=== PATIENT | male | born 1930 | race African-American/Black ===

== ENCOUNTER 2018-01-13 10:53 | Inpatient (IN) | payer OTHER, MEDICARE ==
[2018-01-13] MEDS ORDERED: ASPIRIN 81 MG PO STA (11:21)
--- NOTE | 2018-01-13 11:23 | ED ---
SOB HPI - General Chief Complaint: Shortness of Breath Stated Complaint: SOB/Ankles Swelling Time Seen by Provider: 01/13/18 11:17 Source: patient Mode of arrival: ambulatory Limitations: no limitations - History of Present Illness Initial Comments: Patient complains of shortness of breath. He states that shortness of breath is worse when he lies down to go to bed. He also complains of swelling in the legs. He has bilateral leg swelling. He has no calf pain or tenderness. He has no chest pain or pressure. He has no belly or back pain. He has no headache, lightheadedness or dizziness. He has no neck pain or stiffness. He has no change in vision or hearing. He has taken no new medications for the symptoms. He states he recently started new supplement, and thought his symptoms were related to that. - Related Data Home Medications Medication Instructions Recorded Confirmed Aspirin EC [Ecotrin Low Dose] 81 mg PO HS 01/13/18 01/13/18 Ferrous Sulfate [Feosol] 325 mg PO BID 01/13/18 01/13/18 Metoprolol Tartrate [Lopressor] 25 mg PO BID 01/13/18 01/13/18 Sun Chlorella 5 tab PO DAILY 01/13/18 01/13/18 diphenhydrAMINE [Benadryl] 25 mg PO BID 01/13/18 01/13/18 traZODone HCL 50 mg PO HS 01/13/18 01/13/18 Allergies Allergy/AdvReac Type Severity Reaction Status Date / Time No Known Allergies Allergy Verified 01/13/18 11:29 Review of Systems ROS Statement: Those systems with pertinent positive or pertinent negative responses have been documented in the HPI. ROS Other: All systems not noted in ROS Statement are negative. Past Medical History Past Medical History: Coronary Artery Disease (CAD) History of Any Multi-Drug Resistant Organisms: None Reported Past Surgical History: Coronary Bypass/CABG Past Psychological History: No Psychological Hx Reported Smoking Status: Former smoker Past Alcohol Use History: Rare Past Drug Use History: None Reported General Exam Limitations: no limitations General appearance: alert, in no apparent distress Head exam: Present: atraumatic, normocephalic, normal inspection Eye exam: Present: normal appearance, PERRL, EOMI. Absent: scleral icterus, conjunctival injection, periorbital swelling ENT exam: Present: normal exam, mucous membranes moist Neck exam: Present: normal inspection. Absent: tenderness, meningismus, lymphadenopathy Respiratory exam: Present: rales. Absent: respiratory distress, wheezes, rhonchi, stridor Cardiovascular Exam: Present: regular rate, normal rhythm, systolic murmur. Absent: diastolic murmur, rubs, gallop, clicks GI/Abdominal exam: Present: soft, normal bowel sounds. Absent: distended, tenderness, guarding, rebound, rigid Extremities exam: Present: normal inspection, full ROM, normal capillary refill , pedal edema. Absent: tenderness, joint swelling, calf tenderness Back exam: Present: normal inspection Neurological exam: Present: alert, oriented X3, CN II-XII intact Psychiatric exam: Present: normal affect, normal mood Skin exam: Present: warm, dry, intact, normal color. Absent: rash Course Vital Signs 01/13/18 01/13/18 01/13/18 10:57 11:34 12:30 Temperature 98.2 F Pulse Rate 79 60 Respiratory 20 18 18 Rate Blood Pressure 138/75 152/81 O2 Sat by Pulse 99 100 Oximetry Medical Decision Making - Medical Decision Making Patient complains of shortness of breath. Chest x-ray reveals pulmonary edema. He hasn't elevated BNP, but negative troponin. I ordered him 40 mg IV Lasix. He will be admitted to the hospital. I will consult cardiology. - Lab Data Result diagrams: 01/13/18 11:20 01/13/18 11:20 Lab Results 01/13/18 01/13/18 01/13/18 Range/Units 11:20 11:20 11:20 WBC 3.8 (3.8-10.6) k/uL RBC 3.00 L (4.30-5.90) m/uL Hgb 8.8 L (13.0-17.5) gm/dL Hct 27.4 L (39.0-53.0) % MCV 91.3 (80.0-100.0) fL MCH 29.4 (25.0-35.0) pg MCHC 32.2 (31.0-37.0) g/dL RDW 13.1 (11.5-15.5) % PT 10.9 (9.0-12.0) sec INR 1.1 (<1.2) APTT 26.8 (22.0-30.0) sec Sodium 124 L (137-145) mmol/L Potassium 4.9 (3.5-5.1) mmol/L Chloride 93 L (98-107) mmol/L Carbon Dioxide 21 L (22-30) mmol/L Anion Gap 10 mmol/L BUN 15 (9-20) mg/dL Creatinine 1.30 H (0.66-1.25) mg/dL Est GFR (CKD-EPI)AfAm 58 (>60 ml/min/1.73 sqM) Est GFR (CKD-EPI)NonAf 50 (>60 ml/min/1.73 sqM) Glucose 90 (74-99) mg/dL Calcium 8.7 (8.4-10.2) mg/dL Magnesium 1.6 (1.6-2.3) mg/dL Total Bilirubin 0.6 (0.2-1.3) mg/dL AST 64 H (17-59) U/L ALT 38 (21-72) U/L Alkaline Phosphatase 66 (38-126) U/L Troponin I (0.000-0.034) ng/mL Total Protein 6.7 (6.3-8.2) g/dL Albumin 3.7 (3.5-5.0) g/dL Lipase 262 (23-300) U/L 01/13/18 Range/Units 11:20 WBC (3.8-10.6) k/uL RBC (4.30-5.90) m/uL Hgb (13.0-17.5) gm/dL Hct (39.0-53.0) % MCV (80.0-100.0) fL MCH (25.0-35.0) pg MCHC (31.0-37.0) g/dL RDW (11.5-15.5) % PT (9.0-12.0) sec INR (<1.2) APTT (22.0-30.0) sec Sodium (137-145) mmol/L Potassium (3.5-5.1) mmol/L Chloride (98-107) mmol/L Carbon Dioxide (22-30) mmol/L Anion Gap mmol/L BUN (9-20) mg/dL Creatinine (0.66-1.25) mg/dL Est GFR (CKD-EPI)AfAm (>60 ml/min/1.73 sqM) Est GFR (CKD-EPI)NonAf (>60 ml/min/1.73 sqM) Glucose (74-99) mg/dL Calcium (8.4-10.2) mg/dL Magnesium (1.6-2.3) mg/dL Total Bilirubin (0.2-1.3) mg/dL AST (17-59) U/L ALT (21-72) U/L Alkaline Phosphatase (38-126) U/L Troponin I 0.023 (0.000-0.034) ng/mL Total Protein (6.3-8.2) g/dL Albumin (3.5-5.0) g/dL Lipase (23-300) U/L 01/13/18 11:58 Twelve-lead EKG shows ventricular rate 66 bpm, normal LA interval and QRS complexes, no ST elevation or depression, interpreted by me as normal sinus rhythm. Disposition Clinical Impression: Congestive heart failure Disposition: ADMITTED IP TO THIS HOSP Condition: Fair Is patient prescribed a controlled substance at d/c from ED?: No Referrals: [facility],Clinic [Primary Care Provider] - 1-2 days
--- NOTE | 2018-01-13 12:00 | XR ---
EXAMINATION TYPE: XR chest 2V DATE OF EXAM: 01/13/2018 COMPARISON: NONE HISTORY: Chest pain and shortness of breath, bilateral leg edema TECHNIQUE: Frontal and lateral views of the chest are obtained. FINDINGS: Patient is post median sternotomy. Heart is enlarged. Prominent lung lines compatible with COPD. Interstitium is increased. 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 Mild a nterior wedge compression deformity noted at the lower thoracic spine. Bone mineralization is reduced . No pneumothorax. Suspect small pleural effusions, there is blunting the costophrenic angles. IMPRESSION: Findings compatible with congestive heart failure. Follow-up is recommended.
[2018-01-13 12:04] LABS: Albumin 3.7 g/dL (3.5-5.0); Calcium 8.7 mg/dL (8.4-10.2); INR 1.1 (<1.2); Magnesium 1.6 mg/dL (1.6-2.3); Partial Thromboplastin Time 26.8 sec (22.0-30.0); Potassium 4.9 mmol/L (3.5-5.1); Prothrombin Time 10.9 sec (9.0-12.0); Total Bilirubin 0.6 mg/dL (0.2-1.3); Total Protein 6.7 g/dL (6.3-8.2)
[2018-01-13 12:10] LABS: HCT 27.4 % (39.0-53.0); HGB 8.8 gm/dL (13.0-17.5); MCH 29.4 pg (25.0-35.0); MCHC 32.2 g/dL (31.0-37.0); MCV 91.3 fL (80.0-100.0); Mean Platelet Volume 9.8; RDW 13.1 % (11.5-15.5); WBC 3.8 k/uL (3.8-10.6)
[2018-01-13] MEDS ORDERED: FUROSEMIDE 10 MG/ML 4 ML VIAL IV STA (12:32)
[2018-01-13] MEDS ORDERED: NALOXONE 0.4 MG/ML 1 ML VIAL IV PRN (12:37)
[2018-01-13 12:46] LABS: Eosinophils # (M) 0.42 k/uL (0-0.7); Lymphocytes # (M) 0.76 k/uL (1.0-4.8); Monocytes # (M) 0.46 k/uL (0-1.0); Neutrophils # (M) 2.17 k/uL (1.3-7.7); Neutrophils % (M) 57 %; Nucleated Red Blood Cells 0 /100 WBC (0-0); Total Cells Counted 100
[2018-01-13 12:48] LABS: Poikilocytosis (M) Present
--- NOTE | 2018-01-13 16:58 | P.HPIM ---
History of Present Illness Patient given comments of shortness of breath orthopnea and paroxysmal nocturnal dyspnea going on for 3 days patient does have pedal edema elevated JVD does have pulmonary edema on the chest x-ray patient had open heart surgery for valve replacement patient doesn't exactly remember what valve was replaced patient denied any fever chills patient was complaining of cough without any significant sputum production patient denied any lightheadedness dizziness. Fevers. Patient is being admitted for CHF exacerbation regarding her will be obtained. Review of Systems REVIEW OF SYSTEMS: CONSTITUTIONAL: No fever, no malaise, no fatigue. HEENT: No recent visual problems or hearing problems. Denied any sore throat. CARDIOVASCULAR: No chest pain, PULMONARY: No shortness of breath, no cough, no hemoptysis. GASTROINTESTINAL: No diarrhea, no nausea, no vomiting, no abdominal pain. Normoactive bowel sounds. NEUROLOGICAL: No headaches, no weakness, no numbness. HEMATOLOGICAL: Denies any bleeding or petechiae. GENITOURINARY: Denies any burning micturition, frequency, or urgency. MUSCULOSKELETAL/RHEUMATOLOGICAL: Denies any joint pain, swelling, or any muscle pain. ENDOCRINE: Denies any polyuria or polydipsia. The rest of the 14-point review of systems is negative. Past Medical History Past Medical History: Coronary Artery Disease (CAD) History of Any Multi-Drug Resistant Organisms: None Reported Past Surgical History: Coronary Bypass/CABG Smoking Status: Former smoker - Past Family History Father Family Medical History: Cancer Additional Family Medical History / Comment(s): lung cancer Sister(s) Family Medical History: Cancer Medications and Allergies Home Medications Medication Instructions Recorded Confirmed Type Aspirin EC [Ecotrin Low Dose] 81 mg PO HS 01/13/18 01/13/18 History Ferrous Sulfate [Feosol] 325 mg PO BID 01/13/18 01/13/18 History Metoprolol Tartrate [Lopressor] 25 mg PO BID 01/13/18 01/13/18 History Sun Chlorella 5 tab PO DAILY 01/13/18 01/13/18 History diphenhydrAMINE [Benadryl] 25 mg PO BID 01/13/18 01/13/18 History traZODone HCL 50 mg PO HS 01/13/18 01/13/18 History Allergies Allergy/AdvReac Type Severity Reaction Status Date / Time No Known Allergies Allergy Verified 01/13/18 11:29 Physical Exam Vitals: Vital Signs Temp Pulse Resp BP Pulse Ox 01/13/18 16:30 74 16 171/85 96 01/13/18 15:30 72 16 159/86 97 01/13/18 14:30 66 18 145/84 100 01/13/18 13:37 63 18 126/89 100 01/13/18 12:30 60 18 152/81 100 01/13/18 11:34 18 01/13/18 10:57 98.2 F 79 20 138/75 99 Intake and Output 01/13/18 01/13/18 01/13/18 06:59 14:59 22:59 Other: Weight 61.235 kg PHYSICAL EXAMINATION: GENERAL: The patient is alert and oriented x3, not in any acute distress. Well developed, well nourished. HEENT: Pupils are round and equally reacting to light. EOMI. No scleral icterus. No conjunctival pallor. Normocephalic, atraumatic. No pharyngeal erythema. No thyromegaly. CARDIOVASCULAR: S1 and S2 present. No murmurs, rubs, or gallops. Patient does have elevated JVD PULMONARY: Diffuse bilateral crackles were appreciated in bilateral lung phillips. ABDOMEN: Soft, nontender, nondistended, normoactive bowel sounds. No palpable organomegaly. MUSCULOSKELETAL: No joint swelling or deformity. EXTREMITIES: No cyanosis, clubbing, or does have 1+ pitting pedal edema. NEUROLOGICAL: Gross neurological examination did not reveal any focal deficits. SKIN: No rashes. Results CBC & Chem 7: 01/13/18 11:20 01/13/18 11:20 Labs: Abnormal Lab Results - Last 24 Hours (Table) 01/13/18 01/13/18 Range/Units 11:20 11:20 RBC 3.00 L (4.30-5.90) m/uL Hgb 8.8 L (13.0-17.5) gm/dL Hct 27.4 L (39.0-53.0) % Lymphocytes # (Manual) 0.76 L (1.0-4.8) k/uL Sodium 124 L (137-145) mmol/L Chloride 93 L (98-107) mmol/L Carbon Dioxide 21 L (22-30) mmol/L Creatinine 1.30 H (0.66-1.25) mg/dL AST 64 H (17-59) U/L Assessment and Plan Plan: -Possible new onset congestive heart failure do not have any ejection fraction available patient will be treated for CHF exacerbation, patient will be started on IV Lasix will obtain echocardiogram cardiology was consulted troponin so far negative -History of valve replacement unsure which valve was replaced may be contributing to his CHF -Hyponatremia: Hypervolemic hyponatremia expected to improve with IV Lasix -Renal failure: I do not have his baseline creatinine can be chronic kidney disease or acute renal failure will continue with Lasix repeat basic metabolic profile tomorrow -Anemia chronic etiology is unknown will need further evaluation as an outpatient outpatient patient has normocytic anemia
[2018-01-13] MEDS: METOPROLOL TARTRATE 25 MG TAB PO SCH (21:55)
[2018-01-13] MEDS: FERROUS SULFATE 325 MG TAB PO SCH (21:55)
[2018-01-13] MEDS: traZODone HCL 50 MG TAB PO SCH (21:55)
[2018-01-13] MEDS: FUROSEMIDE 10 MG/ML 4 ML VIAL IV SCH (21:57)
[2018-01-13] MEDS: FAMOTIDINE 20 MG TAB PO SCH (21:57)
[2018-01-14 07:40] LABS: Calcium 8.6 mg/dL (8.4-10.2); Potassium 4.1 mmol/L (3.5-5.1)
[2018-01-14] MEDS: FUROSEMIDE 10 MG/ML 4 ML VIAL IV SCH ×2 (07:52→19:46)
[2018-01-14] MEDS: METOPROLOL TARTRATE 25 MG TAB PO SCH ×2 (07:53→19:46)
[2018-01-14] MEDS: FAMOTIDINE 20 MG TAB PO SCH ×2 (07:53→19:45)
[2018-01-14] MEDS: FERROUS SULFATE 325 MG TAB PO SCH ×2 (07:53→19:46)
--- NOTE | 2018-01-14 10:43 | P.CRDCN ---
History of Present Illness Consult date: 01/14/18 Requesting physician: Iva Quinn Consult reason: congestive heart failure Chief complaint: Shortness of breath History of present illness: This is a pleasant 87-year-old -[place] gentleman with known history of prior aortic valve replacement with tissue valve, hypertension, [facility] [place]. [place] [facility] [place] He presents to the hospital with symptoms of a 3 day duration of shortness of breath with associated bilateral lower extremity edema. His blood pressure on arrival here was 138/75 , heart rate in the 70s, 99 percent on room air. A blood cell count 3.8, hemoglobin 8.8, platelet count not calculated. Sodium on admission 124, this morning 1:30. BUN 18, creatinine 1.3. Magnesium level I.6. Troponins 0.0-3, 0.012, 0.012. BNP level 5450. Patient was initiated on IV Lasix in the emergency room. According to him he has not been told in the past had any congestive heart failure. His home medications include metoprolol 25 mg twice a day, iron supplementation and a baby aspirin daily. Patient did diurese well through the night on IV Lasix although his weight is not reflective of this. He does state that his breathing has improved since his admission, edema is significantly less as well. Past Medical History Past Medical History: Coronary Artery Disease (CAD) History of Any Multi-Drug Resistant Organisms: None Reported Past Surgical History: Coronary Bypass/CABG Smoking Status: Former smoker - Past Family History Father Family Medical History: Cancer Additional Family Medical History / Comment(s): lung cancer Sister(s) Family Medical History: Cancer Medications and Allergies Home Medications Medication Instructions Recorded Confirmed Type Aspirin EC [Ecotrin Low Dose] 81 mg PO HS 01/13/18 01/13/18 History Ferrous Sulfate [Feosol] 325 mg PO BID 01/13/18 01/13/18 History Metoprolol Tartrate [Lopressor] 25 mg PO BID 01/13/18 01/13/18 History Sun Chlorella 5 tab PO DAILY 01/13/18 01/13/18 History diphenhydrAMINE [Benadryl] 25 mg PO BID 01/13/18 01/13/18 History traZODone HCL 50 mg PO HS 01/13/18 01/13/18 History Allergies Allergy/AdvReac Type Severity Reaction Status Date / Time No Known Allergies Allergy Verified 01/13/18 11:29 Physical Exam Vitals: Vital Signs Temp Pulse Pulse Resp BP BP Pulse Ox 01/14/18 08:00 98.2 F 73 18 113/67 94 L 01/14/18 04:00 98 F 71 18 120/70 96 01/14/18 00:00 71 18 133/71 97 01/13/18 20:00 96.9 F L 76 18 141/69 98 01/13/18 18:43 74 18 01/13/18 17:40 98.2 F 75 18 170/87 100 01/13/18 16:30 74 16 171/85 96 01/13/18 15:30 72 16 159/86 97 01/13/18 14:30 66 18 145/84 100 01/13/18 13:37 63 18 126/89 100 01/13/18 12:30 60 18 152/81 100 01/13/18 11:34 18 01/13/18 10:57 98.2 F 79 20 138/75 99 Intake and Output 01/13/18 01/14/18 01/14/18 22:59 06:59 14:59 Intake Total 240 Output Total 850 1550 280 Balance -850 -1550 -40 Intake: Oral 240 Output: Urine 850 1550 280 Other: Voiding Method Urinal Urinal Urinal # Voids 1 1 1 Weight 64.5 kg PHYSICAL EXAMINATION: GENERAL: -[place]e 87-year-old gentleman in no apparent distress at the time of my examination. HEENT: Head is atraumatic, normocephalic. Pupils equal, round. Sclera anicteric. Conjunctiva are clear. Mucous membranes of the mouth are moist. Neck is supple. There is elevated jugular venous pressure.] bruit is heard. HEART EXAMINATION: Heart S1 S2 1 systolic murmur is heard. CHEST EXAMINATION: Lungs reveal diminished air entry to bilateral bases. ABDOMEN: Soft, nontender. Bowel sounds are heard. No organomegaly noted. EXTREMITIES: 2+ peripheral pulses with trace evidence of peripheral edema and no calf tenderness noted. NEUROLOGIC patient is awake, alert and oriented -3. . Results 01/13/18 11:20 01/14/18 06:57 Cardiac Enzymes 01/13/18 01/13/18 01/13/18 Range/Units 11:20 11:20 17:37 AST 64 H (17-59) U/L Troponin I 0.023 <0.012 (0.000-0.034) ng/mL 01/13/18 Range/Units 22:56 AST (17-59) U/L Troponin I 0.012 (0.000-0.034) ng/mL Coagulation 01/13/18 Range/Units 11:20 PT 10.9 (9.0-12.0) sec APTT 26.8 (22.0-30.0) sec CBC 01/13/18 Range/Units 11:20 WBC 3.8 (3.8-10.6) k/uL RBC 3.00 L (4.30-5.90) m/uL Hgb 8.8 L (13.0-17.5) gm/dL Hct 27.4 L (39.0-53.0) % Plt Count (150-450) k/uL Comprehensive Metabolic Panel 01/13/18 01/14/18 Range/Units 11:20 06:57 Sodium 124 L 130 L (137-145) mmol/L Potassium 4.9 4.1 (3.5-5.1) mmol/L Chloride 93 L 94 L (98-107) mmol/L Carbon Dioxide 21 L 25 (22-30) mmol/L BUN 15 18 (9-20) mg/dL Creatinine 1.30 H 1.30 H (0.66-1.25) mg/dL Glucose 90 78 (74-99) mg/dL Calcium 8.7 8.6 (8.4-10.2) mg/dL AST 64 H (17-59) U/L ALT 38 (21-72) U/L Alkaline Phosphatase 66 (38-126) U/L Total Protein 6.7 (6.3-8.2) g/dL Albumin 3.7 (3.5-5.0) g/dL Current Medications Generic Name Dose Route Start Last Admin Trade Name Freq PRN Reason Stop Dose Admin Aspirin 81 mg 01/14/18 21:00 Aspirin PO HS YAHIR Famotidine 20 mg 01/13/18 21:00 01/14/18 07:53 Pepcid PO 20 mg BID YAHIR Administration Ferrous Sulfate 325 mg 01/13/18 21:00 01/14/18 07:53 Feosol PO 325 mg BID YAHIR Administration Furosemide 40 mg 01/13/18 21:00 01/14/18 07:52 Lasix IV 40 mg Q12HR YAHIR Administration Metoprolol Tartrate 25 mg 01/13/18 21:00 01/14/18 07:53 Lopressor PO 25 mg BID YAHIR Administration Naloxone HCl 0.2 mg 01/13/18 12:37 Narcan IV Q2M PRN Opioid Reversal Trazodone HCl 50 mg 01/13/18 21:00 01/13/18 21:55 Desyrel PO 50 mg HS YAHIR Administration Intake and Output 01/13/18 01/14/18 01/14/18 22:59 06:59 14:59 Intake Total 240 Output Total 850 1550 280 Balance -850 -1550 -40 Intake: Oral 240 Output: Urine 850 1550 280 Other: Voiding Method Urinal Urinal Urinal # Voids 1 1 1 Weight 64.5 kg 01/13/18 11:20 01/14/18 06:57 EKG Interpretations (text) EKG shows a normal sinus rhythm with no acute changes. 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 #3 hypertension #4 anemia, hemoglobin 8.8 #5 hyponatremia Plan We will order an echocardiogram with Doppler study. Continue IV Lasix. Monitor intake and output along with daily weights, daily lytes BUN and creatinine. DNP note has been reviewed, I agree with a documented findings and plan of care. Patient was seen and examined.
[2018-01-14 14:01] VITALS: BMI 20.9
--- NOTE | 2018-01-14 15:02 | P.CRDCN ---
History of Present Illness History of present illness: Patient interviewed and examined. Admitted with shortness of breath for the last 3-4 days only especially when he lay flat. On examination he has a murmur of mitral regurgitation, pansystolic. Prior dictated valve replacement with a tissue valve when he is back Responded to medical treatment. Suggest 2-D echo to assess the mitral valve May consider MARIVEL depending upon the findings, if indicated Past Medical History Past Medical History: Coronary Artery Disease (CAD) History of Any Multi-Drug Resistant Organisms: None Reported Past Surgical History: Coronary Bypass/CABG Smoking Status: Former smoker - Past Family History Father Family Medical History: Cancer Additional Family Medical History / Comment(s): lung cancer Sister(s) Family Medical History: Cancer Medications and Allergies Home Medications Medication Instructions Recorded Confirmed Type Aspirin EC [Ecotrin Low Dose] 81 mg PO HS 01/13/18 01/13/18 History Ferrous Sulfate [Feosol] 325 mg PO BID 01/13/18 01/13/18 History Metoprolol Tartrate [Lopressor] 25 mg PO BID 01/13/18 01/13/18 History Sun Chlorella 5 tab PO DAILY 01/13/18 01/13/18 History diphenhydrAMINE [Benadryl] 25 mg PO BID 01/13/18 01/13/18 History traZODone HCL 50 mg PO HS 01/13/18 01/13/18 History Allergies Allergy/AdvReac Type Severity Reaction Status Date / Time No Known Allergies Allergy Verified 01/13/18 11:29 Physical Exam Vitals: Vital Signs Temp Pulse Pulse Resp BP BP Pulse Ox 01/14/18 12:10 70 18 01/14/18 12:00 98.2 F 70 18 123/73 100 01/14/18 08:00 98.2 F 73 18 113/67 94 L 01/14/18 04:00 98 F 71 18 120/70 96 01/14/18 00:00 71 18 133/71 97 01/13/18 20:00 96.9 F L 76 18 141/69 98 01/13/18 18:43 74 18 01/13/18 17:40 98.2 F 75 18 170/87 100 01/13/18 16:30 74 16 171/85 96 01/13/18 15:30 72 16 159/86 97 Intake and Output 0601/14/18 01/14/18 06:59 14:59 22:59 Intake Total 1080 Output Total 1550 2120 Balance -1550 -1040 Intake: Oral 1080 Output: Urine 1550 2120 Other: Voiding Method Urinal Urinal # Voids 1 3 Weight 64.5 kg 64.5 kg Results 01/13/18 11:20 01/14/18 06:57 Cardiac Enzymes 01/13/18 01/13/18 Range/Units 17:37 22:56 Troponin I <0.012 0.012 (0.000-0.034) ng/mL Comprehensive Metabolic Panel 01/14/18 Range/Units 06:57 Sodium 130 L (137-145) mmol/L Potassium 4.1 (3.5-5.1) mmol/L Chloride 94 L (98-107) mmol/L Carbon Dioxide 25 (22-30) mmol/L BUN 18 (9-20) mg/dL Creatinine 1.30 H (0.66-1.25) mg/dL Glucose 78 (74-99) mg/dL Calcium 8.6 (8.4-10.2) mg/dL Current Medications Generic Name Dose Route Start Last Admin Trade Name Freq PRN Reason Stop Dose Admin Aspirin 81 mg 01/14/18 21:00 Aspirin PO HS YAHIR Famotidine 20 mg 01/13/18 21:00 01/14/18 07:53 Pepcid PO 20 mg BID YAHIR Administration Ferrous Sulfate 325 mg 01/13/18 21:00 01/14/18 07:53 Feosol PO 325 mg BID YAHIR Administration Furosemide 40 mg 01/13/18 21:00 01/14/18 07:52 Lasix IV 40 mg Q12HR YAHIR Administration Metoprolol Tartrate 25 mg 01/13/18 21:00 01/14/18 07:53 Lopressor PO 25 mg BID YAHIR Administration Naloxone HCl 0.2 mg 01/13/18 12:37 Narcan IV Q2M PRN Opioid Reversal Trazodone HCl 50 mg 01/13/18 21:00 01/13/18 21:55 Desyrel PO 50 mg HS YAHIR Administration Intake and Output 01/14/18 01/14/18 01/14/18 06:59 14:59 22:59 Intake Total 1080 Output Total 1550 2120 Balance -1550 -1040 Intake: Oral 1080 Output: Urine 1550 2120 Other: Voiding Method Urinal Urinal # Voids 1 3 Weight 64.5 kg 64.5 kg Patient Weight 01/15/18 06:59 Weight 64.5 kg 01/13/18 11:20 01/14/18 06:57
--- NOTE | 2018-01-14 15:24 | P.PN ---
Subjective Patient is admitted with new-onset congestive heart failure. Patient had what appears like a cardiac valve replacement in the past. Patient also has mitral regurgitant murmur. Patient has significant improvement in his is a respiratory status pedal edema resolved JVD improved lungs appear clear today. Echocardiogram is still pending. Constitutional: Denied any fatigue denied any fever. Cardio vascular: denied any chest pain, palpitations Gastrointestinal denied any nausea vomiting Pulmonary: Denied any shortness of breath cough Neurologic denied any new focal deficits Objective - Vital Signs Vital signs: Vital Signs Temp 98.2 F 01/14/18 12:00 Pulse 70 01/14/18 12:10 Resp 18 01/14/18 12:10 BP 123/73 01/14/18 12:00 Pulse Ox 100 01/14/18 12:00 Intake & Output 01/13/18 01/14/18 01/14/18 18:59 06:59 18:59 Intake Total 1080 Output Total 2400 2120 Balance -2400 -1040 Weight 61.235 kg 64.5 kg 64.5 kg Intake: Oral 1080 Output: Urine 2400 2120 Other: Voiding Method Urinal Urinal # Voids 1 1 3 - Exam PHYSICAL EXAMINATION: GENERAL: The patient is alert and oriented x3, not in any acute distress. Well developed, well nourished. HEENT: Pupils are round and equally reacting to light. EOMI. No scleral icterus. No conjunctival pallor. Normocephalic, atraumatic. No pharyngeal erythema. No thyromegaly. CARDIOVASCULAR: S1 and S2 present. . JVD improved patient does have S3, mitral regurgitant that is pansystolic murmur in the mitral area and systolic murmur and diuretic area PULMONARY: Diffuse bilateral crackles were appreciated in bilateral lung phillips. ABDOMEN: Soft, nontender, nondistended, normoactive bowel sounds. No palpable organomegaly. MUSCULOSKELETAL: No joint swelling or deformity. EXTREMITIES: No cyanosis, clubbing, or does have 1+ pitting pedal edema. NEUROLOGICAL: Gross neurological examination did not reveal any focal deficits. SKIN: No rashes. - Labs CBC & Chem 7: 01/13/18 11:20 01/14/18 06:57 Labs: Abnormal Lab Results - Last 24 Hours (Table) 01/14/18 Range/Units 06:57 Sodium 130 L (137-145) mmol/L Chloride 94 L (98-107) mmol/L Creatinine 1.30 H (0.66-1.25) mg/dL Assessment and Plan Plan: -Possible new onset congestive heart failure do not have any ejection fraction available patient will be treated for CHF exacerbation, improved heart failure symptoms with IV Lasix which will be continued echocardiac exam is pending -History of valve replacement appears to be adequate replacement. -Possibility of mitral regurgitation -Hyponatremia: Hypervolemic hyponatremia improving with IV Lasix -Renal failure: I do not have his baseline creatinine can be chronic kidney disease or acute renal failure, patient's creatinine remained stable continue with Lasix. Presently 1.3 on admission it was 1.3 -Anemia chronic etiology is unknown will need further evaluation as an outpatient outpatient patient has normocytic anemia
--- NOTE | 2018-01-14 15:43 | ECHOF ---
Referral Reason:CHF MEASUREMENTS -------- HEIGHT: 175.3 cm WEIGHT: 61.2 kg BP: 126/89 RVIDd: 3.0 cm (< 3.3) IVSd: 1.5 cm (0.6 - 1.1) LVIDd: 3.5 cm (3.9 - 5.3) LVPWd: 1.6 cm (0.6 - 1.1) IVSs: 1.7 cm LVIDs: 2.2 cm LVPWs: 1.7 cm LAESV Index (A-L): 81.29 ml/m Ao Diam: 3.7 cm (2.0 - 3.7) LA Diam: 5.3 cm (2.7 - 3.8) EPSS: 0.6 cm MV E Estuardo: 1.25 m/s MV DecT: 168 ms MV A Estuardo: 0.47 m/s MV E/A Ratio: 2.67 AV maxP.72 mmHg AV meanP.30 mmHg RAP: 15.00 mmHg RVSP: 62.54 mmHg MV EF SLOPE: 314.21 mm/s (70 - 150) MV EXCURSION: 3.17 cm (> 18.000) FINDINGS -------- Sinus rhythm. This was a technically good study. The left ventricular size is normal. There is moderate concentric left ventricular hypertrophy. O verall left ventricular systolic function is normal with, an EF between 60 - 65 %. The right ventricle is normal in size and function. LA is severely dilated >40 ml/m2 The right atrium is markedly enlarged. There is no evidence of aortic regurgitation. There is no evidence of aortic stenosis. Peak/mean gradient across the Aortic Valve is 25.72mmHg / 9.30mmHg. Normally functioning bioprosthetic valve. The mitral valve leaflets are moderately thickened. Mild mitral annular calcification present. Mo [id number] mitral regurgitation is present. Severe tricuspid regurgitation present. There is moderate pulmonary hypertension. The right ventr icular systolic pressure, as measured by Doppler, is 62.54mmHg. Trace/mild (physiologic) pulmonic regurgitation. The aortic root size is normal. The inferior vena cava is dilated with no significant inspiratory collapse which is consistent estima trevin right atrial pressure of >15mmHg. There is no pericardial effusion. CONCLUSIONS -------- 1. Sinus rhythm. 2. This was a technically good study. 3. The left ventricular size is normal. 4. There is moderate concentric left ventricular hypertrophy. 5. Overall left ventricular systolic function is normal with, an EF between 60 - 65 %. 6. LA is severely dilated >40 ml/m2 7. The right atrium is markedly enlarged. 8. Peak/mean gradient across the Aortic Valve is 25.72mmHg / 9.30mmHg. 9. Normally functioning bioprosthetic valve. 10. The mitral valve leaflets are moderately thickened. 11. Mild mitral annular calcification present. 12. Jjudleyo-gj-phfmur mitral regurgitation is present. 13. Severe tricuspid regurgitation present. 14. There is moderate pulmonary hypertension. 15. The right ventricular systolic pressure, as measured by Doppler, is 62.54mmHg. 16. Trace/mild (physiologic) pulmonic regurgitation. 17. The aortic root size is normal. 18. The inferior vena cava is dilated with no significant inspiratory collapse which is consistent es timated right atrial pressure of >15mmHg. 19. There is no pericardial effusion. [employer] REP: Bang Becker RDCS
[2018-01-14] MEDS: traZODone HCL 50 MG TAB PO SCH (19:54)
[2018-01-14] MEDS ORDERED: ASPIRIN 81 MG PO SCH (21:00)
[2018-01-15 06:38] LABS: Calcium 8.8 mg/dL (8.4-10.2); Potassium 4.1 mmol/L (3.5-5.1)
[2018-01-15] MEDS: FUROSEMIDE 10 MG/ML 4 ML VIAL IV SCH (07:46)
[2018-01-15] MEDS: FERROUS SULFATE 325 MG TAB PO SCH (07:47)
[2018-01-15] MEDS: FAMOTIDINE 20 MG TAB PO SCH (07:47)
[2018-01-15] MEDS: METOPROLOL TARTRATE 25 MG TAB PO SCH (07:47)
[2018-01-15 09:05] VITALS: RESP 18; TEMP 98
[2018-01-15 11:15] VITALS: BP 132/72; PULSE 71
[2018-01-15] MEDS ORDERED: LOSARTAN 50 MG TAB PO SCH (13:00)
--- NOTE | 2018-01-15 13:08 | P.DS ---
Providers Date of admission: 01/13/18 12:37 Attending physician: Iva Quinn Consults: 01/13/18 12:39 Consult Physician Routine Consulting Provider: Sofie Cifuentes Consult Reason/Comments: new onset heart failure Do you want consulting provider notified?: Yes Primary care physician: [facility] Hospital Course: Patient is admitted with new-onset congestive heart failure. Patient had what appears like a cardiac valve replacement in the past. Patient also has mitral regurgitant murmur. Patient has significant improvement in his is a respiratory status pedal edema resolved JVD improved lungs appear clear today. 01/15/2018 Patient is euvolemic at this point of time wanted to be discharged patient is found to have severe mitral regurgitation with moderate pulmonary hypertension with RVSP of around 62. Patient will be discharged on Lasix. Patient does not appear to have any systolic dysfunction may have some diastolic dysfunction. Patient's creatinine and the sodium remained stable. 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 PHYSICAL EXAMINATION: GENERAL: The patient is alert and oriented x3, not in any acute distress. Well developed, well nourished. HEENT: Pupils are round and equally reacting to light. EOMI. No scleral icterus. No conjunctival pallor. Normocephalic, atraumatic. No pharyngeal erythema. No thyromegaly. CARDIOVASCULAR: S1 and S2 present. . JVD improved patient does have S3, mitral regurgitant that is pansystolic murmur in the mitral area PULMONARY: Diffuse bilateral crackles were appreciated in bilateral lung phillips. ABDOMEN: Soft, nontender, nondistended, normoactive bowel sounds. No palpable organomegaly. MUSCULOSKELETAL: No joint swelling or deformity. EXTREMITIES: No cyanosis, clubbing, or does have 1+ pitting pedal edema. NEUROLOGICAL: Gross neurological examination did not reveal any focal deficits. SKIN: No rashes. Assessment and Plan Plan: - new onset congestive heart failure, chronic diastolic dysfunction with acute exacerbation, mitral regurgitation is precipitating his CHF. Patient does have secondary pulmonary hypertension from mitral regurgitation. -History of valve replacement appears to be aortic valve replacement. -Severe mitral regurgitation -Hyponatremia: Hypervolemic hyponatremia improved with Lasix -Renal failure: Probably chronic kidney disease stage III, etiology of chronic kidney disease is unknown -Anemia chronic etiology is unknown will need further evaluation as an outpatient outpatient patient has normocytic anemia Patient Condition at Discharge: Fair Plan - Discharge Summary Discharge Rx Participant: Yes New Discharge Prescriptions: New Furosemide [Lasix] 40 mg PO BID #60 tablet Continue traZODone HCL 50 mg PO HS Aspirin EC [Ecotrin Low Dose] 81 mg PO HS Metoprolol Tartrate [Lopressor] 25 mg PO BID Ferrous Sulfate [Iron (65 MG Elemental)] 325 mg PO BID diphenhydrAMINE [Benadryl] 25 mg PO BID Sun Chlorella 5 tab PO DAILY Discharge Medication List Aspirin EC [Ecotrin Low Dose] 81 mg PO HS 01/13/18 [History] Ferrous Sulfate [Iron (65 MG Elemental)] 325 mg PO BID 01/13/18 [History] Metoprolol Tartrate [Lopressor] 25 mg PO BID 01/13/18 [History] Sun Chlorella 5 tab PO DAILY 01/13/18 [History] diphenhydrAMINE [Benadryl] 25 mg PO BID 01/13/18 [History] traZODone HCL 50 mg PO HS 01/13/18 [History] Furosemide [Lasix] 40 mg PO BID #60 tablet 01/15/18 [Rx] Follow up Appointment(s)/Referral(s): [facility] [Provider Group] - 1 Week (Office to call with time for procedures on Thursday. MARIVEL and cardiac catheterization.) [facility] [Primary Care Provider] - 3 Days (Message left with office updating about patient stay.) Patient Instructions/Handouts: Heart Failure (DC), Left Heart Catheterization ( DC), Transesophageal Echocardiogram (DC), Low Sodium Diet (DC) Discharge Disposition: HOME SELF-CARE
--- NOTE | 2018-01-15 13:16 | PN ---
PROGRESS NOTE Mr. Blue is an 87-year-old male patient who presented with orthopnea, PND and shortness of breath for the last 3 to 4 days only. He has a known bioprosthetic aortic valve in and he underwent surgery many, many years back. On examination, I found a murmur of mitral regurgitation. He underwent a 2D echo after he was treated for his heart failure symptoms. His chest x-ray was consistent with his clinical assessment of congestive heart failure. His 12-lead ECG showed a sinus rhythm with a normal VT with LVH and nonspecific ST-T abnormalities in the lateral precordial leads of about 0.[address]-depression. His 2D echo showed a stable bioprosthetic aortic valve that was functioning normally. The peak gradient was 25. The mean gradient was 9 across this valve. The left atrium was severely dilated. Right atrium was markedly enlarged. Left ventricular systolic function was 60% to 65% with moderate left ventricular hypertrophy. There was severe tricuspid regurgitation and at least moderate to severe mitral regurgitation. Right ventricular systolic pressure is significantly elevated at 62 mmHg and a non-collapsing inferior vena cava. No pericardial effusion. I had a detailed discussion with the patient regarding future plans. On examination today, his heart rates are in the 70s and 80s. He is afebrile 98 degrees Fahrenheit. Blood pressure 132/72 mmHg. Head and neck examination is normal. HEART SOUNDS: There is a pansystolic murmur over the apex. There is a soft ejection systolic murmur over the aortic area. Lungs are clear to auscultation. Extremities are warm, no edema. IMPRESSION: 1. Congestive heart failure secondary to valvular heart disease with preserved left ventricular systolic function. 2. Pulmonary hypertension secondary to valvular heart disease. 3. Bioprosthetic aortic valve that is stable and functioning normally. 4. Severe tricuspid regurgitation secondary to pulmonary hypertension. 5. Significant biatrial enlargement. 6. Left ventricular hypertrophy. 7. Hypertension. SUGGEST: 1. Lasix 60 mg twice daily. 2. Losartan 50 mg daily. 3. Stop metoprolol. The patient would like to go home today and he will come back early next week on Thursday or Thursday for a MARIVEL and coronary angiography. I had a detailed discussion with him regarding management of mitral regurgitation. He understands that if mitral regurgitation is not addressed, then his heart failure would be recurrent and progressive. He will be admitted once again next week and we will re-evaluate his cardiac needs at that point. MAMI / RODYN: [id number] /
[2018-01-15] MEDS ORDERED: FUROSEMIDE 20 MG TAB PO SCH (16:00)
== END 2018-01-15 14:05 | disposition home or self-care (01) | DRG 291 ==
LOC: EC 10:53 → 6SEL 12:37
PROVIDERS: ADMIT Hospitalist; ATTEND Hospitalist
DX: I13.0 Hypertensive heart and chronic kidney disease with heart failure and stage 1 through stage 4 chronic kidney disease, or unspecified chronic kidney disease (principal); I50.33 Acute on chronic diastolic (congestive) heart failure; E87.1 Hypo-osmolality and hyponatremia; N18.3 Chronic kidney disease, stage 3 (moderate); Z87.891 Personal history of nicotine dependence; D63.8 Anemia in other chronic diseases classified elsewhere; I08.1 Rheumatic disorders of both mitral and tricuspid valves; I25.10 Atherosclerotic heart disease of native coronary artery without angina pectoris; Z79.82 Long term (current) use of aspirin; Z79.899 Other long term (current) drug therapy; Z80.1 Family history of malignant neoplasm of trachea, bronchus and lung; Z95.1 Presence of aortocoronary bypass graft; Z95.3 Presence of xenogenic heart valve; I27.22 Pulmonary hypertension due to left heart disease
CPT/HCPCS: 36415; 71046; 80048; 80053; 83690; 83735; 83880; 84484; 85025; 85610; 85730; 93005; 93306; 96374; 99285

== ENCOUNTER → 2019-06-17 | Outpatient (CLI) | payer MEDICARE ==
--- NOTE | 2019-06-17 14:13 | XR ---
EXAMINATION TYPE: XR chest 2V DATE OF EXAM: 06/17/2019 COMPARISON: 01/13/2018 HISTORY: Shortness of breath TECHNIQUE: Frontal and lateral views of the chest are obtained. FINDINGS: Scattered senescent parenchymal changes noted. Hyperinflation compatible with COPD. No evidence for infiltrate. No evidence for atelectasis. Heart size is stable. Mediastinal structures are stable and grossly unremarkable. No evidence for hilar prominence. Degenerative changes dorsal spine. IMPRESSION: 1. No evidence for acute pulmonary disease.
== END | disposition home or self-care (01) ==
LOC: RADXRMAIN 13:50
PROVIDERS: ATTEND Internal Medicine
DX: R06.02 Shortness of breath (principal)
CPT/HCPCS: 71046

== ENCOUNTER 2020-08-25 14:27 | Inpatient (IN) | payer MEDICARE ==
[2020-08-25] MEDS ORDERED: ZOLPIDEM 10 MG TAB PO PRN (19:45)
[2020-08-25] MEDS: IPRATROPIUM-ALBUTEROL 3 ML NEB INHALATION PRN (20:29)
[2020-08-25] MEDS: BUDESONIDE 0.5 MG/2 ML NEBU INHALATION SCH (20:29)
[2020-08-25] MEDS: SODIUM BICARBONATE TAB 650 MG TAB PO SCH (22:14)
[2020-08-25] MEDS: ATORVASTATIN 20 MG TAB PO SCH (22:15)
[2020-08-25] MEDS: METOPROLOL TARTRATE 25 MG TAB PO SCH (22:15)
[2020-08-25] MEDS: MEGESTROL 400 MG/10 ML CUP PO SCH (22:15)
[2020-08-25] MEDS: ASPIRIN 81 MG PO SCH (22:15)
[2020-08-25] MEDS: SODIUM CHLORIDE 0.9% 1,000 ML IV SCH (22:16)
[2020-08-26 06:26] LABS: Basophils % (A) 0 %; Eosinophils # (A) 0.2 k/uL (0-0.7); Eosinophils % (A) 3 %; HCT 22.5 % (39.0-53.0); HGB 7.5 gm/dL (13.0-17.5); Hypochromasia Slight; Lymphocytes # (A) 0.7 k/uL (1.0-4.8); Lymphocytes % (A) 9 %; MCHC 33.3 g/dL (31.0-37.0); MCV 90.1 fL (80.0-100.0); Mean Platelet Volume 8.3; Monocytes # (A) 0.7 k/uL (0-1.0); Monocytes % (A) 9 %; Neutrophils # (A) 5.9 k/uL (1.3-7.7); Neutrophils % (A) 76 %; Platelet Count 116 k/uL (150-450); Poikilocytosis Slight; RDW 15.3 % (11.5-15.5); WBC 7.7 k/uL (3.8-10.6)
[2020-08-26] MEDS: BUDESONIDE 0.5 MG/2 ML NEBU INHALATION SCH ×2 (08:01→19:46)
[2020-08-26] MEDS: IPRATROPIUM-ALBUTEROL 3 ML NEB INHALATION PRN ×2 (08:01→19:46)
[2020-08-26] MEDS: MEGESTROL 400 MG/10 ML CUP PO SCH ×2 (08:47→22:13)
[2020-08-26] MEDS: LOSARTAN 25 MG TAB PO SCH (08:47)
[2020-08-26] MEDS: FUROSEMIDE 20 MG TAB PO SCH (08:47)
[2020-08-26] MEDS: METOPROLOL TARTRATE 25 MG TAB PO SCH ×3 (08:47→22:13)
[2020-08-26] MEDS: FOLIC ACID 1 MG TAB PO SCH (08:47)
[2020-08-26] MEDS: SODIUM BICARBONATE TAB 650 MG TAB PO SCH ×2 (08:48→22:13)
[2020-08-26 09:02] LABS: ALT <8 U/L (10-49); AST 20 U/L (14-35); African American GFR (CKD) 47.8 (60.0-200.0); Alkaline Phosphatase 51 U/L (41-126); BUN/Creat Ratio 15.33 Ratio (12.00-20.00); Calcium 8.6 mg/dL (8.7-10.3); Carbon Dioxide 22.1 mmol/L (21.6-31.8); Chloride 109 mmol/L (96-109); Globulin 1.7 g/dL (1.6-3.3); Glucose 101 mg/dL (70-110); Non-African American GFR(CKD) 41.3 (60.0-200.0); Potassium 3.8 mmol/L (3.5-5.5); Sodium 141 mmol/L (135-145); Total Bilirubin 0.4 mg/dL (0.2-1.2); Total Protein 5.1 g/dL (6.2-8.2)
--- NOTE | 2020-08-26 10:52 | P.HPIM ---
History of Present Illness H&P Date: 08/26/20 Fitz Blue, is an 89-year-old male who presented to [facility] emergency room a week ago with a chief complaint of left lower extremity weakness computed tomography scan of the brain without contrast was done in the emergency room and did not reveal any acute abnormality patient was seen by tele-neurology and they advised to have an MRI of the brain and cervical spine and lumbar spine, MRI was done and revealed evidence of multiple lumbar vertebral fractures, MRI of the brain also revealed possible subacute infarct, patient was transferred to [facility] to be evaluated by neurology and neurosurgery. During his stay at this [facility] patient had anemia he was evaluated by gastroenterology and had an EGD that revealed evidence of gastritis and esophagitis. His past medical history is significant for history of coronary artery disease with history of coronary artery bypass graft surgery, history of valve replacement, history of pulmonary hypertension, history of hypertension, history of hyperlipidemia, history of gout and history of anemia. On review of systems patient is alert and oriented 3 in no distress he is still complaining of weakness in the left lower extremity difficulty walking otherwise he denies any complaints at this time there is no fever or chills no headache or dizziness no chest pain no shortness of breath no cough no nausea or vomiting no abdominal pain no diarrhea and no urinary symptoms. Past Medical History Past Medical History: Coronary Artery Disease (CAD), Cancer, COPD, GI Bleed, Osteoarthritis (OA), Seizure Disorder Additional Past Medical History / Comment(s): lung ca, anemia, seizures 20 years ago History of Any Multi-Drug Resistant Organisms: None Reported Past Surgical History: Coronary Bypass/CABG Past Anesthesia/Blood Transfusion Reactions: No Reported Reaction Past Psychological History: No Psychological Hx Reported Smoking Status: Former smoker Past Alcohol Use History: Rare Past Drug Use History: None Reported - Past Family History Father Family Medical History: Cancer Additional Family Medical History / Comment(s): lung cancer Sister(s) Family Medical History: Cancer Medications and Allergies Home Medications Medication Instructions Recorded Confirmed Type Aspirin EC [Ecotrin Low Dose] 81 mg PO HS 01/13/18 08/25/20 History Metoprolol Tartrate [Lopressor] 25 mg PO TID 01/13/18 08/25/20 History Budesonide [Pulmicort] 0.5 mg INHALATION RT-BID 08/25/20 08/25/20 History Folic Acid 1 mg PO DAILY 08/25/20 08/25/20 History Furosemide [Lasix] 20 mg PO DAILY 08/25/20 08/25/20 History Ipratropium-Albuterol Nebulize 3 ml INHALATION RT-Q6H PRN 08/25/20 08/25/20 History [Duoneb 0.5 mg-3 mg/3 ml Soln] Losartan Potassium [Cozaar] 25 mg PO DAILY 08/25/20 08/25/20 History Megestrol [Megace] 400 mg PO BID 08/25/20 08/25/20 History Simvastatin [Zocor] 40 mg PO HS 08/25/20 08/25/20 History Sodium Bicarbonate Tab 650 mg PO BID 08/25/20 08/25/20 History Zolpidem [Ambien] 10 mg PO HS PRN 08/25/20 08/25/20 History Allergies Allergy/AdvReac Type Severity Reaction Status Date / Time No Known Allergies Allergy Verified 08/25/20 18:11 Physical Exam Vitals: Vital Signs Temp Pulse Pulse Resp BP BP Pulse Ox 08/26/20 08:14 100 08/26/20 08:01 100 08/26/20 05:03 97.8 F 107 H 18 138/72 97 08/25/20 22:03 100.2 F H 106 H 16 129/69 96 08/25/20 20:44 104 H 08/25/20 20:30 105 H 08/25/20 20:00 16 08/25/20 17:29 97.9 F 116 H 16 154/81 95 Intake and Output 08/25/20 08/26/20 08/26/20 22:59 06:59 14:59 Output Total 400 Balance -400 Output: Urine 400 Other: Voiding Method Bedpan Urinal # Bowel Movements 0 Weight 51.71 kg In general patient is alert and oriented 3 in no apparent distress HEENT head normocephalic and atraumatic Neck is supple no JVD no goiter no lymphadenopathy Chest exam reveals a few scattered rhonchi no wheezing Cardiac exam reveals regular heart sounds S1 and S2 no gallops no murmurs Abdomen is soft nontender no organomegaly with normal bowel sounds Extremity exam reveals no edema no cyanosis or clubbing Neurological examination reveals, mild weakness in the left lower extremity as compared to the right otherwise no significant findings Results CBC & Chem 7: 08/26/20 06:04 08/26/20 06:04 Labs: Abnormal Lab Results - Last 24 Hours (Table) 08/26/20 08/26/20 Range/Units 06:04 06:04 RBC 2.50 L (4.30-5.90) m/uL Hgb 7.5 L (13.0-17.5) gm/dL Hct 22.5 L (39.0-53.0) % Plt Count 116 L (150-450) k/uL Lymphocytes # 0.7 L (1.0-4.8) k/uL Est GFR (CKD-EPI)AfAm 47.8 L (60.0-200.0) Est GFR (CKD-EPI)NonAf 41.3 L (60.0-200.0) Calcium 8.6 L (8.7-10.3) mg/dL ALT <8 L (10-49) U/L Total Protein 5.1 L (6.2-8.2) g/dL Albumin 3.40 L (3.80-4.90) g/dL Thrombosis Risk Factor Assmnt - Choose All That Apply Each Factor Represents 1 point: Abnormal pulmonary function (COPD) Other Risk Factors: Yes Each Risk Factor Represents 2 Points: Malignancy Each Risk Factor Represents 3 Points: Age 75 years or older Other congenital or acquired thrombophilia - If yes, enter type in comment: No Thrombosis Risk Factor Assessment Total Risk Factor Score: 6 Thrombosis Risk Factor Assessment Level: High Risk Assessment and Plan Plan: 1. Left lower extremity weakness with multiple falls 2. 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 Evidence of multiple lumbar compression vertebral fractures on MRI 4. Underlying history of hypertension 5. Underlying history of hyperlipidemia 6. Underlying history of coronary artery disease with history of coronary artery bypass graft surgery 7. Underlying history of valve replacement 8. Underlying history of pulmonary hypertension 9. Anemia with recent EGD done at [facility] At this time patient is transferred to [facility] Neurology consultation was requested in regard to subacute infarct on brain MRI and neurosurgery consultation was requested in regard to multiple lumbar vertebral fractures Will continue to monitor hemoglobin closely Will follow during this admission Prognosis is guarded due to advanced age and multiple medical problems
--- NOTE | 2020-08-26 11:30 | P.CNOR ---
History of Present Illness - HPI Consult date: 08/26/20 History of present illness: This is an 89-year-old male who was transferred from [facility]. Patient was admitted to [facility] on 08/19/2020 after a fall. Per the patient's chart, he was found to have left lower extremity weakness when working with physical therapy. Patient underwent multiple MRIs and was transferred for neurology consult. Orthopedics is consulted due to multiple lumbar compression fractures. Patient is seen and evaluated at bedside today. Patient states that he fell at home and had to crawl in order to call for help. Patient states that he lives alone and has a visiting nurse. Patient states that prior to his fall he was able to ambulate with a cane. Patient states that he has tried to work with physical therapy since his fall, but is unable to walk due to left lower extremity weakness. Patient also reports weakness in his left upper extremity. Patient does admit to some pain in his lower back. Patient denies any numbness, weakness or tingling. Patient's past medical history is significant for coronary artery disease, history of GI bleed, seizure disorder, osteoarthritis, COPD, history of lung cancer and history of anemia. Review of Systems See HPI. Past Medical History Past Medical History: Coronary Artery Disease (CAD), Cancer, COPD, GI Bleed, Osteoarthritis (OA), Seizure Disorder Additional Past Medical History / Comment(s): lung ca, anemia, seizures 20 years ago History of Any Multi-Drug Resistant Organisms: None Reported Past Surgical History: Coronary Bypass/CABG Past Anesthesia/Blood Transfusion Reactions: No Reported Reaction Past Psychological History: No Psychological Hx Reported Smoking Status: Former smoker Past Alcohol Use History: Rare Past Drug Use History: None Reported - Past Family History Father Family Medical History: Cancer Additional Family Medical History / Comment(s): lung cancer Sister(s) Family Medical History: Cancer Medications and Allergies Home Medications Medication Instructions Recorded Confirmed Type Aspirin EC [Ecotrin Low Dose] 81 mg PO HS 01/13/18 08/25/20 History Metoprolol Tartrate [Lopressor] 25 mg PO TID 01/13/18 08/25/20 History Budesonide [Pulmicort] 0.5 mg INHALATION RT-BID 08/25/20 08/25/20 History Folic Acid 1 mg PO DAILY 08/25/20 08/25/20 History Furosemide [Lasix] 20 mg PO DAILY 08/25/20 08/25/20 History Ipratropium-Albuterol Nebulize 3 ml INHALATION RT-Q6H PRN 08/25/20 08/25/20 History [Duoneb 0.5 mg-3 mg/3 ml Soln] Losartan Potassium [Cozaar] 25 mg PO DAILY 08/25/20 08/25/20 History Megestrol [Megace] 400 mg PO BID 08/25/20 08/25/20 History Simvastatin [Zocor] 40 mg PO HS 08/25/20 08/25/20 History Sodium Bicarbonate Tab 650 mg PO BID 08/25/20 08/25/20 History Zolpidem [Ambien] 10 mg PO HS PRN 08/25/20 08/25/20 History Allergies Allergy/AdvReac Type Severity Reaction Status Date / Time No Known Allergies Allergy Verified 08/25/20 18:11 Physical Examination On exam patient is resting comfortably in bed in no acute distress. Patient is alert and oriented 3. There is no tenderness to palpation over the lumbar spine. Patient has weakness of the left upper extremity, but is able to actively elevate the left upper extremity. Patient has full range of motion of bilateral lower extremities without pain or difficulty. Patient has some weakness with active dorsiflexion of the left foot and ankle. There is no loss of sensation to the first dorsal webspace of the left lower extremity. There is weakness of EHL on the left. EHL intact on the right. Sensation intact. The left lower extremity is warm and well perfused. Results An MRI report of the lumbar spine shows: There is no abnormal signal seen within the visualized spinal cord or paraspinal soft tissues. Heterogenous signal is present over all within the marrow. Intermediate low signal at superior endplate of L5, L4, L3 is consistent with subacute superior endplate compression deformities. A CT of the lumbar spine dated 08/21/2020 shows: Multiple compression fractures in the lumbar spine consistent with osteomalacia. Mild to moderate L5 bony spinal stenosis. Cortical edges are somewhat irregular at L3 and L4 these could be relatively acute fractures. - Labs Labs: Abnormal Lab Results - Last 24 Hours (Table) 08/26/20 08/26/20 Range/Units 06:04 06:04 RBC 2.50 L (4.30-5.90) m/uL Hgb 7.5 L (13.0-17.5) gm/dL Hct 22.5 L (39.0-53.0) % Plt Count 116 L (150-450) k/uL Lymphocytes # 0.7 L (1.0-4.8) k/uL Est GFR (CKD-EPI)AfAm 47.8 L (60.0-200.0) Est GFR (CKD-EPI)NonAf 41.3 L (60.0-200.0) Calcium 8.6 L (8.7-10.3) mg/dL ALT <8 L (10-49) U/L Total Protein 5.1 L (6.2-8.2) g/dL Albumin 3.40 L (3.80-4.90) g/dL H & H 08/26/20 Range/Units 06:04 Hgb 7.5 L (13.0-17.5) gm/dL Hct 22.5 L (39.0-53.0) % Result Diagrams: 08/26/20 06:04 08/26/20 06:04 Assessment and Plan (1) Weakness of left leg Current Visit: Yes Status: Acute Code(s): R29.898 - OTH SYMPTOMS AND SIGNS INVOLVING THE MUSCULOSKELETAL SYSTEM SNOMED Code(s): 668244006 (2) Compression fx, lumbar spine Current Visit: Yes Status: Acute Code(s): S32.000A - WEDGE COMPRESSION FRACTURE OF UNSP LUMBAR VERTEBRA, INIT SNOMED Code(s): 957857162 (3) Fall Current Visit: Yes Status: Acute Code(s): W19.XXXA - UNSPECIFIED FALL, INITIAL ENCOUNTER SNOMED Code(s): 5438332 Plan: 1. MRI and CT reports are reviewed. Imaging is not yet uploaded for review. Will review images when uploaded. 2. Will obtain LSO brace to be worn when the patient is out of bed. 3. Recommended physical therapy. 4. Patient is awaiting neurology consult due to subacute infarct on brain MRI. 5. No surgical intervention planned at this time. Will review imaging when uploaded to [facility]. Will continue to follow.
[2020-08-26 14:00] VITALS: BMI 16.8
[2020-08-26] MEDS: PANTOPRAZOLE 40 MG TABLET PO SCH (15:51)
[2020-08-26] MEDS: ATORVASTATIN 20 MG TAB PO SCH (22:13)
[2020-08-26] MEDS: ASPIRIN 81 MG PO SCH (22:13)
[2020-08-26] MEDS: SODIUM CHLORIDE 0.9% 1,000 ML IV SCH (22:16)
[2020-08-27 05:38] LABS: Basophils % (A) 0 %; Eosinophils # (A) 0.2 k/uL (0-0.7); Eosinophils % (A) 3 %; HCT 22.1 % (39.0-53.0); HGB 7.1 gm/dL (13.0-17.5); Hypochromasia Slight; Lymphocytes # (A) 0.6 k/uL (1.0-4.8); Lymphocytes % (A) 8 %; MCHC 32.3 g/dL (31.0-37.0); MCV 89.9 fL (80.0-100.0); Mean Platelet Volume 9.2; Monocytes # (A) 0.5 k/uL (0-1.0); Monocytes % (A) 6 %; Neutrophils # (A) 5.8 k/uL (1.3-7.7); Neutrophils % (A) 79 %; Platelet Count 113 k/uL (150-450); Poikilocytosis Slight; RBC 2.46 m/uL (4.30-5.90); RDW 15.7 % (11.5-15.5); WBC 7.4 k/uL (3.8-10.6)
[2020-08-27] MEDS: PANTOPRAZOLE 40 MG TABLET PO SCH (07:41)
[2020-08-27] MEDS: FOLIC ACID 1 MG TAB PO SCH (07:42)
[2020-08-27] MEDS: FUROSEMIDE 20 MG TAB PO SCH (07:42)
[2020-08-27] MEDS: METOPROLOL TARTRATE 25 MG TAB PO SCH ×3 (07:43→21:03)
[2020-08-27] MEDS: LOSARTAN 25 MG TAB PO SCH (07:43)
[2020-08-27] MEDS: MEGESTROL 400 MG/10 ML CUP PO SCH ×2 (08:13→21:05)
[2020-08-27] MEDS: SODIUM BICARBONATE TAB 650 MG TAB PO SCH ×2 (08:13→21:05)
[2020-08-27 09:14] LABS: Albumin 3.3 g/dL (3.80-4.90); Albumin/Globulin Ratio 1.83 (1.60-3.17); Anion Gap 10.4 mmol/L (4.00-12.00); BUN/Creat Ratio 18.57 Ratio (12.00-20.00); Calcium 8.6 mg/dL (8.7-10.3); Carbon Dioxide 23.6 mmol/L (21.6-31.8); Globulin 1.8 g/dL (1.6-3.3); Non-African American GFR(CKD) 44.9 (60.0-200.0); Potassium 3.7 mmol/L (3.5-5.5); Total Bilirubin 0.3 mg/dL (0.2-1.2); Total Protein 5.1 g/dL (6.2-8.2)
[2020-08-27] MEDS ORDERED: SODIUM FERRIC GLUCONAT-SUCROSE 125 MG in SODIUM CHLORIDE 0.9% 100 ML IVPB ONE (11:00)
[2020-08-27] MEDS: BUDESONIDE 0.5 MG/2 ML NEBU INHALATION SCH ×2 (11:09→21:19)
[2020-08-27] MEDS: IPRATROPIUM-ALBUTEROL 3 ML NEB INHALATION PRN ×2 (11:09→21:19)
--- NOTE | 2020-08-27 12:24 | P.CNNES ---
History of Present Illness Consult date: 08/27/20 Requesting physician: Margaret Boss Reason for Consult: Subacute infarct, left leg weakness History of Present Illness: Patient is a 89-year-old male, who initially presented to [facility] on 08/19/2020 with chief complaints of left lower and left upper extremity weakness after a fall. Patient states that he fell out of bed, couldn't get up. He is not sure how he fell. He thinks he may have reached too far and fell. No loss of control of urine, tongue bite or any evidence of seizure. He crawled to the telephone and called 911, and was brought to the hospital. Computed tomography scan of the head without contrast was done in the ER, did not reveal any acute abnormality. Patient was seen by tele-neurology Dr Wayne Herrera and was advised to have an MRI of the brain, cervical spine and lumbar spine. MRI was done and revealed evidence of multiple lumbar vertebral fractures. MRI of the brain also revealed an acute right thalamic infarct. Patient was transferred to [facility] yesterday to be evaluated by neurology and orthopedic spine. Patient also has anemia for which he underwent EGD, which revealed gastritis and esophagitis. Prior to the fall, he was able to ambulate with cane. Patient lives alone and has a visiting nurse, who comes twice a week for 2-1/2 hours each day. Patient is a , has no children. Patient's blood test shows WBC 7.7 hemoglobin 7.5, platelets 116. Chem-7 is normal with BUN 23, creatinine 1.5, GFR 41.3. Hepatic panel normal. TSH no rmal, lipid panel with cholesterol 119, LDL 50.2, HDL 57 and triglycerides 59. MRI of the lumbar spine revealed no abnormal signal within the visualized spinal cord or paraspinal soft tissues. Heterogeneous signal is present over all within the marrow. Intermediate low signal at superior endplate of L5, L4, L3 consistent with subacute superior endplate compression deformities. Patient does take aspirin 81 mg, metoprolol 25 mg 3 times a day, Ambien, simvastatin 40 mg, losartan 25 mg, Lasix 20 mg, folic acid 1 mg. Patient says that since he arrived to the hospital, his left arm is getting b tyshawn and left leg is also slightly better. He denies any history of strokes before. Patient has smoked 1 pack per day for 20-30 years, quit smoking 15 years ago after he had open-heart surgery in which he also had a big valves in the aortic valve. Patient does take aspirin every day. Patient denies any slurred speech or any problem with the vision. On review of records from [facility], patient's cholesterol 151, triglycerides 133 HDL 39 and LDL 85. Stool occult blood positive. Vitamin B12 389, folate >25 Serum Iron 64, transferrin 168 which is slightly decreased, TIBC 209 and also decreased percent saturation normal. UA negative. MRI of the cervical spine without contrast 08/24/2020 revealed very limited motion degraded exam, unable to accurately assess for myelopathic cord signal change. Unable to exclude subtle increased signal at C4 5 level and C6 level. No abnormal expansion of the cord which would be expected with acute compression and cord edema. Underlying chronic compressive myelomalacia is a possibility. The exam should be repeated with higher quality images when the patient is able to determinate if these changes are real or artifactual. Moderate spinal canal stenosis at C2 3, C3 4. MRI of the lumbar spine 08/24/2020 revealed multilevel superior osteoporotic compression fractures. Mild degenerative disc disease and facet arthropathy. No significant spinal stenosis. MRI of the brain without contrast 08/24/2020 showed acute to subacute stroke right thalamus and posterior limb of the external Sole on the right extending into the centrum semiovale. Review of Systems As above in detail. All other review of systems unremarkable. Patient can result generalized weakness, weakness of the left side. Some arthritis. Back pain. Denies any problems with vision, hoarseness, sore throat, dysphagia. Denies any chest pain abdominal pain. Patient does have anemia. Past Medical History Past Medical History: Coronary Artery Disease (CAD), Cancer, COPD, GI Bleed, Osteoarthritis (OA), Seizure Disorder Additional Past Medical History / Comment(s): lung ca, anemia, seizures 20 years ago History of Any Multi-Drug Resistant Organisms: None Reported Past Surgical History: Coronary Bypass/CABG Past Anesthesia/Blood Transfusion Reactions: No Reported Reaction Past Psychological History: No Psychological Hx Reported Smoking Status: Former smoker Past Alcohol Use History: Rare Past Drug Use History: None Reported - Past Family History Father Family Medical History: Cancer Additional Family Medical History / Comment(s): lung cancer Sister(s) Family Medical History: Cancer Medications and Allergies Home Medications Medication Instructions Recorded Confirmed Type Aspirin EC [Ecotrin Low Dose] 81 mg PO HS 01/13/18 08/25/20 History Metoprolol Tartrate [Lopressor] 25 mg PO TID 01/13/18 08/25/20 History Budesonide [Pulmicort] 0.5 mg INHALATION RT-BID 08/25/20 08/25/20 History Folic Acid 1 mg PO DAILY 08/25/20 08/25/20 History Furosemide [Lasix] 20 mg PO DAILY 08/25/20 08/25/20 History Ipratropium-Albuterol Nebulize 3 ml INHALATION RT-Q6H PRN 08/25/20 08/25/20 History [Duoneb 0.5 mg-3 mg/3 ml Soln] Losartan Potassium [Cozaar] 25 mg PO DAILY 08/25/20 08/25/20 History Megestrol [Megace] 400 mg PO BID 08/25/20 08/25/20 History Simvastatin [Zocor] 40 mg PO HS 08/25/20 08/25/20 History Sodium Bicarbonate Tab 650 mg PO BID 08/25/20 08/25/20 History Zolpidem [Ambien] 10 mg PO HS PRN 08/25/20 08/25/20 History Allergies Allergy/AdvReac Type Severity Reaction Status Date / Time No Known Allergies Allergy Verified 08/25/20 18:11 Physical Examination - Vital Signs Vital Signs: Vital Signs Temp Pulse Pulse Resp BP Pulse Ox 08/27/20 04:40 98.0 F 94 20 150/65 96 08/26/20 20:20 98.2 F 92 16 134/80 98 08/26/20 19:59 84 08/26/20 19:46 94 08/26/20 13:38 97.2 F L 97 20 129/66 99 Intake and Output 08/26/20 08/27/20 08/27/20 22:59 06:59 14:59 Intake Total 180 Balance 180 Intake: Intake, IV Titration 180 Amount Sodium Chloride 0.9% 1, 180 000 ml @ 20 mls/hr IV . Q24H [facility] Rx#:[id number] Other: Voiding Method Bedpan Urinal Urinal # Voids 4 # Bowel Movements 0 On examination patient is an elderly -[place] male, in no acute distress. Patient is alert awake oriented to time place and person. Patient states it is September 2020 and that it is Thursday, and that he is in [facility] in [place]. He knows name of the current president. Speech and language functions are normal. Attention and concentration fund of knowledge is adequate. On cranial evaluation pupils are round and reactive to light, visual phillips are full on confrontation with no neglect. Extraocular muscles are intact with no nystagmus. Face is symmetric, but does protrudes to the midline. Palatal elevation sensation normal, hearing and shoulder shrug normal. On muscle strength testing patient has left pronator drift. The strength is normal in the right arm and right leg. On the left side, his deltoid is 4+, director housekeeping 5-, biceps 5, capsules 4. In the left lower extremity hip flexion is 4-, ankle dorsiflexion 3 to 3-. Reflexes are (right/left) biceps 3/3, brachioradialis 1/2, knees 3/3, ankles 0/0, and plantar is down on the right, up on left. Sensory touch is equal with no neglect on double simultaneous stimulation. Patient is significantly ataxic for bfxhcr-pa-coxm and qxjh-zs-rduw testing on the left side. Tone is equal, bulk of muscles overall decrease. Patient appears cachectic. Gait was deferred. There is no obvious bruit, S1 and S2 audible, abdomen soft nontender, chest is clear. No peripheral edema. Peripheral pulses present. Results - Laboratory Findings CBC and BMP: 08/27/20 05:15 08/27/20 05:15 Abnormal Lab Findings: Abnormal Labs 08/26/20 08/26/20 08/27/20 06:04 06:04 05:15 RBC 2.50 L 2.46 L Hgb 7.5 L 7.1 L Hct 22.5 L 22.1 L RDW 15.7 H Plt Count 116 L 113 L Lymphocytes # 0.7 L 0.6 L Est GFR (CKD-EPI)AfAm 47.8 L Est GFR (CKD-EPI)NonAf 41.3 L Glucose Calcium 8.6 L ALT <8 L Total Protein 5.1 L Albumin 3.40 L 08/27/20 05:15 RBC Hgb Hct RDW Plt Count Lymphocytes # Est GFR (CKD-EPI)AfAm 52.0 L Est GFR (CKD-EPI)NonAf 44.9 L Glucose 112 H Calcium 8.6 L ALT 8 L Total Protein 5.1 L Albumin 3.30 L Assessment and Plan Assessment: * 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 * Status post fall with multiple compression fractures in the lumbar spine. * Hypertension * X tobacco use * Cervical spondylosis, rule out spinal stenosis. MRI cervical spine poor quality. Plan: * Patient had a subacute stroke right thalamus/internal capsule. Patient was on aspirin 81 mg daily. We will switch from aspirin to Plavix 75 mg daily. * Continue Protonix 40 mg daily for gastric ulcer prophylaxis. * Hemoglobin A1c. * I reviewed all records from [facility]. Apparently carotid Doppler and 2-D echo were done, but the results were not available. We will check these tests, if not performed in the outside hospital. Addendum: * Carotid Doppler from 08/18/2020 (report somewhat difficult to interpret). It reports 16-49% irregular heterogenous/smooth plaque. Minimal spectral broadening noted of bilateral common carotid arteries and bilateral external carotid arteries. Bilateral bulbs demonstrate calcified plaque with greater than 50% stenosis. 50-79% irregular heterogenous calcified plaque noted. Mo derate spectral broadening of the bilateral ICAs. * 2-D echo showed normal left ventricular size. Moderate concentric LVH. Left- ventricular ejection fraction 55-60%. No pericardial effusion. No evidence of shunt was identified. * Consider a vascular surgical consultation for moderate to severe bilateral ICA stenosis.
[2020-08-27] MEDS: CLOPIDOGREL 75 MG TAB PO SCH (12:50)
[2020-08-27 12:55] LABS: % Iron Saturation 11.06 (15.00-50.00); Folate, Serum >24.0 ng/mL; Iron 22 ug/dL (65-175); Total Iron Binding Capacity 199 ug/dL (228-460)
--- NOTE | 2020-08-27 17:52 | P.PN ---
Subjective Progress Note Date: 08/27/20 Fitz Blue, is an 89-year-old male who presented to [facility] emergency room a week ago with a chief complaint of left lower extremity weakness computed tomography scan of the brain without contrast was done in the emergency room and did not reveal any acute abnormality patient was seen by tele-neurology and they advised to have an MRI of the brain and cervical spine and lumbar spine, MRI was done and revealed evidence of multiple lumbar vertebral fractures, MRI of the brain also revealed possible subacute infarct, patient was transferred to [facility] to be evaluated by neurology and neurosurgery. During his stay at this [facility] patient had anemia he was evaluated by gastroenterology and had an EGD that revealed evidence of gastritis and esophagitis. His past medical history is significant for history of coronary artery disease with history of coronary artery bypass graft surgery, history of valve replacement, history of pulmonary hypertension, history of hypertension, history of hyperlipidemia, history of gout and history of anemia. On review of systems patient is alert and oriented 3 in no distress he is still complaining of weakness in the left lower extremity difficulty walking otherwise he denies any complaints at this time there is no fever or chills no headache or dizziness no chest pain no shortness of breath no cough no nausea or vomiting no abdominal pain no diarrhea and no urinary symptoms. On 08/27/2020 patient was seen and examined on the medical floor he is alert and oriented 3 in no distress he is still complaining of left lower extremity weakness otherwise he denies any complaints there is no fever or chills no headache or dizziness no chest pain no shortness of breath no cough no nausea or vomiting no abdominal pain no diarrhea no blood in the stools no burning with urination no frequency or urgency and no hematuria patient was evaluated by neurosurgery awaiting back brace at this time also awaiting neurology consultation in regard to subacute stroke, patient hemoglobin is down to 7.1 will reconsult gastroenterology will give 1 dose of IV iron today Will continue to monitor Objective - Vital Signs Vital signs: Vital Signs Temp 98.0 F 08/27/20 04:40 Pulse 94 08/27/20 04:40 Resp 20 08/27/20 04:40 BP 150/65 08/27/20 04:40 Pulse Ox 96 08/27/20 04:40 Intake & Output 08/26/20 08/27/20 08/27/20 18:59 06:59 18:59 Intake Total 180 Balance 180 Weight 51.71 kg Intake: Intake, IV Titration 180 Amount Sodium Chloride 0.9% 1, 180 000 ml @ 20 mls/hr IV . Q24H [facility] Rx#:[id number] Other: Voiding Method Bedpan Urinal Urinal # Voids 4 # Bowel Movements 0 - Exam In general patient is alert and oriented 3 in no apparent distress HEENT head normocephalic and atraumatic Neck is supple no JVD no goiter no lymphadenopathy Chest exam reveals a few scattered rhonchi no wheezing Cardiac exam reveals regular heart sounds S1 and S2 no gallops no murmurs Abdomen is soft nontender no organomegaly with normal bowel sounds Extremity exam reveals no edema no cyanosis or clubbing Neurological examination reveals, mild weakness in the left lower extremity as compared to the right otherwise no significant findings - Labs CBC & Chem 7: 08/27/20 05:15 08/27/20 05:15 Labs: Abnormal Lab Results - Last 24 Hours (Table) 08/26/20 08/27/20 Range/Units 06:04 05:15 RBC 2.46 L (4.30-5.90) m/uL Hgb 7.1 L (13.0-17.5) gm/dL Hct 22.1 L (39.0-53.0) % RDW 15.7 H (11.5-15.5) % Plt Count 113 L (150-450) k/uL Lymphocytes # 0.6 L (1.0-4.8) k/uL Est GFR (CKD-EPI)AfAm 47.8 L (60.0-200.0) Est GFR (CKD-EPI)NonAf 41.3 L (60.0-200.0) Calcium 8.6 L (8.7-10.3) mg/dL ALT <8 L (10-49) U/L Total Protein 5.1 L (6.2-8.2) g/dL Albumin 3.40 L (3.80-4.90) g/dL Assessment and Plan Plan: 1. Left lower extremity weakness with multiple falls 2. 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 Evidence of multiple lumbar compression vertebral fractures on MRI 4. Underlying history of hypertension 5. Underlying history of hyperlipidemia 6. Underlying history of coronary artery disease with history of coronary artery bypass graft surgery 7. Underlying history of valve replacement 8. Underlying history of pulmonary hypertension 9. Anemia with recent EGD done at [facility] At this time patient is transferred to [facility] Neurology consultation was requested in regard to subacute infarct on brain MRI and neurosurgery consultation was requested in regard to multiple lumbar vertebral fractures Will continue to monitor hemoglobin closely Will follow during this admission Prognosis is guarded due to advanced age and multiple medical problems
[2020-08-27] MEDS: ATORVASTATIN 20 MG TAB PO SCH (21:03)
[2020-08-27] MEDS: SODIUM CHLORIDE 0.9% 1,000 ML IV SCH (21:07)
[2020-08-27 21:11] LABS: Hemoglobin A1C 4.9 % (4.0-6.0)
[2020-08-28 06:19] LABS: Basophils % (A) 0 %; Eosinophils # (A) 0.2 k/uL (0-0.7); Eosinophils % (A) 3 %; HCT 22.4 % (39.0-53.0); HGB 7.3 gm/dL (13.0-17.5); Hypochromasia Slight; Lymphocytes # (A) 0.7 k/uL (1.0-4.8); Lymphocytes % (A) 12 %; MCH 29.6 pg (25.0-35.0); MCHC 32.8 g/dL (31.0-37.0); MCV 90.3 fL (80.0-100.0); Mean Platelet Volume 8.5; Monocytes # (A) 0.5 k/uL (0-1.0); Monocytes % (A) 9 %; Neutrophils # (A) 4.2 k/uL (1.3-7.7); Neutrophils % (A) 72 %; Platelet Count 135 k/uL (150-450); Poikilocytosis Slight; RBC 2.48 m/uL (4.30-5.90); RDW 15.7 % (11.5-15.5); WBC 5.8 k/uL (3.8-10.6)
--- NOTE | 2020-08-28 08:52 | CDI ---
Documentation Clarification Form Date: 08/28/2020 08:20:14 AM From: Jossy Beltre RN CCDS Admit Date: 08/25/2020 05:17:00 PM Patient Name: Fitz Hurtado Visit Number: [id number] Discharge Date: ATTENTION: The Clinical Documentation Specialists (CDI) and [facility] Coding Staff appreciate your assistance in clarifying documentation. Please respond to the clarification below the line at the bottom and electronically sign. The CDI & [facility] Coding staff will review the response and follow-up if needed. Please note: Queries are made part of the Legal Health Record. If you have any questions, please contact the author of this message via ITS. Dr. Margaret Boss Underweight, moderate clavicle and temporal muscle wasting, is documented in the Nutritional Assessment 08/26 History/Risk Factors: 89-year-old male presents as a transfer from [facility] to [facility] for evaluation of possible subacute infarct. Medical history: Pulmonary HTN, Lung cancer, CAD and COPD. Clinical Indicators: Admitting Diagnosis: Multiple lumbar compression vertebral fractures and evidence of subacute infarct on MRI. Nutritional Assessment 08/26: Appetite poor 1-2 weeks. BMI 16.8. Weight loss over two months. 08/26 Labs: Hgb 7.5, Ca 8.6, Na 151, K 3.8 Physical Findings: Underweight. Moderate clavicle and temporal muscle wasting. Nutritional Diagnosis Unintended weight loss. Related to decreased intake and constipation &.7.3kg weight loss in two months. Treatment: Regular diet. Megace 400mg PO BID. Monitoring supplement intake and PO intake. Dietary Consult: See above Nutritional assessment Supplements: Ensure Compact TID In your professional opinion, can you please clarify if these findings signify one of the following conditions? Mild Protein-Calorie Malnutrition Moderate Protein-Calorie Malnutrition Severe Protein-Calorie Malnutrition Other condition, please specify Unable to determine (Last Revision: January 2019) moderate protein calorie malnutrition MTDD
[2020-08-28] MEDS: CLOPIDOGREL 75 MG TAB PO SCH (09:11)
[2020-08-28] MEDS: FOLIC ACID 1 MG TAB PO SCH (09:11)
[2020-08-28] MEDS: PANTOPRAZOLE 40 MG TABLET PO SCH (09:11)
[2020-08-28] MEDS: MEGESTROL 400 MG/10 ML CUP PO SCH ×2 (09:12→20:32)
[2020-08-28] MEDS: METOPROLOL TARTRATE 25 MG TAB PO SCH ×3 (09:12→21:25)
[2020-08-28] MEDS: FUROSEMIDE 20 MG TAB PO SCH (09:12)
[2020-08-28] MEDS: LOSARTAN 25 MG TAB PO SCH (09:12)
[2020-08-28] MEDS: SODIUM BICARBONATE TAB 650 MG TAB PO SCH ×2 (09:13→20:32)
[2020-08-28] MEDS ORDERED: SENNOSIDES 8.6 MG TAB PO PRN (09:58)
[2020-08-28 10:07] LABS: African American GFR (CKD) 47.8 (60.0-200.0); Albumin 3.4 g/dL (3.80-4.90); Albumin/Globulin Ratio 1.89 (1.60-3.17); Anion Gap 10.4 mmol/L (4.00-12.00); Calcium 8.5 mg/dL (8.7-10.3); Carbon Dioxide 23.6 mmol/L (21.6-31.8); Globulin 1.8 g/dL (1.6-3.3); Non-African American GFR(CKD) 41.3 (60.0-200.0); Potassium 3.9 mmol/L (3.5-5.5); Total Bilirubin 0.3 mg/dL (0.2-1.2); Total Protein 5.2 g/dL (6.2-8.2)
[2020-08-28] MEDS ORDERED: SODIUM FERRIC GLUCONAT-SUCROSE 125 MG in SODIUM CHLORIDE 0.9% 100 ML IVPB ONE (10:45)
--- NOTE | 2020-08-28 11:48 | P.PN ---
Progress Note - Text Progress Note Date: 08/27/20 Orthopedic spine: History of present illness: Patient is a pleasant 89-year-old male who is seen at the bedside for follow evaluation for his lumbar spine. Patient was transferred from [facility] for further evaluation with neurology after imaging showed evidence of infarct found on brain MRI. Patient states he was recently experiencing weakness on the whole left side of his body. He is able to perform some active range of motion with left lower extremity but has difficulty with dorsiflexion and extensor hallucis longus. He is globally weaker with the left upper extremity as compared to the right. He states he did sustain a fall approximately 1 week ago. He was not previously diagnosed with any lumbar compression fractures. He states at the bedside is not currently experiencing any significant back pain. His back pain is not exacerbated with coughing or sneezing. He is urinating without difficulty. He has been able to eat at the bedside without difficulty. Patient has been seen by neurology today. He continues to be seen by medicine. Documentation from medicine states patient had presented to [facility] emergency room approximately one week ago with left lower extremity weakness and CT imaging of the brain was negative at that time. He was seen by tele-neurology who recommended MRI imaging of the brain, cervical spine, lumbar spine. Lumbar MRI imaging showed multiple lumbar compression fracture deformities. MRI of the brain revealed possible subacute infarct and he was hence transferred to [facility] for neurology consultation. Patient's past medical history includes coronary artery disease with history of bypass graft, history of valve replacement, pulmonary hypertension, hypertension, hyperlipidemia, gout, and anemia. Prior to being seen and examined at the bedside a prescription for an LSO brace was ordered and provided the case management. Nursing states case management is trying to obtain his brace today. Physical exam: Patient is awake, alert, and oriented 3 Vital signs stable Good chest excursion with deep inspiration and expiration Examination of lumbar spine reveals skin is intact with no abrasions, aspirations, or bruises; no erythema, purulence or signs of infection No pain palpation of the lumbar spine Dorsiflexion, plantarflexion, and extensor hallucis longus positive sustained on the right Left lower extremity weakness with dorsiflexion at 3/5 Left lower extremity weakness with extensor hallucis longus at 0/5 Lower extremity strength 5/5 bilaterally Patellar reflex 1/4 on the right and 3/4 on the left Straight leg test negative bilateral lower extremities Negative Lasegue's test bilaterally No signs or symptoms of DVT; no calf pain No pain with internal and external rotation of the hips bilaterally Neurovascularly intact Pertinent studies: MRI of the lumbar spine taken on 08/24/2020 at [facility]: L2-3 disc bulge and facet arthropathy; L3-4 and L4-5 disc protrusion and facet arthropathic with mild to moderate central canal stenosis and bilateral neural foraminal narrowing; L3 and L4 disc protrusion and facet arthropathic resulting in moderate moderate central canal stenosis and bilateral neural foraminal narrowing; L3 and L4 which in compression fracture deformities that appear chronic in nature; L5 acute to subacute compression fracture deformity at the superior endplate Assessment: Acute left-sided weakness of the left upper extremity and left lower extremity Significant weakness with dorsiflexion and extensor hallucis longus on the left L5 acute to subacute compression fracture deformity L3 and L4 chronic compression fracture deformities L3-4 and L4-5 mild to moderate central canal stenosis Lumbar facet spondylosis Status post fall 1 week ago Acute to subacute stroke in the right thalamus extending into the internal capsule, possible lacunar History of coronary artery disease with bypass graft History of valve replacement Pulmonary hypertension Hypertension Hyperlipidemia History of gout History of anemia Plan: 1. Patient has been discussed in detail with Dr. Efrain Gabriel. I have attempted to review imaging but is not been yet available to review in the synapse. MRI imaging has been reviewed by myself and Dr. Efrain Gabriel. Patient has had evidence of multiple compression fracture deformities at L3, L4, L5. L5 compression fracture deformity appears to be acute to subacute nature. Compression fracture deformity L3 and L4 appear to be chronic. Patient did sustain a fall approximately 1 week ago and states he has not had previously been diagnosed with compression fracture deformities. At this time we'll plan for conservative treatment. Given his recent diagnosis of fractures and history of recent fall, we'll plan for bracing. A prescription has been written and provided to case management for an LSO brace. Once this brace is delivered and fitted appropriately, patient should wear this brace while sitting upright at greater than 45, during increase activities, during ambulation. Brace is not have to or while lying in bed or while bathing. Following fitting of this brace, patient is clear for discharge from an orthopedic spine standpoint. Following discharge, patient may follow-up with Piotr Montiel PA-C or Dr. Efrain Gabriel at [facility] in approximately 2-3 weeks for further evaluation. We did discuss his left upper extremity and lower extremity weakness with the patient and feel that this is due to his recent diagnosis of acute to subacute stroke at the right thalamus extending into the internal capsule, possible lacunar. We recommend him continuing with further evaluation with neurology. 2. Neurology is diagnosed the patient with acute to subacute stroke at the right thalamus extending into the internal capsule, possible lacunar. Considering his ongoing left upper extremity and lower extremity weakness that c orrealtes well with his stroke diagnosis, we'll plan for the patient continue following with neurology for further treatment and evaluation. 3. Patient will continue be seen exam by medicine for his other medical diagnoses
[2020-08-28] MEDS: IPRATROPIUM-ALBUTEROL 3 ML NEB INHALATION PRN ×2 (11:49→21:00)
[2020-08-28] MEDS: BUDESONIDE 0.5 MG/2 ML NEBU INHALATION SCH ×2 (11:49→21:00)
--- NOTE | 2020-08-28 14:43 | P.GSCN ---
History of Present Illness History of present illness: 89-year-old -[place] male patient came to [facility] with history of fall at home from his bed complaining also of some weakness and left the lower extremity and upper extremity. With the recovery patient had a complete stroke workup computed tomography scan of the brain shows no intracranial bleed or hemorrhage MRI showed a subacute the thalamic stroke would be N infarct could be embolic. Patient also has a compression fracture of the L3 L4 L5 patient also has a history of coronary artery disease post coronary artery bypass graft, history of valve replacement, history of pulmonary hypertension, Personal history history of smoking Patient was seen in the room is laying comfortably in bed patient has a mild weakness on the left extremity and is improving( Chest is clear few crackles the lung bases Abdomen is soft nontender Center system or in time and place patient has a slight weakness on the left approximately right side no weakness noted Ultrasound of the carotid shows 5060% stenosis noted bilaterally mostly involving the bulb of the both carotid arteries patient is on aspirin culture which will be continued I will discuss with the Dr. Dixon and neurology follow with you Past Medical History Past Medical History: Coronary Artery Disease (CAD), Cancer, COPD, GI Bleed, Osteoarthritis (OA), Seizure Disorder Additional Past Medical History / Comment(s): lung ca, anemia, seizures 20 years ago History of Any Multi-Drug Resistant Organisms: None Reported Past Surgical History: Coronary Bypass/CABG Past Anesthesia/Blood Transfusion Reactions: No Reported Reaction Past Psychological History: No Psychological Hx Reported Smoking Status: Former smoker Past Alcohol Use History: Rare Past Drug Use History: None Reported - Past Family History Father Family Medical History: Cancer Additional Family Medical History / Comment(s): lung cancer Sister(s) Family Medical History: Cancer Medications and Allergies Home Medications Medication Instructions Recorded Confirmed Type Aspirin EC [Ecotrin Low Dose] 81 mg PO HS 01/13/18 08/25/20 History Metoprolol Tartrate [Lopressor] 25 mg PO TID 01/13/18 08/25/20 History Budesonide [Pulmicort] 0.5 mg INHALATION RT-BID 08/25/20 08/25/20 History Folic Acid 1 mg PO DAILY 08/25/20 08/25/20 History Furosemide [Lasix] 20 mg PO DAILY 08/25/20 08/25/20 History Ipratropium-Albuterol Nebulize 3 ml INHALATION RT-Q6H PRN 08/25/20 08/25/20 History [Duoneb 0.5 mg-3 mg/3 ml Soln] Losartan Potassium [Cozaar] 25 mg PO DAILY 08/25/20 08/25/20 History Megestrol [Megace] 400 mg PO BID 08/25/20 08/25/20 History Simvastatin [Zocor] 40 mg PO HS 08/25/20 08/25/20 History Sodium Bicarbonate Tab 650 mg PO BID 08/25/20 08/25/20 History Zolpidem [Ambien] 10 mg PO HS PRN 08/25/20 08/25/20 History Allergies Allergy/AdvReac Type Severity Reaction Status Date / Time No Known Allergies Allergy Verified 08/25/20 18:11 Surgical - Exam Vital Signs Temp Pulse Resp BP Pulse Ox 97.9 F 116 H 16 154/81 95 08/25/20 17:29 08/25/20 17:29 08/25/20 17:29 08/25/20 17:29 08/25/20 17:29 Results - Labs 08/28/20 05:49 08/28/20 05:49 Abnormal Lab Results - Last 24 Hours (Table) 08/28/20 08/28/20 Range/Units 05:49 05:49 RBC 2.48 L (4.30-5.90) m/uL Hgb 7.3 L (13.0-17.5) gm/dL Hct 22.4 L (39.0-53.0) % RDW 15.7 H (11.5-15.5) % Plt Count 135 L (150-450) k/uL Lymphocytes # 0.7 L (1.0-4.8) k/uL Est GFR (CKD-EPI)AfAm 47.8 L (60.0-200.0) Est GFR (CKD-EPI)NonAf 41.3 L (60.0-200.0) Calcium 8.5 L (8.7-10.3) mg/dL ALT 8 L (10-49) U/L Total Protein 5.2 L (6.2-8.2) g/dL Albumin 3.40 L (3.80-4.90) g/dL Diabetes panel 08/27/20 08/28/20 Range/Units 05:15 05:49 Sodium 143 (135-145) mmol/L Potassium 3.9 (3.5-5.5) mmol/L Chloride 109 (96-109) mmol/L Carbon Dioxide 23.6 (21.6-31.8) mmol/L BUN 27.0 (9.0-27.0) mg/dL Creatinine 1.5 (0.6-1.5) mg/dL Glucose 110 (70-110) mg/dL Hemoglobin A1c 4.9 (4.0-6.0) % Calcium 8.5 L (8.7-10.3) mg/dL AST 21 (14-35) U/L ALT 8 L (10-49) U/L Alkaline Phosphatase 53 (41-126) U/L Total Protein 5.2 L (6.2-8.2) g/dL Albumin 3.40 L (3.80-4.90) g/dL Calcium panel 08/28/20 Range/Units 05:49 Calcium 8.5 L (8.7-10.3) mg/dL Albumin 3.40 L (3.80-4.90) g/dL Pituitary panel 08/28/20 Range/Units 05:49 Sodium 143 (135-145) mmol/L Potassium 3.9 (3.5-5.5) mmol/L Chloride 109 (96-109) mmol/L Carbon Dioxide 23.6 (21.6-31.8) mmol/L BUN 27.0 (9.0-27.0) mg/dL Creatinine 1.5 (0.6-1.5) mg/dL Glucose 110 (70-110) mg/dL Calcium 8.5 L (8.7-10.3) mg/dL Adrenal panel 08/28/20 Range/Units 05:49 Sodium 143 (135-145) mmol/L Potassium 3.9 (3.5-5.5) mmol/L Chloride 109 (96-109) mmol/L Carbon Dioxide 23.6 (21.6-31.8) mmol/L BUN 27.0 (9.0-27.0) mg/dL Creatinine 1.5 (0.6-1.5) mg/dL Glucose 110 (70-110) mg/dL Calcium 8.5 L (8.7-10.3) mg/dL Total Bilirubin 0.3 (0.2-1.2) mg/dL AST 21 (14-35) U/L ALT 8 L (10-49) U/L Alkaline Phosphatase 53 (41-126) U/L Total Protein 5.2 L (6.2-8.2) g/dL Albumin 3.40 L (3.80-4.90) g/dL
--- NOTE | 2020-08-28 16:44 | P.PN ---
Subjective Progress Note Date: 08/28/20 Patient was seen for a follow-up. Patient states he is doing much better. His left arm and left leg both getting better. No new symptoms. Denies headache. Objective - Vital Signs Vital signs: Vital Signs Temp 91.0 F L 08/28/20 12:37 Pulse 80 08/28/20 12:37 Resp 20 08/28/20 12:37 BP 128/68 08/28/20 12:37 Pulse Ox 99 08/28/20 12:37 Intake & Output 08/27/20 08/28/20 08/28/20 18:59 06:59 18:59 Intake Total 320 160 Balance 320 160 Intake: Intake, IV Titration 320 160 Amount Sodium Chloride 0.9% 1, 220 160 000 ml @ 20 mls/hr IV . Q24H [facility] Rx#:[id number] Sodium Ferric Gluconat- 100 Sucrose 125 mg In Sodium Chloride 0.9% 100 ml @ 100 mls/hr IVPB ONCE ONE Rx#:[id number] Other: Voiding Method Urinal Urinal Bedside Commode Urinal - Exam On examination patient's mental status, speech and language functions are normal. Cranial nerves II through XII are normal. On muscle strength testing the strength is normal in the right arm and right leg. On the left side, his deltoid is 5-, biceps and triceps are normal. [employer] is almost as good as the right side. Patient's left ankle dorsiflexion is 3+, hip flexion is normal. Sensations are equal with no neglect on double simultaneous depression. Patient continues to be at least moderately ataxic for [id number] and [id number]-fh-[id number] testing on the left side. Bulk of muscles is overall decreased. Gait deferred. - Labs CBC & Chem 7: 08/28/20 05:49 08/28/20 05:49 Labs: Abnormal Lab Results - Last 24 Hours (Table) 08/28/20 08/28/20 08/28/20 Range/Units 05:49 05:49 05:49 RBC 2.48 L (4.30-5.90) m/uL Hgb 7.3 L (13.0-17.5) gm/dL Hct 22.4 L (39.0-53.0) % RDW 15.7 H (11.5-15.5) % Plt Count 135 L (150-450) k/uL Lymphocytes # 0.7 L (1.0-4.8) k/uL Est GFR (CKD-EPI)AfAm 47.8 L (60.0-200.0) Est GFR (CKD-EPI)NonAf 41.3 L (60.0-200.0) Calcium 8.5 L (8.7-10.3) mg/dL Ferritin 1622.6 H (22.0-322.0) ng/mL ALT 8 L (10-49) U/L Total Protein 5.2 L (6.2-8.2) g/dL Albumin 3.40 L (3.80-4.90) g/dL Assessment and Plan Assessment: * Acute to subacute stroke right thalamus extending to internal capsule, possible lacunar, although artery to artery embolic stroke also a possibility. * Moderate bilateral ICA stenosis 50-70%. * Status post fall with multiple compression fractures in the lumbar spine. * Hypertension * X tobacco use * Cervical spondylosis, rule out spinal stenosis. MRI cervical spine poor quality. Plan: * Patient had a subacute stroke right thalamus/internal capsule. Patient was on aspirin 81 mg daily. We will switch from aspirin to Plavix 75 mg daily. Patient's strength has much improved as compared to yesterday. Continue Plavix. * Continue Protonix 40 mg daily for gastric ulcer prophylaxis. * Hemoglobin A1c 4.9. * Cholesterol 119, LDL 50, HDL 57 and triglycerides 59. Continue Zocor 40 mg daily. * Carotid Doppler from 08/18/2020 (report somewhat difficult to interpret). It reports 16-49% irregular heterogenous/smooth plaque. Minimal spectral broadening noted of bilateral common carotid arteries and bilateral external carotid arteries. Bilateral bulbs demonstrate calcified plaque with greater than 50% stenosis. 50-79% irregular heterogenous calcified plaque noted. Moderate spectral broadening of the bilateral ICAs. * 2-D echo showed normal left ventricular size. Moderate concentric LVH. Left- ventricular ejection fraction 55-60%. No pericardial effusion. No evidence of shunt was identified. * Vascular surgical input appreciated. Patient is doing much better. No indication for CEA at this time. May follow up with vascular surgery as an outpatient. Neurologically clear for discharge to appropriate facility.
--- NOTE | 2020-08-28 18:02 | P.PN ---
Subjective Progress Note Date: 08/28/20 Fitz Blue, is an 89-year-old male who presented to [facility] emergency room a week ago with a chief complaint of left lower extremity weakness computed tomography scan of the brain without contrast was done in the emergency room and did not reveal any acute abnormality patient was seen by tele-neurology and they advised to have an MRI of the brain and cervical spine and lumbar spine, MRI was done and revealed evidence of multiple lumbar vertebral fractures, MRI of the brain also revealed possible subacute infarct, patient was transferred to [facility] to be evaluated by neurology and neurosurgery. During his stay at this [facility] patient had anemia he was evaluated by gastroenterology and had an EGD that revealed evidence of gastritis and esophagitis. His past medical history is significant for history of coronary artery disease with history of coronary artery bypass graft surgery, history of valve replacement, history of pulmonary hypertension, history of hypertension, history of hyperlipidemia, history of gout and history of anemia. On review of systems patient is alert and oriented 3 in no distress he is still complaining of weakness in the left lower extremity difficulty walking otherwise he denies any complaints at this time there is no fever or chills no headache or dizziness no chest pain no shortness of breath no cough no nausea or vomiting no abdominal pain no diarrhea and no urinary symptoms. On 08/27/2020 patient was seen and examined on the medical floor he is alert and oriented 3 in no distress he is still complaining of left lower extremity weakness otherwise he denies any complaints there is no fever or chills no headache or dizziness no chest pain no shortness of breath no cough no nausea or vomiting no abdominal pain no diarrhea no blood in the stools no burning with urination no frequency or urgency and no hematuria patient was evaluated by neurosurgery awaiting back brace at this time also awaiting neurology consultation in regard to subacute stroke, patient hemoglobin is down to 7.1 will reconsult gastroenterology will give 1 dose of IV iron today Will continue to monitor On 08/28/2020 patient was seen and examined on the medical floor he is alert and oriented 3 in no distress he reports some improvement in the weakness in the left lower extremity otherwise he denies any complaints there is no fever or chills no headache or dizziness no chest pain no shortness of breath no cough no nausea or vomiting no abdominal pain no diarrhea and no urinary symptoms. At this time no further intervention is recommended by consultants including neurology, vascular surgery, patient still has significant anemia hemoglobin is 7.3 Will continue to give IV iron Will consult Dr. Harley for possible rehab admission Objective - Vital Signs Vital signs: Vital Signs Temp 98.3 F 08/28/20 05:00 Pulse 98 08/28/20 05:00 Resp 18 08/28/20 05:00 BP 158/84 08/28/20 05:00 Pulse Ox 98 08/28/20 05:00 Intake & Output 08/27/20 08/28/20 08/28/20 18:59 06:59 18:59 Intake Total 320 160 Balance 320 160 Intake: Intake, IV Titration 320 160 Amount Sodium Chloride 0.9% 1, 220 160 000 ml @ 20 mls/hr IV . Q24H [facility] Rx#:[id number] Sodium Ferric Gluconat- 100 Sucrose 125 mg In Sodium Chloride 0.9% 100 ml @ 100 mls/hr IVPB ONCE ONE Rx#:[id number] Other: Voiding Method Urinal Urinal Urinal - Exam In general patient is alert and oriented 3 in no apparent distress HEENT head normocephalic and atraumatic Neck is supple no JVD no goiter no lymphadenopathy Chest exam reveals a few scattered rhonchi no wheezing Cardiac exam reveals regular heart sounds S1 and S2 no gallops no murmurs Abdomen is soft nontender no organomegaly with normal bowel sounds Extremity exam reveals no edema no cyanosis or clubbing Neurological examination reveals, mild weakness in the left lower extremity as compared to the right otherwise no significant findings - Labs CBC & Chem 7: 08/28/20 05:49 08/28/20 05:49 Labs: Abnormal Lab Results - Last 24 Hours (Table) 08/27/20 08/28/20 08/28/20 Range/Units 05:15 05:49 05:49 RBC 2.48 L (4.30-5.90) m/uL Hgb 7.3 L (13.0-17.5) gm/dL Hct 22.4 L (39.0-53.0) % RDW 15.7 H (11.5-15.5) % Plt Count 135 L (150-450) k/uL Lymphocytes # 0.7 L (1.0-4.8) k/uL Est GFR (CKD-EPI)AfAm 47.8 L (60.0-200.0) Est GFR (CKD-EPI)NonAf 41.3 L (60.0-200.0) Calcium 8.5 L (8.7-10.3) mg/dL Iron 22 L (65-175) ug/dL TIBC 199 L (228-460) ug/dL % Saturation 11.06 L (15.00-50.00) ALT 8 L (10-49) U/L Total Protein 5.2 L (6.2-8.2) g/dL Albumin 3.40 L (3.80-4.90) g/dL Assessment and Plan Plan: 1. Left lower extremity weakness with multiple falls 2. 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 Evidence of multiple lumbar compression vertebral fractures on MRI 4. Underlying history of hypertension 5. Underlying history of hyperlipidemia 6. Underlying history of coronary artery disease with history of coronary artery bypass graft surgery 7. Underlying history of valve replacement 8. Underlying history of pulmonary hypertension 9. Anemia with recent EGD done at [facility] At this time patient is transferred to [facility] Neurology consultation was requested in regard to subacute infarct on brain MRI and neurosurgery consultation was requested in regard to multiple lumbar vertebral fractures Will continue to monitor hemoglobin closely Will follow during this admission Prognosis is guarded due to advanced age and multiple medical problems
[2020-08-28] MEDS: ATORVASTATIN 20 MG TAB PO SCH (20:32)
[2020-08-28] MEDS ORDERED: ZOLPIDEM 5 MG TAB PO PRN (23:10)
--- NOTE | 2020-08-29 01:05 | P.CONS ---
History of Present Illness - Reason for Consult Consult date: 08/28/20 Anemia Requesting physician: Margaret Boss - Chief Complaint Neurology evaluation, lower extremity weakness - History of Present Illness 89-year-old male with multiple medical comorbidities including coronary artery disease, pulmonary hypertension, hypertension, hyperlipidemia, gout and anemia who was transferred from [facility] for further evaluation by the neurology service. Initially he had presented to the hospital with complaints of lower extremity weakness. At that time the gastroenterology service was consult to see the patient due to anemia. Patient's anemia was felt to be multifactorial and secondary to chronic disease in the setting of chronic kidney disease. He stated he previously had EGD and colonoscopy within the past few years. He underwent an EGD in evaluation of his anemia at [facility] on 08/21/2020 with findings of a small hiatal hernia, gastritis and LA grade B esophagitis. Currently the patient is seen lying in bed denying any signs or symptoms of GI bleed. No abdominal pain at this time. Review of Systems REVIEW OF SYSTEMS: CONSTITUTIONAL: Denies any fevers, chills, weight change or fatigue. CARDIOVASCULAR: Denies any chest pain, palpitations high or low blood pressures RESPIRATORY: Denies any shortness of breath, hemoptysis or cough. GENITOURINARY: No dysuria or hematuria, history of chronic kidney disease. MUSCULOSKELETAL: Lower extremity weakness. SKIN: Denies any new rashes or lesions, jaundice or pallor. PSYCHIATRIC: Denies any depression or anxiety. NEUROLOGY: Denies headache, denies any new focal deficits. EARS/NOSE/THROAT: No recent hearing change, congestion, nasal discharge or sore throat. EYES: No pain in eyes, discharge or change in vision. GASTROINTESTINAL: As per HPI. Past Medical History Past Medical History: Coronary Artery Disease (CAD), Cancer, COPD, GI Bleed, Osteoarthritis (OA), Seizure Disorder Additional Past Medical History / Comment(s): lung ca, anemia, seizures 20 years ago History of Any Multi-Drug Resistant Organisms: None Reported Past Surgical History: Coronary Bypass/CABG Past Anesthesia/Blood Transfusion Reactions: No Reported Reaction Past Psychological History: No Psychological Hx Reported Smoking Status: Former smoker Past Alcohol Use History: Rare Past Drug Use History: None Reported - Past Family History Father Family Medical History: Cancer Additional Family Medical History / Comment(s): lung cancer Sister(s) Family Medical History: Cancer Medications and Allergies Home Medications Medication Instructions Recorded Confirmed Type Aspirin EC [Ecotrin Low Dose] 81 mg PO HS 01/13/18 08/25/20 History Metoprolol Tartrate [Lopressor] 25 mg PO TID 01/13/18 08/25/20 History Budesonide [Pulmicort] 0.5 mg INHALATION RT-BID 08/25/20 08/25/20 History Folic Acid 1 mg PO DAILY 08/25/20 08/25/20 History Furosemide [Lasix] 20 mg PO DAILY 08/25/20 08/25/20 History Ipratropium-Albuterol Nebulize 3 ml INHALATION RT-Q6H PRN 08/25/20 08/25/20 History [Duoneb 0.5 mg-3 mg/3 ml Soln] Losartan Potassium [Cozaar] 25 mg PO DAILY 08/25/20 08/25/20 History Megestrol [Megace] 400 mg PO BID 08/25/20 08/25/20 History Simvastatin [Zocor] 40 mg PO HS 08/25/20 08/25/20 History Sodium Bicarbonate Tab 650 mg PO BID 08/25/20 08/25/20 History Zolpidem [Ambien] 10 mg PO HS PRN 08/25/20 08/25/20 History Allergies Allergy/AdvReac Type Severity Reaction Status Date / Time No Known Allergies Allergy Verified 08/25/20 18:11 Physical Exam Vitals: Vital Signs Temp Pulse Pulse Resp BP Pulse Ox 08/28/20 12:37 91.0 F L 80 20 128/68 99 08/28/20 12:00 92 08/28/20 11:52 95 08/28/20 05:00 98.3 F 98 18 158/84 98 08/27/20 21:35 91 08/27/20 21:19 91 08/27/20 20:54 97.9 F 91 18 124/70 98 Intake and Output 08/27/20 08/28/20 08/28/20 22:59 06:59 14:59 Intake Total 320 160 Balance 320 160 Intake: Intake, IV Titration 320 160 Amount Sodium Chloride 0.9% 1, 220 160 000 ml @ 20 mls/hr IV . Q24H [facility] Rx#:[id number] Sodium Ferric Gluconat- 100 Sucrose 125 mg In Sodium Chloride 0.9% 100 ml @ 100 mls/hr IVPB ONCE ONE Rx#:[id number] Other: Voiding Method Urinal Urinal On physical examination, patient appears comfortable in no apparent distress. HEAD: Normocephalic, atraumatic. EYES: No scleral icterus. No conjunctival injection. MOUTH: No lesions, tongue midline. NECK: Trachea midline, no gross abnormalities. CHEST: Decreased air entry in all lung phillips. HEART: S1-S2 appreciated. ABDOMEN: Soft, obese. Bowel sounds are positive. No organomegaly. No guarding or rigidity. EXTREMITIES: Bilateral pedal edema. SKIN: No rashes, no jaundice. NEUROLOGIC: Alert and oriented to person and place. Results CBC & Chem 7: 08/28/20 05:49 08/28/20 05:49 Labs: Abnormal Lab Results - Last 24 Hours (Table) 08/28/20 08/28/20 Range/Units 05:49 05:49 RBC 2.48 L (4.30-5.90) m/uL Hgb 7.3 L (13.0-17.5) gm/dL Hct 22.4 L (39.0-53.0) % RDW 15.7 H (11.5-15.5) % Plt Count 135 L (150-450) k/uL Lymphocytes # 0.7 L (1.0-4.8) k/uL Est GFR (CKD-EPI)AfAm 47.8 L (60.0-200.0) Est GFR (CKD-EPI)NonAf 41.3 L (60.0-200.0) Calcium 8.5 L (8.7-10.3) mg/dL ALT 8 L (10-49) U/L Total Protein 5.2 L (6.2-8.2) g/dL Albumin 3.40 L (3.80-4.90) g/dL Assessment and Plan (1) Anemia, normocytic normochromic Narrative/Plan: 89-year-old male with multiple medical comorbidities transferred from [facility] where he presented with complaints of lower extremity weakness for evaluation by the neurology service. Patient was noted to have anemia on initial hospitalization, at that time he reported EGD and colonoscopy within the past few years which she believes were normal. He denied any signs or symptoms of GI bleeding. Anemia felt to be multifactorial and secondary to chronic disease with EGD performed in evaluation which was significant for a small hiatal hernia, mild gastritis and LA grade B esophagitis. Current Visit: Yes Status: Acute Code(s): D64.9 - ANEMIA, UNSPECIFIED SNOMED Code(s): 29525791 (2) Esophagitis Current Visit: Yes Status: Acute Code(s): K20.90 - ESOPHAGITIS, UNSPECIFIED WITHOUT BLEEDING SNOMED Code(s): 58127604 (3) Gastritis Current Visit: Yes Status: Acute Code(s): K29.70 - GASTRITIS, UNSPECIFIED, WITHOUT BLEEDING SNOMED Code(s): 7601325 (4) Hiatal hernia Current Visit: Yes Status: Acute Code(s): K44.9 - DIAPHRAGMATIC HERNIA WITHOUT OBSTRUCTION OR GANGRENE SNOMED Code(s): 93200673 Plan: Supportive care Okay for diet as tolerated Continue to monitor hemoglobin and hematocrit and transfuse as needed Continue to monitor for any signs or symptoms of GI blood loss Continue iron supplementation ordered by the primary team Continue daily Protonix therapy with findings of hiatal hernia, gastritis and esophagitis on EGD on 08/21/2020 at [facility] Thank you for allowing us to participate in the care of the patient
[2020-08-29] MEDS: SODIUM CHLORIDE 0.9% 1,000 ML IV SCH ×2 (01:25→21:20)
[2020-08-29] MEDS: METOPROLOL TARTRATE 25 MG TAB PO SCH ×3 (08:50→21:19)
[2020-08-29] MEDS: FUROSEMIDE 20 MG TAB PO SCH (08:51)
[2020-08-29] MEDS: PANTOPRAZOLE 40 MG TABLET PO SCH (08:51)
[2020-08-29] MEDS: FOLIC ACID 1 MG TAB PO SCH (08:51)
[2020-08-29] MEDS: LOSARTAN 25 MG TAB PO SCH (08:52)
[2020-08-29] MEDS: CLOPIDOGREL 75 MG TAB PO SCH (08:52)
[2020-08-29 09:02] LABS: Basophils % (A) 0 %; Eosinophils # (A) 0.2 k/uL (0-0.7); Eosinophils % (A) 2 %; HCT 24.2 % (39.0-53.0); Hypochromasia Slight; Lymphocytes % (A) 13 %; MCH 29.7 pg (25.0-35.0); MCV 89.8 fL (80.0-100.0); Mean Platelet Volume 8.1; Monocytes # (A) 0.6 k/uL (0-1.0); Monocytes % (A) 7 %; Neutrophils # (A) 5.6 k/uL (1.3-7.7); Neutrophils % (A) 73 %; Platelet Count 178 k/uL (150-450); Poikilocytosis Slight; RBC 2.69 m/uL (4.30-5.90); WBC 7.8 k/uL (3.8-10.6)
[2020-08-29] MEDS: BUDESONIDE 0.5 MG/2 ML NEBU INHALATION SCH ×2 (09:07→20:23)
[2020-08-29] MEDS: IPRATROPIUM-ALBUTEROL 3 ML NEB INHALATION PRN ×3 (09:07→20:23)
[2020-08-29] MEDS: MEGESTROL 400 MG/10 ML CUP PO SCH ×2 (09:40→21:20)
[2020-08-29] MEDS: SODIUM BICARBONATE TAB 650 MG TAB PO SCH ×2 (09:40→21:20)
[2020-08-29] MEDS ORDERED: SODIUM FERRIC GLUCONAT-SUCROSE 125 MG in SODIUM CHLORIDE 0.9% 100 ML IVPB ONE (10:00)
--- NOTE | 2020-08-29 10:56 | P.CONS ---
History of Present Illness - Chief Complaint Gait disturbance - History of Present Illness I had the opportunity to see patient for inpatient rehab consultation with regard to gait disturbance. He was admitted to [place] [address] as a transfer from [facility] where he was admitted with left leg weakness. Initial head CT with chronic changes only. Brain MRI with subacute infarct right thalamic S. Lumbar MRI with multiple lumbar fractures. Seen by orthopedics who planned LSO. Seen by neurology, Dr. Reyes who diagnosed subacute right thalamic infarct. Seen by vascular, Dr. Littlejohn. Patient started therapies. PT reports moderate assistance bed mobility, transfers, gait 6 feet with roller walker. OT reports minimal assistance for upper dressing and maximal assistance for bathing and moderate assistance for lower dressing, toileting and transfers. Previous functional history as elicited from patient: 89-year-old right-handed white male who is lives in one floor home alone. Retired. Describes her seizures Meals on Wheels. He describes that he is independent with sitdown shower and gait with roller walker. A friend drives. Unsure PMD but could be Dr. Boss. Denies tobacco or alcohol. Review of Systems Review of systems: ENT: Denies sneezes or discharge. Eyes: Denies discharge or photophobia. Cardiac: Denies chest pain or palpitation. Pulmonary: Denies cough or shortness of breath. Gastrointestinal: Denies nausea, emesis, constipation, diarrhea. Genitourinary: Denies discharge or frequency. Musculoskeletal: Denies muscle or bone aches. Neurologic: Patient demonstrates confusion and difficulty answering biographical questions. Endocrine: Denies shakes or sweats. Oncology: Denies cancers. Dermatologic: Denies rash, itching, pruritus. ALLERGY/immunology: Denies sneezes, rashes. Past Medical History Past Medical History: Coronary Artery Disease (CAD), Cancer, COPD, GI Bleed, Osteoarthritis (OA), Seizure Disorder Additional Past Medical History / Comment(s): lung ca, anemia, seizures 20 years ago History of Any Multi-Drug Resistant Organisms: None Reported Past Surgical History: Coronary Bypass/CABG Past Anesthesia/Blood Transfusion Reactions: No Reported Reaction Past Psychological History: No Psychological Hx Reported Smoking Status: Former smoker Past Alcohol Use History: Rare Past Drug Use History: None Reported - Past Family History Father Family Medical History: Cancer Additional Family Medical History / Comment(s): lung cancer Sister(s) Family Medical History: Cancer Medications and Allergies Home Medications Medication Instructions Recorded Confirmed Type Aspirin EC [Ecotrin Low Dose] 81 mg PO HS 01/13/18 08/25/20 History Metoprolol Tartrate [Lopressor] 25 mg PO TID 01/13/18 08/25/20 History Budesonide [Pulmicort] 0.5 mg INHALATION RT-BID 08/25/20 08/25/20 History Folic Acid 1 mg PO DAILY 08/25/20 08/25/20 History Furosemide [Lasix] 20 mg PO DAILY 08/25/20 08/25/20 History Ipratropium-Albuterol Nebulize 3 ml INHALATION RT-Q6H PRN 08/25/20 08/25/20 History [Duoneb 0.5 mg-3 mg/3 ml Soln] Losartan Potassium [Cozaar] 25 mg PO DAILY 08/25/20 08/25/20 History Megestrol [Megace] 400 mg PO BID 08/25/20 08/25/20 History Simvastatin [Zocor] 40 mg PO HS 08/25/20 08/25/20 History Sodium Bicarbonate Tab 650 mg PO BID 08/25/20 08/25/20 History Zolpidem [Ambien] 10 mg PO HS PRN 08/25/20 08/25/20 History Allergies Allergy/AdvReac Type Severity Reaction Status Date / Time No Known Allergies Allergy Verified 08/25/20 18:11 Physical Exam Vitals: Vital Signs Temp Pulse Pulse Resp BP Pulse Ox 08/29/20 10:12 98.0 F 95 16 152/70 97 08/29/20 09:23 92 08/29/20 09:08 88 08/29/20 05:00 98.1 F 88 20 174/62 99 08/28/20 21:17 95 08/28/20 21:00 95 08/28/20 20:15 98.5 F 95 20 148/67 98 08/28/20 18:36 98.9 F 08/28/20 12:37 91.0 F L 80 20 128/68 99 08/28/20 12:00 92 08/28/20 11:52 95 Intake and Output 08/28/20 08/29/20 08/29/20 22:59 06:59 14:59 Intake Total 160 200 Output Total 300 Balance -140 200 Intake: Intake, IV Titration 160 Amount Sodium Chloride 0.9% 1, 160 000 ml @ 20 mls/hr IV . Q24H [facility] Rx#:[id number] Oral 200 Output: Urine 300 Other: Voiding Method Bedside Commode Urinal # Voids 1 # Bowel Movements 0 Skin: Atrophic, intact. General: Thin build and comfortable appearance. Head: Normocephalic, atraumatic. Eyes: Symmetric. Pupils equal round. Ears: Symmetric. Hearing within normal limits. Mouth: Clear. Neck: Supple. Carotid without bruit. Cardiac: Regular rate and rhythm. Lungs: Clear anteriorly and posteriorly. Abdomen: Soft active nontender. Extremities: Normal tone. Thin limbs. Neurological: Mental status: Confused and had some difficulty answering biographical questions. Cranial nerves: Symmetric facial tone and trapezius. Motor: Active movement all 4 limbs. Sensation: Intact throughout. DTRs: Symmetric and equal throughout. Mobility: Requires physical assist for bed mobility. Results CBC & Chem 7: 08/29/20 08:02 08/28/20 05:49 Labs: Abnormal Lab Results - Last 24 Hours (Table) 08/28/20 08/29/20 Range/Units 05:49 08:02 RBC 2.69 L (4.30-5.90) m/uL Hgb 8.0 L (13.0-17.5) gm/dL Hct 24.2 L (39.0-53.0) % RDW 16.0 H (11.5-15.5) % Ferritin 1622.6 H (22.0-322.0) ng/mL Assessment and Plan (1) Compression fx, lumbar spine Current Visit: Yes Status: Acute Code(s): S32.000A - WEDGE COMPRESSION FRACTURE OF UNSP LUMBAR VERTEBRA, INIT SNOMED Code(s): 755300289 (2) Weakness of left leg Current Visit: Yes Status: Acute Code(s): R29.898 - OTH SYMPTOMS AND SIGNS INVOLVING THE MUSCULOSKELETAL SYSTEM SNOMED Code(s): 599702479 Plan: Impression: 1. Gait disturbance due to subacute infarct right thalamic. 2. Multiple lumbar compression fractures. 3. Osteoarthritis. 4. COPD. 5. History of seizure disorder and GI bleed. Comments and plan: At this time PT and OT are ongoing. Both document some endurance issues and recommending subacute rehab thusly. I have added speech therapy for noted confusion. Must really verify/determine patient's premorbid functional abilities in any supports for possible discharge. Pending supports, may develop goals for possible inpatient rehab admission.
--- NOTE | 2020-08-29 12:27 | P.PN ---
Subjective Progress Note Date: 08/29/20 Fitz Blue, is an 89-year-old male who presented to [facility] emergency room a week ago with a chief complaint of left lower extremity weakness computed tomography scan of the brain without contrast was done in the emergency room and did not reveal any acute abnormality patient was seen by tele-neurology and they advised to have an MRI of the brain and cervical spine and lumbar spine, MRI was done and revealed evidence of multiple lumbar vertebral fractures, MRI of the brain also revealed possible subacute infarct, patient was transferred to [facility] to be evaluated by neurology and neurosurgery. During his stay at this [facility] patient had anemia he was evaluated by gastroenterology and had an EGD that revealed evidence of gastritis and esophagitis. His past medical history is significant for history of coronary artery disease with history of coronary artery bypass graft surgery, history of valve replacement, history of pulmonary hypertension, history of hypertension, history of hyperlipidemia, history of gout and history of anemia. On review of systems patient is alert and oriented 3 in no distress he is still complaining of weakness in the left lower extremity difficulty walking otherwise he denies any complaints at this time there is no fever or chills no headache or dizziness no chest pain no shortness of breath no cough no nausea or vomiting no abdominal pain no diarrhea and no urinary symptoms. On 08/27/2020 patient was seen and examined on the medical floor he is alert and oriented 3 in no distress he is still complaining of left lower extremity weakness otherwise he denies any complaints there is no fever or chills no headache or dizziness no chest pain no shortness of breath no cough no nausea or vomiting no abdominal pain no diarrhea no blood in the stools no burning with urination no frequency or urgency and no hematuria patient was evaluated by neurosurgery awaiting back brace at this time also awaiting neurology consultation in regard to subacute stroke, patient hemoglobin is down to 7.1 will reconsult gastroenterology will give 1 dose of IV iron today Will continue to monitor On 08/28/2020 patient was seen and examined on the medical floor he is alert and oriented 3 in no distress he reports some improvement in the weakness in the left lower extremity otherwise he denies any complaints there is no fever or chills no headache or dizziness no chest pain no shortness of breath no cough no nausea or vomiting no abdominal pain no diarrhea and no urinary symptoms. At this time no further intervention is recommended by consultants including neurology, vascular surgery, patient still has significant anemia hemoglobin is 7.3 Will continue to give IV iron Will consult Dr. Harley for possible rehab admission On 08/29/2020 patient is currently resting comfortably in bed. Patient denies any chest pain or shortness breath. Patient denies nausea vomiting or diarrhea. Patient denies any urinary burning or frequency. Dr. Harley has been consulted for possible inpatient rehab. Trying to determine discharge planning inpatient rehab versus ECF facility Objective - Vital Signs Vital signs: Vital Signs Temp 97.8 F 08/29/20 11:59 Pulse 110 H 08/29/20 11:59 Resp 16 08/29/20 11:59 BP 121/69 08/29/20 11:59 Pulse Ox 95 08/29/20 11:59 Intake & Output 08/28/20 08/29/20 08/29/20 18:59 06:59 18:59 Intake Total 160 200 Output Total 300 Balance -140 200 Intake: Intake, IV Titration 160 Amount Sodium Chloride 0.9% 1, 160 000 ml @ 20 mls/hr IV . Q24H [facility] Rx#:[id number] Oral 200 Output: Urine 300 Other: Voiding Method Bedside Commode Bedside Commode Urinal Urinal # Voids 5 1 # Bowel Movements 0 - Exam In general patient is alert and oriented 3 in no apparent distress HEENT head normocephalic and atraumatic Neck is supple no JVD no goiter no lymphadenopathy Chest exam reveals a few scattered rhonchi no wheezing Cardiac exam reveals regular heart sounds S1 and S2 no gallops no murmurs Abdomen is soft nontender no organomegaly with normal bowel sounds Extremity exam reveals no edema no cyanosis or clubbing Neurological examination reveals, mild weakness in the left lower extremity as compared to the right otherwise no significant findings - Labs CBC & Chem 7: 08/29/20 08:02 08/28/20 05:49 Labs: Abnormal Lab Results - Last 24 Hours (Table) 08/28/20 08/29/20 Range/Units 05:49 08:02 RBC 2.69 L (4.30-5.90) m/uL Hgb 8.0 L (13.0-17.5) gm/dL Hct 24.2 L (39.0-53.0) % RDW 16.0 H (11.5-15.5) % Ferritin 1622.6 H (22.0-322.0) ng/mL Assessment and Plan Plan: 1. Left lower extremity weakness with multiple falls 2. Evidence of subacute infarct on brain MRI. Patient was evaluated by neurology services patient has been switched to Plavix 75 mg daily. 3. Evidence of multiple lumbar compression vertebral fractures on MRI. Patient was evaluated by orthopedic services recommended LSO brace to be worn when patie nt is out of bed no intervention at this time 4. Underlying history of hypertension 5. Underlying history of hyperlipidemia 6. Underlying history of coronary artery disease with history of coronary artery bypass graft surgery 7. Underlying history of valve replacement 8. Underlying history of pulmonary hypertension 9. Anemia with recent EGD done at [facility]. GI services following. Hemoglobin 8.0. IV iron ordered 10. Carotid stenosis. Dr. Littlejohn has been consulted Neurology, vascular surgery in GI services following IV iron ordered Discharge planning inpatient rehab versus ECF
--- NOTE | 2020-08-29 13:09 | P.PN ---
Subjective Progress Note Date: 08/29/20 Principal diagnosis: Anemia Patient seen and examined lying in bed. He denies any abdominal pain, nausea, or vomiting. He denies any bowel movements with blood in it. Nurses at the bedside and states he had a bowel movement which was normal in color. He is receiving IV iron. Objective - Vital Signs Vital signs: Vital Signs Temp 98.1 F 08/29/20 05:00 Pulse 95 08/29/20 10:12 Resp 16 08/29/20 10:12 BP 152/70 08/29/20 10:12 Pulse Ox 97 08/29/20 10:12 Intake & Output 08/28/20 08/29/20 08/29/20 18:59 06:59 18:59 Intake Total 160 200 Output Total 300 Balance -140 200 Intake: Intake, IV Titration 160 Amount Sodium Chloride 0.9% 1, 160 000 ml @ 20 mls/hr IV . Q24H [facility] Rx#:[id number] Oral 200 Output: Urine 300 Other: Voiding Method Bedside Commode Bedside Commode Urinal Urinal # Voids 5 1 # Bowel Movements 0 - Exam General appearance: The patient is alert, oriented, appears in no acute distress. HET: Head is normocephalic and atraumatic. Conjunctiva pink. Sclera anicteric. Neck: Supple without lymphadenopathy. Abdomen: Soft, thin, nontender, nondistended with bowel sounds. No guarding or rigidity. Extremities: Normal skin color and turgor. No pedal edema Neurological: No focal deficits. Alert and oriented 3. - Labs CBC & Chem 7: 08/29/20 08:02 08/28/20 05:49 Labs: Abnormal Lab Results - Last 24 Hours (Table) 08/28/20 08/29/20 Range/Units 05:49 08:02 RBC 2.69 L (4.30-5.90) m/uL Hgb 8.0 L (13.0-17.5) gm/dL Hct 24.2 L (39.0-53.0) % RDW 16.0 H (11.5-15.5) % Ferritin 1622.6 H (22.0-322.0) ng/mL Assessment and Plan (1) Anemia, normocytic normochromic Narrative/Plan: This is an 89-year-old -[place] male with multiple medical comorbidities transfer from [facility] where he presented with complaints of lower extremity weakness for evaluation by the neurology service. Patient was noted to have anemia initial hospitalization that time he reported EGD and colonoscopy within the past few years which he believed was normal. He denied any signs or symptoms of GI bleeding. Anemia felt to be multifactorial and se condary to chronic disease with recent EGD performed an evaluation which was significant for small hiatal hernia, mild gastritis and a likely grade B esophagitis Current Visit: Yes Status: Acute Code(s): D64.9 - ANEMIA, UNSPECIFIED SNOMED Code(s): 00302958 (2) Esophagitis Current Visit: Yes Status: Acute Code(s): K20.90 - ESOPHAGITIS, UNSPECIFIED WITHOUT BLEEDING SNOMED Code(s): 19862779 (3) Gastritis Current Visit: Yes Status: Acute Code(s): K29.70 - GASTRITIS, UNSPECIFIED, WITHOUT BLEEDING SNOMED Code(s): 1093104 Plan: Supportive care Diet as tolerated Continue to monitor hemoglobin and hematocrit and transfuse for hemoglobin less than 7 Continue to monitor for any signs or symptoms of GI blood loss Continue iron supplementation as ordered Continue daily Protonix therapy with findings of hiatal hernia, gastritis and esophagitis on EGD on 08/21/2020 at [facility] Thank you for allowing us participate in the care of the patient we will continue to follow closely Dr. Hall I agree with the dictator's note, documented as a scribe by Sobia Loza.
--- NOTE | 2020-08-29 16:05 | P.PN ---
Subjective Progress Note Date: 08/29/20 Patient was seen for a follow-up. Patient states he is doing much better, even better than yesterday. His left arm and left leg both getting better. No new symptoms. Denies headache. Objective - Vital Signs Vital signs: Vital Signs Temp 97.8 F 08/29/20 11:59 Pulse 100 08/29/20 15:58 Resp 16 08/29/20 11:59 BP 121/69 08/29/20 11:59 Pulse Ox 95 08/29/20 11:59 Intake & Output 08/28/20 08/29/20 08/29/20 18:59 06:59 18:59 Intake Total 160 200 Output Total 300 150 Balance -140 50 Weight 51.71 kg Intake: Intake, IV Titration 160 Amount Sodium Chloride 0.9% 1, 160 000 ml @ 20 mls/hr IV . Q24H [facility] Rx#:[id number] Oral 200 Output: Urine 300 150 Other: Voiding Method Bedside Commode Bedside Commode Urinal Urinal Urinal # Voids 5 1 # Bowel Movements 0 - Exam On examination patient's mental status, speech and language functions are normal. Cranial nerves II through XII are normal. On muscle strength testing the strength is normal in the right arm and right leg. On the left side, his deltoid is 5-, biceps and triceps are normal. [employer] is almost as good as the right side. Patient's left ankle dorsiflexion is 4, hip flexion is normal. Sensations are equal with no neglect on double simultaneous depression. Patient continues to be significantly ataxic for [id number] and [id number] testing on the left side. Bulk of muscles is overall decreased. Gait deferred. - Labs CBC & Chem 7: 08/29/20 08:02 08/28/20 05:49 Labs: Abnormal Lab Results - Last 24 Hours (Table) 08/29/20 Range/Units 08:02 RBC 2.69 L (4.30-5.90) m/uL Hgb 8.0 L (13.0-17.5) gm/dL Hct 24.2 L (39.0-53.0) % RDW 16.0 H (11.5-15.5) % Assessment and Plan Assessment: * Acute to subacute stroke right thalamus extending to internal capsule, possible lacunar, although artery to artery embolic stroke also a possibility. * Moderate bilateral ICA stenosis 50-70%. * Status post fall with multiple compression fractures in the lumbar spine. * Hypertension * X tobacco use * Cervical spondylosis, rule out spinal stenosis. MRI cervical spine poor quality. Plan: * Patient had a subacute stroke right thalamus/internal capsule. Patient was on aspirin 81 mg daily. We will switch from aspirin to Plavix 75 mg daily. Patient's strength has much improved as compared to yesterday. Continue Plavix. * Continue Protonix 40 mg daily for gastric ulcer prophylaxis. * Hemoglobin A1c 4.9. * Cholesterol 119, LDL 50, HDL 57 and triglycerides 59. Continue Zocor 40 mg daily. * Carotid Doppler from 08/18/2020 (report somewhat difficult to interpret). It reports 16-49% irregular heterogenous/smooth plaque. Minimal spectral broadening noted of bilateral common carotid arteries and bilateral external carotid arteries. Bilateral bulbs demonstrate calcified plaque with greater than 50% stenosis. 50-79% irregular heterogenous calcified plaque noted. Moderate spectral broadening of the bilateral ICAs. * 2-D echo showed normal left ventricular size. Moderate concentric LVH. Left- ventricular ejection fraction 55-60%. No pericardial effusion. No evidence of shunt was identified. * Vascular surgical input appreciated. Patient is doing much better. No indication for CEA at this time. May follow up with vascular surgery as an outpatient. * Speech therapy cleared the patient. * Possible discharge to [facility] in a.m.
[2020-08-29] MEDS: ATORVASTATIN 20 MG TAB PO SCH (21:19)
[2020-08-30 07:08] LABS: Anisocytosis Slight; Basophils % (A) 0 %; Eosinophils # (A) 0.2 k/uL (0-0.7); Eosinophils % (A) 3 %; HCT 22.8 % (39.0-53.0); HGB 7.2 gm/dL (13.0-17.5); Hypochromasia Moderate; Lymphocytes # (A) 0.9 k/uL (1.0-4.8); Lymphocytes % (A) 12 %; MCH 28.6 pg (25.0-35.0); MCHC 31.7 g/dL (31.0-37.0); MCV 90.2 fL (80.0-100.0); Mean Platelet Volume 7.8; Monocytes # (A) 0.6 k/uL (0-1.0); Monocytes % (A) 8 %; Neutrophils # (A) 5.5 k/uL (1.3-7.7); Neutrophils % (A) 74 %; Platelet Count 185 k/uL (150-450); Poikilocytosis Slight; RBC 2.53 m/uL (4.30-5.90); RDW 16.1 % (11.5-15.5); WBC 7.4 k/uL (3.8-10.6)
[2020-08-30] MEDS: METOPROLOL TARTRATE 25 MG TAB PO SCH ×3 (08:08→21:17)
[2020-08-30] MEDS: LOSARTAN 25 MG TAB PO SCH (08:09)
[2020-08-30] MEDS: FUROSEMIDE 20 MG TAB PO SCH (08:09)
[2020-08-30] MEDS: CLOPIDOGREL 75 MG TAB PO SCH (08:09)
[2020-08-30] MEDS: PANTOPRAZOLE 40 MG TABLET PO SCH (08:09)
[2020-08-30] MEDS: FOLIC ACID 1 MG TAB PO SCH (08:10)
[2020-08-30] MEDS: SODIUM BICARBONATE TAB 650 MG TAB PO SCH ×2 (08:11→21:17)
[2020-08-30] MEDS: MEGESTROL 400 MG/10 ML CUP PO SCH ×2 (08:11→21:17)
[2020-08-30] MEDS: BUDESONIDE 0.5 MG/2 ML NEBU INHALATION SCH ×2 (08:56→19:47)
[2020-08-30] MEDS: IPRATROPIUM-ALBUTEROL 3 ML NEB INHALATION PRN ×3 (08:56→19:47)
--- NOTE | 2020-08-30 09:19 | P.PN ---
Subjective Progress Note Date: 08/30/20 Principal diagnosis: Anemia The patient was seen and examined sitting up in bed. He denies any abdominal pain, nausea, or vomiting. He has not had any bowel movement since yesterday. No complaints of rectal bleeding. He did have a slight drop in his hemoglobin which was 7.2 today, down from 8 yesterday. He has no signs of any GI blood loss. Physical therapy has been working with the patient. He continues to have left extremity weakness. Objective - Vital Signs Vital signs: Vital Signs Temp 97.4 F L 08/30/20 07:21 Pulse 104 H 08/30/20 07:21 Resp 16 08/30/20 07:21 BP 178/88 08/30/20 07:21 Pulse Ox 94 L 08/30/20 07:21 Intake & Output 08/29/20 08/30/20 08/30/20 18:59 06:59 18:59 Intake Total 200 Output Total 150 400 275 Balance 50 -400 -275 Weight 51.71 kg Intake: Oral 200 Output: Urine 150 400 275 Stool 0 Other: Voiding Method Urinal Urinal # Voids 0 - Exam General appearance: The patient is alert, oriented, appears in no acute distress. HET: Head is normocephalic and atraumatic. Conjunctiva pink. Sclera anicteric. Neck: Supple without lymphadenopathy. Abdomen: Soft, thin, nontender, nondistended with bowel sounds. No guarding or rigidity. Extremities: Normal skin color and turgor. No pedal edema Neurological: No focal deficits. Alert and oriented 3. - Labs CBC & Chem 7: 08/30/20 06:10 08/30/20 06:10 Labs: Abnormal Lab Results - Last 24 Hours (Table) 08/30/20 Range/Units 06:10 RBC 2.53 L (4.30-5.90) m/uL Hgb 7.2 L (13.0-17.5) gm/dL Hct 22.8 L (39.0-53.0) % RDW 16.1 H (11.5-15.5) % Lymphocytes # 0.9 L (1.0-4.8) k/uL Assessment and Plan (1) Anemia, normocytic normochromic Narrative/Plan: This is an 89-year-old -[place] male with multiple medical comorbidities transfer from [facility] where he presented with complaints of lower extremity weakness for evaluation by the neurology service. Patient was noted to have anemia initial hospitalization that time he reported EGD and colonoscopy within the past few years which he believed was normal. He denied any signs or symptoms of GI bleeding. Anemia felt to be multifactorial and secondary to chronic disease with recent EGD performed an evaluation which was significant for small hiatal hernia, mild gastritis and a likely grade B esophagitis Current Visit: Yes Status: Acute Code(s): D64.9 - ANEMIA, UNSPECIFIED SNOMED Code(s): 73450531 (2) Esophagitis Current Visit: Yes Status: Acute Code(s): K20.90 - ESOPHAGITIS, UNSPECIFIED WITHOUT BLEEDING SNOMED Code(s): 44033591 (3) Gastritis Current Visit: Yes Status: Acute Code(s): K29.70 - GASTRITIS, UNSPECIFIED, WITHOUT BLEEDING SNOMED Code(s): 0061008 Plan: Supportive care Diet as tolerated Continue to monitor hemoglobin and hematocrit and transfuse for hemoglobin less than 7 Continue to monitor for any signs or symptoms of GI blood loss Oral iron ordered daily Continue daily Protonix therapy with findings of hiatal hernia, gastritis and esophagitis on EGD on 08/21/2020 at [facility] No Plans for any further endoscopies Thank you for allowing us participate in the care of the patient we will continue to follow closely Dr. Hall I agree with the dictator's note, documented as a scribe by Sobia Loza.
[2020-08-30 09:39] LABS: ALT <8 U/L (10-49); AST 23 U/L (14-35); African American GFR (CKD) 44.2 (60.0-200.0); Albumin/Globulin Ratio 1.89 (1.60-3.17); Alkaline Phosphatase 51 U/L (41-126); Calcium 8.7 mg/dL (8.7-10.3); Chloride 111 mmol/L (96-109); Globulin 1.8 g/dL (1.6-3.3); Glucose 95 mg/dL (70-110); Non-African American GFR(CKD) 38.2 (60.0-200.0); Sodium 144 mmol/L (135-145); Total Bilirubin 0.3 mg/dL (0.3-1.2); Total Protein 5.2 g/dL (6.2-8.2)
--- NOTE | 2020-08-30 12:26 | P.PN ---
Subjective Progress Note Date: 08/30/20 Patient was seen for a follow-up. Patient states he is doing much better, even better than yesterday. His left arm and left leg both getting better. No new symptoms. Denies headache. Patient has been fitted with a body brace, was able to get up and sit in the recliner with to assist. Patient ready to be transferred to rehab facility. Objective - Vital Signs Vital signs: Vital Signs Temp 97.4 F L 08/30/20 07:21 Pulse 104 H 08/30/20 07:21 Resp 16 08/30/20 07:21 BP 178/88 08/30/20 07:21 Pulse Ox 94 L 08/30/20 07:21 Intake & Output 08/29/20 08/30/20 08/30/20 18:59 06:59 18:59 Intake Total 200 Output Total 150 400 625 Balance 50 -400 -625 Weight 51.71 kg Intake: Oral 200 Output: Urine 150 400 625 Stool 0 Other: Voiding Method Urinal Urinal Urinal # Voids 0 - Exam On examination patient's mental status, speech and language functions are normal. Cranial nerves II through XII are normal. On muscle strength testing the strength is normal in the right arm and right leg. On the left side, his deltoid is 5-, biceps and triceps are normal. [employer] is almost as good as the right side. Patient's left ankle dorsiflexion is 4, hip flexion is normal. Sensations are equal with no neglect on double simultaneous depression. Patient continues to be significantly ataxic for epihts-th-axal and ihhw-rb-cvza testing on the left side. Bulk of muscles is overall decreased. Patient required assist of 2 just to get up from the bed and be seated in the recliner. 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 * Moderate bilateral ICA stenosis 50-70%. * Status post fall with multiple compression fractures in the lumbar spine. * Hypertension * X tobacco use * Cervical spondylosis, possible spinal stenosis. MRI cervical spine poor quality. Plan: * Patient had a subacute stroke right thalamus/internal capsule. Patient was on aspirin 81 mg daily. We will switch from aspirin to Plavix 75 mg daily. Patient's strength has much improved as compared to yesterday. Continue Plavix. * Continue Protonix 40 mg daily for gastric ulcer prophylaxis. * Hemoglobin A1c 4.9. * Cholesterol 119, LDL 50, HDL 57 and triglycerides 59. Continue Zocor 40 mg daily. * Carotid Doppler from 08/18/2020 (report somewhat difficult to interpret). It reports 16-49% irregular heterogenous/smooth plaque. Minimal spectral b roadening noted of bilateral common carotid arteries and bilateral external carotid arteries. Bilateral bulbs demonstrate calcified plaque with greater than 50% stenosis. 50-79% irregular heterogenous calcified plaque noted. Moderate spectral broadening of the bilateral ICAs. * 2-D echo showed normal left ventricular size. Moderate concentric LVH. Left- ventricular ejection fraction 55-60%. No pericardial effusion. No evidence of shunt was identified. * Vascular surgical input appreciated. Patient is doing much better. No indication for CEA at this time. May follow up with vascular surgery as an outpatient. * Patient also has cervical spinal stenosis, lumbar compression fractures. Follow-up with orthopedic surgery. May need repeat MRI of the cervical spine for better evaluation of spinal stenosis. * Possible discharge to [facility] later today.
[2020-08-30] MEDS ORDERED: SODIUM FERRIC GLUCONAT-SUCROSE 125 MG in SODIUM CHLORIDE 0.9% 100 ML IVPB ONE (17:00)
--- NOTE | 2020-08-30 19:17 | P.PN ---
Subjective Progress Note Date: 08/30/20 Fitz Blue, is an 89-year-old male who presented to [facility] emergency room a week ago with a chief complaint of left lower extremity weakness computed tomography scan of the brain without contrast was done in the emergency room and did not reveal any acute abnormality patient was seen by tele-neurology and they advised to have an MRI of the brain and cervical spine and lumbar spine, MRI was done and revealed evidence of multiple lumbar vertebral fractures, MRI of the brain also revealed possible subacute infarct, patient was transferred to [facility] to be evaluated by neurology and neurosurgery. During his stay at this [facility] patient had anemia he was evaluated by gastroenterology and had an EGD that revealed evidence of gastritis and esophagitis. His past medical history is significant for history of coronary artery disease with history of coronary artery bypass graft surgery, history of valve replacement, history of pulmonary hypertension, history of hypertension, history of hyperlipidemia, history of gout and history of anemia. On review of systems patient is alert and oriented 3 in no distress he is still complaining of weakness in the left lower extremity difficulty walking otherwise he denies any complaints at this time there is no fever or chills no headache or dizziness no chest pain no shortness of breath no cough no nausea or vomiting no abdominal pain no diarrhea and no urinary symptoms. On 08/27/2020 patient was seen and examined on the medical floor he is alert and oriented 3 in no distress he is still complaining of left lower extremity weakness otherwise he denies any complaints there is no fever or chills no headache or dizziness no chest pain no shortness of breath no cough no nausea or vomiting no abdominal pain no diarrhea no blood in the stools no burning with urination no frequency or urgency and no hematuria patient was evaluated by neurosurgery awaiting back brace at this time also awaiting neurology consultation in regard to subacute stroke, patient hemoglobin is down to 7.1 will reconsult gastroenterology will give 1 dose of IV iron today Will continue to monitor On 08/28/2020 patient was seen and examined on the medical floor he is alert and oriented 3 in no distress he reports some improvement in the weakness in the left lower extremity otherwise he denies any complaints there is no fever or chills no headache or dizziness no chest pain no shortness of breath no cough no nausea or vomiting no abdominal pain no diarrhea and no urinary symptoms. At this time no further intervention is recommended by consultants including neurology, vascular surgery, patient still has significant anemia hemoglobin is 7.3 Will continue to give IV iron Will consult Dr. Harley for possible rehab admission On 08/29/2020 patient is currently resting comfortably in bed. Patient denies any chest pain or shortness breath. Patient denies nausea vomiting or diarrhea. Patient denies any urinary burning or frequency. Dr. Harley has been consulted for possible inpatient rehab. Trying to determine discharge planning inpatient rehab versus ECF facility. On 08/30/2020 patient was seen and examined on the medical floor he is alert and oriented 3 in no apparent distress weakness in the left lower extremity is improving. Patient has worsening anemia hemoglobin dropped from 8-7.2 today despite multiple doses of IV iron, stool Hemoccult is negative today, we will give 1 more dose of IV iron today Will recheck labs in a.m., possible transfer to subacute rehab tomorrow Objective - Vital Signs Vital signs: Vital Signs Temp 98.2 F 08/30/20 12:49 Pulse 92 08/30/20 13:47 Resp 16 08/30/20 12:49 BP 154/90 08/30/20 12:49 Pulse Ox 94 L 08/30/20 12:49 Intake & Output 08/29/20 08/30/20 08/30/20 18:59 06:59 18:59 Intake Total 200 Output Total 150 400 625 Balance 50 -400 -625 Weight 51.71 kg Intake: Oral 200 Output: Urine 150 400 625 Stool 0 Other: Voiding Method Urinal Urinal Urinal # Voids 0 - Exam In general patient is alert and oriented 3 in no apparent distress HEENT head normocephalic and atraumatic Neck is supple no JVD no goiter no lymphadenopathy Chest exam reveals a few scattered rhonchi no wheezing Cardiac exam reveals regular heart sounds S1 and S2 no gallops no murmurs Abdomen is soft nontender no organomegaly with normal bowel sounds Extremity exam reveals no edema no cyanosis or clubbing Neurological examination reveals, mild weakness in the left lower extremity as compared to the right otherwise no significant findings - Labs CBC & Chem 7: 08/30/20 06:10 08/30/20 06:10 Labs: Abnormal Lab Results - Last 24 Hours (Table) 08/30/20 08/30/20 Range/Units 06:10 06:10 RBC 2.53 L (4.30-5.90) m/uL Hgb 7.2 L (13.0-17.5) gm/dL Hct 22.8 L (39.0-53.0) % RDW 16.1 H (11.5-15.5) % Lymphocytes # 0.9 L (1.0-4.8) k/uL Chloride 111 H (96-109) mmol/L BUN 28.0 H (9.0-27.0) mg/dL Creatinine 1.6 H (0.6-1.5) mg/dL Est GFR (CKD-EPI)AfAm 44.2 L (60.0-200.0) Est GFR (CKD-EPI)NonAf 38.2 L (60.0-200.0) ALT <8 L (10-49) U/L Total Protein 5.2 L (6.2-8.2) g/dL Albumin 3.40 L (3.80-4.90) g/dL Assessment and Plan Plan: 1. Left lower extremity weakness with multiple falls 2. Evidence of subacute infarct on brain MRI. Patient was evaluated by neurology services patient has been switched to Plavix 75 mg daily. 3. Evidence of multiple lumbar compression vertebral fractures on MRI. Patient was evaluated by orthopedic services recommended LSO brace to be worn when patient is out of bed no intervention at this time 4. Underlying history of hypertension 5. Underlying history of hyperlipidemia 6. Underlying history of coronary artery disease with history of coronary artery bypass graft surgery 7. Underlying history of valve replacement 8. Underlying history of pulmonary hypertension 9. Anemia with recent EGD done at [facility]. GI services following. Hemoglobin 8.0. IV iron ordered 10. Carotid stenosis. Dr. Littlejohn has been consulted Neurology, vascular surgery in GI services following IV iron ordered Discharge planning inpatient rehab versus ECF
[2020-08-30] MEDS: ATORVASTATIN 20 MG TAB PO SCH (21:16)
[2020-08-30] MEDS: hydrALAZINE HCL 25 MG TAB PO SCH (21:16)
[2020-08-30] MEDS: SODIUM CHLORIDE 0.9% 1,000 ML IV SCH (21:19)
[2020-08-31 04:36] LABS: Anisocytosis Slight; Basophils % (A) 0 %; Eosinophils # (A) 0.3 k/uL (0-0.7); Eosinophils % (A) 3 %; HCT 24.2 % (39.0-53.0); HGB 7.7 gm/dL (13.0-17.5); Hypochromasia Moderate; Lymphocytes % (A) 10 %; MCH 28.9 pg (25.0-35.0); MCHC 31.9 g/dL (31.0-37.0); MCV 90.6 fL (80.0-100.0); Mean Platelet Volume 8.6; Monocytes # (A) 0.7 k/uL (0-1.0); Monocytes % (A) 7 %; Neutrophils # (A) 7.4 k/uL (1.3-7.7); Neutrophils % (A) 76 %; Platelet Count 200 k/uL (150-450); Poikilocytosis Slight; RBC 2.67 m/uL (4.30-5.90); RDW 16.7 % (11.5-15.5); WBC 9.8 k/uL (3.8-10.6)
[2020-08-31] MEDS: IPRATROPIUM-ALBUTEROL 3 ML NEB INHALATION PRN ×2 (05:04→10:50)
[2020-08-31] MEDS: hydrALAZINE HCL 25 MG TAB PO SCH (08:14)
[2020-08-31] MEDS: FUROSEMIDE 20 MG TAB PO SCH (08:14)
[2020-08-31] MEDS: LOSARTAN 25 MG TAB PO SCH (08:14)
[2020-08-31] MEDS: METOPROLOL TARTRATE 25 MG TAB PO SCH ×2 (08:14→16:04)
[2020-08-31] MEDS: MEGESTROL 400 MG/10 ML CUP PO SCH (08:14)
[2020-08-31] MEDS: SODIUM BICARBONATE TAB 650 MG TAB PO SCH (08:14)
[2020-08-31] MEDS: FOLIC ACID 1 MG TAB PO SCH (08:15)
[2020-08-31] MEDS: PANTOPRAZOLE 40 MG TABLET PO SCH (08:15)
[2020-08-31] MEDS: CLOPIDOGREL 75 MG TAB PO SCH (08:15)
[2020-08-31 09:40] LABS: African American GFR (CKD) 41.1 (60.0-200.0); Albumin 3.6 g/dL (3.80-4.90); Anion Gap 8.1 mmol/L (4.00-12.00); BUN/Creat Ratio 17.65 Ratio (12.00-20.00); Carbon Dioxide 23.9 mmol/L (21.6-31.8); Globulin 1.8 g/dL (1.6-3.3); Non-African American GFR(CKD) 35.5 (60.0-200.0); Potassium 4.1 mmol/L (3.5-5.5); Total Bilirubin 0.2 mg/dL (0.3-1.2); Total Protein 5.4 g/dL (6.2-8.2)
[2020-08-31 10:29] LABS: Glucose,Whole Blood 121 mg/dL (75-99)
[2020-08-31] MEDS: BUDESONIDE 0.5 MG/2 ML NEBU INHALATION SCH (10:50)
[2020-08-31] MEDS ORDERED: FERROUS SULFATE 325 MG TAB PO SCH (12:30)
[2020-08-31 13:07] VITALS: BP 131/70; PULSE 90; RESP 20; TEMP 97.9
--- NOTE | 2020-08-31 13:11 | P.DS ---
Providers Date of admission: 08/25/20 17:17 Expected date of discharge: 08/31/20 Attending physician: Margaret Boss Consults: 08/25/20 19:55 Consult Physician Routine Consulting Provider: Feliciano Gabriel Consult Reason/Comments: compression fracture of lumbar spine Do you want consulting provider notified?: Yes, Notify in am 08/26/20 10:53 Consult Physician Routine Consulting Provider: Kavya Nick Consult Reason/Comments: sub acute infarct, left leg weakness Do you want consulting provider notified?: Yes 08/27/20 10:36 Consult Physician Routine Consulting Provider: Meghann Amaya Consult Reason/Comments: anemia Do you want consulting provider notified?: Yes 08/27/20 17:13 Consult Physician Routine Consulting Provider: Bhupinder Littlejohn Consult Reason/Comments: carotid stenosis Do you want consulting provider notified?: Yes 08/28/20 18:00 Consult Physician Routine Consulting Provider: Jasvir Garcia Consult Reason/Comments: possible rehab admission Do you want consulting provider notified?: Yes Primary care physician: Margaret Boss [facility] Course: Diagnoses on discharge: 1. Left lower extremity weakness with multiple falls 2. Evidence of subacute infarct on brain MRI. Patient was evaluated by neurology services patient has been switched to Plavix 75 mg daily. 3. Evidence of multiple lumbar compression vertebral fractures on MRI. Patient was evaluated by orthopedic services recommended LSO brace to be worn when patient is out of bed no intervention at this time 4. Underlying history of hypertension 5. Underlying history of hyperlipidemia 6. Underlying history of coronary artery disease with history of coronary artery bypass graft surgery 7. Underlying history of valve replacement 8. Underlying history of pulmonary hypertension 9. Anemia with recent EGD done at [facility]. GI services following. Hemoglobin 7.7. Patient received IV iron during the hospital stay he was given oral iron at the time of discharge 10. Carotid stenosis. Dr. Littlejohn has been consulted no intervention recommended at this time 11. Moderate protein calorie malnutrition maintained on Megace as an appetite stimulant Hospital course: Fitz Blue, is an 89-year-old male who presented to [facility] emergency room a week ago with a chief complaint of left lower extremity weakness computed tomography scan of the brain without contrast was done in the emergency room and did not reveal any acute abnormality patient was seen by tele-neurology and they advised to have an MRI of the brain and cervical spine and lumbar spine, MRI was done and revealed evidence of multiple lumbar vertebral fractures, MRI of the brain also revealed possible subacute infarct, patient was transferred to [facility] to be evaluated by neurology and neurosurgery. During his stay at this clinic [facility] patient had anemia he was evaluated by gastroenterology and had an EGD that revealed evidence of gastritis and esophagitis. His past medical history is significant for history of coronary artery disease with history of coronary artery bypass graft surgery, history of valve replacement, history of pulmonary hypertension, history of hypertension, history of hyperlipidemia, history of gout and history of anemia. On review of systems patient is alert and oriented 3 in no distress he is still complaining of weakness in the left lower extremity difficulty walking otherwise he denies any complaints at this time there is no fever or chills no headache or dizziness no chest pain no shortness of breath no cough no nausea or vomiting no abdominal pain no diarrhea and no urinary symptoms. On 08/27/2020 patient was seen and examined on the medical floor he is alert and oriented 3 in no distress he is still complaining of left lower extremity weakness otherwise he denies any complaints there is no fever or chills no headache or dizziness no chest pain no shortness of breath no cough no nausea or vomiting no abdominal pain no diarrhea no blood in the stools no burning with urination no frequency or urgency and no hematuria patient was evaluated by neurosurgery awaiting back brace at this time also awaiting neurology consultation in regard to subacute stroke, patient hemoglobin is down to 7.1 will reconsult gastroenterology will give 1 dose of IV iron today Will continue to monitor On 08/28/2020 patient was seen and examined on the medical floor he is alert and oriented 3 in no distress he reports some improvement in the weakness in the left lower extremity otherwise he denies any complaints there is no fever or chills no headache or dizziness no chest pain no shortness of breath no cough no nausea or vomiting no abdominal pain no diarrhea and no urinary symptoms. At this time no further intervention is recommended by consultants including neurology, vascular surgery, patient still has significant anemia hemoglobin is 7.3 Will continue to give IV iron Will consult Dr. Harely for possible rehab admission On 08/29/2020 patient is currently resting comfortably in bed. Patient denies any chest pain or shortness breath. Patient denies nausea vomiting or diarrhea. Patient denies any urinary burning or frequency. Dr. Harley has been consulted for possible inpatient rehab. Trying to determine discharge planning inpatient rehab versus ECF facility. On 08/30/2020 patient was seen and examined on the medical floor he is alert and oriented 3 in no apparent distress weakness in the left lower extremity is improving. Patient has worsening anemia hemoglobin dropped from 8-7.2 today despite multiple doses of IV iron, stool Hemoccult is negative today, we will give 1 more dose of IV iron today Will recheck labs in a.m., possible transfer to subacute rehab tomorrow On 08/31/2020 patient was seen and examined on the medical floor he is alert and oriented 3 in no apparent distress he reports improvement in the weakness in the left lower extremity he is working with physical therapy and occupational therapy at this time will proceed with discharging patient to [facility] for further rehab continue with current medications will follow CBC closely Plan - Discharge Summary Discharge Rx Participant: No New Discharge Prescriptions: New hydrALAZINE HCL [Apresoline] 25 mg PO BID tab Ferrous Sulfate [Iron (65 MG Elemental)] 325 mg PO W/LUNCH tab Pantoprazole [Protonix] 40 mg PO AC-BRKFST tablet.dr Arrington [Senokot] 8.6 mg PO DAILY PRN tab PRN Reason: Constipation Continue Aspirin EC [Ecotrin Low Dose] 81 mg PO HS Metoprolol Tartrate [Lopressor] 25 mg PO TID Zolpidem [Ambien] 10 mg PO HS PRN PRN Reason: Insomnia Sodium Bicarbonate Tab 650 mg PO BID Simvastatin [Zocor] 40 mg PO HS Megestrol [Megace] 400 mg PO BID Losartan Potassium [Cozaar] 25 mg PO DAILY Ipratropium-Albuterol Nebulize [Duoneb 0.5 mg-3 mg/3 ml Soln] 3 ml INHALATION RT-Q6H PRN PRN Reason: Shortness Of Breath Furosemide [Lasix] 20 mg PO DAILY Folic Acid 1 mg PO DAILY Budesonide [Pulmicort] 0.5 mg INHALATION RT-BID Discharge Medication List Aspirin EC [Ecotrin Low Dose] 81 mg PO HS 01/13/18 [History] Metoprolol Tartrate [Lopressor] 25 mg PO TID 01/13/18 [History] Budesonide [Pulmicort] 0.5 mg INHALATION RT-BID 08/25/20 [History] Folic Acid 1 mg PO DAILY 08/25/20 [History] Furosemide [Lasix] 20 mg PO DAILY 08/25/20 [History] Ipratropium-Albuterol Nebulize [Duoneb 0.5 mg-3 mg/3 ml Soln] 3 ml INHALATION RT-Q6H PRN 08/25/20 [History] Losartan Potassium [Cozaar] 25 mg PO DAILY 08/25/20 [History] Megestrol [Megace] 400 mg PO BID 08/25/20 [History] Simvastatin [Zocor] 40 mg PO HS 08/25/20 [History] Sodium Bicarbonate Tab 650 mg PO BID 08/25/20 [History] Zolpidem [Ambien] 10 mg PO HS PRN 08/25/20 [History] Ferrous Sulfate [Iron (65 MG Elemental)] 325 mg PO W/LUNCH tab 08/31/20 [Rx] Pantoprazole [Protonix] 40 mg PO AC-BRKFST tablet. 08/31/20 [Rx] Sennosides [Senokot] 8.6 mg PO DAILY PRN tab 08/31/20 [Rx] hydrALAZINE HCL [Apresoline] 25 mg PO BID tab 08/31/20 [Rx] Follow up Appointment(s)/Referral(s): Piotr Montiel, JAMAL [PHYSICIAN DISPATCH SUPERVISOR] - 2 Weeks (Patient may follow-up with Piotr Montiel PA-C or Dr. Efrain Gabriel at [facility] in 2-3 weeks following discharge. ) Sebastian Cooper [NON-STAFF] - 1 Week Activity/Diet/Wound Care/Special Instructions: 1. Patient may wear LSO brace for comfort and support while sitting upright at greater than 45, while working with therapy, and while ambulating; patient does not have to wear the brace while lying in bed or bathing 2. Patient should avoid excessive bending, twisting, and lifting; no lifting greater than 10 pounds
--- NOTE | 2020-08-31 14:17 | P.PN ---
Subjective Progress Note Date: 08/31/20 Principal diagnosis: Anemia She was seen and examined lying in bed. He denies any acute changes through the night. He denies any abdominal pain, nausea, or vomiting. He has still had no reported blood per rectum or melena. He is tolerating his diet. Objective - Vital Signs Vital signs: Vital Signs Temp 98.2 F 08/31/20 04:27 Pulse 100 08/31/20 11:04 Resp 22 08/31/20 08:00 BP 138/77 08/31/20 04:27 Pulse Ox 95 08/31/20 04:27 Intake & Output 08/30/20 08/31/20 08/31/20 18:59 06:59 18:59 Intake Total 100 Output Total 875 550 0 Balance -875 -450 0 Intake: Intake, IV Titration 100 Amount Sodium Ferric Gluconat- 100 Sucrose 125 mg In Sodium Chloride 0.9% 100 ml @ 100 mls/hr IVPB ONCE ONE Rx#:[id number] Output: Urine 875 550 Stool 0 Other: Voiding Method Urinal Urinal Urinal # Bowel Movements 1 - Exam General appearance: The patient is alert, oriented, appears in no acute distress. HET: Head is normocephalic and atraumatic. Conjunctiva pink. Sclera anicteric. Neck: Supple without lymphadenopathy. Abdomen: Soft, thin, nontender, nondistended with bowel sounds. No guarding or rigidity. Extremities: Normal skin color and turgor. No pedal edema Neurological: No focal deficits. Alert and oriented 3. - Labs CBC & Chem 7: 08/31/20 04:20 08/31/20 04:20 Labs: Abnormal Lab Results - Last 24 Hours (Table) 08/31/20 08/31/20 08/31/20 Range/Units 04:20 04:20 10:26 RBC 2.67 L (4.30-5.90) m/uL Hgb 7.7 L (13.0-17.5) gm/dL Hct 24.2 L (39.0-53.0) % RDW 16.7 H (11.5-15.5) % BUN 30.0 H (9.0-27.0) mg/dL Creatinine 1.7 H (0.6-1.5) mg/dL Est GFR (CKD-EPI)AfAm 41.1 L (60.0-200.0) Est GFR (CKD-EPI)NonAf 35.5 L (60.0-200.0) Glucose 119 H (70-110) mg/dL POC Glucose (mg/dL) 121 H (75-99) mg/dL Total Bilirubin 0.2 L (0.3-1.2) mg/dL ALT 8 L (10-49) U/L Total Protein 5.4 L (6.2-8.2) g/dL Albumin 3.60 L (3.80-4.90) g/dL Assessment and Plan (1) Anemia, normocytic normochromic Narrative/Plan: This is an 89-year-old -Indian male with multiple medical comorbidities transfer from [facility] where he presented with complaints of lower extremity weakness for evaluation by the neurology service. Patient was noted to have anemia initial hospitalization that time he reported EGD and colonoscopy within the past few years which he believed was normal. He denied any signs or symptoms of GI bleeding. Anemia felt to be multifactorial and secondary to chronic disease with recent EGD performed an evaluation which was significant for small hiatal hernia, mild gastritis and a likely grade B esophagitis Current Visit: Yes Status: Acute Code(s): D64.9 - ANEMIA, UNSPECIFIED SNOMED Code(s): 15370515 (2) Esophagitis Current Visit: Yes Status: Acute Code(s): K20.90 - ESOPHAGITIS, UNSPECIFIED WITHOUT BLEEDING SNOMED Code(s): 13403754 (3) Gastritis Current Visit: Yes Status: Acute Code(s): K29.70 - GASTRITIS, UNSPECIFIED, WITHOUT BLEEDING SNOMED Code(s): 6963479 Plan: Supportive care Diet as tolerated Continue to monitor hemoglobin and hematocrit and transfuse for hemoglobin less than 7 Continue to monitor for any signs or symptoms of GI blood loss Oral iron ordered daily Continue daily Protonix therapy with findings of hiatal hernia, gastritis and esophagitis on EGD on 08/21/2020 at [facility] No Plans for any further endoscopies Thank you for allowing us participate in the care of the patient, we'll sign off at this time. Dr. Hall I agree with the dictator's note, documented as a scribe by Sobia Loza.
--- NOTE | 2020-09-03 12:35 | CDI ---
Documentation Clarification Form Date: 09/03/2020 12:12:00 PM From: Rebecca Beltran Phone: If you have a question about this query, please contact Louise Garibay Chemical Research Worker at [phone] between 8am and 5pm Admit Date: 08/25/2020 05:17:00 PM Patient Name: Fitz Hurtado Visit Number: [id number] Discharge Date: 08/31/2020 04:15:00 PM ATTENTION: The Clinical Documentation Specialists (CDI) and [facility] Coding Staff appreciate your assistance in clarifying documentation. Please respond to the clarification below the line at the bottom and electronically sign. The CDI & [facility] Coding staff will review the response and follow-up if needed. Please note: Queries are made part of the Legal Health Record. If you have any questions, please contact the author of this message via ITS. Dr. Margaret Boss CKD is documented in the Consult dated 08/28. Patient's anemia was felt to be mul tifactorial and secondary to chronic disease in the setting of chronic kidney disease. History/Risk Factors: HTN, CVA, PHTN, Epilepsy, COPD, Malnutrition Patients Historical BUN/CR/GFR [be sure to date and specify where obtained]: Clinical Indicators: Hx CKD Current BUN: 23, 26, 27 CR: 1.5, 1.4, 1.6 GFR: 41.3, 44.9, 38.2 Treatment: Monitor Consult: Velocci In order to capture the severity of condition, please clarify the stage of the CKD, if known: CKD Stage 1 (GFR > 90) CKD Stage 2 (GFR 60-89) CKD Stage 3a (GFR 45-59) CKD Stage 3b (GFR 30-44) CKD Stage 4 (GFR 15-29) CKD Stage 5 (GFR <15) ESRD Other, please specify Unable to determine CKD stage 3 MTDD
== END 2020-08-31 16:15 | DRG 65 ==
LOC: 5NMEDONC 17:17
PROVIDERS: ADMIT Internal Medicine; ATTEND Internal Medicine
DX: I63.81 Other cerebral infarction due to occlusion or stenosis of small artery (principal); S32.040A Wedge compression fracture of fourth lumbar vertebra, initial encounter for closed fracture; S32.050A Wedge compression fracture of fifth lumbar vertebra, initial encounter for closed fracture; S32.030A Wedge compression fracture of third lumbar vertebra, initial encounter for closed fracture; E44.0 Moderate protein-calorie malnutrition; G81.94 Hemiplegia, unspecified affecting left nondominant side; Z68.1 Body mass index [BMI] 19.9 or less, adult; I27.20 Pulmonary hypertension, unspecified; D63.1 Anemia in chronic kidney disease; G40.909 Epilepsy, unspecified, not intractable, without status epilepticus; J44.9 Chronic obstructive pulmonary disease, unspecified; N18.30 Chronic kidney disease, stage 3 unspecified; I12.9 Hypertensive chronic kidney disease with stage 1 through stage 4 chronic kidney disease, or unspecified chronic kidney disease; E78.5 Hyperlipidemia, unspecified; I25.10 Atherosclerotic heart disease of native coronary artery without angina pectoris; K20.90 Esophagitis, unspecified without bleeding; K29.70 Gastritis, unspecified, without bleeding; M10.9 Gout, unspecified; R29.6 Repeated falls; M48.061 Spinal stenosis, lumbar region without neurogenic claudication; M48.02 Spinal stenosis, cervical region; M51.36 Other intervertebral disc degeneration, lumbar region; M47.812 Spondylosis without myelopathy or radiculopathy, cervical region; I65.23 Occlusion and stenosis of bilateral carotid arteries; K44.9 Diaphragmatic hernia without obstruction or gangrene; W06.XXXA Fall from bed, initial encounter; Z79.899 Other long term (current) drug therapy; Z79.82 Long term (current) use of aspirin; Z79.51 Long term (current) use of inhaled steroids; Z95.1 Presence of aortocoronary bypass graft; Z95.2 Presence of prosthetic heart valve; Z87.19 Personal history of other diseases of the digestive system; Z85.118 Personal history of other malignant neoplasm of bronchus and lung; Z80.1 Family history of malignant neoplasm of trachea, bronchus and lung; Z87.891 Personal history of nicotine dependence; Z71.3 Dietary counseling and surveillance
CPT/HCPCS: 80053; 82272; 82607; 82728; 82746; 83036; 83540; 83550; 85025; 94640

== ENCOUNTER 2020-12-15 18:10 | Inpatient (IN) | payer MEDICARE, OTHER ==
[2020-12-15] MEDS ORDERED: DILTIAZEM DRIP BOLUS FROM BAG 1 MG SOLN IV ONE (18:29)
[2020-12-15 18:54] LABS: Basophils # (A) 0.1 k/uL (0-0.2); Basophils % (A) 0 %; Eosinophils # (A) 0.1 k/uL (0-0.7); Eosinophils % (A) 1 %; HCT 31.7 % (39.0-53.0); HGB 10.5 gm/dL (13.0-17.5); Lymphocytes # (A) 0.4 k/uL (1.0-4.8); Lymphocytes % (A) 3 %; MCH 28.1 pg (25.0-35.0); MCHC 33.1 g/dL (31.0-37.0); MCV 84.9 fL (80.0-100.0); Mean Platelet Volume 8.5; Monocytes # (A) 0.5 k/uL (0-1.0); Monocytes % (A) 3 %; Neutrophils # (A) 12.1 k/uL (1.3-7.7); Neutrophils % (A) 90 %; Platelet Count 134 k/uL (150-450); RBC 3.73 m/uL (4.30-5.90); RDW 14.5 % (11.5-15.5); WBC 13.5 k/uL (3.8-10.6)
--- NOTE | 2020-12-15 18:57 | ED ---
SOB HPI - General Chief Complaint: Shortness of Breath Stated Complaint: BRIAN Time Seen by Provider: 12/15/20 18:26 Source: patient, EMS Mode of arrival: EMS Limitations: no limitations - History of Present Illness Initial Comments: Fitz is an 89-year-old male with history of COPD who presents to the emergency department today via ambulance for respiratory distress, patient reports he began feeling short of breath today. EMS was contacted and found the patient to be wheezing and moderate respiratory distress he was placed on nonrebreather and treated with 3 DuoNeb's and 125 mg of Solu-Medrol. - Related Data Home Medications Medication Instructions Recorded Confirmed Metoprolol Tartrate [Lopressor] 25 mg PO TID 01/13/18 12/15/20 Furosemide [Lasix] 20 mg PO DAILY 08/25/20 12/15/20 Megestrol [Megace] 400 mg PO BID 08/25/20 12/15/20 Zolpidem [Ambien] 10 mg PO HS PRN 08/25/20 12/15/20 Previous Rx's Medication Instructions Recorded Pantoprazole [Protonix] 40 mg PO AC-BRKFST tablet. 08/31/20 hydrALAZINE HCL [Apresoline] 25 mg PO BID tab 08/31/20 Allergies Allergy/AdvReac Type Severity Reaction Status Date / Time No Known Allergies Allergy Verified 12/15/20 19:29 Review of Systems ROS Statement: Those systems with pertinent positive or pertinent negative responses have been documented in the HPI. ROS Other: All systems not noted in ROS Statement are negative. Past Medical History Past Medical History: Coronary Artery Disease (CAD), Cancer, COPD, GI Bleed, Osteoarthritis (OA), Seizure Disorder Additional Past Medical History / Comment(s): lung ca, anemia, seizures 20 years ago History of Any Multi-Drug Resistant Organisms: None Reported Past Surgical History: Coronary Bypass/CABG Past Anesthesia/Blood Transfusion Reactions: No Reported Reaction Past Psychological History: No Psychological Hx Reported Smoking Status: Former smoker Past Alcohol Use History: Rare Past Drug Use History: None Reported - Past Family History Father Family Medical History: Cancer Additional Family Medical History / Comment(s): lung cancer Sister(s) Family Medical History: Cancer General Exam - General Exam Comments Initial Comments: Physical Exam GENERAL: Chronically ill-appearing cachectic male in moderate respiratory distress BMI 16 HENT: Normocephalic, Atraumatic. Temporal wasting is noted EYES: PERRL, EOMI PULMONARY: Tachypnea, grunting respirations CARDIOVASCULAR: Tachycardic ABDOMEN: Soft and nontender with normal bowel sounds. SKIN: Dry, tenting : Deferred NEUROLOGIC: Patient is alert and oriented x3 Moving all extremities spontaneously MUSCULOSKELETAL: Generalized atrophy PSYCHIATRIC: Unable to assess secondary to respiratory distress Limitations: no limitations Course Vital Signs 12/15/20 12/15/20 12/15/20 18:14 18:26 19:00 Temperature 98.6 F Pulse Rate 142 H 141 H Respiratory 18 36 H 32 H Rate Blood Pressure 99/78 113/85 O2 Sat by Pulse 94 L 100 Oximetry 12/15/20 12/15/20 12/15/20 20:07 20:08 21:27 Temperature 98.6 F Pulse Rate 111 H 111 H 109 H Respiratory 32 H 32 H 25 H Rate Blood Pressure 113/77 113/77 91/64 O2 Sat by Pulse 98 98 98 Oximetry Medical Decision Making - Medical Decision Making Patient was seen and evaluated, patient appears dehydrated, in moderate respiratory distress and afib with RVR Labs IV fluids Cardizem and BiPAP were ordered upon arrival Patient's respiratory status improved with BiPAP, heart rate improved with Cardizem Labs resulted with multiple significant abnormalities including acute renal failure, high BUN suggestive of prerenal renal failure, additional IV fluid bolus was ordered Patient care was discussed with nephrology who recommends sodium bicarb infusion 0.45 NS with 2 A of bicarb to infuse a 70 mL/h overnight Patient's troponin is elevated I suspect that this is secondary to tachycardia type II and STEMI due to demand ischemia was renal failure high d-dimer patient will be placed on heparin - Lab Data Result diagrams: 12/15/20 18:16 12/15/20 18:16 Lab Results 12/15/20 12/15/20 12/15/20 Range/Units 18:16 18:16 18:16 WBC 13.5 H (3.8-10.6) k/uL RBC 3.73 L (4.30-5.90) m/uL Hgb 10.5 L (13.0-17.5) gm/dL Hct 31.7 L (39.0-53.0) % MCV 84.9 (80.0-100.0) fL MCH 28.1 (25.0-35.0) pg MCHC 33.1 (31.0-37.0) g/dL RDW 14.5 (11.5-15.5) % Plt Count 134 L (150-450) k/uL MPV 8.5 Neutrophils % 90 % Lymphocytes % 3 % Monocytes % 3 % Eosinophils % 1 % Basophils % 0 % Neutrophils # 12.1 H (1.3-7.7) k/uL Lymphocytes # 0.4 L (1.0-4.8) k/uL Monocytes # 0.5 (0-1.0) k/uL Eosinophils # 0.1 (0-0.7) k/uL Basophils # 0.1 (0-0.2) k/uL PT 11.3 (9.0-12.0) sec INR 1.1 (<1.2) APTT 34.8 H (22.0-30.0) sec D-Dimer 3.88 H (<0.60) mg/L FEU Sodium 140 (137-145) mmol/L Potassium 5.3 H (3.5-5.1) mmol/L Chloride 106 (98-107) mmol/L Carbon Dioxide 16 L (22-30) mmol/L Anion Gap 18 mmol/L BUN 99 H (9-20) mg/dL Creatinine 5.09 H (0.66-1.25) mg/dL Est GFR (CKD-EPI)AfAm 11 (>60 ml/min/1.73 sqM) Est GFR (CKD-EPI)NonAf 9 (>60 ml/min/1.73 sqM) Glucose 136 H (74-99) mg/dL Lactic Ac Sepsis Rflx Plasma Lactic Acid Jaspal (0.7-2.0) mmol/L Calcium 8.9 (8.4-10.2) mg/dL Magnesium 2.2 (1.6-2.3) mg/dL Total Bilirubin 0.5 (0.2-1.3) mg/dL AST 43 (17-59) U/L ALT 14 (4-49) U/L Alkaline Phosphatase 72 (38-126) U/L Troponin I (0.000-0.034) ng/mL C-Reactive Protein 58.6 H (<1.0) mg/dL Total Protein 6.3 (6.3-8.2) g/dL Albumin 3.3 L (3.5-5.0) g/dL 12/15/20 12/15/20 12/15/20 Range/Units 18:16 18:16 19:22 WBC (3.8-10.6) k/uL RBC (4.30-5.90) m/uL Hgb (13.0-17.5) gm/dL Hct (39.0-53.0) % MCV (80.0-100.0) fL MCH (25.0-35.0) pg MCHC (31.0-37.0) g/dL RDW (11.5-15.5) % Plt Count (150-450) k/uL MPV Neutrophils % % Lymphocytes % % Monocytes % % Eosinophils % % Basophils % % Neutrophils # (1.3-7.7) k/uL Lymphocytes # (1.0-4.8) k/uL Monocytes # (0-1.0) k/uL Eosinophils # (0-0.7) k/uL Basophils # (0-0.2) k/uL PT (9.0-12.0) sec INR (<1.2) APTT (22.0-30.0) sec D-Dimer (<0.60) mg/L FEU Sodium (137-145) mmol/L Potassium (3.5-5.1) mmol/L Chloride (98-107) mmol/L Carbon Dioxide (22-30) mmol/L Anion Gap mmol/L BUN (9-20) mg/dL Creatinine (0.66-1.25) mg/dL Est GFR (CKD-EPI)AfAm (>60 ml/min/1.73 sqM) Est GFR (CKD-EPI)NonAf (>60 ml/min/1.73 sqM) Glucose (74-99) mg/dL Lactic Ac Sepsis Rflx Y Plasma Lactic Acid Jaspal 3.5 H* (0.7-2.0) mmol/L Calcium (8.4-10.2) mg/dL Magnesium (1.6-2.3) mg/dL Total Bilirubin (0.2-1.3) mg/dL AST (17-59) U/L ALT (4-49) U/L Alkaline Phosphatase (38-126) U/L Troponin I 0.105 H* (0.000-0.034) ng/mL C-Reactive Protein (<1.0) mg/dL Total Protein (6.3-8.2) g/dL Albumin (3.5-5.0) g/dL Critical Care Time Critical Care Time: Yes Total Critical Care Time: 30 Critical Care Time: Critical care time was exclusive of separately billable procedures and treating other patients and teaching time. Critical care was necessary to treat or prevent imminent or life-threatening deterioration. Given the critical condition in which the patient arrived, the patient was immediately assessed by myself and the nurse, and cardiac monitoring initiated due to the potential for rapid decompensation of the patient's clinical condition. During the course of the patients stay, I spent a considerable amount of time at the bedside performing serial re-evaluations of the patient's hemodynamic and clinical status because of the recognized potential threat to life or limb in this condition. I then had a chance to review not only all of the available current laboratory and radiographic studies obtained today, but I also reviewed old records available to me at the time. Additionally, any ancillary information available including sample maker hand records were reviewed. Sequential vital signs were obtained. Disposition Clinical Impression: COPD (chronic obstructive pulmonary disease), Atrial fibrillation with RVR, ARF (acute renal failure), Elevated troponin, Cachexia Disposition: ADMITTED IP TO THIS [facility] Condition: Serious Is patient prescribed a controlled substance at d/c from ED?: No
[2020-12-15 19:05] LABS: Potassium 5.3 mmol/L (3.5-5.1)
[2020-12-15] MEDS: DILTIAZEM 125 MG in SODIUM CHLORIDE 0.9% 100 ML IV SCH (19:05)
[2020-12-15 19:08] LABS: Albumin 3.3 g/dL (3.5-5.0); Calcium 8.9 mg/dL (8.4-10.2); Magnesium 2.2 mg/dL (1.6-2.3); Total Bilirubin 0.5 mg/dL (0.2-1.3); Total Protein 6.3 g/dL (6.3-8.2)
[2020-12-15 19:09] LABS: INR 1.1 (<1.2); Partial Thromboplastin Time 34.8 sec (22.0-30.0); Prothrombin Time 11.3 sec (9.0-12.0)
--- NOTE | 2020-12-15 19:16 | XR ---
EXAMINATION TYPE: XR chest 1V portable DATE OF EXAM: 12/15/2020 COMPARISON: 08/17/2020 HISTORY: Pneumonia. Short of breath. TECHNIQUE: FINDINGS: Heart is enlarged. There is no obvious heart failure. There is coarse interstitial infiltra te in the right lung and left upper lobe. There is blunting right costophrenic angle. There is artifa ct over the chest. There are no hilar masses. There are sternal wires. IMPRESSION: Bilateral interstitial pneumonia. Cardiomegaly. Small right pleural effusion and pleural reaction right lung base appears increased compared to old exam. No obvious heart failure.
[2020-12-15 19:38] LABS: C Reactive Protein 58.6 mg/dL (<1.0)
[2020-12-15] MEDS ORDERED: SODIUM CHLORIDE 0.9% 500 ML 500 ML IV ONE (19:39)
[2020-12-15] MEDS ORDERED: SODIUM CHLORIDE 0.9% 1,000 ML IV ONE (21:18)
[2020-12-15] MEDS ORDERED: HEPARIN SODIUM 1,000 UN/ML (10ML VL) IV PRN (21:20)
[2020-12-15] MEDS ORDERED: HEPARIN SODIUM 1,000 UN/ML (10ML VL) IV ONE (21:20)
[2020-12-15] MEDS ORDERED: SODIUM CHLORIDE 0.9% 1,000 ML IV SCH (21:30)
[2020-12-15] MEDS: HEPARIN SOD,PORK IN 0.45% NACL 25,000 UNIT in 0.45% NACL 1 250ML.BAG IV SCH (21:35)
[2020-12-15] MEDS ORDERED: SODIUM CHLORIDE 0.45% 1,000 ML with SODIUM BICARB (1 MEQ/ML) 100 ML IV SCH ×2 (22:00)
[2020-12-15 23:03] LABS: Basophils % (A) 0 %; Eosinophils % (A) 0 %; HCT 33.2 % (39.0-53.0); HGB 9.7 gm/dL (13.0-17.5); Hypochromasia Marked; Lymphocytes # (A) 0.1 k/uL (1.0-4.8); Lymphocytes % (A) 1 %; MCH 26.6 pg (25.0-35.0); MCHC 29.3 g/dL (31.0-37.0); Mean Platelet Volume 8.4; Monocytes # (A) 0.3 k/uL (0-1.0); Monocytes % (A) 2 %; Neutrophils # (A) 13.3 k/uL (1.3-7.7); Neutrophils % (A) 95 %; Platelet Count 117 k/uL (150-450); RBC 3.67 m/uL (4.30-5.90); RDW 14.8 % (11.5-15.5)
[2020-12-15 23:04] LABS: MCV 90.6 fL (80.0-100.0)
[2020-12-15 23:10] LABS: INR 1.1 (<1.2); Partial Thromboplastin Time 74.3 sec (22.0-30.0); Prothrombin Time 11.9 sec (9.0-12.0)
[2020-12-16 04:25] LABS: Basophils # (A) 0.1 k/uL (0-0.2); Basophils % (A) 0 %; Eosinophils % (A) 0 %; HCT 30.5 % (39.0-53.0); HGB 9.1 gm/dL (13.0-17.5); Hypochromasia Marked; Lymphocytes # (A) 0.3 k/uL (1.0-4.8); Lymphocytes % (A) 2 %; MCH 27.3 pg (25.0-35.0); MCHC 29.7 g/dL (31.0-37.0); Mean Platelet Volume 8.6; Monocytes # (A) 0.4 k/uL (0-1.0); Monocytes % (A) 2 %; Neutrophils # (A) 16.5 k/uL (1.3-7.7); Neutrophils % (A) 95 %; Platelet Count 122 k/uL (150-450); RBC 3.32 m/uL (4.30-5.90); RDW 14.7 % (11.5-15.5); WBC 17.4 k/uL (3.8-10.6)
[2020-12-16 04:31] LABS: INR 1.1 (<1.2); Partial Thromboplastin Time 58.2 sec (22.0-30.0); Prothrombin Time 11.8 sec (9.0-12.0)
[2020-12-16] MEDS: DILTIAZEM 125 MG in SODIUM CHLORIDE 0.9% 100 ML IV SCH ×2 (06:34→20:11)
[2020-12-16] MEDS ORDERED: predniSONE 20 MG TAB PO SCH (09:00)
[2020-12-16 09:05] LABS: Calcium 7.9 mg/dL (8.4-10.2)
[2020-12-16 09:12] LABS: Potassium 5.4 mmol/L (3.5-5.1)
[2020-12-16] MEDS ORDERED: AZITHROMYCIN 500 MG TAB PO SCH (12:00)
--- NOTE | 2020-12-16 12:12 | CONS ---
CONSULTATION REASON FOR CONSULT: Renal failure. HISTORY OF PRESENT ILLNESS: The patient is an 89-year-old male who was admitted to the hospital with shortness of breath, increased weakness. He was found to be in moderate respiratory distress and placed on a nonrebreather. Patient was found to be COVID positive and is being treated for COVID pneumonia. His serum creatinine was 5.0 on admission. It is down to 3.75 today. Previous creatinine noted in October and September of 2.3 and 2.1 mg/dL. Patient's blood pressure had been on the lower side with systolic 99-106 mmHg. He has been voiding. At home patient was maintained on Lasix. No history of use of NSAIDs. PAST MEDICAL HISTORY: Hypertension, coronary artery disease, COPD, history of GI bleed, osteoarthritis, seizure disorder, lung cancer, details not known; chronic anemia. PAST SURGICAL HISTORY: Coronary artery bypass surgery. SOCIAL HISTORY: Patient is a former smoker. No history of drug abuse or alcohol abuse. MEDICATIONS: Medications prior to admission, Lopressor, Lasix, Megace, Ambien, Protonix, hydralazine. ALLERGIES: None. REVIEW OF SYSTEMS: As per HPI. Other systems negative. EXAMINATION: Patient is comfortable. He is awake, not in any acute distress. Blood pressure 99/52, heart rate 101 per minute, he is afebrile. Examination shows no evidence of edema lower extremities. Abdomen is soft, nontender. Heart and lungs are not examined. LAB: Show sodium 139, potassium 5.4, chloride 111, CO2 is 12, BUN 98, serum creatinine 3.75. Lactic acid was 3.5, down to 1.1 now. Magnesium of 2.2. ASSESSMENT: 1. Acute kidney injury, mostly prerenal and associated with volume depletion, possible component of acute tubular necrosis from underlying COVID pneumonia as well. Currently nonoliguric, rule out urine retention. Check postvoid scan. Continue with IV fluids for now. Renal function has improved. 2. Metabolic acidosis, anion gap associated with renal failure as well as lactic acidosis, maintained on bicarb drip which I will adjust as the bicarb is lower today. No ongoing diarrhea noted at this time. 3. Hyperkalemia associated with acute kidney injury, metabolic acidosis, rule out urine retention. 4. COVID pneumonia. 5. Acute hypoxic respiratory failure, currently maintained on nasal cannula at 3 L. 6. Atrial fibrillation, currently maintained on Cardizem drip. The patient had rapid ventricular response on admission. PLAN: Change IV fluids to D5W with 3 amps of bicarb. Check post-void residual. Encourage increased oral intake. Repeat labs in a.m. Avoid nephrotoxic agents. Avoid hypotension. Thank you for this consultation. Will continue to follow the patient with you during his hospitalization. MMKOURTNEY / RODYN: [id number] /
--- NOTE | 2020-12-16 12:14 | US ---
EXAMINATION TYPE: US kidneys/renal and bladder DATE OF EXAM: 12/16/2020 COMPARISON: NONE CLINICAL HISTORY: RF. Covid, renal failure EXAM MEASUREMENTS: Right Kidney: 9.5 x 3.7 x 4.6 cm Left Kidney: 9.3 x 5.4 x 4.3 cm Right Kidney: No evidence of hydro, difficult to visualize due to overlying bowel gas and pt's positi on Left Kidney: Appeared wnl Bladder: wnl Bilateral Jets seen: No IMPRESSION: Right renal assessment limited with no obvious hydronephrosis or nephrolithiasis kaity ortiz.
[2020-12-16] MEDS: DEXTROSE 5% IN WATER 1,000 ML with SODIUM BICARB (1 MEQ/ML) 150 ML IV SCH (12:36)
--- NOTE | 2020-12-16 12:55 | P.HPIM ---
History of Present Illness H&P Date: 12/16/20 Fitz Blue, is an 89 year old male who presented to [facility] emergency room with a chief complaint of worsening shortness of breath, patient stated that he started having shortness of breath on the day of presentation that progressed to significant breathing difficulty EMS were called, they found patient to be in significant respiratory distress he was started on nonrebreather mask and was treated with IV Solu-Medrol and DuoNeb updrafts and was brought in to [facility] emergency room. In the emergency room patient was evaluated, his vital examination on presentation revealed a temperature of 98.6 pulse 142 respiration 18 blood pressure 99/78 pulse ox 94% on room air, laboratory data on presentation revealed a white blood count of 13.5 hemoglobin 10.5 platelet count 134 d-dimer 3.88, sodium 140 potassium 5.3 chloride 106 CO2 16 BUN 19 9 creatinine 5.09 glucose level was 136 plasma lactic acid was 3.5 troponin level was elevated at 0.105 C-reactive protein 58.6 Procalcitonin more than 100 and coronavirus PCR was positive. Chest x-ray was done in the emergency room and revealed bilateral interstitial pneumonia, cardiomegaly, small right pleural effusion and pleural reaction , EKG was done in the emergency room and revealed atrial fibrillation with rapid ventricular response and nonspecific ST abnormality . Patient was admitted to telemetry floor for further evaluation and treatment. Patient was admitted to [facility] in August 2020 after having a stroke, he was discharged to [facility] on the [facility] for re habilitation and was discharged home about 6 weeks ago. His past medical history is also significant for hypertension, hyperlipidemia, coronary artery disease with history of coronary artery bypass graft surgery, history of COPD, history of pulmonary hypertension, history of multiple lumbar compression vertebral fractures, history of anemia, history of carotid stenosis, history of osteoarthritis, and history of protein calorie malnutrition. Past Medical History Past Medical History: Coronary Artery Disease (CAD), Cancer, COPD, GI Bleed, Osteoarthritis (OA), Seizure Disorder Additional Past Medical History / Comment(s): lung ca, anemia, seizures 20 years ago History of Any Multi-Drug Resistant Organisms: None Reported Past Surgical History: Coronary Bypass/CABG Past Anesthesia/Blood Transfusion Reactions: No Reported Reaction Past Psychological History: No Psychological Hx Reported Smoking Status: Former smoker Past Alcohol Use History: Rare Past Drug Use History: None Reported - Past Family History Father Family Medical History: Cancer Additional Family Medical History / Comment(s): lung cancer Sister(s) Family Medical History: Cancer Medications and Allergies Home Medications Medication Instructions Recorded Confirmed Type Metoprolol Tartrate [Lopressor] 25 mg PO TID 01/13/18 12/15/20 History Furosemide [Lasix] 20 mg PO DAILY 08/25/20 12/15/20 History Megestrol [Megace] 400 mg PO BID 08/25/20 12/15/20 History Zolpidem [Ambien] 10 mg PO HS PRN 08/25/20 12/15/20 History Pantoprazole [Protonix] 40 mg PO AC-BRKFST tablet. 08/31/20 12/15/20 Rx hydrALAZINE HCL [Apresoline] 25 mg PO BID tab 08/31/20 12/15/20 Rx Allergies Allergy/AdvReac Type Severity Reaction Status Date / Time No Known Allergies Allergy Verified 12/15/20 19:29 Physical Exam Vitals: Vital Signs Temp Pulse Pulse Resp BP BP Pulse Ox 12/16/20 09:43 97.8 F 101 H 16 99/52 99 12/16/20 04:00 97.9 F 103 H 21 106/61 99 12/16/20 02:00 111 H 20 12/16/20 00:00 98.3 F 111 H 20 113/71 99 12/15/20 21:27 109 H 25 H 91/64 98 12/15/20 20:08 98.6 F 111 H 32 H 113/77 98 12/15/20 20:07 111 H 32 H 113/77 98 12/15/20 19:59 98.3 F 111 H 20 113/71 99 12/15/20 19:00 141 H 32 H 113/85 100 12/15/20 18:26 36 H 12/15/20 18:14 98.6 F 142 H 18 99/78 94 L Intake and Output 12/15/20 12/16/20 12/16/20 22:59 06:59 14:59 Intake Total 126.408 0 Output Total 150 Balance -23.592 0 Intake: Intake, IV Titration 126.408 Amount Diltiazem 125 mg In 114.833 Sodium Chloride 0.9% 100 ml @ Per Protocol IV .Q0M YAHIR Rx#:[id number] Heparin Sod,Pork in 0.45% 11.575 NaCl 25,000 unit In 0.45 % NaCl 1 250ml.bag @ 12 UNITS/KG/HR 5.987 mls/hr IV .Q24H YAHIR Rx#: [id number] Oral 0 Output: Urine 150 Other: # Voids 1 Weight 49.895 kg 50 kg In general patient is alert and oriented x3 in no distress HEENT head normocephalic and atraumatic Neck is supple no JVD no goiter no lymphadenopathy no carotid bruit Chest examination reveals a crackles in both lung phillips with mild wheezing Cardiac exam reveals irregular heart sounds S1 and S2 with tachycardia no gallops no murmurs Abdomen is soft nontender no organomegaly with normal bowel sounds Extremity exam reveals no edema no cyanosis or clubbing Neurological examination reveals no gross focal deficits Results CBC & Chem 7: 12/16/20 03:29 12/16/20 03:29 Labs: Abnormal Lab Results - Last 24 Hours (Table) 12/15/20 12/15/20 12/15/20 Range/Units 18:16 18:16 18:16 WBC 13.5 H (3.8-10.6) k/uL RBC 3.73 L (4.30-5.90) m/uL Hgb 10.5 L (13.0-17.5) gm/dL Hct 31.7 L (39.0-53.0) % MCHC (31.0-37.0) g/dL Plt Count 134 L (150-450) k/uL Neutrophils # 12.1 H (1.3-7.7) k/uL Lymphocytes # 0.4 L (1.0-4.8) k/uL APTT 34.8 H (22.0-30.0) sec D-Dimer 3.88 H (<0.60) mg/L FEU Potassium 5.3 H (3.5-5.1) mmol/L Chloride (98-107) mmol/L Carbon Dioxide 16 L (22-30) mmol/L BUN 99 H (9-20) mg/dL Creatinine 5.09 H (0.66-1.25) mg/dL Glucose 136 H (74-99) mg/dL Plasma Lactic Acid Jaspal (0.7-2.0) mmol/L Calcium (8.4-10.2) mg/dL Troponin I (0.000-0.034) ng/mL C-Reactive Protein 58.6 H (<1.0) mg/dL Albumin 3.3 L (3.5-5.0) g/dL Procalcitonin (0.02-0.09) ng/mL Coronavirus (PCR) (Not Detectd) 12/15/20 12/15/20 12/15/20 Range/Units 18:16 18:16 18:16 WBC (3.8-10.6) k/uL RBC (4.30-5.90) m/uL Hgb (13.0-17.5) gm/dL Hct (39.0-53.0) % MCHC (31.0-37.0) g/dL Plt Count (150-450) k/uL Neutrophils # (1.3-7.7) k/uL Lymphocytes # (1.0-4.8) k/uL APTT (22.0-30.0) sec D-Dimer (<0.60) mg/L FEU Potassium (3.5-5.1) mmol/L Chloride (98-107) mmol/L Carbon Dioxide (22-30) mmol/L BUN (9-20) mg/dL Creatinine (0.66-1.25) mg/dL Glucose (74-99) mg/dL Plasma Lactic Acid Jaspal 3.5 H* (0.7-2.0) mmol/L Calcium (8.4-10.2) mg/dL Troponin I 0.105 H* (0.000-0.034) ng/mL C-Reactive Protein (<1.0) mg/dL Albumin (3.5-5.0) g/dL Procalcitonin >100.00 H (0.02-0.09) ng/mL Coronavirus (PCR) (Not Detectd) 12/15/20 12/15/20 12/15/20 Range/Units 20:07 22:16 22:16 WBC 14.0 H (3.8-10.6) k/uL RBC 3.67 L (4.30-5.90) m/uL Hgb 9.7 L (13.0-17.5) gm/dL Hct 33.2 L (39.0-53.0) % MCHC 29.3 L (31.0-37.0) g/dL Plt Count 117 L (150-450) k/uL Neutrophils # 13.3 H (1.3-7.7) k/uL Lymphocytes # 0.1 L (1.0-4.8) k/uL APTT 74.3 H (22.0-30.0) sec D-Dimer (<0.60) mg/L FEU Potassium (3.5-5.1) mmol/L Chloride (98-107) mmol/L Carbon Dioxide (22-30) mmol/L BUN (9-20) mg/dL Creatinine (0.66-1.25) mg/dL Glucose (74-99) mg/dL Plasma Lactic Acid Jaspal (0.7-2.0) mmol/L Calcium (8.4-10.2) mg/dL Troponin I (0.000-0.034) ng/mL C-Reactive Protein (<1.0) mg/dL Albumin (3.5-5.0) g/dL Procalcitonin (0.02-0.09) ng/mL Coronavirus (PCR) Detected A (Not Detectd) 12/15/20 12/16/20 12/16/20 Range/Units 22:16 03:29 03:29 WBC 17.4 H (3.8-10.6) k/uL RBC 3.32 L (4.30-5.90) m/uL Hgb 9.1 L (13.0-17.5) gm/dL Hct 30.5 L (39.0-53.0) % MCHC 29.7 L (31.0-37.0) g/dL Plt Count 122 L (150-450) k/uL Neutrophils # 16.5 H (1.3-7.7) k/uL Lymphocytes # 0.3 L (1.0-4.8) k/uL APTT 58.2 H (22.0-30.0) sec D-Dimer (<0.60) mg/L FEU Potassium (3.5-5.1) mmol/L Chloride (98-107) mmol/L Carbon Dioxide (22-30) mmol/L BUN (9-20) mg/dL Creatinine (0.66-1.25) mg/dL Glucose (74-99) mg/dL Plasma Lactic Acid Jaspal 2.2 H* (0.7-2.0) mmol/L Calcium (8.4-10.2) mg/dL Troponin I (0.000-0.034) ng/mL C-Reactive Protein (<1.0) mg/dL Albumin (3.5-5.0) g/dL Procalcitonin (0.02-0.09) ng/mL Coronavirus (PCR) (Not Detectd) 12/16/20 Range/Units 03:29 WBC (3.8-10.6) k/uL RBC (4.30-5.90) m/uL Hgb (13.0-17.5) gm/dL Hct (39.0-53.0) % MCHC (31.0-37.0) g/dL Plt Count (150-450) k/uL Neutrophils # (1.3-7.7) k/uL Lymphocytes # (1.0-4.8) k/uL APTT (22.0-30.0) sec D-Dimer (<0.60) mg/L FEU Potassium 5.4 H (3.5-5.1) mmol/L Chloride 111 H (98-107) mmol/L Carbon Dioxide 12 L (22-30) mmol/L BUN 98 H (9-20) mg/dL Creatinine 3.75 H (0.66-1.25) mg/dL Glucose 204 H (74-99) mg/dL Plasma Lactic Acid Jaspal (0.7-2.0) mmol/L Calcium 7.9 L (8.4-10.2) mg/dL Troponin I (0.000-0.034) ng/mL C-Reactive Protein (<1.0) mg/dL Albumin (3.5-5.0) g/dL Procalcitonin (0.02-0.09) ng/mL Coronavirus (PCR) (Not Detectd) Thrombosis Risk Factor Assmnt - Choose All That Apply Any of the Below Risk Factors Present?: Yes Each Factor Represents 1 point: Abnormal pulmonary function (COPD) Other Risk Factors: Yes Each Risk Factor Represents 3 Points: Age 75 years or older Other congenital or acquired thrombophilia - If yes, enter type in comment: No Thrombosis Risk Factor Assessment Total Risk Factor Score: 4 Thrombosis Risk Factor Assessment Level: Moderate Risk Assessment and Plan Plan: 1. COVID-19 infection 2. Bilateral interstitial pneumonia, possibly related to COVID-19, however bacterial superimposed infection cannot be ruled out 3. Evidence of sepsis, with leukocytosis, hypotension, and elevated lactic acid 4. Acute on chronic renal failure, creatinine on admission in August was 1.5 nephrology consultation requested 5. Severe hyperkalemia 6. Underlying history of COPD 7. Recent history of stroke in August 2020 8. Underlying history of hypertension 9. Underlying history of hyperlipidemia 10. Underlying history of coronary artery disease with previous history of coronary artery bypass graft surgery 11. Underlying history of multiple lumbar compression vertebral fractures. 12. Previous history of anemia and history of GI bleed At this time patient is admitted to telemetry floor He received IV fluid boluses He was started on IV heparin and IV Cardizem drip He was started on IV antibiotic Rocephin and Zithromax He was started on steroids prednisone 40 mg daily Pulmonary, nephrology, infectious disease and cardiology consultation requested. Prognosis is poor due to advanced age, severity of illness, and multiple underlying medical conditions
[2020-12-16] MEDS ORDERED: SODIUM POLYSTYRENE SULFONATE 15 GM/60 ML BOTTLE PO ONE (13:00)
[2020-12-16] MEDS: DEXAMETHASONE SOD PHOSPHATE 10 MG/ML 1 ML VIAL IV SCH (14:38)
--- NOTE | 2020-12-16 15:30 | P.CNPUL ---
History of Present Illness Consult date: 12/16/20 Requesting physician: Margaret Boss Reason for consult: dyspnea, COPD Chief complaint: Shortness of breath, chest tightness and wheezing History of present illness: This is a pleasant 89-year-old gentleman who follows with Dr. Boss as his primary care provider. He has history of hypertension, CVA, coronary artery disease with previous coronary artery bypass grafting, COPD, seizure disorder, previous smoker, lung cancer. He presented to the emergency room yesterday with complaints of increasing shortness of breath, chest tightness and wheezing. He was found to be in atrial fibrillation with a rapid ventricular response. Chest x-ray revealed bilateral interstitial pneumonia. Cardiomegaly. Small right pleural effusion and pleural reaction at the right lung base. White count 17.4. Hemoglobin 9.1. Sodium 139. Potassium 5.4. Creatinine 3.75. Presenting creatinine was 5.09. Pro-calcitonin greater than 100. Troponin 0.105. C- reactive protein 58.6. Andres virus positive. He is seen today in consultation on the selective care unit. The patient is a poor historian. Unable to determine when his symptoms started. He is currently resting fairly comfortably in bed. Awake and alert in no acute distress. Maintaining O2 saturations in the high 90s on 3 L/m per nasal cannula. Afebrile. Slightly tachycardic. Ultrasound of the kidneys revealed no hydronephrosis or nephrolithiasis bilaterally. His initiated on a Cardizem drip at 10 mg per hour, heparin drip and antibiotics in the form of ceftriaxone and azithromycin. His initiated on Decadron 10 mg IV daily. Review of Systems REVIEW OF SYSTEMS: CONSTITUTIONAL: Denies any recent significant weight loss or weight gain. EYES: Denies change in vision. EARS, NOSE, MOUTH, THROAT: Denies headaches, denies sore throat. CARDIOVASCULAR: Denies chest pain, palpitations or syncopal episodes. RESPIRATORY: Positive for shortness of breath, cough, congestion no hemoptysis. GASTROINTESTINAL: Denies change in appetite, denies abdominal pain GENITOURINARY: Denies hematuria, denies infections. MUSKULOSKELETAL: Denies pain, denies swelling. INTEGUMENTARY: Denies rash, denies eczema. NEUROLOGICAL: Denies recent memory loss, no recent seizure activity. PSYCHIATRIC: Denies anxiety, denies depression. HEMATOLOGIC/LYMPHATIC: Denies anemia, denies enlarged lymph nodes. Past Medical History Past Medical History: Coronary Artery Disease (CAD), Cancer, COPD, GI Bleed, Osteoarthritis (OA), Seizure Disorder Additional Past Medical History / Comment(s): lung ca, anemia, seizures 20 years ago History of Any Multi-Drug Resistant Organisms: None Reported Past Surgical History: Coronary Bypass/CABG Past Anesthesia/Blood Transfusion Reactions: No Reported Reaction Past Psychological History: No Psychological Hx Reported Smoking Status: Former smoker Past Alcohol Use History: Rare Past Drug Use History: None Reported - Past Family History Father Family Medical History: Cancer Additional Family Medical History / Comment(s): lung cancer Sister(s) Family Medical History: Cancer Medications and Allergies Home Medications Medication Instructions Recorded Confirmed Type Metoprolol Tartrate [Lopressor] 25 mg PO TID 01/13/18 12/15/20 History Furosemide [Lasix] 20 mg PO DAILY 08/25/20 12/15/20 History Megestrol [Megace] 400 mg PO BID 08/25/20 12/15/20 History Zolpidem [Ambien] 10 mg PO HS PRN 08/25/20 12/15/20 History Pantoprazole [Protonix] 40 mg PO AC-BRKFST tablet. 08/31/20 12/15/20 Rx hydrALAZINE HCL [Apresoline] 25 mg PO BID tab 08/31/20 12/15/20 Rx Allergies Allergy/AdvReac Type Severity Reaction Status Date / Time No Known Allergies Allergy Verified 12/15/20 19:29 Physical Exam Vitals: Vital Signs Temp Pulse Pulse Resp BP BP Pulse Ox 12/16/20 12:49 98.4 F 88 16 100/60 97 12/16/20 09:43 97.8 F 101 H 16 99/52 99 12/16/20 04:00 97.9 F 103 H 21 106/61 99 12/16/20 02:00 111 H 20 12/16/20 00:00 98.3 F 111 H 20 113/71 99 12/15/20 21:27 109 H 25 H 91/64 98 12/15/20 20:08 98.6 F 111 H 32 H 113/77 98 12/15/20 20:07 111 H 32 H 113/77 98 05/15/21 19:59 98.3 F 111 H 20 113/71 99 12/15/20 19:00 141 H 32 H 113/85 100 12/15/20 18:26 36 H 12/15/20 18:14 98.6 F 142 H 18 99/78 94 L Intake and Output 12/16/20 12/16/20 12/16/20 06:59 14:59 22:59 Intake Total 126.408 0 Output Total 150 Balance -23.592 0 Intake: Intake, IV Titration 126.408 Amount Diltiazem 125 mg In 114.833 Sodium Chloride 0.9% 100 ml @ Per Protocol IV .Q0M [facility] Rx#:[id number] Heparin Sod,Pork in 0.45% 11.575 NaCl 25,000 unit In 0.45 % NaCl 1 250ml.bag @ 12 UNITS/KG/HR 5.987 mls/hr IV .Q24H [facility] Rx#: [id number] Oral 0 Output: Urine 150 Other: # Voids 1 Weight 50 kg GENERAL EXAM: Alert, frail 89-year-old gentleman, on 3 L nasal cannula comfortable in no apparent distress. HEAD: Normocephalic. EYES: Normal reaction of pupils, equal size. NOSE: Clear with pink turbinates. THROAT: No erythema or exudates. NECK: No masses, no JVD. CHEST: No chest wall deformity. LUNGS: Equal air entry with us in the bilateral posterior bases right greater than left. CVS: S1 and S2 normal with no audible murmur, regular rhythm. ABDOMEN: No hepatosplenomegaly, normal bowel sounds, no guarding or rigidity. SPINE: No scoliosis or deformity SKIN: No rashes CENTRAL NERVOUS SYSTEM: No focal deficits, tone is normal in all 4 extremities. EXTREMITIES: There is no peripheral edema. No clubbing, no cyanosis. Peripheral pulses are intact. Results - Laboratory Findings CBC and BMP: 12/16/20 03:29 12/16/20 03:29 PT/INR, D-dimer PT 11.8 sec (9.0-12.0) 12/16/20 03:29 INR 1.1 (<1.2) 12/16/20 03:29 D-Dimer 3.88 mg/L FEU (<0.60) H 12/15/20 18:16 Abnormal lab findings: Abnormal Labs 12/15/20 12/15/20 12/15/20 18:16 18:16 18:16 WBC 13.5 H RBC 3.73 L Hgb 10.5 L Hct 31.7 L MCHC Plt Count 134 L Neutrophils # 12.1 H Lymphocytes # 0.4 L APTT 34.8 H D-Dimer 3.88 H Potassium 5.3 H Chloride Carbon Dioxide 16 L BUN 99 H Creatinine 5.09 H Glucose 136 H Plasma Lactic Acid Jaspal Calcium Troponin I C-Reactive Protein 58.6 H Albumin 3.3 L Procalcitonin Coronavirus (PCR) 12/15/20 12/15/20 12/15/20 18:16 18:16 18:16 WBC RBC Hgb Hct MCHC Plt Count Neutrophils # Lymphocytes # APTT D-Dimer Potassium Chloride Carbon Dioxide BUN Creatinine Glucose Plasma Lactic Acid Jaspal 3.5 H* Calcium Troponin I 0.105 H* C-Reactive Protein Albumin Procalcitonin >100.00 H Coronavirus (PCR) 12/15/20 12/15/20 12/15/20 20:07 22:16 22:16 WBC 14.0 H RBC 3.67 L Hgb 9.7 L Hct 33.2 L MCHC 29.3 L Plt Count 117 L Neutrophils # 13.3 H Lymphocytes # 0.1 L APTT 74.3 H D-Dimer Potassium Chloride Carbon Dioxide BUN Creatinine Glucose Plasma Lactic Acid Jaspal Calcium Troponin I C-Reactive Protein Albumin Procalcitonin Coronavirus (PCR) Detected A 12/15/20 12/16/20 12/16/20 22:16 03:29 03:29 WBC 17.4 H RBC 3.32 L Hgb 9.1 L Hct 30.5 L MCHC 29.7 L Plt Count 122 L Neutrophils # 16.5 H Lymphocytes # 0.3 L APTT 58.2 H D-Dimer Potassium Chloride Carbon Dioxide BUN Creatinine Glucose Plasma Lactic Acid Jaspal 2.2 H* Calcium Troponin I C-Reactive Protein Albumin Procalcitonin Coronavirus (PCR) 12/16/20 03:29 WBC RBC Hgb Hct MCHC Plt Count Neutrophils # Lymphocytes # APTT D-Dimer Potassium 5.4 H Chloride 111 H Carbon Dioxide 12 L BUN 98 H Creatinine 3.75 H Glucose 204 H Plasma Lactic Acid Jaspal Calcium 7.9 L Troponin I C-Reactive Protein Albumin Procalcitonin Coronavirus (PCR) - Diagnostic Findings Chest x-ray: image reviewed Assessment and Plan Assessment: 1 Acute hypoxemic respiratory failure secondary to acute COVID-19 pneumonia, cannot rule out underlying bacterial pneumonia. The patient is a poor historian unable to determine onset of symptoms. No Remdesivir for now. 2 Leukocytosis, pro-calcitonin greater than 100 secondary to above 3 Elevated inflammatory markers secondary to above 4 Acute renal failure 5 Atrial fibrillation with a rapid ventricular response, currently on Cardizem drip and heparin drip 6 Recent CVA 7 Troponin leak 8 Coronary artery disease with previous history of coronary artery bypass grafting 9 Chronic obstructive pulmonary disease 10 Remote history of lung cancer, details of which are unclear 11 Former smoker Plan: The patient was seen and evaluated by Dr. Chou Chest x-ray and labs reviewed Add bronchodilators Continue antibiotics Continue dexamethasone Currently on a heparin drip Add vitamin supplements We will continue to follow and make further recommendations based on his clinical status I, the cosigning physician, performed a history & physical examination of the patient. Lungs sounds with crackles in the bilateral bases. Maintaining good O2 saturations in the 90s on 3 L/m per nasal cannula. I discussed the assessment and plan of care with my nurse practitioner, Adia Guan. I attest to the above consultation as dictated by her. Time with Patient: Greater than 30
--- NOTE | 2020-12-16 20:53 | P.CRDCN ---
History of Present Illness History of present illness: HISTORY OF PRESENTING ILLNESS This is a pleasant 89-year-old with past medical history significant for hypertension, stroke, coronary artery disease with previous ? CABG, bioprosthetic aortic valve replacement, COPD, seizure disorder, previous tobacco abuse, lung cancer. He follows in the office with Dr. Cifuentes. Patient has been having increased shortness breath for last 2 days and therefore called EMS. Patient was found have COVID-19 pneumonia. Patient is somewhat poor historian and records were obtained from the office. Patient was last seen in 2018 in office. He had aortic valve replacement, had moderate to severe mitral regurgitation at that time with [facility] 01/19/20 which showed normal ejection fraction 60-65% with normal bioprosthetic aortic valve and moderate to severe mitral regurgitation with severe tricuspid regurgitation and an RVSP of 62 Blood work showed white blood cell count 13.5, hemoglobin 10.5, platelets 134, d-dimer 3.8, potassium 5.3, BUN 99, creatinine 5.09, pro-calcitonin greater than 100, troponin 0.1, CRP 58, coronavirus positive. Chest x-ray showed bilateral interstitial pneumonia, cardiomegaly, small right pleural effusion. Patient was seen by nephrology and was placed on D5W with bicarb. Initial EKG was called atrial fibrillation however appears to have regular P waves, sinus rhythm with frequent PACs. Additionally there are nonspecific ST, T-wave abnormalities. REVIEW OF SYSTEMS At the time of my exam: CONSTITUTIONAL: Denies fever or chills. CARDIOVASCULAR: Denies chest pain, +shortness of breath, no orthopnea, PND or palpitations. RESPIRATORY: Denies cough. GASTROINTESTINAL: Denies abdominal pain, diarrhea, constipation, nausea or vomiting. MUSCULOSKELETAL: Denies myalgias. NEUROLOGIC: Denies numbness, tingling or weakness. ENDOCRINE: +fatigue, no weight change, polydipsia or polyurina. GENITOURINARY: Denies burning, hematuria or urgency with micturation. HEMATOLOGIC: Denies history of anemia or bleeding. PHYSICAL EXAMINATION Vital signs reviewed. CONSTITUTIONAL: No apparent distress. HEENT: Head is normocephalic. Pupils are equal, round. Sclerae anicteric. Mucous membranes of the mouth are moist. No JVD. No carotid bruit. CHEST EXAMINATION: Decreased breath sounds bilaterally HEART EXAMINATION: Regular rate and rhythm. S1, S2 heard. No murmurs, gallops or rub. ABDOMEN: Soft, nontender. Positive bowel sounds. EXTREMITIES: 2+ peripheral pulses, no lower extremity edema and no calf tenderness. NEUROLOGIC EXAMINATION: Patient is awake, alert and oriented x3. ASSESSMENT 1. Sinus tachycardia with frequent PACs. Do not see evidence on EKG with atrial fibrillation 2. Acute renal failure 3. COVID-19 pneumonia 4. Mildly elevated troponins related to COVID-19 infection and chronic kidney disease, no symptoms to suggest acute coronary syndrome 5. History of bioprosthetic aortic valve replacement 6. History of moderate to severe mitral regurgitation, severe tricuspid regurgitation 7. History of pulmonary hypertension 8. Anemia 9. Hyperkalemia 10. Questionable history of CABG, none noted on office notes PLAN Patient's main presentation of shortness breath, COVID-19 infection with acute renal failure. Patient noted to have mildly elevated troponins however no clear-cut angina-type symptoms. We will check a 2-D echo to evaluate for left ventricular function as well as to evaluate for any significant valvular disease. Additionally monitor his bioprosthetic aortic valve and the degree of mitral regurgitation, tricuspid regurgitation. Given multiorgan failure and COVID-19 infection, prognosis is guarded. Past Medical History Past Medical History: Coronary Artery Disease (CAD), Cancer, COPD, GI Bleed, Osteoarthritis (OA), Seizure Disorder Additional Past Medical History / Comment(s): lung ca, anemia, seizures 20 years ago History of Any Multi-Drug Resistant Organisms: None Reported Past Surgical History: Coronary Bypass/CABG Past Anesthesia/Blood Transfusion Reactions: No Reported Reaction Past Psychological History: No Psychological Hx Reported Smoking Status: Former smoker Past Alcohol Use History: Rare Past Drug Use History: None Reported - Past Family History Father Family Medical History: Cancer Additional Family Medical History / Comment(s): lung cancer Sister(s) Family Medical History: Cancer Medications and Allergies Home Medications Medication Instructions Recorded Confirmed Type Metoprolol Tartrate [Lopressor] 25 mg PO TID 01/13/18 12/15/20 History Furosemide [Lasix] 20 mg PO DAILY 08/25/20 12/15/20 History Megestrol [Megace] 400 mg PO BID 08/25/20 12/15/20 History Zolpidem [Ambien] 10 mg PO HS PRN 08/25/20 12/15/20 History Pantoprazole [Protonix] 40 mg PO AC-BRKFST tablet. 08/31/20 12/15/20 Rx hydrALAZINE HCL [Apresoline] 25 mg PO BID tab 08/31/20 12/15/20 Rx Allergies Allergy/AdvReac Type Severity Reaction Status Date / Time No Known Allergies Allergy Verified 12/15/20 19:29 Physical Exam Vitals: Vital Signs Temp Pulse Pulse Resp BP BP Pulse Ox 12/16/20 16:00 98.4 F 92 16 116/55 96 12/16/20 14:00 16 12/16/20 12:49 98.4 F 88 16 100/60 97 12/16/20 09:43 97.8 F 101 H 16 99/52 99 12/16/20 04:00 97.9 F 103 H 21 106/61 99 12/16/20 02:00 111 H 20 12/16/20 00:00 98.3 F 111 H 20 113/71 99 12/15/20 21:27 109 H 25 H 91/64 98 Intake and Output 12/16/20 12/16/20 12/16/20 06:59 14:59 22:59 Intake Total 126.408 0 125 Output Total 150 Balance -23.592 0 125 Intake: Intake, IV Titration 126.408 125 Amount Diltiazem 125 mg In 114.833 125 Sodium Chloride 0.9% 100 ml @ Per Protocol IV .Q0M [facility] Rx#:[id number] Heparin Sod,Pork in 0.45% 11.575 NaCl 25,000 unit In 0.45 % NaCl 1 250ml.bag @ 12 UNITS/KG/HR 5.987 mls/hr IV .Q24H [facility] Rx#: [id number] Oral 0 0 Output: Urine 150 Other: # Voids 1 3 Weight 50 kg Results 12/16/20 03:29 12/16/20 03:29 Coagulation 12/15/20 12/16/20 Range/Units 22:16 03:29 PT 11.9 11.8 (9.0-12.0) sec APTT 74.3 H 58.2 H (22.0-30.0) sec CBC 12/15/20 12/16/20 Range/Units 22:16 03:29 WBC 14.0 H 17.4 H (3.8-10.6) k/uL RBC 3.67 L 3.32 L (4.30-5.90) m/uL Hgb 9.7 L 9.1 L (13.0-17.5) gm/dL Hct 33.2 L 30.5 L (39.0-53.0) % Plt Count 117 L 122 L (150-450) k/uL Comprehensive Metabolic Panel 12/16/20 Range/Units 03:29 Sodium 139 (137-145) mmol/L Potassium 5.4 H (3.5-5.1) mmol/L Chloride 111 H (98-107) mmol/L Carbon Dioxide 12 L (22-30) mmol/L BUN 98 H (9-20) mg/dL Creatinine 3.75 H (0.66-1.25) mg/dL Glucose 204 H (74-99) mg/dL Calcium 7.9 L (8.4-10.2) mg/dL Current Medications Generic Name Dose Route Start Last Admin Trade Name Freq PRN Reason Stop Dose Admin Ascorbic Acid 1,000 mg 12/17/20 09:00 Ascorbic Acid 500 Mg Tab PO DAILY [facility] Azithromycin 500 mg 12/16/20 12:00 12/16/20 12:26 Azithromycin 500 Mg Tab PO 500 mg DAILY@1200 [facility] Administration Cholecalciferol 25 mcg 12/17/20 09:00 Cholecalciferol 25 Mcg (1000 Iu) Tablet PO DAILY [facility] Dexamethasone Sodium Phosphate 10 mg 12/16/20 13:00 12/16/20 14:38 Dexamethasone Sod Phosphate 10 Mg/Ml 1 Ml Vial IV 10 mg DAILY [facility] Administration Heparin Sodium (Porcine) 0 unit 12/15/20 21:20 Heparin Sodium 1,000 Un/Ml (10ml Vl) IV PER PROTOCOL PRN Low PTT Protocol Diltiazem HCl 125 mg/ Sodium 125 mls @ 0 mls/hr 12/15/20 18:30 12/16/20 20:11 Chloride IV 10 mg/hr .Q0M [facility] 10 mls/hr Administration Protocol Per Protocol Heparin Sodium/Sodium Chloride 250 mls @ 5.987 mls/hr 12/15/20 21:30 12/15/20 23:31 25,000 unit/ Sodium Chloride IV 10 units/kg/hr .Q24H [facility] 4.99 mls/hr Titration Protocol 12 UNITS/KG/HR Sodium Bicarbonate 150 ml/ 1,150 mls @ 80 mls/hr 12/16/20 12:00 12/16/20 12:36 Dextrose/Water IV Not Given .[id number] [facility] Ceftriaxone Sodium 1 gm/ 50 mls @ 100 mls/hr 12/16/20 12:00 12/16/20 12:26 Sodium Chloride IVPB 100 mls/hr Q24HR [facility] Administration Zinc Sulfate 220 mg 12/17/20 09:00 Zinc Sulfate 220 Mg Cap PO DAILY [facility] Intake and Output 12/16/20 12/16/20 12/16/20 06:59 14:59 22:59 Intake Total 126.408 0 125 Output Total 150 Balance -23.592 0 125 Intake: Intake, IV Titration 126.408 125 Amount Diltiazem 125 mg In 114.833 125 Sodium Chloride 0.9% 100 ml @ Per Protocol IV .Q0M [facility] Rx#:[id number] Heparin Sod,Pork in 0.45% 11.575 NaCl 25,000 unit In 0.45 % NaCl 1 250ml.bag @ 12 UNITS/KG/HR 5.987 mls/hr IV .Q24H [facility] Rx#: [id number] Oral 0 0 Output: Urine 150 Other: # Voids 1 3 Weight 50 kg 12/16/20 03:29 12/16/20 03:29
[2020-12-17] MEDS: AMPICILLIN-SULBACTAM 3 GM in SODIUM CHLORIDE 0.9% 100 ML IVPB SCH ×3 (04:17→20:04)
--- NOTE | 2020-12-17 06:29 | CONS ---
CONSULTATION DATE OF SERVICE: 12/16/2020 REASON FOR CONSULTATION: Pneumonia and COVID. HISTORY OF PRESENT ILLNESS: The patient is an 89-year-old male with past medical history of COPD. The patient was brought into the ER by EMS for evaluation of increasing shortness of breath. Apparently the patient mentioned his breathing is slightly getting worse. The day of presentation hospital the patient was noticed to be in significant respiratory distress. EMS was called and the patient was placed on non-rebreather. He was treated with Solu-Medrol and DuoNeb and the patient was subsequently brought into the hospital for further evaluation. On arrival to the ER the patient was afebrile and no fever has been recorded since then. The patient did have white count of 13.5 and it is up to 17.4 today. Also have elevated BUN and creatinine. Lactic acid was elevated. CRP was 58.6, procalcitonin more than 100. Andres PCR came back positive. The patient has been started on Rocephin and Zithromax, in addition to heparin per protocol, zinc and Decadron. Infectious Disease was consulted for further management for antibiotic therapy. Patient is not a very good historian. He is complaining of a cough which is congested and moderate in intensity but not bringing up any sputum. The patient denies any nausea. No vomiting or choking on food. No abdominal pain or any diarrhea. REVIEW OF SYSTEMS: Positive points have been mentioned in HPI. Rest of systems are negative. PAST MEDICAL HISTORY: Coronary artery disease, cancer, COPD, GI bleed, osteoarthritis, seizure disorder, history of lung cancer. PAST SURGICAL HISTORY: Coronary artery bypass grafting. SOCIAL HISTORY: Remote history of smoking. Rarely drinks. No drug use. FAMILY HISTORY: Father with history of lung cancer. ALLERGIES: No known drug allergies. MEDICATIONS: The patient is currently on zinc, heparin, diltiazem, dexamethasone, vitamin C, Rocephin and Zithromax. PHYSICAL EXAMINATION: VITAL SIGNS: Blood pressure is 105/61 with a pulse of 90, temperature 97.9, he is 98% on 3 L nasal cannula. GENERAL DESCRIPTION: Patient is an elderly male lying in bed in no distress. No tachypnea or accessory muscles of respiration use. HEENT: Examination shows slight pallor, no scleral icterus. Oral mucous membrane is dry. NECK: Trachea central, no thyromegaly. LUNGS: Unlabored breathing, coarse breath sounds bilaterally. No wheeze or crackle. HEART: S1-S2, regular rate and rhythm. ABDOMEN: Soft, no tenderness. No guarding or rigidity. EXTREMITIES: No edema of the feet. SKIN: No rash or mass palpable. NEUROLOGICAL: Patient is awake, alert, oriented times two. Mood and affect normal. LABS: Hemoglobin is 9.1, white count 13.4, BUN of 98, creatinine 3.75. Andres PCR was detected. Procalcitonin more than 100. DIAGNOSTIC IMPRESSION: 1. Patient admitted to the hospital with acute shortness of breath in this patient who did have a cough, significantly elevated procalcitonin with bilateral interstitial pneumonia and pleural reaction, right lung base, increased compared to old exam, with concern for possible bacterial pneumonia, question aspiration etiology. 2. Patient did have a positive COVID test. However, it is hard to determine when his symptoms started with elevated procalcitonin, more features of bacterial pneumonia than a viral pneumonia. PLAN: 1. We will try to obtain sputum for Gram stain and culture. 2. We will check urine for Legionella antigen. 3. We will switch him over to Unasyn 3 g q.12h with the dose adjusted to his kidney function. 4. We will follow on his clinical condition and culture to further adjust medication if needed. Thank you for this consultation. Will follow this patient along with you. MMODL / IJN: [id number] /
[2020-12-17] MEDS: HEPARIN SOD,PORK IN 0.45% NACL 25,000 UNIT in 0.45% NACL 1 250ML.BAG IV SCH (07:51)
[2020-12-17] MEDS: DEXTROSE 5% IN WATER 1,000 ML with SODIUM BICARB (1 MEQ/ML) 150 ML IV SCH (07:52)
[2020-12-17 08:26] LABS: Albumin 2.7 g/dL (3.5-5.0); Calcium 7.9 mg/dL (8.4-10.2); Potassium 3.4 mmol/L (3.5-5.1); Total Bilirubin 0.4 mg/dL (0.2-1.3); Total Protein 5.3 g/dL (6.3-8.2)
[2020-12-17 08:34] LABS: Basophils % (A) 0 %; Eosinophils % (A) 0 %; HCT 24.8 % (39.0-53.0); HGB 7.9 gm/dL (13.0-17.5); Lymphocytes # (A) 0.2 k/uL (1.0-4.8); Lymphocytes % (A) 2 %; MCH 27.2 pg (25.0-35.0); MCHC 31.8 g/dL (31.0-37.0); Mean Platelet Volume 8.5; Monocytes # (A) 0.3 k/uL (0-1.0); Monocytes % (A) 2 %; Neutrophils # (A) 15.2 k/uL (1.3-7.7); Neutrophils % (A) 96 %; Platelet Count 120 k/uL (150-450); RDW 14.9 % (11.5-15.5); WBC 15.8 k/uL (3.8-10.6)
[2020-12-17 08:35] LABS: MCV 85.5 fL (80.0-100.0)
[2020-12-17] MEDS: ASCORBIC ACID 500 MG TAB PO SCH (10:05)
[2020-12-17] MEDS: LACTATED RINGERS 1,000 ML IV SCH ×2 (10:05→22:29)
[2020-12-17] MEDS: DEXAMETHASONE SOD PHOSPHATE 10 MG/ML 1 ML VIAL IV SCH (10:05)
[2020-12-17] MEDS: CHOLECALCIFEROL 25 MCG (1000 IU) TABLET PO SCH (10:05)
[2020-12-17] MEDS: ASPIRIN 81 MG PO SCH (10:06)
[2020-12-17] MEDS: ZINC SULFATE 220 MG CAP PO SCH (10:06)
[2020-12-17] MEDS: METOPROLOL TARTRATE 25 MG TAB PO SCH ×2 (10:06→20:01)
--- NOTE | 2020-12-17 10:41 | PN ---
PROGRESS NOTE Patient is seen for followup for acute kidney injury appears to be mostly prerenal currently improved with IV hydration. Patient was also quite acidotic on admission with lactic acidosis as well. He was started on IV bicarb and his renal function has improved today with creatinine going down from 5.0 on initial admission to 2.67 currently. The patient has been voiding well. He is awake. He has been eating. He does have underlying COVID pneumonia. PHYSICAL EXAMINATION: On examination today, blood pressure 112/55, heart rate 100 per minute. Patient is afebrile. He is awake, comfortable. He appears euvolemic. The patient's heart and lungs are not examined. 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 LABS: Labs show sodium 141, potassium 3.4, chloride 104, BUN 97, creatinine 2.67, hemoglobin 7.9 g/dL. Lactic acid down to 1.1. ASSESSMENT: 1. Acute kidney injury, acute tubular necrosis, secondary to hypotension, underlying COVID pneumonia currently improved. The patient is maintained on IV fluids. 2. COVID pneumonia, stable, O2 saturations 95% on 3 L nasal cannula, maintained on steroids. 3. Metabolic acidosis with lactic acidosis currently improved, discontinue IV bicarb. 4. Atrial fibrillation, maintained on Cardizem drip. The patient had rapid ventricular response on initial admission. PLAN: Change IV fluids to Ringer lactate. Repeat labs in a.m. Avoid nephrotoxic agents. Encourage increased oral intake. May continue with antibiotics and steroids. MMODL / IJN: [id number] /
--- NOTE | 2020-12-17 12:30 | ECHOF ---
Referral Reason:re: LV fuction MEASUREMENTS -------- HEIGHT: 175.3 cm WEIGHT: 49.9 kg BP: 105/61 IVSd: 1.4 cm (0.6 - 1.1) LVIDd: 4.2 cm (3.9 - 5.3) LVPWd: 1.6 cm (0.6 - 1.1) IVSs: 1.9 cm LVIDs: 2.5 cm LVPWs: 2.2 cm LAESV Index (A-L): 77.45 ml/m Ao Diam: 3.9 cm (2.0 - 3.7) AV Cusp: 2.1 cm (1.5 - 2.6) LA Diam: 3.2 cm (2.7 - 3.8) MV EXCURSION: 28.460 mm (> 18.000) MV EF SLOPE: 205 mm/s (70 - 150) EPSS: 1.0 cm MV E [place]: 1.03 m/s MV DecT: 253 ms MV A [place]: 0.60 m/s MV E/A Ratio: 1.70 AV maxP.37 mmHg AV meanP.81 mmHg RAP: 5.00 mmHg RVSP: 80.01 mmHg FINDINGS -------- This was a technically good study. The left ventricular size is normal. There is moderate concentric left ventricular hypertrophy. O verall left ventricular systolic function is normal with, an EF between 55 - 60 %. Increased LAP Gr lyle 2 Diastolic Dysfunction. The right ventricle is normal in size. LA is severely dilated >40 ml/m2 RA appears enlarged. Aortic valve is trileaflet and is moderately thickened. Peak/mean gradient across the Aortic Valve is 45.37mmHg / 24.81mmHg. 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 The mitral valve is normal. The mitral valve leaflets are mildly thickened. Mild mitral annular c alcification present. Moderate mitral regurgitation is present , predominately a posteriorly direct ed jet. The tricuspid valve appears structurally normal. Severe tricuspid regurgitation present. There is severe pulmonary hypertension. The right ventricular systolic pressure, as measured by Doppler, is 80.01mmHg. There is no pulmonic regurgitation present. The aortic root size is normal. Normal inferior vena cava with normal inspiratory collapse consistent with estimated right atrial pre ssure of 5 mmHg. There is no pericardial effusion. CONCLUSIONS -------- 1. The left ventricular size is normal. 2. There is moderate concentric left ventricular hypertrophy. 3. Overall left ventricular systolic function is normal with, an EF between 55 - 60 %. 4. Increased LAP Grade 2 Diastolic Dysfunction. 5. LA is severely dilated >40 ml/m2 6. RA appears enlarged. 7. Aortic valve is trileaflet and is moderately thickened. 8. Peak/mean gradient across the Aortic Valve is 45.37mmHg / 24.81mmHg. 9. 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 10. The mitral valve leaflets are mildly thickened. 11. Mild mitral annular calcification present. 12. Moderate mitral regurgitation is present. 13. , predominately a posteriorly directed jet. 14. Severe tricuspid regurgitation present. 15. There is severe pulmonary hypertension. 16. The right ventricular systolic pressure, as measured by Doppler, is 80.01mmHg. 17. The aortic root size is normal. 18. There is no pericardial effusion. TOP IRONER: Yolanda Mcdaniel RDCS
--- NOTE | 2020-12-17 13:14 | P.PN ---
Subjective HISTORY OF PRESENTING ILLNESS This is a pleasant 89-year-old with past medical history significant for hypertension, stroke, coronary artery disease with previous CABG, bioprosthetic aortic valve replacement, COPD, seizure disorder, previous tobacco abuse and lung cancer. He follows in the office with Dr. Cifuentes. Patient has been having increased shortness breath for last 2 days and therefore called EMS. Patient was found have COVID-19 pneumonia. Patient is somewhat poor historian and records were obtained from the office. Patient was last seen in 2018 in office. He had aortic valve replacement, had moderate to severe mitral regurgitation at that time with [facility]IVEL 01/19/20 which showed normal ejection fraction 60-65% with normal bioprosthetic aortic valve and moderate to severe mitral regurgitation with severe tricuspid regurgitation and an RVSP of 62. Blood work showed white blood cell count 13.5, hemoglobin 10.5, platelets 134, d-dimer 3.8, potassium 5.3, BUN 99, creatinine 5.09, pro-calcitonin greater than 100, troponin 0.1, CRP 58, coronavirus positive. Chest x-ray showed bilateral interstitial pneumonia, cardiomegaly, small right pleural effusion. Patient was seen by nephrology and was placed on D5W with bicarb. Initial EKG was called atrial fibrillation however appears to have regular P waves, sinus rhythm with frequent PACs. Additionally there are nonspecific ST, T-wave abnormalities. 12/17/2020 Patient seen and interviewed sitting up resting comfortably in bed in no acute distress. He denies symptoms of chest pain or worsening shortness of breath. Blood pressure 98/54 heart rate 96 afebrile maintaining oxygen saturation on nasal cannula. Laboratory data reviewed, WBC 15.8, hemoglobin 7.9, platelets 120, sodium 141, potassium 3.4, creatinine 2.67. GENERAL: Well-appearing, well-nourished and in no acute distress. Full examination deferred secondary to COVID-19 ASSESSMENT Sinus tachycardia with frequent PACs COVID-19 pneumonia Mildly elevated troponin related to COVID-19 infection and chronic kidney disease Acute renal failure History of bioprosthetic aortic valve replacement History of moderate to severe mitral regurgitation and severe tricuspid regurgitation History of pulmonary hypertension Anemia Hyperkalemia, resolved PLAN Echocardiogram has been obtained and will be reviewed. Troponin elevation secondary to COVID-19 and renal failure, no evidence to suggest ACS. Discontinue heparin infusion. Resume lopressor at 25 mg BID. Echocardiogram is unremarkable we will follow along as needed, recommend follow- up in the office with Dr. Cifuentes upon discharge. Nurse Practitioner note has been reviewed, I agree with a documented findings and plan of care. Patient was seen and examined. Objective - Vital Signs Vital signs: Vital Signs Temp 97.6 F 12/17/20 04:00 Pulse 96 12/17/20 04:00 Resp 20 12/17/20 04:00 BP 98/54 12/17/20 04:00 Pulse Ox 96 12/17/20 04:00 Intake & Output 12/16/20 12/17/20 12/17/20 18:59 06:59 18:59 Intake Total 0 1045 Output Total 700 350 Balance 0 345 -350 Weight 50.5 kg Intake: Intake, IV Titration 445 Amount Dextrose 5% in Water 1, 320 000 ml @ 80 mls/hr IV . [id number] AYHIR with Sodium Bicarb (1 Meq/ml) 150 ml Rx#:[id number] Diltiazem 125 mg In 125 Sodium Chloride 0.9% 100 ml @ Per Protocol IV .Q0M YAHIR Rx#:[id number] Oral 0 600 Output: Urine 700 350 Other: # Voids 3 - Labs CBC & Chem 7: 12/17/20 07:26 12/17/20 07:26 Labs: Abnormal Lab Results - Last 24 Hours (Table) 12/17/20 12/17/20 12/17/20 Range/Units 07:26 07:26 07:26 WBC 15.8 H (3.8-10.6) k/uL RBC 2.90 L (4.30-5.90) m/uL Hgb 7.9 L (13.0-17.5) gm/dL Hct 24.8 L (39.0-53.0) % Plt Count 120 L (150-450) k/uL Neutrophils # 15.2 H (1.3-7.7) k/uL Lymphocytes # 0.2 L (1.0-4.8) k/uL APTT 37.8 H (22.0-30.0) sec Potassium 3.4 L (3.5-5.1) mmol/L BUN 97 H (9-20) mg/dL Creatinine 2.67 H (0.66-1.25) mg/dL Glucose 144 H (74-99) mg/dL Calcium 7.9 L (8.4-10.2) mg/dL Total Protein 5.3 L (6.3-8.2) g/dL Albumin 2.7 L (3.5-5.0) g/dL Microbiology - Last 24 Hours (Table) 12/15/20 18:16 Blood Culture - Preliminary Blood No Growth after 24 hours 12/15/20 18:16 Blood Culture - Preliminary Blood No Growth after 24 hours
--- NOTE | 2020-12-17 15:38 | P.PN ---
Subjective Progress Note Date: 12/17/20 Principal diagnosis: COPD exacerbation, atrial fibrillation with RVR, pneumonia. This is a pleasant 89-year-old gentleman who follows with Dr. Boss as his primary care provider. He has history of hypertension, CVA, coronary artery disease with previous coronary artery bypass grafting, COPD, seizure disorder, previous smoker, lung cancer. He presented to the emergency room yesterday with complaints of increasing shortness of breath, chest tightness and wheezing. He was found to be in atrial fibrillation with a rapid ventricular response. Chest x-ray revealed bilateral interstitial pneumonia. Cardiomegaly. Small right pleural effusion and pleural reaction at the right lung base. White count 17.4. Hemoglobin 9.1. Sodium 139. Potassium 5.4. Creatinine 3.75. Presenting creatinine was 5.09. Pro-calcitonin greater than 100. Troponin 0.105. C- reactive protein 58.6. Andres virus positive. He is seen today in consultation on the selective care unit. The patient is a poor historian. Unable to determine when his symptoms started. He is currently resting fairly comfortably in bed. Awake and alert in no acute distress. Maintaining O2 saturations in the high 90s on 3 L/m per nasal cannula. Afebrile. Slightly tachycardic. Ultrasound of the kidneys revealed no hydronephrosis or nephrolithiasis bilaterally. His initiated on a Cardizem drip at 10 mg per hour, heparin drip and antibiotics in the form of ceftriaxone and azithromycin. His initiated on Decadron 10 mg IV daily. Progress note dated 12/17/2020. 89-year-old black male, seen by our nurse practitioner yesterday in consultation. The patient has a history of hypertension, CVA, coronary disease, previous bypass grafting, COPD, seizure disorder, and lung cancer. The patient apparently presented to the emergency department with complaints of increasing shortness of breath, chest tightness, and wheezing. He was found to have atrial fibrillation with RVR, and also was positive for coronavirus infection. The patient seems be recently comfortable this time. He is on 3 L. Saturations are 97%. Heart rate 86. Respiratory rate 18. No audible wheezing, use of accessory muscles, or conversational dyspnea. The patient is not a particularly good historian. White count 15.8, hemoglobin 7.9, hematocrit 24.8, and platelet count 120,000. PTT is 37.8. Sodium 141, potassium 3.4, chlorides 104, CO2 25, anion gap 12, BUN 97, and creatinine 2.67. Initial lactic acid 2.2. Repeat lactic acid 1.1. Chest x-ray shows bilateral interstitial pneumonia with cardiomegaly. There is a small right-sided pleural effusion. Objective - Vital Signs Vital signs: Vital Signs Temp 97.7 F 12/17/20 11:56 Pulse 86 12/17/20 14:00 Resp 18 12/17/20 14:00 BP 109/56 12/17/20 11:56 Pulse Ox 97 12/17/20 11:56 Intake & Output 12/16/20 12/17/20 12/17/20 18:59 06:59 18:59 Intake Total 0 1045 Output Total 700 450 Balance 0 345 -450 Weight 50.5 kg Intake: Intake, IV Titration 445 Amount Dextrose 5% in Water 1, 320 000 ml @ 80 mls/hr IV . [id number] YAHIR with Sodium Bicarb (1 Meq/ml) 150 ml Rx#:[id number] Diltiazem 125 mg In 125 Sodium Chloride 0.9% 100 ml @ Per Protocol IV .Q0M YAHIR Rx#:[id number] Oral 0 600 Output: Urine 700 450 Other: # Voids 3 - Exam No acute distress, poor historian, currently on 3 L nasal cannula, with saturations in mid 90s. No obvious respiratory distress. HEENT examination is grossly unremarkable. Neck supple. Full range of motion. No adenopathy thyromegaly or neck vein distention. Cardiovascular examination reveals regular rhythm rate. S1-S2 normal. No S3 or S4. No discernible murmur noted. Heart rate 77 bpm. Lungs reveal scattered rhonchi and crackles. Breath sounds equal bilaterally. He is not taking deep breaths. No distinct wheezes noted. Abdomen soft bowel sounds are heard. No masses or tenderness. Extremities are intact. No cyanosis clubbing or edema. Skin is without rash or lesion. Neurologic examination is brief but nonfocal. - Labs CBC & Chem 7: 12/17/20 07:26 12/17/20 07:26 Labs: Abnormal Lab Results - Last 24 Hours (Table) 12/17/20 12/17/20 12/17/20 Range/Units 07:26 07:26 07:26 WBC 15.8 H (3.8-10.6) k/uL RBC 2.90 L (4.30-5.90) m/uL Hgb 7.9 L (13.0-17.5) gm/dL Hct 24.8 L (39.0-53.0) % Plt Count 120 L (150-450) k/uL Neutrophils # 15.2 H (1.3-7.7) k/uL Lymphocytes # 0.2 L (1.0-4.8) k/uL APTT 37.8 H (22.0-30.0) sec Potassium 3.4 L (3.5-5.1) mmol/L BUN 97 H (9-20) mg/dL Creatinine 2.67 H (0.66-1.25) mg/dL Glucose 144 H (74-99) mg/dL Calcium 7.9 L (8.4-10.2) mg/dL Total Protein 5.3 L (6.3-8.2) g/dL Albumin 2.7 L (3.5-5.0) g/dL Microbiology - Last 24 Hours (Table) 12/15/20 18:16 Blood Culture - Preliminary Blood No Growth after 24 hours 12/15/20 18:16 Blood Culture - Preliminary Blood No Growth after 24 hours Assessment and Plan Assessment: Acute hypoxemic respiratory failure, likely secondary to acute COVID 19 pneumonia, but also related to underlying atrial fibrillation/RVR. Possible aspiration pneumonia, right lung. Elevated inflammatory markers secondary to coronavirus infection. Acute renal failure. Atrial fibrillation with RVR. Recent CVA. CAD with previous bypass grafting. History of COPD. Remote history of lung cancer. Former tobacco use. Plan: Plan dated 12/17/2020. The patient continues on antibiotics, Decadron, and vitamin supplements. Medications, labs, and x-rays all reviewed. The patient does not appear to be having any significant distress. He remains on 3 L nasal cannula with saturations in the mid 90s. Additional recommendations and suggestions are forthcoming. We'll continue to follow make recommendations were appropriate. Prognosis is guarded. CODE STATUS should be addressed by the primary service. The patient is 89 years of age. Time with Patient: Less than 30
--- NOTE | 2020-12-17 22:58 | PN ---
PROGRESS NOTE DATE OF SERVICE: 12/17/2020 REASON FOR FOLLOWUP: Pneumonia, likely aspiration pneumonia. INTERVAL HISTORY: Patient is afebrile. The patient is breathing comfortably. The patient denies having any chest pain. No shortness of breath. Did have a cough, not bringing up any sputum. No nausea. No vomiting. No abdominal pain or diarrhea. PHYSICAL EXAMINATION: Blood pressure 197/58 with a pulse of 80, temperature 97.6. He is 97% on 3 L nasal cannula. General description is an elderly male lying in bed in no distress. Respiratory system: Unlabored breathing. Clear to auscultation anteriorly. Heart S1, S2. Regular rate and rhythm. Abdomen soft. No tenderness. LABS: Hemoglobin is 7.1, white count 18.1, BUN of 97, creatinine is 2.67 DIAGNOSTIC IMPRESSION AND PLAN: Patient admitted to the hospital with increased shortness of breath and cough concerning for pneumonia, likely aspiration etiology. The patient did have significant elevated procalcitonin likely bacterial pneumonia rather than viral, to continue with Unasyn to which the patient still has responded. Try to obtain a sputum and continue supportive care. MMODL / IJN: [id number] / MTDD
--- NOTE | 2020-12-18 09:02 | CDI ---
Documentation Clarification Form Date: 12/18/2020 08:35:41 AM From: Oneyda Welsh RN, CCDS Admit Date: 12/15/2020 07:30:00 PM Patient Name: Fitz Hurtado Visit Number: [id number] ATTENTION: The Clinical Documentation Specialists (CDI) and [facility] Coding Staff appreciate your assistance in clarifying documentation. Please respond to the clarification below the line at the bottom and electronically sign. The CDI & [facility] Coding staff will review the response and follow-up if needed. Please note: Queries are made part of the Legal Health Record. If you have any questions, please contact the author of this message via ITS. Dr. Margaret Boss Malnutrition is documented 12/16 H&P. Additional clarification regarding the severity of malnutrition is requested. History/Risk Factors: Covid 19 pneumonia, right aspiration pneumonia, sepsis, COPD, HTN, HLD, Atrial fib RVR, CAD, OA, Seizure disorder, Lung CA, Anemia Clinical Indicators: 12/16 H&P: "history of protein calorie malnutrition." 12/15 ED note: Chronically ill-appearing cachectic male in moderate respiratory distress BMI 16. Temporal wasting is noted " Current BMI: 16.4 Insufficient energy intake: Pt on Bipap with respiratory distress and acute hypoxic respiratory failure. 12/18 Dietary assessment: Weight Loss: 14-23 lb. 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 was unable to be physically assessed d/t Covid) Treatment: Dietary Consult: completed 12/17/2020 Supplements: Ensure Enlive BID Lab monitoring: Am daily Orazinc 220 mg Po QD 12/15 1.5 L IVF bolus 0.9% NS Megace at home Please clarify the type of malnutrition, if known: [ ] Mild Protein-Calorie Malnutrition [ ] Moderate Protein-Calorie Malnutrition [ ] Severe Protein-Calorie Malnutrition [ ] Other condition, please specify [ ] Unable to Determine (Template Last Revised: October 2020) moderate protein-calorie malnutrition MTDD
[2020-12-18 09:03] LABS: Basophils % (A) 0 %; Eosinophils % (A) 0 %; HCT 25.6 % (39.0-53.0); HGB 7.8 gm/dL (13.0-17.5); Lymphocytes # (A) 0.1 k/uL (1.0-4.8); Lymphocytes % (A) 1 %; MCH 26.6 pg (25.0-35.0); MCHC 30.6 g/dL (31.0-37.0); MCV 86.8 fL (80.0-100.0); Monocytes # (A) 0.3 k/uL (0-1.0); Monocytes % (A) 2 %; Neutrophils # (A) 14.1 k/uL (1.3-7.7); Neutrophils % (A) 96 %; Platelet Count 121 k/uL (150-450); RBC 2.95 m/uL (4.30-5.90); RDW 15.3 % (11.5-15.5); WBC 14.6 k/uL (3.8-10.6)
[2020-12-18 09:13] LABS: Albumin 2.6 g/dL (3.5-5.0); Calcium 8.2 mg/dL (8.4-10.2); Potassium 3.8 mmol/L (3.5-5.1); Total Bilirubin 0.4 mg/dL (0.2-1.3); Total Protein 5.2 g/dL (6.3-8.2)
--- NOTE | 2020-12-18 09:28 | CDI ---
Documentation Clarification Form Date: 12/18/2020 09:13:35 AM From: Oneyda Welsh RN, CCDS Admit Date: 12/15/2020 07:30:00 PM Patient Name: Fitz Hurtado Visit Number: [id number] ATTENTION: The Clinical Documentation Specialists (CDI) and [facility] Coding Staff appreciate your assistance in clarifying documentation. Please respond to the clarification below the line at the bottom and electronically sign. The CDI & [facility] Coding staff will review the response and follow-up if needed. Please note: Queries are made part of the Legal Health Record. If you have any questions, please contact the author of this message via ITS. Dr. Dilan Mai Atrial Fibrillation RVR is documented in ED, H&P, and Consults. Additional clarification regarding the type of atrial fibrillation is requested. History/Risk Factors: CAD, HTN, COPD, lung ca, anemia, Covid 19 pneumonia, aspiration pneumonia, sepsis Clinical Indicators: 12/16 Nephrology consult: "Atrial fibrillation, currently maintained on Cardizem drip." 12/16 Cardiology consult & 12/17 cardiology progress notes: "Initial EKG was called atrial fibrillation however appears to have regular P waves, sinus rhythm with frequent PACs. ASSESSMENT: Do not see evidence on EKG with atrial fibrillation." 12/17 Pulmonary Progress Note: "Acute hypoxemic respiratory failure, likely secondary to acute COVID 19 pneumonia, but also related to underlying atrial fibrillation/RVR. Atrial fibrillation with RVR." EKG/telemetry: see cardiology note of EKG interpretation Treatment: 12/15-12/16 Cardizem Gtt @ 10 mg/hr. Iv Heparin Gtt low intensity protocol 12/17 Lopressor 25 mg PO BID Please clarify the type of atrial fibrillation, if known: [ ] Atrial Fib has been ruled out [ ] Permanent [ ] Paroxysmal [ ] Persistent [ ] Other, please specify [ ] Unable to determine (Template Last Revised: December 2020) As already documented when I saw patient, no evidence of Afib. MTDD
--- NOTE | 2020-12-18 09:59 | P.PN ---
Subjective Progress Note Date: 12/17/20 Fitz Blue, is an 89 year old male who presented to [facility] emergency room with a chief complaint of worsening shortness of breath, patient stated that he started having shortness of breath on the day of presentation that progressed to significant breathing difficulty EMS were sushma smith, they found patient to be in significant respiratory distress he was started on nonrebreather mask and was treated with IV Solu-Medrol and DuoNeb updrafts and was brought in to [facility] emergency room. In the emergency room patient was evaluated, his vital examination on presentation revealed a temperature of 98.6 pulse 142 respiration 18 blood pressure 99/78 pulse ox 94% on room air, laboratory data on presentation revealed a white blood count of 13.5 hemoglobin 10.5 platelet count 134 d-dimer 3.88, sodium 140 potassium 5.3 chloride 106 CO2 16 BUN 19 9 creatinine 5.09 glucose level was 136 plasma lactic acid was 3.5 troponin level was elevated at 0.105 C-reactive p rotein 58.6 Procalcitonin more than 100 and coronavirus PCR was positive. Chest x-ray was done in the emergency room and revealed bilateral interstitial pneumonia, cardiomegaly, small right pleural effusion and pleural reaction , EKG was done in the emergency room and revealed atrial fibrillation with rapid ventricular response and nonspecific ST abnormality . Patient was admitted to telemetry floor for further evaluation and treatment. Patient was admitted to [facility] in August 2020 after having a stroke, he was discharged to [facility] for rehabilit ation and was discharged home about 6 weeks ago. His past medical history is also significant for hypertension, hyperlipidemia, coronary artery disease with history of coronary artery bypass graft surgery, history of COPD, history of pulmonary hypertension, history of multiple lumbar compression vertebral fractures, history of anemia, history of carotid stenosis, history of osteoarthritis, and history of protein calorie malnutrition. On 12/17/2020 patient was seen and examined on the medical floor he is alert and oriented 3 in no apparent distress he is complaining of nausea otherwise he de nies any complaints there is no fever or chills no headache or dizziness no chest pain no shortness of breath no cough no vomiting no abdominal pain no diarrhea no blood in the stools no burning with urination no frequency or urgency and no hematuria. Kidney function has improved significantly since yesterday, otherwise no change in condition. Objective - Vital Signs Vital signs: Vital Signs Temp 97.6 F 12/17/20 08:00 Pulse 100 12/17/20 08:00 Resp 20 12/17/20 08:00 BP 112/55 12/17/20 08:00 Pulse Ox 95 12/17/20 08:00 Intake & Output 12/16/20 12/17/20 12/17/20 18:59 06:59 18:59 Intake Total 0 1045 Output Total 700 350 Balance 0 345 -350 Weight 50.5 kg Intake: Intake, IV Titration 445 Amount Dextrose 5% in Water 1, 320 000 ml @ 80 mls/hr IV . [id number] YAHIR with Sodium Bicarb (1 Meq/ml) 150 ml Rx#:[id number] Diltiazem 125 mg In 125 Sodium Chloride 0.9% 100 ml @ Per Protocol IV .Q0M YAHIR Rx#:[id number] Oral 0 600 Output: Urine 700 350 Other: # Voids 3 - Exam In general patient is alert and oriented ?-3 in no distress HEENT head normocephalic and atraumatic Neck is supple no JVD no goiter no lymphadenopathy no carotid bruit Chest examination is clear to auscultation no crackles no wheezing Cardiac exam reveals regular heart sounds S1 and S2 no gallops no murmurs Abdomen is soft nontender no organomegaly with normal bowel sounds Extremity exam reveals no edema no cyanosis or clubbing Neurological examination reveals no gross focal deficits - Labs CBC & Chem 7: 12/18/20 07:47 12/18/20 07:47 Labs: Abnormal Lab Results - Last 24 Hours (Table) 12/17/20 12/17/20 12/17/20 Range/Units 07:26 07:26 07:26 WBC 15.8 H (3.8-10.6) k/uL RBC 2.90 L (4.30-5.90) m/uL Hgb 7.9 L (13.0-17.5) gm/dL Hct 24.8 L (39.0-53.0) % Plt Count 120 L (150-450) k/uL Neutrophils # 15.2 H (1.3-7.7) k/uL Lymphocytes # 0.2 L (1.0-4.8) k/uL APTT 37.8 H (22.0-30.0) sec Potassium 3.4 L (3.5-5.1) mmol/L BUN 97 H (9-20) mg/dL Creatinine 2.67 H (0.66-1.25) mg/dL Glucose 144 H (74-99) mg/dL Calcium 7.9 L (8.4-10.2) mg/dL Total Protein 5.3 L (6.3-8.2) g/dL Albumin 2.7 L (3.5-5.0) g/dL Microbiology - Last 24 Hours (Table) 12/15/20 18:16 Blood Culture - Preliminary Blood No Growth after 24 hours 12/15/20 18:16 Blood Culture - Preliminary Blood No Growth after 24 hours Assessment and Plan Plan: 1. COVID-19 infection 2. Bilateral interstitial pneumonia, possibly related to COVID-19, however bacterial superimposed infection cannot be ruled out 3. Evidence of sepsis, with leukocytosis, hypotension, and elevated lactic acid 4. Acute on chronic renal failure, creatinine on admission in August was 1.5 nephrology consultation requested 5. Severe hyperkalemia 6. Underlying history of COPD 7. Recent history of stroke in August 2020 8. Underlying history of hypertension 9. Underlying history of hyperlipidemia 10. Underlying history of coronary artery disease with previous history of coronary artery bypass graft surgery 11. Underlying history of multiple lumbar compression vertebral fractures. 12. Previous history of anemia and history of GI bleed At this time patient is admitted to telemetry floor He received IV fluid boluses He was started on IV heparin and IV Cardizem drip He was started on IV antibiotic Rocephin and Zithromax He was started on steroids prednisone 40 mg daily Pulmonary, nephrology, infectious disease and cardiology consultation requested. Prognosis is poor due to advanced age, severity of illness, and multiple underlying medical conditions
[2020-12-18] MEDS: DEXAMETHASONE SOD PHOSPHATE 10 MG/ML 1 ML VIAL IV SCH (10:00)
[2020-12-18] MEDS: METOPROLOL TARTRATE 25 MG TAB PO SCH ×2 (10:00→21:05)
[2020-12-18] MEDS: ZINC SULFATE 220 MG CAP PO SCH (10:00)
[2020-12-18] MEDS: AMPICILLIN-SULBACTAM 3 GM in SODIUM CHLORIDE 0.9% 100 ML IVPB SCH ×2 (10:00→21:06)
[2020-12-18] MEDS: ASPIRIN 81 MG PO SCH (10:00)
[2020-12-18] MEDS: CHOLECALCIFEROL 25 MCG (1000 IU) TABLET PO SCH (10:00)
[2020-12-18] MEDS: ASCORBIC ACID 500 MG TAB PO SCH (10:00)
[2020-12-18] MEDS: LACTATED RINGERS 1,000 ML IV SCH (11:17)
--- NOTE | 2020-12-18 11:50 | PN ---
PROGRESS NOTE Patient is seen for followup for acute kidney injury associated with volume depletion underlying COVID pneumonia. Patient is overall doing better. His renal function has improved with creatinine down to 2.1 from 5.0 on initial admission. He currently has been voiding. This morning he is comfortable. He is sleeping but arousable. He does not have much edema. Vital signs shows blood pressure 119/62, heart rate 98 per minute. Patient is afebrile. LABS: Labs are reviewed. Labs show sodium 141, potassium 3.8, chloride 108, BUN 76, creatinine 2.19, hemoglobin 7.8 g/dL. ASSESSMENT: 1. Acute kidney injury, acute tubular necrosis as well as an element of hypovolemia currently improving. Patient is maintained on IV fluids. He is tolerating oral intake. We will continue with fluids for now. 2. COVID pneumonia, maintained on Decadron. 3. Volume depletion, currently improved. 4. Lactic acidosis, status post IV fluids and now improved. 5. Severe metabolic acidosis associated with renal failure as well as lactic acidosis status post bicarb drip. 6. Hyperkalemia on initial admission, now resolved. 7. Anemia no active bleeding noted. Hemoglobin is at 7.8. Check iron profile if not done. PLAN: Continue IV fluids. Check iron profile. Avoid nephrotoxic agents. Repeat labs in a.m. MMODL / IJN: [id number] /
[2020-12-18] MEDS: ENOXAPARIN 30 MG/0.3 ML SYRINGE SQ SCH (12:04)
[2020-12-18] MEDS: ONDANSETRON 4 MG/2 ML VIAL IVP PRN (12:31)
--- NOTE | 2020-12-18 13:42 | P.PN ---
Subjective Progress Note Date: 12/18/20 Principal diagnosis: COPD exacerbation, atrial fibrillation with RVR, pneumonia. This is a pleasant 89-year-old gentleman who follows with Dr. Boss as his primary care provider. He has history of hypertension, CVA, coronary artery disease with previous coronary artery bypass grafting, COPD, seizure disorder, previous smoker, lung cancer. He presented to the emergency room yesterday with complaints of increasing shortness of breath, chest tightness and wheezing. He was found to be in atrial fibrillation with a rapid ventricular response. Chest x-ray revealed bilateral interstitial pneumonia. Cardiomegaly. Small right pleural effusion and pleural reaction at the right lung base. White count 17.4. Hemoglobin 9.1. Sodium 139. Potassium 5.4. Creatinine 3.75. Presenting creatinine was 5.09. Pro-calcitonin greater than 100. Troponin 0.105. C- reactive protein 58.6. Andres virus positive. He is seen today in consultation on the selective care unit. The patient is a poor historian. Unable to determine when his symptoms started. He is currently resting fairly comfortably in bed. Awake and alert in no acute distress. Maintaining O2 saturations in the high 90s on 3 L/m per nasal cannula. Afebrile. Slightly tachycardic. Ultrasound of the kidneys revealed no hydronephrosis or nephrolithiasis bilaterally. His initiated on a Cardizem drip at 10 mg per hour, heparin drip and antibiotics in the form of ceftriaxone and azithromycin. His initiated on Decadron 10 mg IV daily. Progress note dated 12/17/2020. 89-year-old black male, seen by our nurse practitioner yesterday in consultation. The patient has a history of hypertension, CVA, coronary disease, previous bypass grafting, COPD, seizure disorder, and lung cancer. The patient apparently presented to the emergency department with complaints of increasing shortness of breath, chest tightness, and wheezing. He was found to have atrial fibrillation with RVR, and also was positive for coronavirus infection. The patient seems be recently comfortable this time. He is on 3 L. Saturations are 97%. Heart rate 86. Respiratory rate 18. No audible wheezing, use of accessory muscles, or conversational dyspnea. The patient is not a particularly good historian. White count 15.8, hemoglobin 7.9, hematocrit 24.8, and platelet count 120,000. PTT is 37.8. Sodium 141, potassium 3.4, chlorides 104, CO2 25, anion gap 12, BUN 97, and creatinine 2.67. Initial lactic acid 2.2. Repeat lactic acid 1.1. Chest x-ray shows bilateral interstitial pneumonia with cardiomegaly. There is a small right-sided pleural effusion. Progress note dated 12/18/2020. 89-year-old black male, seen in consultation 2 days ago. I saw the patient yesterday in follow-up. The patient has a history of essential hypertension, CVA, coronary artery disease, previous bypass grafting, COPD, seizure disorder, and lung cancer. The patient presented to the emergency department with complaints of increasing shortness of breath, chest tightness and wheezing, and was found to have atrial fibrillation with RVR, and also tested positive for coronavirus infection. Currently, the patient appears to be relatively comfortable. He is on 3 L nasal cannula, and his saturations are 100%. Blood pressure 112/72, heart rate 89, respiratory rate 18, and his temperature is 97.8. Labs show a white count of 14.6, hemoglobin 7.8, hematocrit 25.6, and platelet count 121,000. D-dimer is 2.0. Sodium 141, potassium 3.8, chlorides 108, CO2 26, anion gap 7, BUN 76, creatinine 2.19. No recent chest x-ray to review. Objective - Vital Signs Vital signs: Vital Signs Temp 97.8 F 12/18/20 11:57 Pulse 89 12/18/20 11:57 Resp 18 12/18/20 11:57 BP 112/72 12/18/20 11:57 Pulse Ox 100 12/18/20 11:57 Intake & Output 12/17/20 12/18/20 12/18/20 18:59 06:59 18:59 Intake Total 990 480 Output Total 450 590 Balance -450 400 480 Weight 50.5 kg Intake: Intake, IV Titration 750 Amount Ampicillin-Sulbactam 3 gm 100 In Sodium Chloride 0.9% 100 ml @ 200 mls/hr IVPB Q12HR [facility] Rx#:[id number] Lactated Ringers 1,000 ml 650 @ 75 mls/hr IV .[id number] [facility] Rx#:[id number] Oral 240 480 Output: Urine 450 590 Other: # Voids 1 # Bowel Movements 1 - Exam No acute distress, poor historian, currently on 3 L nasal cannula, with saturations at 95-98%. No obvious respiratory distress. HEENT examination is grossly unremarkable. Neck supple. Full range of motion. No adenopathy thyromegaly or neck vein distention. Cardiovascular examination reveals regular rhythm rate. S1-S2 normal. No S3 or S4. No discernible murmur noted. Heart rate 89 bpm. Lungs reveal scattered rhonchi and crackles. Breath sounds equal bilaterally. He is not taking deep breaths. No distinct wheezes noted. Abdomen soft bowel sounds are heard. No masses or tenderness. Extremities are intact. No cyanosis clubbing or edema. Skin is without rash or lesion. Neurologic examination is brief but nonfocal. - Labs CBC & Chem 7: 12/18/20 07:47 12/18/20 07:47 Labs: Abnormal Lab Results - Last 24 Hours (Table) 12/18/20 12/18/20 12/18/20 Range/Units 07:47 07:47 07:47 WBC 14.6 H (3.8-10.6) k/uL RBC 2.95 L (4.30-5.90) m/uL Hgb 7.8 L (13.0-17.5) gm/dL Hct 25.6 L (39.0-53.0) % MCHC 30.6 L (31.0-37.0) g/dL Plt Count 121 L (150-450) k/uL Neutrophils # 14.1 H (1.3-7.7) k/uL Lymphocytes # 0.1 L (1.0-4.8) k/uL D-Dimer 2.00 H (<0.60) mg/L FEU Chloride 108 H (98-107) mmol/L BUN 76 H (9-20) mg/dL Creatinine 2.19 H (0.66-1.25) mg/dL Glucose 120 H (74-99) mg/dL Calcium 8.2 L (8.4-10.2) mg/dL Total Protein 5.2 L (6.3-8.2) g/dL Albumin 2.6 L (3.5-5.0) g/dL Microbiology - Last 24 Hours (Table) 12/15/20 18:16 Blood Culture - Preliminary Blood No Growth after 48 hours 12/15/20 18:16 Blood Culture - Preliminary Blood No Growth after 48 hours Assessment and Plan Assessment: Acute hypoxemic respiratory failure, likely secondary to acute COVID 19 pneumonia, but also related to underlying atrial fibrillation/RVR. Possible aspiration pneumonia, right lung. Elevated inflammatory markers secondary to coronavirus infection. Acute renal failure. Atrial fibrillation with RVR. Recent CVA. CAD with previous bypass grafting. History of COPD. Remote history of lung cancer. Former tobacco use. Plan: Plan dated 12/17/2020. The patient continues on antibiotics, Decadron, and vitamin supplements. Medications, labs, and x-rays all reviewed. The patient does not appear to be having any significant distress. He remains on 3 L nasal cannula with saturations in the mid 90s. Additional recommendations and suggestions are forthcoming. We'll continue to follow make recommendations were appropriate. Prognosis is guarded. CODE STATUS should be addressed by the primary service. The patient is 89 years of age. Plan dated 12/18/2020. The patient will have a chest x-ray tomorrow. No additional recommendations are made. The patient remains on Decadron, and vitamin supplements. He also remains on antibiotics. His saturations are in the mid to high 90s on 3 L nasal cannula. CODE STATUS should be addressed by the primary service. We will continue to follow and make recommendations were appropriate. Prognosis is guarded given his age, and multiple medical problems. Time with Patient: Less than 30
--- NOTE | 2020-12-18 14:08 | PN ---
PROGRESS NOTE DATE OF SERVICE: 12/18/2020 REASON FOR FOLLOWUP: Pneumonia. INTERVAL HISTORY: The patient is currently afebrile. The patient is breathing more comfortably. Denies having any chest pain. Cough has decreased intensity, nonproductive. No abdominal pain. No diarrhea. PHYSICAL EXAMINATION: Blood pressure 112/72 with a pulse of 89, temperature is 97.8. He is 100% on 3 L nasal cannula. General description is an elderly male lying in bed in no distress. RESPIRATORY SYSTEM: Unlabored breathing, decreased intensity of breath sounds. No wheeze. HEART: S1, S2. Regular rate and rhythm. ABDOMEN: Soft, no tenderness. LABS: Hemoglobin 7.8, white count 14.6, BUN of 76, creatinine is 2.19. Blood culture repeat has been negative. DIAGNOSTIC IMPRESSION AND PLAN: The patient admitted to the hospital with shortness of breath and cough with evidence of pneumonia, high procalcitonin, likely bacterial/aspiration. Patient is covered with Unasyn to continue and monitor clinical course closely. MMODL / IJN: [id number] /
[2020-12-18 18:33] LABS: % Iron Saturation 6.86 (15.00-50.00)
[2020-12-19] MEDS: LACTATED RINGERS 1,000 ML IV SCH ×3 (03:42→20:48)
[2020-12-19 08:01] LABS: Basophils % (A) 0 %; Eosinophils % (A) 0 %; HCT 23.6 % (39.0-53.0); HGB 7.7 gm/dL (13.0-17.5); Lymphocytes # (A) 0.2 k/uL (1.0-4.8); Lymphocytes % (A) 1 %; MCH 28.6 pg (25.0-35.0); MCHC 32.7 g/dL (31.0-37.0); MCV 87.2 fL (80.0-100.0); Mean Platelet Volume 10.2; Monocytes # (A) 0.2 k/uL (0-1.0); Monocytes % (A) 2 %; Neutrophils # (A) 11.8 k/uL (1.3-7.7); Neutrophils % (A) 95 %; Platelet Count 113 k/uL (150-450); WBC 12.4 k/uL (3.8-10.6)
[2020-12-19 08:18] LABS: Reticulocyte % 0.7 % (0.5-2.0)
[2020-12-19 08:25] LABS: Albumin 2.7 g/dL (3.5-5.0); Calcium 8.5 mg/dL (8.4-10.2); Total Bilirubin 0.4 mg/dL (0.2-1.3); Total Protein 5.1 g/dL (6.3-8.2)
[2020-12-19] MEDS: ENOXAPARIN 30 MG/0.3 ML SYRINGE SQ SCH (10:24)
[2020-12-19] MEDS: AMPICILLIN-SULBACTAM 3 GM in SODIUM CHLORIDE 0.9% 100 ML IVPB SCH ×2 (10:24→20:48)
[2020-12-19] MEDS: DEXAMETHASONE SOD PHOSPHATE 10 MG/ML 1 ML VIAL IV SCH (10:24)
[2020-12-19] MEDS: ZINC SULFATE 220 MG CAP PO SCH (10:25)
[2020-12-19] MEDS: ASCORBIC ACID 500 MG TAB PO SCH (10:25)
[2020-12-19] MEDS: ASPIRIN 81 MG PO SCH (10:25)
[2020-12-19] MEDS: METOPROLOL TARTRATE 25 MG TAB PO SCH ×2 (10:25→20:47)
[2020-12-19] MEDS: CHOLECALCIFEROL 25 MCG (1000 IU) TABLET PO SCH (10:25)
--- NOTE | 2020-12-19 10:53 | XR ---
EXAMINATION TYPE: XR chest 1V portable DATE OF EXAM: 12/19/2020 COMPARISON: Chest x-ray 12/15/2020, chest x-ray 01/13/2018 HISTORY: Covid 19, shortness of breath and cough TECHNIQUE: Single frontal view of the chest is obtained. FINDINGS: Patchy bilateral airspace disease, prominence interstitium again noted. No evident pneumot horax. There is some thickening along the right costophrenic angle, right lateral chest margin, diffi cult to exclude small effusion. Heart remains enlarged. Aorta is dense. IMPRESSION: Correlate to exclude congestive heart failure in a patient with pre-existing COPD, pneum onia. There may be chronic pleural reaction. There is cardiomegaly.
--- NOTE | 2020-12-19 11:04 | PN ---
PROGRESS NOTE Patient is seen for followup for acute kidney injury on top of chronic kidney disease. Patient was admitted with COVID pneumonia. He is currently doing better. He is comfortable, awake, not in any acute distress. PHYSICAL EXAMINATION: Blood pressure was 116/60, heart rate 99 per minute. He is afebrile. Examination shows no significant edema lower extremities. The rest of the exam not performed. LABS: Labs show sodium 141, potassium 4.0, chloride 107, BUN 69, creatinine 2.0, hemoglobin 7.7 g/dL. ASSESSMENT: 1. Acute kidney injury prerenal currently improved. Serum creatinine close to baseline. 2. COVID pneumonia, maintained on Decadron. 3. Volume depletion, now improved. 4. Acute hypoxic respiratory failure on initial admission, currently improved, maintained on 3 L nasal cannula. 5. Atrial fibrillation with rapid ventricular response. 6. Possible aspiration. PLAN: Decrease IV fluids. Encourage increased oral intake. MMODL / IJN: [id number] /
--- NOTE | 2020-12-19 11:54 | P.CONS ---
History of Present Illness - Reason for Consult Consult date: 12/19/20 Anemia Requesting physician: Margaret Boss - Chief Complaint Shortness of breath, chest tightness - History of Present Illness This is an 89-year-old male with multiple medical comorbidities including coronary artery disease, pulmonary hypertension, hypertension, hyperlipidemia, gout and anemia presented to the emergency department by EMS for complaints of increased shortness of breath, wheezing, and chest pressure 4 days ago. He was diagnosed with Covid 19 infection. Initially he presented with hemoglobin of 10.5 on admission and has dropped over the last several days. The patient has no signs or symptoms of GI bleed. He was recently seen earlier this year for weakness in his extremities and gastroenterology was consulted for anemia, again the patient had no signs or symptoms of GI bleed at that time. Patient's anemia was felt to be multifactorial and secondary to chronic disease in the setting of chronic kidney disease. He underwent an EGD in evaluation of his anemia at [facility] on 08/21/2020 with findings of a small hiatal hernia, gastritis and LA grade B esophagitis. Currently the patient is seen lying in bed denying any signs or symptoms of GI bleed. No abdominal pain at this time. Today's labs include WBC 14.6, hemoglobin 7.8, hematocrit 25.6, platelet count 121,000, INR 1.1, iron studies were completed as well iron 12, TIBC 175, saturation 6.86. He said heparin drip, that has been discontinued. Hemoccult stool ordered, has not been collected yet. Review of Systems REVIEW OF SYSTEMS: CARDIOPULMONARY: No chest pain, positive for shortness of breath. Gastrointestinal: No epigastric pain, abdominal pain. No nausea or vomiting. No hematemesis, coffee-ground emesis. No rectal bleeding, or melena. GENITOURINARY: No dysuria or hematuria. MUSCULOSKELETAL: Reports normal range of motion., Joint pain. SKIN: No rashes. No jaundice. ENDOCRINE: Unremarkable. PSYCHIATRIC: Unremarkable. NEUROLOGY: No change in mental status. Denies dizziness, headache. ENT: Vision unremarkable. CONSTITUTIONAL: No recent weight loss. No fever, chills, night sweats. Past Medical History Past Medical History: Coronary Artery Disease (CAD), Cancer, COPD, GI Bleed, Osteoarthritis (OA), Seizure Disorder Additional Past Medical History / Comment(s): lung ca, anemia, seizures 20 years ago History of Any Multi-Drug Resistant Organisms: None Reported Past Surgical History: Coronary Bypass/CABG Past Anesthesia/Blood Transfusion Reactions: No Reported Reaction Past Psychological History: No Psychological Hx Reported Smoking Status: Former smoker Past Alcohol Use History: Rare Past Drug Use History: None Reported - Past Family History Father Family Medical History: Cancer Additional Family Medical History / Comment(s): lung cancer Sister(s) Family Medical History: Cancer Medications and Allergies Home Medications Medication Instructions Recorded Confirmed Type Metoprolol Tartrate [Lopressor] 25 mg PO TID 01/13/18 12/15/20 History Furosemide [Lasix] 20 mg PO DAILY 08/25/20 12/15/20 History Megestrol [Megace] 400 mg PO BID 08/25/20 12/15/20 History Zolpidem [Ambien] 10 mg PO HS PRN 08/25/20 12/15/20 History Pantoprazole [Protonix] 40 mg PO [id number] tablet. 08/31/20 12/15/20 Rx hydrALAZINE HCL [Apresoline] 25 mg PO BID tab 08/31/20 12/15/20 Rx Allergies Allergy/AdvReac Type Severity Reaction Status Date / Time No Known Allergies Allergy Verified 12/15/20 19:29 Physical Exam Vitals: Vital Signs Temp Pulse Resp BP Pulse Ox 12/19/20 04:00 99 20 116/60 94 L 12/19/20 02:00 94 18 12/19/20 00:00 94 18 112/67 95 12/18/20 20:00 98.8 F 86 20 118/62 97 12/18/20 16:00 98.0 F 97 18 104/64 98 12/18/20 14:00 89 18 12/18/20 11:57 97.8 F 89 18 112/72 100 Intake and Output 12/18/20 12/19/20 12/19/20 22:59 06:59 14:59 Intake Total 240 240 240 Output Total 575 300 300 Balance -335 -60 -60 Intake: Oral 240 240 240 Output: Urine 575 300 300 Other: # Voids 2 # Bowel Movements 2 Weight 54.5 kg General appearance: The patient is alert, oriented, appears in no acute distress. Thin. HET: Head is normocephalic and atraumatic. Pupils are equal and reactive. Oropharynx is clear without lesions. Neck: Supple without lymphadenopathy. Trachea midline. Heart: S1 S2. Regular rate and rhythm. Lungs: Scattered rhonchi and crackles. Abdomen: Soft, nontender, nondistended with bowel sounds. No peritoneal signs. No palpable organomegaly or masses. Extremities: Normal skin color and turgor. No pedal edema. Neurological: No focal deficits. Alert and oriented 3. Results CBC & Chem 7: 12/19/20 07:16 12/19/20 07:16 Labs: Abnormal Lab Results - Last 24 Hours (Table) 12/18/20 12/18/20 12/19/20 Range/Units 07:47 07:47 07:16 WBC 12.4 H (3.8-10.6) k/uL RBC 2.70 L (4.30-5.90) m/uL Hgb 7.7 L (13.0-17.5) gm/dL Hct 23.6 L (39.0-53.0) % Plt Count 113 L (150-450) k/uL Neutrophils # 11.8 H (1.3-7.7) k/uL Lymphocytes # 0.2 L (1.0-4.8) k/uL D-Dimer 2.00 H (<0.60) mg/L FEU BUN (9-20) mg/dL Creatinine (0.66-1.25) mg/dL Glucose (74-99) mg/dL Iron 12 L (65-175) ug/dL TIBC 175 L (228-460) ug/dL % Saturation 6.86 L (15.00-50.00) Total Protein (6.3-8.2) g/dL Albumin (3.5-5.0) g/dL 12/19/20 Range/Units 07:16 WBC (3.8-10.6) k/uL RBC (4.30-5.90) m/uL Hgb (13.0-17.5) gm/dL Hct (39.0-53.0) % Plt Count (150-450) k/uL Neutrophils # (1.3-7.7) k/uL Lymphocytes # (1.0-4.8) k/uL D-Dimer (<0.60) mg/L FEU BUN 69 H (9-20) mg/dL Creatinine 2.09 H (0.66-1.25) mg/dL Glucose 111 H (74-99) mg/dL Iron (65-175) ug/dL TIBC (228-460) ug/dL % Saturation (15.00-50.00) Total Protein 5.1 L (6.3-8.2) g/dL Albumin 2.7 L (3.5-5.0) g/dL Microbiology - Last 24 Hours (Table) 12/15/20 18:16 Blood Culture - Preliminary Blood No Growth after 72 hours 12/15/20 18:16 Blood Culture - Preliminary Blood No Growth after 72 hours Assessment and Plan (1) Anemia, normocytic normochromic Narrative/Plan: 89-year-old male with multiple medical comorbidities admitted for shortness of breath and Covid-19 infection. Patient was noted to have anemia on initial hospitalization, with a continued drop in his hemoglobin. He reports his last colonoscopy was approximately one year ago however reports are not available at this time. He also underwent an EGD in August of this year at [facility] with findings including a small hiatal hernia, gastritis, and LA grade B esophagitis as part of a workup for his anemia at that time. He denies any signs or symptoms of GI bleeding. Anemia is likely multifactorial related to chronic disease and acute on chronic renal failure. Current Visit: No Status: Acute Code(s): D64.9 - ANEMIA, UNSPECIFIED SNOMED Code(s): 87965743 (2) Acute on chronic renal failure Current Visit: Yes Status: Acute Code(s): N17.9 - ACUTE KIDNEY FAILURE, UNSPECIFIED; N18.9 - CHRONIC KIDNEY DISEASE, UNSPECIFIED SNOMED Code(s): 868847060 (3) COVID-19 Current Visit: Yes Status: Acute Code(s): U07.1 - COVID-19 SNOMED Code(s): 777766822 (4) COPD (chronic obstructive pulmonary disease) Current Visit: Yes Status: Acute Code(s): J44.9 - CHRONIC OBSTRUCTIVE PULMONARY DISEASE, UNSPECIFIED SNOMED Code(s): 19034890 Plan: Continue symptomatic and supportive care Iron studies reviewed Stool Hemoccult ordered IV iron ordered Ferritin ordered Daily CBC, transfuse for hemoglobin less than 7 Consider hematology consult No plans for endoscopic evaluation at this time, patient recently had endoscopic evaluation earlier this year. Thank you for this consultation, and allowing us take part in the plan of care of your patient Dr. Hall I agree with the dictator's note, documented as a scribe by Sobia Loza.
--- NOTE | 2020-12-19 14:02 | P.PN ---
Subjective Progress Note Date: 12/19/20 Principal diagnosis: COPD exacerbation, A. fib with RVR, pneumonia This is a pleasant 89-year-old gentleman who follows with Dr. Boss as his primary care provider. He has history of hypertension, CVA, coronary artery disease with previous coronary artery bypass grafting, COPD, seizure disorder, previous smoker, lung cancer. He presented to the emergency room yesterday with complaints of increasing shortness of breath, chest tightness and wheezing. He was found to be in atrial fibrillation with a rapid ventricular response. Chest x-ray revealed bilateral interstitial pneumonia. Cardiomegaly. Small right pleural effusion and pleural reaction at the right lung base. White count 17.4. Hemoglobin 9.1. Sodium 139. Potassium 5.4. Creatinine 3.75. Presenting crea tinine was 5.09. Pro-calcitonin greater than 100. Troponin 0.105. C-reactive protein 58.6. Andres virus positive. He is seen today in consultation on the selective care unit. The patient is a poor historian. Unable to determine when his symptoms started. He is currently resting fairly comfortably in bed. Awake and alert in no acute distress. Maintaining O2 saturations in the high 90s on 3 L/m per nasal cannula. Afebrile. Slightly tachycardic. Ultrasound of the kidneys revealed no hydronephrosis or nephrolithiasis bilaterally. His initiated on a Cardizem drip at 10 mg per hour, heparin drip and antibiotics in the form of ceftriaxone and azithromycin. His initiated on Decadron 10 mg IV daily. Progress note dated 12/17/2020. 89-year-old black male, seen by our nurse practitioner yesterday in consultation. The patient has a history of hypertension, CVA, coronary disease, previous bypass grafting, COPD, seizure disorder, and lung cancer. The patient apparently presented to the emergency department with complaints of increasing shortness of breath, chest tightness, and wheezing. He was found to have atrial fibrillation with RVR, and also was positive for coronavirus infection. The patient seems be recently comfortable this time. He is on 3 L. Saturations are 97%. Heart rate 86. Respiratory rate 18. No audible wheezing, use of accessory muscles, or conversational dyspnea. The patient is not a particularly good historian. White count 15.8, hemoglobin 7.9, hematocrit 24.8, and platelet count 120,000. PTT is 37.8. Sodium 141, potassium 3.4, chlorides 104, CO2 25, anion gap 12, BUN 97, and creatinine 2.67. Initial lactic acid 2.2. Repeat lactic acid 1.1. Chest x-ray shows bilateral interstitial pneumonia with cardiomegaly. There is a small right-sided pleural effusion. Progress note dated 12/18/2020. 89-year-old black male, seen in consultation 2 days ago. I saw the patient yesterday in follow-up. The patient has a history of essential hypertension, CVA, coronary artery disease, previous bypass grafting, COPD, seizure disorder, and lung cancer. The patient presented to the emergency department with complaints of increasing shortness of breath, chest tightness and wheezing, and was found to have atrial fibrillation with RVR, and also tested positive for coronavirus infection. Currently, the patient appears to be relatively comforta ble. He is on 3 L nasal cannula, and his saturations are 100%. Blood pressure 112/72, heart rate 89, respiratory rate 18, and his temperature is 97.8. Labs show a white count of 14.6, hemoglobin 7.8, hematocrit 25.6, and platelet count 121,000. D-dimer is 2.0. Sodium 141, potassium 3.8, chlorides 108, CO2 26, anion gap 7, BUN 76, creatinine 2.19. No recent chest x-ray to review. The patient is seen today 12/19/2020 in follow-up on the cardiac floor. He is currently resting comfortably in bed. Awake, alert and in no acute distress. He is maintaining O2 saturation in the 90s on 3 L/m per nasal cannula. Lactated Ringer's at 75 ML's per hour. He's been afebrile. Hemodynamically stable. Chest x-ray reveals evidence of congestive heart failure and underlying COPD. Chronic pleural reaction. Blood cultures reveal no growth. White count 12.4. Hemoccult was 7.7. Platelets 113. Sodium 141. Potassium 4.0. Creatinine 2.09. ProBNP 36,700. He remains on Decadron, Lovenox, vitamin supplements. Antibiotics in the form of Unasyn. Objective - Vital Signs Vital signs: Vital Signs Temp 98.0 F 12/19/20 12:00 Pulse 96 12/19/20 13:22 Resp 16 12/19/20 13:22 BP 112/62 12/19/20 12:00 Pulse Ox 96 12/19/20 12:00 Intake & Output 12/18/20 12/19/20 12/19/20 18:59 06:59 18:59 Intake Total 1570 240 240 Output Total 325 550 300 Balance 1245 -310 -60 Weight 54.5 kg Intake: Intake, IV Titration 450 Amount Lactated Ringers 1,000 ml 450 @ 75 mls/hr IV .[id number] YAHIR Rx#:[id number] Oral 1120 240 240 Output: Urine 325 550 300 Other: # Voids 2 # Bowel Movements 2 - Exam No acute distress, pleasant 89-year-old gentleman, poor historian, currently on 3 L nasal cannula, with saturations at 96%. No obvious respiratory distress. HEENT examination is grossly unremarkable. Neck supple. Full range of motion. No adenopathy thyromegaly or neck vein distention. Cardiovascular examination reveals regular rhythm rate. S1-S2 normal. No S3 or S4. No discernible murmur noted. Heart rate 89 bpm. Lungs reveal scattered rhonchi and crackles. Breath sounds equal bilaterally. He is not taking deep breaths. No distinct wheezes noted. Abdomen soft bowel sounds are heard. No masses or tenderness. Extremities are intact. No cyanosis clubbing or edema. Skin is without rash or lesion. Neurologic examination is brief but nonfocal. - Labs CBC & Chem 7: 12/19/20 07:16 12/19/20 07:16 Labs: Abnormal Lab Results - Last 24 Hours (Table) 12/18/20 12/19/20 12/19/20 Range/Units 07:47 07:16 07:16 WBC 12.4 H (3.8-10.6) k/uL RBC 2.70 L (4.30-5.90) m/uL Hgb 7.7 L (13.0-17.5) gm/dL Hct 23.6 L (39.0-53.0) % Plt Count 113 L (150-450) k/uL Neutrophils # 11.8 H (1.3-7.7) k/uL Lymphocytes # 0.2 L (1.0-4.8) k/uL BUN 69 H (9-20) mg/dL Creatinine 2.09 H (0.66-1.25) mg/dL Glucose 111 H (74-99) mg/dL Iron 12 L (65-175) ug/dL TIBC 175 L (228-460) ug/dL % Saturation 6.86 L (15.00-50.00) Total Protein 5.1 L (6.3-8.2) g/dL Albumin 2.7 L (3.5-5.0) g/dL Microbiology - Last 24 Hours (Table) 12/15/20 18:16 Blood Culture - Preliminary Blood No Growth after 72 hours 12/15/20 18:16 Blood Culture - Preliminary Blood No Growth after 72 hours Assessment and Plan Assessment: 1 Acute hypoxemic respiratory failure secondary to acute COVID-19 pneumonia, cannot rule out underlying bacterial pneumonia. The patient is a poor historian unable to determine onset of symptoms. No Remdesivir for now. 2 Leukocytosis, pro-calcitonin greater than 100 secondary to above 3 Elevated inflammatory markers secondary to above 4 Acute renal failure 5 Atrial fibrillation with a rapid ventricular response, currently on Cardizem drip and heparin drip 6 Recent CVA 7 Troponin leak 8 Coronary artery disease with previous history of coronary artery bypass grafting 9 Chronic obstructive pulmonary disease 10 Remote history of lung cancer, details of which are unclear 11 Former smoker Plan: The patient was seen and evaluated by Dr. Akers Chest x-ray and labs reviewed Continue antibiotics Continue dexamethasone, Lovenox, vitamin supplements We will continue to follow I, the cosigning physician, performed a history & physical examination of the patient. Lungs sounds with few scattered rhonchi, crackles in the bilateral bases. Maintaining good O2 saturations in the 90s on 3 L/m per nasal cannula. I discussed the assessment and plan of care with my nurse practitioner, Adai Guan. I attest to the above consultation as dictated by her.
[2020-12-19] MEDS: SODIUM FERRIC GLUCONAT-SUCROSE 125 MG in SODIUM CHLORIDE 0.9% 100 ML IVPB SCH (14:16)
[2020-12-19 15:14] LABS: Ferritin 950.1 ng/mL (22.0-322.0)
--- NOTE | 2020-12-19 17:18 | PN ---
PROGRESS NOTE DATE OF SERVICE: 12/19/2020 REASON FOR FOLLOWUP: Pneumonia. INTERVAL HISTORY: The patient is currently afebrile. The patient is breathing slightly comfortably. The patient denies having any chest pain , cough decreased in intensity. No vomiting. No abdominal pain or diarrhea. PHYSICAL EXAMINATION: Blood pressure 112/62 with a pulse of 93, temperature 98. He is 96% on 3 L nasal cannula. General description is an elderly male lying in bed in no distress. RESPIRATORY SYSTEM: Unlabored breathing. Clear to auscultation anteriorly. HEART: S1, S2. Regular rate and rhythm. ABDOMEN: Soft. No tenderness. LABS: Hemoglobin is 7.7, white count 12.4, BUN of 69, creatinine 2.09. DIAGNOSTIC IMPRESSION AND PLAN: Patient admitted to hospital with shortness of breath and a cough which is multifactorial. Did have a component of pneumonia. Did have significant elevated procalcitonin. Patient clinically responded to the Unasyn; to continue. Transition to oral Augmentin on discharge. MMODL / IJN: [id number] / GINA
--- NOTE | 2020-12-19 17:48 | P.PN ---
Subjective Progress Note Date: 12/18/20 Fitz Blue, is an 89 year old male who presented to [facility] emergency room with a chief complaint of worsening shortness of breath, patient stated that he started having shortness of breath on the day of presentation that progressed to significant breathing difficulty EMS were sushma smith, they found patient to be in significant respiratory distress he was started on nonrebreather mask and was treated with IV Solu-Medrol and DuoNeb updrafts and was brought in to [facility] emergency room. In the emergency room patient was evaluated, his vital examination on presentation revealed a temperature of 98.6 pulse 142 respiration 18 blood pressure 99/78 pulse ox 94% on room air, laboratory data on presentation revealed a white blood count of 13.5 hemoglobin 10.5 platelet count 134 d-dimer 3.88, sodium 140 potassium 5.3 chloride 106 CO2 16 BUN 19 9 creatinine 5.09 glucose level was 136 plasma lactic acid was 3.5 troponin level was elevated at 0.105 C-reactive p rotein 58.6 Procalcitonin more than 100 and coronavirus PCR was positive. Chest x-ray was done in the emergency room and revealed bilateral interstitial pneumonia, cardiomegaly, small right pleural effusion and pleural reaction , EKG was done in the emergency room and revealed atrial fibrillation with rapid ventricular response and nonspecific ST abnormality . Patient was admitted to telemetry floor for further evaluation and treatment. Patient was admitted to [facility] in August 2020 after having a stroke, he was discharged to [facility] on the [facility] for rehabilit ation and was discharged home about 6 weeks ago. His past medical history is also significant for hypertension, hyperlipidemia, coronary artery disease with history of coronary artery bypass graft surgery, history of COPD, history of pulmonary hypertension, history of multiple lumbar compression vertebral fractures, history of anemia, history of carotid stenosis, history of osteoarthritis, and history of protein calorie malnutrition. On 12/17/2020 patient was seen and examined on the medical floor he is alert and oriented 3 in no apparent distress he is complaining of nausea otherwise he de nies any complaints there is no fever or chills no headache or dizziness no chest pain no shortness of breath no cough no vomiting no abdominal pain no diarrhea no blood in the stools no burning with urination no frequency or urgency and no hematuria. Kidney function has improved significantly since yesterday, otherwise no change in condition. On 12/18/2020 patient was seen and examined on the medical floor he is alert and oriented 3 in no apparent distress he is complaining of nausea otherwise he denies any complaints there is no fever or chills no headache or dizziness no chest pain , he has some shortness of breath no cough no vomiting no abdominal pain no diarrhea no blood in the stools no burning with urination no frequency or urgency and no hematuria. Kidney function has improved significantly since yesterday, otherwise no change in condition. Objective - Vital Signs Vital signs: Vital Signs Temp 98.0 F 12/18/20 16:00 Pulse 97 12/18/20 16:00 Resp 18 12/18/20 16:00 BP 104/64 12/18/20 16:00 Pulse Ox 98 12/18/20 16:00 Intake & Output 12/17/20 12/18/20 12/18/20 18:59 06:59 18:59 Intake Total 990 1330 Output Total 450 590 Balance -898 310 9130 Weight 50.5 kg Intake: Intake, IV Titration 750 450 Amount Ampicillin-Sulbactam 3 gm 100 In Sodium Chloride 0.9% 100 ml @ 200 mls/hr IVPB Q12HR YAHIR Rx#:[id number] Lactated Ringers 1,000 ml 650 450 @ 75 mls/hr IV .[id number] YAHIR Rx#:[id number] Oral 240 880 Output: Urine 450 590 Other: # Voids 1 # Bowel Movements 1 - Exam In general patient is alert and oriented ?-3 in no distress HEENT head normocephalic and atraumatic Neck is supple no JVD no goiter no lymphadenopathy no carotid bruit Chest examination is clear to auscultation no crackles no wheezing Cardiac exam reveals regular heart sounds S1 and S2 no gallops no murmurs Abdomen is soft nontender no organomegaly with normal bowel sounds Extremity exam reveals no edema no cyanosis or clubbing Neurological examination reveals no gross focal deficits - Labs CBC & Chem 7: 12/19/20 07:16 12/19/20 07:16 Labs: Abnormal Lab Results - Last 24 Hours (Table) 12/18/20 12/18/20 12/18/20 Range/Units 07:47 07:47 07:47 WBC 14.6 H (3.8-10.6) k/uL RBC 2.95 L (4.30-5.90) m/uL Hgb 7.8 L (13.0-17.5) gm/dL Hct 25.6 L (39.0-53.0) % MCHC 30.6 L (31.0-37.0) g/dL Plt Count 121 L (150-450) k/uL Neutrophils # 14.1 H (1.3-7.7) k/uL Lymphocytes # 0.1 L (1.0-4.8) k/uL D-Dimer 2.00 H (<0.60) mg/L FEU Chloride 108 H (98-107) mmol/L BUN 76 H (9-20) mg/dL Creatinine 2.19 H (0.66-1.25) mg/dL Glucose 120 H (74-99) mg/dL Calcium 8.2 L (8.4-10.2) mg/dL Total Protein 5.2 L (6.3-8.2) g/dL Albumin 2.6 L (3.5-5.0) g/dL Microbiology - Last 24 Hours (Table) 12/15/20 18:16 Blood Culture - Preliminary Blood No Growth after 48 hours 12/15/20 18:16 Blood Culture - Preliminary Blood No Growth after 48 hours Assessment and Plan Plan: 1. COVID-19 infection 2. Bilateral interstitial pneumonia, possibly related to COVID-19, however bacterial superimposed infection cannot be ruled out 3. Evidence of sepsis, with leukocytosis, hypotension, and elevated lactic acid 4. Acute on chronic renal failure, creatinine on admission in August was 1.5 nephrology consultation requested 5. Severe hyperkalemia 6. Underlying history of COPD 7. Recent history of stroke in August 2020 8. Underlying history of hypertension 9. Underlying history of hyperlipidemia 10. Underlying history of coronary artery disease with previous history of coronary artery bypass graft surgery 11. Underlying history of multiple lumbar compression vertebral fractures. 12. Previous history of anemia and history of GI bleed, Hgb down to 7.7 will consult GI At this time patient is admitted to telemetry floor He received IV fluid boluses He was started on IV heparin and IV Cardizem drip He was started on IV antibiotic Rocephin and Zithromax He was started on steroids prednisone 40 mg daily Pulmonary, nephrology, infectious disease and cardiology consultation requested. Prognosis is poor due to advanced age, severity of illness, and multiple underlying medical conditions
--- NOTE | 2020-12-19 17:50 | P.PN ---
Subjective Progress Note Date: 12/19/20 Fitz Blue, is an 89 year old male who presented to [facility] emergency room with a chief complaint of worsening shortness of breath, patient stated that he started having shortness of breath on the day of presentation that progressed to significant breathing difficulty EMS were sushma smith, they found patient to be in significant respiratory distress he was started on nonrebreather mask and was treated with IV Solu-Medrol and DuoNeb updrafts and was brought in to [facility] emergency room. In the emergency room patient was evaluated, his vital examination on presentation revealed a temperature of 98.6 pulse 142 respiration 18 blood pressure 99/78 pulse ox 94% on room air, laboratory data on presentation revealed a white blood count of 13.5 hemoglobin 10.5 platelet count 134 d-dimer 3.88, sodium 140 potassium 5.3 chloride 106 CO2 16 BUN 19 9 creatinine 5.09 glucose level was 136 plasma lactic acid was 3.5 troponin level was elevated at 0.105 C-reactive p rotein 58.6 Procalcitonin more than 100 and coronavirus PCR was positive. Chest x-ray was done in the emergency room and revealed bilateral interstitial pneumonia, cardiomegaly, small right pleural effusion and pleural reaction , EKG was done in the emergency room and revealed atrial fibrillation with rapid ventricular response and nonspecific ST abnormality . Patient was admitted to telemetry floor for further evaluation and treatment. Patient was admitted to [facility] in August 2020 after having a stroke, he was discharged to [facility] on the [facility] for rehabilit ation and was discharged home about 6 weeks ago. His past medical history is also significant for hypertension, hyperlipidemia, coronary artery disease with history of coronary artery bypass graft surgery, history of COPD, history of pulmonary hypertension, history of multiple lumbar compression vertebral fractures, history of anemia, history of carotid stenosis, history of osteoarthritis, and history of protein calorie malnutrition. On 12/17/2020 patient was seen and examined on the medical floor he is alert and oriented 3 in no apparent distress he is complaining of nausea otherwise he de nies any complaints there is no fever or chills no headache or dizziness no chest pain no shortness of breath no cough no vomiting no abdominal pain no diarrhea no blood in the stools no burning with urination no frequency or urgency and no hematuria. Kidney function has improved significantly since yesterday, otherwise no change in condition. On 12/18/2020 patient was seen and examined on the medical floor he is alert and oriented 3 in no apparent distress he is complaining of nausea otherwise he denies any complaints there is no fever or chills no headache or dizziness no chest pain , he has some shortness of breath no cough no vomiting no abdominal pain no diarrhea no blood in the stools no burning with urination no frequency or urgency and no hematuria. Kidney function has improved significantly since yesterday, otherwise no change in condition. On 12/19/2020 patient was seen and examined on the medical floor he is alert and oriented 3 in no apparent distress he is complaining of nausea otherwise he denies any complaints there is no fever or chills no headache or dizziness no chest pain , he has some shortness of breath no cough no vomiting no abdominal pain no diarrhea no blood in the stools no burning with urination no frequency or urgency and no hematuria. Kidney function has improved significantly since yesterday, otherwise no change in condition. BNP is significantly elevated, patient still having shortness of breath, will check Echocardiogram and consult cardiology Objective - Vital Signs Vital signs: Vital Signs Temp 98.0 F 12/19/20 12:00 Pulse 106 H 12/19/20 16:00 Resp 16 12/19/20 16:00 BP 129/85 12/19/20 16:00 Pulse Ox 96 12/19/20 16:00 Intake & Output 12/18/20 12/19/20 12/19/20 18:59 06:59 18:59 Intake Total 5482 504 4392 Output Total 325 550 300 Balance 1245 -310 980 Weight 54.5 kg Intake: Intake, IV Titration 450 800 Amount Ampicillin-Sulbactam 3 gm 100 In Sodium Chloride 0.9% 100 ml @ 200 mls/hr IVPB Q12HR YAHIR Rx#:[id number] Lactated Ringers 1,000 ml 450 600 @ 75 mls/hr IV .[id number] YAHIR Rx#:[id number] Sodium Ferric Gluconat- 100 Sucrose 125 mg In Sodium Chloride 0.9% 100 ml @ 100 mls/hr IVPB DAILY YAHIR Rx#:[id number] Oral 1120 240 480 Output: Urine 325 550 300 Other: # Voids 2 # Bowel Movements 2 - Exam In general patient is alert and oriented ?-3 in no distress HEENT head normocephalic and atraumatic Neck is supple no JVD no goiter no lymphadenopathy no carotid bruit Chest examination is clear to auscultation no crackles no wheezing Cardiac exam reveals regular heart sounds S1 and S2 no gallops no murmurs Abdomen is soft nontender no organomegaly with normal bowel sounds Extremity exam reveals no edema no cyanosis or clubbing Neurological examination reveals no gross focal deficits - Labs CBC & Chem 7: 12/19/20 07:16 12/19/20 07:16 Labs: Abnormal Lab Results - Last 24 Hours (Table) 12/18/20 12/19/20 12/19/20 Range/Units 07:47 07:16 07:16 WBC 12.4 H (3.8-10.6) k/uL RBC 2.70 L (4.30-5.90) m/uL Hgb 7.7 L (13.0-17.5) gm/dL Hct 23.6 L (39.0-53.0) % Plt Count 113 L (150-450) k/uL Neutrophils # 11.8 H (1.3-7.7) k/uL Lymphocytes # 0.2 L (1.0-4.8) k/uL BUN 69 H (9-20) mg/dL Creatinine 2.09 H (0.66-1.25) mg/dL Glucose 111 H (74-99) mg/dL Iron 12 L (65-175) ug/dL TIBC 175 L (228-460) ug/dL % Saturation 6.86 L (15.00-50.00) Ferritin 950.1 H (22.0-322.0) ng/mL Total Protein 5.1 L (6.3-8.2) g/dL Albumin 2.7 L (3.5-5.0) g/dL Microbiology - Last 24 Hours (Table) 12/15/20 18:16 Blood Culture - Preliminary Blood No Growth after 72 hours 12/15/20 18:16 Blood Culture - Preliminary Blood No Growth after 72 hours Assessment and Plan Plan: 1. COVID-19 infection 2. Bilateral interstitial pneumonia, possibly related to COVID-19, however bacterial superimposed infection cannot be ruled out 3. Evidence of sepsis, with leukocytosis, hypotension, and elevated lactic acid 4. Acute on chronic renal failure, creatinine on admission in August was 1.5 nephrology consultation requested 5. Severe hyperkalemia 6. Underlying history of COPD 7. Recent history of stroke in August 2020 8. Underlying history of hypertension 9. Underlying history of hyperlipidemia 10. Underlying history of coronary artery disease with previous history of coronary artery bypass graft surgery 11. Underlying history of multiple lumbar compression vertebral fractures. 12. Previous history of anemia and history of GI bleed, Hgb down to 7.7 will consult GI At this time patient is admitted to telemetry floor He received IV fluid boluses He was started on IV heparin and IV Cardizem drip He was started on IV antibiotic Rocephin and Zithromax He was started on steroids prednisone 40 mg daily Pulmonary, nephrology, infectious disease and cardiology consultation requested. Prognosis is poor due to advanced age, severity of illness, and multiple underlying medical conditions
[2020-12-20] MEDS: CHOLECALCIFEROL 25 MCG (1000 IU) TABLET PO SCH (09:24)
[2020-12-20] MEDS: ASCORBIC ACID 500 MG TAB PO SCH (09:24)
[2020-12-20] MEDS: AMPICILLIN-SULBACTAM 3 GM in SODIUM CHLORIDE 0.9% 100 ML IVPB SCH ×2 (09:24→20:25)
[2020-12-20] MEDS: ZINC SULFATE 220 MG CAP PO SCH (09:24)
[2020-12-20] MEDS: ASPIRIN 81 MG PO SCH (09:24)
[2020-12-20] MEDS: ENOXAPARIN 30 MG/0.3 ML SYRINGE SQ SCH (09:25)
[2020-12-20] MEDS: DEXAMETHASONE SOD PHOSPHATE 10 MG/ML 1 ML VIAL IV SCH (09:25)
[2020-12-20] MEDS: METOPROLOL TARTRATE 25 MG TAB PO SCH (09:25)
[2020-12-20] MEDS ORDERED: METOPROLOL TARTRATE 25 MG TAB PO STA (11:03)
[2020-12-20] MEDS: SODIUM FERRIC GLUCONAT-SUCROSE 125 MG in SODIUM CHLORIDE 0.9% 100 ML IVPB SCH (12:13)
--- NOTE | 2020-12-20 12:22 | P.PN ---
Subjective Progress Note Date: 12/20/20 Principal diagnosis: COPD exacerbation, A. fib with RVR, pneumonia This is a pleasant 89-year-old gentleman who follows with Dr. Boss as his primary care provider. He has history of hypertension, CVA, coronary artery disease with previous coronary artery bypass grafting, COPD, seizure disorder, previous smoker, lung cancer. He presented to the emergency room yesterday with complaints of increasing shortness of breath, chest tightness and wheezing. He was found to be in atrial fibrillation with a rapid ventricular response. Chest x-ray revealed bilateral interstitial pneumonia. Cardiomegaly. Small right pleural effusion and pleural reaction at the right lung base. White count 17.4. Hemoglobin 9.1. Sodium 139. Potassium 5.4. Creatinine 3.75. Presenting crea tinine was 5.09. Pro-calcitonin greater than 100. Troponin 0.105. C-reactive protein 58.6. Andres virus positive. He is seen today in consultation on the selective care unit. The patient is a poor historian. Unable to determine when his symptoms started. He is currently resting fairly comfortably in bed. Awake and alert in no acute distress. Maintaining O2 saturations in the high 90s on 3 L/m per nasal cannula. Afebrile. Slightly tachycardic. Ultrasound of the kidneys revealed no hydronephrosis or nephrolithiasis bilaterally. His initiated on a Cardizem drip at 10 mg per hour, heparin drip and antibiotics in the form of ceftriaxone and azithromycin. His initiated on Decadron 10 mg IV daily. Progress note dated 12/17/2020. 89-year-old black male, seen by our nurse practitioner yesterday in consultation. The patient has a history of hypertension, CVA, coronary disease, previous bypass grafting, COPD, seizure disorder, and lung cancer. The patient apparently presented to the emergency department with complaints of increasing shortness of breath, chest tightness, and wheezing. He was found to have atrial fibrillation with RVR, and also was positive for coronavirus infection. The patient seems be recently comfortable this time. He is on 3 L. Saturations are 97%. Heart rate 86. Respiratory rate 18. No audible wheezing, use of accessory muscles, or conversational dyspnea. The patient is not a particularly good historian. White count 15.8, hemoglobin 7.9, hematocrit 24.8, and platelet count 120,000. PTT is 37.8. Sodium 141, potassium 3.4, chlorides 104, CO2 25, anion gap 12, BUN 97, and creatinine 2.67. Initial lactic acid 2.2. Repeat lactic acid 1.1. Chest x-ray shows bilateral interstitial pneumonia with cardiomegaly. There is a small right-sided pleural effusion. Progress note dated 12/18/2020. 89-year-old black male, seen in consultation 2 days ago. I saw the patient yesterday in follow-up. The patient has a history of essential hypertension, CVA, coronary artery disease, previous bypass grafting, COPD, seizure disorder, and lung cancer. The patient presented to the emergency department with complaints of increasing shortness of breath, chest tightness and wheezing, and was found to have atrial fibrillation with RVR, and also tested positive for coronavirus infection. Currently, the patient appears to be relatively comforta ble. He is on 3 L nasal cannula, and his saturations are 100%. Blood pressure 112/72, heart rate 89, respiratory rate 18, and his temperature is 97.8. Labs show a white count of 14.6, hemoglobin 7.8, hematocrit 25.6, and platelet count 121,000. D-dimer is 2.0. Sodium 141, potassium 3.8, chlorides 108, CO2 26, anion gap 7, BUN 76, creatinine 2.19. No recent chest x-ray to review. The patient is seen today 12/19/2020 in follow-up on the cardiac floor. He is currently resting comfortably in bed. Awake, alert and in no acute distress. He is maintaining O2 saturation in the 90s on 3 L/m per nasal cannula. Lactated Ringer's at 75 ML's per hour. He's been afebrile. Hemodynamically stable. Chest x-ray reveals evidence of congestive heart failure and underlying COPD. Chronic pleural reaction. Blood cultures reveal no growth. White count 12.4. Hemoccult was 7.7. Platelets 113. Sodium 141. Potassium 4.0. Creatinine 2.09. ProBNP 36,700. He remains on Decadron, Lovenox, vitamin supplements. Antibiotics in the form of Unasyn. The patient is seen today 12/20/2020 in follow-up on the selective care unit. He is currently resting comfortably in bed. Awake and alert in no acute distress. Rectal maintaining O2 saturations in the 90s on 3 L/m per nasal cannula. She's been afebrile. Hemodynamically stable. Blood cultures reveal no growth. No new labs today. He remains on Decadron, Lovenox, vitamin supplements. Antibiotics in the form of Unasyn. Lactated Ringer's at 75 ML's per hour. Objective - Vital Signs Vital signs: Vital Signs Temp 98.2 F 12/20/20 08:00 Pulse 115 H 12/20/20 08:00 Resp 20 12/20/20 08:00 BP 125/85 12/20/20 08:00 Pulse Ox 96 12/20/20 08:00 Intake & Output 12/19/20 12/20/20 12/20/20 18:59 06:59 18:59 Intake Total 1280 240 Output Total 300 525 275 Balance 980 -525 -35 Weight 50 kg Intake: Intake, IV Titration 800 Amount Ampicillin-Sulbactam 3 gm 100 In Sodium Chloride 0.9% 100 ml @ 200 mls/hr IVPB Q12HR [facility] Rx#:[id number] Lactated Ringers 1,000 ml 600 @ 75 mls/hr IV .[id number] [facility] Rx#:[id number] Sodium Ferric Gluconat- 100 Sucrose 125 mg In Sodium Chloride 0.9% 100 ml @ 100 mls/hr IVPB DAILY [facility] Rx#:[id number] Oral 480 240 Output: Urine 300 525 275 Other: Voiding Method Urinal # Bowel Movements 1 - Exam No acute distress, pleasant 89-year-old gentleman, poor historian, currently on 3 L nasal cannula, with saturations at 96%. No obvious respiratory distress. HEENT examination is grossly unremarkable. Neck supple. Full range of motion. No adenopathy thyromegaly or neck vein distention. Cardiovascular examination reveals regular rhythm rate. S1-S2 normal. No S3 or S4. No discernible murmur noted. Heart rate 89 bpm. Lungs reveal scattered rhonchi and crackles. Breath sounds equal bilaterally. He is not taking deep breaths. No distinct wheezes noted. Abdomen soft bowel sounds are heard. No masses or tenderness. Extremities are intact. No cyanosis clubbing or edema. Skin is without rash or lesion. Neurologic examination is brief but nonfocal. - Labs CBC & Chem 7: 12/19/20 07:16 12/19/20 07:16 Labs: Abnormal Lab Results - Last 24 Hours (Table) 12/19/20 Range/Units 07:16 Ferritin 950.1 H (22.0-322.0) ng/mL Microbiology - Last 24 Hours (Table) 12/15/20 18:16 Blood Culture - Preliminary Blood No Growth after 96 hours 12/15/20 18:16 Blood Culture - Preliminary Blood No Growth after 96 hours Assessment and Plan Assessment: 1 Acute hypoxemic respiratory failure secondary to acute COVID-19 pneumonia, cannot rule out underlying bacterial pneumonia. The patient is a poor historian unable to determine onset of symptoms. No Remdesivir for now. 2 Leukocytosis, pro-calcitonin greater than 100 secondary to above, improving 3 Elevated inflammatory markers secondary to above 4 Acute renal failure 5 Atrial fibrillation with a rapid ventricular response, currently on Cardizem drip and heparin drip 6 Recent CVA 7 Troponin leak 8 Coronary artery disease with previous history of coronary artery bypass grafting 9 Chronic obstructive pulmonary disease 10 Remote history of lung cancer, details of which are unclear 11 Former smoker Plan: The patient was seen and evaluated by Dr. Akers Breathing a bit easier today Continue the current treatment plan We will continue to follow I, the cosigning physician, performed a history & physical examination of the patient. Lungs sounds with few scattered rhonchi, crackles in the bilateral bases. Maintaining good O2 saturations in the 90s on 3 L/m per nasal cannula. I discussed the assessment and plan of care with my nurse practitioner, Adia Guan. I attest to the above consultation as dictated by her.
--- NOTE | 2020-12-20 12:29 | P.PN ---
Subjective Progress Note Date: 12/20/20 Principal diagnosis: Anemia Patient was seen and examined lying in bed. He is denying any abdominal pain, nausea, or vomiting. He denies any black or bloody stool. He has had no acute changes through the night. Objective - Vital Signs Vital signs: Vital Signs Temp 98.2 F 12/20/20 08:00 Pulse 115 H 12/20/20 08:00 Resp 20 12/20/20 08:00 BP 125/85 12/20/20 08:00 Pulse Ox 96 12/20/20 08:00 Intake & Output 12/19/20 12/20/20 12/20/20 18:59 06:59 18:59 Intake Total 1280 240 Output Total 300 525 275 Balance 980 -525 -35 Weight 50 kg Intake: Intake, IV Titration 800 Amount Ampicillin-Sulbactam 3 gm 100 In Sodium Chloride 0.9% 100 ml @ 200 mls/hr IVPB Q12HR [facility] Rx#:[id number] Lactated Ringers 1,000 ml 600 @ 75 mls/hr IV .[id number] [facility] Rx#:[id number] Sodium Ferric Gluconat- 100 Sucrose 125 mg In Sodium Chloride 0.9% 100 ml @ 100 mls/hr IVPB DAILY [facility] Rx#:[id number] Oral 480 240 Output: Urine 300 525 275 Other: Voiding Method Urinal # Bowel Movements 1 - Exam General appearance: The patient is alert, oriented, appears in no acute distress. HET: Head is normocephalic and atraumatic. Conjunctiva pink. Sclera anicteric. Neck: Supple without lymphadenopathy. Abdomen: Soft, nontender, nondistended with bowel sounds. No guarding or rigidity. Extremities: Normal skin color and turgor. No pedal edema Skin: No rashes, no jaundice Neurological: No focal deficits. Alert and oriented 3. - Labs CBC & Chem 7: 12/19/20 07:16 12/19/20 07:16 Labs: Abnormal Lab Results - Last 24 Hours (Table) 12/19/20 Range/Units 07:16 Ferritin 950.1 H (22.0-322.0) ng/mL Microbiology - Last 24 Hours (Table) 12/15/20 18:16 Blood Culture - Preliminary Blood No Growth after 96 hours 12/15/20 18:16 Blood Culture - Preliminary Blood No Growth after 96 hours Assessment and Plan (1) Anemia, normocytic normochromic Narrative/Plan: 89-year-old male with multiple medical comorbidities admitted for shortness of breath and Covid-19 infection. Patient was noted to have anemia on initial hospitalization, with a continued drop in his hemoglobin. He reports his last colonoscopy was approximately one year ago however reports are not available at this time. He also underwent an EGD in August of this year at [facility] with findings including a small hiatal hernia, gastritis, and LA grade B esophagitis as part of a workup for his anemia at that time. He denies any signs or symptoms of GI bleeding. Anemia is likely multifactorial related to chronic disease and acute on chronic renal failure. Current Visit: No Status: Acute Code(s): D64.9 - ANEMIA, UNSPECIFIED SNOMED Code(s): 69237620 (2) Acute on chronic renal failure Current Visit: Yes Status: Acute Code(s): N17.9 - ACUTE KIDNEY FAILURE, UNSPECIFIED; N18.9 - CHRONIC KIDNEY DISEASE, UNSPECIFIED SNOMED Code(s): 814083855 (3) COVID-19 Current Visit: Yes Status: Acute Code(s): U07.1 - COVID-19 SNOMED Code(s): 043207376 (4) COPD (chronic obstructive pulmonary disease) Current Visit: Yes Status: Acute Code(s): J44.9 - CHRONIC OBSTRUCTIVE PULMONARY DISEASE, UNSPECIFIED SNOMED Code(s): 14974216 Plan: Continue symptomatic and supportive care Iron studies reviewed Stool Hemoccult ordered IV iron ordered Daily CBC, transfuse for hemoglobin less than 7 Consider hematology consult No plans for endoscopic evaluation at this time, patient recently had endoscopic evaluation earlier this year. Thank you for this consultation, will be sign off at this time, however patient has any signs or symptoms of GI bleed please don't hesitate to contact us Dr. Hall I agree with the dictator's note, documented as a scribe by Sobia Loza.
--- NOTE | 2020-12-20 13:11 | PN ---
PROGRESS NOTE Patient is seen for followup for acute kidney injury and chronic kidney disease. He was admitted with COVID pneumonia. Serum creatinine was 5.0 on initial admission and has decreased to about 2.0 which appears to be baseline as creatinine was 1.7 and 2.3 in August and September of 2020 as well. Currently patient is off of IV fluids. He is awake. He has been able to eat although he ate a much less today. He has been voiding and 24-hour output documented at about 875 mL. PHYSICAL EXAMINATION: On examination today, blood pressure 125/85, heart rate 115 per minute. There is no evidence of edema of lower extremities. Patient is awake, following commands. Heart and lungs are not examined. LABS: Labs are not available from today. ASSESSMENT: 1. Acute kidney injury prerenal currently improved post IV hydration. 2. Chronic kidney disease NKF stage 4 baseline creatinine about 1.7-2.0. Etiology mostly nephrosclerosis. I do not have a UA from this admission. 3. COVID pneumonia, currently stable. 4. Acute hypoxic respiratory failure, currently improved, maintained on 3 L nasal cannula and oxygen will be decreased to about 2 L. 5. Atrial fibrillation with rapid ventricular response, on initial admission currently with controlled ventricular response. PLAN: Continue off of IV fluids. Check labs in a.m. Continue to encourage increased oral intake. MMODL / IJN: [id number] /
--- NOTE | 2020-12-20 13:18 | P.PN ---
Subjective HISTORY OF PRESENTING ILLNESS This is a pleasant 89-year-old with past medical history significant for hypertension, stroke, coronary artery disease with previous CABG, bioprosthetic aortic valve replacement, COPD, seizure disorder, previous tobacco abuse and lung cancer. He follows in the office with Dr. Cifuentes. Patient has been having increased shortness breath for last 2 days and therefore called EMS. Patient was found have COVID-19 pneumonia. Patient is somewhat poor historian and records were obtained from the office. Patient was last seen in 2018 in office. He had aortic valve replacement, had moderate to severe mitral regurgitation at that time with [facility]EL 01/19/20 which showed normal ejection fraction 60-65% with normal bioprosthetic aortic valve and moderate to severe mitral regurgitation with severe tricuspid regurgitation and an RVSP of 62. Blood work showed white blood cell count 13.5, hemoglobin 10.5, platelets 134, d-dimer 3.8, potassium 5.3, BUN 99, creatinine 5.09, pro-calcitonin greater than 100, troponin 0.1, CRP 58, coronavirus positive. Chest x-ray showed bilateral interstitial pneumonia, cardiomegaly, small right pleural effusion. Patient was seen by nephrology and was placed on D5W with bicarb. Initial EKG was called atrial fibrillation however appears to have regular P waves, sinus rhythm with frequent PACs. Additionally there are nonspecific ST, T-wave abnormalities. 12/20/2020 Patient seen and examined sitting up in bed in no acute distress. He states overall his breathing is stable. He has had no worsening shortness of breath however no real improvement. He denies chest pain, dizziness or palpitations. Blood pressure 125/85 heart rate 115 afebrile maintaining oxygen saturation on nasal cannula. Telemetry tracings reviewed, he continues to maintain sinus mechanism with episodes of atrial tachycardia and has had frequent PVCs with short runs of nonsustained ventricular tachycardia. Laboratory data from yesterday reviewed, WBC improving at 12.4, hemoglobin stable at 7.7, platelets 113, sodium 141, potassium 4, creatinine improving at 2.09 and NT proBNP 36,700. Chest x-ray obtained yesterday reveals patchy bilateral air space disease, prominent interstitium, thickening along the right costophrenic angle, right lateral chest margin with a small effusion noted. Pulmonology is following and treating for possible underlying bacterial aspiration pneumonia. Echocardiogram obtained on this admission reveals preserved LV systolic function with ejection fraction 55-60%, grade 2 diastolic dysfunction, severely dilated left atrium, mild to moderate stenosis of the bioprosthetic aortic valve with a mean gradient of 24 mmHg, moderate mitral regurgitation with a predominantly posterior directed jet, severe tricuspid regurgitation and severe pulmonary hypertension with RVSP of 80 mmHg. GENERAL: Well-appearing, well-nourished and in no acute distress. GENERAL: Well-appearing, well-nourished and in no acute distress. NECK: Supple without JVD or thyromegaly. LUNGS: Bibasilar rales, no wheezes or rhonchi. Respiration equal and unlabored. HEART: Regular rate and rhythm with systolic ejection murmur at the base, no rubs or gallops. S1 and S2 heard. EXTREMITIES: Normal range of motion, no edema. No clubbing or cyanosis. Peripheral pulses intact. ASSESSMENT Sinus tachycardia with frequent PACs COVID-19 pneumonia Mildly elevated troponin related to COVID-19 infection and chronic kidney disease [place] on chronic diastolic heart failure Acute renal failure History of bioprosthetic aortic valve replacement History of moderate to severe mitral regurgitation and severe tricuspid regurgitation Pulmonary hypertension Anemia Hyperkalemia, resolved PLAN Initiate on IV diuretics for 24 hours. Follow renal function and electrolytes in the morning. Nurse Practitioner note has been reviewed, I agree with a documented findings and plan of care. Patient was seen and examined. Objective - Vital Signs Vital signs: Vital Signs Temp 98.2 F 12/20/20 08:00 Pulse 115 H 12/20/20 08:00 Resp 20 12/20/20 08:00 BP 125/85 12/20/20 08:00 Pulse Ox 96 12/20/20 08:00 Intake & Output 12/19/20 12/20/20 12/20/20 18:59 06:59 18:59 Intake Total 1280 240 Output Total 300 525 275 Balance 980 -525 -35 Weight 50 kg Intake: Intake, IV Titration 800 Amount Ampicillin-Sulbactam 3 gm 100 In Sodium Chloride 0.9% 100 ml @ 200 mls/hr IVPB Q12HR [facility] Rx#:[id number] Lactated Ringers 1,000 ml 600 @ 75 mls/hr IV .[id number] [facility] Rx#:[id number] Sodium Ferric Gluconat- 100 Sucrose 125 mg In Sodium Chloride 0.9% 100 ml @ 100 mls/hr IVPB DAILY [facility] Rx#:[id number] Oral 480 240 Output: Urine 300 525 275 Other: Voiding Method Urinal # Bowel Movements 1 - Labs CBC & Chem 7: 12/19/20 07:16 12/19/20 07:16 Labs: Abnormal Lab Results - Last 24 Hours (Table) 12/19/20 Range/Units 07:16 Ferritin 950.1 H (22.0-322.0) ng/mL Microbiology - Last 24 Hours (Table) 12/15/20 18:16 Blood Culture - Preliminary Blood No Growth after 96 hours 12/15/20 18:16 Blood Culture - Preliminary Blood No Growth after 96 hours
[2020-12-20] MEDS: FUROSEMIDE 10 MG/ML 4 ML VIAL IV SCH ×2 (14:50→20:25)
[2020-12-20] MEDS: LACTATED RINGERS 1,000 ML IV SCH (17:39)
--- NOTE | 2020-12-20 17:53 | PN ---
PROGRESS NOTE DATE OF SERVICE: 12/22/2020 REASON FOR FOLLOWUP: Aspiration pneumonia. INTERVAL HISTORY: The patient is afebrile. The patient is breathing comfortably. The patient denies having any chest pain. His cough has decreased in intensity. No vomiting or abdominal pain or diarrhea. PHYSICAL EXAMINATION: Blood pressure 141/74, pulse of 105, temperature 98.1. He is 95% on 1 L nasal cannula. General description is an elderly male lying in bed in no distress. RESPIRATORY SYSTEM: Unlabored breathing with decreased intensity of breath sounds. No wheeze. HEART: S1, S2. Regular rate and rhythm. ABDOMEN: Soft. No tenderness. LABS: No new labs have been obtained today. DIAGNOSTIC IMPRESSION AND PLAN: Patient admitted to hospital with shortness of breath and a cough with evidence of pneumonia, possibly aspiration in etiology. Patient does respond to Unasyn; to continue and finish therapy with oral Augmentin. Continue supportive care. MMODL / IJN: [id number] /
--- NOTE | 2020-12-20 18:05 | P.PN ---
Subjective Progress Note Date: 12/20/20 Fitz Blue, is an 89 year old male who presented to [facility] emergency room with a chief complaint of worsening shortness of breath, patient stated that he started having shortness of breath on the day of presentation that progressed to significant breathing difficulty EMS were sushma smith, they found patient to be in significant respiratory distress he was started on nonrebreather mask and was treated with IV Solu-Medrol and DuoNeb updrafts and was brought in to [facility] emergency room. In the emergency room patient was evaluated, his vital examination on presentation revealed a temperature of 98.6 pulse 142 respiration 18 blood pressure 99/78 pulse ox 94% on room air, laboratory data on presentation revealed a white blood count of 13.5 hemoglobin 10.5 platelet count 134 d-dimer 3.88, sodium 140 potassium 5.3 chloride 106 CO2 16 BUN 19 9 creatinine 5.09 glucose level was 136 plasma lactic acid was 3.5 troponin level was elevated at 0.105 C-reactive p rotein 58.6 Procalcitonin more than 100 and coronavirus PCR was positive. Chest x-ray was done in the emergency room and revealed bilateral interstitial pneumonia, cardiomegaly, small right pleural effusion and pleural reaction , EKG was done in the emergency room and revealed atrial fibrillation with rapid ventricular response and nonspecific ST abnormality . Patient was admitted to telemetry floor for further evaluation and treatment. Patient was admitted to [facility] in August 2020 after having a stroke, he was discharged to [facility] on the [facility] for rehabilit ation and was discharged home about 6 weeks ago. His past medical history is also significant for hypertension, hyperlipidemia, coronary artery disease with history of coronary artery bypass graft surgery, history of COPD, history of pulmonary hypertension, history of multiple lumbar compression vertebral fractures, history of anemia, history of carotid stenosis, history of osteoarthritis, and history of protein calorie malnutrition. On 12/17/2020 patient was seen and examined on the medical floor he is alert and oriented 3 in no apparent distress he is complaining of nausea otherwise he de nies any complaints there is no fever or chills no headache or dizziness no chest pain no shortness of breath no cough no vomiting no abdominal pain no diarrhea no blood in the stools no burning with urination no frequency or urgency and no hematuria. Kidney function has improved significantly since yesterday, otherwise no change in condition. On 12/18/2020 patient was seen and examined on the medical floor he is alert and oriented 3 in no apparent distress he is complaining of nausea otherwise he denies any complaints there is no fever or chills no headache or dizziness no chest pain , he has some shortness of breath no cough no vomiting no abdominal pain no diarrhea no blood in the stools no burning with urination no frequency or urgency and no hematuria. Kidney function has improved significantly since yesterday, otherwise no change in condition. On 12/19/2020 patient was seen and examined on the medical floor he is alert and oriented 3 in no apparent distress he is complaining of nausea otherwise he denies any complaints there is no fever or chills no headache or dizziness no chest pain , he has some shortness of breath no cough no vomiting no abdominal pain no diarrhea no blood in the stools no burning with urination no frequency or urgency and no hematuria. Kidney function has improved significantly since yesterday, otherwise no change in condition. BNP is significantly elevated, patient still having shortness of breath, will check Echocardiogram and consult cardiology. On 12/20/2020 patient was seen and examined on the medical floor he is alert and oriented 3 in no apparent distress he is complaining of nausea otherwise he denies any complaints there is no fever or chills no headache or dizziness no chest pain , he has some shortness of breath no cough no vomiting no abdominal pain no diarrhea no blood in the stools no burning with urination no frequency or urgency and no hematuria. Kidney function has improved significantly since yesterday, otherwise no change in condition. BNP is significantly elevated, patient still having shortness of breath, will check Echocardiogram and consult cardiology. patient was started on IV lasix, awaiting Echo Objective - Vital Signs Vital signs: Vital Signs Temp 98.1 F 12/20/20 12:00 Pulse 107 H 12/20/20 14:00 Resp 22 12/20/20 12:00 BP 141/74 12/20/20 12:00 Pulse Ox 95 12/20/20 12:00 Intake & Output 12/19/20 12/20/20 12/20/20 18:59 06:59 18:59 Intake Total 1280 240 Output Total 300 525 275 Balance 980 -525 -35 Weight 50 kg 50 kg Intake: Intake, IV Titration 800 Amount Ampicillin-Sulbactam 3 gm 100 In Sodium Chloride 0.9% 100 ml @ 200 mls/hr IVPB Q12HR [facility] Rx#:[id number] Lactated Ringers 1,000 ml 600 @ 75 mls/hr IV .[id number] [facility] Rx#:[id number] Sodium Ferric Gluconat- 100 Sucrose 125 mg In Sodium Chloride 0.9% 100 ml @ 100 mls/hr IVPB DAILY [facility] Rx#:[id number] Oral 480 240 Output: Urine 300 525 275 Other: Voiding Method Urinal # Bowel Movements 1 1 - Exam In general patient is alert and oriented x3 in no distress HEENT head normocephalic and atraumatic Neck is supple no JVD no goiter no lymphadenopathy no carotid bruit Chest examination is clear to auscultation no crackles no wheezing Cardiac exam reveals regular heart sounds S1 and S2 no gallops no murmurs Abdomen is soft nontender no organomegaly with normal bowel sounds Extremity exam reveals no edema no cyanosis or clubbing Neurological examination reveals no gross focal deficits - Labs CBC & Chem 7: 12/19/20 07:16 12/19/20 07:16 Labs: Microbiology - Last 24 Hours (Table) 12/15/20 18:16 Blood Culture - Preliminary Blood No Growth after 96 hours 12/15/20 18:16 Blood Culture - Preliminary Blood No Growth after 96 hours Assessment and Plan Plan: 1. COVID-19 infection 2. Bilateral interstitial pneumonia, possibly related to COVID-19, however bacterial superimposed infection cannot be ruled out 3. Evidence of sepsis, with leukocytosis, hypotension, and elevated lactic acid 4. Acute on chronic renal failure, creatinine on admission in August was 1.5 nephrology consultation requested 5. Severe hyperkalemia 6. Underlying history of COPD 7. Recent history of stroke in August 2020 8. Underlying history of hypertension 9. Underlying history of hyperlipidemia 10. Underlying history of coronary artery disease with previous history of coronary artery bypass graft surgery 11. Underlying history of multiple lumbar compression vertebral fractures. 12. Previous history of anemia and history of GI bleed, Hgb down to 7.7 will consult GI At this time patient is admitted to telemetry floor He received IV fluid boluses He was started on IV heparin and IV Cardizem drip He was started on IV antibiotic Rocephin and Zithromax He was started on steroids prednisone 40 mg daily Pulmonary, nephrology, infectious disease and cardiology consultation requested. Prognosis is poor due to advanced age, severity of illness, and multiple underlying medical conditions
[2020-12-20] MEDS: METOPROLOL TARTRATE 50 MG TAB PO SCH (20:25)
[2020-12-21] MEDS: AMPICILLIN-SULBACTAM 3 GM in SODIUM CHLORIDE 0.9% 100 ML IVPB SCH ×2 (08:30→20:45)
[2020-12-21] MEDS: DEXAMETHASONE SOD PHOSPHATE 10 MG/ML 1 ML VIAL IV SCH (08:30)
[2020-12-21] MEDS: ZINC SULFATE 220 MG CAP PO SCH (08:31)
[2020-12-21] MEDS: METOPROLOL TARTRATE 50 MG TAB PO SCH ×3 (08:31→20:45)
[2020-12-21] MEDS: ASPIRIN 81 MG PO SCH (08:31)
[2020-12-21] MEDS: ASCORBIC ACID 500 MG TAB PO SCH (08:31)
[2020-12-21] MEDS: CHOLECALCIFEROL 25 MCG (1000 IU) TABLET PO SCH (08:31)
[2020-12-21] MEDS: ENOXAPARIN 30 MG/0.3 ML SYRINGE SQ SCH (08:31)
[2020-12-21] MEDS: FUROSEMIDE 10 MG/ML 4 ML VIAL IV SCH ×2 (08:31→20:45)
[2020-12-21 08:56] LABS: Basophils # (A) 0.1 k/uL (0-0.2); Basophils % (A) 1 %; Eosinophils % (A) 0 %; HCT 28.2 % (39.0-53.0); HGB 8.9 gm/dL (13.0-17.5); Hypochromasia Slight; Lymphocytes # (A) 0.3 k/uL (1.0-4.8); Lymphocytes % (A) 2 %; MCH 27.8 pg (25.0-35.0); MCHC 31.4 g/dL (31.0-37.0); MCV 88.3 fL (80.0-100.0); Mean Platelet Volume 9.8; Monocytes # (A) 0.3 k/uL (0-1.0); Monocytes % (A) 2 %; Neutrophils # (A) 15.9 k/uL (1.3-7.7); Neutrophils % (A) 94 %; RBC 3.19 m/uL (4.30-5.90); RDW 15.4 % (11.5-15.5)
[2020-12-21 09:02] LABS: Platelet Count 170 k/uL (150-450)
[2020-12-21 09:30] LABS: Albumin 2.8 g/dL (3.5-5.0); Potassium 3.7 mmol/L (3.5-5.1); Total Bilirubin 0.4 mg/dL (0.2-1.3); Total Protein 5.7 g/dL (6.3-8.2)
--- NOTE | 2020-12-21 10:01 | ECHOF ---
Referral Reason:chf MEASUREMENTS -------- HEIGHT: 175.3 cm WEIGHT: 49.9 kg BP: 135/80 RVIDd: 3.9 cm (< 3.3) AV maxP.66 mmHg AV meanP.09 mmHg RAP: 5.00 mmHg RVSP: 74.58 mmHg FINDINGS -------- Atrial fibrillation. Limited Study Overall left ventricular systolic function is mild-moderately impaired with, an EF between 40 - 45 %. The right ventricle is moderately enlarged. Interatrial and interventricular septum intact. Moderate mitral regurgitation is present , predominately a posteriorly directed jet. Moderate to severe tricuspid regurgitation present. There is severe pulmonary hypertension. The r ight ventricular systolic pressure, as measured by Doppler, is 74.58mmHg. Normal inferior vena cava with normal inspiratory collapse consistent with estimated right atrial pre ssure of 5 mmHg. There is no pericardial effusion. CONCLUSIONS -------- 1. Overall left ventricular systolic function is mild-moderately impaired with, an EF between 40 - 45 %. 2. The right ventricle is moderately enlarged. 3. , predominately a posteriorly directed jet. 4. Moderate to severe tricuspid regurgitation present. 5. There is severe pulmonary hypertension. 6. The right ventricular systolic pressure, as measured by Doppler, is 74.58mmHg. 7. There is no pericardial effusion. PROGRAM INSTRUCTOR: Susanne Ibanez RDCS
[2020-12-21] MEDS: SODIUM FERRIC GLUCONAT-SUCROSE 125 MG in SODIUM CHLORIDE 0.9% 100 ML IVPB SCH (10:20)
--- NOTE | 2020-12-21 11:30 | PN ---
PROGRESS NOTE Patient is seen for followup for acute kidney injury. He was admitted with COVID pneumonia. Renal function has improved. He did have some degree of volume depletion on initial admission. Serum creatinine has decreased from 5.0 on admission to 1.9 now. PHYSICAL EXAMINATION: On examination today, patient is comfortable, awake. He is not in any acute distress. Blood pressure 138/84, heart rate 119 per minute, O2 sats are maintained at 94% on 2 L nasal cannula. No evidence of edema in the lower extremities. LOAD OUT PERSON exam grossly intact. Lungs and heart are not examined. LABS: Labs show sodium 140, potassium 3.7, chloride 106, BUN 59, creatinine 1.92, hemoglobin 8.9 g/dL. ASSESSMENT: 1. Acute kidney injury, acute tubular necrosis, currently improved post hydration. The patient is now being diuresed. Renal function continues to improve. Therefore, we can continue with the Lasix for now. 2. Underlying history of chronic obstructive pulmonary disease. 3. Chronic kidney disease secondary to nephrosclerosis. Previous creatinine about 1.4- 1.5 mg/dL in August of [address] back to 2018. UA has still not been sent out. It has been ordered multiple times. I will discuss with nursing staff. PLAN: Continue with Lasix for now. Repeat labs in a.m. Check urinalysis. MMODL / IJN: [id number] /
--- NOTE | 2020-12-21 11:44 | P.PN ---
Subjective HISTORY OF PRESENTING ILLNESS This is a pleasant 89-year-old with past medical history significant for hypertension, stroke, coronary artery disease with previous CABG, bioprosthetic aortic valve replacement, COPD, seizure disorder, previous tobacco abuse and lung cancer. He follows in the office with Dr. Cifuentes. Patient has been having increased shortness breath for last 2 days and therefore called EMS. Patient was found have COVID-19 pneumonia. Patient is somewhat poor historian and records were obtained from the office. Patient was last seen in 2018 in office. He had aortic valve replacement, had moderate to severe mitral regurgitation at that time with MARIVEL 01/19/20 which showed normal ejection fraction 60-65% with normal bioprosthetic aortic valve and moderate to severe mitral regurgitation with severe tricuspid regurgitation and an RVSP of 62. Blood work showed white blood cell count 13.5, hemoglobin 10.5, platelets 134, d-dimer 3.8, potassium 5.3, BUN 99, creatinine 5.09, pro-calcitonin greater than 100, troponin 0.1, CRP 58, coronavirus positive. Chest x-ray showed bilateral interstitial pneumonia, cardiomegaly, small right pleural effusion. Patient was seen by nephrology and was placed on D5W with bicarb. Initial EKG was called atrial fibrillation however appears to have regular P waves, sinus rhythm with frequent PACs. Additionally there are nonspecific ST, T-wave abnormalities. 12/21/2020 Patient seen and examined resting comfortably in bed. IV Lasix was initiated yesterday. Urine output for the previous 24 hours was 1150 mL. Blood pressure 138/84 heart rate 119 afebrile maintaining oxygen saturation on nasal cannula. Telemetry tracings reviewed, he his having multi-focal atrial tachycardia with frequent PVC's and PAC's. Laboratory data reviewed, WBC 17, hemoglobin 8.9, platelets 170, sodium 140, potassium 3.7 and creatinine 1.92. GENERAL: Well-appearing, well-nourished and in no acute distress. NECK: Supple without JVD or thyromegaly. LUNGS: Bibasilar rales, scatterd rhonchi, no wheezes. Respiration equal and unlabored. HEART: Regular rate and rhythm with systolic ejection murmur at the base, no rubs or gallops. S1 and S2 heard. EXTREMITIES: Normal range of motion, no edema. No clubbing or cyanosis. Peripheral pulses intact. ASSESSMENT Sinus tachycardia with frequent PACs COVID-19 pneumonia Mildly elevated troponin related to COVID-19 infection and chronic kidney disease [place] on chronic diastolic heart failure Acute renal failure History of bioprosthetic aortic valve replacement History of moderate to severe mitral regurgitation and severe tricuspid regurgitation Pulmonary hypertension Anemia Hyperkalemia, resolved PLAN Repeat chest xray in the morning. Follow renal function and electrolytes in the morning. Increase lopressor to 50 mg TID. Continue diuresis. Nurse Practitioner note has been reviewed, I agree with a documented findings and plan of care. Patient was seen and examined. Objective - Vital Signs Vital signs: Vital Signs Temp 99.4 F 12/21/20 08:00 Pulse 119 H 12/21/20 08:00 Resp 28 H 12/21/20 08:00 BP 138/84 12/21/20 08:00 Pulse Ox 94 L 12/21/20 08:00 Intake & Output 12/20/20 12/21/20 12/21/20 18:59 06:59 18:59 Intake Total 480 Output Total 425 725 Balance 55 -725 Weight 50 kg Intake: Oral 480 Output: Urine 425 725 Other: Voiding Method Urinal # Bowel Movements 1 - Labs CBC & Chem 7: 12/21/20 08:20 12/21/20 08:20 Labs: Abnormal Lab Results - Last 24 Hours (Table) 12/21/20 12/21/20 Range/Units 08:20 08:20 WBC 17.0 H (3.8-10.6) k/uL RBC 3.19 L (4.30-5.90) m/uL Hgb 8.9 L (13.0-17.5) gm/dL Hct 28.2 L (39.0-53.0) % Neutrophils # 15.9 H (1.3-7.7) k/uL Lymphocytes # 0.3 L (1.0-4.8) k/uL BUN 59 H (9-20) mg/dL Creatinine 1.92 H (0.66-1.25) mg/dL Glucose 109 H (74-99) mg/dL Total Protein 5.7 L (6.3-8.2) g/dL Albumin 2.8 L (3.5-5.0) g/dL Microbiology - Last 24 Hours (Table) 12/15/20 18:16 Blood Culture - Preliminary Blood No Growth after 120 hours 12/15/20 18:16 Blood Culture - Preliminary Blood No Growth after 120 hours
--- NOTE | 2020-12-21 12:57 | P.PN ---
Subjective Progress Note Date: 12/21/20 Principal diagnosis: COPD exacerbation, A. fib with RVR, pneumonia This is a pleasant 89-year-old gentleman who follows with Dr. Boss as his primary care provider. He has history of hypertension, CVA, coronary artery disease with previous coronary artery bypass grafting, COPD, seizure disorder, previous smoker, lung cancer. He presented to the emergency room yesterday with complaints of increasing shortness of breath, chest tightness and wheezing. He was found to be in atrial fibrillation with a rapid ventricular response. Chest x-ray revealed bilateral interstitial pneumonia. Cardiomegaly. Small right pleural effusion and pleural reaction at the right lung base. White count 17.4. Hemoglobin 9.1. Sodium 139. Potassium 5.4. Creatinine 3.75. Presenting crea tinine was 5.09. Pro-calcitonin greater than 100. Troponin 0.105. C-reactive protein 58.6. Andres virus positive. He is seen today in consultation on the selective care unit. The patient is a poor historian. Unable to determine when his symptoms started. He is currently resting fairly comfortably in bed. Awake and alert in no acute distress. Maintaining O2 saturations in the high 90s on 3 L/m per nasal cannula. Afebrile. Slightly tachycardic. Ultrasound of the kidneys revealed no hydronephrosis or nephrolithiasis bilaterally. His initiated on a Cardizem drip at 10 mg per hour, heparin drip and antibiotics in the form of ceftriaxone and azithromycin. His initiated on Decadron 10 mg IV daily. Progress note dated 12/17/2020. 89-year-old black male, seen by our nurse practitioner yesterday in consultation. The patient has a history of hypertension, CVA, coronary disease, previous bypass grafting, COPD, seizure disorder, and lung cancer. The patient apparently presented to the emergency department with complaints of increasing shortness of breath, chest tightness, and wheezing. He was found to have atrial fibrillation with RVR, and also was positive for coronavirus infection. The patient seems be recently comfortable this time. He is on 3 L. Saturations are 97%. Heart rate 86. Respiratory rate 18. No audible wheezing, use of accessory muscles, or conversational dyspnea. The patient is not a particularly good historian. White count 15.8, hemoglobin 7.9, hematocrit 24.8, and platelet count 120,000. PTT is 37.8. Sodium 141, potassium 3.4, chlorides 104, CO2 25, anion gap 12, BUN 97, and creatinine 2.67. Initial lactic acid 2.2. Repeat lactic acid 1.1. Chest x-ray shows bilateral interstitial pneumonia with cardiomegaly. There is a small right-sided pleural effusion. Progress note dated 12/18/2020. 89-year-old black male, seen in consultation 2 days ago. I saw the patient yesterday in follow-up. The patient has a history of essential hypertension, CVA, coronary artery disease, previous bypass grafting, COPD, seizure disorder, and lung cancer. The patient presented to the emergency department with complaints of increasing shortness of breath, chest tightness and wheezing, and was found to have atrial fibrillation with RVR, and also tested positive for coronavirus infection. Currently, the patient appears to be relatively comforta ble. He is on 3 L nasal cannula, and his saturations are 100%. Blood pressure 112/72, heart rate 89, respiratory rate 18, and his temperature is 97.8. Labs show a white count of 14.6, hemoglobin 7.8, hematocrit 25.6, and platelet count 121,000. D-dimer is 2.0. Sodium 141, potassium 3.8, chlorides 108, CO2 26, anion gap 7, BUN 76, creatinine 2.19. No recent chest x-ray to review. The patient is seen today 12/19/2020 in follow-up on the cardiac floor. He is currently resting comfortably in bed. Awake, alert and in no acute distress. He is maintaining O2 saturation in the 90s on 3 L/m per nasal cannula. Lactated Ringer's at 75 ML's per hour. He's been afebrile. Hemodynamically stable. Chest x-ray reveals evidence of congestive heart failure and underlying COPD. Chronic pleural reaction. Blood cultures reveal no growth. White count 12.4. Hemoccult was 7.7. Platelets 113. Sodium 141. Potassium 4.0. Creatinine 2.09. ProBNP 36,700. He remains on Decadron, Lovenox, vitamin supplements. Antibiotics in the form of Unasyn. The patient is seen today 12/20/2020 in follow-up on the selective care unit. He is currently resting comfortably in bed. Awake and alert in no acute distress. Rectal maintaining O2 saturations in the 90s on 3 L/m per nasal cannula. She's been afebrile. Hemodynamically stable. Blood cultures reveal no growth. No new labs today. He remains on Decadron, Lovenox, vitamin supplements. Antibiotics in the form of Unasyn. Lactated Ringer's at 75 ML's per hour. The patient is seen today 12/21/2020 in follow-up on the selective care unit. He has currently resting comfortably in bed. Awake and alert in no acute distress. He is on 2 L/m per nasal cannula. O2 saturation 98%. White count 17.0. Hemoglobin 8.9. Sodium 140. Potassium 3.7. Creatinine 1.92. He is continued on Unasyn. Remains on Decadron, Lovenox, vitamin supplements. Echocardiogram reveals moderate impaired left ventricular systolic function with ejection fraction 40-45%. Severe pulmonary hypertension. Objective - Vital Signs Vital signs: Vital Signs Temp 99 F 12/21/20 11:44 Pulse 105 H 12/21/20 11:44 Resp 24 12/21/20 11:44 BP 137/87 12/21/20 11:44 Pulse Ox 94 L 12/21/20 08:00 Intake & Output 12/20/20 12/21/20 12/21/20 18:59 06:59 18:59 Intake Total 480 240 Output Total 425 725 Balance 55 -725 240 Weight 50 kg Intake: Oral 480 240 Output: Urine 425 725 Other: Voiding Method Urinal # Bowel Movements 1 - Exam No acute distress, pleasant 89-year-old gentleman, poor historian, currently on 2 L nasal cannula, with saturations at 94%. No obvious respiratory distress. HEENT examination is grossly unremarkable. Neck supple. Full range of motion. No adenopathy thyromegaly or neck vein distention. Cardiovascular examination reveals regular rhythm rate. S1-S2 normal. No S3 or S4. No discernible murmur noted. Heart rate 105 bpm. Lungs reveal scattered rhonchi and crackles. Breath sounds equal bilaterally. He is not taking deep breaths. No distinct wheezes noted. Abdomen soft bowel sounds are heard. No masses or tenderness. Extremities are intact. No cyanosis clubbing or edema. Skin is without rash or lesion. Neurologic examination is brief but nonfocal. - Labs CBC & Chem 7: 12/21/20 08:20 12/21/20 08:20 Labs: Abnormal Lab Results - Last 24 Hours (Table) 12/21/20 12/21/20 Range/Units 08:20 08:20 WBC 17.0 H (3.8-10.6) k/uL RBC 3.19 L (4.30-5.90) m/uL Hgb 8.9 L (13.0-17.5) gm/dL Hct 28.2 L (39.0-53.0) % Neutrophils # 15.9 H (1.3-7.7) k/uL Lymphocytes # 0.3 L (1.0-4.8) k/uL BUN 59 H (9-20) mg/dL Creatinine 1.92 H (0.66-1.25) mg/dL Glucose 109 H (74-99) mg/dL Total Protein 5.7 L (6.3-8.2) g/dL Albumin 2.8 L (3.5-5.0) g/dL Microbiology - Last 24 Hours (Table) 12/15/20 18:16 Blood Culture - Preliminary Blood No Growth after 120 hours 12/15/20 18:16 Blood Culture - Preliminary Blood No Growth after 120 hours Assessment and Plan Assessment: 1 Acute hypoxemic respiratory failure secondary to acute COVID-19 pneumonia, cannot rule out underlying bacterial pneumonia. Currently on Unasyn 2 Leukocytosis, pro-calcitonin greater than 100 secondary to above, improving 3 Acute exacerbation of systolic congestive heart failure 4 Acute renal failure with a history of chronic renal failure secondary to nephrosclerosis 5 Atrial fibrillation with a rapid ventricular response, currently atrial tachycardia, on beta blockers 6 Recent CVA 7 Troponin leak 8 Coronary artery disease with previous history of coronary artery bypass grafting 9 Chronic obstructive pulmonary disease 10 Remote history of lung cancer, details of which are unclear 11 Former smoker Plan: The patient was seen and evaluated by Dr. Akers Remains on IV diuretics Follow-up chest x-ray in a.m. Remains on Decadron, Lovenox, vitamin supplements We will continue to follow I, the cosigning physician, performed a history & physical examination of the patient. Lungs sounds with few scattered rhonchi, crackles in the bilateral bases. Maintaining good O2 saturations in the 90s on 2 L/m per nasal cannula. I discussed the assessment and plan of care with my nurse practitioner, Adia Guan. I attest to the above note as dictated by her.
--- NOTE | 2020-12-21 13:07 | P.PN ---
Subjective Progress Note Date: 12/21/20 Fitz Blue, is an 89 year old male who presented to [facility] emergency room with a chief complaint of worsening shortness of breath, patient stated that he started having shortness of breath on the day of presentation that progressed to significant breathing difficulty EMS were sushma smith, they found patient to be in significant respiratory distress he was started on nonrebreather mask and was treated with IV Solu-Medrol and DuoNeb updrafts and was brought in to [facility] emergency room. In the emergency room patient was evaluated, his vital examination on presentation revealed a temperature of 98.6 pulse 142 respiration 18 blood pressure 99/78 pulse ox 94% on room air, laboratory data on presentation revealed a white blood count of 13.5 hemoglobin 10.5 platelet count 134 d-dimer 3.88, sodium 140 potassium 5.3 chloride 106 CO2 16 BUN 19 9 creatinine 5.09 glucose level was 136 plasma lactic acid was 3.5 troponin level was elevated at 0.105 C-reactive p rotein 58.6 Procalcitonin more than 100 and coronavirus PCR was positive. Chest x-ray was done in the emergency room and revealed bilateral interstitial pneumonia, cardiomegaly, small right pleural effusion and pleural reaction , EKG was done in the emergency room and revealed atrial fibrillation with rapid ventricular response and nonspecific ST abnormality . Patient was admitted to telemetry floor for further evaluation and treatment. Patient was admitted to [facility] in August 2020 after having a stroke, he was discharged to [facility] on the [facility] for rehabilit ation and was discharged home about 6 weeks ago. His past medical history is also significant for hypertension, hyperlipidemia, coronary artery disease with history of coronary artery bypass graft surgery, history of COPD, history of pulmonary hypertension, history of multiple lumbar compression vertebral fractures, history of anemia, history of carotid stenosis, history of osteoarthritis, and history of protein calorie malnutrition. On 12/17/2020 patient was seen and examined on the medical floor he is alert and oriented 3 in no apparent distress he is complaining of nausea otherwise he de nies any complaints there is no fever or chills no headache or dizziness no chest pain no shortness of breath no cough no vomiting no abdominal pain no diarrhea no blood in the stools no burning with urination no frequency or urgency and no hematuria. Kidney function has improved significantly since yesterday, otherwise no change in condition. On 12/18/2020 patient was seen and examined on the medical floor he is alert and oriented 3 in no apparent distress he is complaining of nausea otherwise he denies any complaints there is no fever or chills no headache or dizziness no chest pain , he has some shortness of breath no cough no vomiting no abdominal pain no diarrhea no blood in the stools no burning with urination no frequency or urgency and no hematuria. Kidney function has improved significantly since yesterday, otherwise no change in condition. On 12/19/2020 patient was seen and examined on the medical floor he is alert and oriented 3 in no apparent distress he is complaining of nausea otherwise he denies any complaints there is no fever or chills no headache or dizziness no chest pain , he has some shortness of breath no cough no vomiting no abdominal pain no diarrhea no blood in the stools no burning with urination no frequency or urgency and no hematuria. Kidney function has improved significantly since yesterday, otherwise no change in condition. BNP is significantly elevated, patient still having shortness of breath, will check Echocardiogram and consult cardiology. On 12/20/2020 patient was seen and examined on the medical floor he is alert and oriented 3 in no apparent distress he is complaining of nausea otherwise he denies any complaints there is no fever or chills no headache or dizziness no chest pain , he has some shortness of breath no cough no vomiting no abdominal pain no diarrhea no blood in the stools no burning with urination no frequency or urgency and no hematuria. Kidney function has improved significantly since yesterday, otherwise no change in condition. BNP is significantly elevated, patient still having shortness of breath, will check Echocardiogram and consult cardiology. patient was started on IV lasix, awaiting Echo. On 12/20/2020 patient was seen and examined on the medical floor he is alert and oriented 3 in no apparent distress he is complaining of nausea otherwise he denies any complaints there is no fever or chills no headache or dizziness no chest pain , he has some shortness of breath no cough no vomiting no abdominal pain no diarrhea no blood in the stools no burning with urination no frequency or urgency and no hematuria. Kidney function has improved significantly since yesterday, otherwise no change in condition. BNP is significantly elevated, patient still having shortness of breath, will check Echocardiogram and consult cardiology. patient was started on IV lasix, repeat CXR ordered for tomorrow. Objective - Vital Signs Vital signs: Vital Signs Temp 99 F 12/21/20 11:44 Pulse 105 H 12/21/20 11:44 Resp 24 12/21/20 11:44 BP 137/87 12/21/20 11:44 Pulse Ox 94 L 12/21/20 08:00 Intake & Output 12/20/20 12/21/20 12/21/20 18:59 06:59 18:59 Intake Total 480 240 Output Total 425 725 Balance 55 -725 240 Weight 50 kg Intake: Oral 480 240 Output: Urine 425 725 Other: Voiding Method Urinal # Bowel Movements 1 - Exam In general patient is alert and oriented x3 in no distress HEENT head normocephalic and atraumatic Neck is supple no JVD no goiter no lymphadenopathy no carotid bruit Chest examination is clear to auscultation no crackles no wheezing Cardiac exam reveals regular heart sounds S1 and S2 no gallops no murmurs Abdomen is soft nontender no organomegaly with normal bowel sounds Extremity exam reveals no edema no cyanosis or clubbing Neurological examination reveals no gross focal deficits - Labs CBC & Chem 7: 12/21/20 08:20 12/21/20 08:20 Labs: Abnormal Lab Results - Last 24 Hours (Table) 12/21/20 12/21/20 Range/Units 08:20 08:20 WBC 17.0 H (3.8-10.6) k/uL RBC 3.19 L (4.30-5.90) m/uL Hgb 8.9 L (13.0-17.5) gm/dL Hct 28.2 L (39.0-53.0) % Neutrophils # 15.9 H (1.3-7.7) k/uL Lymphocytes # 0.3 L (1.0-4.8) k/uL BUN 59 H (9-20) mg/dL Creatinine 1.92 H (0.66-1.25) mg/dL Glucose 109 H (74-99) mg/dL Total Protein 5.7 L (6.3-8.2) g/dL Albumin 2.8 L (3.5-5.0) g/dL Microbiology - Last 24 Hours (Table) 12/15/20 18:16 Blood Culture - Preliminary Blood No Growth after 120 hours 12/15/20 18:16 Blood Culture - Preliminary Blood No Growth after 120 hours Assessment and Plan Plan: 1. COVID-19 infection 2. Bilateral interstitial pneumonia, possibly related to COVID-19, however bacterial superimposed infection cannot be ruled out 3. Evidence of sepsis, with leukocytosis, hypotension, and elevated lactic acid 4. Acute on chronic renal failure, creatinine on admission in August was 1.5 nephrology consultation requested 5. Severe hyperkalemia 6. Underlying history of COPD 7. Recent history of stroke in August 2020 8. Underlying history of hypertension 9. Underlying history of hyperlipidemia 10. Underlying history of coronary artery disease with previous history of coronary artery bypass graft surgery 11. Underlying history of multiple lumbar compression vertebral fractures. 12. Previous history of anemia and history of GI bleed, Hgb down to 7.7 will consult GI At this time patient is admitted to telemetry floor He received IV fluid boluses He was started on IV heparin and IV Cardizem drip He was started on IV antibiotic Rocephin and Zithromax He was started on steroids prednisone 40 mg daily Pulmonary, nephrology, infectious disease and cardiology consultation requested. Prognosis is poor due to advanced age, severity of illness, and multiple underlying medical conditions
--- NOTE | 2020-12-21 15:40 | P.PN ---
Subjective Progress Note Date: 12/21/20 Principal diagnosis: Anemia The patient was seen and examined lying in bed. Yesterday it was noted that he had a large bowel movement that was dark. Today he has had no further dark bowel movements. Hemoglobin his improved at 8.9. He denies any abdominal pain, nausea, or vomiting. Objective - Vital Signs Vital signs: Vital Signs Temp 99 F 12/21/20 11:44 Pulse 105 H 12/21/20 11:44 Resp 24 12/21/20 11:44 BP 137/87 12/21/20 11:44 Pulse Ox 94 L 12/21/20 08:00 Intake & Output 12/20/20 12/21/20 12/21/20 18:59 06:59 18:59 Intake Total 480 240 Output Total 425 725 Balance 55 -725 240 Weight 50 kg Intake: Oral 480 240 Output: Urine 425 725 Other: Voiding Method Urinal # Bowel Movements 1 - Exam General appearance: The patient is alert, oriented, appears in no acute distress. HET: Head is normocephalic and atraumatic. Conjunctiva pink. Sclera anicteric. Neck: Supple without lymphadenopathy. Abdomen: Soft, nontender, nondistended with bowel sounds. No guarding or rig idity. Extremities: Normal skin color and turgor. No pedal edema Skin: No rashes, no jaundice Neurological: No focal deficits. Alert and oriented 3. - Labs CBC & Chem 7: 12/21/20 08:20 12/21/20 08:20 Labs: Abnormal Lab Results - Last 24 Hours (Table) 12/21/20 12/21/20 Range/Units 08:20 08:20 WBC 17.0 H (3.8-10.6) k/uL RBC 3.19 L (4.30-5.90) m/uL Hgb 8.9 L (13.0-17.5) gm/dL Hct 28.2 L (39.0-53.0) % Neutrophils # 15.9 H (1.3-7.7) k/uL Lymphocytes # 0.3 L (1.0-4.8) k/uL BUN 59 H (9-20) mg/dL Creatinine 1.92 H (0.66-1.25) mg/dL Glucose 109 H (74-99) mg/dL Total Protein 5.7 L (6.3-8.2) g/dL Albumin 2.8 L (3.5-5.0) g/dL Microbiology - Last 24 Hours (Table) 12/15/20 18:16 Blood Culture - Preliminary Blood No Growth after 120 hours 12/15/20 18:16 Blood Culture - Preliminary Blood No Growth after 120 hours Assessment and Plan (1) Anemia, normocytic normochromic Narrative/Plan: 89-year-old male with multiple medical comorbidities admitted for shortness of breath and Covid-19 infection. Patient was noted to have anemia on initial ho spitalization, with a continued drop in his hemoglobin. He reports his last colonoscopy was approximately one year ago however reports are not available at this time. He also underwent an EGD in August of this year at [facility] with findings including a small hiatal hernia, gastritis, and LA grade B esophagitis as part of a workup for his anemia at that time. He denies any signs or symptoms of GI bleeding. Anemia is likely multifactorial related to chronic disease and acute on chronic renal failure. Current Visit: No Status: Acute Code(s): D64.9 - ANEMIA, UNSPECIFIED SNOMED Code(s): 36926028 (2) Acute on chronic renal failure Current Visit: Yes Status: Acute Code(s): N17.9 - ACUTE KIDNEY FAILURE, UNSPECIFIED; N18.9 - CHRONIC KIDNEY DISEASE, UNSPECIFIED SNOMED Code(s): 061009549 (3) COVID-19 Current Visit: Yes Status: Acute Code(s): U07.1 - COVID-19 SNOMED Code(s): 409270668 (4) COPD (chronic obstructive pulmonary disease) Current Visit: Yes Status: Acute Code(s): J44.9 - CHRONIC OBSTRUCTIVE PULMONARY DISEASE, UNSPECIFIED SNOMED Code(s): 72877470 Plan: Continue symptomatic and supportive care Iron studies reviewed Stool Hemoccult ordered, not collected IV iron ordered Daily CBC, transfuse for hemoglobin less than 7 Consider hematology consult No plans for endoscopic evaluation at this time, patient recently had endoscopic evaluation earlier this year. If patient has further drop in hemoglobin or signs of GI bleed, will consider possible endoscopic evaluation Thank you for this consultation, we will continue to follow. Dr. Hall I agree with the dictator's note, documented as a scribe by Sobia Phelps
--- NOTE | 2020-12-21 15:44 | PN ---
PROGRESS NOTE DATE OF SERVICE: 12/21/2020 REASON FOR FOLLOWUP: Pneumonia. INTERVAL HISTORY: The patient is afebrile. The patient is breathing comfortably. The patient denies having any chest pain. Mentions occasional cough, not bringing up any sputum. No vomiting. No abdominal pain or diarrhea. PHYSICAL EXAMINATION: Blood pressure 137/87, pulse 105, temperature 99. He is 94% on 2 L nasal cannula. General description is an elderly male lying in bed in no distress. RESPIRATORY SYSTEM: Unlabored breathing, clear to auscultation anteriorly. HEART: S1, S2. Regular rate and rhythm. ABDOMEN: Soft, no tenderness. LABS: Hemoglobin 8.9, white count 17, BUN of 59, creatinine 1.92. Blood culture has been negative. DIAGNOSTIC IMPRESSION AND PLAN: Patient admitted to the hospital with fever, shortness of breath, cough, pneumonia with concern for possible aspiration etiology. Patient is on Unasyn. Overall clinical improvement. The patient did have slight worsening of the white count, probably related steroid effect as clinically not showing any worsening and we will monitor closely. Continue supportive care. MMODL / IJN: [id number] /
[2020-12-21 16:40] LABS: Appearance,Urine Clear (Clear); Bilirubin,Urine Negative (Negative); Blood,Urine Negative (Negative); Color,Urine Yellow; Glucose,Urine (UA) Negative (Negative); Ketones,Urine Negative (Negative); Leukocyte Esterase,Urine Negative (Negative); Nitrite,Urine Negative (Negative); PH, Urine 5.5 (5.0-8.0); Protein,Urine Negative (Negative); Specific Gravity,Urine 1.013 (1.001-1.035); Urobilinogen,Urine <2.0 mg/dL (<2.0)
--- NOTE | 2020-12-22 07:32 | XR ---
EXAMINATION TYPE: XR chest 1V portable DATE OF EXAM: 12/22/2020 CLINICAL HISTORY: Difficulty breathing and COPD progress study. TECHNIQUE: Single AP portable upright view of the chest is obtained. COMPARISON: Chest x-ray from 3 days earlier FINDINGS: Overlying sternal wires are redemonstrated. Surgical change of cardiac valve redemonstrated . Cardiomegaly with atherosclerotic aorta redemonstrated. Chronic parenchymal changes with bilateral multifocal opacities more prominent in the right lung. Tiny bilateral pleural effusions. Osseous stru ctures are intact. Axillary vascular calcifications redemonstrated. IMPRESSION: Cardiomegaly and chronic parenchymal changes with right greater than left bilateral multi focal opacities and tiny bilateral pleural effusions redemonstrated. No significant change from most recent x-ray.
[2020-12-22 08:42] LABS: Albumin 2.9 g/dL (3.5-5.0); Calcium 8.7 mg/dL (8.4-10.2); Potassium 3.9 mmol/L (3.5-5.1); Total Bilirubin 0.6 mg/dL (0.2-1.3); Total Protein 5.8 g/dL (6.3-8.2)
[2020-12-22 08:52] LABS: Basophils # (A) 0.1 k/uL (0-0.2); Basophils % (A) 1 %; Eosinophils % (A) 0 %; HCT 27.5 % (39.0-53.0); HGB 8.8 gm/dL (13.0-17.5); Lymphocytes # (A) 0.4 k/uL (1.0-4.8); Lymphocytes % (A) 2 %; MCH 27.3 pg (25.0-35.0); MCHC 31.9 g/dL (31.0-37.0); MCV 85.6 fL (80.0-100.0); Mean Platelet Volume 9.2; Monocytes # (A) 0.3 k/uL (0-1.0); Monocytes % (A) 2 %; Neutrophils # (A) 17.4 k/uL (1.3-7.7); Neutrophils % (A) 94 %; Platelet Count 178 k/uL (150-450); RBC 3.21 m/uL (4.30-5.90); RDW 15.7 % (11.5-15.5); WBC 18.5 k/uL (3.8-10.6)
[2020-12-22] MEDS: AMPICILLIN-SULBACTAM 3 GM in SODIUM CHLORIDE 0.9% 100 ML IVPB SCH ×2 (09:10→20:41)
[2020-12-22] MEDS: ASCORBIC ACID 500 MG TAB PO SCH (09:11)
[2020-12-22] MEDS: DEXAMETHASONE SOD PHOSPHATE 10 MG/ML 1 ML VIAL IV SCH (09:11)
[2020-12-22] MEDS: ASPIRIN 81 MG PO SCH (09:11)
[2020-12-22] MEDS: FUROSEMIDE 10 MG/ML 4 ML VIAL IV SCH (09:11)
[2020-12-22] MEDS: CHOLECALCIFEROL 25 MCG (1000 IU) TABLET PO SCH (09:11)
[2020-12-22] MEDS: METOPROLOL TARTRATE 50 MG TAB PO SCH ×3 (09:11→20:41)
[2020-12-22] MEDS: ZINC SULFATE 220 MG CAP PO SCH (09:11)
[2020-12-22] MEDS: ENOXAPARIN 30 MG/0.3 ML SYRINGE SQ SCH (09:12)
--- NOTE | 2020-12-22 09:28 | P.PN ---
Subjective Progress Note Date: 12/22/20 Principal diagnosis: This is an 89-year-old male seen in consultation because of acute kidney injury, covered pneumonia. He came in with shortness of breath. Currently he is awake alert but profoundly weak is on nasal cannula oxygen. He has mild shortness of breath no nausea vomiting poor appetite Known with coronary artery disease, history of CABG, COPD seizure disorder and a recent stroke in August 2020 Visit vital signs are stable blood pressure is 106-134 systolic Afebrile urine output is documented at 11 50 mL for the last 24, creatinine going down Objective - Vital Signs Vital signs: Vital Signs Temp 98.0 F 12/22/20 04:17 Pulse 104 H 12/22/20 04:17 Resp 18 12/22/20 04:17 BP 117/96 12/22/20 04:17 Pulse Ox 95 12/22/20 04:17 Intake & Output 12/21/20 12/22/20 12/22/20 18:59 06:59 18:59 Intake Total 480 Output Total 450 Balance 480 -450 Intake: Oral 480 Output: Urine 450 Other: Voiding Method Urinal # Bowel Movements 1 On examination profoundly weak but awake alert oriented HEENT exam no JVP neck is supple no facial asymmetry Lungs are significant for bilateral coarse crackles fair air entry bilaterally Heart sounds are unremarkable for any murmur rub gallop Abdomen soft nontender Extremity exam was 1+ edema Neurologically awake alert oriented but profoundly weak - Labs CBC & Chem 7: 12/22/20 07:56 12/22/20 07:56 Labs: Abnormal Lab Results - Last 24 Hours (Table) 12/21/20 12/22/20 12/22/20 Range/Units 08:20 07:56 07:56 WBC 18.5 H (3.8-10.6) k/uL RBC 3.21 L (4.30-5.90) m/uL Hgb 8.8 L (13.0-17.5) gm/dL Hct 27.5 L (39.0-53.0) % RDW 15.7 H (11.5-15.5) % Neutrophils # 17.4 H (1.3-7.7) k/uL Lymphocytes # 0.4 L (1.0-4.8) k/uL BUN 59 H 67 H (9-20) mg/dL Creatinine 1.92 H 1.82 H (0.66-1.25) mg/dL Glucose 109 H 118 H (74-99) mg/dL Total Protein 5.7 L 5.8 L (6.3-8.2) g/dL Albumin 2.8 L 2.9 L (3.5-5.0) g/dL Microbiology - Last 24 Hours (Table) 12/15/20 18:16 Blood Culture - Final Blood No Growth after 144 hours 12/15/20 18:16 Blood Culture - Final Blood No Growth after 144 hours Assessment and Plan Assessment: Impression 1. Acute kidney injury secondary cord pneumonia improving, creatinine on admission is 5 and is now down to 1.8 to, with adequate urine output 2. Chronic kidney disease creatinine has been 1.7-2.1 earlier this year August and October 2020. Etiology is nephrosclerosis, urinalysis benign no proteinuria dated 12/21/2020 3. Anemia hemoglobin is 8.8 4. Status post Venofer infusion 5. Code with pneumonia, possibly improved chest x-ray Recommendation 1. Continue current medication including Lasix at 40 every 12 with close monitoring of labs blood pressure. He does have mild edema and his chest x-ray dose did not show CHF. 2. Watch hemoglobin. 3. Continue to monitor closely monitor closely
--- NOTE | 2020-12-22 11:55 | P.PN ---
Subjective Progress Note Date: 12/22/20 Principal diagnosis: COPD exacerbation, A. fib with RVR, pneumonia This is a pleasant 89-year-old gentleman who follows with Dr. Boss as his primary care provider. He has history of hypertension, CVA, coronary artery disease with previous coronary artery bypass grafting, COPD, seizure disorder, previous smoker, lung cancer. He presented to the emergency room yesterday with complaints of increasing shortness of breath, chest tightness and wheezing. He was found to be in atrial fibrillation with a rapid ventricular response. Chest x-ray revealed bilateral interstitial pneumonia. Cardiomegaly. Small right pleural effusion and pleural reaction at the right lung base. White count 17.4. Hemoglobin 9.1. Sodium 139. Potassium 5.4. Creatinine 3.75. Presenting crea tinine was 5.09. Pro-calcitonin greater than 100. Troponin 0.105. C-reactive protein 58.6. Andres virus positive. He is seen today in consultation on the selective care unit. The patient is a poor historian. Unable to determine when his symptoms started. He is currently resting fairly comfortably in bed. Awake and alert in no acute distress. Maintaining O2 saturations in the high 90s on 3 L/m per nasal cannula. Afebrile. Slightly tachycardic. Ultrasound of the kidneys revealed no hydronephrosis or nephrolithiasis bilaterally. His initiated on a Cardizem drip at 10 mg per hour, heparin drip and antibiotics in the form of ceftriaxone and azithromycin. His initiated on Decadron 10 mg IV daily. Progress note dated 12/17/2020. 89-year-old black male, seen by our nurse practitioner yesterday in consultation. The patient has a history of hypertension, CVA, coronary disease, previous bypass grafting, COPD, seizure disorder, and lung cancer. The patient apparently presented to the emergency department with complaints of increasing shortness of breath, chest tightness, and wheezing. He was found to have atrial fibrillation with RVR, and also was positive for coronavirus infection. The patient seems be recently comfortable this time. He is on 3 L. Saturations are 97%. Heart rate 86. Respiratory rate 18. No audible wheezing, use of accessory muscles, or conversational dyspnea. The patient is not a particularly good historian. White count 15.8, hemoglobin 7.9, hematocrit 24.8, and platelet count 120,000. PTT is 37.8. Sodium 141, potassium 3.4, chlorides 104, CO2 25, anion gap 12, BUN 97, and creatinine 2.67. Initial lactic acid 2.2. Repeat lactic acid 1.1. Chest x-ray shows bilateral interstitial pneumonia with cardiomegaly. There is a small right-sided pleural effusion. Progress note dated 12/18/2020. 89-year-old black male, seen in consultation 2 days ago. I saw the patient yesterday in follow-up. The patient has a history of essential hypertension, CVA, coronary artery disease, previous bypass grafting, COPD, seizure disorder, and lung cancer. The patient presented to the emergency department with complaints of increasing shortness of breath, chest tightness and wheezing, and was found to have atrial fibrillation with RVR, and also tested positive for coronavirus infection. Currently, the patient appears to be relatively comforta ble. He is on 3 L nasal cannula, and his saturations are 100%. Blood pressure 112/72, heart rate 89, respiratory rate 18, and his temperature is 97.8. Labs show a white count of 14.6, hemoglobin 7.8, hematocrit 25.6, and platelet count 121,000. D-dimer is 2.0. Sodium 141, potassium 3.8, chlorides 108, CO2 26, anion gap 7, BUN 76, creatinine 2.19. No recent chest x-ray to review. The patient is seen today 12/19/2020 in follow-up on the cardiac floor. He is currently resting comfortably in bed. Awake, alert and in no acute distress. He is maintaining O2 saturation in the 90s on 3 L/m per nasal cannula. Lactated Ringer's at 75 ML's per hour. He's been afebrile. Hemodynamically stable. Chest x-ray reveals evidence of congestive heart failure and underlying COPD. Chronic pleural reaction. Blood cultures reveal no growth. White count 12.4. Hemoccult was 7.7. Platelets 113. Sodium 141. Potassium 4.0. Creatinine 2.09. ProBNP 36,700. He remains on Decadron, Lovenox, vitamin supplements. Antibiotics in the form of Unasyn. The patient is seen today 12/20/2020 in follow-up on the selective care unit. He is currently resting comfortably in bed. Awake and alert in no acute distress. Rectal maintaining O2 saturations in the 90s on 3 L/m per nasal cannula. She's been afebrile. Hemodynamically stable. Blood cultures reveal no growth. No new labs today. He remains on Decadron, Lovenox, vitamin supplements. Antibiotics in the form of Unasyn. Lactated Ringer's at 75 ML's per hour. The patient is seen today 12/21/2020 in follow-up on the selective care unit. He has currently resting comfortably in bed. Awake and alert in no acute distress. He is on 2 L/m per nasal cannula. O2 saturation 98%. White count 17.0. Hemoglobin 8.9. Sodium 140. Potassium 3.7. Creatinine 1.92. He is continued on Unasyn. Remains on Decadron, Lovenox, vitamin supplements. Echocardiogram reveals moderate impaired left ventricular systolic function with ejection fraction 40-45%. Severe pulmonary hypertension. The patient is seen today 12/22/2020 in follow-up on the selective care unit. He is currently resting comfortably in bed. Maintaining O2 saturations in the 90s on 2 L/m per nasal cannula. Chest x-ray shows cardiomegaly with chronic parenchymal changes with right greater than left bilateral multifocal opacities and tiny bilateral pleural effusions. No change compared to previous. 0.9 normal saline @ 20 ML's per hour. He is continued on Decadron, Lovenox, vitamin supplements. Antibiotics in the form of Unasyn. Blood cultures reveal no growth. White count 18.5. Hemoglobin 8.8. Lymphocytes 0.4. Sodium 141. Potassium 3.9. Creatinine 1.82. Objective - Vital Signs Vital signs: Vital Signs Temp 98.0 F 12/22/20 04:17 Pulse 104 H 12/22/20 04:17 Resp 18 12/22/20 04:17 BP 117/96 12/22/20 04:17 Pulse Ox 95 12/22/20 04:17 Intake & Output 12/21/20 12/22/20 12/22/20 18:59 06:59 18:59 Intake Total 480 Output Total 450 Balance 480 -450 Intake: Oral 480 Output: Urine 450 Other: Voiding Method Urinal # Bowel Movements 1 - Exam No acute distress, pleasant 89-year-old gentleman, poor historian, currently on 2 L nasal cannula, with saturations at 95%. No obvious respiratory distress. HEENT examination is grossly unremarkable. Neck supple. Full range of motion. No adenopathy thyromegaly or neck vein distention. Cardiovascular examination reveals regular rhythm rate. S1-S2 normal. No S3 or S4. No discernible murmur noted. Heart rate 105 bpm. Lungs reveal scattered rhonchi and crackles. Breath sounds equal bilaterally. He is not taking deep breaths. No distinct wheezes noted. Abdomen soft bowel sounds are heard. No masses or tenderness. Extremities are intact. No cyanosis clubbing or edema. Skin is without rash or lesion. Neurologic examination is brief but nonfocal. - Labs CBC & Chem 7: 12/22/20 07:56 12/22/20 07:56 Labs: Abnormal Lab Results - Last 24 Hours (Table) 12/22/20 12/22/20 Range/Units 07:56 07:56 WBC 18.5 H (3.8-10.6) k/uL RBC 3.21 L (4.30-5.90) m/uL Hgb 8.8 L (13.0-17.5) gm/dL Hct 27.5 L (39.0-53.0) % RDW 15.7 H (11.5-15.5) % Neutrophils # 17.4 H (1.3-7.7) k/uL Lymphocytes # 0.4 L (1.0-4.8) k/uL BUN 67 H (9-20) mg/dL Creatinine 1.82 H (0.66-1.25) mg/dL Glucose 118 H (74-99) mg/dL Total Protein 5.8 L (6.3-8.2) g/dL Albumin 2.9 L (3.5-5.0) g/dL Microbiology - Last 24 Hours (Table) 12/15/20 18:16 Blood Culture - Final Blood No Growth after 144 hours 12/15/20 18:16 Blood Culture - Final Blood No Growth after 144 hours Assessment and Plan Assessment: 1 Acute hypoxemic respiratory failure secondary to acute COVID-19 pneumonia, cannot rule out underlying bacterial pneumonia. Currently on Unasyn 2 Leukocytosis, pro-calcitonin greater than 100 secondary to above, improving 3 Acute exacerbation of systolic congestive heart failure 4 Acute renal failure with a history of chronic renal failure secondary to nephrosclerosis 5 Atrial fibrillation with a rapid ventricular response, currently atrial tachycardia, on beta blockers 6 Recent CVA 7 Troponin leak 8 Coronary artery disease with previous history of coronary artery bypass gra fting 9 Chronic obstructive pulmonary disease 10 Remote history of lung cancer, details of which are unclear 11 Former smoker Plan: The patient was seen and evaluated by Dr. Akers Chest x-ray and labs reviewed Check a follow-up pro-calcitonin Remains on IV diuretics Remains on Decadron, Lovenox, vitamin supplements We will continue to follow I, the cosigning physician, performed a history & physical examination of the patient. Lungs sounds with few scattered rhonchi, crackles in the bilateral bases. Maintaining good O2 saturations in the 90s on 2 L/m per nasal cannula. I discussed the assessment and plan of care with my nurse practitioner, Adia Guan. I attest to the above note as dictated by her.
--- NOTE | 2020-12-22 11:57 | P.PN ---
Subjective Progress Note Date: 12/22/20 Principal diagnosis: Anemia The patient is seen lying comfortably in bed today. No abdominal pain reported but he is reporting some nausea. He did tolerate his breakfast. Hemoglobin is stable at 8.8 from 8.9 yesterday. No signs or symptoms of bleeding. Objective - Vital Signs Vital signs: Vital Signs Temp 98.0 F 12/22/20 04:17 Pulse 104 H 12/22/20 04:17 Resp 18 12/22/20 04:17 BP 117/96 12/22/20 04:17 Pulse Ox 95 12/22/20 04:17 Intake & Output 12/21/20 12/22/20 12/22/20 18:59 06:59 18:59 Intake Total 480 Output Total 450 Balance 480 -450 Intake: Oral 480 Output: Urine 450 Other: Voiding Method Urinal # Bowel Movements 1 - Exam On physical examination, patient appears comfortable in no apparent distress. HEAD: Normocephalic, atraumatic. EYES: No scleral icterus. No conjunctival injection. MOUTH: No lesions, tongue midline. NECK: Trachea midline, no gross abnormalities. ABDOMEN: Soft, thin and nontender. Bowel sounds are positive. No organomegaly. No guarding or rigidity. EXTREMITIES: No pedal edema. SKIN: No rashes, no jaundice. NEUROLOGIC: Alert and oriented x3. No focal deficits. - Labs CBC & Chem 7: 12/22/20 07:56 12/22/20 07:56 Labs: Abnormal Lab Results - Last 24 Hours (Table) 12/22/20 12/22/20 Range/Units 07:56 07:56 WBC 18.5 H (3.8-10.6) k/uL RBC 3.21 L (4.30-5.90) m/uL Hgb 8.8 L (13.0-17.5) gm/dL Hct 27.5 L (39.0-53.0) % RDW 15.7 H (11.5-15.5) % Neutrophils # 17.4 H (1.3-7.7) k/uL Lymphocytes # 0.4 L (1.0-4.8) k/uL BUN 67 H (9-20) mg/dL Creatinine 1.82 H (0.66-1.25) mg/dL Glucose 118 H (74-99) mg/dL Total Protein 5.8 L (6.3-8.2) g/dL Albumin 2.9 L (3.5-5.0) g/dL Microbiology - Last 24 Hours (Table) 12/15/20 18:16 Blood Culture - Final Blood No Growth after 144 hours 12/15/20 18:16 Blood Culture - Final Blood No Growth after 144 hours Assessment and Plan Assessment: Normocytic normochromic anemia 89-year-old male with multiple medical comorbidities admitted for shortness of breath and COVID-19 infection. Patient was noted to have anemia on initial hospitalization and continued to drop his hemoglobin. He should feels his last colonoscopy was approximately 1 year ago however reports are not available at this time. He underwent EGD and a . at [facility] with findings of small hiatal hernia, gastritis and esophagitis as part of workup of anemia. No signs or symptoms of GI bleeding and hemoglobin has remained stable at 8.8 from 8.9. Anemia is likely multifactorial and secondary to anemia of chronic disease as well as chronic renal failure. X line acute on chronic renal failure COVID-19 infection COPD Plan: Supportive care Iron studies reviewed Stool for occult blood ordered and not collected IV iron therapy ordered Continue to monitor hemoglobin and hematocrit and transfuse as needed Consider hematology consult if continued anemia plans for endoscopic evaluation at this time, if further fall in hemoglobin or signs or symptoms of GI bleeding develop will reconsider at that time Thank you for allowing us to participate in the care of the patient
[2020-12-22] MEDS: ONDANSETRON 4 MG/2 ML VIAL IVP PRN (13:23)
--- NOTE | 2020-12-22 13:26 | P.PN ---
Subjective Progress Note Date: 12/22/20 HISTORY OF PRESENT ILLNESS: This is a pleasant 89-year-old with past medical history significant for hypertension, stroke, coronary artery disease with previous CABG, bioprosthetic aortic valve replacement, COPD, seizure disorder, previous tobacco abuse and lenin ng cancer. He follows in the office with Dr. Cifuentes. Patient has been having increased shortness breath for last 2 days and therefore called EMS. Patient was found have COVID-19 pneumonia. Patient is somewhat poor historian and records were obtained from the office. Patient was last seen in 2018 in office. He had aortic valve replacement, had moderate to severe mitral regurgitation at that time with MARIVEL 01/19/20 which showed normal ejection fraction 60-65% with normal bioprosthetic aortic valve and moderate to severe mitral regurgitation with severe tricuspid regurgitation and an RVSP of 62. Blood work showed white blood cell count 13.5, hemoglobin 10.5, platelets 134, d-dimer 3.8, potassium 5.3, BUN 99, creatinine 5.09, pro-calcitonin greater than 100, troponin 0.1, CRP 58, coronavirus positive. Chest x-ray showed bilateral interstitial pneumonia, cardiomegaly, small right pleural effusion. Patient was seen by nephrology and was placed on D5W with bicarb. Initial EKG was called atrial fibrillation however appears to have regular P waves, sinus rhythm with frequent PACs. Addit ionally there are nonspecific ST, T-wave abnormalities. 12/21/2020 Patient seen and examined resting comfortably in bed. IV Lasix was initiated yesterday. Urine output for the previous 24 hours was 1150 mL. Blood pressure 138/84 heart rate 119 afebrile maintaining oxygen saturation on nasal cannula. Telemetry tracings reviewed, he his having multi-focal atrial tachycardia with frequent PVC's and PAC's. Laboratory data reviewed, WBC 17, hemoglobin 8.9, platelets 170, sodium 140, potassium 3.7 and creatinine 1.92. 12/22/2020 Patient remains tachycardic this morning with a heart rate in the 130s. However, after his metoprolol his heart rate is around 100. Blood pressure 136/57. He is afebrile. He is on 2 L nasal cannula with oxygen saturations greater than 92%. He remains on IV Lasix. Creatinine 1.82. BUN 67. PHYSICAL EXAM: Thorough physical exam not completed secondary to limited evaluation/examination due to Covid19 ASSESSMENT: Sinus tachycardia with frequent PACs COVID-19 pneumonia Mildly elevated troponin related to COVID-19 infection and chronic kidney disease Acuet on chronic diastolic heart failure Acute renal failure History of bioprosthetic aortic valve replacement History of moderate to severe mitral regurgitation and severe tricuspid regurgitation Pulmonary hypertension Anemia Hyperkalemia, resolved PLAN: Continue current dose of metoprolol Continue telemetry monitoring Continue IV Lasix Accurate I&O Daily weights Monitor kidney function Further recommendations pending patient's course Nurse practitioner note has been reviewed by physician. Signing provider agrees with the documented findings, assessment, and plan of care. Objective - Vital Signs Vital signs: Vital Signs Temp 98.0 F 12/22/20 08:00 Pulse 128 H 12/22/20 08:00 Resp 18 12/22/20 04:17 BP 136/57 12/22/20 08:00 Pulse Ox 92 L 12/22/20 08:00 Intake & Output 12/21/20 12/22/20 12/22/20 18:59 06:59 18:59 Intake Total 480 Output Total 450 150 Balance 480 -450 -150 Intake: Oral 480 Output: Urine 450 150 Other: Voiding Method Urinal # Bowel Movements 1 - Labs CBC & Chem 7: 12/22/20 07:56 12/22/20 07:56 Labs: Abnormal Lab Results - Last 24 Hours (Table) 12/22/20 12/22/20 Range/Units 07:56 07:56 WBC 18.5 H (3.8-10.6) k/uL RBC 3.21 L (4.30-5.90) m/uL Hgb 8.8 L (13.0-17.5) gm/dL Hct 27.5 L (39.0-53.0) % RDW 15.7 H (11.5-15.5) % Neutrophils # 17.4 H (1.3-7.7) k/uL Lymphocytes # 0.4 L (1.0-4.8) k/uL BUN 67 H (9-20) mg/dL Creatinine 1.82 H (0.66-1.25) mg/dL Glucose 118 H (74-99) mg/dL Total Protein 5.8 L (6.3-8.2) g/dL Albumin 2.9 L (3.5-5.0) g/dL Microbiology - Last 24 Hours (Table) 12/15/20 18:16 Blood Culture - Final Blood No Growth after 144 hours 12/15/20 18:16 Blood Culture - Final Blood No Growth after 144 hours
--- NOTE | 2020-12-22 15:39 | P.PN ---
Subjective Progress Note Date: 12/22/20 Fitz Blue, is an 89 year old male who presented to [facility] emergency room with a chief complaint of worsening shortness of breath, patient stated that he started having shortness of breath on the day of presentation that progressed to significant breathing difficulty EMS were sushma smith, they found patient to be in significant respiratory distress he was started on nonrebreather mask and was treated with IV Solu-Medrol and DuoNeb updrafts and was brought in to [facility] emergency room. In the emergency room patient was evaluated, his vital examination on presentation revealed a temperature of 98.6 pulse 142 respiration 18 blood pressure 99/78 pulse ox 94% on room air, laboratory data on presentation revealed a white blood count of 13.5 hemoglobin 10.5 platelet count 134 d-dimer 3.88, sodium 140 potassium 5.3 chloride 106 CO2 16 BUN 19 9 creatinine 5.09 glucose level was 136 plasma lactic acid was 3.5 troponin level was elevated at 0.105 C-reactive p rotein 58.6 Procalcitonin more than 100 and coronavirus PCR was positive. Chest x-ray was done in the emergency room and revealed bilateral interstitial pneumonia, cardiomegaly, small right pleural effusion and pleural reaction , EKG was done in the emergency room and revealed atrial fibrillation with rapid ventricular response and nonspecific ST abnormality . Patient was admitted to telemetry floor for further evaluation and treatment. Patient was admitted to [facility] in August 2020 after having a stroke, he was discharged to [facility] on the [facility] for rehabilit ation and was discharged home about 6 weeks ago. His past medical history is also significant for hypertension, hyperlipidemia, coronary artery disease with history of coronary artery bypass graft surgery, history of COPD, history of pulmonary hypertension, history of multiple lumbar compression vertebral fractures, history of anemia, history of carotid stenosis, history of osteoarthritis, and history of protein calorie malnutrition. On 12/17/2020 patient was seen and examined on the medical floor he is alert and oriented 3 in no apparent distress he is complaining of nausea otherwise he de nies any complaints there is no fever or chills no headache or dizziness no chest pain no shortness of breath no cough no vomiting no abdominal pain no diarrhea no blood in the stools no burning with urination no frequency or urgency and no hematuria. Kidney function has improved significantly since yesterday, otherwise no change in condition. On 12/18/2020 patient was seen and examined on the medical floor he is alert and oriented 3 in no apparent distress he is complaining of nausea otherwise he denies any complaints there is no fever or chills no headache or dizziness no chest pain , he has some shortness of breath no cough no vomiting no abdominal pain no diarrhea no blood in the stools no burning with urination no frequency or urgency and no hematuria. Kidney function has improved significantly since yesterday, otherwise no change in condition. On 12/19/2020 patient was seen and examined on the medical floor he is alert and oriented 3 in no apparent distress he is complaining of nausea otherwise he denies any complaints there is no fever or chills no headache or dizziness no chest pain , he has some shortness of breath no cough no vomiting no abdominal pain no diarrhea no blood in the stools no burning with urination no frequency or urgency and no hematuria. Kidney function has improved significantly since yesterday, otherwise no change in condition. BNP is significantly elevated, patient still having shortness of breath, will check Echocardiogram and consult cardiology. On 12/20/2020 patient was seen and examined on the medical floor he is alert and oriented 3 in no apparent distress he is complaining of nausea otherwise he denies any complaints there is no fever or chills no headache or dizziness no chest pain , he has some shortness of breath no cough no vomiting no abdominal pain no diarrhea no blood in the stools no burning with urination no frequency or urgency and no hematuria. Kidney function has improved significantly since yesterday, otherwise no change in condition. BNP is significantly elevated, patient still having shortness of breath, will check Echocardiogram and consult cardiology. patient was started on IV lasix, awaiting Echo. On 12/21/2020 patient was seen and examined on the medical floor he is alert and oriented 3 in no apparent distress he is complaining of nausea otherwise he denies any complaints there is no fever or chills no headache or dizziness no chest pain , he has some shortness of breath no cough no vomiting no abdominal pain no diarrhea no blood in the stools no burning with urination no frequency or urgency and no hematuria. Kidney function has improved significantly since yesterday, otherwise no change in condition. BNP is significantly elevated, patient still having shortness of breath, will check Echocardiogram and consult cardiology. patient was started on IV lasix, repeat CXR ordered for tomorrow. On 12/22/2020 patient was seen and examined on the medical floor he is alert and oriented 3 in no apparent distress he is complaining of nausea otherwise he denies any complaints there is no fever or chills no headache or dizziness no chest pain , he has some shortness of breath no cough no vomiting no abdominal pain no diarrhea no blood in the stools no burning with urination no frequency or urgency and no hematuria. Kidney function has improved significantly since yesterday, otherwise no change in condition. BNP is significantly elevated, patient still having shortness of breath, will check Echocardiogram and consult cardiology. patient was started on IV lasix, repeat CXR ordered for tomorrow. at this time will switch to oral lasix and oral Decadron continue to monitor, possi ble discharge in the next 1-2 days. Objective - Vital Signs Vital signs: Vital Signs Temp 98.0 F 12/22/20 04:17 Pulse 104 H 12/22/20 04:17 Resp 18 12/22/20 04:17 BP 117/96 12/22/20 04:17 Pulse Ox 95 12/22/20 04:17 Intake & Output 12/21/20 12/22/20 12/22/20 18:59 06:59 18:59 Intake Total 480 Output Total 450 Balance 480 -450 Intake: Oral 480 Output: Urine 450 Other: Voiding Method Urinal # Bowel Movements 1 - Exam In general patient is alert and oriented x3 in no distress HEENT head normocephalic and atraumatic Neck is supple no JVD no goiter no lymphadenopathy no carotid bruit Chest examination is clear to auscultation no crackles no wheezing Cardiac exam reveals regular heart sounds S1 and S2 no gallops no murmurs Abdomen is soft nontender no organomegaly with normal bowel sounds Extremity exam reveals no edema no cyanosis or clubbing Neurological examination reveals no gross focal deficits - Labs CBC & Chem 7: 12/22/20 07:56 12/22/20 07:56 Labs: Abnormal Lab Results - Last 24 Hours (Table) 12/22/20 12/22/20 Range/Units 07:56 07:56 WBC 18.5 H (3.8-10.6) k/uL RBC 3.21 L (4.30-5.90) m/uL Hgb 8.8 L (13.0-17.5) gm/dL Hct 27.5 L (39.0-53.0) % RDW 15.7 H (11.5-15.5) % Neutrophils # 17.4 H (1.3-7.7) k/uL Lymphocytes # 0.4 L (1.0-4.8) k/uL BUN 67 H (9-20) mg/dL Creatinine 1.82 H (0.66-1.25) mg/dL Glucose 118 H (74-99) mg/dL Total Protein 5.8 L (6.3-8.2) g/dL Albumin 2.9 L (3.5-5.0) g/dL Microbiology - Last 24 Hours (Table) 12/15/20 18:16 Blood Culture - Final Blood No Growth after 144 hours 12/15/20 18:16 Blood Culture - Final Blood No Growth after 144 hours Assessment and Plan Plan: 1. COVID-19 infection 2. Bilateral interstitial pneumonia, possibly related to COVID-19, however bacterial superimposed infection cannot be ruled out 3. Evidence of sepsis, with leukocytosis, hypotension, and elevated lactic acid 4. Acute on chronic renal failure, creatinine on admission in August was 1.5 nephrology consultation requested 5. Severe hyperkalemia 6. Underlying history of COPD 7. Recent history of stroke in August 2020 8. Underlying history of hypertension 9. Underlying history of hyperlipidemia 10. Underlying history of coronary artery disease with previous history of coronary artery bypass graft surgery 11. Underlying history of multiple lumbar compression vertebral fractures. 12. Previous history of anemia and history of GI bleed, Hgb down to 7.7 will consult GI At this time patient is admitted to telemetry floor He received IV fluid boluses He was started on IV heparin and IV Cardizem drip He was started on IV antibiotic Rocephin and Zithromax He was started on steroids prednisone 40 mg daily Pulmonary, nephrology, infectious disease and cardiology consultation requested. Prognosis is poor due to advanced age, severity of illness, and multiple underlying medical conditions
--- NOTE | 2020-12-22 23:08 | PN ---
PROGRESS NOTE DATE OF SERVICE: 12/22/2020 REASON FOR FOLLOWUP: Aspiration pneumonia. INTERVAL HISTORY: Patient is afebrile, seemed to be breathing comfortably. Denies having any chest pain. Did have a cough, not bringing up any sputum. No vomiting. No abdominal pain or diarrhea. PHYSICAL EXAMINATION: Blood pressure is 126/79, pulse of 104, temperature is 97.7. He is 92% on 2 L nasal cannula. General description is an elderly male lying in bed in no distress. Respiratory system: Unlabored breathing, decreased intensity of breath sounds. No wheeze. HEART: S1, S2. Regular rate and rhythm. ABDOMEN: Soft, no tenderness. LABS: Hemoglobin 8.8, white count of 18.5, BUN of 67, creatinine 1.82. DIAGNOSTIC IMPRESSION AND PLAN: Patient with pneumonia, likely aspiration etiology, covered with Unasyn, slight worsening of the infiltrate seen on the x-ray and did have worsening of the white count which could be related to the steroids the patient is on. We will recheck inflammatory markers for the evening, and monitor the patient closely. MMODL / IJN: [id number] /
[2020-12-23] MEDS ORDERED: FUROSEMIDE 40 MG TAB PO SCH ×2 (09:00→16:00)
[2020-12-23] MEDS: AMPICILLIN-SULBACTAM 3 GM in SODIUM CHLORIDE 0.9% 100 ML IVPB SCH ×2 (09:28→20:19)
[2020-12-23] MEDS: ASPIRIN 81 MG PO SCH (09:28)
[2020-12-23] MEDS: CHOLECALCIFEROL 25 MCG (1000 IU) TABLET PO SCH (09:28)
[2020-12-23] MEDS: ZINC SULFATE 220 MG CAP PO SCH (09:28)
[2020-12-23] MEDS: METOPROLOL TARTRATE 50 MG TAB PO SCH ×2 (09:28→20:18)
[2020-12-23] MEDS: ASCORBIC ACID 500 MG TAB PO SCH (09:28)
[2020-12-23] MEDS: ENOXAPARIN 30 MG/0.3 ML SYRINGE SQ SCH (09:29)
[2020-12-23] MEDS: dexAMETHasone 4 MG TAB PO SCH (09:29)
[2020-12-23] MEDS ORDERED: METOPROLOL TARTRATE 50 MG TAB PO STA (11:35)
--- NOTE | 2020-12-23 11:39 | P.PN ---
Subjective Progress Note Date: 12/23/20 HISTORY OF PRESENT ILLNESS: This is a pleasant 89-year-old with past medical history significant for hypertension, stroke, coronary artery disease with previous CABG, bioprosthetic aortic valve replacement, COPD, seizure disorder, previous tobacco abuse and lenin ng cancer. He follows in the office with Dr. Cifuentes. Patient has been having increased shortness breath for last 2 days and therefore called EMS. Patient was found have COVID-19 pneumonia. Patient is somewhat poor historian and records were obtained from the office. Patient was last seen in 2018 in office. He had aortic valve replacement, had moderate to severe mitral regurgitation at that time with MARIVEL 01/19/20 which showed normal ejection fraction 60-65% with normal bioprosthetic aortic valve and moderate to severe mitral regurgitation with severe tricuspid regurgitation and an RVSP of 62. Blood work showed white blood cell count 13.5, hemoglobin 10.5, platelets 134, d-dimer 3.8, potassium 5.3, BUN 99, creatinine 5.09, pro-calcitonin greater than 100, troponin 0.1, CRP 58, coronavirus positive. Chest x-ray showed bilateral interstitial pneumonia, cardiomegaly, small right pleural effusion. Patient was seen by nephrology and was placed on D5W with bicarb. Initial EKG was called atrial fibrillation however appears to have regular P waves, sinus rhythm with frequent PACs. Addit ionally there are nonspecific ST, T-wave abnormalities. 12/21/2020 Patient seen and examined resting comfortably in bed. IV Lasix was initiated yesterday. Urine output for the previous 24 hours was 1150 mL. Blood pressure 138/84 heart rate 119 afebrile maintaining oxygen saturation on nasal cannula. Telemetry tracings reviewed, he his having multi-focal atrial tachycardia with frequent PVC's and PAC's. Laboratory data reviewed, WBC 17, hemoglobin 8.9, platelets 170, sodium 140, potassium 3.7 and creatinine 1.92. 12/22/2020 Patient remains tachycardic this morning with a heart rate in the 130s. However, after his metoprolol his heart rate is around 100. Blood pressure 136/57. He is afebrile. He is on 2 L nasal cannula with oxygen saturations greater than 92%. He remains on IV Lasix. Creatinine 1.82. BUN 67. 12/23/2020 Patient remains mildly tachycardic this morning with a heart rate in the low 100s. Telemetry reveals sinus tachycardia with frequent PACs and PVCs. He is currently on metoprolol 50 mg 3 times a day. He has been transitioned to oral Lasix. BUN 67. Creatinine 1.82. Blood pressure 131/75. PHYSICAL EXAM: Thorough physical exam not completed secondary to limited evaluation/examination due to Covid19 ASSESSMENT: Sinus tachycardia with frequent PACs COVID-19 pneumonia Mildly elevated troponin related to COVID-19 infection and chronic kidney disease Acuet on chronic diastolic heart failure Acute renal failure History of bioprosthetic aortic valve replacement History of moderate to severe mitral regurgitation and severe tricuspid regurgitation Pulmonary hypertension Anemia Hyperkalemia, resolved PLAN: Increase metoprolol to 100mg BID Continue telemetry monitoring Continue oral lasix Accurate I&O Daily weights Monitor kidney function Further recommendations pending patient's course Nurse practitioner note has been reviewed by physician. Signing provider agrees with the documented findings, assessment, and plan of care. Objective - Vital Signs Vital signs: Vital Signs Temp 97.8 F 12/23/20 04:06 Pulse 108 H 12/23/20 04:06 Resp 18 12/23/20 04:06 BP 131/75 12/23/20 04:06 Pulse Ox 94 L 12/23/20 08:03 Intake & Output 12/22/20 12/23/20 12/23/20 18:59 06:59 18:59 Intake Total 237 480 Output Total 400 250 200 Balance -400 -13 280 Intake: Oral 237 480 Output: Urine 400 250 200 Other: Voiding Method Urinal - Labs CBC & Chem 7: 12/22/20 07:56 12/22/20 07:56 Labs: Abnormal Lab Results - Last 24 Hours (Table) 12/22/20 Range/Units 07:56 Procalcitonin 3.60 H (0.02-0.09) ng/mL
--- NOTE | 2020-12-23 12:21 | P.PN ---
Subjective Progress Note Date: 12/23/20 Principal diagnosis: This is an 89-year-old male seen in consultation because of acute kidney injury, COVID pneumonia. He came in with shortness of breath. Currently he is awake alert but profoundly weak is on nasal cannula oxygen. He has mild shortness of breath, no nausea vomiting poor appetite Known with coronary artery disease, history of CABG, COPD seizure disorder and a recent stroke in August 2020 Visit vital signs are stable blood pressure afebrile urine output is documented at 650 mL for the last 24 hours Objective - Vital Signs Vital signs: Vital Signs Temp 97.3 F L 12/23/20 08:00 Pulse 114 H 12/23/20 08:00 Resp 18 12/23/20 04:06 BP 119/73 12/23/20 08:00 Pulse Ox 95 12/23/20 09:00 Intake & Output 12/22/20 12/23/20 12/23/20 18:59 06:59 18:59 Intake Total 237 480 Output Total 400 250 200 Balance -400 -13 280 Intake: Oral 237 480 Output: Urine 400 250 200 Other: Voiding Method Urinal # Bowel Movements 1 On examination awake alert oriented he did profoundly weak though No JVP noted at is supple no facial asymmetry Lungs are clear to auscultation fair air entry bilaterally Heart sounds unremarkable for any murmur rub gallop Abdomen soft nontender Extremity. No Edema Neurologically awake alert oriented but weak - Labs CBC & Chem 7: 12/22/20 07:56 12/22/20 07:56 Labs: Abnormal Lab Results - Last 24 Hours (Table) 12/22/20 Range/Units 07:56 Procalcitonin 3.60 H (0.02-0.09) ng/mL Assessment and Plan Assessment: Impression 1. Acute kidney injury secondary cord pneumonia improving, creatinine on admission is 5 and is down to 1.8, as of yesterday, with adequate urine output. No labs this morning 2. Chronic kidney disease creatinine has been 1.7-2.1 earlier this year August and October 2020. Etiology is nephrosclerosis, urinalysis benign no proteinuria d ated 12/21/2020 3. Anemia hemoglobin is 8.8 4. Status post Venofer infusion 5. Code with pneumonia, possibly improved chest x-ray Recommendation 1. Reduce Lasix to 20 mg as his blood pressure is somewhat low and the edema has resolved. 2. Watch hemoglobin. 3. Continue to monitor closely monitor closely
[2020-12-23] MEDS: FUROSEMIDE 20 MG TAB PO SCH (12:53)
--- NOTE | 2020-12-23 13:30 | P.PN ---
Subjective Progress Note Date: 12/23/20 Principal diagnosis: COPD exacerbation, A. fib with RVR, pneumonia This is a pleasant 89-year-old gentleman who follows with Dr. Boss as his primary care provider. He has history of hypertension, CVA, coronary artery disease with previous coronary artery bypass grafting, COPD, seizure disorder, previous smoker, lung cancer. He presented to the emergency room yesterday with complaints of increasing shortness of breath, chest tightness and wheezing. He was found to be in atrial fibrillation with a rapid ventricular response. Chest x-ray revealed bilateral interstitial pneumonia. Cardiomegaly. Small right pleural effusion and pleural reaction at the right lung base. White count 17.4. Hemoglobin 9.1. Sodium 139. Potassium 5.4. Creatinine 3.75. Presenting crea tinine was 5.09. Pro-calcitonin greater than 100. Troponin 0.105. C-reactive protein 58.6. Andres virus positive. He is seen today in consultation on the selective care unit. The patient is a poor historian. Unable to determine when his symptoms started. He is currently resting fairly comfortably in bed. Awake and alert in no acute distress. Maintaining O2 saturations in the high 90s on 3 L/m per nasal cannula. Afebrile. Slightly tachycardic. Ultrasound of the kidneys revealed no hydronephrosis or nephrolithiasis bilaterally. His initiated on a Cardizem drip at 10 mg per hour, heparin drip and antibiotics in the form of ceftriaxone and azithromycin. His initiated on Decadron 10 mg IV daily. Progress note dated 12/17/2020. 89-year-old black male, seen by our nurse practitioner yesterday in consultation. The patient has a history of hypertension, CVA, coronary disease, previous bypass grafting, COPD, seizure disorder, and lung cancer. The patient apparently presented to the emergency department with complaints of increasing shortness of breath, chest tightness, and wheezing. He was found to have atrial fibrillation with RVR, and also was positive for coronavirus infection. The patient seems be recently comfortable this time. He is on 3 L. Saturations are 97%. Heart rate 86. Respiratory rate 18. No audible wheezing, use of accessory muscles, or conversational dyspnea. The patient is not a particularly good historian. White count 15.8, hemoglobin 7.9, hematocrit 24.8, and platelet count 120,000. PTT is 37.8. Sodium 141, potassium 3.4, chlorides 104, CO2 25, anion gap 12, BUN 97, and creatinine 2.67. Initial lactic acid 2.2. Repeat lactic acid 1.1. Chest x-ray shows bilateral interstitial pneumonia with cardiomegaly. There is a small right-sided pleural effusion. Progress note dated 12/18/2020. 89-year-old black male, seen in consultation 2 days ago. I saw the patient yesterday in follow-up. The patient has a history of essential hypertension, CVA, coronary artery disease, previous bypass grafting, COPD, seizure disorder, and lung cancer. The patient presented to the emergency department with complaints of increasing shortness of breath, chest tightness and wheezing, and was found to have atrial fibrillation with RVR, and also tested positive for coronavirus infection. Currently, the patient appears to be relatively comforta ble. He is on 3 L nasal cannula, and his saturations are 100%. Blood pressure 112/72, heart rate 89, respiratory rate 18, and his temperature is 97.8. Labs show a white count of 14.6, hemoglobin 7.8, hematocrit 25.6, and platelet count 121,000. D-dimer is 2.0. Sodium 141, potassium 3.8, chlorides 108, CO2 26, anion gap 7, BUN 76, creatinine 2.19. No recent chest x-ray to review. The patient is seen today 12/19/2020 in follow-up on the cardiac floor. He is currently resting comfortably in bed. Awake, alert and in no acute distress. He is maintaining O2 saturation in the 90s on 3 L/m per nasal cannula. Lactated Ringer's at 75 ML's per hour. He's been afebrile. Hemodynamically stable. Chest x-ray reveals evidence of congestive heart failure and underlying COPD. Chronic pleural reaction. Blood cultures reveal no growth. White count 12.4. Hemoccult was 7.7. Platelets 113. Sodium 141. Potassium 4.0. Creatinine 2.09. ProBNP 36,700. He remains on Decadron, Lovenox, vitamin supplements. Antibiotics in the form of Unasyn. The patient is seen today 12/20/2020 in follow-up on the selective care unit. He is currently resting comfortably in bed. Awake and alert in no acute distress. Rectal maintaining O2 saturations in the 90s on 3 L/m per nasal cannula. She's been afebrile. Hemodynamically stable. Blood cultures reveal no growth. No new labs today. He remains on Decadron, Lovenox, vitamin supplements. Antibiotics in the form of Unasyn. Lactated Ringer's at 75 ML's per hour. The patient is seen today 12/21/2020 in follow-up on the selective care unit. He has currently resting comfortably in bed. Awake and alert in no acute distress. He is on 2 L/m per nasal cannula. O2 saturation 98%. White count 17.0. Hemoglobin 8.9. Sodium 140. Potassium 3.7. Creatinine 1.92. He is continued on Unasyn. Remains on Decadron, Lovenox, vitamin supplements. Echocardiogram reveals moderate impaired left ventricular systolic function with ejection fraction 40-45%. Severe pulmonary hypertension. The patient is seen today 12/22/2020 in follow-up on the selective care unit. He is currently resting comfortably in bed. Maintaining O2 saturations in the 90s on 2 L/m per nasal cannula. Chest x-ray shows cardiomegaly with chronic parenchymal changes with right greater than left bilateral multifocal opacities and tiny bilateral pleural effusions. No change compared to previous. 0.9 normal saline @ 20 ML's per hour. He is continued on Decadron, Lovenox, vitamin supplements. Antibiotics in the form of Unasyn. Blood cultures reveal no growth. White count 18.5. Hemoglobin 8.8. Lymphocytes 0.4. Sodium 141. Potassium 3.9. Creatinine 1.82. The patient is seen today 12/23/2020 in follow-up on the selective care unit. He is awake and alert in no acute distress. Resting quite comfortably in bed. Maintaining O2 saturations in the 90s on 4 L/m per nasal cannula. No IV fluids. Pro-calcitonin down to 3.6. He remains on Unasyn. He remains on dexamethasone, Lovenox, vitamin supplements. Transitioned to oral diuretics. Objective - Vital Signs Vital signs: Vital Signs Temp 97.3 F L 12/23/20 08:00 Pulse 114 H 12/23/20 08:00 Resp 18 12/23/20 04:06 BP 119/73 05/23/21 08:00 Pulse Ox 95 12/23/20 09:00 Intake & Output 12/22/20 12/23/20 12/23/20 18:59 06:59 18:59 Intake Total 237 480 Output Total 400 250 200 Balance -400 -13 280 Intake: Oral 237 480 Output: Urine 400 250 200 Other: Voiding Method Urinal # Bowel Movements 1 - Exam No acute distress, pleasant 89-year-old gentleman, poor historian, currently on 4 L nasal cannula, with saturations at 95%. No obvious respiratory distress. HEENT examination is grossly unremarkable. Neck supple. Full range of motion. No adenopathy thyromegaly or neck vein distention. Cardiovascular examination reveals regular rhythm rate. S1-S2 normal. No S3 or S4. No discernible murmur noted. Heart rate 105 bpm. Lungs reveal scattered rhonchi and crackles. Breath sounds equal bilaterally. He is not taking deep breaths. No distinct wheezes noted. Abdomen soft bowel sounds are heard. No masses or tenderness. Extremities are intact. No cyanosis clubbing or edema. Skin is without rash or lesion. Neurologic examination is brief but nonfocal. - Labs CBC & Chem 7: 12/22/20 07:56 12/22/20 07:56 Labs: Abnormal Lab Results - Last 24 Hours (Table) 12/22/20 Range/Units 07:56 Procalcitonin 3.60 H (0.02-0.09) ng/mL Assessment and Plan Assessment: 1 Acute hypoxemic respiratory failure secondary to acute COVID-19 pneumonia, cannot rule out underlying bacterial pneumonia. Currently on Unasyn 2 Leukocytosis, pro-calcitonin greater than 100 secondary to above, currently down to 3.6 3 Acute exacerbation of systolic congestive heart failure 4 Acute renal failure with a history of chronic renal failure secondary to nephrosclerosis 5 Atrial fibrillation with a rapid ventricular response, currently atrial tachycardia, on beta blockers 6 Recent CVA 7 Troponin leak 8 Coronary artery disease with previous history of coronary artery bypass grafting 9 Chronic obstructive pulmonary disease 10 Remote history of lung cancer, details of which are unclear 11 Former smoker Plan: The patient was seen and evaluated by Dr. Akers Follow-up pro-calcitonin 3.6, remains on Unasyn Transitioned to oral diuretics Remains on Decadron, Lovenox, vitamin supplements We will continue to follow I, the cosigning physician, performed a history & physical examination of the patient. Lungs sounds with few scattered rhonchi, crackles in the bilateral bases. Maintaining good O2 saturations in the 90s on 2 L/m per nasal cannula. I discussed the assessment and plan of care with my nurse practitioner, Adia Guan. I attest to the above note as dictated by her.
--- NOTE | 2020-12-23 16:33 | P.PN ---
Subjective Progress Note Date: 12/23/20 Principal diagnosis: Anemia The patient is seen lying comfortably in bed today. no acute complaints reported. No signs or symptoms of GI bleeding reported Objective - Vital Signs Vital signs: Vital Signs Temp 97.8 F 12/23/20 04:06 Pulse 108 H 12/23/20 04:06 Resp 18 12/23/20 04:06 BP 131/75 12/23/20 04:06 Pulse Ox 94 L 12/23/20 08:03 Intake & Output 12/22/20 12/23/20 12/23/20 18:59 06:59 18:59 Intake Total 237 480 Output Total 400 250 200 Balance -400 -13 280 Intake: Oral 237 480 Output: Urine 400 250 200 Other: Voiding Method Urinal - Exam On physical examination, patient appears comfortable in no apparent distress. HEAD: Normocephalic, atraumatic. EYES: No scleral icterus. No conjunctival injection. MOUTH: No lesions, tongue midline. NECK: Trachea midline, no gross abnormalities. ABDOMEN: Soft, thin and nontender. Bowel sounds are positive. No organomegaly. No guarding or rigidity. EXTREMITIES: No pedal edema. SKIN: No rashes, no jaundice. NEUROLOGIC: Alert and oriented to person and place. - Labs CBC & Chem 7: 12/22/20 07:56 12/22/20 07:56 Labs: Abnormal Lab Results - Last 24 Hours (Table) 12/22/20 Range/Units 07:56 Procalcitonin 3.60 H (0.02-0.09) ng/mL Assessment and Plan Assessment: Normocytic normochromic anemia 89-year-old male with multiple medical comorbidities admitted for shortness of breath and COVID-19 infection. Patient was noted to have anemia on initial hospitalization and continued to drop his hemoglobin. He should feels his last colonoscopy was approximately 1 year ago however reports are not available at this time. He underwent EGD on 08/2020 at [facility] with findings of small hiatal hernia, gastritis and esophagitis as part of workup of anemia. No signs or symptoms of GI bleeding and hemoglobin has remained stable at 8.8 from 8.9yesterday with no repeat hemoglobin drawn today. Anemia is likely multifactorial and secondary to anemia of chronic disease as well as chronic renal failure. Acute on chronic renal failure COVID-19 infection COPD Plan: Supportive care Iron studies reviewed Stool for occult blood ordered and not collected IV iron therapy ordered Continue to monitor hemoglobin and hematocrit and transfuse as needed Consider hematology consult if continued anemia No plans for endoscopic evaluation at this time, if further fall in hemoglobin or signs or symptoms of GI bleeding develop will reconsider at that time Thank you for allowing us to participate in the care of the patient
--- NOTE | 2020-12-24 05:39 | PN ---
PROGRESS NOTE DATE OF SERVICE: 12/23/2020 REASON FOR FOLLOWUP: Aspiration pneumonia. INTERVAL HISTORY: The patient is afebrile. The patient is breathing comfortably, currently on 4 L nasal cannula. The patient denies any chest pain. Did have a cough, not bringing up any sputum. No nausea, vomiting, abdominal pain, no diarrhea. PHYSICAL EXAMINATION: Blood pressure 119/75 with a pulse of 93, temperature 97.9. He is 98% on 4 L nasal cannula. General description is an elderly male lying in bed in no distress. Respiratory system: Unlabored breathing, decreased intensity with no wheeze. Heart S1, S2. Regular rate and rhythm. Abdomen soft, no tenderness. LABS: White count elevated 18.5. BUN of 67, creatinine 1.82. DIAGNOSTIC IMPRESSION AND PLAN: Patient with a component of pneumonia with possible aspiration. Patient is covered with Unasyn. Overall improvement clinically. White count elevated, more likely steroid effect and will monitor closely. Continue supportive care. MMODL / IJN: [id number] /
[2020-12-24] MEDS: ONDANSETRON 4 MG/2 ML VIAL IVP PRN ×2 (08:56→14:57)
[2020-12-24] MEDS: METOPROLOL TARTRATE 50 MG TAB PO SCH ×2 (08:57→20:38)
[2020-12-24] MEDS: ENOXAPARIN 30 MG/0.3 ML SYRINGE SQ SCH (08:57)
[2020-12-24] MEDS: ZINC SULFATE 220 MG CAP PO SCH (08:57)
[2020-12-24] MEDS: CHOLECALCIFEROL 25 MCG (1000 IU) TABLET PO SCH (08:57)
[2020-12-24] MEDS: dexAMETHasone 4 MG TAB PO SCH (08:57)
[2020-12-24] MEDS: FUROSEMIDE 20 MG TAB PO SCH (08:57)
[2020-12-24] MEDS: ASPIRIN 81 MG PO SCH (08:57)
[2020-12-24] MEDS: ASCORBIC ACID 500 MG TAB PO SCH (08:58)
[2020-12-24] MEDS: AMOXIC-POT CLAV 500-125 MG 1 EACH TAB PO SCH ×2 (09:30→20:38)
--- NOTE | 2020-12-24 09:41 | XR ---
EXAMINATION TYPE: XR chest 1V portable DATE OF EXAM: 12/24/2020 COMPARISON: Chest x-ray 12/22/2020 HISTORY: Covid, shortness of breath, abnormal chest x-ray TECHNIQUE: Single frontal view of the chest is obtained. FINDINGS: Patient is rotated. Interstitium is prominent, patchy bilateral increased density is again noted within the lungs. Heart is likely enlarged, patient is post median sternotomy. Aorta is dense. No evident pneumothorax. No sizable effusion evident. IMPRESSION: Findings consistent with patient's history of Covid pneumonia. Cardiomegaly and postop c hanges. Difficult to exclude interstitial edema.
--- NOTE | 2020-12-24 11:56 | P.PN ---
Subjective Patient is seen in follow-up for acute kidney injury on chronic kidney disease. Creatinine 1.8 as of December 22. No edema. Hemodynamically stable. Oral intake fair. Currently on 4 L nasal cannula. Vital signs are stable. General: The patient appeared well nourished and normally developed. HEENT: Head exam is unremarkable. Neck is without jugular venous distension. LUNGS: Breath sounds decreased. HEART: Rate and Rhythm are regular. ABDOMEN: Soft, no distention. EXTREMITITES: No edema. Objective - Vital Signs Vital signs: Vital Signs Temp 97.3 F L 12/24/20 08:45 Pulse 102 H 12/24/20 08:45 Resp 16 12/24/20 08:45 BP 129/82 12/24/20 08:45 Pulse Ox 93 L 12/24/20 08:45 Intake & Output 12/23/20 12/24/20 12/24/20 18:59 06:59 18:59 Intake Total 900 240 Output Total 350 Balance 550 240 Intake: Oral 900 240 Output: Urine 350 Other: Voiding Method Urinal # Bowel Movements 1 - Labs CBC & Chem 7: 12/22/20 07:56 12/22/20 07:56 Assessment and Plan Plan: Assessment: 1. Acute kidney injury mostly prerenal secondary to infection. Improving. Creatinine 1.8 to as of 12/22/2020. No proteinuria on UA. No evidence of hydronephrosis noted on kidney ultrasound 2. Chronic kidney disease stage IIIB with baseline creatinine 1.5-2.3 earlier this year. Etiology is nephrosclerosis. 3. COVID-19 pneumonia with component of aspiration maintained on antibiotics. 4. Anemia of chronic kidney disease. Status post IV iron. 5. Chronic diastolic CHF with moderate mitral regurgitation, severe tricuspid regurgitation and pulmonary hypertension. Plan: Encourage oral intake. Maintain oral Lasix. Add Aranesp. Repeat electrolytes in the morning.
--- NOTE | 2020-12-24 12:19 | P.PN ---
Subjective Progress Note Date: 12/23/20 Fitz Blue, is an 89 year old male who presented to [facility] emergency room with a chief complaint of worsening shortness of breath, patient stated that he started having shortness of breath on the day of presentation that progressed to significant breathing difficulty EMS were sushma smith, they found patient to be in significant respiratory distress he was started on nonrebreather mask and was treated with IV Solu-Medrol and DuoNeb updrafts and was brought in to [facility] emergency room. In the emergency room patient was evaluated, his vital examination on presentation revealed a temperature of 98.6 pulse 142 respiration 18 blood pressure 99/78 pulse ox 94% on room air, laboratory data on presentation revealed a white blood count of 13.5 hemoglobin 10.5 platelet count 134 d-dimer 3.88, sodium 140 potassium 5.3 chloride 106 CO2 16 BUN 19 9 creatinine 5.09 glucose level was 136 plasma lactic acid was 3.5 troponin level was elevated at 0.105 C-reactive p rotein 58.6 Procalcitonin more than 100 and coronavirus PCR was positive. Chest x-ray was done in the emergency room and revealed bilateral interstitial pneumonia, cardiomegaly, small right pleural effusion and pleural reaction , EKG was done in the emergency room and revealed atrial fibrillation with rapid ventricular response and nonspecific ST abnormality . Patient was admitted to telemetry floor for further evaluation and treatment. Patient was admitted to [facility] in August 2020 after having a stroke, he was discharged to [facility] on the [facility] for rehabilit ation and was discharged home about 6 weeks ago. His past medical history is also significant for hypertension, hyperlipidemia, coronary artery disease with history of coronary artery bypass graft surgery, history of COPD, history of pulmonary hypertension, history of multiple lumbar compression vertebral fractures, history of anemia, history of carotid stenosis, history of osteoarthritis, and history of protein calorie malnutrition. On 12/17/2020 patient was seen and examined on the medical floor he is alert and oriented 3 in no apparent distress he is complaining of nausea otherwise he de nies any complaints there is no fever or chills no headache or dizziness no chest pain no shortness of breath no cough no vomiting no abdominal pain no diarrhea no blood in the stools no burning with urination no frequency or urgency and no hematuria. Kidney function has improved significantly since yesterday, otherwise no change in condition. On 12/18/2020 patient was seen and examined on the medical floor he is alert and oriented 3 in no apparent distress he is complaining of nausea otherwise he denies any complaints there is no fever or chills no headache or dizziness no chest pain , he has some shortness of breath no cough no vomiting no abdominal pain no diarrhea no blood in the stools no burning with urination no frequency or urgency and no hematuria. Kidney function has improved significantly since yesterday, otherwise no change in condition. On 12/19/2020 patient was seen and examined on the medical floor he is alert and oriented 3 in no apparent distress he is complaining of nausea otherwise he denies any complaints there is no fever or chills no headache or dizziness no chest pain , he has some shortness of breath no cough no vomiting no abdominal pain no diarrhea no blood in the stools no burning with urination no frequency or urgency and no hematuria. Kidney function has improved significantly since yesterday, otherwise no change in condition. BNP is significantly elevated, patient still having shortness of breath, will check Echocardiogram and consult cardiology. On 12/20/2020 patient was seen and examined on the medical floor he is alert and oriented 3 in no apparent distress he is complaining of nausea otherwise he denies any complaints there is no fever or chills no headache or dizziness no chest pain , he has some shortness of breath no cough no vomiting no abdominal pain no diarrhea no blood in the stools no burning with urination no frequency or urgency and no hematuria. Kidney function has improved significantly since yesterday, otherwise no change in condition. BNP is significantly elevated, patient still having shortness of breath, will check Echocardiogram and consult cardiology. patient was started on IV lasix, awaiting Echo. On 12/21/2020 patient was seen and examined on the medical floor he is alert and oriented 3 in no apparent distress he is complaining of nausea otherwise he denies any complaints there is no fever or chills no headache or dizziness no chest pain , he has some shortness of breath no cough no vomiting no abdominal pain no diarrhea no blood in the stools no burning with urination no frequency or urgency and no hematuria. Kidney function has improved significantly since yesterday, otherwise no change in condition. BNP is significantly elevated, patient still having shortness of breath, will check Echocardiogram and consult cardiology. patient was started on IV lasix, repeat CXR ordered for tomorrow. On 12/22/2020 patient was seen and examined on the medical floor he is alert and oriented 3 in no apparent distress he is complaining of nausea otherwise he denies any complaints there is no fever or chills no headache or dizziness no chest pain , he has some shortness of breath no cough no vomiting no abdominal pain no diarrhea no blood in the stools no burning with urination no frequency or urgency and no hematuria. Kidney function has improved significantly since yesterday, otherwise no change in condition. BNP is significantly elevated, patient still having shortness of breath, will check Echocardiogram and consult cardiology. patient was started on IV lasix, repeat CXR ordered for tomorrow. at this time will switch to oral lasix and oral Decadron continue to monitor, possi ble discharge in the next 1-2 days. On 12/23/2020 Patient was seen and examined on the medical floor, he is alert and oriented x 3 in no distress, he denies any complaints there is no fever or chills no headache or dizziness no chest pain no shortness of breath no palpitation no cough no nausea or vomiting no abdominal pain no diarrhea no blood in the stools no burning with urination no frequency or urgency and no hematuria, there is no weakness or numbness in any of the extremities no change in vision speech or gait. White blood count is still significantly elevated pro calcitonin is elevated chest x-rays revealing some worsening infectious disease following awaiting further recommendation will continue to monitor Objective - Vital Signs Vital signs: Vital Signs Temp 97.3 F L 12/23/20 08:00 Pulse 114 H 12/23/20 08:00 Resp 18 12/23/20 04:06 BP 119/73 12/23/20 08:00 Pulse Ox 95 12/23/20 09:00 Intake & Output 12/22/20 12/23/20 12/23/20 18:59 06:59 18:59 Intake Total 237 480 Output Total 400 250 200 Balance -400 -13 280 Intake: Oral 237 480 Output: Urine 400 250 200 Other: Voiding Method Urinal # Bowel Movements 1 - Exam In general patient is alert and oriented x3 in no distress HEENT head normocephalic and atraumatic Neck is supple no JVD no goiter no lymphadenopathy no carotid bruit Chest examination is clear to auscultation no crackles no wheezing Cardiac exam reveals regular heart sounds S1 and S2 no gallops no murmurs Abdomen is soft nontender no organomegaly with normal bowel sounds Extremity exam reveals no edema no cyanosis or clubbing Neurological examination reveals no gross focal deficits - Labs CBC & Chem 7: 12/22/20 07:56 12/22/20 07:56 Labs: Abnormal Lab Results - Last 24 Hours (Table) 12/22/20 Range/Units 07:56 Procalcitonin 3.60 H (0.02-0.09) ng/mL Assessment and Plan Plan: 1. COVID-19 infection 2. Bilateral interstitial pneumonia, possibly related to COVID-19, however bacterial superimposed infection cannot be ruled out 3. Evidence of sepsis, with leukocytosis, hypotension, and elevated lactic acid 4. Acute on chronic renal failure, creatinine on admission in August was 1.5 nephrology consultation requested 5. Severe hyperkalemia 6. Underlying history of COPD 7. Recent history of stroke in August 2020 8. Underlying history of hypertension 9. Underlying history of hyperlipidemia 10. Underlying history of coronary artery disease with previous history of coronary artery bypass graft surgery 11. Underlying history of multiple lumbar compression vertebral fractures. 12. Previous history of anemia and history of GI bleed, Hgb down to 7.7 will consult GI At this time patient is admitted to telemetry floor He received IV fluid boluses He was started on IV heparin and IV Cardizem drip He was started on IV antibiotic Rocephin and Zithromax He was started on steroids prednisone 40 mg daily Pulmonary, nephrology, infectious disease and cardiology consultation requested. Prognosis is poor due to advanced age, severity of illness, and multiple underlying medical conditions
--- NOTE | 2020-12-24 12:25 | P.PN ---
Subjective Progress Note Date: 12/24/20 COPD exacerbation, A. fib with RVR, pneumonia This is a pleasant 89-year-old gentleman who follows with Dr. Boss as his primary care provider. He has history of hypertension, CVA, coronary artery disease with previous coronary artery bypass grafting, COPD, seizure disorder, previous smoker, lung cancer. He presented to the emergency room yesterday with complaints of increasing shortness of breath, chest tightness and wheezing. He was found to be in atrial fibrillation with a rapid ventricular response. Chest x-ray revealed bilateral interstitial pneumonia. Cardiomegaly. Small right pleural effusion and pleural reaction at the right lung base. White count 17.4. Hemoglobin 9.1. Sodium 139. Potassium 5.4. Creatinine 3.75. Presenting creatinine was 5.09. Pro-calcitonin greater than 100. Troponin 0.105. C- reactive protein 58.6. Andres virus positive. He is seen today in consultation on the selective care unit. The patient is a poor historian. Unable to determine when his symptoms started. He is currently resting fairly comfortably in bed. Awake and alert in no acute distress. Maintaining O2 saturations in the high 90s on 3 L/m per nasal cannula. Afebrile. Slightly tachycardic. Ultrasound of the kidneys revealed no hydronephrosis or nephrolithiasis bilaterally. His initiated on a Cardizem drip at 10 mg per hour, heparin drip and antibiotics in the form of ceftriaxone and azithromycin. His initiated on Decadron 10 mg IV daily. Progress note dated 12/17/2020. 89-year-old black male, seen by our nurse practitioner yesterday in consultation. The patient has a history of hypertension, CVA, coronary disease, previous bypass grafting, COPD, seizure disorder, and lung cancer. The patient apparently presented to the emergency department with complaints of increasing shortness of breath, chest tightness, and wheezing. He was found to have atrial fibrillation with RVR, and also was positive for coronavirus infection. The patient seems be recently comfortable this time. He is on 3 L. Saturations are 97%. Heart rate 86. Respiratory rate 18. No audible wheezing, use of accessory muscles, or conversational dyspnea. The patient is not a particularly good historian. White count 15.8, hemoglobin 7.9, hematocrit 24.8, and platelet count 120,000. PTT is 37.8. Sodium 141, potassium 3.4, chlorides 104, CO2 25, anion gap 12, BUN 97, and creatinine 2.67. Initial lactic acid 2.2. Repeat lactic acid 1.1. Chest x-ray shows bilateral interstitial pneumonia with cardiomegaly. There is a small right-sided pleural effusion. Progress note dated 12/18/2020. 89-year-old black male, seen in consultation 2 days ago. I saw the patient yesterday in follow-up. The patient has a history of essential hypertension, CVA, coronary artery disease, previous bypass grafting, COPD, seizure disorder, and lung cancer. The patient presented to the emergency department with complaints of increasing shortness of breath, chest tightness and wheezing, and was found to have atrial fibrillation with RVR, and also tested positive for coronavirus infection. Currently, the patient appears to be relatively comfortable. He is on 3 L nasal cannula, and his saturations are 100%. Blood pressure 112/72, heart rate 89, respiratory rate 18, and his temperature is 97.8. Labs show a white count of 14.6, hemoglobin 7.8, hematocrit 25.6, and platelet count 121,000. D-dimer is 2.0. Sodium 141, potassium 3.8, chlorides 108, CO2 26, anion gap 7, BUN 76, creatinine 2.19. No recent chest x-ray to review. The patient is seen today 12/19/2020 in follow-up on the cardiac floor. He is currently resting comfortably in bed. Awake, alert and in no acute distress. He is maintaining O2 saturation in the 90s on 3 L/m per nasal cannula. Lactated Ringer's at 75 ML's per hour. He's been afebrile. Hemodynamically stable. Chest x-ray reveals evidence of congestive heart failure and underlying COPD. Chronic pleural reaction. Blood cultures reveal no growth. White count 12.4. Hemoccult was 7.7. Platelets 113. Sodium 141. Potassium 4.0. Creatinine 2.09. ProBNP 36,700. He remains on Decadron, Lovenox, vitamin supplements. Antibiotics in the form of Unasyn. The patient is seen today 12/20/2020 in follow-up on the selective care unit. He is currently resting comfortably in bed. Awake and alert in no acute distress. Rectal maintaining O2 saturations in the 90s on 3 L/m per nasal cannula. She's been afebrile. Hemodynamically stable. Blood cultures reveal no growth. No new labs today. He remains on Decadron, Lovenox, vitamin supplements. Antibiotics in the form of Unasyn. Lactated Ringer's at 75 ML's per hour. The patient is seen today 12/21/2020 in follow-up on the selective care unit. He has currently resting comfortably in bed. Awake and alert in no acute distress. He is on 2 L/m per nasal cannula. O2 saturation 98%. White count 17.0. Hemoglobin 8.9. Sodium 140. Potassium 3.7. Creatinine 1.92. He is continued on Unasyn. Remains on Decadron, Lovenox, vitamin supplements. Echocardiogram reveals moderate impaired left ventricular systolic function with ejection fraction 40-45%. Severe pulmonary hypertension. The patient is seen today 12/22/2020 in follow-up on the selective care unit. He is currently resting comfortably in bed. Maintaining O2 saturations in the 90s on 2 L/m per nasal cannula. Chest x-ray shows cardiomegaly with chronic parenchymal changes with right greater than left bilateral multifocal opacities and tiny bilateral pleural effusions. No change compared to previous. 0.9 normal saline @ 20 ML's per hour. He is continued on Decadron, Lovenox, vitamin supplements. Antibiotics in the form of Unasyn. Blood cultures reveal no growth. White count 18.5. Hemoglobin 8.8. Lymphocytes 0.4. Sodium 141. Potassium 3.9. Creatinine 1.82. The patient is seen today 12/23/2020 in follow-up on the selective care unit. He is awake and alert in no acute distress. Resting quite comfortably in bed. Maintaining O2 saturations in the 90s on 4 L/m per nasal cannula. No IV fluids. Pro-calcitonin down to 3.6. He remains on Unasyn. He remains on dexamethasone, Lovenox, vitamin supplements. Transitioned to oral diuretics. 2020, the patient is being seen for a follow-up. The patient remains on 4 L of Oxymizer nasal cannula to maintain a saturation above 90%. Is a case of COV ID-19 related pneumonia with secondary story failure. His superinfection is also suspected knowing that the patient's pro-calcitonin level was elevated significantly. The most recent chest x-ray showing diffuse but the pulmonary infiltrates right more than left. The pro-calcitonin level is down to 3.6 from 12/22/2020. The white cell count of 18.5 with a hemoglobin of 8.9. Platelet count is stable at 178. The patient continues to have some lymphopenia. Creatinine is down to 1.8 with the rest of the electrodes being within normal limits. She remains on empiric antibiotic coverage with IV Unasyn initially and later on Augmentin. He is on Decadron 4 mg by mouth daily. He is on Lasix 20 mg by mouth daily and he is also on Lovenox 30 mg subcu for DVT prophylaxis. Objective - Vital Signs Vital signs: Vital Signs Temp 97.7 F 12/24/20 12:01 Pulse 98 12/24/20 12:01 Resp 16 12/24/20 12:01 BP 109/61 12/24/20 12:01 Pulse Ox 96 12/24/20 12:01 Intake & Output 12/23/20 12/24/20 12/24/20 18:59 06:59 18:59 Intake Total 900 240 Output Total 350 Balance 550 240 Intake: Oral 900 240 Output: Urine 350 Other: Voiding Method Urinal # Bowel Movements 1 - Exam No acute distress, pleasant 89-year-old gentleman, poor historian, currently on 4 L nasal cannula, with saturations at 95%. No obvious respiratory distress. HEENT examination is grossly unremarkable. Neck supple. Full range of motion. No adenopathy thyromegaly or neck vein distention. Cardiovascular examination reveals regular rhythm rate. S1-S2 normal. No S3 or S4. No discernible murmur noted. Heart rate 105 bpm. Lungs reveal scattered rhonchi and crackles. Breath sounds equal bilaterally. He is not taking deep breaths. No distinct wheezes noted. Abdomen soft bowel sounds are heard. No masses or tenderness. Extremities are intact. No cyanosis clubbing or edema. Skin is without rash or lesion. Neurologic examination is brief but nonfocal. - Labs CBC & Chem 7: 12/22/20 07:56 12/22/20 07:56 Assessment and Plan Plan: 1 Acute hypoxemic respiratory failure secondary to acute COVID-19 pneumonia, cannot rule out underlying bacterial pneumonia. Currently Decadron sap bw architect and the patient is also taking an oral Augmentin after being on Unasyn for a few days. Pro-calcitonin level has declined down to 3.6. Leukocytosis still present. Chest x-ray showing diffuse but the pulmonary infiltrates right more than left consistent more so with COVID-19 related pneumonia. 2 Leukocytosis, pro-calcitonin greater than 100 secondary to above, currently down to 3.6 3 Acute exacerbation of systolic congestive heart failure 4 Acute renal failure with a history of chronic renal failure secondary to nephrosclerosis, creatinine stable at 1.8 and a drop down to 1.8 from a baseline of 5.09 at time of admission. 5 Atrial fibrillation with a rapid ventricular response, currently atrial tachycardia, on beta blockers 6 Recent CVA 7 Troponin leak 8 Coronary artery disease with previous history of coronary artery bypass grafting 9 Chronic obstructive pulmonary disease 10 Remote history of lung cancer, details of which are unclear 11 Former smoker Plan: Wean down the FiO2 to maintain saturation above 90% currently on 4 L Continue oral Augmentin Repeat chest x-ray in a.m. Monitor renal function Monitor mental status Remains on Decadron, Lovenox, vitamin supplements We will continue to follow
--- NOTE | 2020-12-24 12:53 | P.PN ---
Subjective Progress Note Date: 12/24/20 HISTORY OF PRESENT ILLNESS: This is a pleasant 89-year-old with past medical history significant for hypertension, stroke, coronary artery disease with previous CABG, bioprosthetic aortic valve replacement, COPD, seizure disorder, previous tobacco abuse and lenin ng cancer. He follows in the office with Dr. Cifuentes. Patient has been having increased shortness breath for last 2 days and therefore called EMS. Patient was found have COVID-19 pneumonia. Patient is somewhat poor historian and records were obtained from the office. Patient was last seen in 2018 in office. He had aortic valve replacement, had moderate to severe mitral regurgitation at that time with MARIVEL 01/19/20 which showed normal ejection fraction 60-65% with normal bioprosthetic aortic valve and moderate to severe mitral regurgitation with severe tricuspid regurgitation and an RVSP of 62. Blood work showed white blood cell count 13.5, hemoglobin 10.5, platelets 134, d-dimer 3.8, potassium 5.3, BUN 99, creatinine 5.09, pro-calcitonin greater than 100, troponin 0.1, CRP 58, coronavirus positive. Chest x-ray showed bilateral interstitial pneumonia, cardiomegaly, small right pleural effusion. Patient was seen by nephrology and was placed on D5W with bicarb. Initial EKG was called atrial fibrillation however appears to have regular P waves, sinus rhythm with frequent PACs. Addit ionally there are nonspecific ST, T-wave abnormalities. 12/21/2020 Patient seen and examined resting comfortably in bed. IV Lasix was initiated yesterday. Urine output for the previous 24 hours was 1150 mL. Blood pressure 138/84 heart rate 119 afebrile maintaining oxygen saturation on nasal cannula. Telemetry tracings reviewed, he his having multi-focal atrial tachycardia with frequent PVC's and PAC's. Laboratory data reviewed, WBC 17, hemoglobin 8.9, platelets 170, sodium 140, potassium 3.7 and creatinine 1.92. 12/22/2020 Patient remains tachycardic this morning with a heart rate in the 130s. However, after his metoprolol his heart rate is around 100. Blood pressure 136/57. He is afebrile. He is on 2 L nasal cannula with oxygen saturations greater than 92%. He remains on IV Lasix. Creatinine 1.82. BUN 67. 12/23/2020 Patient remains mildly tachycardic this morning with a heart rate in the low 100s. Telemetry reveals sinus tachycardia with frequent PACs and PVCs. He is currently on metoprolol 50 mg 3 times a day. He has been transitioned to oral Lasix. BUN 67. Creatinine 1.82. Blood pressure 131/75. 12/24/2020 Patient remains in sinus mechanism with frequent PACs. Metoprolol increased yesterday. Heart rate better controlled today. Blood pressure 109/61. He is afebrile. He is on 4 L nasal cannula oxygen saturations greater than 92%. PHYSICAL EXAM: Thorough physical exam not completed secondary to limited evaluation/examination due to Covid19 ASSESSMENT: Sinus tachycardia with frequent PACs COVID-19 pneumonia Mildly elevated troponin related to COVID-19 infection and chronic kidney disease Acuet on chronic diastolic heart failure Acute renal failure History of bioprosthetic aortic valve replacement History of moderate to severe mitral regurgitation and severe tricuspid regurgitation Pulmonary hypertension Anemia Hyperkalemia, resolved PLAN: Continue current cardiac medications Patient is stable from a cardiac standpoint We will follow on an as-needed basis. Please call with questions or concerns. Nurse practitioner note has been reviewed by physician. Signing provider agrees with the documented findings, assessment, and plan of care. Objective - Vital Signs Vital signs: Vital Signs Temp 97.7 F 12/24/20 12:01 Pulse 98 12/24/20 12:01 Resp 16 12/24/20 12:01 BP 109/61 12/24/20 12:01 Pulse Ox 96 12/24/20 12:01 Intake & Output 12/23/20 12/24/20 12/24/20 18:59 06:59 18:59 Intake Total 900 480 Output Total 350 300 Balance 550 180 Intake: Oral 900 480 Output: Urine 350 300 Other: Voiding Method Urinal # Bowel Movements 1 1 - Labs CBC & Chem 7: 12/22/20 07:56 12/22/20 07:56
[2020-12-24] MEDS: DARBEPOETIN ALFA 40 MCG/0.4 ML SYRINGE SQ SCH (13:37)
--- NOTE | 2020-12-24 19:03 | P.PN ---
Subjective Progress Note Date: 12/24/20 Fitz Blue, is an 89 year old male who presented to [facility] emergency room with a chief complaint of worsening shortness of breath, patient stated that he started having shortness of breath on the day of presentation that progressed to significant breathing difficulty EMS were sushma smith, they found patient to be in significant respiratory distress he was started on nonrebreather mask and was treated with IV Solu-Medrol and DuoNeb updrafts and was brought in to [facility] emergency room. In the emergency room patient was evaluated, his vital examination on presentation revealed a temperature of 98.6 pulse 142 respiration 18 blood pressure 99/78 pulse ox 94% on room air, laboratory data on presentation revealed a white blood count of 13.5 hemoglobin 10.5 platelet count 134 d-dimer 3.88, sodium 140 potassium 5.3 chloride 106 CO2 16 BUN 19 9 creatinine 5.09 glucose level was 136 plasma lactic acid was 3.5 troponin level was elevated at 0.105 C-reactive p rotein 58.6 Procalcitonin more than 100 and coronavirus PCR was positive. Chest x-ray was done in the emergency room and revealed bilateral interstitial pneumonia, cardiomegaly, small right pleural effusion and pleural reaction , EKG was done in the emergency room and revealed atrial fibrillation with rapid ventricular response and nonspecific ST abnormality . Patient was admitted to telemetry floor for further evaluation and treatment. Patient was admitted to [facility] in August 2020 after having a stroke, he was discharged to [facility] on the [facility] for rehabilit ation and was discharged home about 6 weeks ago. His past medical history is also significant for hypertension, hyperlipidemia, coronary artery disease with history of coronary artery bypass graft surgery, history of COPD, history of pulmonary hypertension, history of multiple lumbar compression vertebral fractures, history of anemia, history of carotid stenosis, history of osteoarthritis, and history of protein calorie malnutrition. On 12/17/2020 patient was seen and examined on the medical floor he is alert and oriented 3 in no apparent distress he is complaining of nausea otherwise he de nies any complaints there is no fever or chills no headache or dizziness no chest pain no shortness of breath no cough no vomiting no abdominal pain no diarrhea no blood in the stools no burning with urination no frequency or urgency and no hematuria. Kidney function has improved significantly since yesterday, otherwise no change in condition. On 12/18/2020 patient was seen and examined on the medical floor he is alert and oriented 3 in no apparent distress he is complaining of nausea otherwise he denies any complaints there is no fever or chills no headache or dizziness no chest pain , he has some shortness of breath no cough no vomiting no abdominal pain no diarrhea no blood in the stools no burning with urination no frequency or urgency and no hematuria. Kidney function has improved significantly since yesterday, otherwise no change in condition. On 12/19/2020 patient was seen and examined on the medical floor he is alert and oriented 3 in no apparent distress he is complaining of nausea otherwise he denies any complaints there is no fever or chills no headache or dizziness no chest pain , he has some shortness of breath no cough no vomiting no abdominal pain no diarrhea no blood in the stools no burning with urination no frequency or urgency and no hematuria. Kidney function has improved significantly since yesterday, otherwise no change in condition. BNP is significantly elevated, patient still having shortness of breath, will check Echocardiogram and consult cardiology. On 12/20/2020 patient was seen and examined on the medical floor he is alert and oriented 3 in no apparent distress he is complaining of nausea otherwise he denies any complaints there is no fever or chills no headache or dizziness no chest pain , he has some shortness of breath no cough no vomiting no abdominal pain no diarrhea no blood in the stools no burning with urination no frequency or urgency and no hematuria. Kidney function has improved significantly since yesterday, otherwise no change in condition. BNP is significantly elevated, patient still having shortness of breath, will check Echocardiogram and consult cardiology. patient was started on IV lasix, awaiting Echo. On 12/21/2020 patient was seen and examined on the medical floor he is alert and oriented 3 in no apparent distress he is complaining of nausea otherwise he denies any complaints there is no fever or chills no headache or dizziness no chest pain , he has some shortness of breath no cough no vomiting no abdominal pain no diarrhea no blood in the stools no burning with urination no frequency or urgency and no hematuria. Kidney function has improved significantly since yesterday, otherwise no change in condition. BNP is significantly elevated, patient still having shortness of breath, will check Echocardiogram and consult cardiology. patient was started on IV lasix, repeat CXR ordered for tomorrow. On 12/22/2020 patient was seen and examined on the medical floor he is alert and oriented 3 in no apparent distress he is complaining of nausea otherwise he denies any complaints there is no fever or chills no headache or dizziness no chest pain , he has some shortness of breath no cough no vomiting no abdominal pain no diarrhea no blood in the stools no burning with urination no frequency or urgency and no hematuria. Kidney function has improved significantly since yesterday, otherwise no change in condition. BNP is significantly elevated, patient still having shortness of breath, will check Echocardiogram and consult cardiology. patient was started on IV lasix, repeat CXR ordered for tomorrow. at this time will switch to oral lasix and oral Decadron continue to monitor, possi ble discharge in the next 1-2 days. On 12/23/2020 Patient was seen and examined on the medical floor, he is alert and oriented x 3 in no distress, he denies any complaints there is no fever or chills no headache or dizziness no chest pain no shortness of breath no palpitation no cough no nausea or vomiting no abdominal pain no diarrhea no blood in the stools no burning with urination no frequency or urgency and no hematuria, there is no weakness or numbness in any of the extremities no change in vision speech or gait. White blood count is still significantly elevated pro calcitonin is elevated chest x-rays revealing some worsening infectious disease following awaiting further recommendation will continue to monitor On 12/24/2020 Patient was seen and examined on the medical floor, he is alert and oriented x 3 in no distress, he denies any complaints there is no fever or chills no headache or dizziness no chest pain no shortness of breath no palpitation no cough no nausea or vomiting no abdominal pain no diarrhea no blood in the stools no burning with urination no frequency or urgency and no hematuria, there is no weakness or numbness in any of the extremities no change in vision speech or gait. White blood count is still significantly elevated pro calcitonin is elevated chest x-rays revealing some worsening opacities, infectious disease following awaiting further recommendation will continue to monitor, today Will decrease dose of Decadron and continue to monitor Objective - Vital Signs Vital signs: Vital Signs Temp 97.7 F 12/24/20 12:01 Pulse 98 12/24/20 12:01 Resp 16 12/24/20 12:01 BP 109/61 12/24/20 12:01 Pulse Ox 96 12/24/20 12:01 Intake & Output 12/23/20 12/24/20 12/24/20 18:59 06:59 18:59 Intake Total 900 480 Output Total 350 300 Balance 550 180 Intake: Oral 900 480 Output: Urine 350 300 Other: Voiding Method Urinal # Bowel Movements 1 1 - Exam In general patient is alert and oriented x3 in no distress HEENT head normocephalic and atraumatic Neck is supple no JVD no goiter no lymphadenopathy no carotid bruit Chest examination is clear to auscultation no crackles no wheezing Cardiac exam reveals regular heart sounds S1 and S2 no gallops no murmurs Abdomen is soft nontender no organomegaly with normal bowel sounds Extremity exam reveals no edema no cyanosis or clubbing Neurological examination reveals no gross focal deficits - Labs CBC & Chem 7: 12/22/20 07:56 12/22/20 07:56 Assessment and Plan Plan: 1. COVID-19 infection 2. Bilateral interstitial pneumonia, possibly related to COVID-19, however bacterial superimposed infection cannot be ruled out 3. Evidence of sepsis, with leukocytosis, hypotension, and elevated lactic acid 4. Acute on chronic renal failure, creatinine on admission in August was 1.5 nephrology consultation requested 5. Severe hyperkalemia 6. Underlying history of COPD 7. Recent history of stroke in August 2020 8. Underlying history of hypertension 9. Underlying history of hyperlipidemia 10. Underlying history of coronary artery disease with previous history of coronary artery bypass graft surgery 11. Underlying history of multiple lumbar compression vertebral fractures. 12. Previous history of anemia and history of GI bleed, Hgb down to 7.7 will consult GI At this time patient is admitted to telemetry floor He received IV fluid boluses He was started on IV heparin and IV Cardizem drip He was started on IV antibiotic Rocephin and Zithromax He was started on steroids prednisone 40 mg daily Pulmonary, nephrology, infectious disease and cardiology consultation requested. Prognosis is poor due to advanced age, severity of illness, and multiple underlying medical conditions
--- NOTE | 2020-12-25 03:58 | PN ---
PROGRESS NOTE DATE OF SERVICE: 12/24/2020 REASON FOR FOLLOWUP: Pneumonia. INTERVAL HISTORY: The patient is afebrile. The patient is breathing comfortably, currently on 4 L nasal cannula. Patient denies any chest pain. Did have a cough not bringing up any sputum. No abdominal pain or diarrhea. PHYSICAL EXAMINATION: Blood pressure is 120/74 with a pulse of 105, temperature of 98.5. He is 94% on 4 L nasal cannula. General description: The patient is an elderly male lying in bed in no distress. Respiratory system: Unlabored breathing. Bilateral crackles. Heart: S1-S2 regular rate and rhythm. ABDOMEN: Soft, no tenderness. LABS: No new labs have been obtained today. DIAGNOSTIC IMPRESSION AND PLAN: Patient admitted to the hospital with shortness of breath and pneumonia. He did have positive Covid test. Did have Covid bacterial component. He did have significant elevated procalcitonin. Has finished Unasyn. Currently, short course of oral Augmentin. Continue while monitoring clinical course closely. MMODL / IJN: [id number] /
[2020-12-25] MEDS: ONDANSETRON 4 MG/2 ML VIAL IVP PRN ×2 (08:00→23:47)
[2020-12-25 08:21] LABS: Albumin 2.7 g/dL (3.5-5.0); Calcium 8.2 mg/dL (8.4-10.2); Magnesium 1.8 mg/dL (1.6-2.3); Potassium 4.1 mmol/L (3.5-5.1); Total Bilirubin 0.3 mg/dL (0.2-1.3); Total Protein 5.6 g/dL (6.3-8.2)
[2020-12-25 08:42] LABS: Anisocytosis Slight; Basophils # (A) 0.1 k/uL (0-0.2); Basophils % (A) 1 %; Eosinophils % (A) 0 %; HCT 20.6 % (39.0-53.0); Hypochromasia Slight; Lymphocytes # (A) 0.7 k/uL (1.0-4.8); Lymphocytes % (A) 5 %; MCH 28.3 pg (25.0-35.0); MCHC 32.9 g/dL (31.0-37.0); Mean Platelet Volume 9.4; Monocytes # (A) 0.5 k/uL (0-1.0); Monocytes % (A) 3 %; Neutrophils % (A) 89 %; Platelet Count 172 k/uL (150-450); RBC 2.39 m/uL (4.30-5.90); RDW 17.2 % (11.5-15.5); WBC 14.7 k/uL (3.8-10.6)
[2020-12-25] MEDS: AMOXIC-POT CLAV 500-125 MG 1 EACH TAB PO SCH ×2 (08:53→20:39)
[2020-12-25] MEDS: FUROSEMIDE 20 MG TAB PO SCH (08:53)
[2020-12-25] MEDS: ASPIRIN 81 MG PO SCH (08:53)
[2020-12-25] MEDS: ENOXAPARIN 30 MG/0.3 ML SYRINGE SQ SCH ×2 (08:53→10:30)
[2020-12-25] MEDS: ASCORBIC ACID 500 MG TAB PO SCH (08:53)
[2020-12-25] MEDS: CHOLECALCIFEROL 25 MCG (1000 IU) TABLET PO SCH (08:54)
[2020-12-25] MEDS: ZINC SULFATE 220 MG CAP PO SCH (08:54)
[2020-12-25] MEDS: dexAMETHasone 2 MG TAB PO SCH (08:54)
[2020-12-25] MEDS: METOPROLOL TARTRATE 50 MG TAB PO SCH ×2 (08:54→20:39)
[2020-12-25 08:59] LABS: HGB 6.8 gm/dL (13.0-17.5)
--- NOTE | 2020-12-25 11:42 | P.PN ---
Subjective Progress Note Date: 12/25/20 COPD exacerbation, A. fib with RVR, pneumonia This is a pleasant 89-year-old gentleman who follows with Dr. Boss as his primary care provider. He has history of hypertension, CVA, coronary artery disease with previous coronary artery bypass grafting, COPD, seizure disorder, previous smoker, lung cancer. He presented to the emergency room yesterday with complaints of increasing shortness of breath, chest tightness and wheezing. He was found to be in atrial fibrillation with a rapid ventricular response. Chest x-ray revealed bilateral interstitial pneumonia. Cardiomegaly. Small right pleural effusion and pleural reaction at the right lung base. White count 17.4. Hemoglobin 9.1. Sodium 139. Potassium 5.4. Creatinine 3.75. Presenting creatinine was 5.09. Pro-calcitonin greater than 100. Troponin 0.105. C- reactive protein 58.6. Andres virus positive. He is seen today in consultation on the selective care unit. The patient is a poor historian. Unable to determine when his symptoms started. He is currently resting fairly comfortably in bed. Awake and alert in no acute distress. Maintaining O2 saturations in the high 90s on 3 L/m per nasal cannula. Afebrile. Slightly tachycardic. Ultrasound of the kidneys revealed no hydronephrosis or nephrolithiasis bilaterally. His initiated on a Cardizem drip at 10 mg per hour, heparin drip and antibiotics in the form of ceftriaxone and azithromycin. His initiated on Decadron 10 mg IV daily. Progress note dated 12/17/2020. 89-year-old black male, seen by our nurse practitioner yesterday in consultation. The patient has a history of hypertension, CVA, coronary disease, previous bypass grafting, COPD, seizure disorder, and lung cancer. The patient apparently presented to the emergency department with complaints of increasing shortness of breath, chest tightness, and wheezing. He was found to have atrial fibrillation with RVR, and also was positive for coronavirus infection. The patient seems be recently comfortable this time. He is on 3 L. Saturations are 97%. Heart rate 86. Respiratory rate 18. No audible wheezing, use of accessory muscles, or conversational dyspnea. The patient is not a particularly good historian. White count 15.8, hemoglobin 7.9, hematocrit 24.8, and platelet count 120,000. PTT is 37.8. Sodium 141, potassium 3.4, chlorides 104, CO2 25, anion gap 12, BUN 97, and creatinine 2.67. Initial lactic acid 2.2. Repeat lactic acid 1.1. Chest x-ray shows bilateral interstitial pneumonia with cardiomegaly. There is a small right-sided pleural effusion. Progress note dated 12/18/2020. 89-year-old black male, seen in consultation 2 days ago. I saw the patient yesterday in follow-up. The patient has a history of essential hypertension, CVA, coronary artery disease, previous bypass grafting, COPD, seizure disorder, and lung cancer. The patient presented to the emergency department with complaints of increasing shortness of breath, chest tightness and wheezing, and was found to have atrial fibrillation with RVR, and also tested positive for coronavirus infection. Currently, the patient appears to be relatively comfortable. He is on 3 L nasal cannula, and his saturations are 100%. Blood pressure 112/72, heart rate 89, respiratory rate 18, and his temperature is 97.8. Labs show a white count of 14.6, hemoglobin 7.8, hematocrit 25.6, and platelet count 121,000. D-dimer is 2.0. Sodium 141, potassium 3.8, chlorides 108, CO2 26, anion gap 7, BUN 76, creatinine 2.19. No recent chest x-ray to review. The patient is seen today 12/19/2020 in follow-up on the cardiac floor. He is currently resting comfortably in bed. Awake, alert and in no acute distress. He is maintaining O2 saturation in the 90s on 3 L/m per nasal cannula. Lactated Ringer's at 75 ML's per hour. He's been afebrile. Hemodynamically stable. Chest x-ray reveals evidence of congestive heart failure and underlying COPD. Chronic pleural reaction. Blood cultures reveal no growth. White count 12.4. Hemoccult was 7.7. Platelets 113. Sodium 141. Potassium 4.0. Creatinine 2.09. ProBNP 36,700. He remains on Decadron, Lovenox, vitamin supplements. Antibiotics in the form of Unasyn. The patient is seen today 12/20/2020 in follow-up on the selective care unit. He is currently resting comfortably in bed. Awake and alert in no acute distress. Rectal maintaining O2 saturations in the 90s on 3 L/m per nasal cannula. She's been afebrile. Hemodynamically stable. Blood cultures reveal no growth. No new labs today. He remains on Decadron, Lovenox, vitamin supplements. Antibiotics in the form of Unasyn. Lactated Ringer's at 75 ML's per hour. The patient is seen today 12/21/2020 in follow-up on the selective care unit. He has currently resting comfortably in bed. Awake and alert in no acute distress. He is on 2 L/m per nasal cannula. O2 saturation 98%. White count 17.0. Hemoglobin 8.9. Sodium 140. Potassium 3.7. Creatinine 1.92. He is continued on Unasyn. Remains on Decadron, Lovenox, vitamin supplements. Echocardiogram reveals moderate impaired left ventricular systolic function with ejection fraction 40-45%. Severe pulmonary hypertension. The patient is seen today 12/22/2020 in follow-up on the selective care unit. He is currently resting comfortably in bed. Maintaining O2 saturations in the 90s on 2 L/m per nasal cannula. Chest x-ray shows cardiomegaly with chronic parenchymal changes with right greater than left bilateral multifocal opacities and tiny bilateral pleural effusions. No change compared to previous. 0.9 normal saline @ 20 ML's per hour. He is continued on Decadron, Lovenox, vitamin supplements. Antibiotics in the form of Unasyn. Blood cultures reveal no growth. White count 18.5. Hemoglobin 8.8. Lymphocytes 0.4. Sodium 141. Potassium 3.9. Creatinine 1.82. The patient is seen today 12/23/2020 in follow-up on the selective care unit. He is awake and alert in no acute distress. Resting quite comfortably in bed. Maintaining O2 saturations in the 90s on 4 L/m per nasal cannula. No IV fluids. Pro-calcitonin down to 3.6. He remains on Unasyn. He remains on dexamethasone, Lovenox, vitamin supplements. Transitioned to oral diuretics. 12/24 2020, the patient is being seen for a follow-up. The patient remains on 4 L of T3ynyff cannula to maintain a saturation above 90%. Is a case of COVID-19 related pneumonia with secondary story failure. His superinfection is also suspected knowing that the patient's pro-calcitonin level was elevated significantly. The most recent chest x-ray showing diffuse but the pulmonary infiltrates right more than left. The pro-calcitonin level is down to 3.6 from 12/22/2020. The white cell count of 18.5 with a hemoglobin of 8.9. Platelet count is stable at 178. The patient continues to have some lymphopenia. Creatinine is down to 1.8 with the rest of the electrodes being within normal limits. She remains on empiric antibiotic coverage with IV Unasyn initially and later on Augmentin. He is on Decadron 4 mg by mouth daily. He is on Lasix 20 mg by mouth daily and he is also on Lovenox 30 mg subcu for DVT prophylaxis. 12/25/2020, the patient is being seen for a follow-up. He is a case of COVID-19 infection/pneumonia with superinfection, possibly a pneumonia based on elevated calcitonin level. The chest x-ray was showing patchy bilateral infiltrates and cardiomegaly. This was the x-ray from yesterday. Based on this, the patient was kept on a combination of Decadron currently on 2 mg and the patient is also on a course of Augmentin 875 mg twice a day after being treated with IV Unasyn. This morning, the patient is on oxygen on 4 L with a pulse ox of 94%. Remains on Lovenox 30 mg subcu for DVT prophylaxis. With that was of 14.7. Hemoglobin dropped down to 6.8 with a platelet count of 172. Coagulation profile has been adequate from prior evaluations. His creatinine is up to 2.27 with a BUN of 62 and the patient had a follow-up pro-calcitonin level of 3.6. Stool for occult blood was also negative. Units of packed RBC has already been ordered for this patient. Objective - Vital Signs Vital signs: Vital Signs Temp 97.7 F 12/25/20 08:07 Pulse 95 12/25/20 08:07 Resp 24 12/25/20 08:07 BP 138/85 12/25/20 08:07 Pulse Ox 94 L 12/25/20 08:07 Intake & Output 12/24/20 12/25/20 12/25/20 18:59 06:59 18:59 Intake Total 720 462 240 Output Total 300 Balance 420 462 240 Weight 50 kg 53 kg Intake: Oral 720 462 240 Output: Urine 300 Other: Voiding Method Urinal Urinal # Voids 1 # Bowel Movements 1 1 - Exam No acute distress, pleasant 89-year-old gentleman, poor historian, currently on 4 L nasal cannula, with saturations at 95%. No obvious respiratory distress. HEENT examination is grossly unremarkable. Neck supple. Full range of motion. No adenopathy thyromegaly or neck vein distention. Cardiovascular examination reveals regular rhythm rate. S1-S2 normal. No S3 or S4. No discernible murmur noted. Heart rate 105 bpm. Lungs reveal scattered rhonchi and crackles. Breath sounds equal bilaterally. He is not taking deep breaths. No distinct wheezes noted. Abdomen soft bowel sounds are heard. No masses or tenderness. Extremities are intact. No cyanosis clubbing or edema. Skin is without rash or lesion. Neurologic examination is brief but nonfocal. - Labs CBC & Chem 7: 12/25/20 07:21 12/25/20 07:21 Labs: Abnormal Lab Results - Last 24 Hours (Table) 12/25/20 12/25/20 Range/Units 07:21 07:21 WBC 14.7 H (3.8-10.6) k/uL RBC 2.39 L (4.30-5.90) m/uL Hgb 6.8 L* D (13.0-17.5) gm/dL Hct 20.6 L (39.0-53.0) % RDW 17.2 H (11.5-15.5) % Neutrophils # 13.0 H (1.3-7.7) k/uL Lymphocytes # 0.7 L (1.0-4.8) k/uL Chloride 109 H (98-107) mmol/L BUN 62 H (9-20) mg/dL Creatinine 2.27 H (0.66-1.25) mg/dL Glucose 108 H (74-99) mg/dL Calcium 8.2 L (8.4-10.2) mg/dL Total Protein 5.6 L (6.3-8.2) g/dL Albumin 2.7 L (3.5-5.0) g/dL Assessment and Plan Plan: 1 Acute hypoxemic respiratory failure secondary to acute COVID-19 pneumonia, cannot rule out underlying bacterial pneumonia. 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 Pro-calcitonin level has declined down to 3.6. Leukocytosis still present. Chest x-ray showing diffuse but the pulmonary infiltrates right more than left consistent more so with COVID-19 related pneumonia. Overall pulmonary status is stable. The patient is suspected to have a superinfection based on an elevated pro-calcitonin level. Remains on Decadron. Remains on Augmentin. Repeat chest x-ray will be obtained for tomorrow. He is white cell count is down to 14.7. Nontender 2 Leukocytosis, pro-calcitonin greater than 100 secondary to above, currently down to 3.6 3 Acute exacerbation of systolic congestive heart failure 4 Acute renal failure with a history of chronic renal failure secondary to nephrosclerosis, creatinine 2.27 5 Atrial fibrillation with a rapid ventricular response, currently atrial tachyc ardia, on beta blockers 6 Recent CVA 7 Troponin leak 8 Coronary artery disease with previous history of coronary artery bypass grafting 9 Chronic obstructive pulmonary disease 10 Remote history of lung cancer, details of which are unclear 11 Former smoker 12 acute drop in hemoglobin down to 6.8 without evidence of any bleeding. Acute anemia. Patient will receive 1 unit of packed RBC. Plan: His urination is stable with FiO2 to maintain saturation above 90% currently on 4 L Continue oral Augmentin Continue Decadron Agree with transfusion with units of packed RBC Repeat chest x-ray in a.m. Monitor renal function Monitor mental status Remains on Decadron, Lovenox, vitamin supplements Recommend a bedside swallow evaluation We will continue to follow
--- NOTE | 2020-12-25 11:51 | P.PN ---
Subjective Patient is seen in follow-up for acute kidney injury on chronic kidney disease. Creatinine 2.27 today. Hemoglobin 6.8. No active bleeding. Will be receiving a unit of blood today. No edema. Hemodynamically stable. Oral intake fair. Currently on 4 L nasal cannula. Vital signs are stable. General: The patient appeared well nourished and normally developed. HEENT: Head exam is unremarkable. Neck is without jugular venous distension. LUNGS: Breath sounds decreased. HEART: Rate and Rhythm are regular. ABDOMEN: Soft, no distention. EXTREMITITES: No edema. Objective - Vital Signs Vital signs: Vital Signs Temp 97.4 F L 12/25/20 11:46 Pulse 84 12/25/20 11:46 Resp 22 12/25/20 11:46 BP 127/73 12/25/20 11:46 Pulse Ox 96 12/25/20 11:46 Intake & Output 12/24/20 12/25/20 12/25/20 18:59 06:59 18:59 Intake Total 720 462 240 Output Total 300 Balance 420 462 240 Weight 50 kg 53 kg Intake: Oral 720 462 240 Output: Urine 300 Other: Voiding Method Urinal Urinal # Voids 1 # Bowel Movements 1 1 - Labs CBC & Chem 7: 12/25/20 07:21 12/25/20 07:21 Labs: Abnormal Lab Results - Last 24 Hours (Table) 12/25/20 12/25/20 Range/Units 07:21 07:21 WBC 14.7 H (3.8-10.6) k/uL RBC 2.39 L (4.30-5.90) m/uL Hgb 6.8 L* D (13.0-17.5) gm/dL Hct 20.6 L (39.0-53.0) % RDW 17.2 H (11.5-15.5) % Neutrophils # 13.0 H (1.3-7.7) k/uL Lymphocytes # 0.7 L (1.0-4.8) k/uL Chloride 109 H (98-107) mmol/L BUN 62 H (9-20) mg/dL Creatinine 2.27 H (0.66-1.25) mg/dL Glucose 108 H (74-99) mg/dL Calcium 8.2 L (8.4-10.2) mg/dL Total Protein 5.6 L (6.3-8.2) g/dL Albumin 2.7 L (3.5-5.0) g/dL Assessment and Plan Plan: Assessment: 1. Acute kidney injury mostly prerenal secondary to infection/anemia. Creatinine 2.27 today. No proteinuria on UA. No evidence of hydronephrosis noted on kidney ultrasound 2. Chronic kidney disease stage IIIB with baseline creatinine 1.5-2.3 earlier this year. Etiology is nephrosclerosis. 3. COVID-19 pneumonia with component of aspiration maintained on antibiotics. 4. Anemia of chronic kidney disease. Status post IV iron. Maintained on Aranesp. 5. Chronic diastolic CHF with moderate mitral regurgitation, severe tricuspid regurgitation and pulmonary hypertension. Plan: Encourage oral intake. Maintain oral Lasix. Scheduled to receive a unit of blood today. Repeat electrolytes in the morning.
--- NOTE | 2020-12-25 12:16 | PN ---
PROGRESS NOTE DATE OF SERVICE: 12/25/2020. REASON FOR FOLLOWUP: Pneumonia. INTERVAL HISTORY: The patient is afebrile. The patient is breathing slightly comfortable, still on 4 L nasal cannula. Patient denies having any chest pain, did have a cough, not bringing up any sputum. No abdominal pain or diarrhea. PHYSICAL EXAMINATION: Blood pressure 138/85 with a pulse of 95, temperature 97.7. He is 94% on 4 L nasal cannula. General description is an elderly male lying in bed in no distress. RESPIRATORY SYSTEM: Unlabored breathing, decreased intensity of breath sounds. No wheeze. HEART: S1, S2. Regular rate and rhythm. ABDOMEN: Soft, no tenderness. LABS: Hemoglobin is down to 6.8, white count 14.7. Creatinine is worse to 2.27. DIAGNOSTIC IMPRESSION AND PLAN: Patient admitted to the hospital with shortness of breath which is multifactorial with a component of pneumonia concern for possible aspiration covered with Augmentin with worsening of his kidney function and a drop in hemoglobin being addressed by admitting team. Prognosis remains to be guarded. MMODL / IJN: [id number] /
--- NOTE | 2020-12-25 20:21 | P.PN ---
Subjective Progress Note Date: 12/25/20 Fitz Blue, is an 89 year old male who presented to [facility] emergency room with a chief complaint of worsening shortness of breath, patient stated that he started having shortness of breath on the day of presentation that progressed to significant breathing difficulty EMS were sushma smith, they found patient to be in significant respiratory distress he was started on nonrebreather mask and was treated with IV Solu-Medrol and DuoNeb updrafts and was brought in to [facility] emergency room. In the emergency room patient was evaluated, his vital examination on presentation revealed a temperature of 98.6 pulse 142 respiration 18 blood pressure 99/78 pulse ox 94% on room air, laboratory data on presentation revealed a white blood count of 13.5 hemoglobin 10.5 platelet count 134 d-dimer 3.88, sodium 140 potassium 5.3 chloride 106 CO2 16 BUN 19 9 creatinine 5.09 glucose level was 136 plasma lactic acid was 3.5 troponin level was elevated at 0.105 C-reactive p rotein 58.6 Procalcitonin more than 100 and coronavirus PCR was positive. Chest x-ray was done in the emergency room and revealed bilateral interstitial pneumonia, cardiomegaly, small right pleural effusion and pleural reaction , EKG was done in the emergency room and revealed atrial fibrillation with rapid ventricular response and nonspecific ST abnormality . Patient was admitted to telemetry floor for further evaluation and treatment. Patient was admitted to [facility] in August 2020 after having a stroke, he was discharged to [facility] on the [facility] for rehabilit ation and was discharged home about 6 weeks ago. His past medical history is also significant for hypertension, hyperlipidemia, coronary artery disease with history of coronary artery bypass graft surgery, history of COPD, history of pulmonary hypertension, history of multiple lumbar compression vertebral fractures, history of anemia, history of carotid stenosis, history of osteoarthritis, and history of protein calorie malnutrition. On 12/17/2020 patient was seen and examined on the medical floor he is alert and oriented 3 in no apparent distress he is complaining of nausea otherwise he de nies any complaints there is no fever or chills no headache or dizziness no chest pain no shortness of breath no cough no vomiting no abdominal pain no diarrhea no blood in the stools no burning with urination no frequency or urgency and no hematuria. Kidney function has improved significantly since yesterday, otherwise no change in condition. On 12/18/2020 patient was seen and examined on the medical floor he is alert and oriented 3 in no apparent distress he is complaining of nausea otherwise he denies any complaints there is no fever or chills no headache or dizziness no chest pain , he has some shortness of breath no cough no vomiting no abdominal pain no diarrhea no blood in the stools no burning with urination no frequency or urgency and no hematuria. Kidney function has improved significantly since yesterday, otherwise no change in condition. On 12/19/2020 patient was seen and examined on the medical floor he is alert and oriented 3 in no apparent distress he is complaining of nausea otherwise he denies any complaints there is no fever or chills no headache or dizziness no chest pain , he has some shortness of breath no cough no vomiting no abdominal pain no diarrhea no blood in the stools no burning with urination no frequency or urgency and no hematuria. Kidney function has improved significantly since yesterday, otherwise no change in condition. BNP is significantly elevated, patient still having shortness of breath, will check Echocardiogram and consult cardiology. On 12/20/2020 patient was seen and examined on the medical floor he is alert and oriented 3 in no apparent distress he is complaining of nausea otherwise he denies any complaints there is no fever or chills no headache or dizziness no chest pain , he has some shortness of breath no cough no vomiting no abdominal pain no diarrhea no blood in the stools no burning with urination no frequency or urgency and no hematuria. Kidney function has improved significantly since yesterday, otherwise no change in condition. BNP is significantly elevated, patient still having shortness of breath, will check Echocardiogram and consult cardiology. patient was started on IV lasix, awaiting Echo. On 12/21/2020 patient was seen and examined on the medical floor he is alert and oriented 3 in no apparent distress he is complaining of nausea otherwise he denies any complaints there is no fever or chills no headache or dizziness no chest pain , he has some shortness of breath no cough no vomiting no abdominal pain no diarrhea no blood in the stools no burning with urination no frequency or urgency and no hematuria. Kidney function has improved significantly since yesterday, otherwise no change in condition. BNP is significantly elevated, patient still having shortness of breath, will check Echocardiogram and consult cardiology. patient was started on IV lasix, repeat CXR ordered for tomorrow. On 12/22/2020 patient was seen and examined on the medical floor he is alert and oriented 3 in no apparent distress he is complaining of nausea otherwise he denies any complaints there is no fever or chills no headache or dizziness no chest pain , he has some shortness of breath no cough no vomiting no abdominal pain no diarrhea no blood in the stools no burning with urination no frequency or urgency and no hematuria. Kidney function has improved significantly since yesterday, otherwise no change in condition. BNP is significantly elevated, patient still having shortness of breath, will check Echocardiogram and consult cardiology. patient was started on IV lasix, repeat CXR ordered for tomorrow. at this time will switch to oral lasix and oral Decadron continue to monitor, possi ble discharge in the next 1-2 days. On 12/23/2020 Patient was seen and examined on the medical floor, he is alert and oriented x 3 in no distress, he denies any complaints there is no fever or chills no headache or dizziness no chest pain no shortness of breath no palpitation no cough no nausea or vomiting no abdominal pain no diarrhea no blood in the stools no burning with urination no frequency or urgency and no hematuria, there is no weakness or numbness in any of the extremities no change in vision speech or gait. White blood count is still significantly elevated pro calcitonin is elevated chest x-rays revealing some worsening infectious disease following awaiting further recommendation will continue to monitor On 12/24/2020 Patient was seen and examined on the medical floor, he is alert and oriented x 3 in no distress, he denies any complaints there is no fever or chills no headache or dizziness no chest pain no shortness of breath no palpitation no cough no nausea or vomiting no abdominal pain no diarrhea no blood in the stools no burning with urination no frequency or urgency and no hematuria, there is no weakness or numbness in any of the extremities no change in vision speech or gait. White blood count is still significantly elevated pro calcitonin is elevated chest x-rays revealing some worsening opacities, infectious disease following awaiting further recommendation will continue to monitor, today Will decrease dose of Decadron and continue to monitor On 12/25/2020 Patient was seen and examined on the medical floor, he is alert and oriented x 3 in no distress, he denies any complaints there is no fever or chills no headache or dizziness no chest pain no shortness of breath no palpitation no cough no nausea or vomiting no abdominal pain no diarrhea no blood in the stools no burning with urination no frequency or urgency and no hematuria, there is no weakness or numbness in any of the extremities no change in vision speech or gait. Hemoglobin is down to 6.8 today 1 unit of red blood cell transfusion was ordered will follow closely Objective - Vital Signs Vital signs: Vital Signs Temp 97.7 F 12/25/20 08:07 Pulse 95 12/25/20 08:07 Resp 24 12/25/20 08:07 BP 138/85 12/25/20 08:07 Pulse Ox 94 L 12/25/20 08:07 Intake & Output 12/24/20 12/25/20 12/25/20 18:59 06:59 18:59 Intake Total 720 462 240 Output Total 300 Balance 420 462 240 Weight 50 kg 53 kg Intake: Oral 720 462 240 Output: Urine 300 Other: Voiding Method Urinal Urinal # Voids 1 # Bowel Movements 1 1 - Exam In general patient is alert and oriented x3 in no distress HEENT head normocephalic and atraumatic Neck is supple no JVD no goiter no lymphadenopathy no carotid bruit Chest examination is clear to auscultation no crackles no wheezing Cardiac exam reveals regular heart sounds S1 and S2 no gallops no murmurs Abdomen is soft nontender no organomegaly with normal bowel sounds Extremity exam reveals no edema no cyanosis or clubbing Neurological examination reveals no gross focal deficits - Labs CBC & Chem 7: 12/25/20 07:21 12/25/20 07:21 Labs: Abnormal Lab Results - Last 24 Hours (Table) 12/25/20 12/25/20 Range/Units 07:21 07:21 WBC 14.7 H (3.8-10.6) k/uL RBC 2.39 L (4.30-5.90) m/uL Hgb 6.8 L* D (13.0-17.5) gm/dL Hct 20.6 L (39.0-53.0) % RDW 17.2 H (11.5-15.5) % Neutrophils # 13.0 H (1.3-7.7) k/uL Lymphocytes # 0.7 L (1.0-4.8) k/uL Chloride 109 H (98-107) mmol/L BUN 62 H (9-20) mg/dL Creatinine 2.27 H (0.66-1.25) mg/dL Glucose 108 H (74-99) mg/dL Calcium 8.2 L (8.4-10.2) mg/dL Total Protein 5.6 L (6.3-8.2) g/dL Albumin 2.7 L (3.5-5.0) g/dL Assessment and Plan Plan: 1. COVID-19 infection 2. Bilateral interstitial pneumonia, possibly related to COVID-19, however bacterial superimposed infection cannot be ruled out 3. Evidence of sepsis, with leukocytosis, hypotension, and elevated lactic acid 4. Acute on chronic renal failure, creatinine on admission in August was 1.5 nephrology consultation requested 5. Severe hyperkalemia 6. Underlying history of COPD 7. Recent history of stroke in August 2020 8. Underlying history of hypertension 9. Underlying history of hyperlipidemia 10. Underlying history of coronary artery disease with previous history of coronary artery bypass graft surgery 11. Underlying history of multiple lumbar compression vertebral fractures. 12. Previous history of anemia and history of GI bleed, Hgb down to 7.7 will consult GI At this time patient is admitted to telemetry floor He received IV fluid boluses He was started on IV heparin and IV Cardizem drip He was started on IV antibiotic Rocephin and Zithromax He was started on steroids prednisone 40 mg daily Pulmonary, nephrology, infectious disease and cardiology consultation requested. Prognosis is poor due to advanced age, severity of illness, and multiple und erlying medical conditions
[2020-12-26 07:32] LABS: Albumin 2.9 g/dL (3.5-5.0); Calcium 8.6 mg/dL (8.4-10.2); Magnesium 1.8 mg/dL (1.6-2.3); Total Bilirubin 0.6 mg/dL (0.2-1.3); Total Protein 5.9 g/dL (6.3-8.2)
--- NOTE | 2020-12-26 07:46 | XR ---
EXAMINATION TYPE: XR chest 1V portable DATE OF EXAM: 12/26/2020 COMPARISON: Chest x-ray 12/24/2020 HISTORY: Covid infection, abnormal chest x-ray TECHNIQUE: Single frontal view of the chest is obtained. FINDINGS: There is not significant interval change. Interstitium is increased bilaterally, patchy ai rspace disease also suspected. Heart remains enlarged. Patient is post median sternotomy. Patient is rotated. Apical pleural thickening again noted on the right. No evident pneumothorax or sizable effus ion. IMPRESSION: Findings consistent with patient's history of Covid pneumonia, edema not excluded, there may be underlying interstitial lung disease. Cardiomegaly.
[2020-12-26 07:56] LABS: Anisocytosis Slight; HCT 29.7 % (39.0-53.0); Hypochromasia Moderate; MCV 90.2 fL (80.0-100.0); Mean Platelet Volume 8.9; Platelet Count 197 k/uL (150-450); Poikilocytosis Moderate; RBC 3.29 m/uL (4.30-5.90); RDW 17.8 % (11.5-15.5)
[2020-12-26 08:25] LABS: HGB 9.2 gm/dL (13.0-17.5)
[2020-12-26] MEDS: METOPROLOL TARTRATE 50 MG TAB PO SCH ×2 (08:28→20:33)
[2020-12-26] MEDS: dexAMETHasone 2 MG TAB PO SCH (08:28)
[2020-12-26] MEDS: ASCORBIC ACID 500 MG TAB PO SCH (08:28)
[2020-12-26] MEDS: CHOLECALCIFEROL 25 MCG (1000 IU) TABLET PO SCH (08:28)
[2020-12-26] MEDS: FUROSEMIDE 20 MG TAB PO SCH (08:28)
[2020-12-26] MEDS: ASPIRIN 81 MG PO SCH (08:28)
[2020-12-26] MEDS: ZINC SULFATE 220 MG CAP PO SCH (08:28)
[2020-12-26] MEDS: AMOXIC-POT CLAV 500-125 MG 1 EACH TAB PO SCH ×2 (08:29→20:34)
[2020-12-26 08:44] LABS: C Reactive Protein 7.5 mg/dL (<1.0)
[2020-12-26 09:13] LABS: Band Neutrophils % 1 %; Metamyelocytes % 1 %; Myelocytes % 3 %; Neutrophils % (M) 92 %; Nucleated Red Blood Cells 6 /100 WBC (0-0); Total Cells Counted 200
[2020-12-26 09:15] LABS: Lymphocytes # (M) 0.52 k/uL (1.0-4.8); Metamyelocytes # (M) 0.17 k/uL (0); Monocytes # (M) 0.35 k/uL (0-1.0); Myelocytes # (M) 0.52 k/uL (0); WBC 17.4 k/uL (3.8-10.6)
[2020-12-26 09:17] LABS: Polychromasia Present
[2020-12-26] MEDS: ONDANSETRON 4 MG/2 ML VIAL IVP PRN (10:39)
--- NOTE | 2020-12-26 11:15 | P.PN ---
Subjective Patient is seen in follow-up for acute kidney injury on chronic kidney disease. Creatinine 2.1 today. Hemoglobin improved post blood transfusion given December 25. No active bleeding. No edema. Hemodynamically stable. Oral intake fair. Currently on 5 L nasal cannula. Vital signs are stable. General: The patient appeared well nourished and normally developed. HEENT: On nasal cannula. LUNGS: Breath sounds decreased. HEART: Rate and Rhythm are regular. ABDOMEN: Soft, no distention. EXTREMITITES: No edema. Objective - Vital Signs Vital signs: Vital Signs Temp 98 F 12/26/20 10:48 Pulse 69 12/26/20 10:48 Resp 22 12/26/20 10:48 BP 129/89 12/26/20 10:48 Pulse Ox 92 L 12/26/20 10:48 Intake & Output 12/25/20 12/26/20 12/26/20 18:59 06:59 18:59 Intake Total 550 Output Total 1000 780 Balance -450 -780 Intake: Oral 240 Blood Product 310 Rc Irr As1 Unit 310 [id number] Output: Urine 1000 780 Other: Voiding Method Urinal Urinal # Voids 2 2 # Bowel Movements 1 - Labs CBC & Chem 7: 12/26/20 06:59 12/26/20 06:59 Labs: Abnormal Lab Results - Last 24 Hours (Table) 12/25/20 12/26/20 12/26/20 Range/Units 10:33 06:59 06:59 WBC 17.4 H (3.8-10.6) k/uL RBC 3.29 L (4.30-5.90) m/uL Hgb 9.2 L D (13.0-17.5) gm/dL Hct 29.7 L (39.0-53.0) % RDW 17.8 H (11.5-15.5) % Neutrophils # (Manual) 16.10 H (1.3-7.7) k/uL Lymphocytes # (Manual) 0.52 L (1.0-4.8) k/uL Metamyelocytes # (Man) 0.17 H (0) k/uL Myelocytes # (Manual) 0.52 H (0) k/uL Nucleated RBCs 6 H (0-0) /100 WBC D-Dimer (<0.60) mg/L FEU Chloride 110 H (98-107) mmol/L BUN 62 H (9-20) mg/dL Creatinine 2.10 H (0.66-1.25) mg/dL Lactate Dehydrogenase 1482 H (313-618) U/L C-Reactive Protein 7.5 H (<1.0) mg/dL Total Protein 5.9 L (6.3-8.2) g/dL Albumin 2.9 L (3.5-5.0) g/dL Crossmatch See Detail 12/26/20 Range/Units 06:59 WBC (3.8-10.6) k/uL RBC (4.30-5.90) m/uL Hgb (13.0-17.5) gm/dL Hct (39.0-53.0) % RDW (11.5-15.5) % Neutrophils # (Manual) (1.3-7.7) k/uL Lymphocytes # (Manual) (1.0-4.8) k/uL Metamyelocytes # (Man) (0) k/uL Myelocytes # (Manual) (0) k/uL Nucleated RBCs (0-0) /100 WBC D-Dimer 4.22 H (<0.60) mg/L FEU Chloride (98-107) mmol/L BUN (9-20) mg/dL Creatinine (0.66-1.25) mg/dL Lactate Dehydrogenase (313-618) U/L C-Reactive Protein (<1.0) mg/dL Total Protein (6.3-8.2) g/dL Albumin (3.5-5.0) g/dL Crossmatch Microbiology - Last 24 Hours (Table) 12/25/20 09:00 Gram Stain - Preliminary Sputum Sputum Culture - Preliminary Gram Neg Bacilli Gram Neg Bacilli#2 Assessment and Plan Plan: Assessment: 1. Acute kidney injury mostly prerenal secondary to infection/anemia. Creatinine 2.1 today. No proteinuria on UA. No evidence of hydronephrosis noted on kidney ultrasound 2. Chronic kidney disease stage IIIB with baseline creatinine 1.5-2.3 earlier this year. Etiology is nephrosclerosis. 3. COVID-19 pneumonia with component of aspiration maintained on antibiotics. Sputum culture positive for gram-negative bacilli. 4. Anemia of chronic kidney disease. Status post IV iron. Maintained on Clif sara. 5. Chronic diastolic CHF with moderate mitral regurgitation, severe tricuspid regurgitation and pulmonary hypertension. Plan: Encourage oral intake. Maintain oral Lasix. Continue to monitor renal function and urine output.
--- NOTE | 2020-12-26 14:42 | P.PN ---
Subjective Progress Note Date: 12/26/20 COPD exacerbation, A. fib with RVR, pneumonia This is a pleasant 89-year-old gentleman who follows with Dr. Boss as his primary care provider. He has history of hypertension, CVA, coronary artery disease with previous coronary artery bypass grafting, COPD, seizure disorder, previous smoker, lung cancer. He presented to the emergency room yesterday with complaints of increasing shortness of breath, chest tightness and wheezing. He was found to be in atrial fibrillation with a rapid ventricular response. Chest x-ray revealed bilateral interstitial pneumonia. Cardiomegaly. Small right pleural effusion and pleural reaction at the right lung base. White count 17.4. Hemoglobin 9.1. Sodium 139. Potassium 5.4. Creatinine 3.75. Presenting creatinine was 5.09. Pro-calcitonin greater than 100. Troponin 0.105. C- reactive protein 58.6. Andres virus positive. He is seen today in consultation on the selective care unit. The patient is a poor historian. Unable to determine when his symptoms started. He is currently resting fairly comfortably in bed. Awake and alert in no acute distress. Maintaining O2 saturations in the high 90s on 3 L/m per nasal cannula. Afebrile. Slightly tachycardic. Ultrasound of the kidneys revealed no hydronephrosis or nephrolithiasis bilaterally. His initiated on a Cardizem drip at 10 mg per hour, heparin drip and antibiotics in the form of ceftriaxone and azithromycin. His initiated on Decadron 10 mg IV daily. Progress note dated 12/17/2020. 89-year-old black male, seen by our nurse practitioner yesterday in consultation. The patient has a history of hypertension, CVA, coronary disease, previous bypass grafting, COPD, seizure disorder, and lung cancer. The patient apparently presented to the emergency department with complaints of increasing shortness of breath, chest tightness, and wheezing. He was found to have atrial fibrillation with RVR, and also was positive for coronavirus infection. The patient seems be recently comfortable this time. He is on 3 L. Saturations are 97%. Heart rate 86. Respiratory rate 18. No audible wheezing, use of accessory muscles, or conversational dyspnea. The patient is not a particularly good historian. White count 15.8, hemoglobin 7.9, hematocrit 24.8, and platelet count 120,000. PTT is 37.8. Sodium 141, potassium 3.4, chlorides 104, CO2 25, anion gap 12, BUN 97, and creatinine 2.67. Initial lactic acid 2.2. Repeat lactic acid 1.1. Chest x-ray shows bilateral interstitial pneumonia with cardiomegaly. There is a small right-sided pleural effusion. Progress note dated 12/18/2020. 89-year-old black male, seen in consultation 2 days ago. I saw the patient yesterday in follow-up. The patient has a history of essential hypertension, CVA, coronary artery disease, previous bypass grafting, COPD, seizure disorder, and lung cancer. The patient presented to the emergency department with complaints of increasing shortness of breath, chest tightness and wheezing, and was found to have atrial fibrillation with RVR, and also tested positive for coronavirus infection. Currently, the patient appears to be relatively comfortable. He is on 3 L nasal cannula, and his saturations are 100%. Blood pressure 112/72, heart rate 89, respiratory rate 18, and his temperature is 97.8. Labs show a white count of 14.6, hemoglobin 7.8, hematocrit 25.6, and platelet count 121,000. D-dimer is 2.0. Sodium 141, potassium 3.8, chlorides 108, CO2 26, anion gap 7, BUN 76, creatinine 2.19. No recent chest x-ray to review. The patient is seen today 12/19/2020 in follow-up on the cardiac floor. He is currently resting comfortably in bed. Awake, alert and in no acute distress. He is maintaining O2 saturation in the 90s on 3 L/m per nasal cannula. Lactated Ringer's at 75 ML's per hour. He's been afebrile. Hemodynamically stable. Chest x-ray reveals evidence of congestive heart failure and underlying COPD. Chronic pleural reaction. Blood cultures reveal no growth. White count 12.4. Hemoccult was 7.7. Platelets 113. Sodium 141. Potassium 4.0. Creatinine 2.09. ProBNP 36,700. He remains on Decadron, Lovenox, vitamin supplements. Antibiotics in the form of Unasyn. The patient is seen today 12/20/2020 in follow-up on the selective care unit. He is currently resting comfortably in bed. Awake and alert in no acute distress. Rectal maintaining O2 saturations in the 90s on 3 L/m per nasal cannula. She's been afebrile. Hemodynamically stable. Blood cultures reveal no growth. No new labs today. He remains on Decadron, Lovenox, vitamin supplements. Antibiotics in the form of Unasyn. Lactated Ringer's at 75 ML's per hour. The patient is seen today 12/21/2020 in follow-up on the selective care unit. He has currently resting comfortably in bed. Awake and alert in no acute distress. He is on 2 L/m per nasal cannula. O2 saturation 98%. White count 17.0. Hemoglobin 8.9. Sodium 140. Potassium 3.7. Creatinine 1.92. He is continued on Unasyn. Remains on Decadron, Lovenox, vitamin supplements. Echocardiogram reveals moderate impaired left ventricular systolic function with ejection fraction 40-45%. Severe pulmonary hypertension. The patient is seen today 12/22/2020 in follow-up on the selective care unit. He is currently resting comfortably in bed. Maintaining O2 saturations in the 90s on 2 L/m per nasal cannula. Chest x-ray shows cardiomegaly with chronic parenchymal changes with right greater than left bilateral multifocal opacities and tiny bilateral pleural effusions. No change compared to previous. 0.9 normal saline @ 20 ML's per hour. He is continued on Decadron, Lovenox, vitamin supplements. Antibiotics in the form of Unasyn. Blood cultures reveal no growth. White count 18.5. Hemoglobin 8.8. Lymphocytes 0.4. Sodium 141. Potassium 3.9. Creatinine 1.82. The patient is seen today 12/23/2020 in follow-up on the selective care unit. He is awake and alert in no acute distress. Resting quite comfortably in bed. Maintaining O2 saturations in the 90s on 4 L/m per nasal cannula. No IV fluids. Pro-calcitonin down to 3.6. He remains on Unasyn. He remains on dexamethasone, Lovenox, vitamin supplements. Transitioned to oral diuretics. 12/24 2020, the patient is being seen for a follow-up. The patient remains on 4 L of W3zewcm cannula to maintain a saturation above 90%. Is a case of COVID-19 related pneumonia with secondary story failure. His superinfection is also suspected knowing that the patient's pro-calcitonin level was elevated significantly. The most recent chest x-ray showing diffuse but the pulmonary infiltrates right more than left. The pro-calcitonin level is down to 3.6 from 12/22/2020. The white cell count of 18.5 with a hemoglobin of 8.9. Platelet count is stable at 178. The patient continues to have some lymphopenia. Creatinine is down to 1.8 with the rest of the electrodes being within normal limits. She remains on empiric antibiotic coverage with IV Unasyn initially and later on Augmentin. He is on Decadron 4 mg by mouth daily. He is on Lasix 20 mg by mouth daily and he is also on Lovenox 30 mg subcu for DVT prophylaxis. 12/25/2020, the patient is being seen for a follow-up. He is a case of COVID-19 infection/pneumonia with superinfection, possibly a pneumonia based on elevated calcitonin level. The chest x-ray was showing patchy bilateral infiltrates and cardiomegaly. This was the x-ray from yesterday. Based on this, the patient was kept on a combination of Decadron currently on 2 mg and the patient is also on a course of Augmentin 875 mg twice a day after being treated with IV Unasyn. This morning, the patient is on oxygen on 4 L with a pulse ox of 94%. Remains on Lovenox 30 mg subcu for DVT prophylaxis. With that was of 14.7. Hemoglobin dropped down to 6.8 with a platelet count of 172. Coagulation profile has been adequate from prior evaluations. His creatinine is up to 2.27 with a BUN of 62 and the patient had a follow-up pro-calcitonin level of 3.6. Stool for occult blood was also negative. Units of packed RBC has already been ordered for this patient. 12/26/2020, the patient essentially looks the same as yesterday and he remains on 5 L of oxygen by nasal cannula. His swallow mechanism has been suspected to be 4 and was suspected felt aspiration and for that reason we sent him for a swallow evaluation and the patient is having a modified barium swallow done today. He is a case of COVID-19 related pneumonia. His pro calcitonin level was elevated and is improving and is down to 1.53 also and we suspected superinfection and for that reason the patient was given antibiotics initially Zosyn and later on Augmentin. His chest x-ray from today is showing interstitial infiltrates bilaterally more so on the right where the right lung is essentially infiltrated in the left upper lobe was also infiltrated in the left lower lobe essentially spared. He is receiving Decadron at a dose of 2 mg by mouth daily. He is also on Lovenox and we had to stop it because of a drop in hemoglobin down to 6.8 and this can be essentially resumed as the patient has no evidence of bleeding. He received a unit of packed RBC and hemoglobin responded nicely and felt to 9.2. His creatinine is stable at 2.1 which is improved compared to yesterday. Objective - Vital Signs Vital signs: Vital Signs Temp 98 F 12/26/20 10:48 Pulse 69 12/26/20 10:48 Resp 22 12/26/20 13:24 BP 129/89 12/26/20 10:48 Pulse Ox 92 L 12/26/20 10:48 Intake & Output 12/25/20 12/26/20 12/26/20 18:59 06:59 18:59 Intake Total 550 Output Total 1000 780 300 Balance -450 -780 -300 Weight 53 kg Intake: Oral 240 Blood Product 310 Rc Irr As1 Unit 310 [id number] Output: Urine 1000 780 300 Other: Voiding Method Urinal Urinal # Voids 2 2 1 # Bowel Movements 1 1 - Exam No acute distress, pleasant 89-year-old gentleman, poor historian, currently on 5 L nasal cannula, with saturations at 95%. No obvious respiratory distress. HEENT examination is grossly unremarkable. Neck supple. Full range of motion. No adenopathy thyromegaly or neck vein distention. Cardiovascular examination reveals regular rhythm rate. S1-S2 normal. No S3 or S4. No discernible murmur noted. Heart rate 105 bpm. Lungs reveal scattered rhonchi and crackles. Breath sounds equal bilaterally. He is not taking deep breaths. No distinct wheezes noted. Abdomen soft bowel sounds are heard. No masses or tenderness. Extremities are intact. No cyanosis clubbing or edema. Skin is without rash or lesion. Neurologic examination is brief but nonfocal. - Labs CBC & Chem 7: 12/26/20 06:59 12/26/20 06:59 Labs: Abnormal Lab Results - Last 24 Hours (Table) 05/12/26/20 12/26/20 Range/Units 10:33 06:59 06:59 WBC 17.4 H (3.8-10.6) k/uL RBC 3.29 L (4.30-5.90) m/uL Hgb 9.2 L D (13.0-17.5) gm/dL Hct 29.7 L (39.0-53.0) % RDW 17.8 H (11.5-15.5) % Neutrophils # (Manual) 16.10 H (1.3-7.7) k/uL Lymphocytes # (Manual) 0.52 L (1.0-4.8) k/uL Metamyelocytes # (Man) 0.17 H (0) k/uL Myelocytes # (Manual) 0.52 H (0) k/uL Nucleated RBCs 6 H (0-0) /100 WBC D-Dimer (<0.60) mg/L FEU Chloride (98-107) mmol/L BUN (9-20) mg/dL Creatinine (0.66-1.25) mg/dL Lactate Dehydrogenase (313-618) U/L C-Reactive Protein (<1.0) mg/dL Total Protein (6.3-8.2) g/dL Albumin (3.5-5.0) g/dL Procalcitonin 1.53 H (0.02-0.09) ng/mL Crossmatch See Detail 12/26/20 12/26/20 Range/Units 06:59 06:59 WBC (3.8-10.6) k/uL RBC (4.30-5.90) m/uL Hgb (13.0-17.5) gm/dL Hct (39.0-53.0) % RDW (11.5-15.5) % Neutrophils # (Manual) (1.3-7.7) k/uL Lymphocytes # (Manual) (1.0-4.8) k/uL Metamyelocytes # (Man) (0) k/uL Myelocytes # (Manual) (0) k/uL Nucleated RBCs (0-0) /100 WBC D-Dimer 4.22 H (<0.60) mg/L FEU Chloride 110 H (98-107) mmol/L BUN 62 H (9-20) mg/dL Creatinine 2.10 H (0.66-1.25) mg/dL Lactate Dehydrogenase 1482 H (313-618) U/L C-Reactive Protein 7.5 H (<1.0) mg/dL Total Protein 5.9 L (6.3-8.2) g/dL Albumin 2.9 L (3.5-5.0) g/dL Procalcitonin (0.02-0.09) ng/mL Crossmatch Microbiology - Last 24 Hours (Table) 12/25/20 09:00 Gram Stain - Preliminary Sputum Sputum Culture - Preliminary Gram Neg Bacilli Gram Neg Bacilli#2 Assessment and Plan Plan: 1 Acute hypoxemic respiratory failure secondary to acute COVID-19 pneumonia, cannot rule out underlying bacterial pneumonia. Currently Decadron and the patient is also taking an oral Augmentin after being on Unasyn for a few days. Pro-calcitonin level has declined down to 1.3. Leukocytosis is present . Chest x-ray showing diffuse but the pulmonary infiltrates right more than left consis tent more so with COVID-19 related pneumonia. Overall pulmonary status is stable. The patient is on Decadron. Remains on Augmentin. Repeat chest x-ray will be obtained for tomorrow. He is white cell count is up to 17 2 Leukocytosis, pro-calcitonin greater than 100 secondary to above, currently down to 1.53 3 Acute exacerbation of systolic congestive heart failure 4 Acute renal failure with a history of chronic renal failure secondary to nephrosclerosis, creatinine 2.1 5 Atrial fibrillation with a rapid ventricular response, currently atrial tachycardia, on beta blockers 6 Recent CVA 7 Troponin leak 8 Coronary artery disease with previous history of coronary artery bypass grafting 9 Chronic obstructive pulmonary disease 10 Remote history of lung cancer, details of which are unclear 11 Former smoker 12 acute drop in hemoglobin down to 6.8 without evidence of any bleeding. Acute anemia. Patient received 1 unit of packed RBC. His Hb is up to 9.2 Plan: stable with FiO2 to maintain saturation above 90% currently on 4 L Continue oral Augmentin Continue Decadron Monitor renal function Monitor mental status Remains on Decadron, Lovenox, vitamin supplements swallow evaluation , the patient is undergoing a modified barium swallow. Awaiting further recommendations based on the results of the study. We will continue to follow
--- NOTE | 2020-12-26 16:58 | PN ---
PROGRESS NOTE DATE OF SERVICE: 12/26/2020. REASON FOR FOLLOW UP: Pneumonia. INTERVAL HISTORY: The patient is currently afebrile. He is breathing comfortably though. Denies any chest pain. Did have a cough. Not bringing up any sputum. No abdominal pain. No diarrhea. PHYSICAL EXAMINATION: Blood pressure is 129/89 with a pulse of 69, temperature 98. He is 92% on 5 L nasal cannula. General description is a middle-aged male lying in bed in no distress. Respiratory system: Unlabored breathing. Clear to auscultation anteriorly. Heart S1, S2. Regular rate and rhythm. Abdomen soft, no tenderness. Extremities: No edema of the feet. LABS: Hemoglobin 9.1, white count 14.4. BUN of 22, creatinine is 2.10. Urine now showing Gram-negative bacilli. DIAGNOSTIC IMPRESSION AND PLAN: Patient admitted to the hospital with pneumonia. Did have positive Covid with concern for possible aspiration. Sputum now showing gram negative. Patient is covered with Augmentin. We will adjust antibiotic further based on culture report. Continue supportive care. MMODL / IJN: [id number] /
--- NOTE | 2020-12-27 08:28 | XR ---
EXAMINATION TYPE: XR chest 1V DATE OF EXAM: 12/27/2020 COMPARISON: Chest x-ray 12/26/2020 HISTORY: Covid pneumonia TECHNIQUE: Single frontal view of the chest is obtained. FINDINGS: There is no significant interval change. IMPRESSION: Essentially stable findings. Interstitial lung disease, correlate for pneumonia. Postop changes, cardiomegaly.
[2020-12-27] MEDS: ENOXAPARIN 30 MG/0.3 ML SYRINGE SQ SCH (08:47)
[2020-12-27] MEDS: ZINC SULFATE 220 MG CAP PO SCH (08:47)
[2020-12-27] MEDS: ONDANSETRON 4 MG/2 ML VIAL IVP PRN (08:47)
[2020-12-27] MEDS: ASPIRIN 81 MG PO SCH (08:52)
[2020-12-27] MEDS: CHOLECALCIFEROL 25 MCG (1000 IU) TABLET PO SCH (08:52)
[2020-12-27] MEDS: AMOXIC-POT CLAV 500-125 MG 1 EACH TAB PO SCH (08:52)
[2020-12-27] MEDS: METOPROLOL TARTRATE 50 MG TAB PO SCH ×2 (08:52→19:49)
[2020-12-27] MEDS: FUROSEMIDE 20 MG TAB PO SCH (08:52)
[2020-12-27] MEDS: dexAMETHasone 2 MG TAB PO SCH (08:52)
[2020-12-27] MEDS: ASCORBIC ACID 500 MG TAB PO SCH (08:52)
--- NOTE | 2020-12-27 10:01 | FL ---
EXAMINATION TYPE: FL barium swallow w video DATE OF EXAM: 12/26/2020 MODIFIED SWALLOW / DEGLUTITION STUDY CLINICAL HISTORY: Dysphagia. TECHNIQUE: Deglutition study is performed utilizing thin liquid barium, honey and nectar thick liqui d barium, barium thick applesauce, and barium coated cracker. COMPARISON: None. Impression: Speech pathologist performed the study. The oral and pharyngeal phases show satisfactory initiation and propagation with all modalities tested. Normal mastication is seen with solid modalit ies tested. No gross evidence of aspiration. Please see speech pathologist note same date.
--- NOTE | 2020-12-27 10:02 | P.PN ---
Subjective Patient is seen in follow-up for acute kidney injury on chronic kidney disease. Creatinine 2.1 as of yesterday. Hemoglobin improved post blood transfusion given December 25. No active bleeding. No edema. Hemodynamically stable. Oral intake poor. Currently on 5 L nasal cannula. No changes overnight. Vital signs are stable. General: The patient appeared well nourished and normally developed. HEENT: On nasal cannula. LUNGS: Breath sounds decreased. HEART: Rate and Rhythm are regular. ABDOMEN: Soft, no distention. EXTREMITITES: No edema. Objective - Vital Signs Vital signs: Vital Signs Temp 97.9 F 12/27/20 08:57 Pulse 100 12/27/20 08:57 Resp 24 12/27/20 08:57 BP 130/81 12/27/20 08:57 Pulse Ox 93 L 12/27/20 08:57 Intake & Output 12/26/20 12/27/20 12/27/20 18:59 06:59 18:59 Intake Total 240 0 Output Total 300 300 Balance -300 -60 0 Weight 53 kg 53 kg Intake: Oral 240 0 Output: Urine 300 300 Other: Voiding Method Urinal Urinal # Voids 1 2 # Bowel Movements 1 1 - Labs CBC & Chem 7: 12/26/20 06:59 12/26/20 06:59 Labs: Abnormal Lab Results - Last 24 Hours (Table) 12/26/20 Range/Units 06:59 Procalcitonin 1.53 H (0.02-0.09) ng/mL Microbiology - Last 24 Hours (Table) 12/25/20 09:00 Gram Stain - Preliminary Sputum Sputum Culture - Preliminary Serratia marcescens Gram Neg Bacilli Assessment and Plan Plan: Assessment: 1. Acute kidney injury mostly prerenal secondary to infection/anemia. Creatinine 2.1 as of yesterday. No proteinuria on UA. No evidence of hydronephrosis noted on kidney ultrasound 2. Chronic kidney disease stage IIIB with baseline creatinine 1.5-2.3 earlier this year. Etiology is nephrosclerosis. 3. COVID-19 pneumonia with component of aspiration maintained on antibiotics. Sputum culture positive for gram-negative bacilli. 4. Anemia of chronic kidney disease. Status post IV iron. Maintained on Aranesp. also received blood transfusion this admission. 5. Chronic diastolic CHF with moderate mitral regurgitation, severe tricuspid regurgitation and pulmonary hypertension. Plan: Encourage oral intake. Maintain oral Lasix. Continue to monitor renal function and urine output. Repeat electrolytes in the morning.
--- NOTE | 2020-12-27 12:10 | P.PN ---
Subjective Progress Note Date: 12/27/20 COPD exacerbation, A. fib with RVR, pneumonia This is a pleasant 89-year-old gentleman who follows with Dr. Boss as his primary care provider. He has history of hypertension, CVA, coronary artery disease with previous coronary artery bypass grafting, COPD, seizure disorder, previous smoker, lung cancer. He presented to the emergency room yesterday with complaints of increasing shortness of breath, chest tightness and wheezing. He was found to be in atrial fibrillation with a rapid ventricular response. Chest x-ray revealed bilateral interstitial pneumonia. Cardiomegaly. Small right pleural effusion and pleural reaction at the right lung base. White count 17.4. Hemoglobin 9.1. Sodium 139. Potassium 5.4. Creatinine 3.75. Presenting creatinine was 5.09. Pro-calcitonin greater than 100. Troponin 0.105. C- reactive protein 58.6. Andres virus positive. He is seen today in consultation on the selective care unit. The patient is a poor historian. Unable to determine when his symptoms started. He is currently resting fairly comfortably in bed. Awake and alert in no acute distress. Maintaining O2 saturations in the high 90s on 3 L/m per nasal cannula. Afebrile. Slightly tachycardic. Ultrasound of the kidneys revealed no hydronephrosis or nephrolithiasis bilaterally. His initiated on a Cardizem drip at 10 mg per hour, heparin drip and antibiotics in the form of ceftriaxone and azithromycin. His initiated on Decadron 10 mg IV daily. Progress note dated 12/17/2020. 89-year-old black male, seen by our nurse practitioner yesterday in consultation. The patient has a history of hypertension, CVA, coronary disease, previous bypass grafting, COPD, seizure disorder, and lung cancer. The patient apparently presented to the emergency department with complaints of increasing shortness of breath, chest tightness, and wheezing. He was found to have atrial fibrillation with RVR, and also was positive for coronavirus infection. The patient seems be recently comfortable this time. He is on 3 L. Saturations are 97%. Heart rate 86. Respiratory rate 18. No audible wheezing, use of accessory muscles, or conversational dyspnea. The patient is not a particularly good historian. White count 15.8, hemoglobin 7.9, hematocrit 24.8, and platelet count 120,000. PTT is 37.8. Sodium 141, potassium 3.4, chlorides 104, CO2 25, anion gap 12, BUN 97, and creatinine 2.67. Initial lactic acid 2.2. Repeat lactic acid 1.1. Chest x-ray shows bilateral interstitial pneumonia with cardiomegaly. There is a small right-sided pleural effusion. Progress note dated 12/18/2020. 89-year-old black male, seen in consultation 2 days ago. I saw the patient yesterday in follow-up. The patient has a history of essential hypertension, CVA, coronary artery disease, previous bypass grafting, COPD, seizure disorder, and lung cancer. The patient presented to the emergency department with complaints of increasing shortness of breath, chest tightness and wheezing, and was found to have atrial fibrillation with RVR, and also tested positive for coronavirus infection. Currently, the patient appears to be relatively comfortable. He is on 3 L nasal cannula, and his saturations are 100%. Blood pressure 112/72, heart rate 89, respiratory rate 18, and his temperature is 97.8. Labs show a white count of 14.6, hemoglobin 7.8, hematocrit 25.6, and platelet count 121,000. D-dimer is 2.0. Sodium 141, potassium 3.8, chlorides 108, CO2 26, anion gap 7, BUN 76, creatinine 2.19. No recent chest x-ray to review. The patient is seen today 12/19/2020 in follow-up on the cardiac floor. He is currently resting comfortably in bed. Awake, alert and in no acute distress. He is maintaining O2 saturation in the 90s on 3 L/m per nasal cannula. Lactated Ringer's at 75 ML's per hour. He's been afebrile. Hemodynamically stable. Chest x-ray reveals evidence of congestive heart failure and underlying COPD. Chronic pleural reaction. Blood cultures reveal no growth. White count 12.4. Hemoccult was 7.7. Platelets 113. Sodium 141. Potassium 4.0. Creatinine 2.09. ProBNP 36,700. He remains on Decadron, Lovenox, vitamin supplements. Antibiotics in the form of Unasyn. The patient is seen today 12/20/2020 in follow-up on the selective care unit. He is currently resting comfortably in bed. Awake and alert in no acute distress. Rectal maintaining O2 saturations in the 90s on 3 L/m per nasal cannula. She's been afebrile. Hemodynamically stable. Blood cultures reveal no growth. No new labs today. He remains on Decadron, Lovenox, vitamin supplements. Antibiotics in the form of Unasyn. Lactated Ringer's at 75 ML's per hour. The patient is seen today 12/21/2020 in follow-up on the selective care unit. He has currently resting comfortably in bed. Awake and alert in no acute distress. He is on 2 L/m per nasal cannula. O2 saturation 98%. White count 17.0. Hemoglobin 8.9. Sodium 140. Potassium 3.7. Creatinine 1.92. He is continued on Unasyn. Remains on Decadron, Lovenox, vitamin supplements. Echocardiogram reveals moderate impaired left ventricular systolic function with ejection fraction 40-45%. Severe pulmonary hypertension. The patient is seen today 12/22/2020 in follow-up on the selective care unit. He is currently resting comfortably in bed. Maintaining O2 saturations in the 90s on 2 L/m per nasal cannula. Chest x-ray shows cardiomegaly with chronic parenchymal changes with right greater than left bilateral multifocal opacities and tiny bilateral pleural effusions. No change compared to previous. 0.9 normal saline @ 20 ML's per hour. He is continued on Decadron, Lovenox, vitamin supplements. Antibiotics in the form of Unasyn. Blood cultures reveal no growth. White count 18.5. Hemoglobin 8.8. Lymphocytes 0.4. Sodium 141. Potassium 3.9. Creatinine 1.82. The patient is seen today 12/23/2020 in follow-up on the selective care unit. He is awake and alert in no acute distress. Resting quite comfortably in bed. Maintaining O2 saturations in the 90s on 4 L/m per nasal cannula. No IV fluids. Pro-calcitonin down to 3.6. He remains on Unasyn. He remains on dexamethasone, Lovenox, vitamin supplements. Transitioned to oral diuretics. 12/24 2020, the patient is being seen for a follow-up. The patient remains on 4 L of H6cibba cannula to maintain a saturation above 90%. Is a case of COVID-19 related pneumonia with secondary story failure. His superinfection is also suspected knowing that the patient's pro-calcitonin level was elevated significantly. The most recent chest x-ray showing diffuse but the pulmonary infiltrates right more than left. The pro-calcitonin level is down to 3.6 from 12/22/2020. The white cell count of 18.5 with a hemoglobin of 8.9. Platelet count is stable at 178. The patient continues to have some lymphopenia. Creatinine is down to 1.8 with the rest of the electrodes being within normal limits. She remains on empiric antibiotic coverage with IV Unasyn initially and later on Augmentin. He is on Decadron 4 mg by mouth daily. He is on Lasix 20 mg by mouth daily and he is also on Lovenox 30 mg subcu for DVT prophylaxis. 12/25/2020, the patient is being seen for a follow-up. He is a case of COVID-19 infection/pneumonia with superinfection, possibly a pneumonia based on elevated calcitonin level. The chest x-ray was showing patchy bilateral infiltrates and cardiomegaly. This was the x-ray from yesterday. Based on this, the patient was kept on a combination of Decadron currently on 2 mg and the patient is also on a course of Augmentin 875 mg twice a day after being treated with IV Unasyn. This morning, the patient is on oxygen on 4 L with a pulse ox of 94%. Remains on Lovenox 30 mg subcu for DVT prophylaxis. With that was of 14.7. Hemoglobin dropped down to 6.8 with a platelet count of 172. Coagulation profile has been adequate from prior evaluations. His creatinine is up to 2.27 with a BUN of 62 and the patient had a follow-up pro-calcitonin level of 3.6. Stool for occult blood was also negative. Units of packed RBC has already been ordered for this patient. 12/26/2020, the patient essentially looks the same as yesterday and he remains on 5 L of oxygen by nasal cannula. His swallow mechanism has been suspected to be 4 and was suspected felt aspiration and for that reason we sent him for a swallow evaluation and the patient is having a modified barium swallow done today. He is a case of COVID-19 related pneumonia. His pro calcitonin level was elevated and is improving and is down to 1.53 also and we suspected superinfection and for that reason the patient was given antibiotics initially Zosyn and later on Augmentin. His chest x-ray from today is showing interstitial infiltrates bilaterally more so on the right where the right lung is essentially infiltrated in the left upper lobe was also infiltrated in the left lower lobe essentially spared. He is receiving Decadron at a dose of 2 mg by mouth daily. He is also on Lovenox and we had to stop it because of a drop in hemoglobin down to 6.8 and this can be essentially resumed as the patient has no evidence of bleeding. He received a unit of packed RBC and hemoglobin responded nicely and felt to 9.2. His creatinine is stable at 2.1 which is improved compared to yesterday. 12/27/2020 the patient remains on oxygen at 5 L which is essentially the same as yesterday. With suspected aspiration. With a bedside swallow evaluation following that the patient was given a modified barium swallow and the patient was found to have some oral and pharyngeal phases that were appropriate and there was appropriate for propagation up with material. There was normal mastication. No evidence of any aspiration. As such, the patient was cleared. At this point in time, the patient is still being treated for a combination of COVID-19 related pneumonia with a suspected superinfection. The patient remains on Augmentin leg grams twice a day. Sputum sample was sent and the patient sputum sample came back positive for gram-negative bacillus including sedation marcescens and this microorganism was resistant to Augmentin. The patient is also on Decadron 2 mg by mouth daily and the patient is also taking Lovenox 30 mg subcu on a daily basis. Chest x-ray findings and essentially unchanged the patient has diffuse interstitial infiltrates bilaterally more so on the right compared to the left. His d-dimer is at 4.22. Creatinine is stable at 2.1 . He continues to have some congested cough. His pro calcitonin level has dropped down to 1.53. As stated, chest x-ray findings are essentially unchanged and stable. He remains quite debilitated at this point in time. He passed a swallow evaluation. Objective - Vital Signs Vital signs: Vital Signs Temp 97.9 F 12/27/20 08:57 Pulse 100 12/27/20 08:57 Resp 24 12/27/20 08:57 BP 130/81 12/27/20 08:57 Pulse Ox 93 L 12/27/20 08:57 Intake & Output 12/26/20 12/27/20 12/27/20 18:59 06:59 18:59 Intake Total 240 0 Output Total 300 300 175 Balance -300 -60 -175 Weight 53 kg 53 kg Intake: Oral 240 0 Output: Urine 300 300 175 Other: Voiding Method Urinal Urinal # Voids 1 2 1 # Bowel Movements 1 1 - Exam No acute distress, pleasant 89-year-old gentleman, poor historian, currently on 5 L nasal cannula, with saturations at 95%. No obvious respiratory distress. He looks quite lethargic and he looks significantly debilitated at this point in time. He is laying down on his right side. Doesn't do a lot of activity. Does communicate HEENT examination is grossly unremarkable. Neck supple. Full range of motion. No adenopathy thyromegaly or neck vein distention. Cardiovascular examination reveals regular rhythm rate. S1-S2 normal. No S3 or S4. No discernible murmur noted. Heart rate 105 bpm. Lungs reveal scattered rhonchi and crackles. Breath sounds equal bilaterally. He is not taking deep breaths. No distinct wheezes noted. Abdomen soft bowel sounds are heard. No masses or tenderness. Extremities are intact. No cyanosis clubbing or edema. Skin is without rash or lesion. Neurologic examination is brief but nonfocal. - Labs CBC & Chem 7: 12/26/20 06:59 12/26/20 06:59 Labs: Abnormal Lab Results - Last 24 Hours (Table) 12/26/20 Range/Units 06:59 Procalcitonin 1.53 H (0.02-0.09) ng/mL Microbiology - Last 24 Hours (Table) 12/25/20 09:00 Gram Stain - Preliminary Sputum Sputum Culture - Preliminary Serratia marcescens Gram Neg Bacilli Assessment and Plan Plan: 1 Acute hypoxemic respiratory failure secondary to acute COVID-19 pneumonia, cannot rule out underlying bacterial pneumonia. Currently Decadron and the patient is also taking an oral Augmentin after being on Unasyn for a few days. Pro-calcitonin level has declined down to 1.3. Leukocytosis is present . Chest x-ray showing diffuse but the pulmonary infiltrates right more than left consistent more so with COVID-19 related pneumonia. Overall pulmonary status is stable. The patient is on Decadron. Remains on Augmentin. The repeat chest x- ray still showing evidence of pulmonary infiltrates more so on the right compared to the left. The findings are essentially stable. Nevertheless, the sputum sample came back positive for Serratia marcescens in addition to gram- negative bacillus and this was resistant to Augmentin. It was sensitive to Zosyn. 2 Leukocytosis, pro-calcitonin greater than 100 secondary to above, currently down to 1.53 3 Acute exacerbation of systolic congestive heart failure 4 Acute renal failure with a history of chronic renal failure secondary to nephrosclerosis, creatinine 2.1 5 Atrial fibrillation with a rapid ventricular response, currently atrial tachycardia, on beta blockers 6 Recent CVA 7 Troponin leak 8 Coronary artery disease with previous history of coronary artery bypass grafting 9 Chronic obstructive pulmonary disease 10 Remote history of lung cancer, details of which are unclear 11 Former smoker 12 acute drop in hemoglobin down to 6.8 without evidence of any bleeding. Acute anemia. Patient received 1 unit of packed RBC. His Hb is up to 9.2. This level is from yesterday and no further bouts of GI bleed and the repeat hemoglobin has not been obtained. Plan: stable with FiO2 to maintain saturation above 90% currently on 4 L -5 L per minute nasal cannula Stop the Augmentin is was this patient to Levaquin 500 grams daily basis Chest x-ray findings are stable Oxygenation is stable Hemoglobin is stable and there is no further bouts of GI bleed Continue Decadron Monitor renal function Monitor mental status Remains on Decadron, Lovenox, vitamin supplements The patient passed a swallow evaluation He remains extremely debilitated and obviously carries a poor prognosis. Labs will be repeated from today We will continue to follow
[2020-12-27] MEDS ORDERED: LEVOFLOXACIN 500 MG TAB PO ONE (12:15)
[2020-12-27] MEDS ORDERED: CEFEPIME 2 GM in SODIUM CHLORIDE 0.9% 100 ML IVPB SCH (14:00)
[2020-12-27] MEDS: CEFEPIME 1 GM in SODIUM CHLORIDE 0.9% 50 ML IVPB SCH ×2 (16:14→19:52)
[2020-12-27] MEDS: MEGESTROL 400 MG/10 ML CUP PO SCH (19:50)
--- NOTE | 2020-12-27 23:28 | PN ---
PROGRESS NOTE DATE OF SERVICE: 12/27/2020 REASON FOR FOLLOWUP: Gram-negative pneumonia. INTERVAL HISTORY: The patient is currently afebrile. The patient is breathing slightly comfortably. The patient denies having any chest pain. Did have a cough, not bringing up any sputum. No vomiting. No abdominal pain or diarrhea. PHYSICAL EXAMINATION: Blood pressure is 121/68 with a pulse of 103, temperature of 97.3. He is 94% on 5 L nasal cannula. General description is an elderly male lying in bed in no distress. RESPIRATORY SYSTEM: Unlabored breathing with decreased breath sounds at the base. No wheeze. HEART: S1, S2. Regular rate and rhythm. ABDOMEN: Soft. No tenderness. LABS: Hemoglobin 9.2, white count 17.4. BUN of 62, creatinine is 2.10. Sputum is showing Serratia marcescens. DIAGNOSTIC IMPRESSION AND PLAN: Patient with a Gram-negative pneumonia with Serratia marcescens. Antibiotic will be adjusted to cefepime. Directed against this pathogen and clinical course will be monitored closely. MMODL / IJN: [id number] / MTDD
[2020-12-28] MEDS: ONDANSETRON 4 MG/2 ML VIAL IVP PRN ×3 (05:12→20:51)
--- NOTE | 2020-12-28 07:30 | XR ---
EXAMINATION TYPE: XR chest 1V portable DATE OF EXAM: 12/28/2020 COMPARISON: Chest x-ray 12/27/2020 HISTORY: Pneumonia TECHNIQUE: Single frontal view of the chest is obtained. FINDINGS: Patient is rotated. Median sternotomy. Heart remains enlarged. Interstitium remains increa sed, there is no evident pneumothorax or pleural effusion. Patchy airspace disease is again seen bila terally. Aorta is dense. IMPRESSION: Correlate for pneumonia, interstitial edema. There is cardiomegaly.
[2020-12-28 07:58] LABS: Albumin 2.7 g/dL (3.5-5.0); Calcium 8.3 mg/dL (8.4-10.2); Magnesium 1.9 mg/dL (1.6-2.3); Potassium 3.6 mmol/L (3.5-5.1); Total Bilirubin 0.6 mg/dL (0.2-1.3); Total Protein 5.7 g/dL (6.3-8.2)
[2020-12-28] MEDS: MEGESTROL 400 MG/10 ML CUP PO SCH ×2 (08:00→21:04)
[2020-12-28] MEDS: ENOXAPARIN 30 MG/0.3 ML SYRINGE SQ SCH (08:00)
[2020-12-28] MEDS: dexAMETHasone 2 MG TAB PO SCH (08:00)
[2020-12-28] MEDS: METOPROLOL TARTRATE 50 MG TAB PO SCH ×2 (08:00→20:39)
[2020-12-28] MEDS: ASCORBIC ACID 500 MG TAB PO SCH (08:00)
[2020-12-28] MEDS: CEFEPIME 1 GM in SODIUM CHLORIDE 0.9% 50 ML IVPB SCH ×2 (08:00→20:39)
[2020-12-28] MEDS: FUROSEMIDE 20 MG TAB PO SCH (08:01)
[2020-12-28] MEDS: CHOLECALCIFEROL 25 MCG (1000 IU) TABLET PO SCH (08:01)
[2020-12-28] MEDS: ASPIRIN 81 MG PO SCH (08:01)
[2020-12-28] MEDS: ZINC SULFATE 220 MG CAP PO SCH (08:01)
[2020-12-28 08:19] LABS: Anisocytosis Slight; HCT 26.7 % (39.0-53.0); HGB 8.7 gm/dL (13.0-17.5); Hypochromasia Moderate; MCH 29.7 pg (25.0-35.0); MCHC 32.6 g/dL (31.0-37.0); MCV 91.3 fL (80.0-100.0); Macrocytosis Slight; Mean Platelet Volume 8.7; Platelet Count 166 k/uL (150-450); Poikilocytosis Slight; RBC 2.93 m/uL (4.30-5.90); RDW 19.7 % (11.5-15.5)
[2020-12-28] MEDS ORDERED: POTASSIUM CHLORIDE ER 20 MEQ TAB.ER PO STA (10:06)
--- NOTE | 2020-12-28 10:07 | P.PN ---
Subjective Patient is seen in follow-up for acute kidney injury on chronic kidney disease. Renal function stable. Hemoglobin improved post blood transfusion given December 25. No active bleeding. No edema. Hemodynamically stable. Oral intake poor. Currently on 5 L nasal cannula. Weak. Vital signs are stable. General: The patient appeared well nourished and normally developed. HEENT: On nasal cannula. LUNGS: Breath sounds decreased. HEART: Rate and Rhythm are regular. ABDOMEN: Soft, no distention. EXTREMITITES: No edema. Objective - Vital Signs Vital signs: Vital Signs Temp 98.4 F 12/28/20 08:00 Pulse 103 H 12/28/20 08:00 Resp 26 H 12/28/20 08:00 BP 119/57 12/28/20 08:00 Pulse Ox 92 L 12/28/20 08:00 Intake & Output 12/27/20 12/28/20 12/28/20 18:59 06:59 18:59 Intake Total 287 170 Output Total 625 200 Balance -338 -30 Weight 52.5 kg Intake: Intake, IV Titration 50 50 Amount Cefepime 1 gm In Sodium 50 50 Chloride 0.9% 50 ml @ 12. 5 mls/hr IVPB Q12HR YAHIR Rx#:[id number] Oral 237 120 Output: Urine 625 200 Other: Voiding Method Urinal Urinal # Voids 3 - Labs CBC & Chem 7: 12/28/20 06:57 12/28/20 06:57 Labs: Abnormal Lab Results - Last 24 Hours (Table) 12/28/20 12/28/20 12/28/20 Range/Units 06:57 06:57 06:57 WBC 16.6 H (3.8-10.6) k/uL RBC 2.93 L (4.30-5.90) m/uL Hgb 8.7 L (13.0-17.5) gm/dL Hct 26.7 L (39.0-53.0) % RDW 19.7 H (11.5-15.5) % D-Dimer 5.88 H (<0.60) mg/L FEU Chloride 114 H (98-107) mmol/L BUN 58 H (9-20) mg/dL Creatinine 2.04 H (0.66-1.25) mg/dL Glucose 105 H (74-99) mg/dL Calcium 8.3 L (8.4-10.2) mg/dL Lactate Dehydrogenase 1259 H (313-618) U/L Total Protein 5.7 L (6.3-8.2) g/dL Albumin 2.7 L (3.5-5.0) g/dL Microbiology - Last 24 Hours (Table) 12/25/20 09:00 Gram Stain - Preliminary Sputum Sputum Culture - Preliminary Serratia marcescens Gram Neg Bacilli Assessment and Plan Plan: Assessment: 1. Acute kidney injury mostly prerenal secondary to infection/anemia. Creatinine 2.04. No proteinuria on UA. No evidence of hydronephrosis noted on kidney ultrasound 2. Chronic kidney disease stage IIIB with baseline creatinine 1.5-2.3 earlier this year. Etiology is nephrosclerosis. 3. COVID-19 pneumonia with component of aspiration maintained on antibiotics. Sputum culture positive for gram-negative bacilli/serratia. 4. Anemia of chronic kidney disease. Status post IV iron. Maintained on Aranesp. Also received blood transfusion this admission. 5. Chronic diastolic CHF with moderate mitral regurgitation, severe tricuspid regurgitation and pulmonary hypertension. 6. Hypokalemia from diuresis. Plan: Encourage oral intake. Maintain oral Lasix. Continue to monitor renal function and urine output. Replace potassium.
[2020-12-28 10:59] LABS: Band Neutrophils % 1 %; Lymphocytes # (M) 0.66 k/uL (1.0-4.8); Myelocytes % 1 %; Neutrophils % (M) 89 %; Nucleated Red Blood Cells 1 /100 WBC (0-0); Total Cells Counted 200
[2020-12-28 11:00] LABS: Basophils # (M) 0.16 k/uL (0-0.2); Monocytes # (M) 0.98 k/uL (0-1.0); Myelocytes # (M) 0.16 k/uL (0); Polychromasia Present; WBC 16.4 k/uL (3.8-10.6)
[2020-12-28] MEDS ORDERED: LEVOFLOXACIN 250 MG TAB PO SCH (13:00)
--- NOTE | 2020-12-28 13:37 | P.PN ---
Subjective Progress Note Date: 12/27/20 Fitz Blue, is an 89 year old male who presented to [facility] emergency room with a chief complaint of worsening shortness of breath, patient stated that he started having shortness of breath on the day of presentation that progressed to significant breathing difficulty EMS were sushma smith, they found patient to be in significant respiratory distress he was started on nonrebreather mask and was treated with IV Solu-Medrol and DuoNeb updrafts and was brought in to [facility] emergency room. In the emergency room patient was evaluated, his vital examination on presentation revealed a temperature of 98.6 pulse 142 respiration 18 blood pressure 99/78 pulse ox 94% on room air, laboratory data on presentation revealed a white blood count of 13.5 hemoglobin 10.5 platelet count 134 d-dimer 3.88, sodium 140 potassium 5.3 chloride 106 CO2 16 BUN 19 9 creatinine 5.09 glucose level was 136 plasma lactic acid was 3.5 troponin level was elevated at 0.105 C-reactive p rotein 58.6 Procalcitonin more than 100 and coronavirus PCR was positive. Chest x-ray was done in the emergency room and revealed bilateral interstitial pneumonia, cardiomegaly, small right pleural effusion and pleural reaction , EKG was done in the emergency room and revealed atrial fibrillation with rapid ventricular response and nonspecific ST abnormality . Patient was admitted to telemetry floor for further evaluation and treatment. Patient was admitted to [facility] in August 2020 after having a stroke, he was discharged to [facility] on the [facility] for rehabilit ation and was discharged home about 6 weeks ago. His past medical history is also significant for hypertension, hyperlipidemia, coronary artery disease with history of coronary artery bypass graft surgery, history of COPD, history of pulmonary hypertension, history of multiple lumbar compression vertebral fractures, history of anemia, history of carotid stenosis, history of osteoarthritis, and history of protein calorie malnutrition. On 12/17/2020 patient was seen and examined on the medical floor he is alert and oriented 3 in no apparent distress he is complaining of nausea otherwise he de nies any complaints there is no fever or chills no headache or dizziness no chest pain no shortness of breath no cough no vomiting no abdominal pain no diarrhea no blood in the stools no burning with urination no frequency or urgency and no hematuria. Kidney function has improved significantly since yesterday, otherwise no change in condition. On 12/18/2020 patient was seen and examined on the medical floor he is alert and oriented 3 in no apparent distress he is complaining of nausea otherwise he denies any complaints there is no fever or chills no headache or dizziness no chest pain , he has some shortness of breath no cough no vomiting no abdominal pain no diarrhea no blood in the stools no burning with urination no frequency or urgency and no hematuria. Kidney function has improved significantly since yesterday, otherwise no change in condition. On 12/19/2020 patient was seen and examined on the medical floor he is alert and oriented 3 in no apparent distress he is complaining of nausea otherwise he denies any complaints there is no fever or chills no headache or dizziness no chest pain , he has some shortness of breath no cough no vomiting no abdominal pain no diarrhea no blood in the stools no burning with urination no frequency or urgency and no hematuria. Kidney function has improved significantly since yesterday, otherwise no change in condition. BNP is significantly elevated, patient still having shortness of breath, will check Echocardiogram and consult cardiology. On 12/20/2020 patient was seen and examined on the medical floor he is alert and oriented 3 in no apparent distress he is complaining of nausea otherwise he denies any complaints there is no fever or chills no headache or dizziness no chest pain , he has some shortness of breath no cough no vomiting no abdominal pain no diarrhea no blood in the stools no burning with urination no frequency or urgency and no hematuria. Kidney function has improved significantly since yesterday, otherwise no change in condition. BNP is significantly elevated, patient still having shortness of breath, will check Echocardiogram and consult cardiology. patient was started on IV lasix, awaiting Echo. On 12/21/2020 patient was seen and examined on the medical floor he is alert and oriented 3 in no apparent distress he is complaining of nausea otherwise he denies any complaints there is no fever or chills no headache or dizziness no chest pain , he has some shortness of breath no cough no vomiting no abdominal pain no diarrhea no blood in the stools no burning with urination no frequency or urgency and no hematuria. Kidney function has improved significantly since yesterday, otherwise no change in condition. BNP is significantly elevated, patient still having shortness of breath, will check Echocardiogram and consult cardiology. patient was started on IV lasix, repeat CXR ordered for tomorrow. On 12/22/2020 patient was seen and examined on the medical floor he is alert and oriented 3 in no apparent distress he is complaining of nausea otherwise he denies any complaints there is no fever or chills no headache or dizziness no chest pain , he has some shortness of breath no cough no vomiting no abdominal pain no diarrhea no blood in the stools no burning with urination no frequency or urgency and no hematuria. Kidney function has improved significantly since yesterday, otherwise no change in condition. BNP is significantly elevated, patient still having shortness of breath, will check Echocardiogram and consult cardiology. patient was started on IV lasix, repeat CXR ordered for tomorrow. at this time will switch to oral lasix and oral Decadron continue to monitor, possi ble discharge in the next 1-2 days. On 12/23/2020 Patient was seen and examined on the medical floor, he is alert and oriented x 3 in no distress, he denies any complaints there is no fever or chills no headache or dizziness no chest pain no shortness of breath no palpitation no cough no nausea or vomiting no abdominal pain no diarrhea no blood in the stools no burning with urination no frequency or urgency and no hematuria, there is no weakness or numbness in any of the extremities no change in vision speech or gait. White blood count is still significantly elevated pro calcitonin is elevated chest x-rays revealing some worsening infectious disease following awaiting further recommendation will continue to monitor On 12/24/2020 Patient was seen and examined on the medical floor, he is alert and oriented x 3 in no distress, he denies any complaints there is no fever or chills no headache or dizziness no chest pain no shortness of breath no palpitation no cough no nausea or vomiting no abdominal pain no diarrhea no blood in the stools no burning with urination no frequency or urgency and no hematuria, there is no weakness or numbness in any of the extremities no change in vision speech or gait. White blood count is still significantly elevated pro calcitonin is elevated chest x-rays revealing some worsening opacities, infectious disease following awaiting further recommendation will continue to monitor, today Will decrease dose of Decadron and continue to monitor On 12/25/2020 Patient was seen and examined on the medical floor, he is alert and oriented x 3 in no distress, he denies any complaints there is no fever or chills no headache or dizziness no chest pain no shortness of breath no palpitation no cough no nausea or vomiting no abdominal pain no diarrhea no blood in the stools no burning with urination no frequency or urgency and no hematuria, there is no weakness or numbness in any of the extremities no change in vision speech or gait. Hemoglobin is down to 6.8 today 1 unit of red blood cell transfusion was ordered will follow closely On 12/27/2020 Patient was seen and examined on the medical floor, he is alert and oriented x 3 in no distress, he has very poor oral intake he denies any complaints there is no fever or chills no headache or dizziness no chest pain no shortness of breath no palpitation no cough no nausea or vomiting no abdominal pain no diarrhea no blood in the stools no burning with urination no frequency or urgency and no hematuria, there is no weakness or numbness in any of the extremities no change in vision speech or gait. Nutrition are recommending appetite stimulant patient will be started on Megace Objective - Vital Signs Vital signs: Vital Signs Temp 97.9 F 12/27/20 08:57 Pulse 100 12/27/20 08:57 Resp 24 12/27/20 08:57 BP 130/81 12/27/20 08:57 Pulse Ox 93 L 12/27/20 08:57 Intake & Output 12/26/20 12/27/20 12/27/20 18:59 06:59 18:59 Intake Total 240 0 Output Total 300 300 Balance -300 -60 0 Weight 53 kg 53 kg Intake: Oral 240 0 Output: Urine 300 300 Other: Voiding Method Urinal Urinal # Voids 1 2 # Bowel Movements 1 1 - Exam In general patient is alert and oriented x3 in no distress HEENT head normocephalic and atraumatic Neck is supple no JVD no goiter no lymphadenopathy no carotid bruit Chest examination is clear to auscultation no crackles no wheezing Cardiac exam reveals regular heart sounds S1 and S2 no gallops no murmurs Abdomen is soft nontender no organomegaly with normal bowel sounds Extremity exam reveals no edema no cyanosis or clubbing Neurological examination reveals no gross focal deficits - Labs CBC & Chem 7: 12/28/20 06:57 12/28/20 06:57 Labs: Abnormal Lab Results - Last 24 Hours (Table) 12/26/20 Range/Units 06:59 Procalcitonin 1.53 H (0.02-0.09) ng/mL Microbiology - Last 24 Hours (Table) 12/25/20 09:00 Gram Stain - Preliminary Sputum Sputum Culture - Preliminary Serratia marcescens Gram Neg Bacilli Assessment and Plan Plan: 1. COVID-19 infection 2. Bilateral interstitial pneumonia, possibly related to COVID-19, however bacterial superimposed infection cannot be ruled out 3. Evidence of sepsis, with leukocytosis, hypotension, and elevated lactic acid 4. Acute on chronic renal failure, creatinine on admission in August was 1.5 nephrology consultation requested 5. Severe hyperkalemia 6. Underlying history of COPD 7. Recent history of stroke in August 2020 8. Underlying history of hypertension 9. Underlying history of hyperlipidemia 10. Underlying history of coronary artery disease with previous history of coronary artery bypass graft surgery 11. Underlying history of multiple lumbar compression vertebral fractures. 12. Previous history of anemia and history of GI bleed, Hgb down to 7.7 will consult GI At this time patient is admitted to telemetry floor He received IV fluid boluses He was started on IV heparin and IV Cardizem drip He was started on IV antibiotic Rocephin and Zithromax He was started on steroids prednisone 40 mg daily Pulmonary, nephrology, infectious disease and cardiology consultation requested. Prognosis is poor due to advanced age, severity of illness, and multiple underlying medical conditions
--- NOTE | 2020-12-28 13:59 | P.PN ---
Subjective Progress Note Date: 12/28/20 COPD exacerbation, A. fib with RVR, pneumonia This is a pleasant 89-year-old gentleman who follows with Dr. Boss as his primary care provider. He has history of hypertension, CVA, coronary artery disease with previous coronary artery bypass grafting, COPD, seizure disorder, previous smoker, lung cancer. He presented to the emergency room yesterday with complaints of increasing shortness of breath, chest tightness and wheezing. He was found to be in atrial fibrillation with a rapid ventricular response. Chest x-ray revealed bilateral interstitial pneumonia. Cardiomegaly. Small right pleural effusion and pleural reaction at the right lung base. White count 17.4. Hemoglobin 9.1. Sodium 139. Potassium 5.4. Creatinine 3.75. Presenting creatinine was 5.09. Pro-calcitonin greater than 100. Troponin 0.105. C- reactive protein 58.6. Andres virus positive. He is seen today in consultation on the selective care unit. The patient is a poor historian. Unable to determine when his symptoms started. He is currently resting fairly comfortably in bed. Awake and alert in no acute distress. Maintaining O2 saturations in the high 90s on 3 L/m per nasal cannula. Afebrile. Slightly tachycardic. Ultrasound of the kidneys revealed no hydronephrosis or nephrolithiasis bilaterally. His initiated on a Cardizem drip at 10 mg per hour, heparin drip and antibiotics in the form of ceftriaxone and azithromycin. His initiated on Decadron 10 mg IV daily. Progress note dated 12/17/2020. 89-year-old black male, seen by our nurse practitioner yesterday in consultation. The patient has a history of hypertension, CVA, coronary disease, previous bypass grafting, COPD, seizure disorder, and lung cancer. The patient apparently presented to the emergency department with complaints of increasing shortness of breath, chest tightness, and wheezing. He was found to have atrial fibrillation with RVR, and also was positive for coronavirus infection. The patient seems be recently comfortable this time. He is on 3 L. Saturations are 97%. Heart rate 86. Respiratory rate 18. No audible wheezing, use of accessory muscles, or conversational dyspnea. The patient is not a particularly good historian. White count 15.8, hemoglobin 7.9, hematocrit 24.8, and platelet count 120,000. PTT is 37.8. Sodium 141, potassium 3.4, chlorides 104, CO2 25, anion gap 12, BUN 97, and creatinine 2.67. Initial lactic acid 2.2. Repeat lactic acid 1.1. Chest x-ray shows bilateral interstitial pneumonia with cardiomegaly. There is a small right-sided pleural effusion. Progress note dated 12/18/2020. 89-year-old black male, seen in consultation 2 days ago. I saw the patient yesterday in follow-up. The patient has a history of essential hypertension, CVA, coronary artery disease, previous bypass grafting, COPD, seizure disorder, and lung cancer. The patient presented to the emergency department with complaints of increasing shortness of breath, chest tightness and wheezing, and was found to have atrial fibrillation with RVR, and also tested positive for coronavirus infection. Currently, the patient appears to be relatively comfortable. He is on 3 L nasal cannula, and his saturations are 100%. Blood pressure 112/72, heart rate 89, respiratory rate 18, and his temperature is 97.8. Labs show a white count of 14.6, hemoglobin 7.8, hematocrit 25.6, and platelet count 121,000. D-dimer is 2.0. Sodium 141, potassium 3.8, chlorides 108, CO2 26, anion gap 7, BUN 76, creatinine 2.19. No recent chest x-ray to review. The patient is seen today 12/19/2020 in follow-up on the cardiac floor. He is currently resting comfortably in bed. Awake, alert and in no acute distress. He is maintaining O2 saturation in the 90s on 3 L/m per nasal cannula. Lactated Ringer's at 75 ML's per hour. He's been afebrile. Hemodynamically stable. Chest x-ray reveals evidence of congestive heart failure and underlying COPD. Chronic pleural reaction. Blood cultures reveal no growth. White count 12.4. Hemoccult was 7.7. Platelets 113. Sodium 141. Potassium 4.0. Creatinine 2.09. ProBNP 36,700. He remains on Decadron, Lovenox, vitamin supplements. Antibiotics in the form of Unasyn. The patient is seen today 12/20/2020 in follow-up on the selective care unit. He is currently resting comfortably in bed. Awake and alert in no acute distress. Rectal maintaining O2 saturations in the 90s on 3 L/m per nasal cannula. She's been afebrile. Hemodynamically stable. Blood cultures reveal no growth. No new labs today. He remains on Decadron, Lovenox, vitamin supplements. Antibiotics in the form of Unasyn. Lactated Ringer's at 75 ML's per hour. The patient is seen today 12/21/2020 in follow-up on the selective care unit. He has currently resting comfortably in bed. Awake and alert in no acute distress. He is on 2 L/m per nasal cannula. O2 saturation 98%. White count 17.0. Hemoglobin 8.9. Sodium 140. Potassium 3.7. Creatinine 1.92. He is continued on Unasyn. Remains on Decadron, Lovenox, vitamin supplements. Echocardiogram reveals moderate impaired left ventricular systolic function with ejection fraction 40-45%. Severe pulmonary hypertension. The patient is seen today 12/22/2020 in follow-up on the selective care unit. He is currently resting comfortably in bed. Maintaining O2 saturations in the 90s on 2 L/m per nasal cannula. Chest x-ray shows cardiomegaly with chronic parenchymal changes with right greater than left bilateral multifocal opacities and tiny bilateral pleural effusions. No change compared to previous. 0.9 normal saline @ 20 ML's per hour. He is continued on Decadron, Lovenox, vitamin supplements. Antibiotics in the form of Unasyn. Blood cultures reveal no growth. White count 18.5. Hemoglobin 8.8. Lymphocytes 0.4. Sodium 141. Potassium 3.9. Creatinine 1.82. The patient is seen today 12/23/2020 in follow-up on the selective care unit. He is awake and alert in no acute distress. Resting quite comfortably in bed. Maintaining O2 saturations in the 90s on 4 L/m per nasal cannula. No IV fluids. Pro-calcitonin down to 3.6. He remains on Unasyn. He remains on dexamethasone, Lovenox, vitamin supplements. Transitioned to oral diuretics. 12/24 2020, the patient is being seen for a follow-up. The patient remains on 4 L of A2vrijt cannula to maintain a saturation above 90%. Is a case of COVID-19 related pneumonia with secondary story failure. His superinfection is also suspected knowing that the patient's pro-calcitonin level was elevated significantly. The most recent chest x-ray showing diffuse but the pulmonary infiltrates right more than left. The pro-calcitonin level is down to 3.6 from 12/22/2020. The white cell count of 18.5 with a hemoglobin of 8.9. Platelet count is stable at 178. The patient continues to have some lymphopenia. Creatinine is down to 1.8 with the rest of the electrodes being within normal limits. She remains on empiric antibiotic coverage with IV Unasyn initially and later on Augmentin. He is on Decadron 4 mg by mouth daily. He is on Lasix 20 mg by mouth daily and he is also on Lovenox 30 mg subcu for DVT prophylaxis. 12/25/2020, the patient is being seen for a follow-up. He is a case of COVID-19 infection/pneumonia with superinfection, possibly a pneumonia based on elevated calcitonin level. The chest x-ray was showing patchy bilateral infiltrates and cardiomegaly. This was the x-ray from yesterday. Based on this, the patient was kept on a combination of Decadron currently on 2 mg and the patient is also on a course of Augmentin 875 mg twice a day after being treated with IV Unasyn. This morning, the patient is on oxygen on 4 L with a pulse ox of 94%. Remains on Lovenox 30 mg subcu for DVT prophylaxis. With that was of 14.7. Hemoglobin dropped down to 6.8 with a platelet count of 172. Coagulation profile has been adequate from prior evaluations. His creatinine is up to 2.27 with a BUN of 62 and the patient had a follow-up pro-calcitonin level of 3.6. Stool for occult blood was also negative. Units of packed RBC has already been ordered for this patient. 12/26/2020, the patient essentially looks the same as yesterday and he remains on 5 L of oxygen by nasal cannula. His swallow mechanism has been suspected to be 4 and was suspected felt aspiration and for that reason we sent him for a swallow evaluation and the patient is having a modified barium swallow done today. He is a case of COVID-19 related pneumonia. His pro calcitonin level was elevated and is improving and is down to 1.53 also and we suspected superinfection and for that reason the patient was given antibiotics initially Zosyn and later on Augmentin. His chest x-ray from today is showing interstitial infiltrates bilaterally more so on the right where the right lung is essentially infiltrated in the left upper lobe was also infiltrated in the left lower lobe essentially spared. He is receiving Decadron at a dose of 2 mg by mouth daily. He is also on Lovenox and we had to stop it because of a drop in hemoglobin down to 6.8 and this can be essentially resumed as the patient has no evidence of bleeding. He received a unit of packed RBC and hemoglobin responded nicely and felt to 9.2. His creatinine is stable at 2.1 which is improved compared to yesterday. 12/27/2020 the patient remains on oxygen at 5 L which is essentially the same as yesterday. With suspected aspiration. With a bedside swallow evaluation following that the patient was given a modified barium swallow and the patient was found to have some oral and pharyngeal phases that were appropriate and there was appropriate for propagation up with material. There was normal mastication. No evidence of any aspiration. As such, the patient was cleared. At this point in time, the patient is still being treated for a combination of COVID-19 related pneumonia with a suspected superinfection. The patient remains on Augmentin leg grams twice a day. Sputum sample was sent and the patient sputum sample came back positive for gram-negative bacillus including sedation marcescens and this microorganism was resistant to Augmentin. The patient is also on Decadron 2 mg by mouth daily and the patient is also taking Lovenox 30 mg subcu on a daily basis. Chest x-ray findings and essentially unchanged the patient has diffuse interstitial infiltrates bilaterally more so on the right compared to the left. His d-dimer is at 4.22. Creatinine is stable at 2.1 . He continues to have some congested cough. His pro calcitonin level has dropped down to 1.53. As stated, chest x-ray findings are essentially unchanged and stable. He remains quite debilitated at this point in time. He passed a swallow evaluation. 12/28/2020, the patient is being seen for a follow-up. He remains on 5 L of oxygen by nasal cannula. His chest x-ray was showing diffuse pulmonary infiltrates most on the right compared to the left. Noted is a case of COVID-19 related pneumonia in his sputum also showed Serratia and subsequent culture showed Pseudomonas. Both of them are sensitive to Levaquin. Nevertheless, due to presence of pseudomonas, would like to cover this patient with a broader spectrum antibiotics with IV cefepime. Otherwise, the patient is essentially t he same as yesterday. White cell count is elevated with a white cell count of 16. Hemoglobin stable at 8.7 and the patient has not had any further episodes of GI bleeds. His creatinine is also stable at 2.04 with a BUN of 58 and the patient's serum bicarb is 22. Electrodes are normal. His d-dimer is at 5.88. LDH level is at 1259 which is slightly improved compared to earlier studies. He is weak. His debilitated. Oral intake is quite diminished. He has a congested cough. Heart is using his incentive spirometer. He did pass a swallow evaluation. He remains on Decadron. He remains on Lovenox 30 mg subcutaneous for DVT prophylaxis. This was restarted yesterday. Objective - Vital Signs Vital signs: Vital Signs Temp 98.6 F 12/28/20 12:00 Pulse 96 12/28/20 12:00 Resp 24 12/28/20 12:09 BP 102/65 12/28/20 12:00 Pulse Ox 93 L 12/28/20 12:00 Intake & Output 12/27/20 12/28/20 12/28/20 18:59 06:59 18:59 Intake Total 287 170 Output Total 625 200 Balance -338 -30 Weight 52.5 kg 52.5 kg Intake: Intake, IV Titration 50 50 Amount Cefepime 1 gm In Sodium 50 50 Chloride 0.9% 50 ml @ 12. 5 mls/hr IVPB Q12HR [facility] Rx#:[id number] Oral 237 120 Output: Urine 625 200 Other: Voiding Method Urinal Urinal # Voids 3 - Exam No acute distress, pleasant 89-year-old gentleman, poor historian, currently on 5 L nasal cannula, with saturations at 95%. No obvious respiratory distress. He looks quite lethargic and he looks significantly debilitated at this point in time. He is laying down on his right side. Doesn't do a lot of activity. Does communicate HEENT examination is grossly unremarkable. Neck supple. Full range of motion. No adenopathy thyromegaly or neck vein distention. Cardiovascular examination reveals regular rhythm rate. S1-S2 normal. No S3 or S4. No discernible murmur noted. Heart rate 105 bpm. Lungs reveal scattered rhonchi and crackles. Breath sounds equal bilaterally. He is not taking deep breaths. No distinct wheezes noted. Abdomen soft bowel sounds are heard. No masses or tenderness. Extremities are intact. No cyanosis clubbing or edema. Skin is without rash or lesion. Neurologic examination is brief but nonfocal. - Labs CBC & Chem 7: 12/28/20 06:57 12/28/20 06:57 Labs: Abnormal Lab Results - Last 24 Hours (Table) 12/28/20 12/28/20 12/28/20 Range/Units 06:57 06:57 06:57 WBC 16.4 H (3.8-10.6) k/uL RBC 2.93 L (4.30-5.90) m/uL Hgb 8.7 L (13.0-17.5) gm/dL Hct 26.7 L (39.0-53.0) % RDW 19.7 H (11.5-15.5) % Neutrophils # (Manual) 14.70 H (1.3-7.7) k/uL Lymphocytes # (Manual) 0.66 L (1.0-4.8) k/uL Myelocytes # (Manual) 0.16 H (0) k/uL Nucleated RBCs 1 H (0-0) /100 WBC D-Dimer 5.88 H (<0.60) mg/L FEU Chloride 114 H (98-107) mmol/L BUN 58 H (9-20) mg/dL Creatinine 2.04 H (0.66-1.25) mg/dL Glucose 105 H (74-99) mg/dL Calcium 8.3 L (8.4-10.2) mg/dL Lactate Dehydrogenase 1259 H (313-618) U/L Total Protein 5.7 L (6.3-8.2) g/dL Albumin 2.7 L (3.5-5.0) g/dL Microbiology - Last 24 Hours (Table) 12/25/20 09:00 Gram Stain - Final Sputum Sputum Culture - Final Serratia marcescens Pseudomonas aeruginosa Assessment and Plan Plan: 1 Acute hypoxemic respiratory failure secondary to acute COVID-19 pneumonia, cannot rule out underlying bacterial pneumonia. Currently Decadron and the patient is also taking an oral Augmentin after being on Unasyn for a few days. Pro-calcitonin level has declined down to 1.3. Leukocytosis is present . Chest x-ray showing diffuse but the pulmonary infiltrates right more than left consistent more so with COVID-19 related pneumonia. The patient has also grown Serratia and Pseudomonas and the patient and his sputum. His antibiotics have been modified into IV cefepime. She remains on oxygen 5 L of oxygen by nasal cannula. His condition essentially unchanged. Very much debilitated. Very much weak. He is limited and the patient would have a Dobbhoff catheter inserted for enteral feeding and nutritional support. 2 Leukocytosis, pro-calcitonin greater than 100 secondary to above, currently down to 1.53 3 Acute exacerbation of systolic congestive heart failure 4 Acute renal failure with a history of chronic renal failure secondary to nephrosclerosis, creatinine 2.0 stable for now 5 Atrial fibrillation with a rapid ventricular response, currently atrial tachycardia, on beta blockers 6 Recent CVA 7 Troponin leak 8 Coronary artery disease with previous history of coronary artery bypass grafting 9 Chronic obstructive pulmonary disease 10 Remote history of lung cancer, details of which are unclear 11 Former smoker 12 chronic anemia, multifactorial. No signs of any acute GI bleed. Hemoglobin is stable for now. Plan: stable with FiO2 to maintain saturation above 90% currently on 4 L -5 L per minute nasal cannula Continue IV cefepime Chest x-ray findings are stable from today Oxygenation is stable Hemoglobin is stable and there is no further bouts of GI bleed Continue Decadron Monitor renal function Monitor mental status Remains on Decadron, Lovenox, vitamin supplements The patient passed a swallow evaluation is less, his oral intake is minimal and the patient would benefit from a Dobbhoff and enteral feeding for nutritional support. He remains extremely debilitated and obviously carries a poor prognosis. Labs were reviewed and the patient's LDH is slightly improved compared to yesterday. Hemoglobin is stable. Creatinine is stable. We will continue to follow
--- NOTE | 2020-12-28 15:07 | XR ---
EXAMINATION TYPE: XR chest 1V portable DATE OF EXAM: 12/28/2020 COMPARISON: Chest x-ray same dated earlier time HISTORY: NG tube placement TECHNIQUE: Single frontal view of the chest is obtained. FINDINGS: There is been interval placement of NG tube which is overlying the thoracic esophagus leve l. No significant interval change. IMPRESSION: NG tube as described
--- NOTE | 2020-12-28 15:08 | XR ---
EXAMINATION TYPE: XR chest 1V portable DATE OF EXAM: 12/28/2020 COMPARISON: Prior chest x-ray same dated earlier time HISTORY: NG tube placement TECHNIQUE: Single frontal view of the chest is obtained. FINDINGS: There is been interval removal of the Dobbhoff tube. NG tube is not seen. No significant i nterval change. IMPRESSION: Removal of Dobbhoff tube
--- NOTE | 2020-12-28 15:09 | XR ---
EXAMINATION TYPE: XR chest 1V DATE OF EXAM: 12/28/2020 COMPARISON: Chest x-ray same date at earlier time HISTORY: Pneumonia, Dobbhoff tube placement TECHNIQUE: Single frontal view of the chest is obtained. FINDINGS: There is been interval placement of a Dobbhoff tube which is coursing into the right chantal tem bronchus region. No other significant interval change. IMPRESSION: Dobbhoff tube as described
--- NOTE | 2020-12-28 15:10 | XR ---
EXAMINATION TYPE: XR chest 1V portable DATE OF EXAM: 12/28/2020 COMPARISON: Prior chest x-ray and same dated earlier time. HISTORY: NG tube placement TECHNIQUE: Single frontal view of the chest is obtained. FINDINGS: There is been interval advancement of NG tube which is showing the side-port within the st omach. No other significant interval change. IMPRESSION: NG tube is in appropriate position.
--- NOTE | 2020-12-28 18:42 | PN ---
PROGRESS NOTE DATE OF SERVICE: 12/28/2020 REASON FOR FOLLOWUP: Pneumonia. INTERVAL HISTORY: The patient is currently afebrile. The patient is breathing comfortably. The patient seems to have developed an ileus and did have an NG placed in. Denied any chest pain or worsening of abdominal pain and no diarrhea has been reported. PHYSICAL EXAMINATION: Blood pressure 109/67, pulse of 94, temperature 98.1. He is 91% on 5 L nasal cannula. General description is an elderly male lying in bed in no distress. RESPIRATORY SYSTEM: Unlabored breathing with decreased intensity of breath sounds. No wheeze. HEART: S1, S2. Regular rate and rhythm. ABDOMEN: Soft. No tenderness. LABS: Hemoglobin is 8.3, white count 16.4, BUN of 58, creatinine 2.04. Sputum with Pseudomonas and Serratia marcescens. DIAGNOSTIC IMPRESSION AND PLAN: Patient with Pseudomonas/Serratia marcescens pneumonia, covered with cefepime; to continue while monitoring his clinical course closely. Antibiotic dose has been adjusted. Continue with supportive care. MMODL / IJN: [id number] /
[2020-12-28 23:40] LABS: Glucose,Whole Blood 112 mg/dL (75-99)
[2020-12-29] MEDS ORDERED: LORazepam 2 MG/ML INJ IV ONE (01:30)
[2020-12-29 08:07] LABS: Albumin 2.8 g/dL (3.5-5.0); Calcium 8.4 mg/dL (8.4-10.2); Potassium 4.1 mmol/L (3.5-5.1); Total Bilirubin 0.5 mg/dL (0.2-1.3); Total Protein 5.9 g/dL (6.3-8.2)
[2020-12-29 08:14] LABS: Anisocytosis Moderate; HCT 26.9 % (39.0-53.0); HGB 8.5 gm/dL (13.0-17.5); Hypochromasia Moderate; MCHC 31.7 g/dL (31.0-37.0); MCV 91.7 fL (80.0-100.0); Macrocytosis Slight; Mean Platelet Volume 8.2; Platelet Count 139 k/uL (150-450); Poikilocytosis Slight; RBC 2.93 m/uL (4.30-5.90); RDW 20.3 % (11.5-15.5)
--- NOTE | 2020-12-29 09:05 | CONS ---
CONSULTATION DATE OF SERVICE: December 29, 2020 REASON FOR CONSULTATION: Enteral tube placement. HISTORY OF PRESENT ILLNESS: The patient is an 89-year-old male admitted to the hospital with COVID- 19 pneumonia. He subsequently developed Pseudomonas/Serratia pneumonia and currently on broad-spectrum antibiotics. Apparently the patient has been having significantly decreased oral intake. He currently is on the floor. Remains on 5 L of oxygen and Pulmonary and Infectious Disease are following the patient closely. He had an attempted Dobbhoff tube placement yesterday by Dr. Ambriz which was not successful and subsequently he had an NG tube placed and apparently just before the feedings were initiated, the patient accidentally pulled the tube out around 3:00 am this morning. He did have a video fluoroscopy examination of the swallow that showed no evidence of aspiration. We are consulted for Dobhoff feeding tube placement. The patient is somewhat sleepy this morning. However, he is arousable and he denies any symptoms. He reports no abdominal pain. No nausea, no vomiting. PAST MEDICAL HISTORY: Significant for hypertension, hyperlipidemia, coronary artery disease, previous CABG, COPD, seizure disorder, and prior history of lung cancer. MEDICATIONS: Include apresoline, Ambien, Protonix, Lopressor, Megace, and Lasix. SOCIAL HISTORY: History of smoking. No alcohol use. FAMILY HISTORY: Unremarkable. REVIEW OF SYSTEMS: Review of systems could not be obtained as patient is quite sleepy during examination. PHYSICAL EXAMINATION: VITAL SIGNS: Blood pressure 121/68, pulse rate 106, temperature 97.4. HEENT: Examination unremarkable. Conjunctivae are pink. Sclerae anicteric. Oral cavity no lesions. CHEST: Not auscultated. HEART: Not auscultated. ABDOMEN: Soft, it was nontender, not distended. EXTREMITIES: No pedal edema. NEURO: Very sleepy. LABS: Labs done today WBC 16.4, hemoglobin 8.7, platelets normal. Basic metabolic panel showed a BUN of 58, creatinine 2.04. LDH 1259. CRP 7.5. Albumin 2.8. IMPRESSION: 1. This is a patient with COVID-19 pneumonia admitted to the hospital 2 weeks ago with acute respiratory failure and presently he is maintained on 5 L of oxygen through the nasal cannula and remains somewhat stable. Continues to have significantly poor appetite and apparently as per the nursing staff, he had not been eating much since being in the hospital secondary to poor oral intake. Recent modified barium swallow did not show any evidence of aspiration. He had an attempted Dobbhoff tube feeding placement by Dr. Ambriz yesterday which was unsuccessful. Subsequently had an NG tube placed, but the patient pulled it out early this morning even before the tube feeds were initiated. 2. Pneumonia on broad-spectrum antibiotics. 3. History of chronic obstructive pulmonary disease. 4. History of hypertension and hyperlipidemia. 5. Anemia of chronic disease. RECOMMENDATIONS: 1. Will will attempt to place a Dobhoff tube feeding at the bedside again and if this is not successful, we will recommend a PEG tube placement for nutritional purposes. 2. Continue with symptomatic supportive care. 3. Continue with broad-spectrum antibiotics. 4. We will follow with you closely. Thank you for this consultation. MMODL / IJN: [id number] /
[2020-12-29 09:13] LABS: Band Neutrophils % 1 %; Monocytes # (M) 0.89 k/uL (0-1.0); Neutrophils % (M) 90 %; Nucleated Red Blood Cells 1 /100 WBC (0-0); Total Cells Counted 200
[2020-12-29 09:14] LABS: Lymphocytes # (M) 0.74 k/uL (1.0-4.8); Polychromasia Present; WBC 14.8 k/uL (3.8-10.6)
[2020-12-29 09:15] LABS: Mixed Population RBC Present
[2020-12-29] MEDS: dexAMETHasone 2 MG TAB PO SCH (10:16)
[2020-12-29] MEDS: METOPROLOL TARTRATE 50 MG TAB PO SCH ×2 (10:16→20:05)
[2020-12-29] MEDS: ASPIRIN 81 MG PO SCH (10:16)
[2020-12-29] MEDS: ASCORBIC ACID 500 MG TAB PO SCH (10:17)
[2020-12-29] MEDS: CHOLECALCIFEROL 25 MCG (1000 IU) TABLET PO SCH (10:17)
[2020-12-29] MEDS: ZINC SULFATE 220 MG CAP PO SCH (10:17)
[2020-12-29] MEDS: FUROSEMIDE 20 MG TAB PO SCH (10:17)
[2020-12-29] MEDS: CEFEPIME 1 GM in SODIUM CHLORIDE 0.9% 50 ML IVPB SCH ×2 (10:18→20:05)
[2020-12-29] MEDS: ENOXAPARIN 30 MG/0.3 ML SYRINGE SQ SCH (10:26)
[2020-12-29] MEDS: MEGESTROL 400 MG/10 ML CUP PO SCH ×2 (10:26→20:05)
--- NOTE | 2020-12-29 11:02 | P.PN ---
Subjective Progress Note Date: 12/29/20 COPD exacerbation, A. fib with RVR, pneumonia This is a pleasant 89-year-old gentleman who follows with Dr. Boss as his primary care provider. He has history of hypertension, CVA, coronary artery disease with previous coronary artery bypass grafting, COPD, seizure disorder, previous smoker, lung cancer. He presented to the emergency room yesterday with complaints of increasing shortness of breath, chest tightness and wheezing. He was found to be in atrial fibrillation with a rapid ventricular response. Chest x-ray revealed bilateral interstitial pneumonia. Cardiomegaly. Small right pleural effusion and pleural reaction at the right lung base. White count 17.4. Hemoglobin 9.1. Sodium 139. Potassium 5.4. Creatinine 3.75. Presenting creatinine was 5.09. Pro-calcitonin greater than 100. Troponin 0.105. C- reactive protein 58.6. Andres virus positive. He is seen today in consultation on the selective care unit. The patient is a poor historian. Unable to determine when his symptoms started. He is currently resting fairly comfortably in bed. Awake and alert in no acute distress. Maintaining O2 saturations in the high 90s on 3 L/m per nasal cannula. Afebrile. Slightly tachycardic. Ultrasound of the kidneys revealed no hydronephrosis or nephrolithiasis bilaterally. His initiated on a Cardizem drip at 10 mg per hour, heparin drip and antibiotics in the form of ceftriaxone and azithromycin. His initiated on Decadron 10 mg IV daily. Progress note dated 12/17/2020. 89-year-old black male, seen by our nurse practitioner yesterday in consultation. The patient has a history of hypertension, CVA, coronary disease, previous bypass grafting, COPD, seizure disorder, and lung cancer. The patient apparently presented to the emergency department with complaints of increasing shortness of breath, chest tightness, and wheezing. He was found to have atrial fibrillation with RVR, and also was positive for coronavirus infection. The patient seems be recently comfortable this time. He is on 3 L. Saturations are 97%. Heart rate 86. Respiratory rate 18. No audible wheezing, use of accessory muscles, or conversational dyspnea. The patient is not a particularly good historian. White count 15.8, hemoglobin 7.9, hematocrit 24.8, and platelet count 120,000. PTT is 37.8. Sodium 141, potassium 3.4, chlorides 104, CO2 25, anion gap 12, BUN 97, and creatinine 2.67. Initial lactic acid 2.2. Repeat lactic acid 1.1. Chest x-ray shows bilateral interstitial pneumonia with cardiomegaly. There is a small right-sided pleural effusion. Progress note dated 12/18/2020. 89-year-old black male, seen in consultation 2 days ago. I saw the patient yesterday in follow-up. The patient has a history of essential hypertension, CVA, coronary artery disease, previous bypass grafting, COPD, seizure disorder, and lung cancer. The patient presented to the emergency department with complaints of increasing shortness of breath, chest tightness and wheezing, and was found to have atrial fibrillation with RVR, and also tested positive for coronavirus infection. Currently, the patient appears to be relatively comfortable. He is on 3 L nasal cannula, and his saturations are 100%. Blood pressure 112/72, heart rate 89, respiratory rate 18, and his temperature is 97.8. Labs show a white count of 14.6, hemoglobin 7.8, hematocrit 25.6, and platelet count 121,000. D-dimer is 2.0. Sodium 141, potassium 3.8, chlorides 108, CO2 26, anion gap 7, BUN 76, creatinine 2.19. No recent chest x-ray to review. The patient is seen today 12/19/2020 in follow-up on the cardiac floor. He is currently resting comfortably in bed. Awake, alert and in no acute distress. He is maintaining O2 saturation in the 90s on 3 L/m per nasal cannula. Lactated Ringer's at 75 ML's per hour. He's been afebrile. Hemodynamically stable. Chest x-ray reveals evidence of congestive heart failure and underlying COPD. Chronic pleural reaction. Blood cultures reveal no growth. White count 12.4. Hemoccult was 7.7. Platelets 113. Sodium 141. Potassium 4.0. Creatinine 2.09. ProBNP 36,700. He remains on Decadron, Lovenox, vitamin supplements. Antibiotics in the form of Unasyn. The patient is seen today 12/20/2020 in follow-up on the selective care unit. He is currently resting comfortably in bed. Awake and alert in no acute distress. Rectal maintaining O2 saturations in the 90s on 3 L/m per nasal cannula. She's been afebrile. Hemodynamically stable. Blood cultures reveal no growth. No new labs today. He remains on Decadron, Lovenox, vitamin supplements. Antibiotics in the form of Unasyn. Lactated Ringer's at 75 ML's per hour. The patient is seen today 12/21/2020 in follow-up on the selective care unit. He has currently resting comfortably in bed. Awake and alert in no acute distress. He is on 2 L/m per nasal cannula. O2 saturation 98%. White count 17.0. Hemoglobin 8.9. Sodium 140. Potassium 3.7. Creatinine 1.92. He is continued on Unasyn. Remains on Decadron, Lovenox, vitamin supplements. Echocardiogram reveals moderate impaired left ventricular systolic function with ejection fraction 40-45%. Severe pulmonary hypertension. The patient is seen today 12/22/2020 in follow-up on the selective care unit. He is currently resting comfortably in bed. Maintaining O2 saturations in the 90s on 2 L/m per nasal cannula. Chest x-ray shows cardiomegaly with chronic parenchymal changes with right greater than left bilateral multifocal opacities and tiny bilateral pleural effusions. No change compared to previous. 0.9 normal saline @ 20 ML's per hour. He is continued on Decadron, Lovenox, vitamin supplements. Antibiotics in the form of Unasyn. Blood cultures reveal no growth. White count 18.5. Hemoglobin 8.8. Lymphocytes 0.4. Sodium 141. Potassium 3.9. Creatinine 1.82. The patient is seen today 12/23/2020 in follow-up on the selective care unit. He is awake and alert in no acute distress. Resting quite comfortably in bed. Maintaining O2 saturations in the 90s on 4 L/m per nasal cannula. No IV fluids. Pro-calcitonin down to 3.6. He remains on Unasyn. He remains on dexamethasone, Lovenox, vitamin supplements. Transitioned to oral diuretics. 12/24 2020, the patient is being seen for a follow-up. The patient remains on 4 L of [id number] cannula to maintain a saturation above 90%. Is a case of COVID-19 related pneumonia with secondary story failure. His superinfection is also suspected knowing that the patient's pro-calcitonin level was elevated significantly. The most recent chest x-ray showing diffuse but the pulmonary infiltrates right more than left. The pro-calcitonin level is down to 3.6 from 12/22/2020. The white cell count of 18.5 with a hemoglobin of 8.9. Platelet count is stable at 178. The patient continues to have some lymphopenia. Creatinine is down to 1.8 with the rest of the electrodes being within normal limits. She remains on empiric antibiotic coverage with IV Unasyn initially and later on Augmentin. He is on Decadron 4 mg by mouth daily. He is on Lasix 20 mg by mouth daily and he is also on Lovenox 30 mg subcu for DVT prophylaxis. 12/25/2020, the patient is being seen for a follow-up. He is a case of COVID-19 infection/pneumonia with superinfection, possibly a pneumonia based on elevated calcitonin level. The chest x-ray was showing patchy bilateral infiltrates and cardiomegaly. This was the x-ray from yesterday. Based on this, the patient was kept on a combination of Decadron currently on 2 mg and the patient is also on a course of Augmentin 875 mg twice a day after being treated with IV Unasyn. This morning, the patient is on oxygen on 4 L with a pulse ox of 94%. Remains on Lovenox 30 mg subcu for DVT prophylaxis. With that was of 14.7. Hemoglobin dropped down to 6.8 with a platelet count of 172. Coagulation profile has been adequate from prior evaluations. His creatinine is up to 2.27 with a BUN of 62 and the patient had a follow-up pro-calcitonin level of 3.6. Stool for occult blood was also negative. Units of packed RBC has already been ordered for this patient. 12/26/2020, the patient essentially looks the same as yesterday and he remains on 5 L of oxygen by nasal cannula. His swallow mechanism has been suspected to be 4 and was suspected felt aspiration and for that reason we sent him for a swallow evaluation and the patient is having a modified barium swallow done today. He is a case of COVID-19 related pneumonia. His pro calcitonin level was elevated and is improving and is down to 1.53 also and we suspected superinfection and for that reason the patient was given antibiotics initially Zosyn and later on Augmentin. His chest x-ray from today is showing interstitial infiltrates bilaterally more so on the right where the right lung is essentially infiltrated in the left upper lobe was also infiltrated in the left lower lobe essentially spared. He is receiving Decadron at a dose of 2 mg by mouth daily. He is also on Lovenox and we had to stop it because of a drop in hemoglobin down to 6.8 and this can be essentially resumed as the patient has no evidence of bleeding. He received a unit of packed RBC and hemoglobin responded nicely and felt to 9.2. His creatinine is stable at 2.1 which is improved compared to yesterday. 12/27/2020 the patient remains on oxygen at 5 L which is essentially the same as yesterday. With suspected aspiration. With a bedside swallow evaluation following that the patient was given a modified barium swallow and the patient was found to have some oral and pharyngeal phases that were appropriate and there was appropriate for propagation up with material. There was normal mastication. No evidence of any aspiration. As such, the patient was cleared. At this point in time, the patient is still being treated for a combination of COVID-19 related pneumonia with a suspected superinfection. The patient remains on Augmentin leg grams twice a day. Sputum sample was sent and the patient sputum sample came back positive for gram-negative bacillus including sedation marcescens and this microorganism was resistant to Augmentin. The patient is also on Decadron 2 mg by mouth daily and the patient is also taking Lovenox 30 mg subcu on a daily basis. Chest x-ray findings and essentially unchanged the patient has diffuse interstitial infiltrates bilaterally more so on the right compared to the left. His d-dimer is at 4.22. Creatinine is stable at 2.1 . He continues to have some congested cough. His pro calcitonin level has dropped down to 1.53. As stated, chest x-ray findings are essentially unchanged and stable. He remains quite debilitated at this point in time. He passed a swallow evaluation. 12/28/2020, the patient is being seen for a follow-up. He remains on 5 L of oxygen by nasal cannula. His chest x-ray was showing diffuse pulmonary infiltrates most on the right compared to the left. Noted is a case of COVID-19 related pneumonia in his sputum also showed Serratia and subsequent culture showed Pseudomonas. Both of them are sensitive to Levaquin. Nevertheless, due to presence of pseudomonas, would like to cover this patient with a broader spectrum antibiotics with IV cefepime. Otherwise, the patient is essentially t he same as yesterday. White cell count is elevated with a white cell count of 16. Hemoglobin stable at 8.7 and the patient has not had any further episodes of GI bleeds. His creatinine is also stable at 2.04 with a BUN of 58 and the patient's serum bicarb is 22. Electrodes are normal. His d-dimer is at 5.88. LDH level is at 1259 which is slightly improved compared to earlier studies. He is weak. His debilitated. Oral intake is quite diminished. He has a congested cough. Heart is using his incentive spirometer. He did pass a swallow evaluation. He remains on Decadron. He remains on Lovenox 30 mg subcutaneous for DVT prophylaxis. This was restarted yesterday. 12/29/2020 the patient is on 8 L of oxygen by nasal cannula. Dobbhoff insertion catheter was unsuccessful. I switched him to a NG tube catheter which she was keeping it on till evening and later on he pulled it out because of discomfort. As such, enteral feeding was also discontinued. He is going back to his regular oral habits which is essentially poor at this point in time. There is also a concern of aspiration. He did pass a swallow evaluation nevertheless, he is eating habits has been poor and his caloric intake has been also poor. Aspiration is to be given for PEG tube insertion. GI is on the case. He is known to have also pseudomonas in his sputum in addition to Serratia. I put him on IV cefepime yesterday. He does have pneumonia which is probably a combination of gram-negative and COVID-19 related pneumonia. On his blood work, the patient has a white cell count 14.8. His hemoglobin is at 8.5. He has a creatinine of 2.0 which is stable compared to yesterday and the sodium level is at 144. Has implemented markings from few days back showed an LDH level of 1259. His long-term prognosis poor. He is quite debilitated. He is 89 years of age. He has multiple medical problems and comorbidities and he has been significantly weak and debilitated especially with this ongoing COVID-19 pneumonia with superinfection with gram-negative bacteria. Objective - Vital Signs Vital signs: Vital Signs Temp 97.5 F L 12/29/20 08:47 Pulse 106 H 12/29/20 08:47 Resp 24 12/29/20 08:47 BP 146/73 12/29/20 08:47 Pulse Ox 89 L 12/29/20 08:47 Intake & Output 12/28/20 12/29/20 12/29/20 18:59 06:59 18:59 Intake Total 90 270 Output Total 850 Balance -760 270 Weight 52.5 kg 43.5 kg Intake: Oral 270 Tube Feeding 90 Output: Urine 850 Other: Voiding Method Urinal Urinal # Voids 1 2 1 # Bowel Movements 1 1 - Exam No acute distress, pleasant 89-year-old gentleman, poor historian, currently on 8 L nasal cannula, with saturations at 95%. No obvious respiratory distress. He looks quite lethargic and he looks significantly debilitated at this point in time. He is laying down on his right side. Doesn't do a lot of activity. Does communicate HEENT examination is grossly unremarkable. Neck supple. Full range of motion. No adenopathy thyromegaly or neck vein distention. Cardiovascular examination reveals regular rhythm rate. S1-S2 normal. No S3 or S4. No discernible murmur noted. Heart rate 105 bpm. Lungs reveal scattered rhonchi and crackles. Breath sounds equal bilaterally. He is not taking deep breaths. No distinct wheezes noted. Abdomen soft bowel sounds are heard. No masses or tenderness. Extremities are intact. No cyanosis clubbing or edema. Skin is without rash or lesion. Neurologic examination is brief but nonfocal. - Labs CBC & Chem 7: 12/29/20 07:29 12/29/20 07:29 Labs: Abnormal Lab Results - Last 24 Hours (Table) 12/28/20 12/28/20 12/29/20 Range/Units 06:57 23:37 07:29 WBC 16.4 H 14.8 H (3.8-10.6) k/uL RBC 2.93 L (4.30-5.90) m/uL Hgb 8.5 L (13.0-17.5) gm/dL Hct 26.9 L (39.0-53.0) % RDW 20.3 H (11.5-15.5) % Plt Count 139 L (150-450) k/uL Neutrophils # (Manual) 14.70 H 13.40 H (1.3-7.7) k/uL Lymphocytes # (Manual) 0.66 L 0.74 L (1.0-4.8) k/uL Myelocytes # (Manual) 0.16 H (0) k/uL Nucleated RBCs 1 H 1 H (0-0) /100 WBC Chloride (98-107) mmol/L Carbon Dioxide (22-30) mmol/L BUN (9-20) mg/dL Creatinine (0.66-1.25) mg/dL Glucose (74-99) mg/dL POC Glucose (mg/dL) 112 H (75-99) mg/dL Alkaline Phosphatase (38-126) U/L Total Protein (6.3-8.2) g/dL Albumin (3.5-5.0) g/dL 12/29/20 Range/Units 07:29 WBC (3.8-10.6) k/uL RBC (4.30-5.90) m/uL Hgb (13.0-17.5) gm/dL Hct (39.0-53.0) % RDW (11.5-15.5) % Plt Count (150-450) k/uL Neutrophils # (Manual) (1.3-7.7) k/uL Lymphocytes # (Manual) (1.0-4.8) k/uL Myelocytes # (Manual) (0) k/uL Nucleated RBCs (0-0) /100 WBC Chloride 115 H (98-107) mmol/L Carbon Dioxide 21 L (22-30) mmol/L BUN 59 H (9-20) mg/dL Creatinine 2.18 H (0.66-1.25) mg/dL Glucose 101 H (74-99) mg/dL POC Glucose (mg/dL) (75-99) mg/dL Alkaline Phosphatase 136 H (38-126) U/L Total Protein 5.9 L (6.3-8.2) g/dL Albumin 2.8 L (3.5-5.0) g/dL Microbiology - Last 24 Hours (Table) 12/25/20 09:00 Gram Stain - Final Sputum Sputum Culture - Final Serratia marcescens Pseudomonas aeruginosa Assessment and Plan Plan: 1 Acute hypoxemic respiratory failure secondary to acute COVID-19 pneumonia, . The patient has also grown Serratia and Pseudomonas and the patient and his sputum. His antibiotics have been modified into IV cefepime. She remains on o xygen 8 L of oxygen by nasal cannula. His condition essentially unchanged. Very much debilitated. Very much weak. Quite debilitated. Most recent pro- calcitonin level from 12/26/2020 was 1.5. A follow-up levels will be obtained. There is still showing bilateral point infiltrates right more than left. Patient currently on IV cefepime. The patient is also on decadrone 2 Leukocytosis, pro-calcitonin greater than 100 secondary to above, currently down to 1.53 3 Acute exacerbation of systolic congestive heart failure 4 Acute renal failure with a history of chronic renal failure secondary to nephrosclerosis, creatinine stable 5 Atrial fibrillation with a rapid ventricular response, currently atrial tachycardia, on beta blockers 6 Recent CVA 7 Troponin leak 8 Coronary artery disease with previous history of coronary artery bypass grafting 9 Chronic obstructive pulmonary disease 10 Remote history of lung cancer, details of which are unclear 11 Former smoker 12 chronic anemia, multifactorial. No signs of any acute GI bleed. Hemoglobin is stable for now. Plan: stable with FiO2 to maintain saturation above 90% currently on 8 L per minute nasal cannula Continue IV cefepime Continue Decadron Recheck pro-calcitonin level Obtain a follow-up chest x-ray for morning Hemoglobin is stable and there is no further bouts of GI bleed Monitor renal function Monitor mental status Lovenox, vitamin supplements The patient passed a swallow evaluation the less nevertheless, his oral intake is minimal and a Dobbhoff tube was unsuccessful and the patient had an NG tube which ultimately refused and he pulled out. GI is on the case. Consider PEG tube insertion. He remains extremely debilitated and obviously carries a poor prognosis. We will continue to follow
--- NOTE | 2020-12-29 13:11 | PN ---
PROGRESS NOTE Patient is seen for followup for acute kidney injury. His renal function has been fairly stable. Serum creatinine staying at about 2 mg/dL. It appears that patient also has underlying CKD. He is currently seen sitting up and eating. The patient is being fed. PHYSICAL EXAMINATION: Blood pressure this morning 146/73, heart rate 101 per minute. He is afebrile. No evidence of edema noted in and lower extremities. Patient is awake and following commands. Moving all 4 extremities. LAB: Show sodium 144, potassium 4.1, chloride 115, BUN 59, creatinine 2. ASSESSMENT: 1. Acute kidney injury acute tubular necrosis currently improved. Renal function currently staying stable with creatinine at about 2 mg/dL. No proteinuria on UA. No evidence of hydronephrosis on ultrasound. 2. Chronic kidney disease stage IIIB. Baseline creatinine 1.5-2.3 secondary to nephrosclerosis. 3. COVID pneumonia with component of aspiration, maintained on antibiotics. Sputum culture positive for Serratia. 4. 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 5. Hypokalemia from diuresis. 6. Anemia of chronic kidney disease. PLAN: Continue to encourage increased oral intake. Continue with Aranesp and continue with current dose of Lasix. MMODL / IJN: [id number] /
--- NOTE | 2020-12-29 16:30 | P.PN ---
Subjective Progress Note Date: 12/28/20 Fitz Blue, is an 89 year old male who presented to [facility] emergency room with a chief complaint of worsening shortness of breath, patient stated that he started having shortness of breath on the day of presentation that progressed to significant breathing difficulty EMS were sushma smith, they found patient to be in significant respiratory distress he was started on nonrebreather mask and was treated with IV Solu-Medrol and DuoNeb updrafts and was brought in to [facility] emergency room. In the emergency room patient was evaluated, his vital examination on presentation revealed a temperature of 98.6 pulse 142 respiration 18 blood pressure 99/78 pulse ox 94% on room air, laboratory data on presentation revealed a white blood count of 13.5 hemoglobin 10.5 platelet count 134 d-dimer 3.88, sodium 140 potassium 5.3 chloride 106 CO2 16 BUN 19 9 creatinine 5.09 glucose level was 136 plasma lactic acid was 3.5 troponin level was elevated at 0.105 C-reactive p rotein 58.6 Procalcitonin more than 100 and coronavirus PCR was positive. Chest x-ray was done in the emergency room and revealed bilateral interstitial pneumonia, cardiomegaly, small right pleural effusion and pleural reaction , EKG was done in the emergency room and revealed atrial fibrillation with rapid ventricular response and nonspecific ST abnormality . Patient was admitted to telemetry floor for further evaluation and treatment. Patient was admitted to [facility] in August 2020 after having a stroke, he was discharged to [facility] for rehabilit ation and was discharged home about 6 weeks ago. His past medical history is also significant for hypertension, hyperlipidemia, coronary artery disease with history of coronary artery bypass graft surgery, history of COPD, history of pulmonary hypertension, history of multiple lumbar compression vertebral fractures, history of anemia, history of carotid stenosis, history of osteoarthritis, and history of protein calorie malnutrition. On 12/17/2020 patient was seen and examined on the medical floor he is alert and oriented 3 in no apparent distress he is complaining of nausea otherwise he de nies any complaints there is no fever or chills no headache or dizziness no chest pain no shortness of breath no cough no vomiting no abdominal pain no diarrhea no blood in the stools no burning with urination no frequency or urgency and no hematuria. Kidney function has improved significantly since yesterday, otherwise no change in condition. On 12/18/2020 patient was seen and examined on the medical floor he is alert and oriented 3 in no apparent distress he is complaining of nausea otherwise he denies any complaints there is no fever or chills no headache or dizziness no chest pain , he has some shortness of breath no cough no vomiting no abdominal pain no diarrhea no blood in the stools no burning with urination no frequency or urgency and no hematuria. Kidney function has improved significantly since yesterday, otherwise no change in condition. On 12/19/2020 patient was seen and examined on the medical floor he is alert and oriented 3 in no apparent distress he is complaining of nausea otherwise he denies any complaints there is no fever or chills no headache or dizziness no chest pain , he has some shortness of breath no cough no vomiting no abdominal pain no diarrhea no blood in the stools no burning with urination no frequency or urgency and no hematuria. Kidney function has improved significantly since yesterday, otherwise no change in condition. BNP is significantly elevated, patient still having shortness of breath, will check Echocardiogram and consult cardiology. On 12/20/2020 patient was seen and examined on the medical floor he is alert and oriented 3 in no apparent distress he is complaining of nausea otherwise he denies any complaints there is no fever or chills no headache or dizziness no chest pain , he has some shortness of breath no cough no vomiting no abdominal pain no diarrhea no blood in the stools no burning with urination no frequency or urgency and no hematuria. Kidney function has improved significantly since yesterday, otherwise no change in condition. BNP is significantly elevated, patient still having shortness of breath, will check Echocardiogram and consult cardiology. patient was started on IV lasix, awaiting Echo. On 12/21/2020 patient was seen and examined on the medical floor he is alert and oriented 3 in no apparent distress he is complaining of nausea otherwise he denies any complaints there is no fever or chills no headache or dizziness no chest pain , he has some shortness of breath no cough no vomiting no abdominal pain no diarrhea no blood in the stools no burning with urination no frequency or urgency and no hematuria. Kidney function has improved significantly since yesterday, otherwise no change in condition. BNP is significantly elevated, patient still having shortness of breath, will check Echocardiogram and consult cardiology. patient was started on IV lasix, repeat CXR ordered for tomorrow. On 12/22/2020 patient was seen and examined on the medical floor he is alert and oriented 3 in no apparent distress he is complaining of nausea otherwise he denies any complaints there is no fever or chills no headache or dizziness no chest pain , he has some shortness of breath no cough no vomiting no abdominal pain no diarrhea no blood in the stools no burning with urination no frequency or urgency and no hematuria. Kidney function has improved significantly since yesterday, otherwise no change in condition. BNP is significantly elevated, patient still having shortness of breath, will check Echocardiogram and consult cardiology. patient was started on IV lasix, repeat CXR ordered for tomorrow. at this time will switch to oral lasix and oral Decadron continue to monitor, possi ble discharge in the next 1-2 days. On 12/23/2020 Patient was seen and examined on the medical floor, he is alert and oriented x 3 in no distress, he denies any complaints there is no fever or chills no headache or dizziness no chest pain no shortness of breath no palpitation no cough no nausea or vomiting no abdominal pain no diarrhea no blood in the stools no burning with urination no frequency or urgency and no hematuria, there is no weakness or numbness in any of the extremities no change in vision speech or gait. White blood count is still significantly elevated pro calcitonin is elevated chest x-rays revealing some worsening infectious disease following awaiting further recommendation will continue to monitor On 12/24/2020 Patient was seen and examined on the medical floor, he is alert and oriented x 3 in no distress, he denies any complaints there is no fever or chills no headache or dizziness no chest pain no shortness of breath no palpitation no cough no nausea or vomiting no abdominal pain no diarrhea no blood in the stools no burning with urination no frequency or urgency and no hematuria, there is no weakness or numbness in any of the extremities no change in vision speech or gait. White blood count is still significantly elevated pro calcitonin is elevated chest x-rays revealing some worsening opacities, infectious disease following awaiting further recommendation will continue to monitor, today Will decrease dose of Decadron and continue to monitor On 12/25/2020 Patient was seen and examined on the medical floor, he is alert and oriented x 3 in no distress, he denies any complaints there is no fever or chills no headache or dizziness no chest pain no shortness of breath no palpitation no cough no nausea or vomiting no abdominal pain no diarrhea no blood in the stools no burning with urination no frequency or urgency and no hematuria, there is no weakness or numbness in any of the extremities no change in vision speech or gait. Hemoglobin is down to 6.8 today 1 unit of red blood cell transfusion was ordered will follow closely On 12/27/2020 Patient was seen and examined on the medical floor, he is alert and oriented x 3 in no distress, he has very poor oral intake he denies any complaints there is no fever or chills no headache or dizziness no chest pain no shortness of breath no palpitation no cough no nausea or vomiting no abdominal pain no diarrhea no blood in the stools no burning with urination no frequency or urgency and no hematuria, there is no weakness or numbness in any of the extremities no change in vision speech or gait. Nutrition are recommending appetite stimulant patient will be started on Megace. On 12/28/2020 Patient was seen and examined on the medical floor, he is alert and oriented x 3 in no distress, he denies any complaints there is no fever or chills no headache or dizziness no chest pain no shortness of breath no palpitation no cough no nausea or vomiting no abdominal pain no diarrhea no blood in the stools no burning with urination no frequency or urgency and no hematuria, patient has very poor oral intake, recommendation by nutrition is to start a Dobbhoff tube with enteral feeding will proceed as above. Objective - Vital Signs Vital signs: Vital Signs Temp 98.6 F 12/28/20 12:00 Pulse 96 12/28/20 12:00 Resp 24 12/28/20 12:09 BP 102/65 12/28/20 12:00 Pulse Ox 93 L 12/28/20 12:00 Intake & Output 12/27/20 12/28/20 12/28/20 18:59 06:59 18:59 Intake Total 287 170 Output Total 625 200 Balance -338 -30 Weight 52.5 kg 52.5 kg Intake: Intake, IV Titration 50 50 Amount Cefepime 1 gm In Sodium 50 50 Chloride 0.9% 50 ml @ 12. 5 mls/hr IVPB Q12HR [facility] Rx#:[id number] Oral 237 120 Output: Urine 625 200 Other: Voiding Method Urinal Urinal # Voids 3 - Exam In general patient is alert and oriented x3 in no distress HEENT head normocephalic and atraumatic Neck is supple no JVD no goiter no lymphadenopathy no carotid bruit Chest examination is clear to auscultation no crackles no wheezing Cardiac exam reveals regular heart sounds S1 and S2 no gallops no murmurs Abdomen is soft nontender no organomegaly with normal bowel sounds Extremity exam reveals no edema no cyanosis or clubbing Neurological examination reveals no gross focal deficits - Labs CBC & Chem 7: 12/29/20 07:29 12/29/20 07:29 Labs: Abnormal Lab Results - Last 24 Hours (Table) 12/28/20 12/28/20 12/28/20 Range/Units 06:57 06:57 06:57 WBC 16.4 H (3.8-10.6) k/uL RBC 2.93 L (4.30-5.90) m/uL Hgb 8.7 L (13.0-17.5) gm/dL Hct 26.7 L (39.0-53.0) % RDW 19.7 H (11.5-15.5) % Neutrophils # (Manual) 14.70 H (1.3-7.7) k/uL Lymphocytes # (Manual) 0.66 L (1.0-4.8) k/uL Myelocytes # (Manual) 0.16 H (0) k/uL Nucleated RBCs 1 H (0-0) /100 WBC D-Dimer 5.88 H (<0.60) mg/L FEU Chloride 114 H (98-107) mmol/L BUN 58 H (9-20) mg/dL Creatinine 2.04 H (0.66-1.25) mg/dL Glucose 105 H (74-99) mg/dL Calcium 8.3 L (8.4-10.2) mg/dL Lactate Dehydrogenase 1259 H (313-618) U/L Total Protein 5.7 L (6.3-8.2) g/dL Albumin 2.7 L (3.5-5.0) g/dL Microbiology - Last 24 Hours (Table) 12/25/20 09:00 Gram Stain - Final Sputum Sputum Culture - Final Serratia marcescens Pseudomonas aeruginosa Assessment and Plan Plan: 1. COVID-19 infection 2. Bilateral interstitial pneumonia, possibly related to COVID-19, however bacterial superimposed infection cannot be ruled out 3. Evidence of sepsis, with leukocytosis, hypotension, and elevated lactic acid 4. Acute on chronic renal failure, creatinine on admission in August was 1.5 nephrology consultation requested 5. Severe hyperkalemia 6. Underlying history of COPD 7. Recent history of stroke in August 2020 8. Underlying history of hypertension 9. Underlying history of hyperlipidemia 10. Underlying history of coronary artery disease with previous history of coronary artery bypass graft surgery 11. Underlying history of multiple lumbar compression vertebral fractures. 12. Previous history of anemia and history of GI bleed, Hgb down to 7.7 will consult GI At this time patient is admitted to telemetry floor He received IV fluid boluses He was started on IV heparin and IV Cardizem drip He was started on IV antibiotic Rocephin and Zithromax He was started on steroids prednisone 40 mg daily Pulmonary, nephrology, infectious disease and cardiology consultation requested. Prognosis is poor due to advanced age, severity of illness, and multiple underlying medical conditions
--- NOTE | 2020-12-29 16:32 | P.PN ---
Subjective Progress Note Date: 12/29/20 Fitz Blue, is an 89 year old male who presented to [facility] emergency room with a chief complaint of worsening shortness of breath, patient stated that he started having shortness of breath on the day of presentation that progressed to significant breathing difficulty EMS were sushma smith, they found patient to be in significant respiratory distress he was started on nonrebreather mask and was treated with IV Solu-Medrol and DuoNeb updrafts and was brought in to [facility] emergency room. In the emergency room patient was evaluated, his vital examination on presentation revealed a temperature of 98.6 pulse 142 respiration 18 blood pressure 99/78 pulse ox 94% on room air, laboratory data on presentation revealed a white blood count of 13.5 hemoglobin 10.5 platelet count 134 d-dimer 3.88, sodium 140 potassium 5.3 chloride 106 CO2 16 BUN 19 9 creatinine 5.09 glucose level was 136 plasma lactic acid was 3.5 troponin level was elevated at 0.105 C-reactive p rotein 58.6 Procalcitonin more than 100 and coronavirus PCR was positive. Chest x-ray was done in the emergency room and revealed bilateral interstitial pneumonia, cardiomegaly, small right pleural effusion and pleural reaction , EKG was done in the emergency room and revealed atrial fibrillation with rapid ventricular response and nonspecific ST abnormality . Patient was admitted to telemetry floor for further evaluation and treatment. Patient was admitted to [facility] in August 2020 after having a stroke, he was discharged to [facility] for rehabilit ation and was discharged home about 6 weeks ago. His past medical history is also significant for hypertension, hyperlipidemia, coronary artery disease with history of coronary artery bypass graft surgery, history of COPD, history of pulmonary hypertension, history of multiple lumbar compression vertebral fractures, history of anemia, history of carotid stenosis, history of osteoarthritis, and history of protein calorie malnutrition. On 12/17/2020 patient was seen and examined on the medical floor he is alert and oriented 3 in no apparent distress he is complaining of nausea otherwise he de nies any complaints there is no fever or chills no headache or dizziness no chest pain no shortness of breath no cough no vomiting no abdominal pain no diarrhea no blood in the stools no burning with urination no frequency or urgency and no hematuria. Kidney function has improved significantly since yesterday, otherwise no change in condition. On 12/18/2020 patient was seen and examined on the medical floor he is alert and oriented 3 in no apparent distress he is complaining of nausea otherwise he denies any complaints there is no fever or chills no headache or dizziness no chest pain , he has some shortness of breath no cough no vomiting no abdominal pain no diarrhea no blood in the stools no burning with urination no frequency or urgency and no hematuria. Kidney function has improved significantly since yesterday, otherwise no change in condition. On 12/19/2020 patient was seen and examined on the medical floor he is alert and oriented 3 in no apparent distress he is complaining of nausea otherwise he denies any complaints there is no fever or chills no headache or dizziness no chest pain , he has some shortness of breath no cough no vomiting no abdominal pain no diarrhea no blood in the stools no burning with urination no frequency or urgency and no hematuria. Kidney function has improved significantly since yesterday, otherwise no change in condition. BNP is significantly elevated, patient still having shortness of breath, will check Echocardiogram and consult cardiology. On 12/20/2020 patient was seen and examined on the medical floor he is alert and oriented 3 in no apparent distress he is complaining of nausea otherwise he denies any complaints there is no fever or chills no headache or dizziness no chest pain , he has some shortness of breath no cough no vomiting no abdominal pain no diarrhea no blood in the stools no burning with urination no frequency or urgency and no hematuria. Kidney function has improved significantly since yesterday, otherwise no change in condition. BNP is significantly elevated, patient still having shortness of breath, will check Echocardiogram and consult cardiology. patient was started on IV lasix, awaiting Echo. On 12/21/2020 patient was seen and examined on the medical floor he is alert and oriented 3 in no apparent distress he is complaining of nausea otherwise he denies any complaints there is no fever or chills no headache or dizziness no chest pain , he has some shortness of breath no cough no vomiting no abdominal pain no diarrhea no blood in the stools no burning with urination no frequency or urgency and no hematuria. Kidney function has improved significantly since yesterday, otherwise no change in condition. BNP is significantly elevated, patient still having shortness of breath, will check Echocardiogram and consult cardiology. patient was started on IV lasix, repeat CXR ordered for tomorrow. On 12/22/2020 patient was seen and examined on the medical floor he is alert and oriented 3 in no apparent distress he is complaining of nausea otherwise he denies any complaints there is no fever or chills no headache or dizziness no chest pain , he has some shortness of breath no cough no vomiting no abdominal pain no diarrhea no blood in the stools no burning with urination no frequency or urgency and no hematuria. Kidney function has improved significantly since yesterday, otherwise no change in condition. BNP is significantly elevated, patient still having shortness of breath, will check Echocardiogram and consult cardiology. patient was started on IV lasix, repeat CXR ordered for tomorrow. at this time will switch to oral lasix and oral Decadron continue to monitor, possi ble discharge in the next 1-2 days. On 12/23/2020 Patient was seen and examined on the medical floor, he is alert and oriented x 3 in no distress, he denies any complaints there is no fever or chills no headache or dizziness no chest pain no shortness of breath no palpitation no cough no nausea or vomiting no abdominal pain no diarrhea no blood in the stools no burning with urination no frequency or urgency and no hematuria, there is no weakness or numbness in any of the extremities no change in vision speech or gait. White blood count is still significantly elevated pro calcitonin is elevated chest x-rays revealing some worsening infectious disease following awaiting further recommendation will continue to monitor On 12/24/2020 Patient was seen and examined on the medical floor, he is alert and oriented x 3 in no distress, he denies any complaints there is no fever or chills no headache or dizziness no chest pain no shortness of breath no palpitation no cough no nausea or vomiting no abdominal pain no diarrhea no blood in the stools no burning with urination no frequency or urgency and no hematuria, there is no weakness or numbness in any of the extremities no change in vision speech or gait. White blood count is still significantly elevated pro calcitonin is elevated chest x-rays revealing some worsening opacities, infectious disease following awaiting further recommendation will continue to monitor, today Will decrease dose of Decadron and continue to monitor On 12/25/2020 Patient was seen and examined on the medical floor, he is alert and oriented x 3 in no distress, he denies any complaints there is no fever or chills no headache or dizziness no chest pain no shortness of breath no palpitation no cough no nausea or vomiting no abdominal pain no diarrhea no blood in the stools no burning with urination no frequency or urgency and no hematuria, there is no weakness or numbness in any of the extremities no change in vision speech or gait. Hemoglobin is down to 6.8 today 1 unit of red blood cell transfusion was ordered will follow closely On 12/27/2020 Patient was seen and examined on the medical floor, he is alert and oriented x 3 in no distress, he has very poor oral intake he denies any complaints there is no fever or chills no headache or dizziness no chest pain no shortness of breath no palpitation no cough no nausea or vomiting no abdominal pain no diarrhea no blood in the stools no burning with urination no frequency or urgency and no hematuria, there is no weakness or numbness in any of the extremities no change in vision speech or gait. Nutrition are recommending appetite stimulant patient will be started on Megace. On 12/28/2020 Patient was seen and examined on the medical floor, he is alert and oriented x 3 in no distress, he denies any complaints there is no fever or chills no headache or dizziness no chest pain no shortness of breath no palpitation no cough no nausea or vomiting no abdominal pain no diarrhea no blood in the stools no burning with urination no frequency or urgency and no hematuria, patient has very poor oral intake, recommendation by nutrition is to start a Dobbhoff tube with enteral feeding will proceed as above. On 12/29/2020 Patient was seen and examined on the medical floor, he is alert and oriented x 3 in no distress, he denies any complaints there is no fever or chills no headache or dizziness no chest pain no shortness of breath no palpitation no cough no nausea or vomiting no abdominal pain no diarrhea no blood in the stools no burning with urination no frequency or urgency and no he maturia, patient was unable to tolerate Dobbhoff tube he pulled it out last night, gastroenterology are following, will monitor patient oral intake and decide whether there is an indication for a PEG tube if patient agrees for theat. Objective - Vital Signs Vital signs: Vital Signs Temp 97.5 F L 12/29/20 12:45 Pulse 87 12/29/20 12:45 Resp 20 12/29/20 12:45 BP 111/73 12/29/20 12:45 Pulse Ox 97 12/29/20 12:45 Intake & Output 12/28/20 12/29/20 12/29/20 18:59 06:59 18:59 Intake Total 90 270 Output Total 850 150 Balance -760 120 Weight 52.5 kg 43.5 kg Intake: Oral 270 Tube Feeding 90 Output: Urine 850 150 Other: Voiding Method Urinal Urinal # Voids 1 2 1 # Bowel Movements 1 1 - Exam In general patient is alert and oriented x3 in no distress HEENT head normocephalic and atraumatic Neck is supple no JVD no goiter no lymphadenopathy no carotid bruit Chest examination is clear to auscultation no crackles no wheezing Cardiac exam reveals regular heart sounds S1 and S2 no gallops no murmurs Abdomen is soft nontender no organomegaly with normal bowel sounds Extremity exam reveals no edema no cyanosis or clubbing Neurological examination reveals no gross focal deficits - Labs CBC & Chem 7: 12/29/20 07:29 12/29/20 07:29 Labs: Abnormal Lab Results - Last 24 Hours (Table) 12/28/20 12/29/20 12/29/20 Range/Units 23:37 07:29 07:29 WBC 14.8 H (3.8-10.6) k/uL RBC 2.93 L (4.30-5.90) m/uL Hgb 8.5 L (13.0-17.5) gm/dL Hct 26.9 L (39.0-53.0) % RDW 20.3 H (11.5-15.5) % Plt Count 139 L (150-450) k/uL Neutrophils # (Manual) 13.40 H (1.3-7.7) k/uL Lymphocytes # (Manual) 0.74 L (1.0-4.8) k/uL Nucleated RBCs 1 H (0-0) /100 WBC Chloride 115 H (98-107) mmol/L Carbon Dioxide 21 L (22-30) mmol/L BUN 59 H (9-20) mg/dL Creatinine 2.18 H (0.66-1.25) mg/dL Glucose 101 H (74-99) mg/dL POC Glucose (mg/dL) 112 H (75-99) mg/dL Alkaline Phosphatase 136 H (38-126) U/L Total Protein 5.9 L (6.3-8.2) g/dL Albumin 2.8 L (3.5-5.0) g/dL Assessment and Plan Plan: 1. COVID-19 infection 2. Bilateral interstitial pneumonia, possibly related to COVID-19, however bacterial superimposed infection cannot be ruled out 3. Evidence of sepsis, with leukocytosis, hypotension, and elevated lactic acid 4. Acute on chronic renal failure, creatinine on admission in August was 1.5 nephrology consultation requested 5. Severe hyperkalemia 6. Underlying history of COPD 7. Recent history of stroke in August 2020 8. Underlying history of hypertension 9. Underlying history of hyperlipidemia 10. Underlying history of coronary artery disease with previous history of kiran nary artery bypass graft surgery 11. Underlying history of multiple lumbar compression vertebral fractures. 12. Previous history of anemia and history of GI bleed, Hgb down to 7.7 will consult GI At this time patient is admitted to telemetry floor He received IV fluid boluses He was started on IV heparin and IV Cardizem drip He was started on IV antibiotic Rocephin and Zithromax He was started on steroids prednisone 40 mg daily Pulmonary, nephrology, infectious disease and cardiology consultation requested. Prognosis is poor due to advanced age, severity of illness, and multiple underlying medical conditions
--- NOTE | 2020-12-29 18:12 | PN ---
PROGRESS NOTE DATE OF SERVICE: 12/29/2020 REASON FOR FOLLOWUP: Serratia marcescens pneumonia. INTERVAL HISTORY: Patient is currently afebrile. Patient is breathing comfortably. Denies any chest pain. No worsening cough. No nausea, no vomiting. No abdominal pain or diarrhea. The patient's oral intake remains to be poor. However, no choking on food has been reported by the nursing staff. PHYSICAL EXAMINATION: Blood pressure 111/73 with a pulse of 87, temperature 97.5. He is 96% oxygen. General description is an elderly male lying in bed in no distress. Respiratory system: Unlabored breathing. Coarse rhonchi and crackles at the bases. HEART: S1, S2. Regular rate and rhythm. ABDOMEN: Soft, no tenderness. LABS: Hemoglobin 8.5, white count 14.8. BUN of 29, creatinine 2.1. DIAGNOSTIC IMPRESSION AND PLAN: Patient admitted to the hospital with pneumonia. Sputum has been positive for Serratia and Pseudomonas, covered with cefepime to continue while monitoring clinical course closely. Continue supportive care. MMODL / IJN: [id number] / MTDD
--- NOTE | 2020-12-30 08:18 | XR ---
EXAMINATION TYPE: XR chest 1V portable DATE OF EXAM: 12/30/2020 COMPARISON: Chest x-ray 12/28/2020 HISTORY: Covid pneumonia TECHNIQUE: Single frontal view of the chest is obtained. FINDINGS: Pleural parenchymal changes show similar appearance, there may be more confluent density i n the right lung as compared to prior exam. Interstitium remains increased. Heart remains enlarged, p atient is post median sternotomy. There is no evident pneumothorax. There are overlying artifacts. IMPRESSION: There may be worsening airspace disease.
[2020-12-30] MEDS: METOPROLOL TARTRATE 50 MG TAB PO SCH ×2 (09:11→21:37)
[2020-12-30] MEDS: CHOLECALCIFEROL 25 MCG (1000 IU) TABLET PO SCH (09:11)
[2020-12-30] MEDS: ASCORBIC ACID 500 MG TAB PO SCH (09:11)
[2020-12-30] MEDS: dexAMETHasone 2 MG TAB PO SCH (09:11)
[2020-12-30] MEDS: ZINC SULFATE 220 MG CAP PO SCH (09:11)
[2020-12-30] MEDS: ASPIRIN 81 MG PO SCH (09:11)
[2020-12-30] MEDS: FUROSEMIDE 20 MG TAB PO SCH (09:11)
[2020-12-30] MEDS: ENOXAPARIN 30 MG/0.3 ML SYRINGE SQ SCH (09:12)
[2020-12-30] MEDS: MEGESTROL 400 MG/10 ML CUP PO SCH ×2 (09:13→21:37)
[2020-12-30] MEDS: CEFEPIME 1 GM in SODIUM CHLORIDE 0.9% 50 ML IVPB SCH ×2 (09:13→21:36)
--- NOTE | 2020-12-30 09:48 | P.PN ---
Subjective Progress Note Date: 12/30/20 COPD exacerbation, A. fib with RVR, pneumonia This is a pleasant 89-year-old gentleman who follows with Dr. Boss as his primary care provider. He has history of hypertension, CVA, coronary artery disease with previous coronary artery bypass grafting, COPD, seizure disorder, previous smoker, lung cancer. He presented to the emergency room yesterday with complaints of increasing shortness of breath, chest tightness and wheezing. He was found to be in atrial fibrillation with a rapid ventricular response. Chest x-ray revealed bilateral interstitial pneumonia. Cardiomegaly. Small right pleural effusion and pleural reaction at the right lung base. White count 17.4. Hemoglobin 9.1. Sodium 139. Potassium 5.4. Creatinine 3.75. Presenting creatinine was 5.09. Pro-calcitonin greater than 100. Troponin 0.105. C- reactive protein 58.6. Andres virus positive. He is seen today in consultation on the selective care unit. The patient is a poor historian. Unable to determine when his symptoms started. He is currently resting fairly comfortably in bed. Awake and alert in no acute distress. Maintaining O2 saturations in the high 90s on 3 L/m per nasal cannula. Afebrile. Slightly tachycardic. Ultrasound of the kidneys revealed no hydronephrosis or nephrolithiasis bilaterally. His initiated on a Cardizem drip at 10 mg per hour, heparin drip and antibiotics in the form of ceftriaxone and azithromycin. His initiated on Decadron 10 mg IV daily. Progress note dated 12/17/2020. 89-year-old black male, seen by our nurse practitioner yesterday in consultation. The patient has a history of hypertension, CVA, coronary disease, previous bypass grafting, COPD, seizure disorder, and lung cancer. The patient apparently presented to the emergency department with complaints of increasing shortness of breath, chest tightness, and wheezing. He was found to have atrial fibrillation with RVR, and also was positive for coronavirus infection. The patient seems be recently comfortable this time. He is on 3 L. Saturations are 97%. Heart rate 86. Respiratory rate 18. No audible wheezing, use of accessory muscles, or conversational dyspnea. The patient is not a particularly good historian. White count 15.8, hemoglobin 7.9, hematocrit 24.8, and platelet count 120,000. PTT is 37.8. Sodium 141, potassium 3.4, chlorides 104, CO2 25, anion gap 12, BUN 97, and creatinine 2.67. Initial lactic acid 2.2. Repeat lactic acid 1.1. Chest x-ray shows bilateral interstitial pneumonia with cardiomegaly. There is a small right-sided pleural effusion. Progress note dated 12/18/2020. 89-year-old black male, seen in consultation 2 days ago. I saw the patient yesterday in follow-up. The patient has a history of essential hypertension, CVA, coronary artery disease, previous bypass grafting, COPD, seizure disorder, and lung cancer. The patient presented to the emergency department with complaints of increasing shortness of breath, chest tightness and wheezing, and was found to have atrial fibrillation with RVR, and also tested positive for coronavirus infection. Currently, the patient appears to be relatively comfortable. He is on 3 L nasal cannula, and his saturations are 100%. Blood pressure 112/72, heart rate 89, respiratory rate 18, and his temperature is 97.8. Labs show a white count of 14.6, hemoglobin 7.8, hematocrit 25.6, and platelet count 121,000. D-dimer is 2.0. Sodium 141, potassium 3.8, chlorides 108, CO2 26, anion gap 7, BUN 76, creatinine 2.19. No recent chest x-ray to review. The patient is seen today 12/19/2020 in follow-up on the cardiac floor. He is currently resting comfortably in bed. Awake, alert and in no acute distress. He is maintaining O2 saturation in the 90s on 3 L/m per nasal cannula. Lactated Ringer's at 75 ML's per hour. He's been afebrile. Hemodynamically stable. Chest x-ray reveals evidence of congestive heart failure and underlying COPD. Chronic pleural reaction. Blood cultures reveal no growth. White count 12.4. Hemoccult was 7.7. Platelets 113. Sodium 141. Potassium 4.0. Creatinine 2.09. ProBNP 36,700. He remains on Decadron, Lovenox, vitamin supplements. Antibiotics in the form of Unasyn. The patient is seen today 12/20/2020 in follow-up on the selective care unit. He is currently resting comfortably in bed. Awake and alert in no acute distress. Rectal maintaining O2 saturations in the 90s on 3 L/m per nasal cannula. She's been afebrile. Hemodynamically stable. Blood cultures reveal no growth. No new labs today. He remains on Decadron, Lovenox, vitamin supplements. Antibiotics in the form of Unasyn. Lactated Ringer's at 75 ML's per hour. The patient is seen today 12/21/2020 in follow-up on the selective care unit. He has currently resting comfortably in bed. Awake and alert in no acute distress. He is on 2 L/m per nasal cannula. O2 saturation 98%. White count 17.0. Hemoglobin 8.9. Sodium 140. Potassium 3.7. Creatinine 1.92. He is continued on Unasyn. Remains on Decadron, Lovenox, vitamin supplements. Echocardiogram reveals moderate impaired left ventricular systolic function with ejection fraction 40-45%. Severe pulmonary hypertension. The patient is seen today 12/22/2020 in follow-up on the selective care unit. He is currently resting comfortably in bed. Maintaining O2 saturations in the 90s on 2 L/m per nasal cannula. Chest x-ray shows cardiomegaly with chronic parenchymal changes with right greater than left bilateral multifocal opacities and tiny bilateral pleural effusions. No change compared to previous. 0.9 normal saline @ 20 ML's per hour. He is continued on Decadron, Lovenox, vitamin supplements. Antibiotics in the form of Unasyn. Blood cultures reveal no growth. White count 18.5. Hemoglobin 8.8. Lymphocytes 0.4. Sodium 141. Potassium 3.9. Creatinine 1.82. The patient is seen today 12/23/2020 in follow-up on the selective care unit. He is awake and alert in no acute distress. Resting quite comfortably in bed. Maintaining O2 saturations in the 90s on 4 L/m per nasal cannula. No IV fluids. Pro-calcitonin down to 3.6. He remains on Unasyn. He remains on dexamethasone, Lovenox, vitamin supplements. Transitioned to oral diuretics. 12/24 2020, the patient is being seen for a follow-up. The patient remains on 4 L of [id number] cannula to maintain a saturation above 90%. Is a case of COVID-19 related pneumonia with secondary story failure. His superinfection is also suspected knowing that the patient's pro-calcitonin level was elevated significantly. The most recent chest x-ray showing diffuse but the pulmonary infiltrates right more than left. The pro-calcitonin level is down to 3.6 from 12/22/2020. The white cell count of 18.5 with a hemoglobin of 8.9. Platelet count is stable at 178. The patient continues to have some lymphopenia. Creatinine is down to 1.8 with the rest of the electrodes being within normal limits. She remains on empiric antibiotic coverage with IV Unasyn initially and later on Augmentin. He is on Decadron 4 mg by mouth daily. He is on Lasix 20 mg by mouth daily and he is also on Lovenox 30 mg subcu for DVT prophylaxis. 12/25/2020, the patient is being seen for a follow-up. He is a case of COVID-19 infection/pneumonia with superinfection, possibly a pneumonia based on elevated calcitonin level. The chest x-ray was showing patchy bilateral infiltrates and cardiomegaly. This was the x-ray from yesterday. Based on this, the patient was kept on a combination of Decadron currently on 2 mg and the patient is also on a course of Augmentin 875 mg twice a day after being treated with IV Unasyn. This morning, the patient is on oxygen on 4 L with a pulse ox of 94%. Remains on Lovenox 30 mg subcu for DVT prophylaxis. With that was of 14.7. Hemoglobin dropped down to 6.8 with a platelet count of 172. Coagulation profile has been adequate from prior evaluations. His creatinine is up to 2.27 with a BUN of 62 and the patient had a follow-up pro-calcitonin level of 3.6. Stool for occult blood was also negative. Units of packed RBC has already been ordered for this patient. 12/26/2020, the patient essentially looks the same as yesterday and he remains on 5 L of oxygen by nasal cannula. His swallow mechanism has been suspected to be 4 and was suspected felt aspiration and for that reason we sent him for a swallow evaluation and the patient is having a modified barium swallow done today. He is a case of COVID-19 related pneumonia. His pro calcitonin level was elevated and is improving and is down to 1.53 also and we suspected superinfection and for that reason the patient was given antibiotics initially Zosyn and later on Augmentin. His chest x-ray from today is showing interstitial infiltrates bilaterally more so on the right where the right lung is essentially infiltrated in the left upper lobe was also infiltrated in the left lower lobe essentially spared. He is receiving Decadron at a dose of 2 mg by mouth daily. He is also on Lovenox and we had to stop it because of a drop in hemoglobin down to 6.8 and this can be essentially resumed as the patient has no evidence of bleeding. He received a unit of packed RBC and hemoglobin responded nicely and felt to 9.2. His creatinine is stable at 2.1 which is improved compared to yesterday. 12/27/2020 the patient remains on oxygen at 5 L which is essentially the same as yesterday. With suspected aspiration. With a bedside swallow evaluation following that the patient was given a modified barium swallow and the patient was found to have some oral and pharyngeal phases that were appropriate and there was appropriate for propagation up with material. There was normal mastication. No evidence of any aspiration. As such, the patient was cleared. At this point in time, the patient is still being treated for a combination of COVID-19 related pneumonia with a suspected superinfection. The patient remains on Augmentin leg grams twice a day. Sputum sample was sent and the patient sputum sample came back positive for gram-negative bacillus including sedation marcescens and this microorganism was resistant to Augmentin. The patient is also on Decadron 2 mg by mouth daily and the patient is also taking Lovenox 30 mg subcu on a daily basis. Chest x-ray findings and essentially unchanged the patient has diffuse interstitial infiltrates bilaterally more so on the right compared to the left. His d-dimer is at 4.22. Creatinine is stable at 2.1 . He continues to have some congested cough. His pro calcitonin level has dropped down to 1.53. As stated, chest x-ray findings are essentially unchanged and stable. He remains quite debilitated at this point in time. He passed a swallow evaluation. 12/28/2020, the patient is being seen for a follow-up. He remains on 5 L of oxygen by nasal cannula. His chest x-ray was showing diffuse pulmonary infiltrates most on the right compared to the left. Noted is a case of COVID-19 related pneumonia in his sputum also showed Serratia and subsequent culture showed Pseudomonas. Both of them are sensitive to Levaquin. Nevertheless, due to presence of pseudomonas, would like to cover this patient with a broader spectrum antibiotics with IV cefepime. Otherwise, the patient is essentially t he same as yesterday. White cell count is elevated with a white cell count of 16. Hemoglobin stable at 8.7 and the patient has not had any further episodes of GI bleeds. His creatinine is also stable at 2.04 with a BUN of 58 and the patient's serum bicarb is 22. Electrodes are normal. His d-dimer is at 5.88. LDH level is at 1259 which is slightly improved compared to earlier studies. He is weak. His debilitated. Oral intake is quite diminished. He has a congested cough. Heart is using his incentive spirometer. He did pass a swallow evaluation. He remains on Decadron. He remains on Lovenox 30 mg subcutaneous for DVT prophylaxis. This was restarted yesterday. 12/29/2020 the patient is on 8 L of oxygen by nasal cannula. Dobbhoff insertion catheter was unsuccessful. I switched him to a NG tube catheter which she was keeping it on till evening and later on he pulled it out because of discomfort. As such, enteral feeding was also discontinued. He is going back to his regular oral habits which is essentially poor at this point in time. There is also a concern of aspiration. He did pass a swallow evaluation nevertheless, he is eating habits has been poor and his caloric intake has been also poor. Aspiration is to be given for PEG tube insertion. GI is on the case. He is known to have also pseudomonas in his sputum in addition to Serratia. I put him on IV cefepime yesterday. He does have pneumonia which is probably a combination of gram-negative and COVID-19 related pneumonia. On his blood work, the patient has a white cell count 14.8. His hemoglobin is at 8.5. He has a creatinine of 2.0 which is stable compared to yesterday and the sodium level is at 144. Has implemented markings from few days back showed an LDH level of 1259. His long-term prognosis poor. He is quite debilitated. He is 89 years of age. He has multiple medical problems and comorbidities and he has been significantly weak and debilitated especially with this ongoing COVID-19 pneumonia with superinfection with gram-negative bacteria. 2020 the patient is on oxygen at 10 L. As mentioned earlier, attempt to keep the patient has failed and the patient pulled out his NG tube and currently he is taken oral intake and modest amounts. Meanwhile, the patient is currently on 10 L of oxygen by nasal cannula. Repeat chest x-ray from today is showing bilateral pulmonary infiltrates right more than left and there is obvious interval worsening in the pulmonary infiltration on the right and there is obvious interval worsening of airspace disease bilaterally and this is most likely consistent with COVID-19 related pneumonia. His white cell count is at 14.8 with a hemoglobin of 8.5. His creatinine is still stable at 2.1. Inflammatory markers are still pending from today. LDH from few days back was at 1259. He remains on IV cefepime. He remains on Decadron and the dose will be adjusted up to 6 mg IV every 12 hours specially with his interval progression of the bilateral pulmonary infiltrates. His hemoglobin is at 8.5. He is quite lethargic and debilitated. He sleeps most of the time. His breathing seems to be more labored compared to yesterday and he seems to be in mild degree of respiratory distress at this point in time. CODE STATUS is full and obviouslyto be addressed pressure with his interval progression and worsening of the pneumonia. Objective - Vital Signs Vital signs: Vital Signs Temp 97.8 F 12/30/20 08:54 Pulse 102 H 12/30/20 08:54 Resp 20 12/30/20 08:54 BP 123/81 12/30/20 08:54 Pulse Ox 93 L 12/30/20 08:55 Intake & Output 12/29/20 12/30/20 12/30/20 18:59 06:59 18:59 Intake Total 420 150 Output Total 450 150 Balance -30 0 Intake: Oral 420 Blood Product 150 Output: Urine 450 150 Other: Voiding Method Urinal Urinal # Voids 1 1 # Bowel Movements 1 - Exam No acute distress, pleasant 89-year-old gentleman, poor historian, currently on 10 L nasal cannula, with saturations at 95%. No obvious respiratory distress. He looks quite lethargic and he looks significantly debilitated at this point in time. He is laying down on his right side. Doesn't do a lot of activity. Does communicate more labored compared to yesterday and the patient is more tachypneic. HEENT examination is grossly unremarkable. Neck supple. Full range of motion. No adenopathy thyromegaly or neck vein distention. Cardiovascular examination reveals regular rhythm rate. S1-S2 normal. No S3 or S4. No discernible murmur noted. Heart rate 105 bpm. Lungs reveal scattered rhonchi and crackles. Breath sounds equal bilaterally. He is not taking deep breaths. No distinct wheezes noted. Abdomen soft bowel sounds are heard. No masses or tenderness. Extremities are intact. No cyanosis clubbing or edema. Skin is without rash or lesion. Neurologic examination is brief but nonfocal. - Labs CBC & Chem 7: 12/29/20 07:29 12/29/20 07:29 Labs: Abnormal Lab Results - Last 24 Hours (Table) 12/29/20 Range/Units 07:29 Procalcitonin 2.27 H (0.02-0.09) ng/mL Assessment and Plan Plan: 1 Acute hypoxemic respiratory failure secondary to acute COVID-19 pneumonia, . The patient has also grown Serratia and Pseudomonas and the patient and his sputum. His antibiotics have been modified into IV cefepime. Showing interval worsening of the consolidation and airspace disease involving the right lung and the patient is currently up to 10 L of Oxymizer nasal cannula. In my opinion, this is progression of COVID-19. Patient is covered with IV cefepime regarding gram-negative pneumonia 2. We'll repeat chest x-ray in the morning. We'll repeat a metabolic markers. We'll obtain LDH, CRP and will also obtain a pro- calcitonin level. Aspiration precautions. He is requiring assistance for activities such as feeding. His white cell count from yesterday was 14. Awaiting follow-up lab for today. 2 Leukocytosis, pro-calcitonin greater than 100 secondary to above, currently down to 1.53 3 Acute exacerbation of systolic congestive heart failure 4 Acute renal failure with a history of chronic renal failure secondary to nephrosclerosis, creatinine stable and awaiting follow-up labs from today 5 Atrial fibrillation with a rapid ventricular response, currently atrial tachycardia, on beta blockers 6 Recent CVA 7 Troponin leak 8 Coronary artery disease with previous history of coronary artery bypass grafting 9 Chronic obstructive pulmonary disease 10 Remote history of lung cancer, details of which are unclear 11 Former smoker 12 chronic anemia, multifactorial. No signs of any acute GI bleed. Hemoglobin is stable for now. Plan: Clinically worsen the patient has obvious progression of his pneumonia with diff use airspace disease involving the right lung. His oxygen requirement has gone up to 10 L and the patient seems to be clinically more labored in terms of his breathing. Obviously there is interval progression. We'll recheck inflammatory markers. Recheck the pro-calcitonin level. Titrate FiO2 to maintain a saturation above 90%. Nevertheless, this patient will ultimately need a CODE STATUS change. He will not survive intubation mechanical ventilation. I strongly urge a CODE STATUS change in this patient. stable with FiO2 to maintain saturation above 90% currently on 10 L per minute nasal cannula Continue IV cefepime Continue Decadron the Decadron dose to 6 medical grams IV every 12 hours Recheck pro-calcitonin level Recheck labs Obtain a follow-up chest x-ray for morning Hemoglobin is stable and there is no further bouts of GI bleed Monitor renal function Monitor mental status Lovenox, vitamin supplements swallow evaluation the less nevertheless, his oral intake is minimal and a Dobbhoff tube was unsuccessful and the patient had an NG tube which ultimately refused and he pulled out. GI is on the case. Consider PEG tube insertion. He remains extremely debilitated and obviously carries a poor prognosis. We will continue to follow , is a very poor prognosis
[2020-12-30 10:36] LABS: Anisocytosis Moderate; HCT 27.1 % (39.0-53.0); HGB 8.6 gm/dL (13.0-17.5); Hypochromasia Moderate; MCH 29.5 pg (25.0-35.0); MCHC 31.6 g/dL (31.0-37.0); MCV 93.1 fL (80.0-100.0); Macrocytosis Slight; Mean Platelet Volume 11.1; Platelet Count 115 k/uL (150-450); Poikilocytosis Slight; RBC 2.91 m/uL (4.30-5.90); RDW 20.7 % (11.5-15.5); WBC 12.7 k/uL (3.8-10.6)
[2020-12-30 10:51] LABS: Albumin 2.6 g/dL (3.5-5.0); Calcium 8.4 mg/dL (8.4-10.2); Potassium 4.3 mmol/L (3.5-5.1); Total Bilirubin 0.4 mg/dL (0.2-1.3); Total Protein 5.7 g/dL (6.3-8.2)
--- NOTE | 2020-12-30 11:13 | PN ---
PROGRESS NOTE DATE OF SERVICE: 12/30/2020 The patient is an 89-year-old male admitted to hospital with COVID-19 pneumonia/acute respiratory failure. During the course of his hospitalization, his oral intake has been significantly decreased and we were consulted for Dobbhoff tube placement yesterday. However, the patient refused to have the Dobbhoff tube placement yesterday. As per the nursing staff, he was eating a little bit better yesterday and had almost consumed about 30-40% of his meals. This morning his shortness of breath has been much worse and patient is somewhat irritable. He is complaining of shortness of breath. He refused to eat this morning. He denies any abdominal pain. PHYSICAL EXAMINATION: He is somewhat uncomfortable in respiratory distress. VITAL SIGNS: Blood pressure 120/81, pulse rate 102, temperature 97.8. HEENT examination unremarkable. Conjunctivae pink, sclerae anicteric. Oral cavity no lesions. NECK: No JVD. Chest and heart were not auscultated. ABDOMEN was soft. It was nontender. Bowel sounds are positive. No organomegaly. NEURO: He is alert and oriented x3. LABS: From yesterday, WBC 14.8, hemoglobin 8.5, platelets 130. Chest x-ray done this morning did show worsening airspace disease. IMPRESSION: 1. COVID-19 pneumonia. He was on 5 L of oxygen. This morning, patient's respiratory status appears to be worse than yesterday. Dr. Ambriz following the patient closely. 2. Decreased oral intake related to COVID-19 infection. The patient is being encouraged to increase his oral intake. Once again, I discussed with the patient regarding the Dobbhoff tube placement but he refused at this time. He is not a candidate for a PEG tube placement given his overall respiratory condition. 3. History of hypertension. RECOMMENDATIONS: 1. Continue with symptomatic and supportive care. 2. Discussed with the nursing staff to provide with him a hospitality aide to help with his meals. 3. We will hold off on Dobbhoff tube placement. 4. Not a candidate for a PEG tube placement at the present time given his overall respiratory condition. 5. Will follow with you closely. Thank you for this consultation. MMODL / IJN: [id number] /
--- NOTE | 2020-12-30 12:37 | PN ---
PROGRESS NOTE Patient is seen for followup for chronic kidney disease and acute kidney injury. He is currently lying in bed. He is comfortable. Denies any significant complaints. PHYSICAL EXAMINATION: Blood pressure was 123/81, heart rate 102 per minute he is afebrile. Examination shows no evidence of edema lower extremities. 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 Patient is moving all four extremities. Lungs and heart are not examined. LAB: Show sodium 140, potassium 4.3, chloride 112, CO2 is 21, BUN 60, serum creatinine 2.1, hemoglobin 8.6 g/dL. ASSESSMENT: 1. Acute kidney injury, acute tubular necrosis, currently improved. 2. Chronic kidney disease, stage 4. Baseline creatinine appears to be around 2 mg/dL. 3. COVID pneumonia, fairly stable. 4. 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 5. Hypokalemia secondary to diuresis status post replacement, currently within range. PLAN: Continue with Aranesp. Continue low-dose loop diuretics. Encourage increased oral intake. MMODL / IJN: [id number] /
--- NOTE | 2020-12-30 13:06 | P.PN ---
Subjective Progress Note Date: 12/30/20 Fitz Blue, is an 89 year old male who presented to [facility] emergency room with a chief complaint of worsening shortness of breath, patient stated that he started having shortness of breath on the day of presentation that progressed to significant breathing difficulty EMS were sushma smith, they found patient to be in significant respiratory distress he was started on nonrebreather mask and was treated with IV Solu-Medrol and DuoNeb updrafts and was brought in to [facility] emergency room. In the emergency room patient was evaluated, his vital examination on presentation revealed a temperature of 98.6 pulse 142 respiration 18 blood pressure 99/78 pulse ox 94% on room air, laboratory data on presentation revealed a white blood count of 13.5 hemoglobin 10.5 platelet count 134 d-dimer 3.88, sodium 140 potassium 5.3 chloride 106 CO2 16 BUN 19 9 creatinine 5.09 glucose level was 136 plasma lactic acid was 3.5 troponin level was elevated at 0.105 C-reactive p rotein 58.6 Procalcitonin more than 100 and coronavirus PCR was positive. Chest x-ray was done in the emergency room and revealed bilateral interstitial pneumonia, cardiomegaly, small right pleural effusion and pleural reaction , EKG was done in the emergency room and revealed atrial fibrillation with rapid ventricular response and nonspecific ST abnormality . Patient was admitted to telemetry floor for further evaluation and treatment. Patient was admitted to [facility] in August 2020 after having a stroke, he was discharged to [facility] on the [facility] for rehabilit ation and was discharged home about 6 weeks ago. His past medical history is also significant for hypertension, hyperlipidemia, coronary artery disease with history of coronary artery bypass graft surgery, history of COPD, history of pulmonary hypertension, history of multiple lumbar compression vertebral fractures, history of anemia, history of carotid stenosis, history of osteoarthritis, and history of protein calorie malnutrition. On 12/17/2020 patient was seen and examined on the medical floor he is alert and oriented 3 in no apparent distress he is complaining of nausea otherwise he de nies any complaints there is no fever or chills no headache or dizziness no chest pain no shortness of breath no cough no vomiting no abdominal pain no diarrhea no blood in the stools no burning with urination no frequency or urgency and no hematuria. Kidney function has improved significantly since yesterday, otherwise no change in condition. On 12/18/2020 patient was seen and examined on the medical floor he is alert and oriented 3 in no apparent distress he is complaining of nausea otherwise he denies any complaints there is no fever or chills no headache or dizziness no chest pain , he has some shortness of breath no cough no vomiting no abdominal pain no diarrhea no blood in the stools no burning with urination no frequency or urgency and no hematuria. Kidney function has improved significantly since yesterday, otherwise no change in condition. On 12/19/2020 patient was seen and examined on the medical floor he is alert and oriented 3 in no apparent distress he is complaining of nausea otherwise he denies any complaints there is no fever or chills no headache or dizziness no chest pain , he has some shortness of breath no cough no vomiting no abdominal pain no diarrhea no blood in the stools no burning with urination no frequency or urgency and no hematuria. Kidney function has improved significantly since yesterday, otherwise no change in condition. BNP is significantly elevated, patient still having shortness of breath, will check Echocardiogram and consult cardiology. On 12/20/2020 patient was seen and examined on the medical floor he is alert and oriented 3 in no apparent distress he is complaining of nausea otherwise he denies any complaints there is no fever or chills no headache or dizziness no chest pain , he has some shortness of breath no cough no vomiting no abdominal pain no diarrhea no blood in the stools no burning with urination no frequency or urgency and no hematuria. Kidney function has improved significantly since yesterday, otherwise no change in condition. BNP is significantly elevated, patient still having shortness of breath, will check Echocardiogram and consult cardiology. patient was started on IV lasix, awaiting Echo. On 12/21/2020 patient was seen and examined on the medical floor he is alert and oriented 3 in no apparent distress he is complaining of nausea otherwise he denies any complaints there is no fever or chills no headache or dizziness no chest pain , he has some shortness of breath no cough no vomiting no abdominal pain no diarrhea no blood in the stools no burning with urination no frequency or urgency and no hematuria. Kidney function has improved significantly since yesterday, otherwise no change in condition. BNP is significantly elevated, patient still having shortness of breath, will check Echocardiogram and consult cardiology. patient was started on IV lasix, repeat CXR ordered for tomorrow. On 12/22/2020 patient was seen and examined on the medical floor he is alert and oriented 3 in no apparent distress he is complaining of nausea otherwise he denies any complaints there is no fever or chills no headache or dizziness no chest pain , he has some shortness of breath no cough no vomiting no abdominal pain no diarrhea no blood in the stools no burning with urination no frequency or urgency and no hematuria. Kidney function has improved significantly since yesterday, otherwise no change in condition. BNP is significantly elevated, patient still having shortness of breath, will check Echocardiogram and consult cardiology. patient was started on IV lasix, repeat CXR ordered for tomorrow. at this time will switch to oral lasix and oral Decadron continue to monitor, possi ble discharge in the next 1-2 days. On 12/23/2020 Patient was seen and examined on the medical floor, he is alert and oriented x 3 in no distress, he denies any complaints there is no fever or chills no headache or dizziness no chest pain no shortness of breath no palpitation no cough no nausea or vomiting no abdominal pain no diarrhea no blood in the stools no burning with urination no frequency or urgency and no hematuria, there is no weakness or numbness in any of the extremities no change in vision speech or gait. White blood count is still significantly elevated pro calcitonin is elevated chest x-rays revealing some worsening infectious disease following awaiting further recommendation will continue to monitor On 12/24/2020 Patient was seen and examined on the medical floor, he is alert and oriented x 3 in no distress, he denies any complaints there is no fever or chills no headache or dizziness no chest pain no shortness of breath no palpitation no cough no nausea or vomiting no abdominal pain no diarrhea no blood in the stools no burning with urination no frequency or urgency and no hematuria, there is no weakness or numbness in any of the extremities no change in vision speech or gait. White blood count is still significantly elevated pro calcitonin is elevated chest x-rays revealing some worsening opacities, infectious disease following awaiting further recommendation will continue to monitor, today Will decrease dose of Decadron and continue to monitor On 12/25/2020 Patient was seen and examined on the medical floor, he is alert and oriented x 3 in no distress, he denies any complaints there is no fever or chills no headache or dizziness no chest pain no shortness of breath no palpitation no cough no nausea or vomiting no abdominal pain no diarrhea no blood in the stools no burning with urination no frequency or urgency and no hematuria, there is no weakness or numbness in any of the extremities no change in vision speech or gait. Hemoglobin is down to 6.8 today 1 unit of red blood cell transfusion was ordered will follow closely On 12/27/2020 Patient was seen and examined on the medical floor, he is alert and oriented x 3 in no distress, he has very poor oral intake he denies any complaints there is no fever or chills no headache or dizziness no chest pain no shortness of breath no palpitation no cough no nausea or vomiting no abdominal pain no diarrhea no blood in the stools no burning with urination no frequency or urgency and no hematuria, there is no weakness or numbness in any of the extremities no change in vision speech or gait. Nutrition are recommending appetite stimulant patient will be started on Megace. On 12/28/2020 Patient was seen and examined on the medical floor, he is alert and oriented x 3 in no distress, he denies any complaints there is no fever or chills no headache or dizziness no chest pain no shortness of breath no palpitation no cough no nausea or vomiting no abdominal pain no diarrhea no blood in the stools no burning with urination no frequency or urgency and no hematuria, patient has very poor oral intake, recommendation by nutrition is to start a Dobbhoff tube with enteral feeding will proceed as above. On 12/29/2020 Patient was seen and examined on the medical floor, he is alert and oriented x 3 in no distress, he denies any complaints there is no fever or chills no headache or dizziness no chest pain no shortness of breath no palpitation no cough no nausea or vomiting no abdominal pain no diarrhea no blood in the stools no burning with urination no frequency or urgency and no he maturia, patient was unable to tolerate Dobbhoff tube he pulled it out last night, gastroenterology are following, will monitor patient oral intake and decide whether there is an indication for a PEG tube if patient agrees for that. On 12/30/2020 Patient was seen and examined on the medical floor, he is alert and oriented x 3 in no distress, he denies any complaints there is no fever or chills no headache or dizziness no chest pain no shortness of breath no palpitation no cough no nausea or vomiting no abdominal pain no diarrhea no blood in the stools no burning with urination no frequency or urgency and no hematuria, dietitian is stating that patient is still having very low oral intake. I have discussed possibility of PEG tube with patient, at this time he is stating that he does not want a PEG tube and he is going to try to eat more, will continue to monitor closely. Objective - Vital Signs Vital signs: Vital Signs Temp 97.6 F 12/30/20 04:00 Pulse 74 12/30/20 04:00 Resp 22 12/30/20 04:00 BP 123/69 12/30/20 04:00 Pulse Ox 94 L 12/30/20 04:00 Intake & Output 12/29/20 12/30/20 12/30/20 18:59 06:59 18:59 Intake Total 420 150 Output Total 450 150 Balance -30 0 Intake: Oral 420 Blood Product 150 Output: Urine 450 150 Other: Voiding Method Urinal Urinal # Voids 1 1 # Bowel Movements 1 - Exam In general patient is alert and oriented x3 in no distress HEENT head normocephalic and atraumatic Neck is supple no JVD no goiter no lymphadenopathy no carotid bruit Chest examination is clear to auscultation no crackles no wheezing Cardiac exam reveals regular heart sounds S1 and S2 no gallops no murmurs Abdomen is soft nontender no organomegaly with normal bowel sounds Extremity exam reveals no edema no cyanosis or clubbing Neurological examination reveals no gross focal deficits - Labs CBC & Chem 7: 12/30/20 10:25 12/30/20 10:25 Labs: Abnormal Lab Results - Last 24 Hours (Table) 12/29/20 12/29/20 12/29/20 Range/Units 07: 07: 07:29 WBC 14.8 H (3.8-10.6) k/uL RBC 2.93 L (4.30-5.90) m/uL Hgb 8.5 L (13.0-17.5) gm/dL Hct 26.9 L (39.0-53.0) % RDW 20.3 H (11.5-15.5) % Plt Count 139 L (150-450) k/uL Neutrophils # (Manual) 13.40 H (1.3-7.7) k/uL Lymphocytes # (Manual) 0.74 L (1.0-4.8) k/uL Nucleated RBCs 1 H (0-0) /100 WBC Chloride 115 H (98-107) mmol/L Carbon Dioxide 21 L (22-30) mmol/L BUN 59 H (9-20) mg/dL Creatinine 2.18 H (0.66-1.25) mg/dL Glucose 101 H (74-99) mg/dL Alkaline Phosphatase 136 H (38-126) U/L Total Protein 5.9 L (6.3-8.2) g/dL Albumin 2.8 L (3.5-5.0) g/dL Procalcitonin 2.27 H (0.02-0.09) ng/mL Assessment and Plan Plan: 1. COVID-19 infection 2. Bilateral interstitial pneumonia, possibly related to COVID-19, however bacterial superimposed infection cannot be ruled out 3. Evidence of sepsis, with leukocytosis, hypotension, and elevated lactic acid 4. Acute on chronic renal failure, creatinine on admission in August was 1.5 nephrology consultation requested 5. Severe hyperkalemia 6. Underlying history of COPD 7. Recent history of stroke in August 2020 8. Underlying history of hypertension 9. Underlying history of hyperlipidemia 10. Underlying history of coronary artery disease with previous history of coronary artery bypass graft surgery 11. Underlying history of multiple lumbar compression vertebral fractures. 12. Previous history of anemia and history of GI bleed, Hgb down to 7.7 will consult GI At this time patient is admitted to telemetry floor He received IV fluid boluses He was started on IV heparin and IV Cardizem drip He was started on IV antibiotic Rocephin and Zithromax He was started on steroids prednisone 40 mg daily Pulmonary, nephrology, infectious disease and cardiology consultation requested. Prognosis is poor due to advanced age, severity of illness, and multiple underlying medical conditions
[2020-12-30] MEDS: ONDANSETRON 4 MG/2 ML VIAL IVP PRN (15:38)
--- NOTE | 2020-12-30 19:50 | PN ---
PROGRESS NOTE DATE OF SERVICE: 12/30/2020. REASON FOR FOLLOW UP: Serratia marcescens pneumonia. INTERVAL HISTORY: Patient is currently afebrile. The patient is breathing comfortably. Patient denies having any chest pain or shortness of breath. He did have some cough, not bringing up any sputum. No abdominal pain or diarrhea. EXAM: Blood pressure 117/52 with a pulse of 90. Temperature 97.5. He is 99% on 10 L high- flow oxygen. General description is an elderly male lying in bed in no distress. Respiratory system: Unlabored breathing, decreased intensity of breath sounds in the bases. No wheeze. Heart S1, S2. Regular rate and rhythm. Abdomen soft, no tenderness. LABS: Hemoglobin 8.7, white count 12.7, BUN of 60, creatinine is 2.15. DIAGNOSTIC IMPRESSION AND PLAN: Patient with Gram-negative pneumonia. Sputum is positive for Pseudomonas and Serratia. Patient is covered with cefepime. White count showing a downward trend. Continue antibiotics and monitor clinical course closely. MMODL / IJN: [id number] /
--- NOTE | 2020-12-31 07:47 | XR ---
EXAMINATION TYPE: XR chest 1V portable DATE OF EXAM: 12/31/2020 COMPARISON: Chest x-ray 12/30/2020 HISTORY: Follow up Covid TECHNIQUE: Single frontal view of the chest is obtained. FINDINGS: Bilateral airspace disease is again noted. Patient is post median sternotomy. Heart is enl arged. No evident pneumothorax or pleural effusion. IMPRESSION: Findings consistent with pneumonia. Cardiomegaly.
[2020-12-31] MEDS: MEGESTROL 400 MG/10 ML CUP PO SCH ×2 (08:31→20:37)
[2020-12-31] MEDS: ASCORBIC ACID 500 MG TAB PO SCH (08:31)
[2020-12-31] MEDS: CEFEPIME 1 GM in SODIUM CHLORIDE 0.9% 50 ML IVPB SCH ×2 (08:32→20:37)
[2020-12-31] MEDS: CHOLECALCIFEROL 25 MCG (1000 IU) TABLET PO SCH (08:32)
[2020-12-31] MEDS: ASPIRIN 81 MG PO SCH (08:32)
[2020-12-31] MEDS: FUROSEMIDE 20 MG TAB PO SCH (08:32)
[2020-12-31] MEDS: dexAMETHasone 2 MG TAB PO SCH (08:32)
[2020-12-31] MEDS: ZINC SULFATE 220 MG CAP PO SCH (08:33)
[2020-12-31] MEDS: METOPROLOL TARTRATE 50 MG TAB PO SCH ×2 (08:33→20:37)
[2020-12-31] MEDS: ENOXAPARIN 30 MG/0.3 ML SYRINGE SQ SCH (08:33)
--- NOTE | 2020-12-31 09:25 | PN ---
PROGRESS NOTE DATE OF DICTATION: December 31, 2020 Patient is an 89-year-old male with COVID-19 pneumonia admitted to hospital 2 weeks ago and has been having significantly decreased oral intake. Dobbhoff tube was unsuccessful. The patient refusing any tube placements at the present time. As per the nursing staff, his oral intake remains quite poor, but he has been able to eat small portions. He continues to remain extremely short of breath today. PHYSICAL EXAMINATION: Appears uncomfortable because of shortness of breath. VITAL SIGNS: Blood pressure of 160/72, pulse rate 94, respirations 24, and temperature 97.4. HEENT examination unremarkable. Conjunctivae pink. Sclerae anicteric. Oral cavity no lesions. NECK: No JVD. CHEST: auscultated. ABDOMEN: Soft, was nontender. EXTREMITIES: No pedal edema. NEURO: He is awake and oriented x3. LABS: WBC 12.7, hemoglobin 8.6, platelets 115, BUN is 60, creatinine 2.15. IMPRESSION: 1. Poor oral intake secondary to Covid 19 pneumonia. The patient refusing tube feeds either an NG tube/Dobbhoff tube or a PEG tube at the present time. 2. COVID-19 pneumonia. 3. Acute kidney injury. 4. Protein energy malnutrition. RECOMMENDATIONS: 1. Continue to encourage the patient regarding oral intake by providing 1 on 1 service and helping with feeding. 2. No plans on any Dobbhoff tube or a PEG tube placement at this time as patient continues to refuse. 3. We will follow with you. Thank you for this consultation. MMODL / IJN: [id number] /
[2020-12-31 09:32] LABS: Albumin 2.8 g/dL (3.5-5.0); C Reactive Protein 5.8 mg/dL (<1.0); Calcium 8.5 mg/dL (8.4-10.2); Potassium 3.9 mmol/L (3.5-5.1); Total Bilirubin 0.5 mg/dL (0.2-1.3); Total Protein 6.2 g/dL (6.3-8.2)
--- NOTE | 2020-12-31 09:45 | P.PN ---
Subjective Progress Note Date: 12/31/20 COPD exacerbation, A. fib with RVR, pneumonia This is a pleasant 89-year-old gentleman who follows with Dr. Boss as his primary care provider. He has history of hypertension, CVA, coronary artery disease with previous coronary artery bypass grafting, COPD, seizure disorder, previous smoker, lung cancer. He presented to the emergency room yesterday with complaints of increasing shortness of breath, chest tightness and wheezing. He was found to be in atrial fibrillation with a rapid ventricular response. Chest x-ray revealed bilateral interstitial pneumonia. Cardiomegaly. Small right pleural effusion and pleural reaction at the right lung base. White count 17.4. Hemoglobin 9.1. Sodium 139. Potassium 5.4. Creatinine 3.75. Presenting creatinine was 5.09. Pro-calcitonin greater than 100. Troponin 0.105. C- reactive protein 58.6. Andres virus positive. He is seen today in consultation on the selective care unit. The patient is a poor historian. Unable to determine when his symptoms started. He is currently resting fairly comfortably in bed. Awake and alert in no acute distress. Maintaining O2 saturations in the high 90s on 3 L/m per nasal cannula. Afebrile. Slightly tachycardic. Ultrasound of the kidneys revealed no hydronephrosis or nephrolithiasis bilaterally. His initiated on a Cardizem drip at 10 mg per hour, heparin drip and antibiotics in the form of ceftriaxone and azithromycin. His initiated on Decadron 10 mg IV daily. Progress note dated 12/17/2020. 89-year-old black male, seen by our nurse practitioner yesterday in consultation. The patient has a history of hypertension, CVA, coronary disease, previous bypass grafting, COPD, seizure disorder, and lung cancer. The patient apparently presented to the emergency department with complaints of increasing shortness of breath, chest tightness, and wheezing. He was found to have atrial fibrillation with RVR, and also was positive for coronavirus infection. The patient seems be recently comfortable this time. He is on 3 L. Saturations are 97%. Heart rate 86. Respiratory rate 18. No audible wheezing, use of accessory muscles, or conversational dyspnea. The patient is not a particularly good historian. White count 15.8, hemoglobin 7.9, hematocrit 24.8, and platelet count 120,000. PTT is 37.8. Sodium 141, potassium 3.4, chlorides 104, CO2 25, anion gap 12, BUN 97, and creatinine 2.67. Initial lactic acid 2.2. Repeat lactic acid 1.1. Chest x-ray shows bilateral interstitial pneumonia with cardiomegaly. There is a small right-sided pleural effusion. Progress note dated 12/18/2020. 89-year-old black male, seen in consultation 2 days ago. I saw the patient yesterday in follow-up. The patient has a history of essential hypertension, CVA, coronary artery disease, previous bypass grafting, COPD, seizure disorder, and lung cancer. The patient presented to the emergency department with complaints of increasing shortness of breath, chest tightness and wheezing, and was found to have atrial fibrillation with RVR, and also tested positive for coronavirus infection. Currently, the patient appears to be relatively comfortable. He is on 3 L nasal cannula, and his saturations are 100%. Blood pressure 112/72, heart rate 89, respiratory rate 18, and his temperature is 97.8. Labs show a white count of 14.6, hemoglobin 7.8, hematocrit 25.6, and platelet count 121,000. D-dimer is 2.0. Sodium 141, potassium 3.8, chlorides 108, CO2 26, anion gap 7, BUN 76, creatinine 2.19. No recent chest x-ray to review. The patient is seen today 12/19/2020 in follow-up on the cardiac floor. He is currently resting comfortably in bed. Awake, alert and in no acute distress. He is maintaining O2 saturation in the 90s on 3 L/m per nasal cannula. Lactated Ringer's at 75 ML's per hour. He's been afebrile. Hemodynamically stable. Chest x-ray reveals evidence of congestive heart failure and underlying COPD. Chronic pleural reaction. Blood cultures reveal no growth. White count 12.4. Hemoccult was 7.7. Platelets 113. Sodium 141. Potassium 4.0. Creatinine 2.09. ProBNP 36,700. He remains on Decadron, Lovenox, vitamin supplements. Antibiotics in the form of Unasyn. The patient is seen today 12/20/2020 in follow-up on the selective care unit. He is currently resting comfortably in bed. Awake and alert in no acute distress. Rectal maintaining O2 saturations in the 90s on 3 L/m per nasal cannula. She's been afebrile. Hemodynamically stable. Blood cultures reveal no growth. No new labs today. He remains on Decadron, Lovenox, vitamin supplements. Antibiotics in the form of Unasyn. Lactated Ringer's at 75 ML's per hour. The patient is seen today 12/21/2020 in follow-up on the selective care unit. He has currently resting comfortably in bed. Awake and alert in no acute distress. He is on 2 L/m per nasal cannula. O2 saturation 98%. White count 17.0. Hemoglobin 8.9. Sodium 140. Potassium 3.7. Creatinine 1.92. He is continued on Unasyn. Remains on Decadron, Lovenox, vitamin supplements. Echocardiogram reveals moderate impaired left ventricular systolic function with ejection fraction 40-45%. Severe pulmonary hypertension. The patient is seen today 12/22/2020 in follow-up on the selective care unit. He is currently resting comfortably in bed. Maintaining O2 saturations in the 90s on 2 L/m per nasal cannula. Chest x-ray shows cardiomegaly with chronic parenchymal changes with right greater than left bilateral multifocal opacities and tiny bilateral pleural effusions. No change compared to previous. 0.9 normal saline @ 20 ML's per hour. He is continued on Decadron, Lovenox, vitamin supplements. Antibiotics in the form of Unasyn. Blood cultures reveal no growth. White count 18.5. Hemoglobin 8.8. Lymphocytes 0.4. Sodium 141. Potassium 3.9. Creatinine 1.82. The patient is seen today 12/23/2020 in follow-up on the selective care unit. He is awake and alert in no acute distress. Resting quite comfortably in bed. Maintaining O2 saturations in the 90s on 4 L/m per nasal cannula. No IV fluids. Pro-calcitonin down to 3.6. He remains on Unasyn. He remains on dexamethasone, Lovenox, vitamin supplements. Transitioned to oral diuretics. 12/24 2020, the patient is being seen for a follow-up. The patient remains on 4 L of S2nstax cannula to maintain a saturation above 90%. Is a case of COVID-19 related pneumonia with secondary story failure. His superinfection is also suspected knowing that the patient's pro-calcitonin level was elevated significantly. The most recent chest x-ray showing diffuse but the pulmonary infiltrates right more than left. The pro-calcitonin level is down to 3.6 from 12/22/2020. The white cell count of 18.5 with a hemoglobin of 8.9. Platelet count is stable at 178. The patient continues to have some lymphopenia. Creatinine is down to 1.8 with the rest of the electrodes being within normal limits. She remains on empiric antibiotic coverage with IV Unasyn initially and later on Augmentin. He is on Decadron 4 mg by mouth daily. He is on Lasix 20 mg by mouth daily and he is also on Lovenox 30 mg subcu for DVT prophylaxis. 12/25/2020, the patient is being seen for a follow-up. He is a case of COVID-19 infection/pneumonia with superinfection, possibly a pneumonia based on elevated calcitonin level. The chest x-ray was showing patchy bilateral infiltrates and cardiomegaly. This was the x-ray from yesterday. Based on this, the patient was kept on a combination of Decadron currently on 2 mg and the patient is also on a course of Augmentin 875 mg twice a day after being treated with IV Unasyn. This morning, the patient is on oxygen on 4 L with a pulse ox of 94%. Remains on Lovenox 30 mg subcu for DVT prophylaxis. With that was of 14.7. Hemoglobin dropped down to 6.8 with a platelet count of 172. Coagulation profile has been adequate from prior evaluations. His creatinine is up to 2.27 with a BUN of 62 and the patient had a follow-up pro-calcitonin level of 3.6. Stool for occult blood was also negative. Units of packed RBC has already been ordered for this patient. 12/26/2020, the patient essentially looks the same as yesterday and he remains on 5 L of oxygen by nasal cannula. His swallow mechanism has been suspected to be 4 and was suspected felt aspiration and for that reason we sent him for a swallow evaluation and the patient is having a modified barium swallow done today. He is a case of COVID-19 related pneumonia. His pro calcitonin level was elevated and is improving and is down to 1.53 also and we suspected superinfection and for that reason the patient was given antibiotics initially Zosyn and later on Augmentin. His chest x-ray from today is showing interstitial infiltrates bilaterally more so on the right where the right lung is essentially infiltrated in the left upper lobe was also infiltrated in the left lower lobe essentially spared. He is receiving Decadron at a dose of 2 mg by mouth daily. He is also on Lovenox and we had to stop it because of a drop in hemoglobin down to 6.8 and this can be essentially resumed as the patient has no evidence of bleeding. He received a unit of packed RBC and hemoglobin responded nicely and felt to 9.2. His creatinine is stable at 2.1 which is improved compared to yesterday. 12/27/2020 the patient remains on oxygen at 5 L which is essentially the same as yesterday. With suspected aspiration. With a bedside swallow evaluation following that the patient was given a modified barium swallow and the patient was found to have some oral and pharyngeal phases that were appropriate and there was appropriate for propagation up with material. There was normal mastication. No evidence of any aspiration. As such, the patient was cleared. At this point in time, the patient is still being treated for a combination of COVID-19 related pneumonia with a suspected superinfection. The patient remains on Augmentin leg grams twice a day. Sputum sample was sent and the patient sputum sample came back positive for gram-negative bacillus including sedation marcescens and this microorganism was resistant to Augmentin. The patient is also on Decadron 2 mg by mouth daily and the patient is also taking Lovenox 30 mg subcu on a daily basis. Chest x-ray findings and essentially unchanged the patient has diffuse interstitial infiltrates bilaterally more so on the right compared to the left. His d-dimer is at 4.22. Creatinine is stable at 2.1 . He continues to have some congested cough. His pro calcitonin level has dropped down to 1.53. As stated, chest x-ray findings are essentially unchanged and stable. He remains quite debilitated at this point in time. He passed a swallow evaluation. 12/28/2020, the patient is being seen for a follow-up. He remains on 5 L of oxygen by nasal cannula. His chest x-ray was showing diffuse pulmonary infiltrates most on the right compared to the left. Noted is a case of COVID-19 related pneumonia in his sputum also showed Serratia and subsequent culture showed Pseudomonas. Both of them are sensitive to Levaquin. Nevertheless, due to presence of pseudomonas, would like to cover this patient with a broader spectrum antibiotics with IV cefepime. Otherwise, the patient is essentially t he same as yesterday. White cell count is elevated with a white cell count of 16. Hemoglobin stable at 8.7 and the patient has not had any further episodes of GI bleeds. His creatinine is also stable at 2.04 with a BUN of 58 and the patient's serum bicarb is 22. Electrodes are normal. His d-dimer is at 5.88. LDH level is at 1259 which is slightly improved compared to earlier studies. He is weak. His debilitated. Oral intake is quite diminished. He has a congested cough. Heart is using his incentive spirometer. He did pass a swallow evaluation. He remains on Decadron. He remains on Lovenox 30 mg subcutaneous for DVT prophylaxis. This was restarted yesterday. 12/29/2020 the patient is on 8 L of oxygen by nasal cannula. Dobbhoff insertion catheter was unsuccessful. I switched him to a NG tube catheter which she was keeping it on till evening and later on he pulled it out because of discomfort. As such, enteral feeding was also discontinued. He is going back to his regular oral habits which is essentially poor at this point in time. There is also a concern of aspiration. He did pass a swallow evaluation nevertheless, he is eating habits has been poor and his caloric intake has been also poor. Aspiration is to be given for PEG tube insertion. GI is on the case. He is known to have also pseudomonas in his sputum in addition to Serratia. I put him on IV cefepime yesterday. He does have pneumonia which is probably a combination of gram-negative and COVID-19 related pneumonia. On his blood work, the patient has a white cell count 14.8. His hemoglobin is at 8.5. He has a creatinine of 2.0 which is stable compared to yesterday and the sodium level is at 144. Has implemented markings from few days back showed an LDH level of 1259. His long-term prognosis poor. He is quite debilitated. He is 89 years of age. He has multiple medical problems and comorbidities and he has been significantly weak and debilitated especially with this ongoing COVID-19 pneumonia with superinfection with gram-negative bacteria. 12/30/2020 the patient is on oxygen at 10 L. As mentioned earlier, attempt to keep the patient has failed and the patient pulled out his NG tube and currently he is taken oral intake and modest amounts. Meanwhile, the patient is currently on 10 L of oxygen by nasal cannula. Repeat chest x-ray from today is showing bilateral pulmonary infiltrates right more than left and there is obvious interval worsening in the pulmonary infiltration on the right and there is obvious interval worsening of airspace disease bilaterally and this is most likely consistent with COVID-19 related pneumonia. His white cell count is at 14.8 with a hemoglobin of 8.5. His creatinine is still stable at 2.1. Inflammatory markers are still pending from today. LDH from few days back was at 1259. He remains on IV cefepime. He remains on Decadron and the dose will be adjusted up to 6 mg IV every 12 hours specially with his interval progression of the bilateral pulmonary infiltrates. His hemoglobin is at 8.5. He is quite lethargic and debilitated. He sleeps most of the time. His breathing seems to be more labored compared to yesterday and he seems to be in mild degree of respiratory distress at this point in time. CODE STATUS is full and obviouslyto be addressed pressure with his interval progression and worsening of the pneumonia. On today's evaluation a 2020, the patient is still doing poorly on a 10 L per minute nasal cannula. Afebrile. Hemodynamically stable. Breathing is nonlabored. Oral intake is almost minimal. He is laying comfortably in bed. Hemodynamically stable. His renal function is showing a creatinine of 2.2 with a mean of 61. Serum bicarbonate 21. The LDH level is 1137 with a CRP level of 5.8. Chest x-ray from yesterday was showing interval worsening of the right lung consolidation. Patient is afebrile. Very much weak and debilitated. Pulse ox is order of 88-90% on high flow oxygen at 10 L per minute nasal cannula. Objective - Vital Signs Vital signs: Vital Signs Temp 97.4 F L 12/31/20 04:00 Pulse 96 12/31/20 09:03 Resp 24 12/31/20 09:03 BP 116/72 12/31/20 04:00 Pulse Ox 95 12/31/20 04:00 Intake & Output 12/30/20 12/31/20 12/31/20 18:59 06:59 18:59 Intake Total 320 50 Output Total 525 250 Balance -205 -250 50 Weight 58 kg 69.5 kg Intake: Intake, IV Titration 50 Amount Cefepime 1 gm In Sodium 50 Chloride 0.9% 50 ml @ 12. 5 mls/hr IVPB Q12HR [facility] Rx#:[id number] Oral 320 Output: Urine 525 250 Other: Voiding Method Urinal Urinal Urinal # Voids 1 # Bowel Movements 1 - Exam No acute distress, pleasant 89-year-old gentleman, poor historian, currently on 10 L nasal cannula, with saturations at 95%. No obvious respiratory distress. He looks quite lethargic and he looks significantly debilitated at this point in time. He is laying down on his right side. Doesn't do a lot of activity. Does communicate more labored compared to yesterday and the patient is more tachypneic. HEENT examination is grossly unremarkable. Neck supple. Full range of motion. No adenopathy thyromegaly or neck vein distention. Cardiovascular examination reveals regular rhythm rate. S1-S2 normal. No S3 or S4. No discernible murmur noted. Heart rate 105 bpm. Lungs reveal scattered rhonchi and crackles. Breath sounds equal bilaterally. He is not taking deep breaths. No distinct wheezes noted. Abdomen soft bowel sounds are heard. No masses or tenderness. Extremities are intact. No cyanosis clubbing or edema. Skin is without rash or lesion. Neurologic examination is brief but nonfocal. - Labs CBC & Chem 7: 12/30/20 10:25 12/31/20 08:27 Labs: Abnormal Lab Results - Last 24 Hours (Table) 12/30/20 12/30/20 12/30/20 Range/Units 10:25 10:25 10:25 WBC 12.7 H (3.8-10.6) k/uL RBC 2.91 L (4.30-5.90) m/uL Hgb 8.6 L (13.0-17.5) gm/dL Hct 27.1 L (39.0-53.0) % RDW 20.7 H (11.5-15.5) % Plt Count 115 L (150-450) k/uL Chloride 112 H (98-107) mmol/L Carbon Dioxide 21 L (22-30) mmol/L BUN 60 H (9-20) mg/dL Creatinine 2.15 H (0.66-1.25) mg/dL Glucose 124 H (74-99) mg/dL Alkaline Phosphatase (38-126) U/L Lactate Dehydrogenase 1073 H (313-618) U/L C-Reactive Protein 7.0 H (<1.0) mg/dL Total Protein 5.7 L (6.3-8.2) g/dL Albumin 2.6 L (3.5-5.0) g/dL Procalcitonin 1.83 H (0.02-0.09) ng/mL 12/31/20 Range/Units 08:27 WBC (3.8-10.6) k/uL RBC (4.30-5.90) m/uL Hgb (13.0-17.5) gm/dL Hct (39.0-53.0) % RDW (11.5-15.5) % Plt Count (150-450) k/uL Chloride 112 H (98-107) mmol/L Carbon Dioxide 21 L (22-30) mmol/L BUN 61 H (9-20) mg/dL Creatinine 2.27 H (0.66-1.25) mg/dL Glucose 122 H (74-99) mg/dL Alkaline Phosphatase 127 H (38-126) U/L Lactate Dehydrogenase 1137 H (313-618) U/L C-Reactive Protein 5.8 H (<1.0) mg/dL Total Protein 6.2 L (6.3-8.2) g/dL Albumin 2.8 L (3.5-5.0) g/dL Procalcitonin (0.02-0.09) ng/mL Assessment and Plan Plan: 1 Acute hypoxemic respiratory failure secondary to acute COVID-19 pneumonia, . The patient has also grown Serratia and Pseudomonas and the patient and his sputum. His antibiotics have been modified into IV cefepime. Showing interval worsening of the consolidation and airspace disease involving the right lung and the patient is currently up to 10 L of Oxymizer nasal cannula. In my opinion, this is progression of COVID-19. Patient is covered with IV cefepime regarding gram-negative pneumonia 2. We'll repeat chest x-ray in the morning. We'll repeat a metabolic markers. We'll obtain LDH, CRP and will also obtain a pro- calcitonin level. Aspiration precautions. He is requiring assistance for activities such as feeding. Since yesterday, the patient's condition has remained essentially stable, still on 10 L 02 by nasal cannula. Inflammatory markers including LDH has been elevated. Repeat chest x-ray showing stable bilateral airspace disease consistent with obesity-related pneumonia. 2 Leukocytosis, pro-calcitonin greater than 100 secondary to above, currently down to 1.83 3 Acute exacerbation of systolic congestive heart failure 4 Acute renal failure with a history of chronic renal failure secondary to nephrosclerosis, creatinine stable 5 Atrial fibrillation with a rapid ventricular response, currently atrial tachycardia, on beta blockers 6 Recent CVA 7 Troponin leak 8 Coronary artery disease with previous history of coronary artery bypass grafting 9 Chronic obstructive pulmonary disease 10 Remote history of lung cancer, details of which are unclear 11 Former smoker 12 chronic anemia, multifactorial. No signs of any acute GI bleed. Hemoglobin is stable for now. Plan: Clinically stable since yesterday. His oxygen requirement has gone up to 10 L and the patient seems to be clinically more labored in terms of his breathing. Obviously there is interval progression. Inflammatory markers continue to be elevated.. Recheck the pro-calcitonin level is showing of the level is at 1.83 and gradually improving.. Titrate FiO2 to maintain a saturation above 90%. Nevertheless, this patient will ultimately need a CODE STATUS change. He will not survive intubation mechanical ventilation. I strongly urge a CODE STATUS change in this patient. Continue IV cefepime Continue Decadron the Decadron dose to 6 medical grams IV every 12 hours Recheck pro-calcitonin level the level is at 1.8 Recheck labs, creatinine is stable Follow-up chest x-ray showing bilateral pneumonia and airspace disease, stable Hemoglobin is stable and there is no further bouts of GI bleed Monitor renal function Monitor mental status Lovenox, vitamin supplements swallow evaluation the less nevertheless, his oral intake is minimal and a Dobbhoff tube was unsuccessful and the patient had an NG tube which ultimately refused and he pulled out. GI is on the case. Consider PEG tube insertion. He remains extremely debilitated and obviously carries a poor prognosis. We will continue to follow , is a very poor prognosis
[2020-12-31 10:00] LABS: Anisocytosis Moderate; Basophils % (A) 0 %; Eosinophils % (A) 0 %; HCT 27.7 % (39.0-53.0); HGB 8.9 gm/dL (13.0-17.5); Hypochromasia Marked; Lymphocytes # (A) 0.5 k/uL (1.0-4.8); Lymphocytes % (A) 3 %; MCH 30.2 pg (25.0-35.0); MCV 94.1 fL (80.0-100.0); Macrocytosis Slight; Monocytes # (A) 0.6 k/uL (0-1.0); Monocytes % (A) 4 %; Neutrophils # (A) 12.5 k/uL (1.3-7.7); Neutrophils % (A) 90 %; Platelet Count 141 k/uL (150-450); Poikilocytosis Slight; RBC 2.94 m/uL (4.30-5.90); RDW 20.8 % (11.5-15.5); WBC 13.8 k/uL (3.8-10.6)
[2020-12-31] MEDS: ONDANSETRON 4 MG/2 ML VIAL IVP PRN (10:14)
--- NOTE | 2020-12-31 12:46 | PN ---
PROGRESS NOTE Patient is seen for followup for chronic kidney disease and acute kidney injury. He is currently lying in bed, comfortable. There are no significant complaints. He appears mildly short of breath. PHYSICAL EXAMINATION: On examination today, blood pressure 116/61, heart rate 116 per minute, patient is afebrile. No edema noted lower extremities. He is maintained on high-flow oxygen at 10 L. PATHOLOGY SECRETARY exam unchanged. Patient is moving all four extremities. LAB: Show hemoglobin 8.9, sodium 141, potassium 3.9, serum creatinine 2.27. ASSESSMENT: 1. Acute kidney injury, acute tubular necrosis. It had improved, creatinine now staying at about 2 mg/dL. 2. Chronic kidney disease, baseline appears to be around 2, NKF stage 4. 3. COVID pneumonia, remains with high oxygen requirement. 4. 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 5. Hypokalemia, status post replacement. 6. Anemia of chronic disease, maintained on Aranesp. PLAN: Continue current dose of Lasix for now. MMODL / IJN: [id number] /
[2020-12-31] MEDS: DARBEPOETIN ALFA 40 MCG/0.4 ML SYRINGE SQ SCH (15:06)
--- NOTE | 2020-12-31 16:31 | P.PN ---
Subjective Progress Note Date: 12/31/20 Fitz Blue, is an 89 year old male who presented to [facility] emergency room with a chief complaint of worsening shortness of breath, patient stated that he started having shortness of breath on the day of presentation that progressed to significant breathing difficulty EMS were sushma smith, they found patient to be in significant respiratory distress he was started on nonrebreather mask and was treated with IV Solu-Medrol and DuoNeb updrafts and was brought in to [facility] emergency room. In the emergency room patient was evaluated, his vital examination on presentation revealed a temperature of 98.6 pulse 142 respiration 18 blood pressure 99/78 pulse ox 94% on room air, laboratory data on presentation revealed a white blood count of 13.5 hemoglobin 10.5 platelet count 134 d-dimer 3.88, sodium 140 potassium 5.3 chloride 106 CO2 16 BUN 19 9 creatinine 5.09 glucose level was 136 plasma lactic acid was 3.5 troponin level was elevated at 0.105 C-reactive p rotein 58.6 Procalcitonin more than 100 and coronavirus PCR was positive. Chest x-ray was done in the emergency room and revealed bilateral interstitial pneumonia, cardiomegaly, small right pleural effusion and pleural reaction , EKG was done in the emergency room and revealed atrial fibrillation with rapid ventricular response and nonspecific ST abnormality . Patient was admitted to telemetry floor for further evaluation and treatment. Patient was admitted to [facility] in August 2020 after having a stroke, he was discharged to [facility] on the [facility] for rehabilit ation and was discharged home about 6 weeks ago. His past medical history is also significant for hypertension, hyperlipidemia, coronary artery disease with history of coronary artery bypass graft surgery, history of COPD, history of pulmonary hypertension, history of multiple lumbar compression vertebral fractures, history of anemia, history of carotid stenosis, history of osteoarthritis, and history of protein calorie malnutrition. On 12/17/2020 patient was seen and examined on the medical floor he is alert and oriented 3 in no apparent distress he is complaining of nausea otherwise he de nies any complaints there is no fever or chills no headache or dizziness no chest pain no shortness of breath no cough no vomiting no abdominal pain no diarrhea no blood in the stools no burning with urination no frequency or urgency and no hematuria. Kidney function has improved significantly since yesterday, otherwise no change in condition. On 12/18/2020 patient was seen and examined on the medical floor he is alert and oriented 3 in no apparent distress he is complaining of nausea otherwise he denies any complaints there is no fever or chills no headache or dizziness no chest pain , he has some shortness of breath no cough no vomiting no abdominal pain no diarrhea no blood in the stools no burning with urination no frequency or urgency and no hematuria. Kidney function has improved significantly since yesterday, otherwise no change in condition. On 12/19/2020 patient was seen and examined on the medical floor he is alert and oriented 3 in no apparent distress he is complaining of nausea otherwise he denies any complaints there is no fever or chills no headache or dizziness no chest pain , he has some shortness of breath no cough no vomiting no abdominal pain no diarrhea no blood in the stools no burning with urination no frequency or urgency and no hematuria. Kidney function has improved significantly since yesterday, otherwise no change in condition. BNP is significantly elevated, patient still having shortness of breath, will check Echocardiogram and consult cardiology. On 12/20/2020 patient was seen and examined on the medical floor he is alert and oriented 3 in no apparent distress he is complaining of nausea otherwise he denies any complaints there is no fever or chills no headache or dizziness no chest pain , he has some shortness of breath no cough no vomiting no abdominal pain no diarrhea no blood in the stools no burning with urination no frequency or urgency and no hematuria. Kidney function has improved significantly since yesterday, otherwise no change in condition. BNP is significantly elevated, patient still having shortness of breath, will check Echocardiogram and consult cardiology. patient was started on IV lasix, awaiting Echo. On 12/21/2020 patient was seen and examined on the medical floor he is alert and oriented 3 in no apparent distress he is complaining of nausea otherwise he denies any complaints there is no fever or chills no headache or dizziness no chest pain , he has some shortness of breath no cough no vomiting no abdominal pain no diarrhea no blood in the stools no burning with urination no frequency or urgency and no hematuria. Kidney function has improved significantly since yesterday, otherwise no change in condition. BNP is significantly elevated, patient still having shortness of breath, will check Echocardiogram and consult cardiology. patient was started on IV lasix, repeat CXR ordered for tomorrow. On 12/22/2020 patient was seen and examined on the medical floor he is alert and oriented 3 in no apparent distress he is complaining of nausea otherwise he denies any complaints there is no fever or chills no headache or dizziness no chest pain , he has some shortness of breath no cough no vomiting no abdominal pain no diarrhea no blood in the stools no burning with urination no frequency or urgency and no hematuria. Kidney function has improved significantly since yesterday, otherwise no change in condition. BNP is significantly elevated, patient still having shortness of breath, will check Echocardiogram and consult cardiology. patient was started on IV lasix, repeat CXR ordered for tomorrow. at this time will switch to oral lasix and oral Decadron continue to monitor, possi ble discharge in the next 1-2 days. On 12/23/2020 Patient was seen and examined on the medical floor, he is alert and oriented x 3 in no distress, he denies any complaints there is no fever or chills no headache or dizziness no chest pain no shortness of breath no palpitation no cough no nausea or vomiting no abdominal pain no diarrhea no blood in the stools no burning with urination no frequency or urgency and no hematuria, there is no weakness or numbness in any of the extremities no change in vision speech or gait. White blood count is still significantly elevated pro calcitonin is elevated chest x-rays revealing some worsening infectious disease following awaiting further recommendation will continue to monitor On 12/24/2020 Patient was seen and examined on the medical floor, he is alert and oriented x 3 in no distress, he denies any complaints there is no fever or chills no headache or dizziness no chest pain no shortness of breath no palpitation no cough no nausea or vomiting no abdominal pain no diarrhea no blood in the stools no burning with urination no frequency or urgency and no hematuria, there is no weakness or numbness in any of the extremities no change in vision speech or gait. White blood count is still significantly elevated pro calcitonin is elevated chest x-rays revealing some worsening opacities, infectious disease following awaiting further recommendation will continue to monitor, today Will decrease dose of Decadron and continue to monitor On 12/25/2020 Patient was seen and examined on the medical floor, he is alert and oriented x 3 in no distress, he denies any complaints there is no fever or chills no headache or dizziness no chest pain no shortness of breath no palpitation no cough no nausea or vomiting no abdominal pain no diarrhea no blood in the stools no burning with urination no frequency or urgency and no hematuria, there is no weakness or numbness in any of the extremities no change in vision speech or gait. Hemoglobin is down to 6.8 today 1 unit of red blood cell transfusion was ordered will follow closely On 12/27/2020 Patient was seen and examined on the medical floor, he is alert and oriented x 3 in no distress, he has very poor oral intake he denies any complaints there is no fever or chills no headache or dizziness no chest pain no shortness of breath no palpitation no cough no nausea or vomiting no abdominal pain no diarrhea no blood in the stools no burning with urination no frequency or urgency and no hematuria, there is no weakness or numbness in any of the extremities no change in vision speech or gait. Nutrition are recommending appetite stimulant patient will be started on Megace. On 12/28/2020 Patient was seen and examined on the medical floor, he is alert and oriented x 3 in no distress, he denies any complaints there is no fever or chills no headache or dizziness no chest pain no shortness of breath no palpitation no cough no nausea or vomiting no abdominal pain no diarrhea no blood in the stools no burning with urination no frequency or urgency and no hematuria, patient has very poor oral intake, recommendation by nutrition is to start a Dobbhoff tube with enteral feeding will proceed as above. On 12/29/2020 Patient was seen and examined on the medical floor, he is alert and oriented x 3 in no distress, he denies any complaints there is no fever or chills no headache or dizziness no chest pain no shortness of breath no palpitation no cough no nausea or vomiting no abdominal pain no diarrhea no blood in the stools no burning with urination no frequency or urgency and no he maturia, patient was unable to tolerate Dobbhoff tube he pulled it out last night, gastroenterology are following, will monitor patient oral intake and decide whether there is an indication for a PEG tube if patient agrees for that. On 12/30/2020 Patient was seen and examined on the medical floor, he is alert and oriented x 3 in no distress, he denies any complaints there is no fever or chills no headache or dizziness no chest pain no shortness of breath no palpitation no cough no nausea or vomiting no abdominal pain no diarrhea no blood in the stools no burning with urination no frequency or urgency and no hematuria, dietitian is stating that patient is still having very low oral intake. I have discussed possibility of PEG tube with patient, at this time he is stating that he does not want a PEG tube and he is going to try to eat more, will continue to monitor closely. On 12/31/2020 Patient was seen and examined on the medical floor, he is alert and oriented x 3 in no distress, he denies any complaints there is no fever or chills no headache or dizziness no chest pain no shortness of breath no palpitation no cough no nausea or vomiting no abdominal pain no diarrhea no blood in the stools no burning with urination no frequency or urgency and no hematuria, patient was encouraged again to increase his oral intake. Objective - Vital Signs Vital signs: Vital Signs Temp 97.6 F 12/31/20 08:35 Pulse 96 12/31/20 09:03 Resp 24 12/31/20 09:03 BP 116/61 12/31/20 08:35 Pulse Ox 89 L 12/31/20 08:35 Intake & Output 12/30/20 12/31/20 12/31/20 18:59 06:59 18:59 Intake Total 320 50 Output Total 525 250 Balance -205 -250 50 Weight 58 kg 69.5 kg Intake: Intake, IV Titration 50 Amount Cefepime 1 gm In Sodium 50 Chloride 0.9% 50 ml @ 12. 5 mls/hr IVPB Q12HR [facility] Rx#:[id number] Oral 320 Output: Urine 525 250 Other: Voiding Method Urinal Urinal Urinal # Voids 1 # Bowel Movements 1 - Exam In general patient is alert and oriented x3 in no distress HEENT head normocephalic and atraumatic Neck is supple no JVD no goiter no lymphadenopathy no carotid bruit Chest examination is clear to auscultation no crackles no wheezing Cardiac exam reveals regular heart sounds S1 and S2 no gallops no murmurs Abdomen is soft nontender no organomegaly with normal bowel sounds Extremity exam reveals no edema no cyanosis or clubbing Neurological examination reveals no gross focal deficits - Labs CBC & Chem 7: 12/31/20 08:27 12/31/20 08:27 Labs: Abnormal Lab Results - Last 24 Hours (Table) 12/30/20 12/31/20 12/31/20 Range/Units 10:25 08:27 08:27 WBC 13.8 H (3.8-10.6) k/uL RBC 2.94 L (4.30-5.90) m/uL Hgb 8.9 L (13.0-17.5) gm/dL Hct 27.7 L (39.0-53.0) % RDW 20.8 H (11.5-15.5) % Plt Count 141 L (150-450) k/uL Neutrophils # 12.5 H (1.3-7.7) k/uL Lymphocytes # 0.5 L (1.0-4.8) k/uL Chloride 112 H (98-107) mmol/L Carbon Dioxide 21 L (22-30) mmol/L BUN 61 H (9-20) mg/dL Creatinine 2.27 H (0.66-1.25) mg/dL Glucose 122 H (74-99) mg/dL Alkaline Phosphatase 127 H (38-126) U/L Lactate Dehydrogenase 1137 H (313-618) U/L C-Reactive Protein 5.8 H (<1.0) mg/dL Total Protein 6.2 L (6.3-8.2) g/dL Albumin 2.8 L (3.5-5.0) g/dL Procalcitonin 1.83 H (0.02-0.09) ng/mL Assessment and Plan Plan: 1. COVID-19 infection 2. Bilateral interstitial pneumonia, possibly related to COVID-19, however bacterial superimposed infection cannot be ruled out 3. Evidence of sepsis, with leukocytosis, hypotension, and elevated lactic acid 4. Acute on chronic renal failure, creatinine on admission in August was 1.5 nephrology consultation requested 5. Severe hyperkalemia 6. Underlying history of COPD 7. Recent history of stroke in August 2020 8. Underlying history of hypertension 9. Underlying history of hyperlipidemia 10. Underlying history of coronary artery disease with previous history of coronary artery bypass graft surgery 11. Underlying history of multiple lumbar compression vertebral fractures. 12. Previous history of anemia and history of GI bleed, Hgb down to 7.7 will consult GI At this time patient is admitted to telemetry floor He received IV fluid boluses He was started on IV heparin and IV Cardizem drip He was started on IV antibiotic Rocephin and Zithromax He was started on steroids prednisone 40 mg daily Pulmonary, nephrology, infectious disease and cardiology consultation requested. Prognosis is poor due to advanced age, severity of illness, and multiple underlying medical conditions Today I spoke was patient nephew for a prolonged phone call. Issues regarding nutrition were discussed in details, poor oral intake on the part of the patient was discussed despite appetite stimulant. Insertion of nasogastric tube for feeding several days ago and the fact that patient has pu lled it out and is refusing to have it put back in again was discussed, also possibility of a PEG tube for feeding was discussed, the nephew Kane Reveles will discuss this issues with his family and with patient and will get back with me this afternoon. Also, issues regarding CODE STATUS were discussed in details, I strongly urged his nephew to change his CODE STATUS to no code as he would most likely not survive having a cold and being on a ventilator. The nephew also will discuss all these issues with his other family members and with patient and we will get back with me this afternoon
--- NOTE | 2021-01-01 06:21 | PN ---
PROGRESS NOTE DATE OF SERVICE: 12/31/2020. REASON FOR FOLLOWUP: Gram-negative pneumonia. INTERVAL HISTORY: The patient is currently afebrile. The patient is breathing comfortably. Denies any chest pain. He did have a cough with occasional sputum. No abdominal pain. No diarrhea. PHYSICAL EXAMINATION: VITAL SIGNS: Blood pressure 113/54 with a pulse of 85, temperature is 97.8, he is 94% on 10 liters of high flow oxygen. GENERAL DESCRIPTION: An elderly male lying in bed in no distress. RESPIRATORY SYSTEM: Unlabored breathing, decreased breath sounds at the bases, no wheeze. HEART: S1, S2. Regular rate and rhythm. ABDOMEN: Soft, no tenderness. EXTREMITIES: No edema of the feet. LABS: Hemoglobin 8.8, white count 13.9, BUN of 61, creatinine is 2.27. DIAGNOSTIC IMPRESSION AND PLAN: Patient with Gram-negative pneumonia. Sputum has been serratia and Pseudomonas, covered with cefepime to continue. Plan for antibiotic on discharge. Continue supportive care. MMODL / IJN: [id number] /
[2021-01-01 08:37] LABS: Anisocytosis Moderate; Basophils % (A) 0 %; Eosinophils % (A) 0 %; HCT 26.9 % (39.0-53.0); HGB 8.5 gm/dL (13.0-17.5); Hypochromasia Marked; Lymphocytes # (A) 0.5 k/uL (1.0-4.8); Lymphocytes % (A) 4 %; MCH 29.9 pg (25.0-35.0); MCHC 31.7 g/dL (31.0-37.0); MCV 94.3 fL (80.0-100.0); Macrocytosis Slight; Mean Platelet Volume 8.6; Monocytes # (A) 0.6 k/uL (0-1.0); Monocytes % (A) 5 %; Neutrophils # (A) 11.3 k/uL (1.3-7.7); Neutrophils % (A) 89 %; Platelet Count 126 k/uL (150-450); Poikilocytosis Slight; RBC 2.85 m/uL (4.30-5.90); RDW 20.7 % (11.5-15.5); WBC 12.7 k/uL (3.8-10.6)
[2021-01-01 08:39] LABS: Albumin 2.7 g/dL (3.5-5.0); Calcium 8.2 mg/dL (8.4-10.2); Potassium 4.1 mmol/L (3.5-5.1); Total Bilirubin 0.5 mg/dL (0.2-1.3); Total Protein 5.9 g/dL (6.3-8.2)
[2021-01-01] MEDS: ASCORBIC ACID 500 MG TAB PO SCH (09:40)
[2021-01-01] MEDS: ASPIRIN 81 MG PO SCH (09:40)
[2021-01-01] MEDS: METOPROLOL TARTRATE 50 MG TAB PO SCH ×2 (09:40→20:46)
[2021-01-01] MEDS: CHOLECALCIFEROL 25 MCG (1000 IU) TABLET PO SCH (09:40)
[2021-01-01] MEDS: dexAMETHasone 2 MG TAB PO SCH (09:41)
[2021-01-01] MEDS: MEGESTROL 400 MG/10 ML CUP PO SCH ×2 (09:41→20:46)
[2021-01-01] MEDS: ENOXAPARIN 30 MG/0.3 ML SYRINGE SQ SCH (09:41)
[2021-01-01] MEDS: FUROSEMIDE 20 MG TAB PO SCH (09:41)
[2021-01-01] MEDS: ZINC SULFATE 220 MG CAP PO SCH (09:42)
[2021-01-01] MEDS: CEFEPIME 1 GM in SODIUM CHLORIDE 0.9% 50 ML IVPB SCH ×2 (09:42→20:46)
--- NOTE | 2021-01-01 13:00 | PN ---
PROGRESS NOTE Patient is seen for followup for chronic kidney disease and acute kidney injury. Renal function has been fairly stable with creatinine staying at about 2-2.2 mg/dL. The patient is being treated for Covid pneumonia. He continues to require large amounts of oxygen, maintained on 15 L high-flow oxygen. Blood pressure this morning 108/46, heart rate 113 per minute. Patient is afebrile. Examination of the lower extremities shows no significant edema. Patient remains with mild respiratory distress. He has been eating. No significant abdominal pain or tenderness noted at this time. LAB: Show sodium of 142, potassium 4.1, chloride 113, CO2 is 20, BUN 60, creatinine 2.2 mg/dL, hemoglobin 8.5 g/dL. ASSESSMENT: 1. Acute kidney injury, acute tubular necrosis currently improved. 2. Chronic kidney disease NKF stage IV baseline creatinine appears to be around 2 mg/dL. Etiology nephrosclerosis. 3. COVID pneumonia requiring with high oxygen requirement. 4. Chronic diastolic congestive heart failure with moderate mitral regurgitation maintained on low-dose loop diuretics. 5. Hypokalemia, status post replacement. 6. Anemia of chronic disease maintained on Aranesp. PLAN: Continue with current dose of oral Lasix. Continue to encourage increased oral intake. No changes from nephrology standpoint. MMODL / IJN: [id number] /
--- NOTE | 2021-01-01 13:46 | P.PN ---
Subjective Progress Note Date: 01/01/21 Principal diagnosis: Anemia, possible need for PEG tube The patient was seen and examined lying in bed. He has been eating small amounts of food. He initially was seen for dark stools, then for possible PEG tube placement. Yesterday the patient and family were refusing PEG tube, however today nurse called to say patient and family would like to proceed. Objective - Vital Signs Vital signs: Vital Signs Temp 99 F 01/01/21 03:28 Pulse 113 H 01/01/21 09:35 Resp 30 H 01/01/21 09:35 BP 108/46 01/01/21 09:35 Pulse Ox 91 L 01/01/21 09:35 Intake & Output 12/31/20 01/01/21 01/01/21 18:59 06:59 18:59 Intake Total 80 Output Total 300 150 Balance -220 -150 Weight 70.5 kg Intake: Intake, IV Titration 50 Amount Cefepime 1 gm In Sodium 50 Chloride 0.9% 50 ml @ 12. 5 mls/hr IVPB Q12HR [facility] Rx#:[id number] Oral 30 Output: Urine 300 150 Other: Voiding Method Urinal Urinal # Voids 1 # Bowel Movements 2 1 - Exam General appearance: The patient is alert, oriented, appears in no acute distress. HET: Head is normocephalic and atraumatic. Conjunctiva pink. Sclera anicteric. Neck: Supple without lymphadenopathy. Abdomen: Soft, nontender, nondistended with bowel sounds. No guarding or rigidity. Extremities: Normal skin color and turgor. No pedal edema Skin: No rashes, no jaundice Neurological: No focal deficits. Alert and oriented 3. - Labs CBC & Chem 7: 01/01/21 07:16 01/01/21 07:16 Labs: Abnormal Lab Results - Last 24 Hours (Table) 12/31/20 01/01/21 01/01/21 Range/Units 08:27 07:16 07:16 WBC 12.7 H (3.8-10.6) k/uL RBC 2.85 L (4.30-5.90) m/uL Hgb 8.5 L (13.0-17.5) gm/dL Hct 26.9 L (39.0-53.0) % RDW 20.7 H (11.5-15.5) % Plt Count 126 L (150-450) k/uL Neutrophils # 11.3 H (1.3-7.7) k/uL Lymphocytes # 0.5 L (1.0-4.8) k/uL Chloride 113 H (98-107) mmol/L Carbon Dioxide 20 L (22-30) mmol/L BUN 60 H (9-20) mg/dL Creatinine 2.21 H (0.66-1.25) mg/dL Calcium 8.2 L (8.4-10.2) mg/dL Total Protein 5.9 L (6.3-8.2) g/dL Albumin 2.7 L (3.5-5.0) g/dL Procalcitonin 1.38 H (0.02-0.09) ng/mL Assessment and Plan (1) Decreased oral intake Narrative/Plan: Patient is only taking in about 50% of his nutrition due to decreased appetite and shortness of breath. Plan was for possible NG/Dobbhoff tube or PEG tube placement, however patient and family initially refused. Can consider PEG tube placement if patient is going to continue with poor oral intake. Do recommend one-on-one feeding to encourage oral intake. Nursing will discuss with case management/dietitian if feedings would be covered. Current Visit: Yes Status: Acute Code(s): R63.8 - OTHER SYMPTOMS AND SIGNS CONCERNING FOOD AND FLUID INTAKE SNOMED Code(s): 215123720 (2) Anemia, normocytic normochromic Narrative/Plan: 89-year-old male with multiple medical comorbidities admitted for shortness of breath and Covid-19 infection. Patient was noted to have anemia on initial hospitalization, with a continued drop in his hemoglobin. He reports his last colonoscopy was approximately one year ago however reports are not available at this time. He also underwent an EGD in August of this year at [facility] with findings including a small hiatal hernia, gastritis, and LA grade B esophagitis as part of a workup for his anemia at that time. He denies any signs or symptoms of GI bleeding. Anemia is likely multifactorial related to chronic disease and acute on chronic renal failure. Current Visit: No Status: Acute Code(s): D64.9 - ANEMIA, UNSPECIFIED SNOMED Code(s): 58948668 (3) COVID-19 Current Visit: Yes Status: Acute Code(s): U07.1 - COVID-19 SNOMED Code(s): 000201936 (4) Acute on chronic renal failure Current Visit: Yes Status: Acute Code(s): N17.9 - ACUTE KIDNEY FAILURE, UNSPECIFIED; N18.9 - CHRONIC KIDNEY DISEASE, UNSPECIFIED SNOMED Code(s): 003010721 (5) COPD (chronic obstructive pulmonary disease) Current Visit: Yes Status: Acute Code(s): J44.9 - CHRONIC OBSTRUCTIVE PUL MONARY DISEASE, UNSPECIFIED SNOMED Code(s): 72197963 Plan: Continue symptomatic and supportive care Continue with diet as tolerated and encourage one-on-one assist with feeding Discuss with case management and coverage for tube feedings once discharged Will discuss further with patient and family with proceeding with PEG tube placement once patient stable Thank you for this consultation, we will continue to follow. Dr. Amaya I agree with the dictator's note, documented as a scribe by Sobia Loza.
--- NOTE | 2021-01-01 15:37 | P.PN ---
Subjective Progress Note Date: 01/01/21 Principal diagnosis: COVID-19 pneumonia, aspiration pneumonia This is a pleasant 89-year-old gentleman who follows with Dr. Boss as his primary care provider. He has history of hypertension, CVA, coronary artery disease with previous coronary artery bypass grafting, COPD, seizure disorder, previous smoker, lung cancer. He presented to the emergency room yesterday with complaints of increasing shortness of breath, chest tightness and wheezing. He was found to be in atrial fibrillation with a rapid ventricular response. Chest x-ray revealed bilateral interstitial pneumonia. Cardiomegaly. Small right pleural effusion and pleural reaction at the right lung base. White count 17.4. Hemoglobin 9.1. Sodium 139. Potassium 5.4. Creatinine 3.75. Presenting creatinine was 5.09. Pro-calcitonin greater than 100. Troponin 0.105. C- reactive protein 58.6. Andres virus positive. He is seen today in consultation on the selective care unit. The patient is a poor historian. Unable to determine when his symptoms started. He is currently resting fairly comfortably in bed. Awake and alert in no acute distress. Maintaining O2 saturations in the high 90s on 3 L/m per nasal cannula. Afebrile. Slightly tachycardic. Ultrasound of the kidneys revealed no hydronephrosis or nephrolithiasis bilaterally. His initiated on a Cardizem drip at 10 mg per hour, heparin drip and antibiotics in the form of ceftriaxone and azithromycin. His initiated on Decadron 10 mg IV daily. Progress note dated 12/17/2020. 89-year-old black male, seen by our nurse practitioner yesterday in consultation. The patient has a history of hypertension, CVA, coronary disease, previous bypass grafting, COPD, seizure disorder, and lung cancer. The patient apparently presented to the emergency department with complaints of increasing shortness of breath, chest tightness, and wheezing. He was found to have atrial fibrillation with RVR, and also was positive for coronavirus infection. The patient seems be recently comfortable this time. He is on 3 L. Saturations are 97%. Heart rate 86. Respiratory rate 18. No audible wheezing, use of accessory muscles, or conversational dyspnea. The patient is not a particularly good historian. White count 15.8, hemoglobin 7.9, hematocrit 24.8, and platelet count 120,000. PTT is 37.8. Sodium 141, potassium 3.4, chlorides 104, CO2 25, anion gap 12, BUN 97, and creatinine 2.67. Initial lactic acid 2.2. Repeat lactic acid 1.1. Chest x-ray shows bilateral interstitial pneumonia with cardiomegaly. There is a small right-sided pleural effusion. Progress note dated 12/18/2020. 89-year-old black male, seen in consultation 2 days ago. I saw the patient yesterday in follow-up. The patient has a history of essential hypertension, CVA, coronary artery disease, previous bypass grafting, COPD, seizure disorder, and lung cancer. The patient presented to the emergency department with complaints of increasing shortness of breath, chest tightness and wheezing, and was found to have atrial fibrillation with RVR, and also tested positive for coronavirus infection. Currently, the patient appears to be relatively comfortable. He is on 3 L nasal cannula, and his saturations are 100%. Blood pressure 112/72, heart rate 89, respiratory rate 18, and his temperature is 97.8. Labs show a white count of 14.6, hemoglobin 7.8, hematocrit 25.6, and platelet count 121,000. D-dimer is 2.0. Sodium 141, potassium 3.8, chlorides 108, CO2 26, anion gap 7, BUN 76, creatinine 2.19. No recent chest x-ray to review. The patient is seen today 12/19/2020 in follow-up on the cardiac floor. He is currently resting comfortably in bed. Awake, alert and in no acute distress. He is maintaining O2 saturation in the 90s on 3 L/m per nasal cannula. Lactated Ringer's at 75 ML's per hour. He's been afebrile. Hemodynamically stable. Chest x-ray reveals evidence of congestive heart failure and underlying COPD. Chronic pleural reaction. Blood cultures reveal no growth. White count 12.4. Hemoccult was 7.7. Platelets 113. Sodium 141. Potassium 4.0. Creatinine 2.09. ProBNP 36,700. He remains on Decadron, Lovenox, vitamin supplements. Antibiotics in the form of Unasyn. The patient is seen today 12/20/2020 in follow-up on the selective care unit. He is currently resting comfortably in bed. Awake and alert in no acute distress. Rectal maintaining O2 saturations in the 90s on 3 L/m per nasal cannula. She's been afebrile. Hemodynamically stable. Blood cultures reveal no growth. No new labs today. He remains on Decadron, Lovenox, vitamin supplements. Antibiotics in the form of Unasyn. Lactated Ringer's at 75 ML's per hour. The patient is seen today 12/21/2020 in follow-up on the selective care unit. He has currently resting comfortably in bed. Awake and alert in no acute distress. He is on 2 L/m per nasal cannula. O2 saturation 98%. White count 17.0. Hemoglobin 8.9. Sodium 140. Potassium 3.7. Creatinine 1.92. He is continued on Unasyn. Remains on Decadron, Lovenox, vitamin supplements. E chocardiogram reveals moderate impaired left ventricular systolic function with ejection fraction 40-45%. Severe pulmonary hypertension. The patient is seen today 12/22/2020 in follow-up on the selective care unit. He is currently resting comfortably in bed. Maintaining O2 saturations in the 90s on 2 L/m per nasal cannula. Chest x-ray shows cardiomegaly with chronic parenchymal changes with right greater than left bilateral multifocal opacities and tiny bilateral pleural effusions. No change compared to previous. 0.9 normal saline @ 20 ML's per hour. He is continued on Decadron, Lovenox, vitamin supplements. Antibiotics in the form of Unasyn. Blood cultures reveal no growth. White count 18.5. Hemoglobin 8.8. Lymphocytes 0.4. Sodium 141. Potassium 3.9. Creatinine 1.82. The patient is seen today 12/23/2020 in follow-up on the selective care unit. He is awake and alert in no acute distress. Resting quite comfortably in bed. Maintaining O2 saturations in the 90s on 4 L/m per nasal cannula. No IV fluids. Pro-calcitonin down to 3.6. He remains on Unasyn. He remains on dexamethasone, Lovenox, vitamin supplements. Transitioned to oral diuretics. 12/24 2020, the patient is being seen for a follow-up. The patient remains on 4 L of [id number] cannula to maintain a saturation above 90%. Is a case of COVID-19 related pneumonia with secondary story failure. His superinfection is also suspected knowing that the patient's pro-calcitonin level was elevated significantly. The most recent chest x-ray showing diffuse but the pulmonary infiltrates right more than left. The pro-calcitonin level is down to 3.6 from 12/22/2020. The white cell count of 18.5 with a hemoglobin of 8.9. Platelet count is stable at 178. The patient continues to have some lymphopenia. C reatinine is down to 1.8 with the rest of the electrodes being within normal limits. She remains on empiric antibiotic coverage with IV Unasyn initially and later on Augmentin. He is on Decadron 4 mg by mouth daily. He is on Lasix 20 mg by mouth daily and he is also on Lovenox 30 mg subcu for DVT prophylaxis. 12/25/2020, the patient is being seen for a follow-up. He is a case of COVID-19 infection/pneumonia with superinfection, possibly a pneumonia based on elevated calcitonin level. The chest x-ray was showing patchy bilateral infiltrates and cardiomegaly. This was the x-ray from yesterday. Based on this, the patient was kept on a combination of Decadron currently on 2 mg and the patient is also on a course of Augmentin 875 mg twice a day after being treated with IV Unasyn. This morning, the patient is on oxygen on 4 L with a pulse ox of 94%. Remains on Lovenox 30 mg subcu for DVT prophylaxis. With that was of 14.7. Hemoglobin dropped down to 6.8 with a platelet count of 172. Coagulation profile has been adequate from prior evaluations. His creatinine is up to 2.27 with a BUN of 62 and the patient had a follow-up pro-calcitonin level of 3.6. Stool for occult blood was also negative. Units of packed RBC has already been ordered for this patient. 12/26/2020, the patient essentially looks the same as yesterday and he remains on 5 L of oxygen by nasal cannula. His swallow mechanism has been suspected to be 4 and was suspected felt aspiration and for that reason we sent him for a swallow evaluation and the patient is having a modified barium swallow done today. He is a case of COVID-19 related pneumonia. His pro calcitonin level was elevated and is improving and is down to 1.53 also and we suspected superinfection and for that reason the patient was given antibiotics initially Zosyn and later on Augmentin. His chest x-ray from today is showing inters titial infiltrates bilaterally more so on the right where the right lung is essentially infiltrated in the left upper lobe was also infiltrated in the left lower lobe essentially spared. He is receiving Decadron at a dose of 2 mg by mouth daily. He is also on Lovenox and we had to stop it because of a drop in hemoglobin down to 6.8 and this can be essentially resumed as the patient has no evidence of bleeding. He received a unit of packed RBC and hemoglobin responded nicely and felt to 9.2. His creatinine is stable at 2.1 which is improved compared to yesterday. 12/27/2020 the patient remains on oxygen at 5 L which is essentially the same as yesterday. With suspected aspiration. With a bedside swallow evaluation following that the patient was given a modified barium swallow and the patient was found to have some oral and pharyngeal phases that were appropriate and there was appropriate for propagation up with material. There was normal mastication. No evidence of any aspiration. As such, the patient was cleared. At this point in time, the patient is still being treated for a combination of COVID-19 related pneumonia with a suspected superinfection. The patient remains on Augmentin leg grams twice a day. Sputum sample was sent and the patient sputum sample came back positive for gram-negative bacillus including sedation marcescens and this microorganism was resistant to Augmentin. The patient is also on Decadron 2 mg by mouth daily and the patient is also taking Lovenox 30 mg subcu on a daily basis. Chest x-ray findings and essentially unchanged the patient has diffuse interstitial infiltrates bilaterally more so on the right compared to the left. His d-dimer is at 4.22. Creatinine is stable at 2.1 . He continues to have some congested cough. His pro calcitonin level has dropped down to 1.53. As stated, chest x-ray findings are essentially unchanged and stable. He remains quite debilitated at this point in time. He passed a swallow evaluation. 12/28/2020, the patient is being seen for a follow-up. He remains on 5 L of oxygen by nasal cannula. His chest x-ray was showing diffuse pulmonary infiltrates most on the right compared to the left. Noted is a case of COVID-19 related pneumonia in his sputum also showed Serratia and subsequent culture showed Pseudomonas. Both of them are sensitive to Levaquin. Nevertheless, due to presence of pseudomonas, would like to cover this patient with a broader spectrum antibiotics with IV cefepime. Otherwise, the patient is essentially the same as yesterday. White cell count is elevated with a white cell count of 16. Hemoglobin stable at 8.7 and the patient has not had any further episodes o f GI bleeds. His creatinine is also stable at 2.04 with a BUN of 58 and the patient's serum bicarb is 22. Electrodes are normal. His d-dimer is at 5.88. LDH level is at 1259 which is slightly improved compared to earlier studies. He is weak. His debilitated. Oral intake is quite diminished. He has a congested cough. Heart is using his incentive spirometer. He did pass a swallow evaluation. He remains on Decadron. He remains on Lovenox 30 mg subcutaneous for DVT prophylaxis. This was restarted yesterday. 12/29/2020 the patient is on 8 L of oxygen by nasal cannula. Dobbhoff insertion catheter was unsuccessful. I switched him to a NG tube catheter which she was keeping it on till evening and later on he pulled it out because of discomfort. As such, enteral feeding was also discontinued. He is going back to his regular oral habits which is essentially poor at this point in time. There is also a concern of aspiration. He did pass a swallow evaluation nevertheless, he is eating habits has been poor and his caloric intake has been also poor. Aspiration is to be given for PEG tube insertion. GI is on the case. He is known to have also pseudomonas in his sputum in addition to Serratia. I put him on IV cefepime yesterday. He does have pneumonia which is probably a combination of gram-negative and COVID-19 related pneumonia. On his blood work, the patient has a white cell count 14.8. His hemoglobin is at 8.5. He has a creatinine of 2.0 which is stable compared to yesterday and the sodium level is at 144. Has implemented markings from few days back showed an LDH level of 1259. His long-term prognosis poor. He is quite debilitated. He is 89 years of age. He has multiple medical problems and comorbidities and he has been significantly weak and debilitated especially with this ongoing COVID-19 pneumonia with superinfection with gram-negative bacteria. 12/30/2020 the patient is on oxygen at 10 L. As mentioned earlier, attempt to keep the patient has failed and the patient pulled out his NG tube and currently he is taken oral intake and modest amounts. Meanwhile, the patient is currently on 10 L of oxygen by nasal cannula. Repeat chest x-ray from today is showing bilateral pulmonary infiltrates right more than left and there is obvious inter vance worsening in the pulmonary infiltration on the right and there is obvious interval worsening of airspace disease bilaterally and this is most likely consistent with COVID-19 related pneumonia. His white cell count is at 14.8 with a hemoglobin of 8.5. His creatinine is still stable at 2.1. Inflammatory markers are still pending from today. LDH from few days back was at 1259. He remains on IV cefepime. He remains on Decadron and the dose will be adjusted up to 6 mg IV every 12 hours specially with his interval progression of the bilateral pulmonary infiltrates. His hemoglobin is at 8.5. He is quite lethargic and debilitated. He sleeps most of the time. His breathing seems to be more labored compared to yesterday and he seems to be in mild degree of respiratory distress at this point in time. CODE STATUS is full and obviouslyto be addressed pressure with his interval progression and worsening of the pneumonia. On today's evaluation 2020, the patient is still doing poorly on a 10 L per minute nasal cannula. Afebrile. Hemodynamically stable. Breathing is nonlabored. Oral intake is almost minimal. He is laying comfortably in bed. Hemodynamically stable. His renal function is showing a creatinine of 2.2 with a mean of 61. Serum bicarbonate 21. The LDH level is 1137 with a CRP level of 5.8. Chest x-ray from yesterday was showing interval worsening of the right lung consolidation. Patient is afebrile. Very much weak and debilitated. Pulse ox is order of 88-90% on high flow oxygen at 10 L per minute nasal cannula. On 01/01/2021 patient seen in follow-up on selective care unit, he appears to be more short of breath, his requiring 15 L high flow nasal cannula and his pulse ox is 90-93%, he is tachypneic, he appears very weak, debilitated, he is curled up in bed, in that he is unable to sit up unassisted. He is afebrile, his been for the most part bedbound, his last chest x-ray was done yesterday showing bilateral airspace disease, no pneumothorax or pleural effusion. Current therapies include Decadron 2 mg daily, he is on oral Lasix 20 mg daily, and he remains on antibiotics in the form of cefepime for aspiration pneumonia, his sputum culture showed Serratia marcescens and the pseudomonas aeruginosa both sensitive to cefepime, blood cultures were negative. The rest of the patient's blood work has been reviewed showing relatively stable white count of 12.7, hemoglobin is 8.5, sodium is 142, potassium is 4.1, chloride is 113, CO2 is 20, BUN of 60 creatinine is 2.21. His pro calcitonin is improving and was down to 1.38 on 12/31/2020. Overall clinically patient appears to be generally declining. He is very weak, he has oral food intake has been extremely diminished, he had a NG tube in place which he pulled out, and apparently he is refusing placement of another NG tube or another gastric tube including a PEG tube. Were told that she is still a full code, however at this point we're not sure if the patient understands what that entails in his condition, and status needs to be clarified with his next of kin as his prognosis is poor Objective - Vital Signs Vital signs: Vital Signs Temp 98.1 F 01/01/21 12:03 Pulse 79 01/01/21 12:03 Resp 25 H 01/01/21 13:55 BP 92/49 01/01/21 12:03 Pulse Ox 90 L 01/01/21 14:04 Intake & Output 12/31/20 01/01/21 01/01/21 18:59 06:59 18:59 Intake Total 80 130 Output Total 300 150 150 Balance -220 -150 -20 Weight 70.5 kg 70.5 kg Intake: Intake, IV Titration 50 50 Amount Cefepime 1 gm In Sodium 50 50 Chloride 0.9% 50 ml @ 12. 5 mls/hr IVPB Q12HR [facility] Rx#:[id number] Oral 30 80 Output: Urine 300 150 150 Other: Voiding Method Urinal Urinal Urinal # Voids 1 2 # Bowel Movements 2 1 - Exam GENERAL EXAM: Lethargic, 89-year-old frail looking fatigued, weak 89-year-old -[place] male, currently on 15 L of oxygen, mildly short of breath, he is on 14 2015 L per high flow nasal cannula with a pulse ox of 90%, moderately tachypneic, and short of breath with any conversation or any exertion comfortable in no apparent distress. HEAD: Normocephalic/atraumatic. EYES: Normal reaction of pupils, equal size. Conjunctiva pink, sclera white. NOSE: Clear with pink turbinates. THROAT: No erythema or exudates. NECK: No masses, no JVD, no thyroid enlargement, no adenopathy. CHEST: No chest wall deformity. Symmetrical expansion. LUNGS: Equal air entry with diminished breath sounds at the bases, with bibasilar crackles CVS: Regular rate and rhythm, normal S1 and S2, no gallops, no murmurs, no rubs ABDOMEN: Soft, nontender. No hepatosplenomegaly, normal bowel sounds, no guarding or rigidity. EXTREMITIES: No clubbing, no edema, no cyanosis, 2+ pulses and upper and lower extremities. MUSCULOSKELETAL: Muscle strength and tone normal. SPINE: No scoliosis or deformity SKIN: No rashes CENTRAL NERVOUS SYSTEM: Alert and oriented -3. No focal deficits, tone is nor mal in all 4 extremities. PSYCHIATRIC: Alert and oriented -3. Appropriate affect. Intact judgment and insight. - Labs CBC & Chem 7: 01/01/21 07:16 01/01/21 07:16 Labs: Abnormal Lab Results - Last 24 Hours (Table) 12/31/20 01/01/21 01/01/21 Range/Units 08:27 07:16 07:16 WBC 12.7 H (3.8-10.6) k/uL RBC 2.85 L (4.30-5.90) m/uL Hgb 8.5 L (13.0-17.5) gm/dL Hct 26.9 L (39.0-53.0) % RDW 20.7 H (11.5-15.5) % Plt Count 126 L (150-450) k/uL Neutrophils # 11.3 H (1.3-7.7) k/uL Lymphocytes # 0.5 L (1.0-4.8) k/uL Chloride 113 H (98-107) mmol/L Carbon Dioxide 20 L (22-30) mmol/L BUN 60 H (9-20) mg/dL Creatinine 2.21 H (0.66-1.25) mg/dL Calcium 8.2 L (8.4-10.2) mg/dL Total Protein 5.9 L (6.3-8.2) g/dL Albumin 2.7 L (3.5-5.0) g/dL Procalcitonin 1.38 H (0.02-0.09) ng/mL Assessment and Plan Plan: Assessment: #1. Acute hypoxemic respiratory failure secondary to acute COVID-19 pneumonia, . The patient has also grown Serratia and Pseudomonas and the patient and his sputum. His antibiotics have been modified into IV cefepime. Showing interval worsening of the consolidation and airspace disease involving the right lung and the patient is currently up to 10 L of Oxymizer nasal cannula. In my opinion, this is progression of COVID-19. Patient is covered with IV cefepime regarding gram-negative pneumonia 2. We'll repeat chest x-ray in the morning. We'll re peat a metabolic markers. We'll obtain LDH, CRP and will also obtain a pro- calcitonin level. Aspiration precautions. He is requiring assistance for activities such as feeding. Since yesterday, the patient's condition has remained essentially stable, still on 10 L 02 by nasal cannula. Inflammatory markers including LDH has been elevated. Repeat chest x-ray showing stable bilateral airspace disease consistent with obesity-related pneumonia. #2. Leukocytosis, pro-calcitonin greater than 100 secondary to above, currently down to 1.83 #3. Acute exacerbation of systolic congestive heart failure #4. Acute renal failure with a history of chronic renal failure secondary to nephrosclerosis, creatinine stable #5. Atrial fibrillation with a rapid ventricular response, currently atrial tach ycardia, on beta blockers #6. Recent CVA #7. Troponin leak #8. Coronary artery disease with previous history of coronary artery bypass grafting #9. Chronic obstructive pulmonary disease #10. Remote history of lung cancer, details of which are unclear #11. Former smoker #12. chronic anemia, multifactorial. No signs of any acute GI bleed. Hemoglobin is stable for now. Thank you: Continue Decadron at 6 mg IV every 12 hours Continue cefepime Lasix per nephrology Patient remains on high flow oxygen, and he is at risk for further deterioration Overall prognosis is poor, patient is quite frail and debilitated, advanced age, multiple comorbidities, has a history of CHF with reduced systolic function Clarify CODE STATUS with the next of kin From pulmonary perspective we recommend palliative care/hospice For now continue supportive Treatment GI and DVT prophylaxis Supplement nutrition I performed a history & physical examination of the patient and discussed their management with my nurse practitioner, Sharee Palencia. I reviewed the nurse practitioner's note and agree with the documented findings and plan of care. Lung sounds are positive for diminished breath sounds The findings and the impression was discussed with the patient. I attest to the documentation by the nurse practitioner. Time with Patient: Less than 30
[2021-01-01] MEDS ORDERED: ACETAMINOPHEN TAB 500 MG TAB PO PRN (19:13)
--- NOTE | 2021-01-01 19:15 | P.PN ---
Subjective Progress Note Date: 01/01/21 Fitz Blue, is an 89 year old male who presented to [facility] emergency room with a chief complaint of worsening shortness of breath, patient stated that he started having shortness of breath on the day of presentation that progressed to significant breathing difficulty EMS were sushma smith, they found patient to be in significant respiratory distress he was started on nonrebreather mask and was treated with IV Solu-Medrol and DuoNeb updrafts and was brought in to [facility] emergency room. In the emergency room patient was evaluated, his vital examination on presentation revealed a temperature of 98.6 pulse 142 respiration 18 blood pressure 99/78 pulse ox 94% on room air, laboratory data on presentation revealed a white blood count of 13.5 hemoglobin 10.5 platelet count 134 d-dimer 3.88, sodium 140 potassium 5.3 chloride 106 CO2 16 BUN 19 9 creatinine 5.09 glucose level was 136 plasma lactic acid was 3.5 troponin level was elevated at 0.105 C-reactive p rotein 58.6 Procalcitonin more than 100 and coronavirus PCR was positive. Chest x-ray was done in the emergency room and revealed bilateral interstitial pneumonia, cardiomegaly, small right pleural effusion and pleural reaction , EKG was done in the emergency room and revealed atrial fibrillation with rapid ventricular response and nonspecific ST abnormality . Patient was admitted to telemetry floor for further evaluation and treatment. Patient was admitted to [facility] in August 2020 after having a stroke, he was discharged to [facility] the [facility] for rehabilit ation and was discharged home about 6 weeks ago. His past medical history is also significant for hypertension, hyperlipidemia, coronary artery disease with history of coronary artery bypass graft surgery, history of COPD, history of pulmonary hypertension, history of multiple lumbar compression vertebral fractures, history of anemia, history of carotid stenosis, history of osteoarthritis, and history of protein calorie malnutrition. On 12/17/2020 patient was seen and examined on the medical floor he is alert and oriented 3 in no apparent distress he is complaining of nausea otherwise he de nies any complaints there is no fever or chills no headache or dizziness no chest pain no shortness of breath no cough no vomiting no abdominal pain no diarrhea no blood in the stools no burning with urination no frequency or urgency and no hematuria. Kidney function has improved significantly since yesterday, otherwise no change in condition. On 12/18/2020 patient was seen and examined on the medical floor he is alert and oriented 3 in no apparent distress he is complaining of nausea otherwise he denies any complaints there is no fever or chills no headache or dizziness no chest pain , he has some shortness of breath no cough no vomiting no abdominal pain no diarrhea no blood in the stools no burning with urination no frequency or urgency and no hematuria. Kidney function has improved significantly since yesterday, otherwise no change in condition. On 12/19/2020 patient was seen and examined on the medical floor he is alert and oriented 3 in no apparent distress he is complaining of nausea otherwise he denies any complaints there is no fever or chills no headache or dizziness no chest pain , he has some shortness of breath no cough no vomiting no abdominal pain no diarrhea no blood in the stools no burning with urination no frequency or urgency and no hematuria. Kidney function has improved significantly since yesterday, otherwise no change in condition. BNP is significantly elevated, patient still having shortness of breath, will check Echocardiogram and consult cardiology. On 12/20/2020 patient was seen and examined on the medical floor he is alert and oriented 3 in no apparent distress he is complaining of nausea otherwise he denies any complaints there is no fever or chills no headache or dizziness no chest pain , he has some shortness of breath no cough no vomiting no abdominal pain no diarrhea no blood in the stools no burning with urination no frequency or urgency and no hematuria. Kidney function has improved significantly since yesterday, otherwise no change in condition. BNP is significantly elevated, patient still having shortness of breath, will check Echocardiogram and consult cardiology. patient was started on IV lasix, awaiting Echo. On 12/21/2020 patient was seen and examined on the medical floor he is alert and oriented 3 in no apparent distress he is complaining of nausea otherwise he denies any complaints there is no fever or chills no headache or dizziness no chest pain , he has some shortness of breath no cough no vomiting no abdominal pain no diarrhea no blood in the stools no burning with urination no frequency or urgency and no hematuria. Kidney function has improved significantly since yesterday, otherwise no change in condition. BNP is significantly elevated, patient still having shortness of breath, will check Echocardiogram and consult cardiology. patient was started on IV lasix, repeat CXR ordered for tomorrow. On 12/22/2020 patient was seen and examined on the medical floor he is alert and oriented 3 in no apparent distress he is complaining of nausea otherwise he denies any complaints there is no fever or chills no headache or dizziness no chest pain , he has some shortness of breath no cough no vomiting no abdominal pain no diarrhea no blood in the stools no burning with urination no frequency or urgency and no hematuria. Kidney function has improved significantly since yesterday, otherwise no change in condition. BNP is significantly elevated, patient still having shortness of breath, will check Echocardiogram and consult cardiology. patient was started on IV lasix, repeat CXR ordered for tomorrow. at this time will switch to oral lasix and oral Decadron continue to monitor, possi ble discharge in the next 1-2 days. On 12/23/2020 Patient was seen and examined on the medical floor, he is alert and oriented x 3 in no distress, he denies any complaints there is no fever or chills no headache or dizziness no chest pain no shortness of breath no palpitation no cough no nausea or vomiting no abdominal pain no diarrhea no blood in the stools no burning with urination no frequency or urgency and no hematuria, there is no weakness or numbness in any of the extremities no change in vision speech or gait. White blood count is still significantly elevated pro calcitonin is elevated chest x-rays revealing some worsening infectious disease following awaiting further recommendation will continue to monitor On 12/24/2020 Patient was seen and examined on the medical floor, he is alert and oriented x 3 in no distress, he denies any complaints there is no fever or chills no headache or dizziness no chest pain no shortness of breath no palpitation no cough no nausea or vomiting no abdominal pain no diarrhea no blood in the stools no burning with urination no frequency or urgency and no hematuria, there is no weakness or numbness in any of the extremities no change in vision speech or gait. White blood count is still significantly elevated pro calcitonin is elevated chest x-rays revealing some worsening opacities, infectious disease following awaiting further recommendation will continue to monitor, today Will decrease dose of Decadron and continue to monitor On 12/25/2020 Patient was seen and examined on the medical floor, he is alert and oriented x 3 in no distress, he denies any complaints there is no fever or chills no headache or dizziness no chest pain no shortness of breath no palpitation no cough no nausea or vomiting no abdominal pain no diarrhea no blood in the stools no burning with urination no frequency or urgency and no hematuria, there is no weakness or numbness in any of the extremities no change in vision speech or gait. Hemoglobin is down to 6.8 today 1 unit of red blood cell transfusion was ordered will follow closely On 12/27/2020 Patient was seen and examined on the medical floor, he is alert and oriented x 3 in no distress, he has very poor oral intake he denies any complaints there is no fever or chills no headache or dizziness no chest pain no shortness of breath no palpitation no cough no nausea or vomiting no abdominal pain no diarrhea no blood in the stools no burning with urination no frequency or urgency and no hematuria, there is no weakness or numbness in any of the extremities no change in vision speech or gait. Nutrition are recommending appetite stimulant patient will be started on Megace. On 12/28/2020 Patient was seen and examined on the medical floor, he is alert and oriented x 3 in no distress, he denies any complaints there is no fever or chills no headache or dizziness no chest pain no shortness of breath no palpitation no cough no nausea or vomiting no abdominal pain no diarrhea no blood in the stools no burning with urination no frequency or urgency and no hematuria, patient has very poor oral intake, recommendation by nutrition is to start a Dobbhoff tube with enteral feeding will proceed as above. On 12/29/2020 Patient was seen and examined on the medical floor, he is alert and oriented x 3 in no distress, he denies any complaints there is no fever or chills no headache or dizziness no chest pain no shortness of breath no palpitation no cough no nausea or vomiting no abdominal pain no diarrhea no blood in the stools no burning with urination no frequency or urgency and no he maturia, patient was unable to tolerate Dobbhoff tube he pulled it out last night, gastroenterology are following, will monitor patient oral intake and decide whether there is an indication for a PEG tube if patient agrees for that. On 12/30/2020 Patient was seen and examined on the medical floor, he is alert and oriented x 3 in no distress, he denies any complaints there is no fever or chills no headache or dizziness no chest pain no shortness of breath no palpitation no cough no nausea or vomiting no abdominal pain no diarrhea no blood in the stools no burning with urination no frequency or urgency and no hematuria, dietitian is stating that patient is still having very low oral intake. I have discussed possibility of PEG tube with patient, at this time he is stating that he does not want a PEG tube and he is going to try to eat more, will continue to monitor closely. On 12/31/2020 Patient was seen and examined on the medical floor, he is alert and oriented x 3 in no distress, he denies any complaints there is no fever or chills no headache or dizziness no chest pain no shortness of breath no palpitation no cough no nausea or vomiting no abdominal pain no diarrhea no blood in the stools no burning with urination no frequency or urgency and no hematuria, patient was encouraged again to increase his oral intake. On 01/01/2021 Patient was seen and examined on the medical floor, he is alert and oriented x 3 in no distress, he denies any complaints there is no fever or chills no headache or dizziness no chest pain no shortness of breath no palpitation no cough no nausea or vomiting no abdominal pain no diarrhea no blood in the stools no burning with urination no frequency or urgency and no hematuria, there is no weakness or numbness in any of the extremities no change in vision speech or gait., Patient still has very low oral intake, at this time after prolonged discussion with patient and with his nephew Kane Reveles, patient is now agreeable to proceeding with PEG tube for feeding. Objective - Vital Signs Vital signs: Vital Signs Temp 99 F 01/01/21 03:28 Pulse 86 01/01/21 03:28 Resp 23 01/01/21 03:28 BP 110/68 01/01/21 03:28 Pulse Ox 92 L 01/01/21 03:28 Intake & Output 12/31/20 01/01/21 01/01/21 18:59 06:59 18:59 Intake Total 80 Output Total 300 150 Balance -220 -150 Weight 70.5 kg Intake: Intake, IV Titration 50 Amount Cefepime 1 gm In Sodium 50 Chloride 0.9% 50 ml @ 12. 5 mls/hr IVPB Q12HR [facility] Rx#:[id number] Oral 30 Output: Urine 300 150 Other: Voiding Method Urinal Urinal # Voids 1 # Bowel Movements 2 - Exam In general patient is alert and oriented x3 in no distress HEENT head normocephalic and atraumatic Neck is supple no JVD no goiter no lymphadenopathy no carotid bruit Chest examination is clear to auscultation no crackles no wheezing Cardiac exam reveals regular heart sounds S1 and S2 no gallops no murmurs Abdomen is soft nontender no organomegaly with normal bowel sounds Extremity exam reveals no edema no cyanosis or clubbing Neurological examination reveals no gross focal deficits - Labs CBC & Chem 7: 01/01/21 07:16 01/01/21 07:16 Labs: Abnormal Lab Results - Last 24 Hours (Table) 12/31/20 12/31/20 12/31/20 Range/Units 08:27 08:27 08:27 WBC 13.8 H (3.8-10.6) k/uL RBC 2.94 L (4.30-5.90) m/uL Hgb 8.9 L (13.0-17.5) gm/dL Hct 27.7 L (39.0-53.0) % RDW 20.8 H (11.5-15.5) % Plt Count 141 L (150-450) k/uL Neutrophils # 12.5 H (1.3-7.7) k/uL Lymphocytes # 0.5 L (1.0-4.8) k/uL Chloride 112 H (98-107) mmol/L Carbon Dioxide 21 L (22-30) mmol/L BUN 61 H (9-20) mg/dL Creatinine 2.27 H (0.66-1.25) mg/dL Glucose 122 H (74-99) mg/dL Alkaline Phosphatase 127 H (38-126) U/L Lactate Dehydrogenase 1137 H (313-618) U/L C-Reactive Protein 5.8 H (<1.0) mg/dL Total Protein 6.2 L (6.3-8.2) g/dL Albumin 2.8 L (3.5-5.0) g/dL Procalcitonin 1.38 H (0.02-0.09) ng/mL Assessment and Plan Plan: 1. COVID-19 infection 2. Bilateral interstitial pneumonia, possibly related to COVID-19, however bacterial superimposed infection cannot be ruled out 3. Evidence of sepsis, with leukocytosis, hypotension, and elevated lactic acid 4. Acute on chronic renal failure, creatinine on admission in August was 1.5 nephrology consultation requested 5. Severe hyperkalemia 6. Underlying history of COPD 7. Recent history of stroke in August 2020 8. Underlying history of hypertension 9. Underlying history of hyperlipidemia 10. Underlying history of coronary artery disease with previous history of coronary artery bypass graft surgery 11. Underlying history of multiple lumbar compression vertebral fractures. 12. Previous history of anemia and history of GI bleed, Hgb down to 7.7 will consult GI At this time patient is admitted to telemetry floor He received IV fluid boluses He was started on IV heparin and IV Cardizem drip He was started on IV antibiotic Rocephin and Zithromax He was started on steroids prednisone 40 mg daily Pulmonary, nephrology, infectious disease and cardiology consultation requested. Prognosis is poor due to advanced age, severity of illness, and multiple underlying medical conditions Today I spoke was patient nephew for a prolonged phone call. Issues regarding nutrition were discussed in details, poor oral intake on the part of the patient was discussed despite appetite stimulant. Insertion of nasogastric tube for feeding several days ago and the fact that patient has pulled it out and is refusing to have it put back in again was discussed, also possibility of a PEG tube for feeding was discussed, the nephew Kane Reveles will discuss this issues with his family and with patient and will get back with me this afternoon. Also, issues regarding CODE STATUS were discussed in details, I strongly urged h is nephew to change his CODE STATUS to no code as he would most likely not survive having a cold and being on a ventilator. The nephew also will discuss all these issues with his other family members and with patient and we will get back with me this afternoon
[2021-01-01] MEDS: DEXAMETHASONE SOD PHOSPHATE 10 MG/ML 1 ML VIAL IV SCH (20:46)
--- NOTE | 2021-01-02 02:04 | PN ---
PROGRESS NOTE DATE OF SERVICE: 01/01/2021 REASON FOR FOLLOWUP: Pneumonia. INTERVAL HISTORY: The patient is afebrile. The patient is breathing comfortably. Still requiring high- flow nasal cannula oxygen. Denies any chest pain. No worsening cough. No abdominal pain, no diarrhea. PHYSICAL EXAMINATION: Blood pressure 96/57, pulse of 88, temperature 97.9. He is 95% on 15 L high-flow oxygen. General description is an elderly male lying in in no distress. Respiratory system: Unlabored breathing, decreased breath sounds at the bases, no wheeze. HEART: S1, S2. Regular rate and rhythm. ABDOMEN: Soft, no tenderness. EXTREMITIES: No edema of the feet. LABS: Hemoglobin is 8.5, white count 12.7. DIAGNOSTIC IMPRESSION AND PLAN: Patient with Gram-negative pneumonia. Sputum has been positive for Serratia and Pseudomonas. Patient covered with cefepime. White count showing a downward trend. Slight worsening of respiratory status and is being monitored closely. Continue supportive care. MMODL / IJN: [id number] /
[2021-01-02] MEDS: CEFEPIME 1 GM in SODIUM CHLORIDE 0.9% 50 ML IVPB SCH ×2 (09:08→20:52)
[2021-01-02] MEDS: ASCORBIC ACID 500 MG TAB PO SCH (09:09)
[2021-01-02] MEDS: ASPIRIN 81 MG PO SCH (09:09)
[2021-01-02] MEDS: ZINC SULFATE 220 MG CAP PO SCH (09:09)
[2021-01-02] MEDS: DEXAMETHASONE SOD PHOSPHATE 10 MG/ML 1 ML VIAL IV SCH ×2 (09:09→20:52)
[2021-01-02] MEDS: MEGESTROL 400 MG/10 ML CUP PO SCH ×2 (09:09→20:53)
[2021-01-02] MEDS: ENOXAPARIN 30 MG/0.3 ML SYRINGE SQ SCH (09:10)
[2021-01-02] MEDS: METOPROLOL TARTRATE 50 MG TAB PO SCH ×2 (09:10→20:53)
[2021-01-02] MEDS: FUROSEMIDE 20 MG TAB PO SCH (09:10)
[2021-01-02] MEDS: CHOLECALCIFEROL 25 MCG (1000 IU) TABLET PO SCH (09:10)
--- NOTE | 2021-01-02 11:12 | XR ---
EXAMINATION TYPE: XR chest 1V portable DATE OF EXAM: 01/02/2021 COMPARISON: 12/31/2020 HISTORY: Shortness of breath TECHNIQUE: Single frontal view of the chest is obtained. FINDINGS: Bilateral airspace disease with small effusion stable. Heart size enlarged and there is po stoperative change. Asymmetric right apical pleural thickening stable. Vascular calcification seen. C alcified nodule left upper quadrant indeterminate. IMPRESSION: Stable diffuse infiltrates likely representing a combination of pulmonary fibrosis with superimposed interstitial pneumonitis and multifocal infiltrates.
[2021-01-02] MEDS: SODIUM CHLORIDE 0.9% 1,000 ML IV SCH ×2 (11:59→20:55)
[2021-01-02 12:18] LABS: Albumin 2.7 g/dL (3.5-5.0); Calcium 8.4 mg/dL (8.4-10.2); Potassium 4.4 mmol/L (3.5-5.1); Total Bilirubin 0.3 mg/dL (0.2-1.3); Total Protein 5.9 g/dL (6.3-8.2)
[2021-01-02 12:31] LABS: Anisocytosis Moderate; Basophils % (A) 0 %; Eosinophils % (A) 0 %; HCT 28.7 % (39.0-53.0); HGB 8.6 gm/dL (13.0-17.5); Hypochromasia Marked; Lymphocytes # (A) 0.4 k/uL (1.0-4.8); Lymphocytes % (A) 4 %; MCH 29.8 pg (25.0-35.0); Macrocytosis Moderate; Mean Platelet Volume 8.5; Monocytes # (A) 0.6 k/uL (0-1.0); Monocytes % (A) 6 %; Neutrophils # (A) 8.8 k/uL (1.3-7.7); Neutrophils % (A) 89 %; Platelet Count 105 k/uL (150-450); Poikilocytosis Slight; RBC 2.89 m/uL (4.30-5.90); RDW 21.5 % (11.5-15.5)
[2021-01-02 12:42] LABS: MCV 99.4 fL (80.0-100.0)
--- NOTE | 2021-01-02 14:36 | P.PN ---
Subjective Progress Note Date: 01/02/21 Principal diagnosis: Acute hypoxic respiratory failure secondary to COVID-19 pneumonia, and recurrent aspiration pneumonia. This is a pleasant 89-year-old gentleman who follows with Dr. Boss as his primary care provider. He has history of hypertension, CVA, coronary artery di sease with previous coronary artery bypass grafting, COPD, seizure disorder, previous smoker, lung cancer. He presented to the emergency room yesterday with complaints of increasing shortness of breath, chest tightness and wheezing. He was found to be in atrial fibrillation with a rapid ventricular response. Chest x-ray revealed bilateral interstitial pneumonia. Cardiomegaly. Small right pleural effusion and pleural reaction at the right lung base. White count 17.4. Hemoglobin 9.1. Sodium 139. Potassium 5.4. Creatinine 3.75. Presenting creatinine was 5.09. Pro-calcitonin greater than 100. Troponin 0.105. C- reactive protein 58.6. Andres virus positive. He is seen today in consultation on the selective care unit. The patient is a poor historian. Unable to determine when his symptoms started. He is currently resting fairly comfortably in bed. Awake and alert in no acute distress. Maintaining O2 saturations in the high 90s on 3 L/m per nasal cannula. Afebrile. Slightly tachycardic. Ultrasound of the kidneys revealed no hydronephrosis or nephrolithiasis bilaterally. His initiated on a Cardizem drip at 10 mg per hour, heparin drip and antibiotics in the form of ceftriaxone and azithromycin. His initiated on Decadron 10 mg IV daily. Progress note dated 12/17/2020. 89-year-old black male, seen by our nurse practitioner yesterday in consultation. The patient has a history of hypertension, CVA, coronary disease, previous bypass grafting, COPD, seizure disorder, and lung cancer. The patient apparently presented to the emergency department with complaints of increasing shortness of breath, chest tightness, and wheezing. He was found to have atrial fibrillation with RVR, and also was positive for coronavirus infection. The patient seems be recently comfortable this time. He is on 3 L. Saturations are 97%. Heart rate 86. Respiratory rate 18. No audible wheezing, use of accessory muscles, or conversational dyspnea. The patient is not a particularly good historian. White count 15.8, hemoglobin 7.9, hematocrit 24.8, and platelet count 120,000. PTT is 37.8. Sodium 141, potassium 3.4, chlorides 104, CO2 25, anion gap 12, BUN 97, and creatinine 2.67. Initial lactic acid 2.2. Repeat lactic acid 1.1. Chest x-ray shows bilateral interstitial pneumonia with cardiomegaly. There is a small right-sided pleural effusion. Progress note dated 12/18/2020. 89-year-old black male, seen in consultation 2 days ago. I saw the patient yesterday in follow-up. The patient has a history of essential hypertension, CVA, coronary artery disease, previous bypass grafting, COPD, seizure disorder, and lung cancer. The patient presented to the emergency department with complaints of increasing shortness of breath, chest tightness and wheezing, and was found to have atrial fibrillation with RVR, and also tested positive for coronavirus infection. Currently, the patient appears to be relatively comfortable. He is on 3 L nasal cannula, and his saturations are 100%. Blood pressure 112/72, heart rate 89, respiratory rate 18, and his temperature is 97.8. Labs show a white count of 14.6, hemoglobin 7.8, hematocrit 25.6, and platelet count 121,000. D-dimer is 2.0. Sodium 141, potassium 3.8, chlorides 108, CO2 26, anion gap 7, BUN 76, creatinine 2.19. No recent chest x-ray to review. The patient is seen today 12/19/2020 in follow-up on the cardiac floor. He is currently resting comfortably in bed. Awake, alert and in no acute distress. He is maintaining O2 saturation in the 90s on 3 L/m per nasal cannula. Lactated Ringer's at 75 ML's per hour. He's been afebrile. Hemodynamically stable. Chest x-ray reveals evidence of congestive heart failure and underlying COPD. Chronic pleural reaction. Blood cultures reveal no growth. White count 12.4. Hemoccult was 7.7. Platelets 113. Sodium 141. Potassium 4.0. Creatinine 2.0 9. ProBNP 36,700. He remains on Decadron, Lovenox, vitamin supplements. Antibiotics in the form of Unasyn. The patient is seen today 12/20/2020 in follow-up on the selective care unit. He is currently resting comfortably in bed. Awake and alert in no acute distress. Rectal maintaining O2 saturations in the 90s on 3 L/m per nasal cannula. She's been afebrile. Hemodynamically stable. Blood cultures reveal no growth. No new labs today. He remains on Decadron, Lovenox, vitamin supplements. Antibiotics in the form of Unasyn. Lactated Ringer's at 75 ML's per hour. The patient is seen today 12/21/2020 in follow-up on the selective care unit. He has currently resting comfortably in bed. Awake and alert in no acute distress. He is on 2 L/m per nasal cannula. O2 saturation 98%. White count 17.0. Hemoglobin 8.9. Sodium 140. Potassium 3.7. Creatinine 1.92. He is continued on Unasyn. Remains on Decadron, Lovenox, vitamin supplements. Echocardiogram reveals moderate impaired left ventricular systolic function with ejection fraction 40-45%. Severe pulmonary hypertension. The patient is seen today 12/22/2020 in follow-up on the selective care unit. He is currently resting comfortably in bed. Maintaining O2 saturations in the 90s on 2 L/m per nasal cannula. Chest x-ray shows cardiomegaly with chronic parenchymal changes with right greater than left bilateral multifocal opacities and tiny bilateral pleural effusions. No change compared to previous. 0.9 normal saline @ 20 ML's per hour. He is continued on Decadron, Lovenox, vitamin supplements. Antibiotics in the form of Unasyn. Blood cultures reveal no growth. White count 18.5. Hemoglobin 8.8. Lymphocytes 0.4. Sodium 141. Potassium 3.9. Creatinine 1.82. The patient is seen today 12/23/2020 in follow-up on the selective care unit. He is awake and alert in no acute distress. Resting quite comfortably in bed. Maintaining O2 saturations in the 90s on 4 L/m per nasal cannula. No IV fluids. Pro-calcitonin down to 3.6. He remains on Unasyn. He remains on dexamethasone, Lovenox, vitamin supplements. Transitioned to oral diuretics. 12/24 2020, the patient is being seen for a follow-up. The patient remains on 4 L of [id number] cannula to maintain a saturation above 90%. Is a case of COVID-19 related pneumonia with secondary story failure. His superinfection is also suspected knowing that the patient's pro-calcitonin level was elevated significantly. The most recent chest x-ray showing diffuse but the pulmonary infiltrates right more than left. The pro-calcitonin level is down to 3.6 from 12/22/2020. The white cell count of 18.5 with a hemoglobin of 8.9. Platelet count is stable at 178. The patient continues to have some lymphopenia. Creatinine is down to 1.8 with the rest of the electrodes being within normal limits. She remains on empiric antibiotic coverage with IV Unasyn initially and later on Augmentin. He is on Decadron 4 mg by mouth daily. He is on Lasix 20 m g by mouth daily and he is also on Lovenox 30 mg subcu for DVT prophylaxis. 12/25/2020, the patient is being seen for a follow-up. He is a case of COVID-19 infection/pneumonia with superinfection, possibly a pneumonia based on elevated calcitonin level. The chest x-ray was showing patchy bilateral infiltrates and cardiomegaly. This was the x-ray from yesterday. Based on this, the patient was kept on a combination of Decadron currently on 2 mg and the patient is also on a course of Augmentin 875 mg twice a day after being treated with IV Unasyn. This morning, the patient is on oxygen on 4 L with a pulse ox of 94%. Remains on Lovenox 30 mg subcu for DVT prophylaxis. With that was of 14.7. Hemoglobin dropped down to 6.8 with a platelet count of 172. Coagulation profile has been adequate from prior evaluations. His creatinine is up to 2.27 with a BUN of 62 and the patient had a follow-up pro-calcitonin level of 3.6. Stool for occult blood was also negative. Units of packed RBC has already been ordered for this patient. 12/26/2020, the patient essentially looks the same as yesterday and he remains on 5 L of oxygen by nasal cannula. His swallow mechanism has been suspected to be 4 and was suspected felt aspiration and for that reason we sent him for a swallow evaluation and the patient is having a modified barium swallow done today. He is a case of COVID-19 related pneumonia. His pro calcitonin level was elevated and is improving and is down to 1.53 also and we suspected superinfection and for that reason the patient was given antibiotics initially Zosyn and later on Augmentin. His chest x-ray from today is showing interstitial infiltrates bilaterally more so on the right where the right lung is essentially infiltrated in the left upper lobe was also infiltrated in the left lower lobe essentially spared. He is receiving Decadron at a dose of 2 mg by mouth daily. He is also on Lovenox and we had to stop it because of a drop in hemoglobin down to 6.8 and this can be essentially resumed as the patient has no evidence of bleeding. He received a unit of packed RBC and hemoglobin responded nicely and felt to 9.2. His creatinine is stable at 2.1 which is improved compared to yesterday. 12/27/2020 the patient remains on oxygen at 5 L which is essentially the same as yesterday. With suspected aspiration. With a bedside swallow evaluation following that the patient was given a modified barium swallow and the patient was found to have some oral and pharyngeal phases that were appropriate and there was appropriate for propagation up with material. There was normal mastication. No evidence of any aspiration. As such, the patient was cleared. At this point in time, the patient is still being treated for a combination of COVID-19 related pneumonia with a suspected superinfection. The patient remains on Augmentin leg grams twice a day. Sputum sample was sent and the patient sputum sample came back positive for gram-negative bacillus including sedation marcescens and this microorganism was resistant to Augmentin. The patient is also on Decadron 2 mg by mouth daily and the patient is also taking Lovenox 30 mg subcu on a daily basis. Chest x-ray findings and essentially unchanged the patient has diffuse interstitial infiltrates bilaterally more so on the right compared to the left. His d-dimer is at 4.22. Creatinine is stable at 2.1 . He continues to have some congested cough. His pro calcitonin level has dropped down to 1.53. As stated, chest x-ray findings are essentially unchanged and stable. He remains quite debilitated at this point in time. He passed a swallow evaluation. 12/28/2020, the patient is being seen for a follow-up. He remains on 5 L of oxygen by nasal cannula. His chest x-ray was showing diffuse pulmonary infiltrates most on the right compared to the left. Noted is a case of COVID-19 related pneumonia in his sputum also showed Serratia and subsequent culture showed Pseudomonas. Both of them are sensitive to Levaquin. Nevertheless, due to presence of pseudomonas, would like to cover this patient with a broader spectrum antibiotics with IV cefepime. Otherwise, the patient is essentially the same as yesterday. White cell count is elevated with a white cell count of 16. Hemoglobin stable at 8.7 and the patient has not had any further episodes of GI bleeds. His creatinine is also stable at 2.04 with a BUN of 58 and the patient's serum bicarb is 22. Electrodes are normal. His d-dimer is at 5.88. LDH level is at 1259 which is slightly improved compared to earlier studies. He is weak. His debilitated. Oral intake is quite diminished. He has a congested cough. Heart is using his incentive spirometer. He did pass a swallow evaluation. He remains on Decadron. He remains on Lovenox 30 mg subcutaneous for DVT prophylaxis. This was restarted yesterday. 12/29/2020 the patient is on 8 L of oxygen by nasal cannula. Dobbhoff insertion catheter was unsuccessful. I switched him to a NG tube catheter which she was keeping it on till evening and later on he pulled it out because of discomfort. As such, enteral feeding was also discontinued. He is going back to his regular oral habits which is essentially poor at this point in time. There is also a concern of aspiration. He did pass a swallow evaluation nevertheless, he is eating habits has been poor and his caloric intake has been also poor. Aspiration is to be given for PEG tube insertion. GI is on the case. He is known to have also pseudomonas in his sputum in addition to Serratia. I put him on IV cefepime yesterday. He does have pneumonia which is probably a combination of gram-negative and COVID-19 related pneumonia. On his blood work, the patient has a white cell count 14.8. His hemoglobin is at 8.5. He has a creatinine of 2.0 which is stable compared to yesterday and the sodium level is at 144. Has implemented markings from few days back showed an LDH level of 1259. His long-term prognosis poor. He is quite debilitated. He is 89 years of age. He has multiple medical problems and comorbidities and he has been significantly weak and debilitated especially with this ongoing COVID-19 pneumonia with superinfection with gram-negative bacteria. 12/30/2020 the patient is on oxygen at 10 L. As mentioned earlier, attempt to keep the patient has failed and the patient pulled out his NG tube and currently he is taken oral intake and modest amounts. Meanwhile, the patient is currently on 10 L of oxygen by nasal cannula. Repeat chest x-ray from today is showing bilateral pulmonary infiltrates right more than left and there is obvious interval worsening in the pulmonary infiltration on the right and there is obvious interval worsening of airspace disease bilaterally and this is most likely consistent with COVID-19 related pneumonia. His white cell count is at 14.8 with a hemoglobin of 8.5. His creatinine is still stable at 2.1. Inflammatory markers are still pending from today. LDH from few days back was at 1259. He remains on IV cefepime. He remains on Decadron and the dose will be adjusted up to 6 mg IV every 12 hours specially with his interval progression of the bilateral pulmonary infiltrates. His hemoglobin is at 8.5. He is quite lethargic and debilitated. He sleeps most of the time. His breathing seems to be more labored compared to yesterday and he seems to be in mild degree of respiratory distress at this point in time. CODE STATUS is full and obviouslyto be addressed pressure with his interval progression and worsening of the pneumonia. On today's evaluation 2020, the patient is still doing poorly on a 10 L per minute nasal cannula. Afebrile. Hemodynamically stable. Breathing is nonlabored. Oral intake is almost minimal. He is laying comfortably in bed. Hemodynamically stable. His renal function is showing a creatinine of 2.2 with a mean of 61. Serum bicarbonate 21. The LDH level is 1137 with a CRP level of 5.8. Chest x-ray from yesterday was showing interval worsening of the right lung consolidation. Patient is afebrile. Very much weak and debilitated. Pulse ox is order of 88-90% on high flow oxygen at 10 L per minute nasal cannula. On 01/01/2021 patient seen in follow-up on selective care unit, he appears to be more short of breath, his requiring 15 L high flow nasal cannula and his pulse ox is 90-93%, he is tachypneic, he appears very weak, debilitated, he is curled up in bed, in that he is unable to sit up unassisted. He is afebrile, his been for the most part bedbound, his last chest x-ray was done yesterday showing bilateral airspace disease, no pneumothorax or pleural effusion. Current erapies include Decadron 2 mg daily, he is on oral Lasix 20 mg daily, and he remains on antibiotics in the form of cefepime for aspiration pneumonia, his sputum culture showed Serratia marcescens and the pseudomonas aeruginosa both sensitive to cefepime, blood cultures were negative. The rest of the patient's blood work has been reviewed showing relatively stable white count of 12.7, hemoglobin is 8.5, sodium is 142, potassium is 4.1, chloride is 113, CO2 is 20, BUN of 60 creatinine is 2.21. His pro calcitonin is improving and was down to 1.38 on 12/31/2020. Overall clinically patient appears to be generally declining. He is very weak, he has oral food intake has been extremely diminished, he had a NG tube in place which he pulled out, and apparently he is refusing placement of another NG tube or another gastric tube including a PEG tube. Were told that she is still a full code, however at this point we're not sure if the patient understands what that entails in his condition, and status needs to be clarified with his next of kin as his prognosis is poor Patient was reevaluated today on 01/02/2021, patient remains on selective care unit, remains on 15 L high flow nasal cannula, looks extremely frail and cachectic. Patient is basically a failure to thrive. I believe his CODE STATUS was discussed with the family by the admitting physician, and the family is agreeing to PEG tube placement, and the patient remains full code in the meantime. Although I am quite convinced that this patient is extremely ill, frail, cachectic, and his prognosis if he ends up on mechanical ventilation would be extremely poor and would almost be futile condition. Hence I recommended that the admitting physician gets notified about PEG tube placement, and obviously he will need one to be able to improve his nutritional status. WBC count today is 10 hemoglobin is 8.6, electrolytes are normal renal profile is about the same with BUN of 60 creatinine 2.16, follow-up chest x-ray today continues to show diffuse infiltrates involving mostly the right lung and to some extent the left lung consistent with multifocal pneumonia. Underlying fibrosis is not entirely ruled out Objective - Vital Signs Vital signs: Vital Signs Temp 97.4 F L 01/02/21 09:06 Pulse 74 01/02/21 13:00 Resp 20 01/02/21 13:10 BP 100/64 01/02/21 12:00 Pulse Ox 94 L 01/02/21 13:21 Intake & Output 01/01/21 01/02/21 01/02/21 18:59 06:59 18:59 Intake Total 130 360 Output Total 150 380 Balance -20 -380 360 Weight 70.5 kg Intake: Intake, IV Titration 50 Amount Cefepime 1 gm In Sodium 50 Chloride 0.9% 50 ml @ 12. 5 mls/hr IVPB Q12HR [facility] Rx#:[id number] Oral 80 360 Output: Urine 150 380 Other: Voiding Method Urinal Urinal Urinal # Voids 2 2 # Bowel Movements 1 2 - Exam GENERAL EXAM: Revealed an 89-year-old -[place] male, frail looking, cachectic, on 15 L high flow nasal cannula, in mild distress. HEAD: Normocephalic/atraumatic. HEENT: PERRLA, EOMI, anicteric, no neck masses, no JVD, no stridor. CHEST: No chest wall deformity. Symmetrical expansion. LUNGS: Basilar crackles and rhonchi noted. CVS: Normal S1 and S2, no S3 gallop. ABDOMEN: Scaphoid abdomen nontender, no megaly, no rebound no guarding. EXTREMITIES: Muscle wasting noted in upper and lower extremities, no clubbing edema or cyanosis. SKIN: No rashes CENTRAL NERVOUS SYSTEM: Alert and oriented 3 and a gross deficits. PSYCHIATRIC: Normal mood, affect and normal mental status exam. - Labs CBC & Chem 7: 01/02/21 11:22 01/02/21 11:22 Labs: Abnormal Lab Results - Last 24 Hours (Table) 01/02/21 01/02/21 Range/Units 11:22 11:22 RBC 2.89 L (4.30-5.90) m/uL Hgb 8.6 L (13.0-17.5) gm/dL Hct 28.7 L (39.0-53.0) % MCHC 30.0 L (31.0-37.0) g/dL RDW 21.5 H (11.5-15.5) % Plt Count 105 L (150-450) k/uL Neutrophils # 8.8 H (1.3-7.7) k/uL Lymphocytes # 0.4 L (1.0-4.8) k/uL Chloride 116 H (98-107) mmol/L Carbon Dioxide 18 L (22-30) mmol/L BUN 60 H (9-20) mg/dL Creatinine 2.16 H (0.66-1.25) mg/dL Glucose 162 H (74-99) mg/dL Total Protein 5.9 L (6.3-8.2) g/dL Albumin 2.7 L (3.5-5.0) g/dL Assessment and Plan Assessment: Impression: Acute hypoxic respiratory failure secondary to acute COVID-19 pneumonia Acute bacterial pneumonia secondary to Serratia and pseudomonas as noted from positive sputum cultures. Acute on chronic systolic congestive heart failure. Chronic atrial fibrillation. History of CVA. Coronary artery disease and previous CABG. Former smoker. Remote history of lung cancer. Chronic anemia. Failure to thrive with poor nutritional support. Patient will likely benefit from enteral feeding via PEG tube. Recommendation: Continue the COVID-19 cocktail. Continue oxygen and titrate accordingly maintain O2 saturating above 90%. Presently on 15 L. Continue antibiotics/cefepime. Continue GI and DVT prophylaxis. supplemental nutrition. Will recommend PEG tube placement. CODE STATUS has been clarified with the next of kin/nephew patient is full code. Although my belief if the patient and On mechanical ventilation, he would have extremely poor prognosis, and the condition would be considered in medical futility situation. hold diuretics for now, as the patient seems to be dehydrated. Consult gastroenterology or general surgery for PEG tube placement. will continue to follow. Time with Patient: Less than 30
--- NOTE | 2021-01-02 15:30 | PN ---
PROGRESS NOTE Patient is seen for followup for chronic kidney disease and acute kidney injury. The patient's renal function is stable. He is currently resting. His oxygen has been decreased slightly and he seems to be tolerating it well consult. There are plans for possible PEG tube placement. PHYSICAL EXAMINATION: On examination today, blood pressure 100/64, heart rate 74 per minute. He is afebrile. Examination shows no evidence of edema bilateral lower extremities. Patient is awake, moving all 4 extremities. Abdomen is soft, nontender. LAB: Show sodium 143, potassium 4.4, chloride 1 6, CO2 is 18, BUN 60, creatinine 2.16, hemoglobin of 8.6 g/dL. ASSESSMENT: 1. Acute kidney injury, ATN, currently improved. 2. COVID pneumonia requiring high flow oxygen, fairly stable. 3. Chronic diastolic congestive heart failure with moderate mitral regurgitation, maintained on low-dose loop diuretics, tolerating well. 4. Hypokalemia, status post replacement. 5. Chronic kidney disease, stage 4. Baseline creatinine appears to be around 2 secondary to nephrosclerosis. PLAN: Continue current dose of Lasix. Monitor labs periodically. His renal function is fairly stable. We do not need daily labs. MMODL / IJN: [id number] /
--- NOTE | 2021-01-02 15:50 | P.PN ---
Subjective Progress Note Date: 01/02/21 Principal diagnosis: Anemia, possible need for PEG tube Patient was seen and examined lying in bed. No acute changes through the night. He is still dependent on 8 L of high flow nasal cannula. There is been discussion regarding possible NG tube placement versus PEG tube placement for increased nutrition due to patient's lack of appetite and desire to eat. Patient did undergo a barium swallow study with no evidence of aspiration, overall normal study. Patient has been eating with assistance, nurses at bedside this afternoon feeding him his lunch which she states he is doing very well and just needs encouragement. Objective - Vital Signs Vital signs: Vital Signs Temp 97.4 F L 01/02/21 09:06 Pulse 74 01/02/21 13:00 Resp 20 01/02/21 13:10 BP 100/64 01/02/21 12:00 Pulse Ox 94 L 01/02/21 13:21 Intake & Output 01/01/21 01/02/21 01/02/21 18:59 06:59 18:59 Intake Total 130 360 Output Total 150 380 Balance -20 -380 360 Weight 70.5 kg Intake: Intake, IV Titration 50 Amount Cefepime 1 gm In Sodium 50 Chloride 0.9% 50 ml @ 12. 5 mls/hr IVPB Q12HR [facility] Rx#:[id number] Oral 80 360 Output: Urine 150 380 Other: Voiding Method Urinal Urinal Urinal # Voids 2 2 # Bowel Movements 1 2 - Exam General appearance: The patient is alert, oriented, appears in no acute distress. HET: Head is normocephalic and atraumatic. Conjunctiva pink. Sclera anicteric. Neck: Supple without lymphadenopathy. Abdomen: Soft, nontender, nondistended with bowel sounds. No guarding or rigidity. Extremities: Normal skin color and turgor. No pedal edema Skin: No rashes, no jaundice Neurological: No focal deficits. Alert and oriented 3. - Labs CBC & Chem 7: 01/02/21 11:22 01/02/21 11:22 Labs: Abnormal Lab Results - Last 24 Hours (Table) 01/02/21 01/02/21 Range/Units 11:22 11:22 RBC 2.89 L (4.30-5.90) m/uL Hgb 8.6 L (13.0-17.5) gm/dL Hct 28.7 L (39.0-53.0) % MCHC 30.0 L (31.0-37.0) g/dL RDW 21.5 H (11.5-15.5) % Plt Count 105 L (150-450) k/uL Neutrophils # 8.8 H (1.3-7.7) k/uL Lymphocytes # 0.4 L (1.0-4.8) k/uL Chloride 116 H (98-107) mmol/L Carbon Dioxide 18 L (22-30) mmol/L BUN 60 H (9-20) mg/dL Creatinine 2.16 H (0.66-1.25) mg/dL Glucose 162 H (74-99) mg/dL Total Protein 5.9 L (6.3-8.2) g/dL Albumin 2.7 L (3.5-5.0) g/dL Assessment and Plan (1) Decreased oral intake Narrative/Plan: Patient is only taking in about 50% of his nutrition due to decreased appetite and shortness of breath. Plan was for possible NG/Dobbhoff tube or PEG tube placement, however patient and family initially refused. Can consider PEG tube placement if patient is going to continue with poor oral intake. Do recommend one-on-one feeding to encourage oral intake. Nursing will discuss with case management/dietitian if feedings would be covered. Patient underwent barium swallow this admission, with no evidence of aspiration, overall normal study. Patient is doing much better with feeding, not having any difficulty swallowing per nursing. They are assisting patient and he does well with assistance and encouragement with eating. There is no plan at this time for any PEG tube placement due to patient's overall poor pulmonary condition, and do not believe he would tolerate procedure at this time. Also noted that patient is able to eat with assistance, and discuss with case management that tube feedings would likely not be covered. Continue one-on-one feeding. Current Visit: Yes Status: Acute Code(s): R63.8 - OTHER SYMPTOMS AND SIGNS CONCERNING FOOD AND FLUID INTAKE SNOMED Code(s): 762449280 (2) Anemia, normocytic normochromic Current Visit: No Status: Acute Code(s): D64.9 - ANEMIA, UNSPECIFIED SNOMED Code(s): 46773326 (3) COVID-19 Current Visit: Yes Status: Acute Code(s): U07.1 - COVID-19 SNOMED Code(s): 959376429 (4) Acute on chronic renal failure Current Visit: Yes Status: Acute Code(s): N17.9 - ACUTE KIDNEY FAILURE, UNSPECIFIED; N18.9 - CHRONIC KIDNEY DISEASE, UNSPECIFIED SNOMED Code(s): 959261187 (5) COPD (chronic obstructive pulmonary disease) Current Visit: Yes Status: Acute Code(s): J44.9 - CHRONIC OBSTRUCTIVE PULMONARY DISEASE, UNSPECIFIED SNOMED Code(s): 47535224 Plan: Continue symptomatic and supportive care Continue with diet as tolerated and encourage one-on-one assist with feeding No plans on PEG tube placement at this time as patient is doing well with one-on-one feeding with encouragement, normal barium swallow study. He should not medically stable at this time to proceed with endoscopy. Thank you for this consultation, we will be on standby. Please do not hesitate to call us back if further needed. Dr. Hall I agree with the dictator's note, documented as a scribe by Sobia Loza.
--- NOTE | 2021-01-02 17:24 | P.PN ---
Subjective Progress Note Date: 01/02/21 Fitz Blue, is an 89 year old male who presented to [facility] emergency room with a chief complaint of worsening shortness of breath, patient stated that he started having shortness of breath on the day of presentation that progressed to significant breathing difficulty EMS were sushma smith, they found patient to be in significant respiratory distress he was started on nonrebreather mask and was treated with IV Solu-Medrol and DuoNeb updrafts and was brought in to [facility] emergency room. In the emergency room patient was evaluated, his vital examination on presentation revealed a temperature of 98.6 pulse 142 respiration 18 blood pressure 99/78 pulse ox 94% on room air, laboratory data on presentation revealed a white blood count of 13.5 hemoglobin 10.5 platelet count 134 d-dimer 3.88, sodium 140 potassium 5.3 chloride 106 CO2 16 BUN 19 9 creatinine 5.09 glucose level was 136 plasma lactic acid was 3.5 troponin level was elevated at 0.105 C-reactive p rotein 58.6 Procalcitonin more than 100 and coronavirus PCR was positive. Chest x-ray was done in the emergency room and revealed bilateral interstitial pneumonia, cardiomegaly, small right pleural effusion and pleural reaction , EKG was done in the emergency room and revealed atrial fibrillation with rapid ventricular response and nonspecific ST abnormality . Patient was admitted to telemetry floor for further evaluation and treatment. Patient was admitted to [facility] in August 2020 after having a stroke, he was discharged to [facility] on the [facility] for rehabilit ation and was discharged home about 6 weeks ago. His past medical history is also significant for hypertension, hyperlipidemia, coronary artery disease with history of coronary artery bypass graft surgery, history of COPD, history of pulmonary hypertension, history of multiple lumbar compression vertebral fractures, history of anemia, history of carotid stenosis, history of osteoarthritis, and history of protein calorie malnutrition. On 12/17/2020 patient was seen and examined on the medical floor he is alert and oriented 3 in no apparent distress he is complaining of nausea otherwise he de nies any complaints there is no fever or chills no headache or dizziness no chest pain no shortness of breath no cough no vomiting no abdominal pain no diarrhea no blood in the stools no burning with urination no frequency or urgency and no hematuria. Kidney function has improved significantly since yesterday, otherwise no change in condition. On 12/18/2020 patient was seen and examined on the medical floor he is alert and oriented 3 in no apparent distress he is complaining of nausea otherwise he denies any complaints there is no fever or chills no headache or dizziness no chest pain , he has some shortness of breath no cough no vomiting no abdominal pain no diarrhea no blood in the stools no burning with urination no frequency or urgency and no hematuria. Kidney function has improved significantly since yesterday, otherwise no change in condition. On 12/19/2020 patient was seen and examined on the medical floor he is alert and oriented 3 in no apparent distress he is complaining of nausea otherwise he denies any complaints there is no fever or chills no headache or dizziness no chest pain , he has some shortness of breath no cough no vomiting no abdominal pain no diarrhea no blood in the stools no burning with urination no frequency or urgency and no hematuria. Kidney function has improved significantly since yesterday, otherwise no change in condition. BNP is significantly elevated, patient still having shortness of breath, will check Echocardiogram and consult cardiology. On 12/20/2020 patient was seen and examined on the medical floor he is alert and oriented 3 in no apparent distress he is complaining of nausea otherwise he denies any complaints there is no fever or chills no headache or dizziness no chest pain , he has some shortness of breath no cough no vomiting no abdominal pain no diarrhea no blood in the stools no burning with urination no frequency or urgency and no hematuria. Kidney function has improved significantly since yesterday, otherwise no change in condition. BNP is significantly elevated, patient still having shortness of breath, will check Echocardiogram and consult cardiology. patient was started on IV lasix, awaiting Echo. On 12/21/2020 patient was seen and examined on the medical floor he is alert and oriented 3 in no apparent distress he is complaining of nausea otherwise he denies any complaints there is no fever or chills no headache or dizziness no chest pain , he has some shortness of breath no cough no vomiting no abdominal pain no diarrhea no blood in the stools no burning with urination no frequency or urgency and no hematuria. Kidney function has improved significantly since yesterday, otherwise no change in condition. BNP is significantly elevated, patient still having shortness of breath, will check Echocardiogram and consult cardiology. patient was started on IV lasix, repeat CXR ordered for tomorrow. On 12/22/2020 patient was seen and examined on the medical floor he is alert and oriented 3 in no apparent distress he is complaining of nausea otherwise he denies any complaints there is no fever or chills no headache or dizziness no chest pain , he has some shortness of breath no cough no vomiting no abdominal pain no diarrhea no blood in the stools no burning with urination no frequency or urgency and no hematuria. Kidney function has improved significantly since yesterday, otherwise no change in condition. BNP is significantly elevated, patient still having shortness of breath, will check Echocardiogram and consult cardiology. patient was started on IV lasix, repeat CXR ordered for tomorrow. at this time will switch to oral lasix and oral Decadron continue to monitor, possi ble discharge in the next 1-2 days. On 12/23/2020 Patient was seen and examined on the medical floor, he is alert and oriented x 3 in no distress, he denies any complaints there is no fever or chills no headache or dizziness no chest pain no shortness of breath no palpitation no cough no nausea or vomiting no abdominal pain no diarrhea no blood in the stools no burning with urination no frequency or urgency and no hematuria, there is no weakness or numbness in any of the extremities no change in vision speech or gait. White blood count is still significantly elevated pro calcitonin is elevated chest x-rays revealing some worsening infectious disease following awaiting further recommendation will continue to monitor On 12/24/2020 Patient was seen and examined on the medical floor, he is alert and oriented x 3 in no distress, he denies any complaints there is no fever or chills no headache or dizziness no chest pain no shortness of breath no palpitation no cough no nausea or vomiting no abdominal pain no diarrhea no blood in the stools no burning with urination no frequency or urgency and no hematuria, there is no weakness or numbness in any of the extremities no change in vision speech or gait. White blood count is still significantly elevated pro calcitonin is elevated chest x-rays revealing some worsening opacities, infectious disease following awaiting further recommendation will continue to monitor, today Will decrease dose of Decadron and continue to monitor On 12/25/2020 Patient was seen and examined on the medical floor, he is alert and oriented x 3 in no distress, he denies any complaints there is no fever or chills no headache or dizziness no chest pain no shortness of breath no palpitation no cough no nausea or vomiting no abdominal pain no diarrhea no blood in the stools no burning with urination no frequency or urgency and no hematuria, there is no weakness or numbness in any of the extremities no change in vision speech or gait. Hemoglobin is down to 6.8 today 1 unit of red blood cell transfusion was ordered will follow closely On 12/27/2020 Patient was seen and examined on the medical floor, he is alert and oriented x 3 in no distress, he has very poor oral intake he denies any complaints there is no fever or chills no headache or dizziness no chest pain no shortness of breath no palpitation no cough no nausea or vomiting no abdominal pain no diarrhea no blood in the stools no burning with urination no frequency or urgency and no hematuria, there is no weakness or numbness in any of the extremities no change in vision speech or gait. Nutrition are recommending appetite stimulant patient will be started on Megace. On 12/28/2020 Patient was seen and examined on the medical floor, he is alert and oriented x 3 in no distress, he denies any complaints there is no fever or chills no headache or dizziness no chest pain no shortness of breath no palpitation no cough no nausea or vomiting no abdominal pain no diarrhea no blood in the stools no burning with urination no frequency or urgency and no hematuria, patient has very poor oral intake, recommendation by nutrition is to start a Dobbhoff tube with enteral feeding will proceed as above. On 12/29/2020 Patient was seen and examined on the medical floor, he is alert and oriented x 3 in no distress, he denies any complaints there is no fever or chills no headache or dizziness no chest pain no shortness of breath no palpitation no cough no nausea or vomiting no abdominal pain no diarrhea no blood in the stools no burning with urination no frequency or urgency and no he maturia, patient was unable to tolerate Dobbhoff tube he pulled it out last night, gastroenterology are following, will monitor patient oral intake and decide whether there is an indication for a PEG tube if patient agrees for that. On 12/30/2020 Patient was seen and examined on the medical floor, he is alert and oriented x 3 in no distress, he denies any complaints there is no fever or chills no headache or dizziness no chest pain no shortness of breath no palpitation no cough no nausea or vomiting no abdominal pain no diarrhea no blood in the stools no burning with urination no frequency or urgency and no hematuria, dietitian is stating that patient is still having very low oral intake. I have discussed possibility of PEG tube with patient, at this time he is stating that he does not want a PEG tube and he is going to try to eat more, will continue to monitor closely. On 12/31/2020 Patient was seen and examined on the medical floor, he is alert and oriented x 3 in no distress, he denies any complaints there is no fever or chills no headache or dizziness no chest pain no shortness of breath no palpitation no cough no nausea or vomiting no abdominal pain no diarrhea no blood in the stools no burning with urination no frequency or urgency and no hematuria, patient was encouraged again to increase his oral intake. On 01/01/2021 Patient was seen and examined on the medical floor, he is alert and oriented x 3 in no distress, he denies any complaints there is no fever or chills no headache or dizziness no chest pain no shortness of breath no palpitation no cough no nausea or vomiting no abdominal pain no diarrhea no blood in the stools no burning with urination no frequency or urgency and no hematuria, there is no weakness or numbness in any of the extremities no change in vision speech or gait., Patient still has very low oral intake, at this time after prolonged discussion with patient and with his nephew Kane Reveles, patient is now agreeable to proceeding with PEG tube for feeding. On 01/02/2021 Patient was seen and examined on the medical floor, he is alert and oriented x 3 in no distress, he denies any complaints there is no fever or chills no headache or dizziness no chest pain no shortness of breath no palpitation no cough no nausea or vomiting no abdominal pain no diarrhea no blood in the stools no burning with urination no frequency or urgency and no hematuria, per nursing staff patient is having a little bit more oral intake today otherwise no change in condition Objective - Vital Signs Vital signs: Vital Signs Temp 97.7 F 01/02/21 16:28 Pulse 98 01/02/21 16:28 Resp 22 01/02/21 16:28 BP 107/57 01/02/21 16:28 Pulse Ox 96 01/02/21 16:28 Intake & Output 01/01/21 01/02/21 01/02/21 18:59 06:59 18:59 Intake Total 130 360 Output Total 150 380 100 Balance -20 -380 260 Weight 70.5 kg Intake: Intake, IV Titration 50 Amount Cefepime 1 gm In Sodium 50 Chloride 0.9% 50 ml @ 12. 5 mls/hr IVPB Q12HR [facility] Rx#:[id number] Oral 80 360 Output: Urine 150 380 100 Other: Voiding Method Urinal Urinal Urinal # Voids 2 2 # Bowel Movements 1 2 - Exam In general patient is alert and oriented x3 in no distress HEENT head normocephalic and atraumatic Neck is supple no JVD no goiter no lymphadenopathy no carotid bruit Chest examination is clear to auscultation no crackles no wheezing Cardiac exam reveals regular heart sounds S1 and S2 no gallops no murmurs Abdomen is soft nontender no organomegaly with normal bowel sounds Extremity exam reveals no edema no cyanosis or clubbing Neurological examination reveals no gross focal deficits - Labs CBC & Chem 7: 01/02/21 11:22 01/02/21 11:22 Labs: Abnormal Lab Results - Last 24 Hours (Table) 01/02/21 01/02/21 Range/Units 11:22 11:22 RBC 2.89 L (4.30-5.90) m/uL Hgb 8.6 L (13.0-17.5) gm/dL Hct 28.7 L (39.0-53.0) % MCHC 30.0 L (31.0-37.0) g/dL RDW 21.5 H (11.5-15.5) % Plt Count 105 L (150-450) k/uL Neutrophils # 8.8 H (1.3-7.7) k/uL Lymphocytes # 0.4 L (1.0-4.8) k/uL Chloride 116 H (98-107) mmol/L Carbon Dioxide 18 L (22-30) mmol/L BUN 60 H (9-20) mg/dL Creatinine 2.16 H (0.66-1.25) mg/dL Glucose 162 H (74-99) mg/dL Total Protein 5.9 L (6.3-8.2) g/dL Albumin 2.7 L (3.5-5.0) g/dL Assessment and Plan Plan: 1. COVID-19 infection 2. Bilateral interstitial pneumonia, possibly related to COVID-19, however bacterial superimposed infection cannot be ruled out 3. Evidence of sepsis, with leukocytosis, hypotension, and elevated lactic acid 4. Acute on chronic renal failure, creatinine on admission in August was 1.5 nephrology consultation requested 5. Severe hyperkalemia 6. Underlying history of COPD 7. Recent history of stroke in August 2020 8. Underlying history of hypertension 9. Underlying history of hyperlipidemia 10. Underlying history of coronary artery disease with previous history of coronary artery bypass graft surgery 11. Underlying history of multiple lumbar compression vertebral fractures. 12. Previous history of anemia and history of GI bleed, Hgb down to 7.7 will consult GI At this time patient is admitted to telemetry floor He received IV fluid boluses He was started on IV heparin and IV Cardizem drip He was started on IV antibiotic Rocephin and Zithromax He was started on steroids prednisone 40 mg daily Pulmonary, nephrology, infectious disease and cardiology consultation requested. Prognosis is poor due to advanced age, severity of illness, and multiple underlying medical conditions Today I spoke was patient nephew for a prolonged phone call. Issues regarding nutrition were discussed in details, poor oral intake on the part of the patient was discussed despite appetite stimulant. Insertion of nasogastric tube for feeding several days ago and the fact that patient has pulled it out and is refusing to have it put back in again was discussed, also possibility of a PEG tube for feeding was discussed, the nephew Kane Reveles will discuss this issues with his family and with patient and will get back with me this afternoon. Also, issues regarding CODE STATUS were discussed in details, I strongly urged his nephew to change his CODE STATUS to no code as he would most likely not survive having a cold and being on a ventilator. The nephew also will discuss all these issues with his other family members and with patient and we will get back with me this afternoon
--- NOTE | 2021-01-02 22:23 | PN ---
PROGRESS NOTE DATE OF SERVICE: 01/02/2021 REASON FOR FOLLOWUP: Pneumonia. INTERVAL HISTORY: The patient is currently afebrile, breathing slightly hard. Though note a very good historian. No vomiting. No diarrhea or any other changes reported by the nursing staff. PHYSICAL EXAMINATION: Blood pressure 107/87 with a pulse of 98, temperature 97.7. He is 93% on 6 L nasal cannula. General description is an elderly male lying in bed in no distress. Respiratory system: Unlabored breathing, decreased intensity of breath sounds. No wheeze. Heart S1, S2. Regular rate and rhythm. ABDOMEN: Soft, no tenderness. LABS: Hemoglobin 8.6, white count 2.0, BUN of 60, creatinine is 2.17. DIAGNOSTIC IMPRESSION AND PLAN: Patient with Gram-negative pneumonia. Sputum has been Pseudomonas and Serratia, covered with cefepime. White count normalized. Monitor his clinical course closely. Continue supportive care. MMODL / IJN: [id number] /
[2021-01-03] MEDS: MEGESTROL 400 MG/10 ML CUP PO SCH ×2 (08:46→20:48)
[2021-01-03] MEDS: ENOXAPARIN 30 MG/0.3 ML SYRINGE SQ SCH (08:46)
[2021-01-03] MEDS: DEXAMETHASONE SOD PHOSPHATE 10 MG/ML 1 ML VIAL IV SCH ×2 (08:46→20:48)
[2021-01-03] MEDS: METOPROLOL TARTRATE 50 MG TAB PO SCH ×2 (08:47→20:48)
[2021-01-03] MEDS: CHOLECALCIFEROL 25 MCG (1000 IU) TABLET PO SCH (08:47)
[2021-01-03] MEDS: ZINC SULFATE 220 MG CAP PO SCH (08:47)
[2021-01-03] MEDS: ASPIRIN 81 MG PO SCH (08:47)
[2021-01-03] MEDS: ASCORBIC ACID 500 MG TAB PO SCH (08:47)
[2021-01-03] MEDS: CEFEPIME 1 GM in SODIUM CHLORIDE 0.9% 50 ML IVPB SCH ×2 (08:49→21:28)
--- NOTE | 2021-01-03 13:31 | PN ---
PROGRESS NOTE DATE OF SERVICE: 01/03/2021 REASON FOR FOLLOWUP: Pneumonia. INTERVAL HISTORY: The patient is currently afebrile. Patient is breathing comfortably down to 6 L cannula. The patient is slightly lethargic and unable to give a history. When asked specifically, denies any chest pain or any worsening cough. No abdominal pain and no diarrhea reported. PHYSICAL EXAMINATION: Blood pressure 115/78 with a pulse of 97, temperature 97.9. He is 98% on 6 L nasal cannula. General description is an elderly male lying in in no distress. Respiratory system: Unlabored breathing with decreased breath sounds at the base. No wheeze. HEART: S1, S2. Regular rate and rhythm. ABDOMEN: Soft, no tenderness. LABS: No new labs have been obtained today. His white count was normal as of yesterday. DIAGNOSTIC IMPRESSION AND PLAN: Patient with Gram-negative pneumonia. Sputum has been Serratia and Pseudomonas for which the patient is currently covered with cefepime. Dose adjusted with kidney function. Patient white count has normalized. We will continue to monitor the patient closely and continue supportive care. MMODL / IJN: [id number] /
--- NOTE | 2021-01-03 13:32 | P.PN ---
Subjective Progress Note Date: 01/03/21 Principal diagnosis: COVID-19 pneumonia, aspiration pneumonia This is a pleasant 89-year-old gentleman who follows with Dr. Boss as his primary care provider. He has history of hypertension, CVA, coronary artery disease with previous coronary artery bypass grafting, COPD, seizure disorder, previous smoker, lung cancer. He presented to the emergency room yesterday with complaints of increasing shortness of breath, chest tightness and wheezing. He was found to be in atrial fibrillation with a rapid ventricular response. Chest x-ray revealed bilateral interstitial pneumonia. Cardiomegaly. Small right pleural effusion and pleural reaction at the right lung base. White count 17.4. Hemoglobin 9.1. Sodium 139. Potassium 5.4. Creatinine 3.75. Presenting creatinine was 5.09. Pro-calcitonin greater than 100. Troponin 0.105. C- reactive protein 58.6. Andres virus positive. He is seen today in consultation on the selective care unit. The patient is a poor historian. Unable to determine when his symptoms started. He is currently resting fairly comfortably in bed. Awake and alert in no acute distress. Maintaining O2 saturations in the high 90s on 3 L/m per nasal cannula. Afebrile. Slightly tachycardic. Ultrasound of the kidneys revealed no hydronephrosis or nephrolithiasis bilaterally. His initiated on a Cardizem drip at 10 mg per hour, heparin drip and antibiotics in the form of ceftriaxone and azithromycin. His initiated on Decadron 10 mg IV daily. Progress note dated 12/17/2020. 89-year-old black male, seen by our nurse practitioner yesterday in consultation. The patient has a history of hypertension, CVA, coronary disease, previous bypass grafting, COPD, seizure disorder, and lung cancer. The patient apparently presented to the emergency department with complaints of increasing shortness of breath, chest tightness, and wheezing. He was found to have atrial fibrillation with RVR, and also was positive for coronavirus infection. The patient seems be recently comfortable this time. He is on 3 L. Saturations are 97%. Heart rate 86. Respiratory rate 18. No audible wheezing, use of accessory muscles, or conversational dyspnea. The patient is not a particularly good historian. White count 15.8, hemoglobin 7.9, hematocrit 24.8, and platelet count 120,000. PTT is 37.8. Sodium 141, potassium 3.4, chlorides 104, CO2 25, anion gap 12, BUN 97, and creatinine 2.67. Initial lactic acid 2.2. Repeat lactic acid 1.1. Chest x-ray shows bilateral interstitial pneumonia with cardiomegaly. There is a small right-sided pleural effusion. Progress note dated 12/18/2020. 89-year-old black male, seen in consultation 2 days ago. I saw the patient yesterday in follow-up. The patient has a history of essential hypertension, CVA, coronary artery disease, previous bypass grafting, COPD, seizure disorder, and lung cancer. The patient presented to the emergency department with complaints of increasing shortness of breath, chest tightness and wheezing, and was found to have atrial fibrillation with RVR, and also tested positive for coronavirus infection. Currently, the patient appears to be relatively comfortable. He is on 3 L nasal cannula, and his saturations are 100%. Blood pressure 112/72, heart rate 89, respiratory rate 18, and his temperature is 97.8. Labs show a white count of 14.6, hemoglobin 7.8, hematocrit 25.6, and platelet count 121,000. D-dimer is 2.0. Sodium 141, potassium 3.8, chlorides 108, CO2 26, anion gap 7, BUN 76, creatinine 2.19. No recent chest x-ray to review. The patient is seen today 12/19/2020 in follow-up on the cardiac floor. He is currently resting comfortably in bed. Awake, alert and in no acute distress. He is maintaining O2 saturation in the 90s on 3 L/m per nasal cannula. Lactated Ringer's at 75 ML's per hour. He's been afebrile. Hemodynamically stable. Chest x-ray reveals evidence of congestive heart failure and underlying COPD. Chronic pleural reaction. Blood cultures reveal no growth. White count 12.4. Hemoccult was 7.7. Platelets 113. Sodium 141. Potassium 4.0. Creatinine 2.09. ProBNP 36,700. He remains on Decadron, Lovenox, vitamin supplements. Antibiotics in the form of Unasyn. The patient is seen today 12/20/2020 in follow-up on the selective care unit. He is currently resting comfortably in bed. Awake and alert in no acute distress. Rectal maintaining O2 saturations in the 90s on 3 L/m per nasal cannula. She's been afebrile. Hemodynamically stable. Blood cultures reveal no growth. No new labs today. He remains on Decadron, Lovenox, vitamin supplements. Antibiotics in the form of Unasyn. Lactated Ringer's at 75 ML's per hour. The patient is seen today 12/21/2020 in follow-up on the selective care unit. He has currently resting comfortably in bed. Awake and alert in no acute distress. He is on 2 L/m per nasal cannula. O2 saturation 98%. White count 17.0. Hemoglobin 8.9. Sodium 140. Potassium 3.7. Creatinine 1.92. He is continued on Unasyn. Remains on Decadron, Lovenox, vitamin supplements. E chocardiogram reveals moderate impaired left ventricular systolic function with ejection fraction 40-45%. Severe pulmonary hypertension. The patient is seen today 12/22/2020 in follow-up on the selective care unit. He is currently resting comfortably in bed. Maintaining O2 saturations in the 90s on 2 L/m per nasal cannula. Chest x-ray shows cardiomegaly with chronic parenchymal changes with right greater than left bilateral multifocal opacities and tiny bilateral pleural effusions. No change compared to previous. 0.9 normal saline @ 20 ML's per hour. He is continued on Decadron, Lovenox, vitamin supplements. Antibiotics in the form of Unasyn. Blood cultures reveal no growth. White count 18.5. Hemoglobin 8.8. Lymphocytes 0.4. Sodium 141. Potassium 3.9. Creatinine 1.82. The patient is seen today 12/23/2020 in follow-up on the selective care unit. He is awake and alert in no acute distress. Resting quite comfortably in bed. Maintaining O2 saturations in the 90s on 4 L/m per nasal cannula. No IV fluids. Pro-calcitonin down to 3.6. He remains on Unasyn. He remains on dexamethasone, Lovenox, vitamin supplements. Transitioned to oral diuretics. 12/24 2020, the patient is being seen for a follow-up. The patient remains on 4 L of [id number] cannula to maintain a saturation above 90%. Is a case of COVID-19 related pneumonia with secondary story failure. His superinfection is also suspected knowing that the patient's pro-calcitonin level was elevated significantly. The most recent chest x-ray showing diffuse but the pulmonary infiltrates right more than left. The pro-calcitonin level is down to 3.6 from 12/22/2020. The white cell count of 18.5 with a hemoglobin of 8.9. Platelet count is stable at 178. The patient continues to have some lymphopenia. C reatinine is down to 1.8 with the rest of the electrodes being within normal limits. She remains on empiric antibiotic coverage with IV Unasyn initially and later on Augmentin. He is on Decadron 4 mg by mouth daily. He is on Lasix 20 mg by mouth daily and he is also on Lovenox 30 mg subcu for DVT prophylaxis. 12/25/2020, the patient is being seen for a follow-up. He is a case of COVID-19 infection/pneumonia with superinfection, possibly a pneumonia based on elevated calcitonin level. The chest x-ray was showing patchy bilateral infiltrates and cardiomegaly. This was the x-ray from yesterday. Based on this, the patient was kept on a combination of Decadron currently on 2 mg and the patient is also on a course of Augmentin 875 mg twice a day after being treated with IV Unasyn. This morning, the patient is on oxygen on 4 L with a pulse ox of 94%. Remains on Lovenox 30 mg subcu for DVT prophylaxis. With that was of 14.7. Hemoglobin dropped down to 6.8 with a platelet count of 172. Coagulation profile has been adequate from prior evaluations. His creatinine is up to 2.27 with a BUN of 62 and the patient had a follow-up pro-calcitonin level of 3.6. Stool for occult blood was also negative. Units of packed RBC has already been ordered for this patient. 12/26/2020, the patient essentially looks the same as yesterday and he remains on 5 L of oxygen by nasal cannula. His swallow mechanism has been suspected to be 4 and was suspected felt aspiration and for that reason we sent him for a swallow evaluation and the patient is having a modified barium swallow done today. He is a case of COVID-19 related pneumonia. His pro calcitonin level was elevated and is improving and is down to 1.53 also and we suspected superinfection and for that reason the patient was given antibiotics initially Zosyn and later on Augmentin. His chest x-ray from today is showing inters titial infiltrates bilaterally more so on the right where the right lung is essentially infiltrated in the left upper lobe was also infiltrated in the left lower lobe essentially spared. He is receiving Decadron at a dose of 2 mg by mouth daily. He is also on Lovenox and we had to stop it because of a drop in hemoglobin down to 6.8 and this can be essentially resumed as the patient has no evidence of bleeding. He received a unit of packed RBC and hemoglobin responded nicely and felt to 9.2. His creatinine is stable at 2.1 which is improved compared to yesterday. 12/27/2020 the patient remains on oxygen at 5 L which is essentially the same as yesterday. With suspected aspiration. With a bedside swallow evaluation following that the patient was given a modified barium swallow and the patient was found to have some oral and pharyngeal phases that were appropriate and there was appropriate for propagation up with material. There was normal mastication. No evidence of any aspiration. As such, the patient was cleared. At this point in time, the patient is still being treated for a combination of COVID-19 related pneumonia with a suspected superinfection. The patient remains on Augmentin leg grams twice a day. Sputum sample was sent and the patient sputum sample came back positive for gram-negative bacillus including sedation marcescens and this microorganism was resistant to Augmentin. The patient is also on Decadron 2 mg by mouth daily and the patient is also taking Lovenox 30 mg subcu on a daily basis. Chest x-ray findings and essentially unchanged the patient has diffuse interstitial infiltrates bilaterally more so on the right compared to the left. His d-dimer is at 4.22. Creatinine is stable at 2.1 . He continues to have some congested cough. His pro calcitonin level has dropped down to 1.53. As stated, chest x-ray findings are essentially unchanged and stable. He remains quite debilitated at this point in time. He passed a swallow evaluation. 12/28/2020, the patient is being seen for a follow-up. He remains on 5 L of oxygen by nasal cannula. His chest x-ray was showing diffuse pulmonary infiltrates most on the right compared to the left. Noted is a case of COVID-19 related pneumonia in his sputum also showed Serratia and subsequent culture showed Pseudomonas. Both of them are sensitive to Levaquin. Nevertheless, due to presence of pseudomonas, would like to cover this patient with a broader spectrum antibiotics with IV cefepime. Otherwise, the patient is essentially the same as yesterday. White cell count is elevated with a white cell count of 16. Hemoglobin stable at 8.7 and the patient has not had any further episodes o f GI bleeds. His creatinine is also stable at 2.04 with a BUN of 58 and the patient's serum bicarb is 22. Electrodes are normal. His d-dimer is at 5.88. LDH level is at 1259 which is slightly improved compared to earlier studies. He is weak. His debilitated. Oral intake is quite diminished. He has a congested cough. Heart is using his incentive spirometer. He did pass a swallow evaluation. He remains on Decadron. He remains on Lovenox 30 mg subcutaneous for DVT prophylaxis. This was restarted yesterday. 12/29/2020 the patient is on 8 L of oxygen by nasal cannula. Dobbhoff insertion catheter was unsuccessful. I switched him to a NG tube catheter which she was keeping it on till evening and later on he pulled it out because of discomfort. As such, enteral feeding was also discontinued. He is going back to his regular oral habits which is essentially poor at this point in time. There is also a concern of aspiration. He did pass a swallow evaluation nevertheless, he is eating habits has been poor and his caloric intake has been also poor. Aspiration is to be given for PEG tube insertion. GI is on the case. He is known to have also pseudomonas in his sputum in addition to Serratia. I put him on IV cefepime yesterday. He does have pneumonia which is probably a combination of gram-negative and COVID-19 related pneumonia. On his blood work, the patient has a white cell count 14.8. His hemoglobin is at 8.5. He has a creatinine of 2.0 which is stable compared to yesterday and the sodium level is at 144. Has implemented markings from few days back showed an LDH level of 1259. His long-term prognosis poor. He is quite debilitated. He is 89 years of age. He has multiple medical problems and comorbidities and he has been significantly weak and debilitated especially with this ongoing COVID-19 pneumonia with superinfection with gram-negative bacteria. 12/30/2020 the patient is on oxygen at 10 L. As mentioned earlier, attempt to keep the patient has failed and the patient pulled out his NG tube and currently he is taken oral intake and modest amounts. Meanwhile, the patient is currently on 10 L of oxygen by nasal cannula. Repeat chest x-ray from today is showing bilateral pulmonary infiltrates right more than left and there is obvious inter vance worsening in the pulmonary infiltration on the right and there is obvious interval worsening of airspace disease bilaterally and this is most likely consistent with COVID-19 related pneumonia. His white cell count is at 14.8 with a hemoglobin of 8.5. His creatinine is still stable at 2.1. Inflammatory markers are still pending from today. LDH from few days back was at 1259. He remains on IV cefepime. He remains on Decadron and the dose will be adjusted up to 6 mg IV every 12 hours specially with his interval progression of the bilateral pulmonary infiltrates. His hemoglobin is at 8.5. He is quite lethargic and debilitated. He sleeps most of the time. His breathing seems to be more labored compared to yesterday and he seems to be in mild degree of respiratory distress at this point in time. CODE STATUS is full and obviouslyto be addressed pressure with his interval progression and worsening of the pneumonia. On today's evaluation 2020, the patient is still doing poorly on a 10 L per minute nasal cannula. Afebrile. Hemodynamically stable. Breathing is nonlabored. Oral intake is almost minimal. He is laying comfortably in bed. Hemodynamically stable. His renal function is showing a creatinine of 2.2 with a mean of 61. Serum bicarbonate 21. The LDH level is 1137 with a CRP level of 5.8. Chest x-ray from yesterday was showing interval worsening of the right lung consolidation. Patient is afebrile. Very much weak and debilitated. Pulse ox is order of 88-90% on high flow oxygen at 10 L per minute nasal cannula. On 01/01/2021 patient seen in follow-up on selective care unit, he appears to be more short of breath, his requiring 15 L high flow nasal cannula and his pulse ox is 90-93%, he is tachypneic, he appears very weak, debilitated, he is curled up in bed, in that he is unable to sit up unassisted. He is afebrile, his been for the most part bedbound, his last chest x-ray was done yesterday showing bilateral airspace disease, no pneumothorax or pleural effusion. Current therapies include Decadron 2 mg daily, he is on oral Lasix 20 mg daily, and he remains on antibiotics in the form of cefepime for aspiration pneumonia, his sputum culture showed Serratia marcescens and the pseudomonas aeruginosa both sensitive to cefepime, blood cultures were negative. The rest of the patient's blood work has been reviewed showing relatively stable white count of 12.7, hemoglobin is 8.5, sodium is 142, potassium is 4.1, chloride is 113, CO2 is 20, BUN of 60 creatinine is 2.21. His pro calcitonin is improving and was down to 1.38 on 12/31/2020. Overall clinically patient appears to be generally declining. He is very weak, he has oral food intake has been extremely diminished, he had a NG tube in place which he pulled out, and apparently he is refusing placement of another NG tube or another gastric tube including a PEG tube. Were told that she is still a full code, however at this point we're not sure if the patient understands what that entails in his condition, and status needs to be clarified with his next of kin as his prognosis is poor On 01/03/2021 patient seen in follow-up on selective care unit, is much more awake on today's exam, and appears to be a bit stronger, appears to be in no acute distress, denies worsening dyspnea, currently down to 6 L of oxygen, this has been weaned down from 11 L that the patient was on yesterday, his pulse ox on 6 L is 93%. he is afebrile, hemodynamically his blood pressure has been stable. His last chest x-ray yesterday showed stable diffuse infiltrates and multifocal infiltrates right greater than left. Clinically patient seems to be improving, he remains on Decadron 6 mg twice daily, remains on Lovenox 80 mg daily, maintenance IV fluids at 75 ML per hour, and cefepime for Serratia and pseudomonal pneumonia Objective - Vital Signs Vital signs: Vital Signs Temp 97.9 F 01/03/21 08:58 Pulse 107 H 01/03/21 11:20 Resp 22 06/03/21 11:20 BP 129/81 01/03/21 11:20 Pulse Ox 91 L 01/03/21 11:20 Intake & Output 01/02/21 01/03/21 01/03/21 18:59 06:59 18:59 Intake Total 840 480 Output Total 100 280 Balance 740 -280 480 Weight 76 kg 51.8 kg Intake: Oral 840 480 Output: Urine 100 280 Other: Voiding Method Urinal Urinal Urinal Diaper Diaper - Exam GENERAL EXAM: Lethargic, 89-year-old frail looking a bit better on today's exam, but stronger and more awake 89-year-old -[place] male, currently on 6 L of oxygen, mildly short of breath, he is on 14 2015 L per high flow nasal cannula with a pulse ox of 90%, moderately tachypneic, and short of breath with any conversation or any exertion comfortable in no apparent distress. HEAD: Normocephalic/atraumatic. EYES: Normal reaction of pupils, equal size. Conjunctiva pink, sclera white. NOSE: Clear with pink turbinates. THROAT: No erythema or exudates. NECK: No masses, no JVD, no thyroid enlargement, no adenopathy. CHEST: No chest wall deformity. Symmetrical expansion. LUNGS: Equal air entry with diminished breath sounds at the bases, with bibasilar crackles CVS: Regular rate and rhythm, normal S1 and S2, no gallops, no murmurs, no rubs ABDOMEN: Soft, nontender. No hepatosplenomegaly, normal bowel sounds, no guarding or rigidity. EXTREMITIES: No clubbing, no edema, no cyanosis, 2+ pulses and upper and lower extremities. MUSCULOSKELETAL: Muscle strength and tone normal. SPINE: No scoliosis or deformity SKIN: No rashes CENTRAL NERVOUS SYSTEM: Alert and oriented -3. No focal deficits, tone is normal in all 4 extremities. PSYCHIATRIC: Alert and oriented -3. Appropriate affect. Intact judgment and insight. - Labs CBC & Chem 7: 01/02/21 11:22 01/02/21 11:22 Assessment and Plan Plan: Assessment: #1. Acute hypoxemic respiratory failure secondary to acute COVID-19 pneumonia, . The patient has also grown Serratia and Pseudomonas and the patient and his sputum. His antibiotics have been modified into IV cefepime. Showing interval worsening of the consolidation and airspace disease involving the right lung and the patient is currently up to 10 L of Oxymizer nasal cannula. In my opinion, this is progression of COVID-19. Patient is covered with IV cefepime regarding gram-negative pneumonia 2. We'll repeat chest x-ray in the morning. We'll repeat a metabolic markers. We'll obtain LDH, CRP and will also obtain a pro-calcitonin level. Aspiration precautions. He is requiring assistance for activities such as feeding. Since yesterday, the patient's condition has been improving, currently down to 6 L of oxygen. Inflammatory markers including LDH has been elevated. Repeat chest x-ray showing stable bilateral airspace disease consistent with obesity-related pneumonia. #2. Leukocytosis, pro-calcitonin greater than 100 secondary to above, currently down to 1.83 #3. Acute exacerbation of systolic congestive heart failure #4. Acute renal failure with a history of chronic renal failure secondary to nephrosclerosis, creatinine stable #5. Atrial fibrillation with a rapid ventricular response, currently atrial tachycardia, on beta blockers #6. Recent CVA #7. Troponin leak #8. Coronary artery disease with previous history of coronary artery bypass grafting #9. Chronic obstructive pulmonary disease #10. Remote history of lung cancer, details of which are unclear #11. Former smoker #12. chronic anemia, multifactorial. No signs of any acute GI bleed. Hemoglobin is stable for now. Plan: Continue current dose Decadron for the next 24 hours Continue cefepime Lasix is currently on hold FiO2 is currently down to 6 L, and can be further weaned GI and DVT prophylaxis Patient's oral intake has improved, and he has declined insertion of a PEG tube Patient and his family are insisting on patient returning home after discharge From pulmonary perspective if patient remains stable in continues to improve and remains on oxygen at 5 L or less he may be considered for discharge home tomorrow I performed a history & physical examination of the patient and discussed their management with my nurse practitioner, Sharee Palencia. I reviewed the nurse practitioner's note and agree with the documented findings and plan of care. Lung sounds are positive for diminished breath sounds The findings and the imp ression was discussed with the patient. I attest to the documentation by the nurse practitioner. Time with Patient: Less than 30
[2021-01-03] MEDS: ONDANSETRON 4 MG/2 ML VIAL IVP PRN (14:12)
--- NOTE | 2021-01-03 15:22 | PN ---
PROGRESS NOTE Patient is seen for followup for chronic kidney disease and acute kidney injury. His acute kidney injury has resolved and renal function has been fairly stable. The patient is being treated for COVID pneumonia. His serum creatinine staying around 2 mg/dL. He remains with high oxygen requirement, although it is down to about 6 L now. EXAMINATION: Today patient is comfortable. He is arousable, not in any acute distress. Blood pressure 129/81, heart rate 107 per minute, he is afebrile. Examination of the lower extremities shows no significant edema. Abdomen is soft, nontender. LAB: Show from 01/02/2021, sodium 143, potassium 4.1, BUN 60, serum creatinine 2.16, hemoglobin 8.6 g/dL. ASSESSMENT: 1. Acute kidney injury, acute tubular necrosis, currently resolved. 2. Chronic kidney disease, stage 4. Baseline creatinine appears to be around 2 mg/dL. Etiology nephrosclerosis. UA is completely negative. 3. COVID pneumonia requiring high-flow oxygen, currently improved with oxygen requirement down to about 6 L. 4. Anemia, multifactorial plan. 5. Chronic diastolic congestive heart failure with moderate mitral regurgitation, maintained on low-dose loop diuretics, tolerating well. PLAN: Continue current dose of Lasix. Check labs in a.m. MMODL / IJN: [id number] /
--- NOTE | 2021-01-03 19:14 | P.PN ---
Subjective Progress Note Date: 01/03/21 Fitz Blue, is an 89 year old male who presented to [facility] emergency room with a chief complaint of worsening shortness of breath, patient stated that he started having shortness of breath on the day of presentation that progressed to significant breathing difficulty EMS were sushma smith, they found patient to be in significant respiratory distress he was started on nonrebreather mask and was treated with IV Solu-Medrol and DuoNeb updrafts and was brought in to [facility] emergency room. In the emergency room patient was evaluated, his vital examination on presentation revealed a temperature of 98.6 pulse 142 respiration 18 blood pressure 99/78 pulse ox 94% on room air, laboratory data on presentation revealed a white blood count of 13.5 hemoglobin 10.5 platelet count 134 d-dimer 3.88, sodium 140 potassium 5.3 chloride 106 CO2 16 BUN 19 9 creatinine 5.09 glucose level was 136 plasma lactic acid was 3.5 troponin level was elevated at 0.105 C-reactive p rotein 58.6 Procalcitonin more than 100 and coronavirus PCR was positive. Chest x-ray was done in the emergency room and revealed bilateral interstitial pneumonia, cardiomegaly, small right pleural effusion and pleural reaction , EKG was done in the emergency room and revealed atrial fibrillation with rapid ventricular response and nonspecific ST abnormality . Patient was admitted to telemetry floor for further evaluation and treatment. Patient was admitted to [facility] in August 2020 after having a stroke, he was discharged to [facility] on the [facility] for rehabilit ation and was discharged home about 6 weeks ago. His past medical history is also significant for hypertension, hyperlipidemia, coronary artery disease with history of coronary artery bypass graft surgery, history of COPD, history of pulmonary hypertension, history of multiple lumbar compression vertebral fractures, history of anemia, history of carotid stenosis, history of osteoarthritis, and history of protein calorie malnutrition. On 12/17/2020 patient was seen and examined on the medical floor he is alert and oriented 3 in no apparent distress he is complaining of nausea otherwise he de nies any complaints there is no fever or chills no headache or dizziness no chest pain no shortness of breath no cough no vomiting no abdominal pain no diarrhea no blood in the stools no burning with urination no frequency or urgency and no hematuria. Kidney function has improved significantly since yesterday, otherwise no change in condition. On 12/18/2020 patient was seen and examined on the medical floor he is alert and oriented 3 in no apparent distress he is complaining of nausea otherwise he denies any complaints there is no fever or chills no headache or dizziness no chest pain , he has some shortness of breath no cough no vomiting no abdominal pain no diarrhea no blood in the stools no burning with urination no frequency or urgency and no hematuria. Kidney function has improved significantly since yesterday, otherwise no change in condition. On 12/19/2020 patient was seen and examined on the medical floor he is alert and oriented 3 in no apparent distress he is complaining of nausea otherwise he denies any complaints there is no fever or chills no headache or dizziness no chest pain , he has some shortness of breath no cough no vomiting no abdominal pain no diarrhea no blood in the stools no burning with urination no frequency or urgency and no hematuria. Kidney function has improved significantly since yesterday, otherwise no change in condition. BNP is significantly elevated, patient still having shortness of breath, will check Echocardiogram and consult cardiology. On 12/20/2020 patient was seen and examined on the medical floor he is alert and oriented 3 in no apparent distress he is complaining of nausea otherwise he denies any complaints there is no fever or chills no headache or dizziness no chest pain , he has some shortness of breath no cough no vomiting no abdominal pain no diarrhea no blood in the stools no burning with urination no frequency or urgency and no hematuria. Kidney function has improved significantly since yesterday, otherwise no change in condition. BNP is significantly elevated, patient still having shortness of breath, will check Echocardiogram and consult cardiology. patient was started on IV lasix, awaiting Echo. On 12/21/2020 patient was seen and examined on the medical floor he is alert and oriented 3 in no apparent distress he is complaining of nausea otherwise he denies any complaints there is no fever or chills no headache or dizziness no chest pain , he has some shortness of breath no cough no vomiting no abdominal pain no diarrhea no blood in the stools no burning with urination no frequency or urgency and no hematuria. Kidney function has improved significantly since yesterday, otherwise no change in condition. BNP is significantly elevated, patient still having shortness of breath, will check Echocardiogram and consult cardiology. patient was started on IV lasix, repeat CXR ordered for tomorrow. On 12/22/2020 patient was seen and examined on the medical floor he is alert and oriented 3 in no apparent distress he is complaining of nausea otherwise he denies any complaints there is no fever or chills no headache or dizziness no chest pain , he has some shortness of breath no cough no vomiting no abdominal pain no diarrhea no blood in the stools no burning with urination no frequency or urgency and no hematuria. Kidney function has improved significantly since yesterday, otherwise no change in condition. BNP is significantly elevated, patient still having shortness of breath, will check Echocardiogram and consult cardiology. patient was started on IV lasix, repeat CXR ordered for tomorrow. at this time will switch to oral lasix and oral Decadron continue to monitor, possi ble discharge in the next 1-2 days. On 12/23/2020 Patient was seen and examined on the medical floor, he is alert and oriented x 3 in no distress, he denies any complaints there is no fever or chills no headache or dizziness no chest pain no shortness of breath no palpitation no cough no nausea or vomiting no abdominal pain no diarrhea no blood in the stools no burning with urination no frequency or urgency and no hematuria, there is no weakness or numbness in any of the extremities no change in vision speech or gait. White blood count is still significantly elevated pro calcitonin is elevated chest x-rays revealing some worsening infectious disease following awaiting further recommendation will continue to monitor On 12/24/2020 Patient was seen and examined on the medical floor, he is alert and oriented x 3 in no distress, he denies any complaints there is no fever or chills no headache or dizziness no chest pain no shortness of breath no palpitation no cough no nausea or vomiting no abdominal pain no diarrhea no blood in the stools no burning with urination no frequency or urgency and no hematuria, there is no weakness or numbness in any of the extremities no change in vision speech or gait. White blood count is still significantly elevated pro calcitonin is elevated chest x-rays revealing some worsening opacities, infectious disease following awaiting further recommendation will continue to monitor, today Will decrease dose of Decadron and continue to monitor On 12/25/2020 Patient was seen and examined on the medical floor, he is alert and oriented x 3 in no distress, he denies any complaints there is no fever or chills no headache or dizziness no chest pain no shortness of breath no palpitation no cough no nausea or vomiting no abdominal pain no diarrhea no blood in the stools no burning with urination no frequency or urgency and no hematuria, there is no weakness or numbness in any of the extremities no change in vision speech or gait. Hemoglobin is down to 6.8 today 1 unit of red blood cell transfusion was ordered will follow closely On 12/27/2020 Patient was seen and examined on the medical floor, he is alert and oriented x 3 in no distress, he has very poor oral intake he denies any complaints there is no fever or chills no headache or dizziness no chest pain no shortness of breath no palpitation no cough no nausea or vomiting no abdominal pain no diarrhea no blood in the stools no burning with urination no frequency or urgency and no hematuria, there is no weakness or numbness in any of the extremities no change in vision speech or gait. Nutrition are recommending appetite stimulant patient will be started on Megace. On 12/28/2020 Patient was seen and examined on the medical floor, he is alert and oriented x 3 in no distress, he denies any complaints there is no fever or chills no headache or dizziness no chest pain no shortness of breath no palpitation no cough no nausea or vomiting no abdominal pain no diarrhea no blood in the stools no burning with urination no frequency or urgency and no hematuria, patient has very poor oral intake, recommendation by nutrition is to start a Dobbhoff tube with enteral feeding will proceed as above. On 12/29/2020 Patient was seen and examined on the medical floor, he is alert and oriented x 3 in no distress, he denies any complaints there is no fever or chills no headache or dizziness no chest pain no shortness of breath no palpitation no cough no nausea or vomiting no abdominal pain no diarrhea no blood in the stools no burning with urination no frequency or urgency and no he maturia, patient was unable to tolerate Dobbhoff tube he pulled it out last night, gastroenterology are following, will monitor patient oral intake and decide whether there is an indication for a PEG tube if patient agrees for that. On 12/30/2020 Patient was seen and examined on the medical floor, he is alert and oriented x 3 in no distress, he denies any complaints there is no fever or chills no headache or dizziness no chest pain no shortness of breath no palpitation no cough no nausea or vomiting no abdominal pain no diarrhea no blood in the stools no burning with urination no frequency or urgency and no hematuria, dietitian is stating that patient is still having very low oral intake. I have discussed possibility of PEG tube with patient, at this time he is stating that he does not want a PEG tube and he is going to try to eat more, will continue to monitor closely. On 12/31/2020 Patient was seen and examined on the medical floor, he is alert and oriented x 3 in no distress, he denies any complaints there is no fever or chills no headache or dizziness no chest pain no shortness of breath no palpitation no cough no nausea or vomiting no abdominal pain no diarrhea no blood in the stools no burning with urination no frequency or urgency and no hematuria, patient was encouraged again to increase his oral intake. On 01/01/2021 Patient was seen and examined on the medical floor, he is alert and oriented x 3 in no distress, he denies any complaints there is no fever or chills no headache or dizziness no chest pain no shortness of breath no palpitation no cough no nausea or vomiting no abdominal pain no diarrhea no blood in the stools no burning with urination no frequency or urgency and no hematuria, there is no weakness or numbness in any of the extremities no change in vision speech or gait., Patient still has very low oral intake, at this time after prolonged discussion with patient and with his nephew Kane Reveles, patient is now agreeable to proceeding with PEG tube for feeding. On 01/02/2021 Patient was seen and examined on the medical floor, he is alert and oriented x 3 in no distress, he denies any complaints there is no fever or chills no headache or dizziness no chest pain no shortness of breath no palpitation no cough no nausea or vomiting no abdominal pain no diarrhea no blood in the stools no burning with urination no frequency or urgency and no hematuria, per nursing staff patient is having a little bit more oral intake today otherwise no change in condition. On 01/03/2021 patient was seen and examined on the medical floor, he is alert and oriented 3 in no distress, today he ate 75% of his meals and seems to be more alert, he is maintained on oxygen at 6 L nasal cannula and oxygen saturation is 92%, he is denying any complaints at this time, patient can possibly be discharged tomorrow he was encouraged to continue to increase his oral intake, will continue with Megace for appetite stimulant will follow in a.m. Objective - Vital Signs Vital signs: Vital Signs Temp 97.5 F L 01/02/21 23:20 Pulse 100 01/03/21 03:50 Resp 23 01/03/21 03:50 BP 118/70 01/03/21 03:50 Pulse Ox 93 L 01/03/21 03:50 Intake & Output 01/02/21 01/02/21 01/03/21 06:59 18:59 06:59 Intake Total 840 Output Total 380 100 80 Balance -380 740 -80 Weight 76 kg Intake: Oral 840 Output: Urine 380 100 80 Other: Voiding Method Urinal Urinal Urinal Diaper # Voids 2 # Bowel Movements 2 - Exam In general patient is alert and oriented x3 in no distress HEENT head normocephalic and atraumatic Neck is supple no JVD no goiter no lymphadenopathy no carotid bruit Chest examination is clear to auscultation no crackles no wheezing Cardiac exam reveals regular heart sounds S1 and S2 no gallops no murmurs Abdomen is soft nontender no organomegaly with normal bowel sounds Extremity exam reveals no edema no cyanosis or clubbing Neurological examination reveals no gross focal deficits - Labs CBC & Chem 7: 01/02/21 11:22 01/02/21 11:22 Labs: Abnormal Lab Results - Last 24 Hours (Table) 01/02/21 01/02/21 Range/Units 11:22 11:22 RBC 2.89 L (4.30-5.90) m/uL Hgb 8.6 L (13.0-17.5) gm/dL Hct 28.7 L (39.0-53.0) % MCHC 30.0 L (31.0-37.0) g/dL RDW 21.5 H (11.5-15.5) % Plt Count 105 L (150-450) k/uL Neutrophils # 8.8 H (1.3-7.7) k/uL Lymphocytes # 0.4 L (1.0-4.8) k/uL Chloride 116 H (98-107) mmol/L Carbon Dioxide 18 L (22-30) mmol/L BUN 60 H (9-20) mg/dL Creatinine 2.16 H (0.66-1.25) mg/dL Glucose 162 H (74-99) mg/dL Total Protein 5.9 L (6.3-8.2) g/dL Albumin 2.7 L (3.5-5.0) g/dL Assessment and Plan Plan: 1. COVID-19 infection 2. Bilateral interstitial pneumonia, possibly related to COVID-19, however bacterial superimposed infection cannot be ruled out 3. Evidence of sepsis, with leukocytosis, hypotension, and elevated lactic acid 4. Acute on chronic renal failure, creatinine on admission in August was 1.5 nephrology consultation requested 5. Severe hyperkalemia 6. Underlying history of COPD 7. Recent history of stroke in August 2020 8. Underlying history of hypertension 9. Underlying history of hyperlipidemia 10. Underlying history of coronary artery disease with previous history of coronary artery bypass graft surgery 11. Underlying history of multiple lumbar compression vertebral fractures. 12. Previous history of anemia and history of GI bleed, Hgb down to 7.7 will consult GI At this time patient is admitted to telemetry floor He received IV fluid boluses He was started on IV heparin and IV Cardizem drip He was started on IV antibiotic Rocephin and Zithromax He was started on steroids prednisone 40 mg daily Pulmonary, nephrology, infectious disease and cardiology consultation requested. Prognosis is poor due to advanced age, severity of illness, and multiple underlying medical conditions Today I spoke was patient nephew for a prolonged phone call. Issues regarding nutrition were discussed in details, poor oral intake on the part of the patient was discussed despite appetite stimulant. Insertion of nasogastric tube for feeding several days ago and the fact that patient has pulled it out and is refusing to have it put back in again was discussed, also possibility of a PEG tube for feeding was discussed, the nephew Kane Reveles will discuss this issues with his family and with patient and will get back with me this afternoon. Also, issues regarding CODE STATUS were discussed in details, I strongly urged his nephew to change his CODE STATUS to no code as he would most likely not survive having a cold and being on a ventilator. The nephew also will discuss all these issues with his other family members and with patient and we will get back with me this afternoon
[2021-01-03] MEDS ORDERED: SODIUM FERRIC GLUCONAT-SUCROSE 125 MG in SODIUM CHLORIDE 0.9% 100 ML IVPB ONE (19:30)
[2021-01-03] MEDS: SODIUM CHLORIDE 0.9% 1,000 ML IV SCH (19:53)
[2021-01-04] MEDS: SODIUM CHLORIDE 0.9% 1,000 ML IV SCH ×2 (05:42→15:58)
[2021-01-04] MEDS: CEFEPIME 1 GM in SODIUM CHLORIDE 0.9% 50 ML IVPB SCH (08:42)
[2021-01-04] MEDS: ASPIRIN 81 MG PO SCH (08:43)
[2021-01-04] MEDS: ZINC SULFATE 220 MG CAP PO SCH (08:43)
[2021-01-04] MEDS: CHOLECALCIFEROL 25 MCG (1000 IU) TABLET PO SCH (08:44)
[2021-01-04] MEDS: DEXAMETHASONE SOD PHOSPHATE 10 MG/ML 1 ML VIAL IV SCH ×2 (08:44→21:23)
[2021-01-04] MEDS: ASCORBIC ACID 500 MG TAB PO SCH (08:44)
[2021-01-04] MEDS: METOPROLOL TARTRATE 50 MG TAB PO SCH ×2 (08:44→21:22)
[2021-01-04] MEDS: MEGESTROL 400 MG/10 ML CUP PO SCH ×2 (08:47→21:23)
[2021-01-04] MEDS: ENOXAPARIN 30 MG/0.3 ML SYRINGE SQ SCH (08:47)
[2021-01-04] MEDS: ONDANSETRON 4 MG/2 ML VIAL IVP PRN (09:00)
[2021-01-04 09:32] LABS: Albumin 2.9 g/dL (3.5-5.0); Calcium 8.2 mg/dL (8.4-10.2); Potassium 4.4 mmol/L (3.5-5.1); Total Bilirubin 0.4 mg/dL (0.2-1.3); Total Protein 6.1 g/dL (6.3-8.2)
[2021-01-04 09:39] LABS: Anisocytosis Moderate; HCT 26.4 % (39.0-53.0); Hypochromasia Marked; MCH 29.4 pg (25.0-35.0); MCHC 30.1 g/dL (31.0-37.0); MCV 97.7 fL (80.0-100.0); Macrocytosis Moderate; Mean Platelet Volume 8.7; Poikilocytosis Slight; RBC 2.71 m/uL (4.30-5.90); RDW 22.3 % (11.5-15.5)
[2021-01-04 09:41] LABS: Platelet Count 173 k/uL (150-450)
[2021-01-04] MEDS ORDERED: SODIUM FERRIC GLUCONAT-SUCROSE 125 MG in SODIUM CHLORIDE 0.9% 100 ML IVPB ONE (10:30)
[2021-01-04 11:50] LABS: Lymphocytes # (M) 0.24 k/uL (1.0-4.8); Monocytes # (M) 0.85 k/uL (0-1.0); Myelocytes # (M) 0.12 k/uL (0); Myelocytes % 1 %; Neutrophils # (M) 11.01 k/uL (1.3-7.7); Neutrophils % (M) 91 %; Nucleated Red Blood Cells 10 /100 WBC (0-0); Total Cells Counted 200; WBC 12.1 k/uL (3.8-10.6)
[2021-01-04 11:51] LABS: Polychromasia Present
--- NOTE | 2021-01-04 12:29 | P.PN ---
Subjective Progress Note Date: 01/04/21 Fitz Blue, is an 89 year old male who presented to [facility] emergency room with a chief complaint of worsening shortness of breath, patient stated that he started having shortness of breath on the day of presentation that progressed to significant breathing difficulty EMS were sushma smith, they found patient to be in significant respiratory distress he was started on nonrebreather mask and was treated with IV Solu-Medrol and DuoNeb updrafts and was brought in to [facility] emergency room. In the emergency room patient was evaluated, his vital examination on presentation revealed a temperature of 98.6 pulse 142 respiration 18 blood pressure 99/78 pulse ox 94% on room air, laboratory data on presentation revealed a white blood count of 13.5 hemoglobin 10.5 platelet count 134 d-dimer 3.88, sodium 140 potassium 5.3 chloride 106 CO2 16 BUN 19 9 creatinine 5.09 glucose level was 136 plasma lactic acid was 3.5 troponin level was elevated at 0.105 C-reactive p rotein 58.6 Procalcitonin more than 100 and coronavirus PCR was positive. Chest x-ray was done in the emergency room and revealed bilateral interstitial pneumonia, cardiomegaly, small right pleural effusion and pleural reaction , EKG was done in the emergency room and revealed atrial fibrillation with rapid ventricular response and nonspecific ST abnormality . Patient was admitted to telemetry floor for further evaluation and treatment. Patient was admitted to [facility] in August 2020 after having a stroke, he was discharged to [facility] the [facility] for rehabilit ation and was discharged home about 6 weeks ago. His past medical history is also significant for hypertension, hyperlipidemia, coronary artery disease with history of coronary artery bypass graft surgery, history of COPD, history of pulmonary hypertension, history of multiple lumbar compression vertebral fractures, history of anemia, history of carotid stenosis, history of osteoarthritis, and history of protein calorie malnutrition. On 12/17/2020 patient was seen and examined on the medical floor he is alert and oriented 3 in no apparent distress he is complaining of nausea otherwise he de nies any complaints there is no fever or chills no headache or dizziness no chest pain no shortness of breath no cough no vomiting no abdominal pain no diarrhea no blood in the stools no burning with urination no frequency or urgency and no hematuria. Kidney function has improved significantly since yesterday, otherwise no change in condition. On 12/18/2020 patient was seen and examined on the medical floor he is alert and oriented 3 in no apparent distress he is complaining of nausea otherwise he denies any complaints there is no fever or chills no headache or dizziness no chest pain , he has some shortness of breath no cough no vomiting no abdominal pain no diarrhea no blood in the stools no burning with urination no frequency or urgency and no hematuria. Kidney function has improved significantly since yesterday, otherwise no change in condition. On 12/19/2020 patient was seen and examined on the medical floor he is alert and oriented 3 in no apparent distress he is complaining of nausea otherwise he denies any complaints there is no fever or chills no headache or dizziness no chest pain , he has some shortness of breath no cough no vomiting no abdominal pain no diarrhea no blood in the stools no burning with urination no frequency or urgency and no hematuria. Kidney function has improved significantly since yesterday, otherwise no change in condition. BNP is significantly elevated, patient still having shortness of breath, will check Echocardiogram and consult cardiology. On 12/20/2020 patient was seen and examined on the medical floor he is alert and oriented 3 in no apparent distress he is complaining of nausea otherwise he denies any complaints there is no fever or chills no headache or dizziness no chest pain , he has some shortness of breath no cough no vomiting no abdominal pain no diarrhea no blood in the stools no burning with urination no frequency or urgency and no hematuria. Kidney function has improved significantly since yesterday, otherwise no change in condition. BNP is significantly elevated, patient still having shortness of breath, will check Echocardiogram and consult cardiology. patient was started on IV lasix, awaiting Echo. On 12/21/2020 patient was seen and examined on the medical floor he is alert and oriented 3 in no apparent distress he is complaining of nausea otherwise he denies any complaints there is no fever or chills no headache or dizziness no chest pain , he has some shortness of breath no cough no vomiting no abdominal pain no diarrhea no blood in the stools no burning with urination no frequency or urgency and no hematuria. Kidney function has improved significantly since yesterday, otherwise no change in condition. BNP is significantly elevated, patient still having shortness of breath, will check Echocardiogram and consult cardiology. patient was started on IV lasix, repeat CXR ordered for tomorrow. On 12/22/2020 patient was seen and examined on the medical floor he is alert and oriented 3 in no apparent distress he is complaining of nausea otherwise he denies any complaints there is no fever or chills no headache or dizziness no chest pain , he has some shortness of breath no cough no vomiting no abdominal pain no diarrhea no blood in the stools no burning with urination no frequency or urgency and no hematuria. Kidney function has improved significantly since yesterday, otherwise no change in condition. BNP is significantly elevated, patient still having shortness of breath, will check Echocardiogram and consult cardiology. patient was started on IV lasix, repeat CXR ordered for tomorrow. at this time will switch to oral lasix and oral Decadron continue to monitor, possi ble discharge in the next 1-2 days. On 12/23/2020 Patient was seen and examined on the medical floor, he is alert and oriented x 3 in no distress, he denies any complaints there is no fever or chills no headache or dizziness no chest pain no shortness of breath no palpitation no cough no nausea or vomiting no abdominal pain no diarrhea no blood in the stools no burning with urination no frequency or urgency and no hematuria, there is no weakness or numbness in any of the extremities no change in vision speech or gait. White blood count is still significantly elevated pro calcitonin is elevated chest x-rays revealing some worsening infectious disease following awaiting further recommendation will continue to monitor On 12/24/2020 Patient was seen and examined on the medical floor, he is alert and oriented x 3 in no distress, he denies any complaints there is no fever or chills no headache or dizziness no chest pain no shortness of breath no palpitation no cough no nausea or vomiting no abdominal pain no diarrhea no blood in the stools no burning with urination no frequency or urgency and no hematuria, there is no weakness or numbness in any of the extremities no change in vision speech or gait. White blood count is still significantly elevated pro calcitonin is elevated chest x-rays revealing some worsening opacities, infectious disease following awaiting further recommendation will continue to monitor, today Will decrease dose of Decadron and continue to monitor On 12/25/2020 Patient was seen and examined on the medical floor, he is alert and oriented x 3 in no distress, he denies any complaints there is no fever or chills no headache or dizziness no chest pain no shortness of breath no palpitation no cough no nausea or vomiting no abdominal pain no diarrhea no blood in the stools no burning with urination no frequency or urgency and no hematuria, there is no weakness or numbness in any of the extremities no change in vision speech or gait. Hemoglobin is down to 6.8 today 1 unit of red blood cell transfusion was ordered will follow closely On 12/27/2020 Patient was seen and examined on the medical floor, he is alert and oriented x 3 in no distress, he has very poor oral intake he denies any complaints there is no fever or chills no headache or dizziness no chest pain no shortness of breath no palpitation no cough no nausea or vomiting no abdominal pain no diarrhea no blood in the stools no burning with urination no frequency or urgency and no hematuria, there is no weakness or numbness in any of the extremities no change in vision speech or gait. Nutrition are recommending appetite stimulant patient will be started on Megace. On 12/28/2020 Patient was seen and examined on the medical floor, he is alert and oriented x 3 in no distress, he denies any complaints there is no fever or chills no headache or dizziness no chest pain no shortness of breath no palpitation no cough no nausea or vomiting no abdominal pain no diarrhea no blood in the stools no burning with urination no frequency or urgency and no hematuria, patient has very poor oral intake, recommendation by nutrition is to start a Dobbhoff tube with enteral feeding will proceed as above. On 12/29/2020 Patient was seen and examined on the medical floor, he is alert and oriented x 3 in no distress, he denies any complaints there is no fever or chills no headache or dizziness no chest pain no shortness of breath no palpitation no cough no nausea or vomiting no abdominal pain no diarrhea no blood in the stools no burning with urination no frequency or urgency and no he maturia, patient was unable to tolerate Dobbhoff tube he pulled it out last night, gastroenterology are following, will monitor patient oral intake and decide whether there is an indication for a PEG tube if patient agrees for that. On 12/30/2020 Patient was seen and examined on the medical floor, he is alert and oriented x 3 in no distress, he denies any complaints there is no fever or chills no headache or dizziness no chest pain no shortness of breath no palpitation no cough no nausea or vomiting no abdominal pain no diarrhea no blood in the stools no burning with urination no frequency or urgency and no hematuria, dietitian is stating that patient is still having very low oral intake. I have discussed possibility of PEG tube with patient, at this time he is stating that he does not want a PEG tube and he is going to try to eat more, will continue to monitor closely. On 12/31/2020 Patient was seen and examined on the medical floor, he is alert and oriented x 3 in no distress, he denies any complaints there is no fever or chills no headache or dizziness no chest pain no shortness of breath no palpitation no cough no nausea or vomiting no abdominal pain no diarrhea no blood in the stools no burning with urination no frequency or urgency and no hematuria, patient was encouraged again to increase his oral intake. On 01/01/2021 Patient was seen and examined on the medical floor, he is alert and oriented x 3 in no distress, he denies any complaints there is no fever or chills no headache or dizziness no chest pain no shortness of breath no palpitation no cough no nausea or vomiting no abdominal pain no diarrhea no blood in the stools no burning with urination no frequency or urgency and no hematuria, there is no weakness or numbness in any of the extremities no change in vision speech or gait., Patient still has very low oral intake, at this time after prolonged discussion with patient and with his nephew Kane Reveles, patient is now agreeable to proceeding with PEG tube for feeding. On 01/02/2021 Patient was seen and examined on the medical floor, he is alert and oriented x 3 in no distress, he denies any complaints there is no fever or chills no headache or dizziness no chest pain no shortness of breath no palpitation no cough no nausea or vomiting no abdominal pain no diarrhea no blood in the stools no burning with urination no frequency or urgency and no hematuria, per nursing staff patient is having a little bit more oral intake today otherwise no change in condition. On 01/03/2021 patient was seen and examined on the medical floor, he is alert and oriented 3 in no distress, today he ate 75% of his meals and seems to be more alert, he is maintained on oxygen at 6 L nasal cannula and oxygen saturation is 92%, he is denying any complaints at this time, patient can possibly be discharged tomorrow he was encouraged to continue to increase his oral intake, will continue with Megace for appetite stimulant will follow in a.m. On 01/04/2021 Patient was seen and examined on the medical floor, he is alert and oriented x 3 in no distress, he is complaining of feeling tired and having generalized weakness otherwise he denies any complaints there is no fever or chills no headache or dizziness no chest pain no shortness of breath no palpitation no cough no nausea or vomiting no abdominal pain no diarrhea no blood in the stools no burning with urination no frequency or urgency and no hematuria. At this time patient is not ready yet for discharge, will continue with current management, will recheck in a.m., patient encouraged again in re alvaro to increasing oral intake, he has anemia with a hemoglobin of 8.0 will give 1 more dose of IV iron today Objective - Vital Signs Vital signs: Vital Signs Temp 97.6 F 01/04/21 08:00 Pulse 93 01/04/21 08:00 Resp 16 01/04/21 08:00 BP 124/76 01/04/21 08:00 Pulse Ox 93 L 01/04/21 08:00 Intake & Output 01/03/21 01/04/21 01/04/21 18:59 06:59 18:59 Intake Total 720 120 318 Output Total 201 1 50 Balance 519 119 268 Weight 51.8 kg 17 kg Intake: Oral 720 120 318 Output: Urine 200 50 Stool 1 1 Other: Voiding Method Urinal Urinal Diaper Diaper # Voids 1 # Bowel Movements 1 1 - Exam In general patient is alert and oriented x3 in no distress HEENT head normocephalic and atraumatic Neck is supple no JVD no goiter no lymphadenopathy no carotid bruit Chest examination is clear to auscultation no crackles no wheezing Cardiac exam reveals regular heart sounds S1 and S2 no gallops no murmurs Abdomen is soft nontender no organomegaly with normal bowel sounds Extremity exam reveals no edema no cyanosis or clubbing Neurological examination reveals no gross focal deficits - Labs CBC & Chem 7: 01/04/21 08:25 01/04/21 08:25 Labs: Abnormal Lab Results - Last 24 Hours (Table) 01/04/21 01/04/21 Range/Units 08:25 08:25 WBC 12.1 H (3.8-10.6) k/uL RBC 2.71 L (4.30-5.90) m/uL Hgb 8.0 L (13.0-17.5) gm/dL Hct 26.4 L (39.0-53.0) % MCHC 30.1 L (31.0-37.0) g/dL RDW 22.3 H (11.5-15.5) % Neutrophils # (Manual) 11.01 H (1.3-7.7) k/uL Lymphocytes # (Manual) 0.24 L (1.0-4.8) k/uL Myelocytes # (Manual) 0.12 H (0) k/uL Nucleated RBCs 10 H (0-0) /100 WBC Chloride 118 H (98-107) mmol/L Carbon Dioxide 17 L (22-30) mmol/L BUN 74 H (9-20) mg/dL Creatinine 2.72 H (0.66-1.25) mg/dL Glucose 126 H (74-99) mg/dL Calcium 8.2 L (8.4-10.2) mg/dL Total Protein 6.1 L (6.3-8.2) g/dL Albumin 2.9 L (3.5-5.0) g/dL Assessment and Plan Plan: 1. COVID-19 infection 2. Bilateral interstitial pneumonia, possibly related to COVID-19, however bacterial superimposed infection cannot be ruled out 3. Evidence of sepsis, with leukocytosis, hypotension, and elevated lactic acid 4. Acute on chronic renal failure, creatinine on admission in August was 1.5 nephrology consultation requested 5. Severe hyperkalemia 6. Underlying history of COPD 7. Recent history of stroke in August 2020 8. Underlying history of hypertension 9. Underlying history of hyperlipidemia 10. Underlying history of coronary artery disease with previous history of coronary artery bypass graft surgery 11. Underlying history of multiple lumbar compression vertebral fractures. 12. Previous history of anemia and history of GI bleed, Hgb down to 7.7 will consult GI At this time patient is admitted to telemetry floor He received IV fluid boluses He was started on IV heparin and IV Cardizem drip He was started on IV antibiotic Rocephin and Zithromax He was started on steroids prednisone 40 mg daily Pulmonary, nephrology, infectious disease and cardiology consultation requested. Prognosis is poor due to advanced age, severity of illness, and multiple underlying medical conditions Today I spoke was patient nephew for a prolonged phone call. Issues regarding nutrition were discussed in details, poor oral intake on the part of the patient was discussed despite appetite stimulant. Insertion of nasogastric tube for feeding several days ago and the fact that patient has pulled it out and is refusing to have it put back in again was discussed, also possibility of a PEG tube for feeding was discussed, the nephew Kane Reveles will discuss this issues with his family and with patient and will get back with me this afternoon. Also, issues regarding CODE STATUS were discussed in details, I strongly urged his nephew to change his CODE STATUS to no code as he would most likely not survive having a cold and being on a ventilator. The nephew also will discuss all these issues with his other family members and with patient and we will get back with me this afternoon
--- NOTE | 2021-01-04 12:32 | P.PN ---
Subjective Progress Note Date: 01/04/21 Principal diagnosis: COVID-19 pneumonia, aspiration pneumonia This is a pleasant 89-year-old gentleman who follows with Dr. Boss as his primary care provider. He has history of hypertension, CVA, coronary artery disease with previous coronary artery bypass grafting, COPD, seizure disorder, previous smoker, lung cancer. He presented to the emergency room yesterday with complaints of increasing shortness of breath, chest tightness and wheezing. He was found to be in atrial fibrillation with a rapid ventricular response. Chest x-ray revealed bilateral interstitial pneumonia. Cardiomegaly. Small right pleural effusion and pleural reaction at the right lung base. White count 17.4. Hemoglobin 9.1. Sodium 139. Potassium 5.4. Creatinine 3.75. Presenting creatinine was 5.09. Pro-calcitonin greater than 100. Troponin 0.105. C- reactive protein 58.6. Andres virus positive. He is seen today in consultation on the selective care unit. The patient is a poor historian. Unable to determine when his symptoms started. He is currently resting fairly comfortably in bed. Awake and alert in no acute distress. Maintaining O2 saturations in the high 90s on 3 L/m per nasal cannula. Afebrile. Slightly tachycardic. Ultrasound of the kidneys revealed no hydronephrosis or nephrolithiasis bilaterally. His initiated on a Cardizem drip at 10 mg per hour, heparin drip and antibiotics in the form of ceftriaxone and azithromycin. His initiated on Decadron 10 mg IV daily. Progress note dated 12/17/2020. 89-year-old black male, seen by our nurse practitioner yesterday in consultation. The patient has a history of hypertension, CVA, coronary disease, previous bypass grafting, COPD, seizure disorder, and lung cancer. The patient apparently presented to the emergency department with complaints of increasing shortness of breath, chest tightness, and wheezing. He was found to have atrial fibrillation with RVR, and also was positive for coronavirus infection. The patient seems be recently comfortable this time. He is on 3 L. Saturations are 97%. Heart rate 86. Respiratory rate 18. No audible wheezing, use of accessory muscles, or conversational dyspnea. The patient is not a particularly good historian. White count 15.8, hemoglobin 7.9, hematocrit 24.8, and platelet count 120,000. PTT is 37.8. Sodium 141, potassium 3.4, chlorides 104, CO2 25, anion gap 12, BUN 97, and creatinine 2.67. Initial lactic acid 2.2. Repeat lactic acid 1.1. Chest x-ray shows bilateral interstitial pneumonia with cardiomegaly. There is a small right-sided pleural effusion. Progress note dated 12/18/2020. 89-year-old black male, seen in consultation 2 days ago. I saw the patient yesterday in follow-up. The patient has a history of essential hypertension, CVA, coronary artery disease, previous bypass grafting, COPD, seizure disorder, and lung cancer. The patient presented to the emergency department with complaints of increasing shortness of breath, chest tightness and wheezing, and was found to have atrial fibrillation with RVR, and also tested positive for coronavirus infection. Currently, the patient appears to be relatively comfortable. He is on 3 L nasal cannula, and his saturations are 100%. Blood pressure 112/72, heart rate 89, respiratory rate 18, and his temperature is 97.8. Labs show a white count of 14.6, hemoglobin 7.8, hematocrit 25.6, and platelet count 121,000. D-dimer is 2.0. Sodium 141, potassium 3.8, chlorides 108, CO2 26, anion gap 7, BUN 76, creatinine 2.19. No recent chest x-ray to review. The patient is seen today 12/19/2020 in follow-up on the cardiac floor. He is currently resting comfortably in bed. Awake, alert and in no acute distress. He is maintaining O2 saturation in the 90s on 3 L/m per nasal cannula. Lactated Ringer's at 75 ML's per hour. He's been afebrile. Hemodynamically stable. Chest x-ray reveals evidence of congestive heart failure and underlying COPD. Chronic pleural reaction. Blood cultures reveal no growth. White count 12.4. Hemoccult was 7.7. Platelets 113. Sodium 141. Potassium 4.0. Creatinine 2.09. ProBNP 36,700. He remains on Decadron, Lovenox, vitamin supplements. Antibiotics in the form of Unasyn. The patient is seen today 12/20/2020 in follow-up on the selective care unit. He is currently resting comfortably in bed. Awake and alert in no acute distress. Rectal maintaining O2 saturations in the 90s on 3 L/m per nasal cannula. She's been afebrile. Hemodynamically stable. Blood cultures reveal no growth. No new labs today. He remains on Decadron, Lovenox, vitamin supplements. Antibiotics in the form of Unasyn. Lactated Ringer's at 75 ML's per hour. The patient is seen today 12/21/2020 in follow-up on the selective care unit. He has currently resting comfortably in bed. Awake and alert in no acute distress. He is on 2 L/m per nasal cannula. O2 saturation 98%. White count 17.0. Hemoglobin 8.9. Sodium 140. Potassium 3.7. Creatinine 1.92. He is continued on Unasyn. Remains on Decadron, Lovenox, vitamin supplements. E chocardiogram reveals moderate impaired left ventricular systolic function with ejection fraction 40-45%. Severe pulmonary hypertension. The patient is seen today 12/22/2020 in follow-up on the selective care unit. He is currently resting comfortably in bed. Maintaining O2 saturations in the 90s on 2 L/m per nasal cannula. Chest x-ray shows cardiomegaly with chronic parenchymal changes with right greater than left bilateral multifocal opacities and tiny bilateral pleural effusions. No change compared to previous. 0.9 normal saline @ 20 ML's per hour. He is continued on Decadron, Lovenox, vitamin supplements. Antibiotics in the form of Unasyn. Blood cultures reveal no growth. White count 18.5. Hemoglobin 8.8. Lymphocytes 0.4. Sodium 141. Potassium 3.9. Creatinine 1.82. The patient is seen today 12/23/2020 in follow-up on the selective care unit. He is awake and alert in no acute distress. Resting quite comfortably in bed. Maintaining O2 saturations in the 90s on 4 L/m per nasal cannula. No IV fluids. Pro-calcitonin down to 3.6. He remains on Unasyn. He remains on dexamethasone, Lovenox, vitamin supplements. Transitioned to oral diuretics. 12/24 2020, the patient is being seen for a follow-up. The patient remains on 4 L of [id number] cannula to maintain a saturation above 90%. Is a case of COVID-19 related pneumonia with secondary story failure. His superinfection is also suspected knowing that the patient's pro-calcitonin level was elevated significantly. The most recent chest x-ray showing diffuse but the pulmonary infiltrates right more than left. The pro-calcitonin level is down to 3.6 from 12/22/2020. The white cell count of 18.5 with a hemoglobin of 8.9. Platelet count is stable at 178. The patient continues to have some lymphopenia. C reatinine is down to 1.8 with the rest of the electrodes being within normal limits. She remains on empiric antibiotic coverage with IV Unasyn initially and later on Augmentin. He is on Decadron 4 mg by mouth daily. He is on Lasix 20 mg by mouth daily and he is also on Lovenox 30 mg subcu for DVT prophylaxis. 12/25/2020, the patient is being seen for a follow-up. He is a case of COVID-19 infection/pneumonia with superinfection, possibly a pneumonia based on elevated calcitonin level. The chest x-ray was showing patchy bilateral infiltrates and cardiomegaly. This was the x-ray from yesterday. Based on this, the patient was kept on a combination of Decadron currently on 2 mg and the patient is also on a course of Augmentin 875 mg twice a day after being treated with IV Unasyn. This morning, the patient is on oxygen on 4 L with a pulse ox of 94%. Remains on Lovenox 30 mg subcu for DVT prophylaxis. With that was of 14.7. Hemoglobin dropped down to 6.8 with a platelet count of 172. Coagulation profile has been adequate from prior evaluations. His creatinine is up to 2.27 with a BUN of 62 and the patient had a follow-up pro-calcitonin level of 3.6. Stool for occult blood was also negative. Units of packed RBC has already been ordered for this patient. 12/26/2020, the patient essentially looks the same as yesterday and he remains on 5 L of oxygen by nasal cannula. His swallow mechanism has been suspected to be 4 and was suspected felt aspiration and for that reason we sent him for a swallow evaluation and the patient is having a modified barium swallow done today. He is a case of COVID-19 related pneumonia. His pro calcitonin level was elevated and is improving and is down to 1.53 also and we suspected superinfection and for that reason the patient was given antibiotics initially Zosyn and later on Augmentin. His chest x-ray from today is showing inters titial infiltrates bilaterally more so on the right where the right lung is essentially infiltrated in the left upper lobe was also infiltrated in the left lower lobe essentially spared. He is receiving Decadron at a dose of 2 mg by mouth daily. He is also on Lovenox and we had to stop it because of a drop in hemoglobin down to 6.8 and this can be essentially resumed as the patient has no evidence of bleeding. He received a unit of packed RBC and hemoglobin responded nicely and felt to 9.2. His creatinine is stable at 2.1 which is improved compared to yesterday. 12/27/2020 the patient remains on oxygen at 5 L which is essentially the same as yesterday. With suspected aspiration. With a bedside swallow evaluation following that the patient was given a modified barium swallow and the patient was found to have some oral and pharyngeal phases that were appropriate and there was appropriate for propagation up with material. There was normal mastication. No evidence of any aspiration. As such, the patient was cleared. At this point in time, the patient is still being treated for a combination of COVID-19 related pneumonia with a suspected superinfection. The patient remains on Augmentin leg grams twice a day. Sputum sample was sent and the patient sputum sample came back positive for gram-negative bacillus including sedation marcescens and this microorganism was resistant to Augmentin. The patient is also on Decadron 2 mg by mouth daily and the patient is also taking Lovenox 30 mg subcu on a daily basis. Chest x-ray findings and essentially unchanged the patient has diffuse interstitial infiltrates bilaterally more so on the right compared to the left. His d-dimer is at 4.22. Creatinine is stable at 2.1 . He continues to have some congested cough. His pro calcitonin level has dropped down to 1.53. As stated, chest x-ray findings are essentially unchanged and stable. He remains quite debilitated at this point in time. He passed a swallow evaluation. 12/28/2020, the patient is being seen for a follow-up. He remains on 5 L of oxygen by nasal cannula. His chest x-ray was showing diffuse pulmonary infiltrates most on the right compared to the left. Noted is a case of COVID-19 related pneumonia in his sputum also showed Serratia and subsequent culture showed Pseudomonas. Both of them are sensitive to Levaquin. Nevertheless, due to presence of pseudomonas, would like to cover this patient with a broader spectrum antibiotics with IV cefepime. Otherwise, the patient is essentially the same as yesterday. White cell count is elevated with a white cell count of 16. Hemoglobin stable at 8.7 and the patient has not had any further episodes o f GI bleeds. His creatinine is also stable at 2.04 with a BUN of 58 and the patient's serum bicarb is 22. Electrodes are normal. His d-dimer is at 5.88. LDH level is at 1259 which is slightly improved compared to earlier studies. He is weak. His debilitated. Oral intake is quite diminished. He has a congested cough. Heart is using his incentive spirometer. He did pass a swallow evaluation. He remains on Decadron. He remains on Lovenox 30 mg subcutaneous for DVT prophylaxis. This was restarted yesterday. 12/29/2020 the patient is on 8 L of oxygen by nasal cannula. Dobbhoff insertion catheter was unsuccessful. I switched him to a NG tube catheter which she was keeping it on till evening and later on he pulled it out because of discomfort. As such, enteral feeding was also discontinued. He is going back to his regular oral habits which is essentially poor at this point in time. There is also a concern of aspiration. He did pass a swallow evaluation nevertheless, he is eating habits has been poor and his caloric intake has been also poor. Aspiration is to be given for PEG tube insertion. GI is on the case. He is known to have also pseudomonas in his sputum in addition to Serratia. I put him on IV cefepime yesterday. He does have pneumonia which is probably a combination of gram-negative and COVID-19 related pneumonia. On his blood work, the patient has a white cell count 14.8. His hemoglobin is at 8.5. He has a creatinine of 2.0 which is stable compared to yesterday and the sodium level is at 144. Has implemented markings from few days back showed an LDH level of 1259. His long-term prognosis poor. He is quite debilitated. He is 89 years of age. He has multiple medical problems and comorbidities and he has been significantly weak and debilitated especially with this ongoing COVID-19 pneumonia with superinfection with gram-negative bacteria. 12/30/2020 the patient is on oxygen at 10 L. As mentioned earlier, attempt to keep the patient has failed and the patient pulled out his NG tube and currently he is taken oral intake and modest amounts. Meanwhile, the patient is currently on 10 L of oxygen by nasal cannula. Repeat chest x-ray from today is showing bilateral pulmonary infiltrates right more than left and there is obvious inter vance worsening in the pulmonary infiltration on the right and there is obvious interval worsening of airspace disease bilaterally and this is most likely consistent with COVID-19 related pneumonia. His white cell count is at 14.8 with a hemoglobin of 8.5. His creatinine is still stable at 2.1. Inflammatory markers are still pending from today. LDH from few days back was at 1259. He remains on IV cefepime. He remains on Decadron and the dose will be adjusted up to 6 mg IV every 12 hours specially with his interval progression of the bilateral pulmonary infiltrates. His hemoglobin is at 8.5. He is quite lethargic and debilitated. He sleeps most of the time. His breathing seems to be more labored compared to yesterday and he seems to be in mild degree of respiratory distress at this point in time. CODE STATUS is full and obviouslyto be addressed pressure with his interval progression and worsening of the pneumonia. On today's evaluation 2020, the patient is still doing poorly on a 10 L per minute nasal cannula. Afebrile. Hemodynamically stable. Breathing is nonlabored. Oral intake is almost minimal. He is laying comfortably in bed. Hemodynamically stable. His renal function is showing a creatinine of 2.2 with a mean of 61. Serum bicarbonate 21. The LDH level is 1137 with a CRP level of 5.8. Chest x-ray from yesterday was showing interval worsening of the right lung consolidation. Patient is afebrile. Very much weak and debilitated. Pulse ox is order of 88-90% on high flow oxygen at 10 L per minute nasal cannula. On 01/01/2021 patient seen in follow-up on selective care unit, he appears to be more short of breath, his requiring 15 L high flow nasal cannula and his pulse ox is 90-93%, he is tachypneic, he appears very weak, debilitated, he is curled up in bed, in that he is unable to sit up unassisted. He is afebrile, his been for the most part bedbound, his last chest x-ray was done yesterday showing bilateral airspace disease, no pneumothorax or pleural effusion. Current therapies include Decadron 2 mg daily, he is on oral Lasix 20 mg daily, and he remains on antibiotics in the form of cefepime for aspiration pneumonia, his sputum culture showed Serratia marcescens and the pseudomonas aeruginosa both sensitive to cefepime, blood cultures were negative. The rest of the patient's blood work has been reviewed showing relatively stable white count of 12.7, hemoglobin is 8.5, sodium is 142, potassium is 4.1, chloride is 113, CO2 is 20, BUN of 60 creatinine is 2.21. His pro calcitonin is improving and was down to 1.38 on 12/31/2020. Overall clinically patient appears to be generally declining. He is very weak, he has oral food intake has been extremely diminished, he had a NG tube in place which he pulled out, and apparently he is refusing placement of another NG tube or another gastric tube including a PEG tube. Were told that she is still a full code, however at this point we're not sure if the patient understands what that entails in his condition, and status needs to be clarified with his next of kin as his prognosis is poor On 01/03/2021 patient seen in follow-up on selective care unit, is much more awake on today's exam, and appears to be a bit stronger, appears to be in no acute distress, denies worsening dyspnea, currently down to 6 L of oxygen, this has been weaned down from 11 L that the patient was on yesterday, his pulse ox on 6 L is 93%. he is afebrile, hemodynamically his blood pressure has been stable. His last chest x-ray yesterday showed stable diffuse infiltrates and multifocal infiltrates right greater than left. Clinically patient seems to be improving, he remains on Decadron 6 mg twice daily, remains on Lovenox 80 mg daily, maintenance IV fluids at 75 ML per hour, and cefepime for Serratia and pseudomonal pneumonia On 01/04/2021 patient seen in follow-up on selective care unit, he is currently on 5 L of oxygen, pulse ox is 96%, this can probably be further wean down, he is afebrile, hemodynamically stable, he is resting quietly in bed, in no acute distress, no fever or chills, no convincing chest discomfort, his most recent chest x-ray showed relatively stable diffuse infiltrates with a combination of pulmonary fibrosis and superimposed interstitial pneumonitis and multifocal on the chest. The patient has been improving, he remains on IV Decadron 6 mg twice daily, he remains on cefepime. He was evaluated by physical therapy and placement of ECF was recommended upon discharge Objective - Vital Signs Vital signs: Vital Signs Temp 97.6 F 01/04/21 08:00 Pulse 93 01/04/21 08:00 Resp 16 01/04/21 08:00 BP 124/76 01/04/21 08:00 Pulse Ox 93 L 01/04/21 08:00 Intake & Output 01/03/21 01/04/21 01/04/21 18:59 06:59 18:59 Intake Total 720 120 318 Output Total 201 1 50 Balance 519 119 268 Weight 51.8 kg 17 kg Intake: Oral 720 120 318 Output: Urine 200 50 Stool 1 1 Other: Voiding Method Urinal Urinal Diaper Diaper # Voids 1 # Bowel Movements 1 1 - Exam GENERAL EXAM: Lethargic, 89-year-old frail looking a bit better on today's exam, but stronger and more awake 89-year-old -Filipino male, currently on 3 L of oxygen, comfortable in no apparent distress. HEAD: Normocephalic/atraumatic. EYES: Normal reaction of pupils, equal size. Conjunctiva pink, sclera white. NOSE: Clear with pink turbinates. THROAT: No erythema or exudates. NECK: No masses, no JVD, no thyroid enlargement, no adenopathy. CHEST: No chest wall deformity. Symmetrical expansion. LUNGS: Equal air entry with diminished breath sounds at the bases, with bibasilar crackles CVS: Regular rate and rhythm, normal S1 and S2, no gallops, no murmurs, no rubs ABDOMEN: Soft, nontender. No hepatosplenomegaly, normal bowel sounds, no guarding or rigidity. EXTREMITIES: No clubbing, no edema, no cyanosis, 2+ pulses and upper and lower extremities. MUSCULOSKELETAL: Muscle strength and tone normal. SPINE: No scoliosis or deformity SKIN: No rashes CENTRAL NERVOUS SYSTEM: Alert and oriented -3. No focal deficits, tone is normal in all 4 extremities. PSYCHIATRIC: Alert and oriented -3. Appropriate affect. Intact judgment and insight. - Labs CBC & Chem 7: 01/04/21 08:25 01/04/21 08:25 Labs: Abnormal Lab Results - Last 24 Hours (Table) 01/04/21 01/04/21 Range/Units 08:25 08:25 WBC 12.1 H (3.8-10.6) k/uL RBC 2.71 L (4.30-5.90) m/uL Hgb 8.0 L (13.0-17.5) gm/dL Hct 26.4 L (39.0-53.0) % MCHC 30.1 L (31.0-37.0) g/dL RDW 22.3 H (11.5-15.5) % Neutrophils # (Manual) 11.01 H (1.3-7.7) k/uL Lymphocytes # (Manual) 0.24 L (1.0-4.8) k/uL Myelocytes # (Manual) 0.12 H (0) k/uL Nucleated RBCs 10 H (0-0) /100 WBC Chloride 118 H (98-107) mmol/L Carbon Dioxide 17 L (22-30) mmol/L BUN 74 H (9-20) mg/dL Creatinine 2.72 H (0.66-1.25) mg/dL Glucose 126 H (74-99) mg/dL Calcium 8.2 L (8.4-10.2) mg/dL Total Protein 6.1 L (6.3-8.2) g/dL Albumin 2.9 L (3.5-5.0) g/dL Assessment and Plan Plan: Assessment: #1. Acute hypoxemic respiratory failure secondary to acute COVID-19 pneumonia, . The patient has also grown Serratia and Pseudomonas and the patient and his sputum. His antibiotics have been modified into IV cefepime. Showing interval worsening of the consolidation and airspace disease involving the right lung and the patient is currently up to 10 L of Oxymizer nasal cannula. In my opinion, this is progression of COVID-19. Patient is covered with IV cefepime regarding gram-negative pneumonia 2. We'll repeat chest x-ray in the morning. We'll repeat a metabolic markers. We'll obtain LDH, CRP and will also obtain a pro- calcitonin level. Aspiration precautions. He is requiring assistance for activities such as feeding. Since yesterday, the patient's condition has been improving, currently down to 6 L of oxygen. Inflammatory markers including LDH has been elevated. Repeat chest x-ray showing stable bilateral airspace disease consistent with obesity-related pneumonia. #2. Leukocytosis, pro-calcitonin greater than 100 secondary to above, currently down to 1.83, improved. She remains on cefepime, pro-Level Has Improved #3. Acute exacerbation of systolic congestive heart failure #4. Acute renal failure with a history of chronic renal failure secondary to nephrosclerosis, creatinine stable #5. Atrial fibrillation with a rapid ventricular response, currently atrial tachycardia, on beta blockers #6. Recent CVA #7. Troponin leak #8. Coronary artery disease with previous history of coronary artery bypass grafting #9. Chronic obstructive pulmonary disease #10. Remote history of lung cancer, details of which are unclear #11. Former smoker #12. chronic anemia, multifactorial. No signs of any acute GI bleed. Hemoglobin is stable for now. Plan: FiO2 is down to 5 L, Breathing comfortably Generally debilitated He is being considered for discharge to ECF today He can complete 10 more days of oral Decadron 6 mg Antibiotics per ID service recommendations Overall prognosis is guarded Clear for discharge to ECF from pulmonary perspective I performed a history & physical examination of the patient and discussed their management with my nurse practitioner, Sharee Palencia. I reviewed the nurse practitioner's note and agree with the documented findings and plan of care. Lung sounds are positive for diminished breath sounds The findings and the impression was discussed with the patient. I attest to the documentation by the nurse practitioner. Time with Patient: Less than 30
[2021-01-04] MEDS: LACTATED RINGERS 1,000 ML IV SCH (13:03)
--- NOTE | 2021-01-04 13:37 | PN ---
PROGRESS NOTE Patient is seen for followup for acute kidney injury and chronic kidney disease. He is currently being treated for COVID pneumonia, which seems to have improved somewhat and oxygen requirements are down from about 15 L to 5 L now. The patient also had CHF and volume overload for which he is currently maintained on low-dose loop diuretics. He has not been eating much and there was concern for possible PEG tube placement. However, it appears that his intake has improved over the last couple of days. PHYSICAL EXAMINATION: Patient is comfortable. Blood pressure 124/76, heart rate 93 per minute, he is afebrile. O2 sats 93% on 3 L nasal cannula. Examination shows no evidence of edema to bilateral lower extremities. 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 Lungs and heart are not examined. LAB: Show sodium 144, potassium 4.4, CO2 17, BUN 74, serum creatinine 2.72. ASSESSMENT: 1. Acute kidney injury on initial admission, mostly acute tubular necrosis associated with underlying COVID infection. This had improved and patient was volume overloaded for which he was maintained on diuretics. Today his serum creatinine is slightly higher and since he had not been eating much, the Lasix is currently discontinued. The patient was started on IV fluids which I will hold off for now unless renal function is worse again tomorrow. 2. Chronic kidney disease. Baseline creatinine appears to be around 2 mg/dL. 3. Metabolic acidosis associated with renal failure. Add oral sodium bicarb. 4. Anemia of chronic disease. Maintained on Aranesp. 5. COVID pneumonia with acute hypoxic respiratory failure, maintained on Decadron. 6. Iron deficiency status post IV iron. PLAN: Add oral sodium bicarb. Change IV fluids to Ringer lactate given the acidosis and repeat labs in a.m. MMODL / IJN: [id number] /
--- NOTE | 2021-01-04 18:56 | PN ---
PROGRESS NOTE DATE OF SERVICE: 01/04/2021 REASON FOR FOLLOWUP: Gram-negative pneumonia. INTERVAL HISTORY: The patient is afebrile. The patient is breathing comfortably. Still requiring 5 L nasal cannula. The patient remains to be adequate historian. Oral intake remains to be poor. No vomiting or diarrhea has been reported by the nursing staff. PHYSICAL EXAMINATION: Blood pressure 107/72 with a pulse of 82, temperature is 97.7. He is 96% on 5 L nasal cannula. General description is an elderly male lying in bed in no distress. Respiratory system: Unlabored breathing, decreased breath sounds at the base, no wheeze. Heart S1, S2. Regular rate and rhythm. Abdomen soft, no tenderness. LABS: Hemoglobin 8 with white count 12.9, BUN of 74, creatinine is 2.72. DIAGNOSTIC IMPRESSION AND PLAN: Patient with Gram-negative pneumonia. Sputum has been Pseudomonas and Serratia. Patient is covered with cefepime. White count normalized, slightly up now, more likely steroid effect and will monitor closely. Continue supportive care. MMODL / IJN: [id number] /
[2021-01-04] MEDS: SODIUM BICARBONATE TAB 650 MG TAB PO SCH (21:23)
[2021-01-05] MEDS: ENOXAPARIN 30 MG/0.3 ML SYRINGE SQ SCH (08:15)
[2021-01-05] MEDS: ZINC SULFATE 220 MG CAP PO SCH (08:15)
[2021-01-05] MEDS: ASPIRIN 81 MG PO SCH (08:15)
[2021-01-05] MEDS: DEXAMETHASONE SOD PHOSPHATE 10 MG/ML 1 ML VIAL IV SCH ×2 (08:15→20:38)
[2021-01-05] MEDS: ASCORBIC ACID 500 MG TAB PO SCH (08:15)
[2021-01-05] MEDS: MEGESTROL 400 MG/10 ML CUP PO SCH ×2 (08:15→19:39)
[2021-01-05] MEDS: METOPROLOL TARTRATE 50 MG TAB PO SCH ×2 (08:15→19:39)
[2021-01-05] MEDS: SODIUM BICARBONATE TAB 650 MG TAB PO SCH ×2 (08:15→19:39)
[2021-01-05] MEDS: CEFEPIME 1 GM in SODIUM CHLORIDE 0.9% 50 ML IVPB SCH (08:16)
[2021-01-05] MEDS: CHOLECALCIFEROL 25 MCG (1000 IU) TABLET PO SCH (08:16)
--- NOTE | 2021-01-05 09:01 | P.PN ---
Subjective Progress Note Date: 01/05/21 Principal diagnosis: This is an 89-year-old male seen in consultation because of acute kidney injury, COVID pneumonia. His creatinine is Going up to 2.16 2.7 to. No history of nausea vomiting diarrhea appetite is poor. He is on lactated Ringer's at 50 an hour. He does not have Tabor catheter output is not accurately measured Known with coronary artery disease, history of CABG, COPD seizure disorder and a recent stroke in August 2020 Visit vital signs are stable blood pressure afebrile Objective - Vital Signs Vital signs: Vital Signs Temp 97.6 F 01/05/21 08:14 Pulse 90 01/05/21 08:14 Resp 21 01/05/21 08:14 BP 110/68 01/05/21 08:14 Pulse Ox 96 01/05/21 08:14 Intake & Output 01/04/21 01/05/21 01/05/21 18:59 06:59 18:59 Intake Total 686 Output Total 200 200 Balance 486 -200 Weight 33 kg Intake: Intake, IV Titration 250 Amount Cefepime 1 gm In Sodium 100 Chloride 0.9% 50 ml @ 12. 5 mls/hr IVPB DAILY [facility] Rx#:[id number] Lactated Ringers 1,000 ml 50 @ 50 mls/hr IV .Q20H [facility] Rx#:[id number] Sodium Ferric Gluconat- 100 Sucrose 125 mg In Sodium Chloride 0.9% 100 ml @ 100 mls/hr IVPB ONCE ONE Rx#:[id number] Oral 436 Output: Urine 200 200 Other: Voiding Method Urinal Diaper # Voids 1 1 # Bowel Movements 1 1 On exam he is emaciated generalized weakness and somewhat anxious HEENT exam no JVP neck is supple no facial asymmetry Lungs are clear to auscultation fair air entry bilaterally Heart sounds are unremarkable for any murmur rub gallop Abdomen soft nontender Extremity exam was no edema Neurologically awake alert oriented but generalized weakness - Labs CBC & Chem 7: 01/04/21 08:25 01/04/21 08:25 Labs: Abnormal Lab Results - Last 24 Hours (Table) 01/04/21 01/04/21 Range/Units 08:25 08:25 WBC 12.1 H (3.8-10.6) k/uL RBC 2.71 L (4.30-5.90) m/uL Hgb 8.0 L (13.0-17.5) gm/dL Hct 26.4 L (39.0-53.0) % MCHC 30.1 L (31.0-37.0) g/dL RDW 22.3 H (11.5-15.5) % Neutrophils # (Manual) 11.01 H (1.3-7.7) k/uL Lymphocytes # (Manual) 0.24 L (1.0-4.8) k/uL Myelocytes # (Manual) 0.12 H (0) k/uL Nucleated RBCs 10 H (0-0) /100 WBC Chloride 118 H (98-107) mmol/L Carbon Dioxide 17 L (22-30) mmol/L BUN 74 H (9-20) mg/dL Creatinine 2.72 H (0.66-1.25) mg/dL Glucose 126 H (74-99) mg/dL Calcium 8.2 L (8.4-10.2) mg/dL Total Protein 6.1 L (6.3-8.2) g/dL Albumin 2.9 L (3.5-5.0) g/dL Assessment and Plan Assessment: Impression 1. Acute kidney injury secondary: COVID 19 pneumonia improving, creatinine on admission was 5 improved but again is worsening from 2.16 yesterday and 2.7 to cause is not clear in be volume depletion from decreased intake although he is on lactated Ringer's at 50 an hour. Rule out outlet obstruction 2. Chronic kidney disease creatinine has been 1.7-2.1 earlier this year August and October 2020. Etiology is nephrosclerosis, urinalysis benign no proteinuria dated 12/21/2020 3. Anemia hemoglobin is 8.0 4. Mild degree of non-gap acidosis from acute kidney injury gap is 9 and bicarb 17 Recommendation 1. Increase IV fluids lactated Ringer's from 50-75 2. Check bladder scan for postvoid residual 3. Continue sodium bicarb
[2021-01-05 10:18] LABS: Anisocytosis Moderate; HCT 23.3 % (39.0-53.0); HGB 7.4 gm/dL (13.0-17.5); Hypochromasia Marked; MCH 30.8 pg (25.0-35.0); MCHC 31.9 g/dL (31.0-37.0); MCV 96.7 fL (80.0-100.0); Macrocytosis Moderate; Platelet Count 162 k/uL (150-450); Poikilocytosis Moderate; RBC 2.41 m/uL (4.30-5.90); RDW 22.8 % (11.5-15.5)
[2021-01-05 10:26] LABS: Albumin 2.7 g/dL (3.5-5.0); Calcium 8.1 mg/dL (8.4-10.2); Potassium 4.7 mmol/L (3.5-5.1); Total Bilirubin 0.5 mg/dL (0.2-1.3); Total Protein 5.6 g/dL (6.3-8.2)
[2021-01-05 13:08] LABS: Band Neutrophils % 1 %; Metamyelocytes % 1 %; Neutrophils % (M) 91 %; Nucleated Red Blood Cells 29 /100 WBC (0-0); Total Cells Counted 200
[2021-01-05 13:10] LABS: Basophils # (M) 0.16 k/uL (0-0.2); Lymphocytes # (M) 0.48 k/uL (1.0-4.8); Metamyelocytes # (M) 0.16 k/uL (0)
[2021-01-05 13:11] LABS: Polychromasia Present
[2021-01-05] MEDS: MORPHINE SULFATE 2 MG/ML SYRINGE IVP PRN (13:28)
--- NOTE | 2021-01-05 16:02 | P.PN ---
Subjective Progress Note Date: 01/05/21 Fitz Blue, is an 89 year old male who presented to [facility] emergency room with a chief complaint of worsening shortness of breath, patient stated that he started having shortness of breath on the day of presentation that progressed to significant breathing difficulty EMS were sushma smith, they found patient to be in significant respiratory distress he was started on nonrebreather mask and was treated with IV Solu-Medrol and DuoNeb updrafts and was brought in to [facility] emergency room. In the emergency room patient was evaluated, his vital examination on presentation revealed a temperature of 98.6 pulse 142 respiration 18 blood pressure 99/78 pulse ox 94% on room air, laboratory data on presentation revealed a white blood count of 13.5 hemoglobin 10.5 platelet count 134 d-dimer 3.88, sodium 140 potassium 5.3 chloride 106 CO2 16 BUN 19 9 creatinine 5.09 glucose level was 136 plasma lactic acid was 3.5 troponin level was elevated at 0.105 C-reactive p rotein 58.6 Procalcitonin more than 100 and coronavirus PCR was positive. Chest x-ray was done in the emergency room and revealed bilateral interstitial pneumonia, cardiomegaly, small right pleural effusion and pleural reaction , EKG was done in the emergency room and revealed atrial fibrillation with rapid ventricular response and nonspecific ST abnormality . Patient was admitted to telemetry floor for further evaluation and treatment. Patient was admitted to [facility] in August 2020 after having a stroke, he was discharged to [facility] on the [facility] for rehabilit ation and was discharged home about 6 weeks ago. His past medical history is also significant for hypertension, hyperlipidemia, coronary artery disease with history of coronary artery bypass graft surgery, history of COPD, history of pulmonary hypertension, history of multiple lumbar compression vertebral fractures, history of anemia, history of carotid stenosis, history of osteoarthritis, and history of protein calorie malnutrition. On 12/17/2020 patient was seen and examined on the medical floor he is alert and oriented 3 in no apparent distress he is complaining of nausea otherwise he de nies any complaints there is no fever or chills no headache or dizziness no chest pain no shortness of breath no cough no vomiting no abdominal pain no diarrhea no blood in the stools no burning with urination no frequency or urgency and no hematuria. Kidney function has improved significantly since yesterday, otherwise no change in condition. On 12/18/2020 patient was seen and examined on the medical floor he is alert and oriented 3 in no apparent distress he is complaining of nausea otherwise he denies any complaints there is no fever or chills no headache or dizziness no chest pain , he has some shortness of breath no cough no vomiting no abdominal pain no diarrhea no blood in the stools no burning with urination no frequency or urgency and no hematuria. Kidney function has improved significantly since yesterday, otherwise no change in condition. On 12/19/2020 patient was seen and examined on the medical floor he is alert and oriented 3 in no apparent distress he is complaining of nausea otherwise he denies any complaints there is no fever or chills no headache or dizziness no chest pain , he has some shortness of breath no cough no vomiting no abdominal pain no diarrhea no blood in the stools no burning with urination no frequency or urgency and no hematuria. Kidney function has improved significantly since yesterday, otherwise no change in condition. BNP is significantly elevated, patient still having shortness of breath, will check Echocardiogram and consult cardiology. On 12/20/2020 patient was seen and examined on the medical floor he is alert and oriented 3 in no apparent distress he is complaining of nausea otherwise he denies any complaints there is no fever or chills no headache or dizziness no chest pain , he has some shortness of breath no cough no vomiting no abdominal pain no diarrhea no blood in the stools no burning with urination no frequency or urgency and no hematuria. Kidney function has improved significantly since yesterday, otherwise no change in condition. BNP is significantly elevated, patient still having shortness of breath, will check Echocardiogram and consult cardiology. patient was started on IV lasix, awaiting Echo. On 12/21/2020 patient was seen and examined on the medical floor he is alert and oriented 3 in no apparent distress he is complaining of nausea otherwise he denies any complaints there is no fever or chills no headache or dizziness no chest pain , he has some shortness of breath no cough no vomiting no abdominal pain no diarrhea no blood in the stools no burning with urination no frequency or urgency and no hematuria. Kidney function has improved significantly since yesterday, otherwise no change in condition. BNP is significantly elevated, patient still having shortness of breath, will check Echocardiogram and consult cardiology. patient was started on IV lasix, repeat CXR ordered for tomorrow. On 12/22/2020 patient was seen and examined on the medical floor he is alert and oriented 3 in no apparent distress he is complaining of nausea otherwise he denies any complaints there is no fever or chills no headache or dizziness no chest pain , he has some shortness of breath no cough no vomiting no abdominal pain no diarrhea no blood in the stools no burning with urination no frequency or urgency and no hematuria. Kidney function has improved significantly since yesterday, otherwise no change in condition. BNP is significantly elevated, patient still having shortness of breath, will check Echocardiogram and consult cardiology. patient was started on IV lasix, repeat CXR ordered for tomorrow. at this time will switch to oral lasix and oral Decadron continue to monitor, possi ble discharge in the next 1-2 days. On 12/23/2020 Patient was seen and examined on the medical floor, he is alert and oriented x 3 in no distress, he denies any complaints there is no fever or chills no headache or dizziness no chest pain no shortness of breath no palpitation no cough no nausea or vomiting no abdominal pain no diarrhea no blood in the stools no burning with urination no frequency or urgency and no hematuria, there is no weakness or numbness in any of the extremities no change in vision speech or gait. White blood count is still significantly elevated pro calcitonin is elevated chest x-rays revealing some worsening infectious disease following awaiting further recommendation will continue to monitor On 12/24/2020 Patient was seen and examined on the medical floor, he is alert and oriented x 3 in no distress, he denies any complaints there is no fever or chills no headache or dizziness no chest pain no shortness of breath no palpitation no cough no nausea or vomiting no abdominal pain no diarrhea no blood in the stools no burning with urination no frequency or urgency and no hematuria, there is no weakness or numbness in any of the extremities no change in vision speech or gait. White blood count is still significantly elevated pro calcitonin is elevated chest x-rays revealing some worsening opacities, infectious disease following awaiting further recommendation will continue to monitor, today Will decrease dose of Decadron and continue to monitor On 12/25/2020 Patient was seen and examined on the medical floor, he is alert and oriented x 3 in no distress, he denies any complaints there is no fever or chills no headache or dizziness no chest pain no shortness of breath no palpitation no cough no nausea or vomiting no abdominal pain no diarrhea no blood in the stools no burning with urination no frequency or urgency and no hematuria, there is no weakness or numbness in any of the extremities no change in vision speech or gait. Hemoglobin is down to 6.8 today 1 unit of red blood cell transfusion was ordered will follow closely On 12/27/2020 Patient was seen and examined on the medical floor, he is alert and oriented x 3 in no distress, he has very poor oral intake he denies any complaints there is no fever or chills no headache or dizziness no chest pain no shortness of breath no palpitation no cough no nausea or vomiting no abdominal pain no diarrhea no blood in the stools no burning with urination no frequency or urgency and no hematuria, there is no weakness or numbness in any of the extremities no change in vision speech or gait. Nutrition are recommending appetite stimulant patient will be started on Megace. On 12/28/2020 Patient was seen and examined on the medical floor, he is alert and oriented x 3 in no distress, he denies any complaints there is no fever or chills no headache or dizziness no chest pain no shortness of breath no palpitation no cough no nausea or vomiting no abdominal pain no diarrhea no blood in the stools no burning with urination no frequency or urgency and no hematuria, patient has very poor oral intake, recommendation by nutrition is to start a Dobbhoff tube with enteral feeding will proceed as above. On 12/29/2020 Patient was seen and examined on the medical floor, he is alert and oriented x 3 in no distress, he denies any complaints there is no fever or chills no headache or dizziness no chest pain no shortness of breath no palpitation no cough no nausea or vomiting no abdominal pain no diarrhea no blood in the stools no burning with urination no frequency or urgency and no he maturia, patient was unable to tolerate Dobbhoff tube he pulled it out last night, gastroenterology are following, will monitor patient oral intake and decide whether there is an indication for a PEG tube if patient agrees for that. On 12/30/2020 Patient was seen and examined on the medical floor, he is alert and oriented x 3 in no distress, he denies any complaints there is no fever or chills no headache or dizziness no chest pain no shortness of breath no palpitation no cough no nausea or vomiting no abdominal pain no diarrhea no blood in the stools no burning with urination no frequency or urgency and no hematuria, dietitian is stating that patient is still having very low oral intake. I have discussed possibility of PEG tube with patient, at this time he is stating that he does not want a PEG tube and he is going to try to eat more, will continue to monitor closely. On 12/31/2020 Patient was seen and examined on the medical floor, he is alert and oriented x 3 in no distress, he denies any complaints there is no fever or chills no headache or dizziness no chest pain no shortness of breath no palpitation no cough no nausea or vomiting no abdominal pain no diarrhea no blood in the stools no burning with urination no frequency or urgency and no hematuria, patient was encouraged again to increase his oral intake. On 01/01/2021 Patient was seen and examined on the medical floor, he is alert and oriented x 3 in no distress, he denies any complaints there is no fever or chills no headache or dizziness no chest pain no shortness of breath no palpitation no cough no nausea or vomiting no abdominal pain no diarrhea no blood in the stools no burning with urination no frequency or urgency and no hematuria, there is no weakness or numbness in any of the extremities no change in vision speech or gait., Patient still has very low oral intake, at this time after prolonged discussion with patient and with his nephew Kane Reveles, patient is now agreeable to proceeding with PEG tube for feeding. On 01/02/2021 Patient was seen and examined on the medical floor, he is alert and oriented x 3 in no distress, he denies any complaints there is no fever or chills no headache or dizziness no chest pain no shortness of breath no palpitation no cough no nausea or vomiting no abdominal pain no diarrhea no blood in the stools no burning with urination no frequency or urgency and no hematuria, per nursing staff patient is having a little bit more oral intake today otherwise no change in condition. On 01/03/2021 patient was seen and examined on the medical floor, he is alert and oriented 3 in no distress, today he ate 75% of his meals and seems to be more alert, he is maintained on oxygen at 6 L nasal cannula and oxygen saturation is 92%, he is denying any complaints at this time, patient can possibly be discharged tomorrow he was encouraged to continue to increase his oral intake, will continue with Megace for appetite stimulant will follow in a.m. On 01/04/2021 Patient was seen and examined on the medical floor, he is alert and oriented x 3 in no distress, he is complaining of feeling tired and having generalized weakness otherwise he denies any complaints there is no fever or chills no headache or dizziness no chest pain no shortness of breath no palpitation no cough no nausea or vomiting no abdominal pain no diarrhea no blood in the stools no burning with urination no frequency or urgency and no hematuria. At this time patient is not ready yet for discharge, will continue with current management, will recheck in a.m., patient encouraged again in re alvaro to increasing oral intake, he has anemia with a hemoglobin of 8.0 will give 1 more dose of IV iron today. On 01/05/2021 patient was seen and examined on the medical floor, he is somnolent, responsive to stimuli, answer questions by yes or no and close his eyes again, his condition has deteriorated significantly in the last 24 hours, patient is again not taking any oral intake, at this time possibility of comfort care only was discussed with his family, I called his nephew Kane Reveles on the form, and he stated that he is in agreement with comfort care only, however his brother is coming from [place] to see him, and he wanted him to get medications to keep him comfortable, however he did not want antibiotic and steroid to be discontinued at this time until his brother comes here from [place]. Patient was started on IV morphine 1 mg every 2 hours as needed pain or discomfort, at this time will continue with IV fluid, IV antibiotic, and IV steroids, will monitor closely prognosis is poor Objective - Vital Signs Vital signs: Vital Signs Temp 97.6 F 01/05/21 08:14 Pulse 90 01/05/21 08:14 Resp 21 01/05/21 08:14 BP 110/68 01/05/21 08:14 Pulse Ox 96 01/05/21 08:14 Intake & Output 01/04/21 01/05/21 01/05/21 18:59 06:59 18:59 Intake Total 686 Output Total 200 200 Balance 486 -200 Weight 33 kg Intake: Intake, IV Titration 250 Amount Cefepime 1 gm In Sodium 100 Chloride 0.9% 50 ml @ 12. 5 mls/hr IVPB DAILY [facility] Rx#:[id number] Lactated Ringers 1,000 ml 50 @ 50 mls/hr IV .Q20H [facility] Rx#:[id number] Sodium Ferric Gluconat- 100 Sucrose 125 mg In Sodium Chloride 0.9% 100 ml @ 100 mls/hr IVPB ONCE ONE Rx#:[id number] Oral 436 Output: Urine 200 200 Other: Voiding Method Urinal Diaper # Voids 1 1 # Bowel Movements 1 1 - Exam In general patient is somnolent, responsive to stimuli HEENT head normocephalic and atraumatic Neck is supple no JVD no goiter no lymphadenopathy no carotid bruit Chest examination is clear to auscultation no crackles no wheezing Cardiac exam reveals regular heart sounds S1 and S2 no gallops no murmurs Abdomen is soft nontender no organomegaly with normal bowel sounds Extremity exam reveals no edema no cyanosis or clubbing Neurological examination reveals no gross focal deficits - Labs CBC & Chem 7: 01/05/21 09:59 01/05/21 09:59 Labs: Abnormal Lab Results - Last 24 Hours (Table) 01/04/21 Range/Units 08:25 WBC 12.1 H (3.8-10.6) k/uL RBC 2.71 L (4.30-5.90) m/uL Hgb 8.0 L (13.0-17.5) gm/dL Hct 26.4 L (39.0-53.0) % MCHC 30.1 L (31.0-37.0) g/dL RDW 22.3 H (11.5-15.5) % Neutrophils # (Manual) 11.01 H (1.3-7.7) k/uL Lymphocytes # (Manual) 0.24 L (1.0-4.8) k/uL Myelocytes # (Manual) 0.12 H (0) k/uL Nucleated RBCs 10 H (0-0) /100 WBC Assessment and Plan Plan: 1. COVID-19 infection 2. Bilateral interstitial pneumonia, possibly related to COVID-19, however bacterial superimposed infection cannot be ruled out 3. Evidence of sepsis, with leukocytosis, hypotension, and elevated lactic acid 4. Acute on chronic renal failure, creatinine on admission in August was 1.5 nephrology consultation requested 5. Severe hyperkalemia 6. Underlying history of COPD 7. Recent history of stroke in August 2020 8. Underlying history of hypertension 9. Underlying history of hyperlipidemia 10. Underlying history of coronary artery disease with previous history of coronary artery bypass graft surgery 11. Underlying history of multiple lumbar compression vertebral fractures. 12. Previous history of anemia and history of GI bleed, Hgb down to 7.7 will consult GI At this time patient is admitted to telemetry floor He received IV fluid boluses He was started on IV heparin and IV Cardizem drip He was started on IV antibiotic Rocephin and Zithromax He was started on steroids prednisone 40 mg daily Pulmonary, nephrology, infectious disease and cardiology consultation requested. Prognosis is poor due to advanced age, severity of illness, and multiple underlying medical conditions Today I spoke was patient nephew for a prolonged phone call. Issues regarding nutrition were discussed in details, poor oral intake on the part of the patient was discussed despite appetite stimulant. Insertion of nasogastric tube for feeding several days ago and the fact that patient has pu lled it out and is refusing to have it put back in again was discussed, also possibility of a PEG tube for feeding was discussed, the nephew Kane Reveles will discuss this issues with his family and with patient and will get back with me this afternoon. Also, issues regarding CODE STATUS were discussed in details, I strongly urged his nephew to change his CODE STATUS to no code as he would most likely not survive having a cold and being on a ventilator. The nephew also will discuss all these issues with his other family members and with patient and we will get back with me this afternoon
[2021-01-05] MEDS: LACTATED RINGERS 1,000 ML IV SCH (17:11)
--- NOTE | 2021-01-05 19:53 | PN ---
PROGRESS NOTE DATE OF SERVICE: 01/05/2021 REASON FOR FOLLOWUP: Gram-negative pneumonia. INTERVAL HISTORY: Patient is afebrile. The patient is breathing comfortably. Patient is slightly sleepy, lethargic today. No vomiting or diarrhea has been reported by the nursing staff. PHYSICAL EXAMINATION: Blood pressure is 103/60 with a pulse of 58, temperature 98.9. He is 97% on room air. General description: The patient is an elderly male lying in bed in no distress. Respiratory system: Unlabored breathing. Decreased breath sounds in the bases. No wheeze. HEART S1, S2. Regular rate and rhythm. ABDOMEN: Soft, no tenderness. LABS: Hemoglobin is 10.8, white count 16, BUN of 18, creatinine 2.90. DIAGNOSTIC IMPRESSION AND PLAN: Patient with Gram-negative pneumonia for which the patient has been on cefepime. Did have overall worsening of his respiratory status and decreased oral intake. Consideration for possible hospice may be appropriate. Continue cefepime at this point and monitor clinical course closely. MMODL / IJN: [id number] / GINA
[2021-01-06] MEDS: MORPHINE SULFATE 2 MG/ML SYRINGE IVP PRN ×4 (00:30→17:52)
[2021-01-06] MEDS: LACTATED RINGERS 1,000 ML IV SCH (05:50)
[2021-01-06] MEDS: CEFEPIME 1 GM in SODIUM CHLORIDE 0.9% 50 ML IVPB SCH (08:44)
[2021-01-06] MEDS: DEXAMETHASONE SOD PHOSPHATE 10 MG/ML 1 ML VIAL IV SCH ×2 (08:46→10:41)
[2021-01-06] MEDS: ENOXAPARIN 30 MG/0.3 ML SYRINGE SQ SCH ×2 (08:47→10:41)
--- NOTE | 2021-01-06 10:22 | P.PN ---
Subjective Progress Note Date: 01/06/21 Principal diagnosis: This is an 89-year-old male seen in consultation because of acute kidney injury, COVID pneumonia. His creatinine is Going up from 2.16-2.72-2.8, likely from blood pressure being somewhat low in the 90s to 120 range. No history of nausea vomiting diarrhea a ppetite is poor. He is on lactated Ringer's at 50 an hour. He is deteriorating today with extreme shortness of breath. Family is considering hospice care He does not have Tabor catheter output is not accurately measured Known with coronary artery disease, history of CABG, COPD seizure disorder and a recent stroke in August 2020 Visit vital signs are stable blood pressure is somewhat low in the 90s to 120 range, afebrile heart rate in the 90s to 110 Objective - Vital Signs Vital signs: Vital Signs Temp 96.9 F L 01/06/21 08:00 Pulse 110 H 01/06/21 08:00 Resp 30 H 01/06/21 08:00 BP 101/64 01/06/21 08:00 Pulse Ox 92 L 01/06/21 08:00 Intake & Output 01/05/21 01/06/21 01/06/21 18:59 06:59 18:59 Output Total 176 2 1 Balance -176 -2 -1 Output: Urine 175 Stool 1 2 1 Other: Voiding Method Urinal Urinal Diaper Diaper # Voids 1 # Bowel Movements 1 Examination extremely short of breath. On nasal cannula oxygen HEENT exam no JVP neck is supple no facial asymmetry Lungs are significantly normal with good air entry although chest x-ray showing complete workup infiltration of both lung phillips pressure in the right side. Heart sounds unremarkable for any murmur rub gallop Abdomen soft nontender Extremity exam reveals no edema - Labs CBC & Chem 7: 01/05/21 09:59 01/05/21 09:59 Labs: Abnormal Lab Results - Last 24 Hours (Table) 01/05/21 01/05/21 Range/Units 09:59 09:59 WBC 16.0 H (3.8-10.6) k/uL RBC 2.41 L (4.30-5.90) m/uL Hgb 7.4 L (13.0-17.5) gm/dL Hct 23.3 L (39.0-53.0) % RDW 22.8 H (11.5-15.5) % Neutrophils # (Manual) 14.70 H (1.3-7.7) k/uL Lymphocytes # (Manual) 0.48 L (1.0-4.8) k/uL Metamyelocytes # (Man) 0.16 H (0) k/uL Nucleated RBCs 29 H (0-0) /100 WBC Chloride 121 H (98-107) mmol/L Carbon Dioxide 13 L (22-30) mmol/L BUN 88 H (9-20) mg/dL Creatinine 2.80 H (0.66-1.25) mg/dL Glucose 130 H (74-99) mg/dL Calcium 8.1 L (8.4-10.2) mg/dL Total Protein 5.6 L (6.3-8.2) g/dL Albumin 2.7 L (3.5-5.0) g/dL Assessment and Plan Assessment: Impression 1. Acute kidney injury secondary: COVID 19 pneumonia. After improving, creatinine worsening again. on admission was 5 improved but again is worsening again. Creatinine was 1.8-1 12/22/2020 and this has been slowly going up to 2.7 to and, 2.8 as of yesterday This may be related to reduced intake, low blood pressure, ongoing chronic lung disease now from his pneumonia 2. Chronic kidney disease creatinine has been 1.7-2.1 earlier this year August and October 2020. Etiology is nephrosclerosis, urinalysis benign no proteinuria dated 12/21/2020 3. Anemia hemoglobin is 8.0, down to 7.4 yesterday 4. Worsening of metabolic acidosis with bicarb going down from 21 slowly down to 13 today with a gap of 10 from acute kidney injury. Recommendation 1. Obtain chest x-ray, 2. Discontinue by mouth bicarb 3. Start IV bicarbonate, will change in IV fluids to D5 with 3 Amps of bicarb at 75 an hour. 4. Transfuse 1 unit of packed cells 5. Reduce metoprolol 100 twice a day to 50 twice a day and hold for blood pressure less than 110
[2021-01-06] MEDS ORDERED: DEXTROSE 5% IN WATER 1,000 ML with SODIUM BICARB (1 MEQ/ML) 150 ML IV ONE (10:24)
[2021-01-06] MEDS ORDERED: FUROSEMIDE 10 MG/ML 10 ML VIAL IV STA (10:29)
[2021-01-06] MEDS: ASCORBIC ACID 500 MG TAB PO SCH (10:40)
[2021-01-06] MEDS: CHOLECALCIFEROL 25 MCG (1000 IU) TABLET PO SCH (10:40)
[2021-01-06] MEDS: METOPROLOL TARTRATE 50 MG TAB PO SCH ×2 (10:40→19:48)
[2021-01-06] MEDS: SODIUM BICARBONATE TAB 650 MG TAB PO SCH ×2 (10:40→19:49)
[2021-01-06] MEDS: ZINC SULFATE 220 MG CAP PO SCH (10:40)
[2021-01-06] MEDS: ASPIRIN 81 MG PO SCH (10:40)
[2021-01-06] MEDS: MEGESTROL 400 MG/10 ML CUP PO SCH ×2 (10:41→19:48)
--- NOTE | 2021-01-06 14:42 | P.PN ---
Subjective Progress Note Date: 01/06/21 Fitz Blue, is an 89 year old male who presented to [facility] emergency room with a chief complaint of worsening shortness of breath, patient stated that he started having shortness of breath on the day of presentation that progressed to significant breathing difficulty EMS were sushma smith, they found patient to be in significant respiratory distress he was started on nonrebreather mask and was treated with IV Solu-Medrol and DuoNeb updrafts and was brought in to [facility] emergency room. In the emergency room patient was evaluated, his vital examination on presentation revealed a temperature of 98.6 pulse 142 respiration 18 blood pressure 99/78 pulse ox 94% on room air, laboratory data on presentation revealed a white blood count of 13.5 hemoglobin 10.5 platelet count 134 d-dimer 3.88, sodium 140 potassium 5.3 chloride 106 CO2 16 BUN 19 9 creatinine 5.09 glucose level was 136 plasma lactic acid was 3.5 troponin level was elevated at 0.105 C-reactive p rotein 58.6 Procalcitonin more than 100 and coronavirus PCR was positive. Chest x-ray was done in the emergency room and revealed bilateral interstitial pneumonia, cardiomegaly, small right pleural effusion and pleural reaction , EKG was done in the emergency room and revealed atrial fibrillation with rapid ventricular response and nonspecific ST abnormality . Patient was admitted to telemetry floor for further evaluation and treatment. Patient was admitted to [facility] in August 2020 after having a stroke, he was discharged to [facility] on the [facility] for rehabilit ation and was discharged home about 6 weeks ago. His past medical history is also significant for hypertension, hyperlipidemia, coronary artery disease with history of coronary artery bypass graft surgery, history of COPD, history of pulmonary hypertension, history of multiple lumbar compression vertebral fractures, history of anemia, history of carotid stenosis, history of osteoarthritis, and history of protein calorie malnutrition. On 12/17/2020 patient was seen and examined on the medical floor he is alert and oriented 3 in no apparent distress he is complaining of nausea otherwise he de nies any complaints there is no fever or chills no headache or dizziness no chest pain no shortness of breath no cough no vomiting no abdominal pain no diarrhea no blood in the stools no burning with urination no frequency or urgency and no hematuria. Kidney function has improved significantly since yesterday, otherwise no change in condition. On 12/18/2020 patient was seen and examined on the medical floor he is alert and oriented 3 in no apparent distress he is complaining of nausea otherwise he denies any complaints there is no fever or chills no headache or dizziness no chest pain , he has some shortness of breath no cough no vomiting no abdominal pain no diarrhea no blood in the stools no burning with urination no frequency or urgency and no hematuria. Kidney function has improved significantly since yesterday, otherwise no change in condition. On 12/19/2020 patient was seen and examined on the medical floor he is alert and oriented 3 in no apparent distress he is complaining of nausea otherwise he denies any complaints there is no fever or chills no headache or dizziness no chest pain , he has some shortness of breath no cough no vomiting no abdominal pain no diarrhea no blood in the stools no burning with urination no frequency or urgency and no hematuria. Kidney function has improved significantly since yesterday, otherwise no change in condition. BNP is significantly elevated, patient still having shortness of breath, will check Echocardiogram and consult cardiology. On 12/20/2020 patient was seen and examined on the medical floor he is alert and oriented 3 in no apparent distress he is complaining of nausea otherwise he denies any complaints there is no fever or chills no headache or dizziness no chest pain , he has some shortness of breath no cough no vomiting no abdominal pain no diarrhea no blood in the stools no burning with urination no frequency or urgency and no hematuria. Kidney function has improved significantly since yesterday, otherwise no change in condition. BNP is significantly elevated, patient still having shortness of breath, will check Echocardiogram and consult cardiology. patient was started on IV lasix, awaiting Echo. On 12/21/2020 patient was seen and examined on the medical floor he is alert and oriented 3 in no apparent distress he is complaining of nausea otherwise he denies any complaints there is no fever or chills no headache or dizziness no chest pain , he has some shortness of breath no cough no vomiting no abdominal pain no diarrhea no blood in the stools no burning with urination no frequency or urgency and no hematuria. Kidney function has improved significantly since yesterday, otherwise no change in condition. BNP is significantly elevated, patient still having shortness of breath, will check Echocardiogram and consult cardiology. patient was started on IV lasix, repeat CXR ordered for tomorrow. On 12/22/2020 patient was seen and examined on the medical floor he is alert and oriented 3 in no apparent distress he is complaining of nausea otherwise he denies any complaints there is no fever or chills no headache or dizziness no chest pain , he has some shortness of breath no cough no vomiting no abdominal pain no diarrhea no blood in the stools no burning with urination no frequency or urgency and no hematuria. Kidney function has improved significantly since yesterday, otherwise no change in condition. BNP is significantly elevated, patient still having shortness of breath, will check Echocardiogram and consult cardiology. patient was started on IV lasix, repeat CXR ordered for tomorrow. at this time will switch to oral lasix and oral Decadron continue to monitor, possi ble discharge in the next 1-2 days. On 12/23/2020 Patient was seen and examined on the medical floor, he is alert and oriented x 3 in no distress, he denies any complaints there is no fever or chills no headache or dizziness no chest pain no shortness of breath no palpitation no cough no nausea or vomiting no abdominal pain no diarrhea no blood in the stools no burning with urination no frequency or urgency and no hematuria, there is no weakness or numbness in any of the extremities no change in vision speech or gait. White blood count is still significantly elevated pro calcitonin is elevated chest x-rays revealing some worsening infectious disease following awaiting further recommendation will continue to monitor On 12/24/2020 Patient was seen and examined on the medical floor, he is alert and oriented x 3 in no distress, he denies any complaints there is no fever or chills no headache or dizziness no chest pain no shortness of breath no palpitation no cough no nausea or vomiting no abdominal pain no diarrhea no blood in the stools no burning with urination no frequency or urgency and no hematuria, there is no weakness or numbness in any of the extremities no change in vision speech or gait. White blood count is still significantly elevated pro calcitonin is elevated chest x-rays revealing some worsening opacities, infectious disease following awaiting further recommendation will continue to monitor, today Will decrease dose of Decadron and continue to monitor On 12/25/2020 Patient was seen and examined on the medical floor, he is alert and oriented x 3 in no distress, he denies any complaints there is no fever or chills no headache or dizziness no chest pain no shortness of breath no palpitation no cough no nausea or vomiting no abdominal pain no diarrhea no blood in the stools no burning with urination no frequency or urgency and no hematuria, there is no weakness or numbness in any of the extremities no change in vision speech or gait. Hemoglobin is down to 6.8 today 1 unit of red blood cell transfusion was ordered will follow closely On 12/27/2020 Patient was seen and examined on the medical floor, he is alert and oriented x 3 in no distress, he has very poor oral intake he denies any complaints there is no fever or chills no headache or dizziness no chest pain no shortness of breath no palpitation no cough no nausea or vomiting no abdominal pain no diarrhea no blood in the stools no burning with urination no frequency or urgency and no hematuria, there is no weakness or numbness in any of the extremities no change in vision speech or gait. Nutrition are recommending appetite stimulant patient will be started on Megace. On 12/28/2020 Patient was seen and examined on the medical floor, he is alert and oriented x 3 in no distress, he denies any complaints there is no fever or chills no headache or dizziness no chest pain no shortness of breath no palpitation no cough no nausea or vomiting no abdominal pain no diarrhea no blood in the stools no burning with urination no frequency or urgency and no hematuria, patient has very poor oral intake, recommendation by nutrition is to start a Dobbhoff tube with enteral feeding will proceed as above. On 12/29/2020 Patient was seen and examined on the medical floor, he is alert and oriented x 3 in no distress, he denies any complaints there is no fever or chills no headache or dizziness no chest pain no shortness of breath no palpitation no cough no nausea or vomiting no abdominal pain no diarrhea no blood in the stools no burning with urination no frequency or urgency and no he maturia, patient was unable to tolerate Dobbhoff tube he pulled it out last night, gastroenterology are following, will monitor patient oral intake and decide whether there is an indication for a PEG tube if patient agrees for that. On 12/30/2020 Patient was seen and examined on the medical floor, he is alert and oriented x 3 in no distress, he denies any complaints there is no fever or chills no headache or dizziness no chest pain no shortness of breath no palpitation no cough no nausea or vomiting no abdominal pain no diarrhea no blood in the stools no burning with urination no frequency or urgency and no hematuria, dietitian is stating that patient is still having very low oral intake. I have discussed possibility of PEG tube with patient, at this time he is stating that he does not want a PEG tube and he is going to try to eat more, will continue to monitor closely. On 12/31/2020 Patient was seen and examined on the medical floor, he is alert and oriented x 3 in no distress, he denies any complaints there is no fever or chills no headache or dizziness no chest pain no shortness of breath no palpitation no cough no nausea or vomiting no abdominal pain no diarrhea no blood in the stools no burning with urination no frequency or urgency and no hematuria, patient was encouraged again to increase his oral intake. On 01/01/2021 Patient was seen and examined on the medical floor, he is alert and oriented x 3 in no distress, he denies any complaints there is no fever or chills no headache or dizziness no chest pain no shortness of breath no palpitation no cough no nausea or vomiting no abdominal pain no diarrhea no blood in the stools no burning with urination no frequency or urgency and no hematuria, there is no weakness or numbness in any of the extremities no change in vision speech or gait., Patient still has very low oral intake, at this time after prolonged discussion with patient and with his nephew Kane Reveles, patient is now agreeable to proceeding with PEG tube for feeding. On 01/02/2021 Patient was seen and examined on the medical floor, he is alert and oriented x 3 in no distress, he denies any complaints there is no fever or chills no headache or dizziness no chest pain no shortness of breath no palpitation no cough no nausea or vomiting no abdominal pain no diarrhea no blood in the stools no burning with urination no frequency or urgency and no hematuria, per nursing staff patient is having a little bit more oral intake today otherwise no change in condition. On 01/03/2021 patient was seen and examined on the medical floor, he is alert and oriented 3 in no distress, today he ate 75% of his meals and seems to be more alert, he is maintained on oxygen at 6 L nasal cannula and oxygen saturation is 92%, he is denying any complaints at this time, patient can possibly be discharged tomorrow he was encouraged to continue to increase his oral intake, will continue with Megace for appetite stimulant will follow in a.m. On 01/04/2021 Patient was seen and examined on the medical floor, he is alert and oriented x 3 in no distress, he is complaining of feeling tired and having generalized weakness otherwise he denies any complaints there is no fever or chills no headache or dizziness no chest pain no shortness of breath no palpitation no cough no nausea or vomiting no abdominal pain no diarrhea no blood in the stools no burning with urination no frequency or urgency and no hematuria. At this time patient is not ready yet for discharge, will continue with current management, will recheck in a.m., patient encouraged again in re alvaro to increasing oral intake, he has anemia with a hemoglobin of 8.0 will give 1 more dose of IV iron today. On 01/05/2021 patient was seen and examined on the medical floor, he is somnolent, responsive to stimuli, answer questions by yes or no and close his eyes again, his condition has deteriorated significantly in the last 24 hours, patient is again not taking any oral intake, at this time possibility of comfort care only was discussed with his family, I called his nephew Kane Reveles on the form, and he stated that he is in agreement with comfort care only, however his brother is coming from [place] to see him, and he wanted him to get medications to keep him comfortable, however he did not want antibiotic and steroid to be discontinued at this time until his brother comes here from [place]. Patient was started on IV morphine 1 mg every 2 hours as needed pain or discomfort, at this time will continue with IV fluid, IV antibiotic, and IV steroids, will monitor closely prognosis is poor. On 01/06/2021 patient is alert confused in no apparent distress, he had episodes of mild agitation and had received 2 doses of IV morphine so far today he has very poor oral intake otherwise no complaints at this. Patient continues to be on IV antibiotic and IV steroids, we are awaiting his nephew to drive in his father from [place] to see his brother, prior to changing his CODE STATUS to comfort care only, per family request. Objective - Vital Signs Vital signs: Vital Signs Temp 96.9 F L 01/06/21 08:00 Pulse 110 H 01/06/21 08:00 Resp 30 H 01/06/21 08:00 BP 101/64 01/06/21 08:00 Pulse Ox 92 L 01/06/21 08:00 Intake & Output 01/05/21 01/06/21 01/06/21 18:59 06:59 18:59 Output Total 176 2 Balance -176 -2 Output: Urine 175 Stool 1 2 Other: Voiding Method Urinal Urinal Diaper Diaper # Voids 1 # Bowel Movements 1 - Exam In general patient is somnolent, responsive to stimuli HEENT head normocephalic and atraumatic Neck is supple no JVD no goiter no lymphadenopathy no carotid bruit Chest examination is clear to auscultation no crackles no wheezing Cardiac exam reveals regular heart sounds S1 and S2 no gallops no murmurs Abdomen is soft nontender no organomegaly with normal bowel sounds Extremity exam reveals no edema no cyanosis or clubbing Neurological examination reveals no gross focal deficits - Labs CBC & Chem 7: 01/05/21 09:59 01/05/21 09:59 Labs: Abnormal Lab Results - Last 24 Hours (Table) 01/05/21 01/05/21 Range/Units 09:59 09:59 WBC 16.0 H (3.8-10.6) k/uL RBC 2.41 L (4.30-5.90) m/uL Hgb 7.4 L (13.0-17.5) gm/dL Hct 23.3 L (39.0-53.0) % RDW 22.8 H (11.5-15.5) % Neutrophils # (Manual) 14.70 H (1.3-7.7) k/uL Lymphocytes # (Manual) 0.48 L (1.0-4.8) k/uL Metamyelocytes # (Man) 0.16 H (0) k/uL Nucleated RBCs 29 H (0-0) /100 WBC Chloride 121 H (98-107) mmol/L Carbon Dioxide 13 L (22-30) mmol/L BUN 88 H (9-20) mg/dL Creatinine 2.80 H (0.66-1.25) mg/dL Glucose 130 H (74-99) mg/dL Calcium 8.1 L (8.4-10.2) mg/dL Total Protein 5.6 L (6.3-8.2) g/dL Albumin 2.7 L (3.5-5.0) g/dL Assessment and Plan Plan: 1. COVID-19 infection 2. Bilateral interstitial pneumonia, possibly related to COVID-19, however bacterial superimposed infection cannot be ruled out 3. Evidence of sepsis, with leukocytosis, hypotension, and elevated lactic acid 4. Acute on chronic renal failure, creatinine on admission in August was 1.5 nephrology consultation requested 5. Severe hyperkalemia 6. Underlying history of COPD 7. Recent history of stroke in August 2020 8. Underlying history of hypertension 9. Underlying history of hyperlipidemia 10. Underlying history of coronary artery disease with previous history of coronary artery bypass graft surgery 11. Underlying history of multiple lumbar compression vertebral fractures. 12. Previous history of anemia and history of GI bleed, Hgb down to 7.7 will consult GI At this time patient is admitted to telemetry floor He received IV fluid boluses He was started on IV heparin and IV Cardizem drip He was started on IV antibiotic Rocephin and Zithromax He was started on steroids prednisone 40 mg daily Pulmonary, nephrology, infectious disease and cardiology consultation requested. Prognosis is poor due to advanced age, severity of illness, and multiple underlying medical conditions Today I spoke was patient nephew for a prolonged phone call. Issues regarding nutrition were discussed in details, poor oral intake on the part of the patient was discussed despite appetite stimulant. Insertion of nasogastric tube for feeding several days ago and the fact that patient has pulled it out and is refusing to have it put back in again was discussed, also possibility of a PEG tube for feeding was discussed, the nephew Kane Reveles will discuss this issues with his family and with patient and will get back with me this afternoon. Also, issues regarding CODE STATUS were discussed in details, I strongly urged his nephew to change his CODE STATUS to no code as he would most likely not survive having a cold and being on a ventilator. The nephew also will discuss all these issues with his other family members and with patient and we will get back with me this afternoon
--- NOTE | 2021-01-06 18:41 | PN ---
PROGRESS NOTE DATE OF SERVICE: 01/06/2021 REASON FOR FOLLOWUP: Gram-negative pneumonia. INTERVAL HISTORY: The patient is afebrile. The patient remains slightly lethargic today though, not a good historian. However, he is currently on 5 L nasal cannula. No vomiting, diarrhea or any other changes reported by nursing staff. PHYSICAL EXAMINATION: Blood pressure 96/53, pulse of 104, temperature 97.2. He is 97% on 5 L nasal cannula. General description is an elderly male lying in bed in no distress. Respiratory system: Unlabored breathing, coarse breath sounds bilaterally. Heart S1, S2. Regular rate and rhythm. Abdomen soft, no tenderness. LABS: Hemoglobin 7.8, white count 16,000, BUN of 88, creatinine is 2.80. DIAGNOSTIC IMPRESSION AND PLAN: Patient with Gram-negative pneumonia. Sputum has been Serratia and Pseudomonas, covered with cefepime. Worsening white count more likely due to steroid effect and will be monitored closely. Continue supportive care. MMODL / IJN: [id number] /
[2021-01-07] MEDS: DEXTROSE 5% IN WATER 1,000 ML with SODIUM BICARB (1 MEQ/ML) 150 ML IV SCH ×2 (01:46→21:09)
[2021-01-07] MEDS: MORPHINE SULFATE 2 MG/ML SYRINGE IVP PRN ×3 (03:22→20:11)
[2021-01-07] MEDS: CEFEPIME 1 GM in SODIUM CHLORIDE 0.9% 50 ML IVPB SCH (09:58)
[2021-01-07] MEDS: ENOXAPARIN 30 MG/0.3 ML SYRINGE SQ SCH (09:59)
[2021-01-07] MEDS: CHOLECALCIFEROL 25 MCG (1000 IU) TABLET PO SCH (10:18)
[2021-01-07] MEDS: ASPIRIN 81 MG PO SCH (10:18)
[2021-01-07] MEDS: ASCORBIC ACID 500 MG TAB PO SCH (10:18)
[2021-01-07] MEDS: MEGESTROL 400 MG/10 ML CUP PO SCH ×2 (10:19→19:39)
[2021-01-07] MEDS: SODIUM BICARBONATE TAB 650 MG TAB PO SCH ×2 (10:19→19:40)
[2021-01-07] MEDS: METOPROLOL TARTRATE 50 MG TAB PO SCH ×2 (10:19→19:39)
[2021-01-07] MEDS: DEXAMETHASONE SOD PHOSPHATE 10 MG/ML 1 ML VIAL IV SCH ×2 (10:19→20:11)
[2021-01-07] MEDS: ZINC SULFATE 220 MG CAP PO SCH (10:19)
[2021-01-07] MEDS: DARBEPOETIN ALFA 40 MCG/0.4 ML SYRINGE SQ SCH (13:26)
--- NOTE | 2021-01-07 14:16 | PN ---
PROGRESS NOTE DATE OF SERVICE: 01/07/2021 REASON FOR FOLLOWUP: Gram-negative pneumonia. INTERVAL HISTORY: Patient is currently afebrile. The patient seemed to be lethargic and unable to provide any history. No vomiting, diarrhea. No changes reported by the nursing staff. EXAMINATION: Blood pressure 105/59, pulse 121, temperature 98.4. He is 99% on 5 L nasal cannula. General description is an elderly male lying in in no distress. Respiratory system: Unlabored breathing, decreased breath sounds in the base. Heart S1, S2. Tachycardia. ABDOMEN: Soft, no tenderness. EXTREMITIES: No edema of the feet. LABS: No new labs have been obtained today. DIAGNOSTIC IMPRESSION AND PLAN: Patient with Gram-negative pneumonia for which the patient has been on cefepime. The patient has seemed to have worsening of his clinical status and possible consideration for hospice. Cefepime to continue until the final decision made and monitor clinical course closely. MMODL / IJN: [id number] /
[2021-01-07 14:35] VITALS: BMI 10.9
--- NOTE | 2021-01-07 14:48 | PN ---
PROGRESS NOTE Patient is seen for followup for acute kidney injury and chronic kidney disease. His renal function has worsened over the last couple of days. Patient has not been eating much. There is consideration for possible hospice care. The patient's family are awaiting the rest of the family members to arrive. PHYSICAL EXAMINATION: On examination today, patient is lying in bed. He is mildly short of breath. He is maintained on high-flow oxygen currently at 5 L. Heart rate this morning was 96 per minute he is afebrile. Examination shows no evidence of edema bilateral lower extremities. Heart and lungs are not examined. Patient is sleeping but arousable. LAB: Show sodium of 144, potassium 4.7, chloride 121, BUN 88, serum creatinine 2.8. These labs are from 01/05/2021. ASSESSMENT: 1. Acute kidney injury, acute tubular necrosis/prerenal currently with decreased oral intake. Maintained on IV fluids. No repeat labs available. The patient has been incontinent and he has had urine output. 2. COVID pneumonia. 3. Generalized debility. 4. Metabolic acidosis. PLAN: Agree with the plans for hospice care. Continue with the bicarb drip in the meantime. MMODL / IJN: [id number] /
--- NOTE | 2021-01-07 17:33 | P.PN ---
Subjective Progress Note Date: 01/07/21 Fitz Blue, is an 89 year old male who presented to [facility] emergency room with a chief complaint of worsening shortness of breath, patient stated that he started having shortness of breath on the day of presentation that progressed to significant breathing difficulty EMS were sushma smith, they found patient to be in significant respiratory distress he was started on nonrebreather mask and was treated with IV Solu-Medrol and DuoNeb updrafts and was brought in to [facility] emergency room. In the emergency room patient was evaluated, his vital examination on presentation revealed a temperature of 98.6 pulse 142 respiration 18 blood pressure 99/78 pulse ox 94% on room air, laboratory data on presentation revealed a white blood count of 13.5 hemoglobin 10.5 platelet count 134 d-dimer 3.88, sodium 140 potassium 5.3 chloride 106 CO2 16 BUN 19 9 creatinine 5.09 glucose level was 136 plasma lactic acid was 3.5 troponin level was elevated at 0.105 C-reactive p rotein 58.6 Procalcitonin more than 100 and coronavirus PCR was positive. Chest x-ray was done in the emergency room and revealed bilateral interstitial pneumonia, cardiomegaly, small right pleural effusion and pleural reaction , EKG was done in the emergency room and revealed atrial fibrillation with rapid ventricular response and nonspecific ST abnormality . Patient was admitted to telemetry floor for further evaluation and treatment. Patient was admitted to [facility] in August 2020 after having a stroke, he was discharged to [facility] on the [facility] for rehabilit ation and was discharged home about 6 weeks ago. His past medical history is also significant for hypertension, hyperlipidemia, coronary artery disease with history of coronary artery bypass graft surgery, history of COPD, history of pulmonary hypertension, history of multiple lumbar compression vertebral fractures, history of anemia, history of carotid stenosis, history of osteoarthritis, and history of protein calorie malnutrition. On 12/17/2020 patient was seen and examined on the medical floor he is alert and oriented 3 in no apparent distress he is complaining of nausea otherwise he de nies any complaints there is no fever or chills no headache or dizziness no chest pain no shortness of breath no cough no vomiting no abdominal pain no diarrhea no blood in the stools no burning with urination no frequency or urgency and no hematuria. Kidney function has improved significantly since yesterday, otherwise no change in condition. On 12/18/2020 patient was seen and examined on the medical floor he is alert and oriented 3 in no apparent distress he is complaining of nausea otherwise he denies any complaints there is no fever or chills no headache or dizziness no chest pain , he has some shortness of breath no cough no vomiting no abdominal pain no diarrhea no blood in the stools no burning with urination no frequency or urgency and no hematuria. Kidney function has improved significantly since yesterday, otherwise no change in condition. On 12/19/2020 patient was seen and examined on the medical floor he is alert and oriented 3 in no apparent distress he is complaining of nausea otherwise he denies any complaints there is no fever or chills no headache or dizziness no chest pain , he has some shortness of breath no cough no vomiting no abdominal pain no diarrhea no blood in the stools no burning with urination no frequency or urgency and no hematuria. Kidney function has improved significantly since yesterday, otherwise no change in condition. BNP is significantly elevated, patient still having shortness of breath, will check Echocardiogram and consult cardiology. On 12/20/2020 patient was seen and examined on the medical floor he is alert and oriented 3 in no apparent distress he is complaining of nausea otherwise he denies any complaints there is no fever or chills no headache or dizziness no chest pain , he has some shortness of breath no cough no vomiting no abdominal pain no diarrhea no blood in the stools no burning with urination no frequency or urgency and no hematuria. Kidney function has improved significantly since yesterday, otherwise no change in condition. BNP is significantly elevated, patient still having shortness of breath, will check Echocardiogram and consult cardiology. patient was started on IV lasix, awaiting Echo. On 12/21/2020 patient was seen and examined on the medical floor he is alert and oriented 3 in no apparent distress he is complaining of nausea otherwise he denies any complaints there is no fever or chills no headache or dizziness no chest pain , he has some shortness of breath no cough no vomiting no abdominal pain no diarrhea no blood in the stools no burning with urination no frequency or urgency and no hematuria. Kidney function has improved significantly since yesterday, otherwise no change in condition. BNP is significantly elevated, patient still having shortness of breath, will check Echocardiogram and consult cardiology. patient was started on IV lasix, repeat CXR ordered for tomorrow. On 12/22/2020 patient was seen and examined on the medical floor he is alert and oriented 3 in no apparent distress he is complaining of nausea otherwise he denies any complaints there is no fever or chills no headache or dizziness no chest pain , he has some shortness of breath no cough no vomiting no abdominal pain no diarrhea no blood in the stools no burning with urination no frequency or urgency and no hematuria. Kidney function has improved significantly since yesterday, otherwise no change in condition. BNP is significantly elevated, patient still having shortness of breath, will check Echocardiogram and consult cardiology. patient was started on IV lasix, repeat CXR ordered for tomorrow. at this time will switch to oral lasix and oral Decadron continue to monitor, possi ble discharge in the next 1-2 days. On 12/23/2020 Patient was seen and examined on the medical floor, he is alert and oriented x 3 in no distress, he denies any complaints there is no fever or chills no headache or dizziness no chest pain no shortness of breath no palpitation no cough no nausea or vomiting no abdominal pain no diarrhea no blood in the stools no burning with urination no frequency or urgency and no hematuria, there is no weakness or numbness in any of the extremities no change in vision speech or gait. White blood count is still significantly elevated pro calcitonin is elevated chest x-rays revealing some worsening infectious disease following awaiting further recommendation will continue to monitor On 12/24/2020 Patient was seen and examined on the medical floor, he is alert and oriented x 3 in no distress, he denies any complaints there is no fever or chills no headache or dizziness no chest pain no shortness of breath no palpitation no cough no nausea or vomiting no abdominal pain no diarrhea no blood in the stools no burning with urination no frequency or urgency and no hematuria, there is no weakness or numbness in any of the extremities no change in vision speech or gait. White blood count is still significantly elevated pro calcitonin is elevated chest x-rays revealing some worsening opacities, infectious disease following awaiting further recommendation will continue to monitor, today Will decrease dose of Decadron and continue to monitor On 12/25/2020 Patient was seen and examined on the medical floor, he is alert and oriented x 3 in no distress, he denies any complaints there is no fever or chills no headache or dizziness no chest pain no shortness of breath no palpitation no cough no nausea or vomiting no abdominal pain no diarrhea no blood in the stools no burning with urination no frequency or urgency and no hematuria, there is no weakness or numbness in any of the extremities no change in vision speech or gait. Hemoglobin is down to 6.8 today 1 unit of red blood cell transfusion was ordered will follow closely On 12/27/2020 Patient was seen and examined on the medical floor, he is alert and oriented x 3 in no distress, he has very poor oral intake he denies any complaints there is no fever or chills no headache or dizziness no chest pain no shortness of breath no palpitation no cough no nausea or vomiting no abdominal pain no diarrhea no blood in the stools no burning with urination no frequency or urgency and no hematuria, there is no weakness or numbness in any of the extremities no change in vision speech or gait. Nutrition are recommending appetite stimulant patient will be started on Megace. On 12/28/2020 Patient was seen and examined on the medical floor, he is alert and oriented x 3 in no distress, he denies any complaints there is no fever or chills no headache or dizziness no chest pain no shortness of breath no palpitation no cough no nausea or vomiting no abdominal pain no diarrhea no blood in the stools no burning with urination no frequency or urgency and no hematuria, patient has very poor oral intake, recommendation by nutrition is to start a Dobbhoff tube with enteral feeding will proceed as above. On 12/29/2020 Patient was seen and examined on the medical floor, he is alert and oriented x 3 in no distress, he denies any complaints there is no fever or chills no headache or dizziness no chest pain no shortness of breath no palpitation no cough no nausea or vomiting no abdominal pain no diarrhea no blood in the stools no burning with urination no frequency or urgency and no he maturia, patient was unable to tolerate Dobbhoff tube he pulled it out last night, gastroenterology are following, will monitor patient oral intake and decide whether there is an indication for a PEG tube if patient agrees for that. On 12/30/2020 Patient was seen and examined on the medical floor, he is alert and oriented x 3 in no distress, he denies any complaints there is no fever or chills no headache or dizziness no chest pain no shortness of breath no palpitation no cough no nausea or vomiting no abdominal pain no diarrhea no blood in the stools no burning with urination no frequency or urgency and no hematuria, dietitian is stating that patient is still having very low oral intake. I have discussed possibility of PEG tube with patient, at this time he is stating that he does not want a PEG tube and he is going to try to eat more, will continue to monitor closely. On 12/31/2020 Patient was seen and examined on the medical floor, he is alert and oriented x 3 in no distress, he denies any complaints there is no fever or chills no headache or dizziness no chest pain no shortness of breath no palpitation no cough no nausea or vomiting no abdominal pain no diarrhea no blood in the stools no burning with urination no frequency or urgency and no hematuria, patient was encouraged again to increase his oral intake. On 01/01/2021 Patient was seen and examined on the medical floor, he is alert and oriented x 3 in no distress, he denies any complaints there is no fever or chills no headache or dizziness no chest pain no shortness of breath no palpitation no cough no nausea or vomiting no abdominal pain no diarrhea no blood in the stools no burning with urination no frequency or urgency and no hematuria, there is no weakness or numbness in any of the extremities no change in vision speech or gait., Patient still has very low oral intake, at this time after prolonged discussion with patient and with his nephew Kane Reveles, patient is now agreeable to proceeding with PEG tube for feeding. On 01/02/2021 Patient was seen and examined on the medical floor, he is alert and oriented x 3 in no distress, he denies any complaints there is no fever or chills no headache or dizziness no chest pain no shortness of breath no palpitation no cough no nausea or vomiting no abdominal pain no diarrhea no blood in the stools no burning with urination no frequency or urgency and no hematuria, per nursing staff patient is having a little bit more oral intake today otherwise no change in condition. On 01/03/2021 patient was seen and examined on the medical floor, he is alert and oriented 3 in no distress, today he ate 75% of his meals and seems to be more alert, he is maintained on oxygen at 6 L nasal cannula and oxygen saturation is 92%, he is denying any complaints at this time, patient can possibly be discharged tomorrow he was encouraged to continue to increase his oral intake, will continue with Megace for appetite stimulant will follow in a.m. On 01/04/2021 Patient was seen and examined on the medical floor, he is alert and oriented x 3 in no distress, he is complaining of feeling tired and having generalized weakness otherwise he denies any complaints there is no fever or chills no headache or dizziness no chest pain no shortness of breath no palpitation no cough no nausea or vomiting no abdominal pain no diarrhea no blood in the stools no burning with urination no frequency or urgency and no hematuria. At this time patient is not ready yet for discharge, will continue with current management, will recheck in a.m., patient encouraged again in re alvaro to increasing oral intake, he has anemia with a hemoglobin of 8.0 will give 1 more dose of IV iron today. On 01/05/2021 patient was seen and examined on the medical floor, he is somnolent, responsive to stimuli, answer questions by yes or no and close his eyes again, his condition has deteriorated significantly in the last 24 hours, patient is again not taking any oral intake, at this time possibility of comfort care only was discussed with his family, I called his nephew Kane Reveles on the form, and he stated that he is in agreement with comfort care only, however his brother is coming from [place] to see him, and he wanted him to get medications to keep him comfortable, however he did not want antibiotic and steroid to be discontinued at this time until his brother comes here from [place]. Patient was started on IV morphine 1 mg every 2 hours as needed pain or discomfort, at this time will continue with IV fluid, IV antibiotic, and IV steroids, will monitor closely prognosis is poor. On 01/06/2021 patient is alert confused in no apparent distress, he had episodes of mild agitation and had received 2 doses of IV morphine so far today he has very poor oral intake otherwise no complaints at this. Patient continues to be on IV antibiotic and IV steroids, we are awaiting his nephew to drive in his father from [place] to see his brother, prior to changing his CODE STATUS to comfort care only, per family request. On 01/07/2021 patient is alert slightly confused in no apparent distress, his oral intake remains very poor, patient has refused PEG tube, he remains on IV antibiotics and IV steroids, he continues to lose weight. CODE STATUS was discussed in details with his family, at this point they are regularly able to proceed was comfort care only, however they are waiting for his brother to come up from [place] before proceeding was comfort care. No change to this plan at this point, will recheck in a.m. Objective - Vital Signs Vital signs: Vital Signs Temp 98.5 F 01/07/21 13:20 Pulse 121 H 01/07/21 14:00 Resp 24 01/07/21 13:20 BP 118/69 01/07/21 13:20 Pulse Ox 97 01/07/21 13:20 Intake & Output 01/06/21 01/07/21 01/07/21 18:59 06:59 18:59 Intake Total 0 200 Output Total 2 2 50 Balance -2 -2 150 Weight 33.5 kg 33.5 kg Intake: Intake, IV Titration 200 Amount Cefepime 1 gm In Sodium 50 Chloride 0.9% 50 ml @ 12. 5 mls/hr IVPB DAILY YAHIR Rx#:[id number] Dextrose 5% in Water 1, 150 000 ml @ 75 mls/hr IV . [id number] YAHIR with Sodium Bicarb (1 Meq/ml) 150 ml Rx#:[id number] Oral 0 0 Output: Urine 50 Stool 2 2 Other: Voiding Method Urinal Urinal Diaper Diaper # Voids 1 - Exam In general patient is somnolent, responsive to stimuli HEENT head normocephalic and atraumatic Neck is supple no JVD no goiter no lymphadenopathy no carotid bruit Chest examination is clear to auscultation no crackles no wheezing Cardiac exam reveals regular heart sounds S1 and S2 no gallops no murmurs Abdomen is soft nontender no organomegaly with normal bowel sounds Extremity exam reveals no edema no cyanosis or clubbing Neurological examination reveals no gross focal deficits - Labs CBC & Chem 7: 01/05/21 09:59 01/05/21 09:59 Assessment and Plan Plan: 1. COVID-19 infection 2. Bilateral interstitial pneumonia, possibly related to COVID-19, however bacterial superimposed infection cannot be ruled out 3. Evidence of sepsis, with leukocytosis, hypotension, and elevated lactic acid 4. Acute on chronic renal failure, creatinine on admission in August was 1.5 nephrology consultation requested 5. Severe hyperkalemia 6. Underlying history of COPD 7. Recent history of stroke in August 2020 8. Underlying history of hypertension 9. Underlying history of hyperlipidemia 10. Underlying history of coronary artery disease with previous history of coronary artery bypass graft surgery 11. Underlying history of multiple lumbar compression vertebral fractures. 12. Previous history of anemia and history of GI bleed, Hgb down to 7.7 will consult GI At this time patient is admitted to telemetry floor He received IV fluid boluses He was started on IV heparin and IV Cardizem drip He was started on IV antibiotic Rocephin and Zithromax He was started on steroids prednisone 40 mg daily Pulmonary, nephrology, infectious disease and cardiology consultation requested. Prognosis is poor due to advanced age, severity of illness, and multiple underlying medical conditions Today I spoke was patient nephew for a prolonged phone call. Issues regarding nutrition were discussed in details, poor oral intake on the part of the patient was discussed despite appetite stimulant. Insertion of nasogastric tube for feeding several days ago and the fact that patient has pulled it out and is refusing to have it put back in again was discussed, also possibility of a PEG tube for feeding was discussed, the nephew Kane Reveles will discuss this issues with his family and with patient and will get back with me this afternoon. Also, issues regarding CODE STATUS were discussed in details, I strongly urged his nephew to change his CODE STATUS to no code as he would most likely not survive having a cold and being on a ventilator. The nephew also will discuss all these issues with his other family members and with patient and we will get back with me this afternoon
[2021-01-07 23:28] VITALS: TEMP 96.9
[2021-01-07 23:31] VITALS: BP 91/47; PULSE 122; RESP 20
[2021-01-08] MEDS: MORPHINE SULFATE 2 MG/ML SYRINGE IVP PRN (00:35)
--- NOTE | 2021-01-09 12:18 | P.DS ---
Providers Date of admission: 12/15/20 19:30 Expected date of discharge: 01/08/21 Attending physician: Margaret Boss Consults: 12/15/20 19:30 Consult Physician Routine Consulting Provider: Dilan Mai Consult Reason/Comments: afib rvr, elevated trop Do you want consulting provider notified?: Yes, Notify in am 12/15/20 21:45 Consult Physician Routine Consulting Provider: Jeferson Chou Consult Reason/Comments: COPD Do you want consulting provider notified?: Yes, Notify in am Consult Physician Stat Consulting Provider: Qi Rodriguez Consult Reason/Comments: renal failyre Do you want consulting provider notified?: Already Contacted 12/16/20 11:40 Consult Physician Routine Consulting Provider: Stacey Franklin Consult Reason/Comments: sepsis, COVID-19 Do you want consulting provider notified?: Yes Primary care physician: Margaret Gera [facility] Course: Discharge diagnosis 1. COVID-19 infection 2. Bilateral interstitial pneumonia, possibly related to COVID-19, however bacterial superimposed infection cannot be ruled out 3. Evidence of sepsis, with leukocytosis, hypotension, and elevated lactic acid 4. Acute on chronic renal failure, creatinine on admission in August was 1.5 nephrology consultation requested 5. Severe hyperkalemia 6. Underlying history of COPD 7. Recent history of stroke in August 2020 8. Underlying history of hypertension 9. Underlying history of hyperlipidemia 10. Underlying history of coronary artery disease with previous history of coronary artery bypass graft surgery 11. Underlying history of multiple lumbar compression vertebral fractures. 12. Previous history of anemia and history of GI bleed, Hgb down to 7.7 will consult GI Today I spoke was patient nephew for a prolonged phone call. Issues regarding nutrition were discussed in details, poor oral intake on the part of the patient was discussed despite appetite stimulant. Insertion of nasogastric tube for feeding several days ago and the fact that patient has pulled it out and is refusing to have it put back in again was discussed, also possibility of a PEG tube for feeding was discussed, the nephew Kane Reveles soniya gonzalez discuss this issues with his family and with patient and will get back with me this afternoon. Also, issues regarding CODE STATUS were discussed in details, I strongly urged his nephew to change his CODE STATUS to no code as he would most likely not survive having a cold and being on a ventilator. The nephew also will discuss all these issues with his other family members and with patient and we will get back with me this afternoon Hospital course Fitz Blue, is an 89 year old male who presented to [facility] emergency room with a chief complaint of worsening shortness of breath, patient stated that he started having shortness of breath on the day of presentation that progressed to significant breathing difficulty EMS were called, they found patient to be in significant respiratory distress he was started on nonrebreather mask and was treated with IV Solu-Medrol and DuoNeb updrafts and was brought in to [facility] emergency room. In the emergency room patient was evaluated, his vital examination on presentation revealed a temperature of 98.6 pulse 142 respiration 18 blood pressure 99/78 pulse ox 94% on room air, laboratory data on presentation revealed a white blood count of 13.5 hemoglobin 10.5 platelet count 134 d-dimer 3.88, sodium 140 potassium 5.3 chloride 106 CO2 16 BUN 19 9 creatinine 5.09 glucose level was 136 plasma lactic acid was 3.5 troponin level was elevated at 0.105 C-reactive protein 58.6 Procalcitonin more than 100 and coronavirus PCR was positive. Chest x-ray was done in the emergency room and revealed bilateral interstitial pneumonia, cardiomegaly, small right pleural effusion and pleural reaction , EKG was done in the emergency room and revealed atrial fibrillation with rapid maite tricular response and nonspecific ST abnormality . Patient was admitted to telemetry floor for further evaluation and treatment. Patient was admitted to [facility] in August 2020 after having a stroke, he was discharged to [facility] for rehabilitation and was discharged home about 6 weeks ago. His past medical history is also significant for hypertension, hyperlipidemia, coronary artery disease with history of coronary artery bypass graft surgery, history of COPD, history of pulmonary hypertension, history of multiple lumbar compression vertebral fractures, history of anemia, history of carotid stenosis, history of osteoarthritis, and history of protein calorie malnutrition. On 12/17/2020 patient was seen and examined on the medical floor he is alert and oriented 3 in no apparent distress he is complaining of nausea otherwise he denies any complaints there is no fever or chills no headache or dizziness no chest pain no shortness of breath no cough no vomiting no abdominal pain no diarrhea no blood in the stools no burning with urination no frequency or urgency and no hematuria. Kidney function has improved significantly since yesterday, otherwise no change in condition. On 12/18/2020 patient was seen and examined on the medical floor he is alert and oriented 3 in no apparent distress he is complaining of nausea otherwise he denies any complaints there is no fever or chills no headache or dizziness no chest pain , he has some shortness of breath no cough no vomiting no abdominal pain no diarrhea no blood in the stools no burning with urination no frequency or urgency and no hematuria. Kidney function has improved significantly since yesterday, otherwise no change in condition. On 12/19/2020 patient was seen and examined on the medical floor he is alert and oriented 3 in no apparent distress he is complaining of nausea otherwise he denies any complaints there is no fever or chills no headache or dizziness no chest pain , he has some shortness of breath no cough no vomiting no abdominal pain no diarrhea no blood in the stools no burning with urination no frequency or urgency and no hematuria. Kidney function has improved significantly since yesterday, otherwise no change in condition. BNP is significantly elevated, patient still having shortness of breath, will check Echocardiogram and consult cardiology. On 12/20/2020 patient was seen and examined on the medical floor he is alert and oriented 3 in no apparent distress he is complaining of nausea otherwise he denies any complaints there is no fever or chills no headache or dizziness no chest pain , he has some shortness of breath no cough no vomiting no abdominal pain no diarrhea no blood in the stools no burning with urination no frequency or urgency and no hematuria. Kidney function has improved significantly since yesterday, otherwise no change in condition. BNP is significantly elevated, patient still having shortness of breath, will check Echocardiogram and consult cardiology. patient was started on IV lasix, awaiting Echo. On 12/21/2020 patient was seen and examined on the medical floor he is alert and oriented 3 in no apparent distress he is complaining of nausea otherwise he denies any complaints there is no fever or chills no headache or dizziness no chest pain , he has some shortness of breath no cough no vomiting no abdominal pain no diarrhea no blood in the stools no burning with urination no frequency or urgency and no hematuria. Kidney function has improved significantly since yesterday, otherwise no change in condition. BNP is significantly elevated, patient still having shortness of breath, will check Echocardiogram and consult cardiology. patient was started on IV lasix, repeat CXR ordered for tomorrow. On 12/22/2020 patient was seen and examined on the medical floor he is alert and oriented 3 in no apparent distress he is complaining of nausea otherwise he denies any complaints there is no fever or chills no headache or dizziness no chest pain , he has some shortness of breath no cough no vomiting no abdominal pain no diarrhea no blood in the stools no burning with urination no frequency or urgency and no hematuria. Kidney function has improved significantly since yesterday, otherwise no change in condition. BNP is significantly elevated, patient still having shortness of breath, will check Echocardiogram and consult cardiology. patient was started on IV lasix, repeat CXR ordered for tomorrow. at this time will switch to oral lasix and oral Decadron continue to monitor, possible discharge in the next 1-2 days. On 12/23/2020 Patient was seen and examined on the medical floor, he is alert and oriented x 3 in no distress, he denies any complaints there is no fever or chills no headache or dizziness no chest pain no shortness of breath no palpitation no cough no nausea or vomiting no abdominal pain no diarrhea no blood in the stools no burning with urination no frequency or urgency and no hematuria, there is no weakness or numbness in any of the extremities no change in vision speech or gait. White blood count is still significantly elevated pro calcitonin is elevated chest x-rays revealing some worsening infectious disease following awaiting further recommendation will continue to monitor On 12/24/2020 Patient was seen and examined on the medical floor, he is alert and oriented x 3 in no distress, he denies any complaints there is no fever or chills no headache or dizziness no chest pain no shortness of breath no palpitation no cough no nausea or vomiting no abdominal pain no diarrhea no blood in the stools no burning with urination no frequency or urgency and no hematuria, there is no weakness or numbness in any of the extremities no change in vision speech or gait. White blood count is still significantly elevated pro calcitonin is elevated chest x-rays revealing some worsening opacities, infectious disease following awaiting further recommendation will continue to monitor, today Will decrease dose of Decadron and continue to monitor On 12/25/2020 Patient was seen and examined on the medical floor, he is alert and oriented x 3 in no distress, he denies any complaints there is no fever or chills no headache or dizziness no chest pain no shortness of breath no palpitation no cough no nausea or vomiting no abdominal pain no diarrhea no blood in the stools no burning with urination no frequency or urgency and no hematuria, there is no weakness or numbness in any of the extremities no change in vision speech or gait. Hemoglobin is down to 6.8 today 1 unit of red blood cell transfusion was ordered will follow closely On 12/27/2020 Patient was seen and examined on the medical floor, he is alert and oriented x 3 in no distress, he has very poor oral intake he denies any complaints there is no fever or chills no headache or dizziness no chest pain no shortness of breath no palpitation no cough no nausea or vomiting no abdominal pain no diarrhea no blood in the stools no burning with urination no frequency or urgency and no hematuria, there is no weakness or numbness in any of the extremities no change in vision speech or gait. Nutrition are recommending appetite stimulant patient will be started on Megace. On 12/28/2020 Patient was seen and examined on the medical floor, he is alert and oriented x 3 in no distress, he denies any complaints there is no fever or chills no headache or dizziness no chest pain no shortness of breath no palpitation no cough no nausea or vomiting no abdominal pain no diarrhea no blood in the stools no burning with urination no frequency or urgency and no hematuria, patient has very poor oral intake, recommendation by nutrition is to start a Dobbhoff tube with enteral feeding will proceed as above. On 12/29/2020 Patient was seen and examined on the medical floor, he is alert and oriented x 3 in no distress, he denies any complaints there is no fever or chills no headache or dizziness no chest pain no shortness of breath no palpitation no cough no nausea or vomiting no abdominal pain no diarrhea no blood in the stools no burning with urination no frequency or urgency and no hematuria, patient was unable to tolerate Dobbhoff tube he pulled it out last night, gastroenterology are following, will monitor patient oral intake and decide whether there is an indication for a PEG tube if patient agrees for that. On 12/30/2020 Patient was seen and examined on the medical floor, he is alert and oriented x 3 in no distress, he denies any complaints there is no fever or chills no headache or dizziness no chest pain no shortness of breath no palpitation no cough no nausea or vomiting no abdominal pain no diarrhea no blood in the stools no burning with urination no frequency or urgency and no hematuria, dietitian is stating that patient is still having very low oral intake. I have discussed possibility of PEG tube with patient, at this time he is stating that he does not want a PEG tube and he is going to try to eat more, will continue to monitor closely. On 12/31/2020 Patient was seen and examined on the medical floor, he is alert and oriented x 3 in no distress, he denies any complaints there is no fever or chills no headache or dizziness no chest pain no shortness of breath no palpitation no cough no nausea or vomiting no abdominal pain no diarrhea no blood in the stools no burning with urination no frequency or urgency and no hematuria, patient was encouraged again to increase his oral intake. On 01/01/2021 Patient was seen and examined on the medical floor, he is alert and oriented x 3 in no distress, he denies any complaints there is no fever or chills no headache or dizziness no chest pain no shortness of breath no palpitation no cough no nausea or vomiting no abdominal pain no diarrhea no blood in the stools no burning with urination no frequency or urgency and no hematuria, there is no weakness or numbness in any of the extremities no change in vision speech or gait., Patient still has very low oral intake, at this time after prolonged discussion with patient and with his nephew Kane Reveles, patient is now agreeable to proceeding with PEG tube for feeding. On 01/02/2021 Patient was seen and examined on the medical floor, he is alert and oriented x 3 in no distress, he denies any complaints there is no fever or chills no headache or dizziness no chest pain no shortness of breath no palpitation no cough no nausea or vomiting no abdominal pain no diarrhea no blood in the stools no burning with urination no frequency or urgency and no hematuria, per nursing staff patient is having a little bit more oral intake today otherwise no change in condition. On 01/03/2021 patient was seen and examined on the medical floor, he is alert and oriented 3 in no distress, today he ate 75% of his meals and seems to be more alert, he is maintained on oxygen at 6 L nasal cannula and oxygen saturation is 92%, he is denying any complaints at this time, patient can possibly be discharged tomorrow he was encouraged to continue to increase his oral intake, will continue with Megace for appetite stimulant will follow in a.m. On 01/04/2021 Patient was seen and examined on the medical floor, he is alert and oriented x 3 in no distress, he is complaining of feeling tired and having generalized weakness otherwise he denies any complaints there is no fever or chills no headache or dizziness no chest pain no shortness of breath no palpitation no cough no nausea or vomiting no abdominal pain no diarrhea no blood in the stools no burning with urination no frequency or urgency and no hematuria. At this time patient is not ready yet for discharge, will continue with current management, will recheck in a.m., patient encouraged again in regard to increasing oral intake, he has anemia with a hemoglobin of 8.0 will give 1 more dose of IV iron today. On 01/05/2021 patient was seen and examined on the medical floor, he is somnolent, responsive to stimuli, answer questions by yes or no and close his eyes again, his condition has deteriorated significantly in the last 24 hours, patient is again not taking any oral intake, at this time possibility of comfort care only was discussed with his family, I called his nephew Kane Reveles on the form, and he stated that he is in agreement with comfort care only, however his brother is coming from [place] to see him, and he wanted him to get medications to keep him comfortable, however he did not want antibiotic and steroid to be discontinued at this time until his brother comes here from [place]. Patient was started on IV morphine 1 mg every 2 hours as needed pain or discomfort, at this time will continue with IV fluid, IV antibiotic, and IV steroids, will monitor closely prognosis is poor. On 01/06/2021 patient is alert confused in no apparent distress, he had episodes of mild agitation and had received 2 doses of IV morphine so far today he has very poor oral intake otherwise no complaints at this. Patient continues to be on IV antibiotic and IV steroids, we are awaiting his nephew to drive in his father from [place] to see his brother, prior to changing his CODE STATUS to comfort care only, per family request. On 01/07/2021 patient is alert slightly confused in no apparent distress, his oral intake remains very poor, patient has refused PEG tube, he remains on IV antibiotics and IV steroids, he continues to lose weight. CODE STATUS was discussed in details with his family, at this point they are regularly able to proceed was comfort care only, however they are waiting for his brother to come up from [place] before proceeding was comfort care. No change to this plan at this point, will recheck in a.m. On 01/08/2021 patient was made comfort care per family request. Patient on 01/08/2021 at 1:33 AM Plan - Discharge Summary Discharge Rx Participant: No New Discharge Prescriptions: New Dexamethasone [Decadron] 6 mg PO DAILY 10 Days #10 tablet No Action Metoprolol Tartrate [Lopressor] 25 mg PO TID Zolpidem [Ambien] 10 mg PO HS PRN PRN Reason: Insomnia Megestrol [Megace] 400 mg PO BID Furosemide [Lasix] 20 mg PO DAILY hydrALAZINE HCL [Apresoline] 25 mg PO BID tab Pantoprazole [Protonix] 40 mg PO AC-BRKFST tablet. Discharge Medication List Metoprolol Tartrate [Lopressor] 25 mg PO TID 01/13/18 [History] Furosemide [Lasix] 20 mg PO DAILY 08/25/20 [History] Megestrol [Megace] 400 mg PO BID 08/25/20 [History] Zolpidem [Ambien] 10 mg PO HS PRN 08/25/20 [History] Pantoprazole [Protonix] 40 mg PO AC-BRKFST tablet. 08/31/20 [Rx] hydrALAZINE HCL [Apresoline] 25 mg PO BID tab 08/31/20 [Rx] Dexamethasone [Decadron] 6 mg PO DAILY 10 Days #10 tablet 01/04/21 [Rx] Follow up Appointment(s)/Referral(s): Sofie Cifuentes MD [STAFF PHYSICIAN] - 2 Weeks Margaret Boss MD [Primary Care Provider] - 1-2 days Keo Ambriz MD [STAFF PHYSICIAN] - 2 Weeks Discharge Disposition: - Preliminary Cause of Preliminary Cause of : COVID-19 pneumonia
== END 2021-01-08 04:02 | disposition expired | DRG 871 ==
LOC: EC 18:10 → 3SCARD 19:30
PROVIDERS: ADMIT Internal Medicine; ATTEND Internal Medicine
PROC: 5A09357 Assistance with Respiratory Ventilation, Less than 24 Consecutive Hours, Continuous Positive Airway Pressure (ICD-10-PCS; 2020-12-15)
PROC: 3E0333Z Introduction of Anti-inflammatory into Peripheral Vein, Percutaneous Approach (ICD-10-PCS; principal; 2020-12-16)
PROC: 5A0955A Assistance with Respiratory Ventilation, Greater than 96 Consecutive Hours, High Flow/Velocity Cannula (ICD-10-PCS; 2020-12-29)
PROC: 30233N1 Transfusion of Nonautologous Red Blood Cells into Peripheral Vein, Percutaneous Approach (ICD-10-PCS; 2021-01-06)
DX: A41.89 Other specified sepsis (principal); U07.1 COVID-19; N17.0 Acute kidney failure with tubular necrosis; J12.82 Pneumonia due to coronavirus disease 2019; J96.01 Acute respiratory failure with hypoxia; J69.0 Pneumonitis due to inhalation of food and vomit; J15.6 Pneumonia due to other Gram-negative bacteria; J15.1 Pneumonia due to Pseudomonas; I50.23 Acute on chronic systolic (congestive) heart failure; E87.2 Acidosis; J44.1 Chronic obstructive pulmonary disease with (acute) exacerbation; N18.4 Chronic kidney disease, stage 4 (severe); Z68.1 Body mass index [BMI] 19.9 or less, adult; E44.0 Moderate protein-calorie malnutrition; I13.0 Hypertensive heart and chronic kidney disease with heart failure and stage 1 through stage 4 chronic kidney disease, or unspecified chronic kidney disease; I47.1 Supraventricular tachycardia; I47.2 Ventricular tachycardia; R64 Cachexia; J44.0 Chronic obstructive pulmonary disease with (acute) lower respiratory infection; K56.7 Ileus, unspecified; I27.20 Pulmonary hypertension, unspecified; T82.857A Stenosis of other cardiac prosthetic devices, implants and grafts, initial encounter; I24.8 Other forms of acute ischemic heart disease; Z51.5 Encounter for palliative care; Z95.1 Presence of aortocoronary bypass graft; Z66 Do not resuscitate; M48.56XA Collapsed vertebra, not elsewhere classified, lumbar region, initial encounter for fracture; Z85.118 Personal history of other malignant neoplasm of bronchus and lung; Z87.891 Personal history of nicotine dependence; Z80.1 Family history of malignant neoplasm of trachea, bronchus and lung; I25.10 Atherosclerotic heart disease of native coronary artery without angina pectoris; M19.90 Unspecified osteoarthritis, unspecified site; E87.5 Hyperkalemia; Z86.73 Personal history of transient ischemic attack (TIA), and cerebral infarction without residual deficits; E78.5 Hyperlipidemia, unspecified; I08.1 Rheumatic disorders of both mitral and tricuspid valves; Z95.3 Presence of xenogenic heart valve; D63.1 Anemia in chronic kidney disease; D72.810 Lymphocytopenia; E87.6 Hypokalemia; Z74.01 Bed confinement status; T38.0X5A Adverse effect of glucocorticoids and synthetic analogues, initial encounter; E61.1 Iron deficiency; E86.0 Dehydration; E86.1 Hypovolemia; I49.3 Ventricular premature depolarization; K44.9 Diaphragmatic hernia without obstruction or gangrene; M10.9 Gout, unspecified; R62.7 Adult failure to thrive; T50.2X5A Adverse effect of carbonic-anhydrase inhibitors, benzothiadiazides and other diuretics, initial encounter; K29.70 Gastritis, unspecified, without bleeding; K20.90 Esophagitis, unspecified without bleeding; Z53.29 Procedure and treatment not carried out because of patient's decision for other reasons
CPT/HCPCS: 36415; 71045; 74230; 76770; 80048; 80053; 81003; 82272; 82728; 83540; 83550; 83605; 83615; 83735; 83880; 84145; 84484; 85025; 85027; 85045; 85379; 85610; 85730; 86140; 86850; 86900; 86901; 86920; 87040; 87070; 87077; 87186; 87205; 87449; 87635; 93005; 93306; 93308; 94660; 94760; 96374; 96375; 99291